=== PATIENT | male | born 1945 | race Caucasian/White ===

== ENCOUNTER 2018-01-02 22:37 | Emergency (ER) | payer BC, SELFPAY ==
[2018-01-02] VITALS (15 sets, daily range): BP systolic 103–129; BP diastolic 60–72; PULSE 48–120; RESP 13–21; TEMP 36.5; O2SAT 91–95
--- NOTE | 2018-01-02 22:58 | W.ED.GENAD ---
Discharge Plan Disposition Patient Disposition: HOSPITAL, NON-SPECIFIC Condition: Stable Discharge Details Chief Complaint: Chest Pain Clinical Impression: Acute non-ST elevation myocardial infarction (NSTEMI), Symptomatic bradycardia Primary Care Provider: Myriam Riggins ED Provider: Frank Santos Home Meds and New Rx's Prescriptions: No Action No Known Home Meds RF: 0 Medical Decision Making Patient is presenting to ED with episode of chest pressure and arm pain at home which subsequently resolved but is now having symptomatic bradycardia. His rate will go as low as the 30s. On the monitor it appears to lose his P waves but I do have no EKG to confirm that. He does not stay bradycardic for too long maybe 30-60 seconds. He does become symptomatic but he recovers on his own. He did take aspirin at home. Chest x-ray and laboratory studies are ordered. Patient continues to have episodes of symptomatic bradycardia. They appear to be sinus bradycardia. He subsequently did develop recurrent pain for which he received 1 nitroglycerin sublingually. His pain did resolve but his pressure bottomed out. He received a 500 saline bolus and his blood pressure responded. He has not had any recurrent chest pain or arm pain since then. His laboratory studies are unremarkable. His initial troponin is negative. Second troponin is sent 3 hours after the first. It is now positive at 0.6. He is therefore an NSTEMI. He is started on heparin. I am also giving him Plavix. I am holding off on nitroglycerin as he has no pain and the NTG previously bottomed him out. Case is discussed with [facility], [facility], [facility] all of which have no beds tonight. I then spoke to Dr. Felix at [facility] in [place], [place]. Patient is accepted for transfer there for non-STEMI and symptomatic bradycardia. Note there are no beds at this hospital currently. He does not need emergent cath but he will need urgent cath. Lab Data Lab results reviewed: Yes I reviewed the patient's lab results. ECG Data Attestation: I personally reviewed and interpreted this ECG (s) as follows: Prior ECG tracings: not available for review Interpretation: Initial EKG is sinus bradycardia at 58. Normal intervals and axis. No acute ST elevation. Slight biphasic type T waves in V2 V3. Second EKG continues to show sinus rhythm at 61. No real significant changes in the ST segments. Subsequent EKGs show market bradycardia in the 40s with no acute ST changes HPI General Mode of arrival: ambulatory. Date/Time Provider Initiated Documentation: 01/02/18 22:52. Limitations to Documentation: no limitations. Information obtained by: patient. HPI Narrative: Patient presents to ED with complaints of chest pressure and arm aching. Patient has no significant past medical history. He is a heavy smoker. He was watching TV tonight when he developed pressure in his chest and aching in his left arm. He had no associated symptoms. Symptoms were ongoing for a couple of hours before he took 5 baby aspirin and then decided to come into the ED. During the trip in the chest pressure and arm pain seemed to get better but he started to have episodes of feeling dizzy and lightheaded. He did not ever lose consciousness. He has not had symptoms like this previously. He had been well prior to this. Related Data Home Medications Medication Instructions Recorded Confirmed Unknown [No Known Home Meds] 01/02/18 01/02/18 Allergies Allergy/AdvReac Type Severity Reaction Status Date / Time No Known Allergies Allergy Unverified 01/02/18 22:57 General Stated Complaint: Chest Pain ARI: 2 Review of Systems Review of Systems Unobtainable due to (Acuity of medical condition) [facility] Family History Mother Essential hypertension Heart disease Hyperlipidemia Myocardial infarction Father Essential hypertension Hyperlipidemia Cerebrovascular accident Social History Smoking/Tobacco Use Status: Current every day Surgical History Colonoscopy - MAC (~2001) Exam Const General: cooperative, comfortable and no acute distress Orientation: alert and oriented x3 [facility] Head: normocephalic and atraumatic Eyes Pupils: PERRL Neck Neck: trachea midline and supple Resp Effort & Inspection: normal respiratory effort Auscultation: clear to auscultation bilaterally Cardio Rate: regular rate Rhythm: regular rhythm Heart Sounds: S1 normal and S2 normal Pulses: radial pulses present GI Palpation: soft, not firm, no guarding and nontender Skin General skin exam: no rashes or lesions noted Neuro General: alert, oriented x3, no focal motor deficits and CN's II-XI intact bilaterally Extrem General: normal to inspection and no clubbing, cyanosis or edema Course Vital Signs Temperature 97.7 F 01/02/18 22:45 Pulse 66 01/02/18 22:45 Respiratory Rate 18 01/02/18 22:45 Blood Pressure 109/60 01/02/18 22:45 Pulse Oximetry 95 01/02/18 22:45 Temperature 97.7 F 01/02/18 22:45 Temperature Source Temporal Artery Scan 01/02/18 22:45 Pulse 66 01/02/18 22:45 Respiratory Rate 13 01/02/18 22:53 Respiratory Effort 01/02/18 22:53 Respiratory Depth Normal 01/02/18 22:53 Respiratory Pattern Normal 01/02/18 22:53 Blood Pressure 109/60 01/02/18 22:45 Pulse Oximetry 95 01/02/18 22:45 Oxygen Delivery Method Room Air 01/02/18 22:45 Oxygen Flow Rate 0 01/02/18 22:45 Pain Level 0 01/02/18 22:53 Critical Care Time Critical Care Time: Yes Total Critical Care Time: 75 Attestation: NSTEMI with bradycardia requiring transfer
--- NOTE | 2018-01-02 23:25 | DI.RAD_ITS ---
SYMPTOMS/DIAGNOSIS: CHEST PAIN PORTABLE AP CHEST: The heart is not enlarged. The lungs appear grossly clear and well expanded with minimal linear radiodensities in the lung bases consistent with scarring or atelectasis. CONCLUSION: No evidence of acute disease.
[2018-01-02 23:29] LABS: Abs Immature Grans 0.01 k/cumm (0.0-0.09); Absolute Basophil Count 0.07 k/cumm (0.0-0.2); Absolute Eosinophil Count 0.64 k/cumm (0.0-0.7); Absolute Lymphocyte Count 3.83 k/cumm (1.2-3.4); Absolute Monocyte Count 0.91 k/cumm (0.11-0.7); Absolute Neutrophil Count 4.21 k/cumm (1.2-6.7); Basophils % 0.7; Eosinophils % 6.6; HGB 15.1 g/dL (13.5-17.5); Immature Grans % 0.1; Lymphocytes % 39.6; Mean Corp. HGB Concentration 34.3 g/dL (32.0-36.0); Mean Corpuscular Hemoglobin 31.4 pg (27.0-33.0); Mean Corpuscular Volume 91.5 fL (80-95); Mean Platelet Volume 10.4 fL (8.0-11.0); Monocytes % 9.4; Neutrophils % 43.6; Platelet Count 277 x1000/uL (130-400); RBC 4.81 m/cumm (4.50-6.00); RBC Distribution Width 13.1 % (11.8-14.1); White Blood Cell Count 9.67 k/cumm (4.4-10.8)
[2018-01-02 23:43] LABS: PTT Activated 23.4 sec (21.0-31.4); Prothrombin Time 9.4 sec (9.3-10.8)
[2018-01-02 23:46] LABS: ALT 27 U/L (12-78); AST 20 U/L (15-37); Albumin 3.4 g/dL (3.4-5.0); Alkaline Phosphatase 92 U/L (46-116); Anion Gap 8.8 mmol/L (3-11); BUN 16 mg/dL (7-18); Bilirubin, Total 0.2 mg/dL (0.2-1.0); CO2 29.2 mmol/L (21.0-32.0); CREATININE 1.24 mg/dL (0.70-1.30); Calcium 8.4 mg/dL (8.5-10.1); Chloride 99 mmol/L (98-107); Estimated GFR 57.47 (mL/min/1.73m2); Glucose 161 mg/dL (70-100); Potassium 3.5 mmol/L (3.5-5.1); Sodium 137 mmol/L (136-145); Total Protein 6.7 g/dL (6.4-8.2)
[2018-01-02 23:47] LABS: Bilirubin, Direct < 0.05 mg/dL (0.00-0.20); Troponin I < 0.02 ng/mL (0.00-0.06)
[2018-01-03] VITALS (55 sets, daily range): BP systolic 65–155; BP diastolic 35–70; PULSE 38–81; RESP 10–26; O2SAT 89–96
--- NOTE | 2018-01-03 00:09 | DI.VRAD_ITS ---
EXAM: XR Chest, 1 View EXAM DATE/TIME: 01/02/2018 11:22 PM CLINICAL HISTORY: 72 years old, male; Pain; Chest pain; Type not specified TECHNIQUE: XR of the chest, 1 view. COMPARISON: CR CHEST 2 VIEWS PA,LAT 03/11/2013 12:51 PM FINDINGS: Lungs: Unremarkable. No consolidation. Pleural space: Unremarkable. No pleural effusion. No pneumothorax. Heart/Mediastinum: Unremarkable. No cardiomegaly. Bones/joints: Unremarkable. IMPRESSION: No acute findings. Dictated and Authenticated by: Wolf Otero MD. Ordering:DIMITRY IBARRA MD
--- NOTE | 2018-01-03 00:35 | ED.GENADUL_ITS ---
Discharge Plan Disposition Patient Disposition: HOSPITAL, NON-SPECIFIC Condition: Stable Discharge Details Chief Complaint: Chest Pain Clinical Impression: Acute non-ST elevation myocardial infarction (NSTEMI), Symptomatic bradycardia Primary Care Provider: Myriam Riggins ED Provider: Frank Santos Home Meds and New Rx's Prescriptions: No Action No Known Home Meds RF: 0 Medical Decision Making Patient is presenting to ED with episode of chest pressure and arm pain at home which subsequently resolved but is now having symptomatic bradycardia. His rate will go as low as the 30s. On the monitor it appears to lose his P waves but I do have no EKG to confirm that. He does not stay bradycardic for too long maybe 30-60 seconds. He does become symptomatic but he recovers on his own. He did take aspirin at home. Chest x-ray and laboratory studies are ordered. Patient continues to have episodes of symptomatic bradycardia. They appear to be sinus bradycardia. He subsequently did develop recurrent pain for which he received 1 nitroglycerin sublingually. His pain did resolve but his pressure bottomed out. He received a 500 saline bolus and his blood pressure responded. He has not had any recurrent chest pain or arm pain since then. His laboratory studies are unremarkable. His initial troponin is negative. Second troponin is sent 3 hours after the first. It is now positive at 0.6. He is therefore an NSTEMI. He is started on heparin. I am also giving him Plavix. I am holding off on nitroglycerin as he has no pain and the NTG previously bottomed him out. Case is discussed with [facility], [facility], [facility] all of which have no beds tonight. I then spoke to Dr. Felix at [facility] in [place], [place]. Patient is accepted for transfer there for non-STEMI and symptomatic bradycardia. Note there are no beds at this hospital currently. He does not need emergent cath but he will need urgent cath. Lab Data Lab results reviewed: Yes I reviewed the patient's lab results. ECG Data Attestation: I personally reviewed and interpreted this ECG (s) as follows: Prior ECG tracings: not available for review Interpretation: Initial EKG is sinus bradycardia at 58. Normal intervals and axis. No acute ST elevation. Slight biphasic type T waves in V2 V3. Second EKG continues to show sinus rhythm at 61. No real significant changes in the ST segments. Subsequent EKGs show market bradycardia in the 40s with no acute ST changes HPI General Mode of arrival: ambulatory . Date/Time Provider Initiated Documentation: 01/02/18 22:52 . Limitations to Documentation: no limitations . Information obtained by: patient . HPI Narrative: Patient presents to ED with complaints of chest pressure and arm aching. Patient has no significant past medical history. He is a heavy smoker. He was watching TV tonight when he developed pressure in his chest and aching in his left arm. He had no associated symptoms. Symptoms were ongoing for a couple of hours before he took 5 baby aspirin and then decided to come into the ED. During the trip in the chest pressure and arm pain seemed to get better but he started to have episodes of feeling dizzy and lightheaded. He did not ever lose consciousness. He has not had symptoms like this previously. He had been well prior to this. Related Data Home Medications Medication Instructions Recorded Confirmed Unknown [No Known Home Meds] 01/02/18 01/02/18 Allergies Allergy/AdvReac Type Severity Reaction Status Date / Time No Known Allergies Allergy Unverified 01/02/18 22:57 General Stated Complaint: Chest Pain ARI: 2 Review of Systems Review of Systems Unobtainable due to (Acuity of medical condition) [facility] Family History Mother Essential hypertension Heart disease Hyperlipidemia Myocardial infarction Father Essential hypertension Hyperlipidemia Cerebrovascular accident Social History Smoking/Tobacco Use Status: Current every day Surgical History Colonoscopy - MAC (~2001) Exam Const General: cooperative, comfortable and no acute distress Orientation: alert and oriented x3 [facility] Head: normocephalic and atraumatic Eyes Pupils: PERRL Neck Neck: trachea midline and supple Resp Effort & Inspection: normal respiratory effort Auscultation: clear to auscultation bilaterally Cardio Rate: regular rate Rhythm: regular rhythm Heart Sounds: S1 normal and S2 normal Pulses: radial pulses present GI Palpation: soft, not firm, no guarding and nontender Skin General skin exam: no rashes or lesions noted Neuro General: alert, oriented x3, no focal motor deficits and CN's II-XI intact bilaterally Extrem General: normal to inspection and no clubbing, cyanosis or edema Course Vital Signs Temperature 97.7 F 01/02/18 22:45 Pulse 66 01/02/18 22:45 Respiratory Rate 18 01/02/18 22:45 Blood Pressure 109/60 01/02/18 22:45 Pulse Oximetry 95 01/02/18 22:45 Temperature 97.7 F 01/02/18 22:45 Temperature Source Temporal Artery Scan 01/02/18 22:45 Pulse 66 01/02/18 22:45 Respiratory Rate 13 01/02/18 22:53 Respiratory Effort 01/02/18 22:53 Respiratory Depth Normal 01/02/18 22:53 Respiratory Pattern Normal 01/02/18 22:53 Blood Pressure 109/60 01/02/18 22:45 Pulse Oximetry 95 01/02/18 22:45 Oxygen Delivery Method Room Air 01/02/18 22:45 Oxygen Flow Rate 0 01/02/18 22:45 Pain Level 0 01/02/18 22:53 Critical Care Time Critical Care Time: Yes Total Critical Care Time: 75 Attestation: NSTEMI with bradycardia requiring transfer
[2018-01-03] MEDS: Normal Saline 500 ML IV (00:49)
[2018-01-03] MEDS: Clopidogrel 300 MG TAB 600 MG PO (03:14)
[2018-01-03] MEDS: Normal Saline 1,000 ML 150 ML IV (04:26)
[2018-01-03] MEDS: Ondansetron 4 MG/2 ML VIAL IVP (04:26)
== END 2018-01-03 05:21 | disposition short-term general hospital (02) ==
PROVIDERS: Nurse Practitioner Family; Emergency Provider Emergency Medicine; PCP Family Medicine
DX: I21.4 Non-ST elevation (NSTEMI) myocardial infarction (principal); R00.1 Bradycardia, unspecified; F17.210 Nicotine dependence, cigarettes, uncomplicated
CPT/HCPCS: 36415; 80053; 80076; 93005; 96361; 96365; 96366; 96375; 96376; 99291; 99292; 71045; 83735; 84484; 85025; 85610; 85730; 93010; J2405

== ENCOUNTER 2018-01-24 12:26 | Emergency (ER) | payer BC, SELFPAY ==
[2018-01-24] VITALS (26 sets, daily range): BP systolic 106–169; BP diastolic 63–80; PULSE 56–78; RESP 7–19; TEMP 36.5; O2SAT 96–100
[2018-01-24 12:53] LABS: Abs Immature Grans 0.04 k/cumm (0.0-0.09); Absolute Basophil Count 0.11 k/cumm (0.0-0.2); Absolute Eosinophil Count 0.45 k/cumm (0.0-0.7); Absolute Lymphocyte Count 2.06 k/cumm (1.2-3.4); Absolute Monocyte Count 0.99 k/cumm (0.11-0.7); Absolute Neutrophil Count 4.41 k/cumm (1.2-6.7); Basophils % 1.4; Eosinophils % 5.6; HCT 34.3 % (40.0-50.0); HGB 11.1 g/dL (13.5-17.5); Immature Grans % 0.5; Lymphocytes % 25.6; Mean Corp. HGB Concentration 32.4 g/dL (32.0-36.0); Mean Corpuscular Hemoglobin 30.7 pg (27.0-33.0); Mean Platelet Volume 8.6 fL (8.0-11.0); Monocytes % 12.3; Neutrophils % 54.6; RBC 3.61 m/cumm (4.50-6.00); RBC Distribution Width 13.8 % (11.8-14.1); White Blood Cell Count 8.06 k/cumm (4.4-10.8)
[2018-01-24 13:00] LABS: Platelet Count 831 x1000/uL (130-400)
[2018-01-24 13:10] LABS: ALT 56 U/L (12-78); AST 28 U/L (15-37); Albumin 3.2 g/dL (3.4-5.0); Alkaline Phosphatase 212 U/L (46-116); Anion Gap 8.5 mmol/L (3-11); BUN 17 mg/dL (7-18); Bilirubin, Total 0.3 mg/dL (0.2-1.0); CO2 26.5 mmol/L (21.0-32.0); CREATININE 0.99 mg/dL (0.70-1.30); Calcium 8.7 mg/dL (8.5-10.1); Chloride 102 mmol/L (98-107); Glucose 97 mg/dL (70-100); NT-proBNP 928 pg/mL; Potassium 4.4 mmol/L (3.5-5.1); Sodium 137 mmol/L (136-145)
[2018-01-24 13:11] LABS: Troponin I < 0.02 ng/mL (0.00-0.06)
[2018-01-24 13:23] LABS: D-Dimer 4122 ng/mlFEU (<500)
--- NOTE | 2018-01-24 13:25 | ED.GENADUL_ITS ---
Discharge Plan Disposition Patient Disposition: HOME Condition: Good Discharge Details Chief Complaint: GenMedical Clinical Impression: SOB (shortness of breath) Primary Care Provider: Myriam Riggins ED Provider: Chase Mosley Home Meds and New Rx's Prescriptions: New furosemide 20 mg tablet 20 mg PO DAILY Qty: 14 RF: 0 No Action atorvastatin 80 mg Tablet 80 mg PO QPM RF: 0 clopidogrel 75 mg Tablet 75 mg PO DAILY RF: 0 aspirin 81 mg Tablet,Chewable 81 mg PO DAILY RF: 0 metoprolol tartrate 25 mg Tablet 25 mg PO DAILY RF: 0 acetaminophen [Tylenol] 325 mg Capsule 975 mg PO Q6H PRNRF: 0 Discharge Instructions Instructions: Dyspnea (ED) Additional Instructions: Please take 20 mg of Lasix daily until you are seen and reassessed by your cardiothoracic surgeon at your scheduled appointment next week. If you notice any worsening of your symptoms, or any new symptoms such as vomiting, diarrhea, fever, chills, shortness of breath, chest pain, numbness, weakness, or fainting , please return immediately to the emergency department for reevaluation. Please follow up with your primary care provider as soon as possible for reassessment and reevaluation. As always, it was a pleasure participating in your medical care today. Referrals: Myriam Riggins MD, [place] [Primary Care Provider] - Medical Decision Making This is a pleasant 72-year-old male who presents for evaluation of 3 pound weight gain in the last 12 hours, with very mild shortness of breath. He denies any significant chest pain. He recently had open heart surgery at [facility], which was complicated by bilateral pneumothoraces. He was discharged 5 days ago. He has been doing very well since then, taking his medications as directed, having no other associated complaints. With his brief weight gain, and very mild shortness of breath he did come in to be checked out. No history of blood clots or other past medical history. Physical exam demonstrates well-healing postsurgical scars, no evidence of dehiscence or abnormalities. No significant swelling in the lower extremities. We will perform a laboratory workup, an imaging study of the chest to rule out any acute process. We will get a d-dimer as he is slightly at increased risk for blood clots after his recent procedure. This is negative I think a CT scan of the chest will be reasonable with his multiple recent surgical complications. EKG 12: 37 Rate 67, intervals normal, sinus rhythm, no ST elevations or depressions. Inverted T wave in V2 and V1. No Q waves. No other significant abnormalities. 3:[address] scan has returned and demonstrates evidence of no acute process, postsurgical processes are noted, but no other significant abnormalities. Patient is feeling well, demonstrates reassuring vital signs, and on the small increase in his proBNP on workup. Troponin and EKG are normal. I discussed the case with Evelia Sidhu the nurse practitioner for Dr. Fitzgerald[facility] with a cardiothoracic surgeon. She agrees with the plan, lab findings, and imaging studies, and has no additional recommendations for workup. She too feels that he would be a safe and stable candidate for discharge home. She recommends starting 40 mg of Lasix here, and then 20 daily for his 3 pound weight gain. She recommends continued close follow-up at his appointment next week. Patient will be given his first dose of Lasix here. We discussed red flags which to return as well as the importance of close follow-up with PCP. I have extensively reviewed the treatment plan and discharge instructions with the patient. I have addressed all patient concerns at this time. The patient was made aware of what symptoms to monitor for that would warrant a return to the emergency department. Discussed the plan with the patient, they demonstrate verbal understanding and agreement with our assessment and plan at this time. CT ANGIOGRAPHY CHEST: CT angiography was performed with multi slice acquisition and multi planar and 3D reconstruction. CT Angiography of the chest was performed with a bolus infusion of 100 cc's of Omnipaque 350. Images obtained through the upper abdomen show unremarkable appearance of visualized portions of the liver, spleen, adrenals, kidneys and pancreas. The patient has reportedly had recent CABG surgery and recent bilateral pneumothorax. There are small posteriorly located loculated pleural effusions. There is a tiny pericardial effusion. There is a small quantity of gas in the right anterior chest wall at the level of the lung apex. No pneumothorax seen. The tracheobronchial tree appears intact. Numerous pulmonary blebs are noted and there is diffuse central lobular emphysema. No focal consolidation. No mediastinal or hilar adenopathy. No gross hematoma identified. CONCLUSION: Presumed post surgical findings as described above. No evidence of acute pulmonary embolus or pneumothorax. HPI General Date/Time Provider Initiated Documentation: 01/24/18 12:33 . HPI Narrative: This is a 72-year-old male who had no past medical history prior to his most recent hospital visit 2 weeks ago, however he was here on the of this past month and was diagnosed with an end STEMI, transferred to [facility] for medical management and eventually received a CABG. He was discharged 5 days ago. Since then he has been doing well. He has had no atypical chest pain, shortness of breath or weight gain, he has been taking his aspirin, Plavix, metoprolol, and cholesterol medications as directed. However last night he became slightly short of breath, weight himself and noticed a prompt 3 pound weight gain. He denies any swelling in his lower extremities, any cough, fever, chills, pleuritic chest pain, arm or neck pain, numbness tingling or weakness. He denies any other symptoms. He states that he came in today to get checked out. He denies any aggravating or relieving factors. He denies any other complaints at this time. He denies any current tobacco use, alcohol use, IV or illicit drug use. Related Data Home Medications Medication Instructions Recorded Confirmed acetaminophen [Tylenol] 975 mg PO Q6H PRN 01/24/18 01/24/18 aspirin 81 mg PO DAILY 01/24/18 01/24/18 atorvastatin 80 mg PO QPM 01/24/18 01/24/18 clopidogrel 75 mg PO DAILY 01/24/18 01/24/18 furosemide 20 mg PO DAILY #14 tab 01/24/18 metoprolol tartrate 25 mg PO DAILY 01/24/18 01/24/18 Previous Rx's Medication Instructions Recorded furosemide 20 mg PO DAILY #14 tab 01/24/18 Allergies Allergy/AdvReac Type Severity Reaction Status Date / Time No Known Allergies Allergy Unverified 01/02/18 22:57 General Stated Complaint: GenMedical ARI: 3 Review of Systems Review of Systems All systems reviewed & are unremarkable except as noted in HPI and below Exam Narrative Exam Narrative: 1.Const: Well-nourished, Well-developed, appearing stated age 2.Eyes: PERRL, no conjunctival injection, and symmetrical lids. 3.ENT: Atraumatic external nose and ears. Moist MM. Neck: Symmetric, trachea midline, No thyromegaly. 4.CVS: +S1/S2, No murmurs or gallops. Peripheral pulses 2+ and equal in all extremities. Brisk capillary refill in all extremities. Patient's chest wall demonstrates a well-healing sternotomy scar, as well as 3 other well-healing sutures on each left and right chest wall in the epigastric region for previous chest tube and drain placement. Areas are clean dry and intact. No other significant abnormalities, no evidence of dehiscence. No subcutaneous crepitus. 5.RESP: Unlabored respiratory effort. Clear to auscultation bilaterally. No wheezes rales or rhonchi 6.GI: Soft, Nontender/Nondistended, No hepatosplenomegaly. No guarding or rebound. 7.MSK: Normocephalic/Atraumatic, Extremities w/o deformity or ttp No cyanosis or clubbing, Normal movement of all extremities. Patient demonstrates no pitting edema or swelling of his lower extremities. Well-healing incisions from saphenous vein extraction on the right lower extremity. 8.Skin: Warm, Dry. No rashes or lesions. 9.Neuro: flatwork feeder II-XII grossly intact. Sensation grossly intact, no focal neurologic deficits. 10.Psych: (AAO) x3. Appropriate mood and affect Course Vital Signs Temperature 36.5 C 01/24/18 12:33 Pulse 63 01/24/18 12:33 Respiratory Rate 14 01/24/18 12:33 Blood Pressure 169/80 H 01/24/18 12:33 Pulse Oximetry 100 01/24/18 12:33 Temperature 36.5 C 01/24/18 12:33 Temperature Source Temporal Artery Scan 01/24/18 12:33 Pulse 63 01/24/18 12:33 Respiratory Rate 14 01/24/18 12:33 Respiratory Effort 01/24/18 13:02 Respiratory Depth Normal 01/24/18 13:02 Blood Pressure 169/80 H 01/24/18 12:33 Blood Pressure Position Sitting 01/24/18 12:33 Pulse Oximetry 100 01/24/18 12:33 Oxygen Delivery Method Room Air 01/24/18 12:33 Oxygen Flow Rate 0 01/24/18 12:33 Pain Level 0 01/24/18 12:33 Lab/Test Results Lab/Test Results: Laboratory Tests Range/Units 01/24/18 01/24/18 12:45 12:45 WBC (4.4-10.8) k/cumm 8.06 RBC (4.50-6.00) m/cumm 3.61 L Hgb (13.5-17.5) g/dL 11.1 L Hct (40.0-50.0) % 34.3 L MCV (80-95) fL 95.0 MCH (27.0-33.0) pg 30.7 MCHC (32.0-36.0) g/dL 32.4 RDW (11.8-14.1) % 13.8 Plt Count (130-400) x1000/uL 831 H* D MPV (8.0-11.0) fL 8.6 Immature Gran % 0.5 Neutrophils % 54.6 Lymphocytes % 25.6 Monocytes % 12.3 Eosinophils % 5.6 Basophils % 1.4 Absolute Neutrophils (1.2-6.7) k/cumm 4.41 Absolute Lymphocytes (1.2-3.4) k/cumm 2.06 Absolute Monocytes (0.11-0.7) k/cumm 0.99 H Absolute Eosinophils (0.0-0.7) k/cumm 0.45 Absolute Basophils (0.0-0.2) k/cumm 0.11 Sodium (136-145) mmol/L 137 Potassium (3.5-5.1) mmol/L 4.4 Chloride (98-107) mmol/L 102 Carbon Dioxide (21.0-32.0) mmol/L 26.5 Anion Gap (3-11) mmol/L 8.5 BUN (7-18) mg/dL 17 Creatinine (0.70-1.30) mg/dL 0.99 Estimated GFR/1.73 m2 (mL/min/1.73m2) >= 60.00 Glucose (70-100) mg/dL 97 Calcium (8.5-10.1) mg/dL 8.7 Total Bilirubin (0.2-1.0) mg/dL 0.3 AST (15-37) U/L 28 ALT (12-78) U/L 56 Alkaline Phosphatase (46-116) U/L 212 H Troponin I (0.00-0.06) ng/mL < 0.02 NT-Pro-B Natriuret Pep ( - 299) pg/mL 928 H Total Protein (6.4-8.2) g/dL 7.0 Albumin (3.4-5.0) g/dL 3.2 L
--- NOTE | 2018-01-24 14:24 | NUR.NOTE ---
Pt. is resting in NAD, VSS on the monitor. Awaiting CT scan.
[2018-01-24] MEDS: Omnipaque 350 MG/ML 100 ML BTL IJ (14:30)
[2018-01-24] MEDS: Furosemide 40 MG TAB PO (15:35)
== END 2018-01-24 15:44 | disposition home or self-care (01) ==
PROVIDERS: Emergency Provider Student in an Organized Health Care Education/Training Program; PCP Family Medicine
DX: R06.02 Shortness of breath (principal); R63.5 Abnormal weight gain; Z95.1 Presence of aortocoronary bypass graft
CPT/HCPCS: 36415; 71275; 80053; 93005; 99285; 83880; 84484; 85025; 85379; 93010; J3490

== ENCOUNTER 2018-02-04 15:00 | Outpatient (RCR) | payer BC, SELFPAY | END 2018-02-08 23:59 | disposition home or self-care (01) | LOC: CR 15:00 | PROVIDERS: PCP Family Medicine; Visit Provider Family Medicine | DX: Z51.89 Encounter for other specified aftercare (principal) ==

== ENCOUNTER 2018-02-27 01:56 | Outpatient (CLI) | payer BC, SELFPAY ==
[2018-02-27 12:15] LABS: ALT 64 U/L (12-78); AST 31 U/L (15-37); Albumin 3.7 g/dL (3.4-5.0); Alkaline Phosphatase 146 U/L (46-116); Anion Gap 10.2 mmol/L (3-11); BUN 15 mg/dL (7-18); Bilirubin, Total 0.3 mg/dL (0.2-1.0); CO2 27.8 mmol/L (21.0-32.0); CREATININE 1.16 mg/dL (0.70-1.30); Calcium 8.7 mg/dL (8.5-10.1); Chloride 100 mmol/L (98-107); Cholesterol 157 mg/dL (50-200); Glucose 202 mg/dL (70-100); HDL Cholesterol 54 mg/dL (40-60); LDL CHOLESTEROL 78 mg/dL (<100); Potassium 4.5 mmol/L (3.5-5.1); Sodium 138 mmol/L (136-145); Total Protein 6.8 g/dL (6.4-8.2); Triglyceride 212 mg/dL (30-150)
== END 2018-02-27 02:16 ==
PROVIDERS: PCP Family Medicine; Visit Provider Family Medicine
DX: I25.10 Atherosclerotic heart disease of native coronary artery without angina pectoris (principal)
CPT/HCPCS: 36415; 80053; 80061; 83721

== ENCOUNTER 2018-03-01 13:50 | Outpatient (RCR) | payer BC, SELFPAY | END 2018-03-11 23:59 | disposition home or self-care (01) | LOC: CR 13:50 | PROVIDERS: PCP Family Medicine; Visit Provider Family Medicine | DX: I25.2 Old myocardial infarction (principal); I25.10 Atherosclerotic heart disease of native coronary artery without angina pectoris; Z51.89 Encounter for other specified aftercare | CPT/HCPCS: S9472 ==

== ENCOUNTER 2018-03-11 11:30 | Outpatient (CLI) | payer BC, SELFPAY ==
--- NOTE | 2018-03-11 10:35 | DI.RAD_ITS ---
SYMPTOMS/DIAGNOSIS: CHF, RECENT CABG, I50.9 HEART FAILURE PA AND LATERAL CHEST: Comparison is made with [id number]. The heart size is normal. The patient is status post CABG. The lungs appear hyperinflated. There is no evidence of infiltrate, effusion or pulmonary edema. IMPRESSION: COPD. No acute abnormality.
[2018-03-11 13:18] LABS: ALT 69 U/L (12-78); AST 29 U/L (15-37); Albumin 3.6 g/dL (3.4-5.0); Alkaline Phosphatase 147 U/L (46-116); Anion Gap 5.7 mmol/L (3-11); BUN 14 mg/dL (7-18); Bilirubin, Total 0.3 mg/dL (0.2-1.0); CO2 31.3 mmol/L (21.0-32.0); CREATININE 1.06 mg/dL (0.70-1.30); Calcium 8.6 mg/dL (8.5-10.1); Chloride 104 mmol/L (98-107); Glucose 83 mg/dL (70-100); NT-proBNP 421 pg/mL; Potassium 4.4 mmol/L (3.5-5.1); Sodium 141 mmol/L (136-145); TSH (W/Ref FT4) 1.98 uIU/mL (0.358-3.74); Total Protein 6.9 g/dL (6.4-8.2)
== END 2018-03-11 11:50 ==
PROVIDERS: PCP Family Medicine; Visit Provider Family Medicine
DX: I50.9 Heart failure, unspecified (principal); J44.9 Chronic obstructive pulmonary disease, unspecified; Z95.1 Presence of aortocoronary bypass graft
CPT/HCPCS: 36415; 80053; 71046; 83880; 84443

== ENCOUNTER 2018-03-13 01:37 | Outpatient (CLI) | payer BC, SELFPAY ==
--- NOTE | 2018-03-13 07:30 | MERGE_ITS ---
*[facility]* *[facility]* [address] [place] [address] Date of study: 03/13/2018 Transthoracic Echocardiography M-mode, complete 2D, complete spectral Doppler, and color Doppler *STUDY CONCLUSIONS* Summary: 1. Left ventricle: The cavity size was normal. Wall thickness was increased in a pattern of mild LVH. Systolic function was normal. The estimated ejection fraction was 55-60%. Wall motion was normal; there were no regional wall motion abnormalities. 2. Aortic valve: Sclerosis without stenosis. 3. Ascending aorta: The ascending aorta was mildly dilated. 4. Right ventricle: The cavity size was normal. Wall thickness was normal. Systolic function was normal. 5. Inferior vena cava: The vessel was patent and small, appearing collapsed. The respirophasic diameter changes were in the normal range (greater than or equal to 50%). *PATIENT PRESENTATION* Height: 177.8cm ((70in) ) S/D Pressure: 114 / 63 Weight: 83kg ((182.6lb) ) BSA: 2.04m^2 Test start time: 07:40 AM. Test stop time: 08:40 AM. ORDERING Myriam Riggins REFERRING Myriam Riggins PERFORMING [facility] ARTS THERAPIST RT Mary Jane (Luis Fernando)(STEFFI), STEVEN *PROCEDURE DATA* Procedure information: The patient was identified by two identifiers. This study was interpreted by [facility]. Pertinent images and digital data are archived for permanent storage and are available for subsequent review. No prior study was available for comparison. Study status: Routine. Transthoracic echocardiography. M-mode, complete 2D, complete spectral Doppler, and color Doppler. A Transthoracic Echocardiogram was performed. Scanning was performed from the parasternal, apical, subcostal, and suprasternal notch acoustic windows. Images were obtained using an [id number] cardiac ultrasound machine. Image quality was adequate. Study completion: The patient tolerated the procedure well. There were no complications. History: PMH: CHF recent cabg. *CARDIAC ANATOMY* Left ventricle: The cavity size was normal. Wall thickness was increased in a pattern of mild LVH. Systolic function was normal. The estimated ejection fraction was 55-60%. Wall motion was normal; there were no regional wall motion abnormalities. Diastolic parameters were not diagnostic. Aortic valve: Trileaflet; mildly thickened, mildly calcified leaflets. Sclerosis without stenosis. Mobility was not restricted. Doppler: Transvalvular velocity was within the normal range. There was no stenosis. There was no significant regurgitation. VTI ratio of LVOT to aortic valve: 0.71. Valve area (VTI): 2.5cm^2. Indexed valve area (VTI): 1.2cm^2/m^2. Peak velocity ratio of LVOT to aortic valve: 0.68. Valve area (Vmax): 2.4cm^2. Indexed valve area (Vmax): 1.2cm^2/m^2. Mean velocity ratio of LVOT to aortic valve: 0.61. Valve area (Vmean): 2.1cm^2. Indexed valve area (Vmean): 1cm^2/m^2. Mean gradient (S): 6.1mm Hg. Peak gradient (S): 10.8mm Hg. Aorta: Aortic root: The aortic root was normal in size. Ascending aorta: The ascending aorta was mildly dilated. Mitral valve: Structurally normal valve. Mobility was not restricted. Doppler: Transvalvular velocity was within the normal range. There was no evidence for stenosis. There was no significant regurgitation. Valve area by pressure half-time: 2.9cm^2. Indexed valve area by pressure half-time: 1.4cm^2/m^2. Left atrium: The atrium was normal in size. Right ventricle: The cavity size was normal. Wall thickness was normal. Systolic function was normal. Pulmonic valve: Structurally normal valve. Doppler: Transvalvular velocity was within the normal range. There was no evidence for stenosis. There was no significant regurgitation. Peak gradient (S): 4.1mm Hg. Tricuspid valve: Structurally normal valve. Doppler: Transvalvular velocity was within the normal range. There was no evidence for stenosis. There was mild regurgitation. Pulmonary artery: Pulmonary systolic pressure was within the normal range, in the range of 30mm Hg to 35mm Hg. Right atrium: The atrium was normal in size. Pericardium: There was no pericardial effusion. Systemic veins: Inferior vena cava: Well visualized. The vessel was patent and small, appearing collapsed. The respirophasic diameter changes were in the normal range (greater than or equal to 50%). Baseline ECG: Bradycardia. Measurements Left ventricle Value Reference LV ID, ED, PLAX 5.0 cm 3.5 - 6.0 LV ID, ES, PLAX 3.2 cm 2.1 - 4.0 LV PW thickness, ED, PLAX 1.1 cm LV end-diastolic volume, 1-p A2C 67 ml LV ejection fraction, 1-p A2C 54 % LV end-diastolic volume, 1-p A4C 87 ml LV ejection fraction, 1-p A4C 55 % LV e', lateral 0.11 m/sec LV E/e', lateral 5 LV e', medial 0.07 m/sec LV E/e', medial 7 LV e', average 0.09 m/sec LV E/e', average 6 Ventricular septum Value Reference IVS thickness, ED, PLAX 1.2 cm LVOT Value Reference LVOT ID, A-P 2.1 cm LVOT area 3.5 cm^2 LVOT peak velocity, S 1.12 m/sec LVOT mean velocity, S 0.72 m/sec LVOT VTI, S 23.6 cm LVOT peak gradient, S 5 mm Hg LVOT mean gradient, S 2.4 mm Hg Stroke volume (SV), LVOT DP 83 ml Stroke index (SV/bsa), LVOT DP 41 ml/m^2 Aortic valve Value Reference Aortic valve peak velocity, S 1.6 m/sec Aortic valve mean velocity, S 1.18 m/sec Aortic valve VTI, S 33.0 cm Aortic mean gradient, S 6.1 mm Hg Aortic peak gradient, S 10.8 mm Hg VTI ratio, LVOT/AV 0.71 Aortic valve area, VTI 2.5 cm^2 Velocity ratio, peak, LVOT/AV 0.68 Aortic valve area, peak velocity 2.4 cm^2 Velocity ratio, mean, LVOT/AV 0.61 Aortic valve area, mean velocity 2.1 cm^2 Aortic valve area/bsa, mean velocity 1 cm^2/m^2 Aorta Value Reference Aortic root ID, ED 3.1 cm Ascending aorta ID, A-P, S 3.7 cm Left atrium Value Reference LA ID, A-P, ES 3.9 cm LA ID/bsa, A-P 1.9 cm/m^2 <=2.2 LA area, ES, A4C 20.2 cm^2 8.8 - 23.4 LA area, ES, A2C 19 cm^2 LA volume/bsa, ES, 1-p A4C 31 ml/m^2 LA volume, ES, 2-p 54 ml LA volume/bsa, ES, 2-p 27 ml/m^2 LA/aortic root ratio 1.24 Mitral valve Value Reference Mitral E-wave peak velocity 0.5 m/sec Mitral A-wave peak velocity 0.63 m/sec Mitral deceleration time (H) 265 ms 150 - 230 Mitral pressure half-time 77 ms Mitral E/A ratio, peak 0.79 Mitral valve area, PHT, DP 2.9 cm^2 Tricuspid valve Value Reference Tricuspid regurg peak velocity 2.6 m/sec Tricuspid peak RV-RA gradient 27.1 mm Hg Right atrium Value Reference RA area, ES, A4C 17.6 cm^2 8.3 - 19.5 Pulmonic valve Value Reference Pulmonic peak gradient, S 4.1 mm Hg Legend: (L) and (H) akin values outside specified reference range. I have personally reviewed the images and have reviewed and edited the reported findings. Electronically signed by Lalito Madden 03/13/2018 11:17
== END 2018-03-13 01:57 ==
PROVIDERS: PCP Family Medicine; Visit Provider Family Medicine
DX: I50.9 Heart failure, unspecified (principal); I25.10 Atherosclerotic heart disease of native coronary artery without angina pectoris; I25.2 Old myocardial infarction; Z95.1 Presence of aortocoronary bypass graft
CPT/HCPCS: 93306

== ENCOUNTER 2018-03-20 01:02 | Outpatient (CLI) | payer BC, SELFPAY ==
[2018-03-20 08:45] LABS: Anion Gap 7.3 mmol/L (3-11); BUN 22 mg/dL (7-18); CO2 30.7 mmol/L (21.0-32.0); CREATININE 1.29 mg/dL (0.70-1.30); Calcium 9.4 mg/dL (8.5-10.1); Chloride 100 mmol/L (98-107); Estimated GFR 54.91 (mL/min/1.73m2); Glucose 97 mg/dL (70-100); NT-proBNP 152 pg/mL; Potassium 4.7 mmol/L (3.5-5.1); Sodium 138 mmol/L (136-145)
== END 2018-03-20 01:22 ==
PROVIDERS: PCP Family Medicine; Visit Provider Family Medicine
DX: R06.02 Shortness of breath (principal)
CPT/HCPCS: 36415; 80048; 83880

== ENCOUNTER 2018-03-25 12:53 | Outpatient (CLI) | payer BC, SELFPAY ==
--- NOTE | 2018-03-25 | PFT_ITS ---
PULMONARY FUNCTION TEST REPORT Patient identification - Ilir Laird DATE OF - 1945 DATE OF SERVICE - March 25, 2018 REQUESTING PROVIDER - Myriam Riggins M.D. INTERPRETATION OF STUDY Spirometry shows mild obstructive airways disease with significant bronchodilator response. LUNG VOLUMES - Lung volumes show no evidence of restriction. There is mild hyperinflation and air trapping. DIFFUSION CAPACITY- Mildly reduced, which is moderately reduced when corrected to alveolar volume. AIRWAY RESISTANCE - Normal. IMPRESSION Mild obstructive airways disease with significant bronchodilator response. This is associated with mild hyperinflation and air trapping and mild diffusion defect. Clinical correlation recommended. Tori Marcum M.D. CAMERON/neptali T - 03/27/2018
== END 2018-03-25 13:13 ==
PROVIDERS: PCP Family Medicine; Visit Provider Family Medicine
DX: R06.02 Shortness of breath (principal)
CPT/HCPCS: 94060; 94150; 94726; 94729

== ENCOUNTER 2018-04-10 08:00 | Outpatient (RCR) | payer BC, SELFPAY | END 2018-04-11 23:59 | disposition home or self-care (01) | LOC: CR 08:00 | PROVIDERS: PCP Family Medicine; Visit Provider Family Medicine | DX: I25.2 Old myocardial infarction (principal); I25.10 Atherosclerotic heart disease of native coronary artery without angina pectoris; Z51.89 Encounter for other specified aftercare | CPT/HCPCS: S9472 ==

== ENCOUNTER 2018-05-08 08:00 | Outpatient (RCR) | payer BC, SELFPAY | END 2018-05-09 23:59 | disposition home or self-care (01) | LOC: CR 08:00 | PROVIDERS: PCP Family Medicine; Visit Provider Family Medicine | DX: I25.2 Old myocardial infarction (principal); I25.10 Atherosclerotic heart disease of native coronary artery without angina pectoris; Z51.89 Encounter for other specified aftercare | CPT/HCPCS: S9472 ==

== ENCOUNTER 2018-05-27 11:40 | Outpatient (RCR) | payer BC, SELFPAY | END 2018-06-09 23:59 | disposition home or self-care (01) | LOC: CR 11:40 | PROVIDERS: PCP Family Medicine; Visit Provider Family Medicine | DX: I25.2 Old myocardial infarction (principal); I25.10 Atherosclerotic heart disease of native coronary artery without angina pectoris; Z51.89 Encounter for other specified aftercare | CPT/HCPCS: S9472 ==

== ENCOUNTER → 2018-10-24 11:15 | Outpatient (BNVA) | payer MEDICARE, OTHER, SELFPAY | PROVIDERS: PCP Family Medicine; Visit Provider Internal Medicine Cardiovascular Disease | DX: I25.10 Atherosclerotic heart disease of native coronary artery without angina pectoris (principal); I50.32 Chronic diastolic (congestive) heart failure | CPT/HCPCS: 99214 ==

== ENCOUNTER 2019-05-01 11:21 | Outpatient (CLI) | payer MEDICARE, OTHER, SELFPAY ==
[2019-05-01 12:57] LABS: HCT 44.2 % (40.0-50.0); Mean Corp. HGB Concentration 33.9 g/dL (32.0-36.0); Mean Corpuscular Volume 91.3 fL (80-95); Platelet Count 286 x1000/uL (130-400); RBC 4.84 m/cumm (4.50-6.00); RBC Distribution Width 12.7 % (11.8-14.1)
[2019-05-01 13:28] LABS: ALT 29 U/L (16-63); AST 20 U/L (15-37); Alkaline Phosphatase 101 U/L (46-116); Anion Gap 10.5 mmol/L (3-11); BUN 13 mg/dL (7-18); Bilirubin, Total 0.4 mg/dL (0.2-1.0); CO2 27.5 mmol/L (21.0-32.0); CREATININE 1.07 mg/dL (0.70-1.30); Calcium 8.8 mg/dL (8.5-10.1); Calculated LDL 71 mg/dL (<100); Chloride 102 mmol/L (98-107); Cholesterol 146 mg/dL (<200); Glucose 91 mg/dL (74-106); HDL Cholesterol 53 mg/dL (40-60); Potassium 4.3 mmol/L (3.5-5.1); Sodium 140 mmol/L (136-145); Triglyceride 111 mg/dL (<150)
[2019-05-02 10:02] LABS: PSA, Diagnostic 0.6 ng/mL (0.0-6.5)
== END 2019-05-01 11:41 ==
PROVIDERS: PCP Family Medicine; Visit Provider Family Medicine
DX: I50.32 Chronic diastolic (congestive) heart failure (principal); R03.0 Elevated blood-pressure reading, without diagnosis of hypertension; N40.0 Benign prostatic hyperplasia without lower urinary tract symptoms; Z95.1 Presence of aortocoronary bypass graft
CPT/HCPCS: 36415; 80053; 80061; 85027; 84153

== ENCOUNTER 2019-05-05 07:21 | Outpatient (CLI) | payer MEDICARE, OTHER, SELFPAY ==
--- NOTE | 2019-05-05 08:30 | DI.RAD_ITS ---
EXAM: XR CHEST 2V PA LATERAL CLINICAL HISTORY: weight loss in heavy smoker,R63.4,F17.200 COMPARISON: CHEST 2 VIEWS PA,LAT from 03/11/2013 XR CHEST 2V PA LATERAL from 03/11/2018 FINDINGS: Heart is not enlarged. There are multiple mediastinal vascular clips consistent with prior CABG surg kristi. Lungs are predominantly clear, no pleural effusion seen. There is question of interval increase in radiodensity noted in the left infrahilar region in compari son with prior chest films of February 2018 and February 2013. Although no mass or discrete consolid ation is identified, the possibility of developing mass or consolidation is not excluded. Given the patient's history of weight loss and smoking, additional evaluation with chest CT is suggested to lexi luate the possibility of occult mass or consolidation.
== END 2019-05-05 07:41 ==
PROVIDERS: PCP Family Medicine; Visit Provider Family Medicine
DX: F17.210 Nicotine dependence, cigarettes, uncomplicated (principal); R63.4 Abnormal weight loss; R91.8 Other nonspecific abnormal finding of lung field
CPT/HCPCS: 71046

== ENCOUNTER 2019-05-19 00:50 | Outpatient (CLI) | payer MEDICARE, OTHER, SELFPAY ==
--- NOTE | 2019-05-19 14:14 | DI.CT_ITS ---
EXAM: CT CHEST W CLINICAL HISTORY: ABNORMAL CHEST XRAY AND WEIGHT LOSS/SMOKER TECHNIQUE: Imaging Protocol: Axial computed tomography images with coronal and sagittal reformatted images were created and reviewed CONTRAST MATERIAL: Intravenous: Omnipaque 350 Contrast volume:70 mL contrast route:IV - COMPARISON: XR CHEST 2V PA LATERAL from 05/05/2019 FINDINGS: Tracheobronchial tree: Patent where visualized. Mediastinum and Gladys: No dominant adenopathy or fluid collection. Pulmonary parenchyma: Atelectasis or scarring is seen in the lung bases. Tyjk-cf-pocvboqi emphysemat ous changes are present. There is a 0.9 cm pulmonary nodule in the inferior aspect of the right uppe r lobe (series 6, image 343). There is a 3 mm pulmonary nodule in the lateral aspect of the right up per lobe (series 6, image 317). Pleura: No effusion or pneumothorax. Heart: The heart is not dilated. Marked coronary artery calcification is noted. No pericardial effus ion. Aorta: Thoracic aorta non-dilated. Upper abdomen: Unremarkable. Lymph nodes: Within normal limits. Bones: Degenerative changes. Sternal wires are in place. IMPRESSION: 1. No left pulmonary mass to correspond to the chest x-ray finding. 2. Qxxy-eh-bmtkppzm emphysema. 3. Pulmonary nodules in the right lung. A 3-month low-dose CT scan of the chest is recommended for f urther evaluation given the patient's history of smoking. Alternatively, a PET/CT scan may be obtain ed. DATA REPOSITORY: All CT scans at this facility are submitted to the National Radiology Data Registry (NRDR) Dose Index Registry (DIR) with the [employer] (ACR). RADIATION OPTIMIZATION: All CT scans at this facility use at least one of these dose optimization te chniques: automated exposure control; mA and/or kV adjustment per patient size (includes targeted exa ms where dose is matched to clinical indication); or iterative reconstruction.
[2019-05-19] MEDS: Omnipaque 350 MG/ML 100 ML BTL IV (14:58)
== END 2019-05-19 01:10 ==
PROVIDERS: PCP Family Medicine; Visit Provider Family Medicine
DX: R63.4 Abnormal weight loss (principal); J43.9 Emphysema, unspecified; R93.9 Diagnostic imaging inconclusive due to excess body fat of patient; R91.8 Other nonspecific abnormal finding of lung field
CPT/HCPCS: 71260; J3490

== ENCOUNTER 2019-08-20 00:56 | Outpatient (CLI) | payer MEDICARE, OTHER, SELFPAY ==
--- NOTE | 2019-08-20 14:13 | DI.CT_ITS ---
EXAM: CT CHEST WO CLINICAL HISTORY: see CT Scan nodule re-evaluation, LUNG NODULE SEEN ON IMAGING STUDY,SOLID NODULE, R91.1 TECHNIQUE: Imaging protocol: Axial computed tomography images were obtained and coronal and sagittal reformatted images were created and reviewed. COMPARISON: CT CT CHEST W from 05/19/2019 FINDINGS: Tracheobronchial tree: Patent where visualized. Mediastinum and Gladys: No dominant adenopathy or fluid collection. Pulmonary parenchyma: Centrilobular and paraseptal emphysematous changes are seen in the lungs. Ther e has been no change in size of the 9 mm nodule in the inferior aspect of the right upper lobe. Ther e has been no significant change of the 3 mm right upper lobe nodule laterally. No new pulmonary nod ules are present. No consolidating infiltrates are seen. There is bilateral basilar atelectasis or scarring. Pleura: No effusion or pneumothorax. Heart: The heart is not dilated. Coronary artery calcifications and stents are present. No significa nt pericardial effusion. Aorta: Thoracic aorta non-dilated. Atherosclerosis. Upper abdomen: Unremarkable. Lymph nodes: Within normal limits. Bones:Old healed left rib fractures are present. Degenerative changes are seen in the spine. IMPRESSION: Stable pulmonary nodules. Lung rads category 4A. Recommend 3 month low-dose CT scan for high risk patients. RADIATION DOSE DELIVERED: 523.37mGy.cm Total DLP 523.37mGy.cm Total DLP DATA REPOSITORY: All CT scans at this facility are submitted to the National Radiology Data Registry (NRDR) Dose Index Registry (DIR) with the [employer] (ACR). RADIATION OPTIMIZATION: All CT scans at this facility use at least one of these dose optimization te chniques: automated exposure control; mA and/or kV adjustment per patient size (includes targeted exa ms where dose is matched to clinical indication); or iterative reconstruction.
== END 2019-08-20 01:16 ==
PROVIDERS: PCP Family Medicine; Visit Provider Family Medicine
DX: R91.1 Solitary pulmonary nodule (principal); J43.8 Other emphysema
CPT/HCPCS: 71250

== ENCOUNTER → 2019-11-25 13:14 | Outpatient (BNVA) | payer MEDICARE, OTHER, SELFPAY | PROVIDERS: PCP Family Medicine; Referring Provider Family Medicine; Visit Provider Internal Medicine Cardiovascular Disease | DX: I50.32 Chronic diastolic (congestive) heart failure (principal); I25.10 Atherosclerotic heart disease of native coronary artery without angina pectoris; Z95.1 Presence of aortocoronary bypass graft | CPT/HCPCS: 99204; 99215 ==

== ENCOUNTER 2020-08-13 04:08 | Outpatient (CLI) | payer MEDICARE, OTHER, SELFPAY ==
--- NOTE | 2020-08-13 09:00 | DI.CT_ITS ---
Exam(s) CT CHEST WO EXAM: CT CHEST WO CLINICAL HISTORY: INCIDENTAL LUNG NODULE,R91.1. TECHNIQUE: Imaging protocol: Axial computed tomography images were obtained and coronal and sagittal reformatted images were created and reviewed. COMPARISON: CT CT CHEST W from 05/19/[address] CHEST W from 05/19/[address] CHEST WO from 08/20/2019 FINDINGS: Tracheobronchial tree: Patent where visualized. Pulmonary parenchyma: No focal consolidation. Scarring or atelectasis in the lung bases. Centrilobu lar and paraseptal emphysematous changes are present. There is a stable 3 mm nodule in the anterolat eral aspect of the right upper lobe. The 9 mm nodular scarring in the posterior aspect of the right upper lobe is stable. No new pulmonary nodules. Mediastinum and Gladys: No dominant adenopathy or fluid collection. Pleura: No effusion or pneumothorax. Heart: The heart is not dilated. Dense coronary artery calcification. No pericardial effusion. Aorta: Thoracic aorta non-dilated. Atherosclerosis. Upper abdomen: There is a stable hypodensity in the posterior segment of the right lobe of the liver . Lymph nodes: Within normal limits. Soft tissues: Unremarkable. Bones:Sternal wires are in place. Degenerative changes are seen in the spine. IMPRESSION: Stable appearance of the chest. Lung RADS Cat 3 - Probably Benign: Probably benign finding(s) - short term follow-up suggested; inclu de nodules with a low likelihood of becoming a clinically active cancer. RADIATION DOSE DELIVERED: 554.77mGy.cm Total DLP 554.77mGy.cm Total DLP DATA REPOSITORY: All CT scans at this facility are submitted to the National Radiology Data Registry (NRDR) Dose Index Registry (DIR) with the [employer] (ACR). RADIATION OPTIMIZATION: All CT scans at this facility use at least one of these dose optimization te chniques: automated exposure control; mA and/or kV adjustment per patient size (includes targeted exa ms where dose is matched to clinical indication); or iterative reconstruction.
== END 2020-08-13 04:28 ==
PROVIDERS: PCP Family Medicine; Visit Provider Family Medicine
DX: R91.1 Solitary pulmonary nodule (principal); J43.2 Centrilobular emphysema
CPT/HCPCS: 71250

== ENCOUNTER 2020-12-02 01:44 | Outpatient (CLI) | payer MEDICARE, OTHER, SELFPAY ==
[2020-12-02 08:48] LABS: ALT 27 U/L (16-63); AST 22 U/L (15-37); Albumin 3.9 g/dL (3.4-5.0); Alkaline Phosphatase 99 U/L (46-116); Anion Gap 6.2 mmol/L (3-11); BUN 17 mg/dL (7-18); Bilirubin, Total 0.4 mg/dL (0.2-1.0); CO2 29.8 mmol/L (21.0-32.0); CREATININE 1.2 mg/dL (0.70-1.30); Calcium 9.5 mg/dL (8.5-10.1); Calculated LDL 163 mg/dL (<100); Chloride 103 mmol/L (98-107); Cholesterol 257 mg/dL (<200); Estimated GFR 59.18 (mL/min/1.73m2); Glucose 103 mg/dL (74-106); HDL Cholesterol 57 mg/dL (40-60); Potassium 4.7 mmol/L (3.5-5.1); Sodium 139 mmol/L (136-145); Total Protein 7.3 g/dL (6.4-8.2); Triglyceride 188 mg/dL (<150)
== END 2020-12-02 01:45 | disposition home or self-care (01) ==
LOC: LBO 01:45
PROVIDERS: PCP Family Medicine; Visit Provider Family Medicine
DX: I50.32 Chronic diastolic (congestive) heart failure (principal); R03.0 Elevated blood-pressure reading, without diagnosis of hypertension
CPT/HCPCS: 36415; 80053; 80061

== ENCOUNTER 2021-06-21 19:03 | Outpatient (CLI) | payer MEDICARE, SELFPAY ==
[2021-06-21 13:01] LABS: HCT 43.6 % (40.0-50.0); HGB 14.5 g/dL (13.5-17.5); MCH 29.6 pg (27.0-33.0); MCHC 33.3 % (32.0-36.0); MPV 9.7 fL (8.0-11.0); Platelet Count 404 10^3/uL (130-400); RDW 12.4 % (11.8-14.1); RDW-SD 40.7 fL
[2021-06-21 13:24] LABS: C-Reactive Protein 1.28 mg/dL (0.0-0.3); Creatine Kinase 129 U/L (39-308)
[2021-06-21 14:11] LABS: ALT 39 U/L (16-63); AST 19 U/L (15-37); Albumin 3.6 g/dL (3.4-5.0); Alkaline Phosphatase 191 U/L (46-116); Anion Gap 11.2 mmol/L (3-11); BUN 17 mg/dL (7-18); Bilirubin, Total 0.3 mg/dL (0.2-1.0); CO2 27.8 mmol/L (21.0-32.0); CREATININE 1.1 mg/dL (0.70-1.30); Calculated LDL 62 mg/dL (<100); Chloride 99 mmol/L (98-107); Cholesterol 134 mg/dL (<200); Glucose 152 mg/dL (74-106); HDL Cholesterol 44 mg/dL (40-60); Potassium 3.8 mmol/L (3.5-5.1); Sodium 138 mmol/L (136-145); TSH (W/Ref FT4) 0.98 uIU/mL (0.36-3.74); Total Protein 7.9 g/dL (6.4-8.2); Triglyceride 142 mg/dL (<150); Vitamin B12 471 pg/mL (193-986)
== END 2021-06-21 19:04 | disposition home or self-care (01) ==
LOC: LBO 19:03
PROVIDERS: PCP Family Medicine; Visit Provider Family Medicine
DX: R20.8 Other disturbances of skin sensation; R29.898 Other symptoms and signs involving the musculoskeletal system; I10 Essential (primary) hypertension; I25.10 Atherosclerotic heart disease of native coronary artery without angina pectoris
CPT/HCPCS: 36415; 80053; 80061; 82550; 85027; 82607; 83735; 84443; 86140

== ENCOUNTER → 2021-06-23 13:30 | Outpatient (BNVA) | payer MEDICARE, SELFPAY | PROVIDERS: PCP Family Medicine; Referring Provider Family Medicine; Visit Provider Psychiatry & Neurology Neurology | DX: R29.898 Other symptoms and signs involving the musculoskeletal system (principal); M54.50 Low back pain, unspecified | CPT/HCPCS: 95885; 95909; 99214 ==

== ENCOUNTER 2021-06-24 00:04 | Outpatient (CLI) | payer MEDICARE, SELFPAY ==
--- NOTE | 2021-06-24 07:30 | DI.MRI_ITS ---
Exam(s) MR LUMBAR SPINE WO EXAM: MR LUMBAR SPINE WO CLINICAL HISTORY: severe r. leg weakness,?cause, r/o nerve impingment,r29.899. TECHNIQUE: Multiplanar multisequence MRI of the Lumbar spine was performed. COMPARISON: No exams were available for comparison FINDINGS: Bones: The last intervertebral disc space is designated the L5/S1 level for the numbering purpose of this examination. The vertebral body heights are well maintained. There is mild straightening of th e normal lumbar lordosis. Endplate degenerative signal changes are present. Cord: The conus tip ends at the T12 level. It is of normal size and signal intensity. T12-L1: No disc herniations or bulges are present. No central spinal canal or neural foraminal stenos is. L1-2: There is a mild right paracentral disc herniation with extension into the right neural foramen. It causes mild right neural foraminal stenosis. No significant central spinal canal or left neural foraminal stenosis is present. L2-3: There is a diffuse disc bulge. No significant central spinal canal stenosis is seen. No right neural foraminal stenosis is present. There is mild left neural foraminal stenosis. L3-4: There is a left paracentral disc herniation with extrusion posterior to the L4 vertebral body. It causes left lateral recess stenosis compressing the left L4 nerve root. No significant central s emily canal stenosis is seen. There is mild left neural foraminal stenosis. No significant right ne ural foraminal stenosis is present. L4-5: There is a diffuse disc bulge. Hypertrophic changes of the facets are seen. There is mild lori rowing of the central spinal canal. Mild bilateral neural foraminal stenosis is present. L5-S1: There is a small central disc herniation. Mild degenerative changes of the facets are seen. No significant central spinal canal stenosis is present. There is mild right neural foraminal stenos is. No significant left neural foraminal stenosis. Soft tissues: The visualized SI joints and sacrum are well maintained. The paraspinal soft tissues ar e unremarkable. Visualized abdominal organs: Unremarkable. IMPRESSION: 1. Multilevel degenerative changes in the lumbar spine resulting in central spinal canal and neural f oraminal stenosis. 2. Left paracentral disc herniation at L3-L4 with extrusion posterior to the L4 vertebral body. It c auses left lateral recess stenosis and compresses the left L4 nerve root. DATA REPOSITORY:
== END 2021-06-24 00:24 ==
PROVIDERS: PCP Family Medicine; Visit Provider Family Medicine
DX: R29.898 Other symptoms and signs involving the musculoskeletal system (principal); M51.27 Other intervertebral disc displacement, lumbosacral region; M99.53 Intervertebral disc stenosis of neural canal of lumbar region; M51.17 Intervertebral disc disorders with radiculopathy, lumbosacral region
CPT/HCPCS: 72148

== ENCOUNTER 2021-06-28 00:41 | Outpatient (CLI) | payer MEDICARE, SELFPAY ==
--- NOTE | 2021-06-28 07:45 | DI.MRI_ITS ---
Exam(s) MR BRAIN WO/W EXAM: MR BRAIN WO/W CLINICAL HISTORY: 3 week advancing severe right seided weakness TECHNIQUE: Multiplanar multisequence MRI of the brain was performed. Both noninfused and contrast i nfused sequences were performed. IV Contrast injected was 16 cc Dotarem. COMPARISON: CT CT CHEST WO from 08/20/[address] CHEST WO from 08/13/2020 MR MR CERVICAL SPINE WO from 06/28/2021 FINDINGS: CEREBRAL PARENCHYMA: There are multiple ring-enhancing lesions in the brain. There are 2 prominent r ing-enhancing lesions in the left hemisphere both in the frontal and parietal lobes, both measuring a pproximately 2.5 x 2.5 cm with abundant surrounding edema and consistent with metastatic lesions. Th ere is approximately 3 millimeter shift of midline structures towards the right side. A slightly sma ller similar lesion is seen in the high right parietal region measuring 1.5 x 1.5 cm, also with small amount of surrounding edema and just below this is a smaller 4 millimeter lesion, also enhancing in the right parietal region. There are no ring enhancing lesions in the cerebellar hemisphere nor with in the matthew, midbrain, and thalami. There is an area of arachnoid cyst in the right middle cranial f jose incidentally noted, anterior to the right temporal lobe. With respect to the metastatic appeari ng lesions above, these exhibit some evidence of blood products on susceptibility weighted imaging. PITUITARY GLAND: No mass nor parasellar abnormality. No obvious abnormality in the cavernous sinuses. FLOW VOIDS: The expected flow void are noted. No evidence of obvious aneurysm nor obvious vascular ma lformation. PARANASAL SINUSES: The visualized paranasal sinuses appear unremarkable. ORBITS: No obvious abnormal findings. IMPRESSION: There are multiple metastatic appearing enhancing lesions in both sides of in the brain, most promine nt on the left side as described above in the frontal and parietal lobes and there is abundant surrou nding white matter edema and mass effect upon the lateral ventricle and some shift of midline structu res towards the opposite-right side, approximately 3-4 millimeters. These lesions also exhibit some focal blooming signal on susceptibility imaging consistent with eleme nt of prior intra lesion hemorrhage. See separate MRI cervical spine report Report stat to physician's office. DATA REPOSITORY:
--- NOTE | 2021-06-28 07:45 | DI.MRI_ITS ---
Exam(s) MR CERVICAL SPINE WO EXAM: MR CERVICAL SPINE WO CLINICAL HISTORY: eval cervical cause/myelopathy, rt sided weakness, worsening, R29.898 TECHNIQUE: Multiplanar multisequence MRI of the cervical spine was performed without intravenous con trast. COMPARISON: MR MR BRAIN WO/W from 06/28/2021 FINDINGS: CERVICOMEDULLARY JUNCTION: Intact with no evidence of cerebellar tonsillar ectopia. No obvious abnor mality of the odontoid process. No evidence of Chiari 1 malformation. CERVICAL SPINAL CORD: There is no abnormal signal in the cervical spinal cord and no evidence of foca l cord atrophy nor focal cord swelling. OSSEOUS:There are no cervical fractures evident. No significant osseous lesions in the cervical vert ebrae. INDIVIDUAL LEVELS: C2-3: Chronic disc space narrowing but no disc herniation nor central spinal canal stenosis. No sign ificant foraminal stenosis. No significant facet arthropathy. C3-4: Mild disc height loss. Mild annular bulging without a dominant disc herniation and central can al dimensions are lower normal. Also no significant foraminal stenosis. Mild facet joint degenerati ve changes. C4-5: Moderate-advanced disc space narrowing. Anterior osteophytes. Annular bulging without a domina nt disc herniation. Central canal dimensions are lower normal. No significant foraminal stenosis. Mild facet joint degenerative changes. C5-6: Moderate-advanced chronic disc space narrowing. Mild annular bulging. Central canal dimension s lower normal. Moderate facet arthropathy. There is bilateral foraminal stenosis at this level, mo re prominent on the right side. C6-7: Chronic advanced disc space narrowing. Annular bulging. Mild central canal stenosis. Mild bi lateral foraminal stenosis. Moderate facet arthropathy. C7-T1: Relatively preserved disc height although there is an element of anterolisthesis of C7 upon T1 due to facet arthropathy. Central canal dimensions are lower normal. Advanced facet arthropathy. Bilateral mild-moderate foraminal stenosis related to the listhesis.. T1-T2: Normal disc height and signal. No disc herniation or central canal stenosis. No foraminal st enosis. IMPRESSION: 1. Multilevel chronic degenerative disc disease changes. No dominant disc herniation nor prominent c entral canal stenosis. There is an element of bilateral foraminal stenosis at C5-6 and C6-7 levels a s well as C7-T1. 2. However, the main findings in this patient today are in the brain where there are ominous ring-enh ancing lesions with prominent surrounding white matter edema and mild shift of midline structures tow ards the right side. Please see that separate brain MRI report. Report stat sent to physician office DATA REPOSITORY:
[2021-06-28] MEDS: Gadoterate meglumine 20 ML VIAL 16 ML IVP (13:20)
== END 2021-06-28 01:01 ==
PROVIDERS: PCP Family Medicine; Visit Provider Family Medicine
DX: R29.898 Other symptoms and signs involving the musculoskeletal system (principal); M50.31 Other cervical disc degeneration, high cervical region; M50.322 Other cervical disc degeneration at C5-C6 level; M50.323 Other cervical disc degeneration at C6-C7 level; M50.23 Other cervical disc displacement, cervicothoracic region; G93.89 Other specified disorders of brain; C71.1 Malignant neoplasm of frontal lobe; C71.3 Malignant neoplasm of parietal lobe
CPT/HCPCS: 70553; 72141

== ENCOUNTER 2021-09-07 10:55 | Observation (INO) | payer MEDICARE, SELFPAY ==
--- NOTE | 2021-09-07 10:45 | RT.EKG_ITS ---
APPROVED REPORT Exam: Resting ECG Reason for Exam: Dyspnea Patient Location: E HR:82 bpm ECG Measurements Heart Rate 82 AXIS NV 162 P 49 QRSd 96 QRS 172 QT 379 T 53 QTc 443 Conclusion Sinus rhythm...normal P axis, V-rate 60- 99 Right axis deviation...QRS axis ( 91,269) Low voltage, extremity leads...all extremity leads <0.5mV
--- NOTE | 2021-09-07 10:45 | DI.RAD_ITS ---
Exam(s) XR PORTABLE CHEST AP EXAM: XR PORTABLE CHEST AP CLINICAL HISTORY: SOB,metastatic cancer TECHNIQUE: COMPARISON: CR XR CHEST 2V PA LATERAL from 05/05/2019 FINDINGS: The heart is not enlarged. Multiple mediastinal vascular clips noted. Lungs are grossly clear and w ell expanded with some changes of scarring. No pleural effusion seen on this frontal film. IMPRESSION: No evidence of acute change, no gross interval change from 05/05/2019. RADIATION DOSE DELIVERED: Total DLP
[2021-09-07 10:58] VITALS: BP 121/74; PULSE 81; RESP 12; TEMP 36.2; O2SAT 92
--- NOTE | 2021-09-07 11:03 | ED.GENADUL_ITS ---
Discharge Plan Disposition Patient Disposition: HOME Condition: Stable Discharge Details Chief Complaint: GenMedical Clinical Impression: Pneumonia Primary Care Provider: Myriam Riggins ED Provider: Teja Chery Home Meds and New Rx's Prescriptions: No Action aspirin 81 mg tablet,delayed release (DR/EC) 81 mg PO DAILY Qty: 90 0RF zqxzolhjazrk-zrxctgny-qmgsag tablet 1 tab PO DAILY psyllium husk [Metamucil] 0.52 gram capsule 0.52 g PO BID atorvastatin 80 mg tablet 80 mg PO QPM Qty: 90 5RF furosemide 20 mg tablet 20 mg PO DAILY Qty: 90 4RF metoprolol succinate 25 mg tablet extended release 24 hr 37.5 mg PO .nightly Qty: 135 4RF acetaminophen-codeine 300 mg-30 mg /12.5 mL solution 12.5 ml PO TID PRN (Reason: cough) Qty: 200 2RF melatonin 3 mg Tablet 3 mg PO HS PRN divalproex 500 mg tablet,delayed release (DR/EC) 500 mg PO BID Label Comments: TAKE 1 TABLET BY MOUTH EVERY 12 HOURS dexamethasone 2 mg tablet 2 mg PO 3XD Label Comments: TAKE 1 TABLET BY MOUTH EVERY 8 HOURS pantoprazole 40 mg tablet,delayed release (DR/EC) 40 mg PO DAILY Label Comments: TAKE 1 TABLET BY MOUTH BEFORE BREAKFAST memantine [Namenda] 10 mg Tablet 10 mg PO BID metoprolol tartrate 25 mg tablet 25 mg PO BID Label Comments: TAKE 1/2 TABLET BY MOUTH EVERY 12 HOURS sodium chloride 1,000 mg tablet,soluble 1,500 tab PO BID Label Comments: TAKE 1 TABLET BY MOUTH EVERY 8 HOURS Medical Decision Making 75-year-old male with metastatic lung cancer presents from home via EMS. He has had approximately 3 days of progressive cough with congestion and noted to be hypoxic upon EMS arrival. He requires 2 L for normal oxygenation and arrives speaking in full sentences with a 90 to 92% oxygenation on 2 L nasal cannula, the remainder of his vital signs are reassuring. Lung exam reveals diminished breath sounds and rhonchi on the right side. Differential diagnosis includes pneumonia, PE, progression of carcinoma. The patient recently has had a rapidly progressive lung cancer with numerous intracranial lesions. He was admitted to [facility] for radiation therapy and debulking craniotomy. He was subsequently admitted to rehabilitation facility and was discharged home last . Family reports that 16 days ago he was diagnosed with a dry cough and tested positive for COVID. He was treated for a bronchitis with 5 days of antibiotics prior to being discharged to home.. Patient placed on a monitored bed, IV access was established and laboratories obtained. Patient's labs reveal a white blood cell count of 8, hematocrit 30 with a hemoglobin of 10, platelets 226. Sodium 135, potassium 3.8, chloride 100, bicarb 26, BUN 20, creatinine 0.7, D-dimer elevated at 2309, initial troponin negative. Note of albumin 1.8. Chest x-ray no evidence of acute change, see formal report. Due to elevated D-dimer and presentation with underlying metastatic carcinoma, patient was referred for CT scan of the chest. This reveals adenopathy, mild infiltrate, primarily in the right upper lung field, no evidence of PE, please see the formal report. Due to the patient's oxygen dependence, infiltrate, positive COVID test, I do feel he merits admission to the hospital. I spoke with his family including his daughter who has the patient's power of insurance defense attorney. He wishes to be DNR/DNI and is considering pursuing hospice as his primary wishes right now or to be at home with his dog max and to in his home. Finally, patient's and family note that he is scheduled for an outpatient MRI to stage his recurrent brain mets, this may be of further discussion with hospice and his inpatient care team Lab Data Lab results reviewed: Yes I reviewed the patient's lab results. Labs: Laboratory Results - last 24 hr 09/07/21 09/07/21 09/07/21 11:05 11:05 11:05 WBC 8.32 RBC 3.39 L Hgb 10.2 L Hct 30.5 L MCV 90 MCH 30.1 MCHC 33.4 RDW 18.1 H Plt Count 226 MPV 8.9 Immature Gran % 4.2 Neutrophils % 78.5 Lymphocytes % 10.9 Monocytes % 5.9 Eosinophils % 0.1 Basophils % 0.4 Nucleated RBC % 0.0 Absolute Neutrophils 6.53 Absolute Lymphocytes 0.91 L Absolute Monocytes 0.49 Absolute Eosinophils 0.01 Absolute Basophils 0.03 D-Dimer 2309 H Sodium 135 L Potassium 3.8 Chloride 100 Carbon Dioxide 26.7 Anion Gap 8.3 BUN 20 H Creatinine 0.7 Estimated GFR/1.73 m2 >= 60.00 Glucose 102 Calcium 8.0 L Magnesium 2.0 Total Bilirubin 0.5 AST 25 ALT 38 Alkaline Phosphatase 70 Troponin I < 50 NT-Pro-B Natriuret Pep 490 H Total Protein 5.8 L Albumin 1.8 L COVID-19 Source SARS-CoV-2 (PCR) Influenza Type A (PCR) Influenza Type B (PCR) RSV (PCR) 09/07/21 11:17 WBC RBC Hgb Hct MCV MCH MCHC RDW Plt Count MPV Immature Gran % Neutrophils % Lymphocytes % Monocytes % Eosinophils % Basophils % Nucleated RBC % Absolute Neutrophils Absolute Lymphocytes Absolute Monocytes Absolute Eosinophils Absolute Basophils D-Dimer Sodium Potassium Chloride Carbon Dioxide Anion Gap BUN Creatinine Estimated GFR/1.73 m2 Glucose Calcium Magnesium Total Bilirubin AST ALT Alkaline Phosphatase Troponin I NT-Pro-B Natriuret Pep Total Protein Albumin COVID-19 Source Nasopharynx SARS-CoV-2 (PCR) Positive A Influenza Type A (PCR) Negative Influenza Type B (PCR) Negative RSV (PCR) Negative HPI General Mode of arrival: EMS . Date/Time Provider Initiated Documentation: 09/07/21 11:12 . Limitations to Documentation: no limitations . Information obtained by: patient and EMS . History of Present Illness 75 year old M presents to the emergency department with the chief complaint of Weakness and cough, described as moderate and similar to prior episodes, Quality is described as dull and constant, and is localized to the chest. Patient reports no radiation. Patient started experiencing this day(s) and it has been intermittent. No relieving factors improve symptom(s), No exacerbating factors reported . Patient notes cough and weakness; denies fever/chills and shortness of breath. Patient did receive the following treatments prior to arrival, other (States he had 5 days of antibiotics last week) Related Data Home Medications Medication Instructions Recorded Confirmed ucjzohqdjhea-uynadgwm-rvwjll tablet 1 tab PO DAILY 04/29/18 06/27/21 aspirin 81 mg tablet,delayed 81 mg PO DAILY #90 tabs 11/25/19 06/27/21 release psyllium husk 0.52 gram capsule 0.52 g PO BID 08/10/20 06/27/21 (Metamucil) atorvastatin 80 mg tablet 80 mg PO QPM #90 tabs 02/27/21 09/07/21 furosemide 20 mg tablet 20 mg PO DAILY #90 tabs 02/27/21 06/27/21 metoprolol succinate 25 mg 37.5 mg PO .nightly #135 tabs 02/27/21 06/27/21 tablet,extended release 24 hr acetaminophen 300 mg-codeine 30 12.5 ml PO TID PRN cough #200 mL 09/06/21 mg/12.5 mL (12.5 mL) oral solution dexamethasone 2 mg tablet 2 mg PO 3XD 09/07/21 09/07/21 divalproex 500 mg tablet,delayed 500 mg PO BID 09/07/21 09/07/21 release melatonin 3 mg tablet 3 mg PO HS PRN 09/07/21 09/07/21 memantine 10 mg tablet (Namenda) 10 mg PO BID 09/07/21 09/07/21 metoprolol tartrate 25 mg tablet 25 mg PO BID 09/07/21 09/07/21 pantoprazole 40 mg tablet,delayed 40 mg PO DAILY 09/07/21 09/07/21 release sodium chloride 1,000 mg soluble 1,500 tab PO BID 09/07/21 09/07/21 tablet Previous Rx's Medication Instructions Recorded aspirin 81 mg tablet,delayed 81 mg PO DAILY #90 tabs 11/25/19 release atorvastatin 80 mg tablet 80 mg PO QPM #90 tabs 02/27/21 furosemide 20 mg tablet 20 mg PO DAILY #90 tabs 02/27/21 metoprolol succinate 25 mg 37.5 mg PO .nightly #135 tabs 02/27/21 tablet,extended release 24 hr acetaminophen 300 mg-codeine 30 12.5 ml PO TID PRN cough #200 mL 09/06/21 mg/12.5 mL (12.5 mL) oral solution Allergies Allergy/AdvReac Type Severity Reaction Status Date / Time No Known Allergies Allergy Verified 09/07/21 11:04 General ARI: 3 Review of Systems Narrative: Recent rehab stay. Generalized weakness. Cough with congestion. See HPI. Patient states he had COVID and then tested negative approximately 2 weeks ago. 8 systems were reviewed PFSH All Active Problems (Updated 09/07/21 @ 13:45 by Teja Chery MD) Pneumonia (Acute) Right arm weakness (Acute) Right leg weakness (Acute) Screening for colon cancer (Acute) Hypertension (Chronic) Incidental lung nodule, greater than or equal to 8mm (Acute) Heartburn (Acute) Weight loss (Acute) Diastolic heart failure (Acute) Cholelithiasis without obstruction (Chronic) Annual physical exam (Acute) CHF (congestive heart failure) (Chronic) CAD (coronary artery disease) (Chronic ~12/2017) [place] 2018; quadruple bypass with pneumothorax Weight loss (Chronic 03/16/14) Vitiligo (Chronic) Tobacco use disorder (Chronic) HX of quitting at different times Testicular hypofunction (Chronic) Hearing loss (Chronic) left Gastroesophageal reflux disease with esophagitis (Chronic) Ankle pain (Chronic 10/19/14) Medical History Elevated blood pressure reading (03/16/15) Surgical History Colonoscopy - MAC (~2001) Family History Mother , [place] at age 92. Essential hypertension Heart disease Hyperlipidemia Myocardial infarction Father , 90 Essential hypertension Hyperlipidemia Stroke Social History Smoking/Tobacco Use Status: Former Tobacco Use tobacco type: cigarettes Quit Date: 06/10/21 Pack-years: 54 Tobacco: How many years used: 54 Second Hand Exposure: Yes Smoking risk assessment performed?: Yes Alcohol Intake: current Alcohol Intake frequency: holidays/special occasions only Drug use: Never Substance use type: does not use Household members: none Housing: house Communication Needs: None Do you need help understanding health information?: Never Pets and animals: Yes Pets and animals: dog(s) Sexually active: Yes Do you think of yourself as: straight/heterosexual Current gender identity: male What is your relationship status?: How often do you talk on the phone with friends or family?: three or more times per week How often do you get together with friends or relatives?: three or more times per week How often do you attend muslim or zoroastrianism services?: 1-3 times per year Do you belong to any clubs or organized social groups?: no Panel score (0-1 are the most socially isolated patients): 1 Tiana/Nondenominational: No preference Special tiana needs: No Seatbelt use: sometimes Helmet use: Yes Helmet use: sometimes Drive intox or ride w/intox armor reconnaissance vehicle driver: No Do you feel safe at home: Yes Do you feel safe in your relationship?: Yes Exam Narrative Exam Narrative: GEN: awake, alert, oriented 3. Pleasant, well groomed, interactive. HEAD: Normocephalic, atraumatic ENT: Mucous membranes moist, oropharynx unremarkable, External ear exam unremarkable EYES: PERRL, EOMI NECK: Full ROM, no PARMINDER, no menigismus CHEST/RESP: Nontender, diminished, right base rhonchi CARDIOVASCULAR: Distant, RRR, no murmur, rub goldy. 2+ Rad pulse bilateral ABDOMEN: Soft, nontender, no mass. +Bowel sounds, small areas of ecchymosis on the ventral abdominal wall EXT: Trace edema bilaterally Neuro: Grossly normal neurologic exam, conversant, interactive. Psych: Speech fluent, thoughts congruent, affect normal
[2021-09-07 11:13] LABS: Abs Immature Grans 0.35 10^3/uL (0.0-0.06); Absolute Basophil Count 0.03 10^3/uL (0.0-0.2); Absolute Eosinophil Count 0.01 10^3/uL (0.0-0.7); Absolute Lymphocyte Count 0.91 10^3/uL (1.2-3.4); Absolute Monocyte Count 0.49 10^3/uL (0.1-0.8); Absolute Neutrophil Count 6.53 10^3/uL (1.2-6.7); Basophils % 0.4; Eosinophils % 0.1; HCT 30.5 % (40.0-50.0); HGB 10.2 g/dL (13.5-17.5); Immature Grans % 4.2; Lymphocytes % 10.9; MCH 30.1 pg (27.0-33.0); MCHC 33.4 % (32.0-36.0); MCV 90 fL (80-95); MPV 8.9 fL (8.0-11.0); Monocytes % 5.9; Neutrophils % 78.5; Platelet Count 226 10^3/uL (130-400); RBC 3.39 10^6/uL (4.36-5.78); RDW 18.1 % (11.8-14.1); RDW-SD 57.1 fL; WBC 8.32 10^3/uL (4.4-10.8)
[2021-09-07 11:20] VITALS: RESP 18
[2021-09-07 11:35] LABS: ALT 38 U/L (16-63); AST 25 U/L (15-37); Albumin 1.8 g/dL (3.4-5.0); Alkaline Phosphatase 70 U/L (46-116); Anion Gap 8.3 mmol/L (3-11); BUN 20 mg/dL (7-18); Bilirubin, Total 0.5 mg/dL (0.2-1.0); CO2 26.7 mmol/L (21.0-32.0); CREATININE 0.7 mg/dL (0.70-1.30); Chloride 100 mmol/L (98-107); Glucose 102 mg/dL (74-106); NT-proBNP 490 pg/mL (<300); Potassium 3.8 mmol/L (3.5-5.1); Sodium 135 mmol/L (136-145); Total Protein 5.8 g/dL (6.4-8.2); Troponin I < 50 ng/L (<or=60)
[2021-09-07 11:49] LABS: D-Dimer 2309 ng/mlFEU (<500)
[2021-09-07 12:14] LABS: Influenza A PCR Negative (Negative); Influenza B PCR Negative (Negative); RSV PCR Negative (Negative)
[2021-09-07 12:20] LABS: Source Nasopharynx
[2021-09-07 12:22] LABS: COVID-19 PCR Positive (Negative)
[2021-09-07] MEDS: Omnipaque 350 MG/ML 100 ML BTL IJ (12:35)
--- NOTE | 2021-09-07 12:52 | DI.CT_ITS ---
Exam(s) CT CHEST PE CTA EXAM: CT CHEST PE CTA CLINICAL HISTORY: Lung Ca, Cough, hypoxic, elev DDImer TECHNIQUE: COMPARISON: CT CT CHEST WO from 08/13/2020 FINDINGS: CT examination of the chest was performed utilizing CT angiography protocol with intravenous infusion of 100 cc of Omnipaque 350. Images obtained through the upper abdomen show an apparent new right adrenal nodule since prior exami nation of August 2020, this measures 18 x 28 millimeters in diameter and is suspicious for metastatic d isease in this patient has a history of lung carcinoma. Left adrenal is unremarkable. Visualized po rtions of the kidneys, liver, spleen, and pancreas are unremarkable. There is a right hilar mass with marked central mediastinal adenopathy with bulky pretracheal nodes m easuring up to 4.6 cm in diameter and prominent subcarinal nodes. There also appears to be poorly de fined adenopathy in supraclavicular nodes on the right which are incompletely imaged on this study. There is no evidence of pulmonary embolic disease or other major vascular abnormality. There is enca sement of right pulmonary artery and lobar pulmonary arteries without evidence of obstruction at the right hilar level. Multiple lobar and segmental bronchi on the right are narrowed but not occluded. No gross right pleu ral effusion seen. No left pleural effusion. There are parenchymal changes, predominantly in the right upper lobe, most suggestive lymphangitic ob struction. No suspicious areas of consolidation identified lung. IMPRESSION: No evidence of pulmonary embolic disease in a patient with regional extensive metastasis from lung c arcinoma as described above. RADIATION DOSE DELIVERED: 485.79mGy.cm Total DLP !Error CTDIvol RADIATION OPTIMIZATION: All CT scans at this facility use at least one of these dose optimization te chniques: automated exposure control; mA and/or kV adjustment per patient size (includes targeted exa ms where dose is matched to clinical indication); or iterative reconstruction.
--- NOTE | 2021-09-07 13:00 | RT.EKG_ITS ---
APPROVED REPORT Exam: Resting ECG Reason for Exam: chest pain Patient Location: E HR:81 bpm ECG Measurements Heart Rate 81 AXIS NM 168 P 54 QRSd 94 QRS 181 QT 382 T 49 QTc 445 Conclusion Sinus rhythm...normal P axis, V-rate 60- 99 Low voltage, extremity leads...all extremity leads <0.5mV
[2021-09-07 13:04] VITALS: BP 89/75; PULSE 120; RESP 16; O2SAT 96
[2021-09-07] MEDS: Normal Saline 500 ML IV (13:13)
[2021-09-07] MEDS: PIPERACILLIN/TAZO 3.375 GM in Normal Saline 50 ML IVPB (14:21)
[2021-09-07 14:38] LABS: Lab Add On Test DONE
[2021-09-07 14:59] LABS: Troponin I < 50 ng/L (<or=60)
[2021-09-07 15:35] VITALS: BP 122/70; PULSE 78; RESP 18; TEMP 36.5; O2SAT 92
--- OUTSIDE RECORDS SUMMARY | 2021-09-07 15:35 | XMS_ITS | Encounter Summary ---
:1945 Author Organization [facility] [place] [address] Care Team Providers Name Role Phone Myriam Riggins MD Primary Care Provider Reason for Visit Reason Onset Date Comments Other 08/19/2021 Prework Encounter Details Date Type Department Care Team Description 08/19/2021 Patient Outreach Neurology at [facility] Wally Chow, Other (Prework/) [facility] [place] [address] NEUROLOGY [place], [place] [address] Social History Tobacco Use Types Packs/Day Years Used Date Former Smoker 1 30 Smokeless Tobacco: Former User Q uit: 06/24/2021 Comments: Quit 5 days ago Alcohol Use Standard Drinks/Week Comments Yes 3 (1 standard drink = 0.6 oz pure alcoho l) Nothing recently Alcohol Habits Answer Date Recorded How often do you have a drink containing alcohol? Not asked How many drinks containing alcohol do you have on a Not aske d typical day when you are drinking? How often do you have six or more drinks on one Not asked occasion? Comment: Nothing recently 08/16/2021 Sex Assigned at Date Recorded Not on file documented as of this encounter Plan of Treatment Upcoming Encounters Date Type Specialty Care Team Description 09/13/2021 Hospital Encounter Radiology Curtis Laura MD [facility] ER RADIATION [place] [place], [place] [address] (Wo rk) 10/07/2021 Office Visit Neurology Wally Chow MD [facility] ER NEUROLOGY [place], [place] [address] (Wo rk) documented as of this encounter Visit Diagnoses Not on filedocumented in this encounter Care Teams Track Superintendent Relationship Specialty Start Date End Date Myriam Riggins MD PCP - General Family Medicine 06/28/[address] [place] [address] [address] [place] [address] documented as of this encounter
--- OUTSIDE RECORDS SUMMARY | 2021-09-07 15:35 | XMS_ITS | Encounter Summary ---
:1945 Author Organization [facility] [address] Care Team Providers Name Role Phone Myriam Riggins MD Primary Care Provider Reason for Visit Reason Comments Extremity Weakness Auth/Cert Specialty Diagnoses / Procedures Referred By Contact Refer red To Contact Diagnoses Right sided weakness Procedures EMERGENCY OBSVO TO IPI Referral ID Status Reason Start Date Expiration Date Visits Requ ested Visits Authorized [id number] 1 1 Encounter Details Date Type Department Care Team Description 07/21/2021 - Hospital Encounter 1 [facility] Héctor Levy MD [facility] EMERGENC[place] [address] Right sided weakness (Primary Dx); 08/12/2021 [facility] Flory Polo MD [facility] [place] [address] Secondary malignant neoplasm of brain [facility] Samara Fierro MD [facility] [place] [address] [facility] Presley Guerin MD [facility] [place] [address] [place] [address] [place], [place] [id number] Social History Tobacco Use Types Packs/Day Years Used Date Former Smoker 1 30 Smokeless Tobacco: Former User Q uit: 06/24/2021 Comments: Quit 5 days ago Alcohol Use Standard Drinks/Week Comments Yes 3 (1 standard drink = 0.6 oz pure alcoho l) Not recently Alcohol Habits Answer Date Recorded How often do you have a drink containing alcohol? Not asked How many drinks containing alcohol do you have on a Not aske d typical day when you are drinking? How often do you have six or more drinks on one occasion? No t asked Comment: Not recently 06/29/2021 Sex Assigned at Date Recorded Not on file documented as of this encounter Last Filed Vital Signs Vital Sign Reading Time Taken Comments Blood Pressure 150/79 08/12/2021 11:29 AM EDT Pulse 78 08/12/2021 11:29 AM EDT Temperature 36.5 ??C (97.7 ??F) 08/12/2021 11:29 AM EDT Respiratory Rate 20 08/12/2021 11:29 AM EDT Oxygen Saturation 95% 08/12/2021 11:29 AM EDT Inhaled Oxygen Concentration - - Weight 76.5 kg (168 lb 10.4 oz) 08/12/2021 6:00 AM EDT Height 172.7 cm (5' 8) 07/21/2021 10:39 AM EDT Body Mass Index 25.64 07/21/2021 10:39 AM EDT documented in this encounter Discharge Summaries John Nuemann MD - 08/12/2021 1:51 PM EDT Discharge Summary Patient Name: Ilir Laird Patient Age: 75 y.o. Language: Khmer Race: White Ethnicity: Not nor Admit date: 07/21/2021 Discharge date and time: 08/12/2021 Attending Physician: John Neumann MD Discharge Physician: John Neumann MD PCP: Myriam Riggins MD Code Status: Do NOT Attempt CPR - Inpatient Follow-up Recommendations for Providers: - Fup response to steroids and titrate to PO steroids as able, and if going to be on long-term consider PJP ppx - Continue multi-disciplinary discussions about goals of care with pt and daughters - memantine up-titration, 10mg in the morning and 5mg nightly until August 20 can uptitrate to 10mg BID - fluid restriction of 1.5L daily for SIADH Inpatient Provider Contact Information: For questions regarding this document or issues relating to this hospitalization on the Medical Service, please contact your inpatient physician through the [facility] [employer] . Issues after hours and on weekends will be handled by the Hospitalist staff on-call. Discharge Diagnoses (Hospital Problems) and Secondary Diagnoses (Chronic Problems): Active Hospital Problems Diagnosis ??? Right sided weakness ??? Right hemiplegia Resolved Hospital Problems No resolved problems to display. Active Non-Hospital Problems Diagnosis ??? Hyponatremia ??? Hyperglycemia ??? Non-small cell carcinoma of lung ??? Cigarette nicotine dependence with withdrawal ??? CAD (coronary artery disease), HLD ??? 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 male with NSCLC recently diagnosed in June (admitted here at [facility]) with mets to the brain s/p debulking craniotomy per neurosurgery who is presenting today with acute right hemiplegia. ? HPI: Ilir Laird is a 75y/o M with a PMH significant for CAD s/p 4vCABG around 2019 in [place], [place], tobacco use with a 58 pack/year history who presented to [facility] with progressive right-sided weakness found to have metastatic disease. He was admitted to [facility] in June, where he was found to have primary NSCLC. He underwent debulking craniotomy for brain mets on 06/30 by neurosurgery. He was discharged to rehab in [place] with referrals to oncology, radiation/oncology, neurology. Seizures x3 per neuro note on 07/13; recommended increasing Keppra to 1500mg BID and seeing patient in clinic for neuro evaluation. Patient was released from rehab yesterday and was at home, ambulating relatively well with a walker per patient and his 2 daughters, who were present during my interview. Patient fell asleep onthe couch around 8pm and when he woke up he was unable to move his right side and that his right side was completely numb. Called his daughter who came over and helped him get to the bathroom. She settled him back in, and he fell back asleep for another two hours. Fell off the couch and was found around 4am by one of his daughters. He was brought to [facility] ED. Patient started having uncontrollable twitching and shaking of right arm that was alleviated by 0.5mg IV Ativan x1 within one minute of it being given. Currently ROS completely negative except for inability to move the right side of his body. Denies PINEDA, dizziness, changes to or loss of vision. No weight changes. Able to eat and swallow without difficulty. ?? In ED:CT head as below. MRI brain: interval recurrence in two prior left sided surgical beds with edema, new metastatic lesion left temporal lobe and interval enlargement of 2 posterior frontal metastatic lesions. Neurosurgery consulted as well as rad/onc per sign out. ?? Hospital Course (by problem list): # Metastatic NSCLC # Brain mets - rapidly progressive # Right sided hemiplegia, acute - 2/2 rapidly progressive mets # Cerebral edema secondary to post-operative changes and metastatic disease # Worsening acute seizure activity 2/2 brain mets He was admitted to hospital medicine and evaluated by neurology and neurosurgery and started on IV steroids. Not ideal candidate for surgery given extent of disease and potential morbidity. He was evaluated by radiation oncology and was started on whole brain radiation on 07/22 for 14 sessions. Memantine was started for cognitive benefit given whole brain irradiation. IV steroids were weaned to oral steroids at time of discharge. He was also evaluated by oncology who followed up final path which showed metastatic carcinoma with neuroendocrine features. They plan to discuss systemic therapy as outpatient based on response to steroids and radiation, but felt prognosis was in range of 2-3 months, to more than a year, depending onresponse to therapy. Palliative care consulted as well for assistance with clarification of goals of care and family support. Pt transitioned to DNR/DNI on 07/22 per their discussion with pt and daughters at bedside. He was continued on seizure precautions and initially on Q2H neuro checks which were liberalized on HD#2 due to stability. He was continued on Keppra home dose of 1500mg BID after 1g IV Keppra load in ED, and was also continued on home Depakote 500mg BID as well as Ativan 0.5mg PRN seizures. He underwent COMMUNICATION STUDIES PROFESSOR evaluation and was cleared for a regular diet. ?? # Leukocytosis, chronic - stable: Suspect this is in setting of chronic steroid use. No sign of active infection. #Thrombocytopenis >50% reduction in platelets noted (as low as 91) with unclear etiology. Because he was anticoagulated on Heparin, the patient was evaluated for HIT. This was negative and patient was restarted on Lovenox on 08/06. 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 ?? # CAD with h/o 4v CABG: # HTN: # HLD: He was continued on his beta cassie and statin. Vital Signs at Discharge: BP: 150/79, Heart Rate: 78, Temp: 36.5 ??C (97.7 ??F), Resp: 20, BMI (Calculated): 26.61 Height: 172.7 cm (5' 8) (07/21/21 1039) Weight: 76.5 kg (168 lb 10.4 oz) (08/12/21 0600) Functional and Cognitive Status: Stable, but requiring PT/OT rehab, some memory deficits noted. Important Studies and Lab Data: Labs: Last 3 wbc, hgb, hct plt Recent Labs 08/08/21 0514 08/07/21 0200 08/06/21 0329 WBC 16.5* 16.5* 17.7* HGB 14.0 13.2* 12.8* HCT 40.0* 38.6* 37.6* PLATELET 114* 108* 98* Last 3 Lytes Recent Labs 08/08/21 0514 08/07/21 0200 08/06/21 0329 NA 127* 129* 129* K 4.7 4.8 4.9 CL 94* 95* 99 CO2 25 26 22 BUN 23* 24* 26* CREATININE 0.71* 0.76* 0.74* Last 3 LFTs Recent Labs 07/29/21 0724 07/26/21 0428 07/25/21 1144 07/23/21 0457 07/22/21 0459 AST 17 14 13 13 17 ALT 21 19 20 22 28 ALKPHOS 75 93 84 83 100 BILITOT 0.3 0.4 0.4 0.4 0.3 BILIDIR 0.1 -- -- 0.1 0.1 Last Ca, Mg, Phos Recent Labs 08/08/21 0514 CALCIUM 7.7* Last 3 Coags No results for input(s): PT, INR, PTT in the last 168 hours. Last 3 ProBNP, Trop, CK No results for input(s): CK, TROPONINT, PROBNP in the last 168 hours. Last 3 TFT No results for input(s): TSH in the last 7068 hours. Invalid input(s): T4, FT4 Last 3 Lipids No results for input(s): CHLPL, HDL, LDLCHOL, LDLDIRECT, TRIG in the last 7068 hours. Last 3 HgbA1C Recent Labs 07/02/21 0210 HA1C 5.5 Last CRP, SEDRATENo results for input(s): CRP, SEDRATE in the last 7068 hours. Studies: Results for orders placed or performed during the hospital encounter of 07/21/21 CT Head wo Contrast (Generic) (Exam End: 07/21/2021 11:08 AM) Impression Increased size of hyperdense metastases along both cerebral convexities. Increased left frontoparietal vasogenic edema, sulcal effacement and mass effect on the left lateral ventricle. Similar vasogenic edema surrounding the right frontal convexity lesions. Thank you for letting us participate in the care of this patient. If you are a health care provider and have any questions regarding this report, please contact the number below. For patients who have questions please contact the health lead caregiver that requested your imaging first. Electronically signed by: Debo Davies MD, [facility] ([phone]), at 07/21/2021 11:33 AM MRI Brain wwo Contrast (Generic) (Exam End: 07/21/2021 3:51 PM) Impression 1. 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 2. Mild interval enlargement of 2 posterior right frontal metastatic lesions and a new subcentimeter metastatic lesion in the anteromedial left temporal lobe. Thank you for letting us participate in the care of this patient. If you are a health care provider and have any questions regarding this report, please contact the number below. For patients who have questions please contact the health lead caregiver that requested your imaging first. Electronically signed by: Hemant Vanegas MD, [facility] ([phone]), at 07/21/2021 4:[address] Rad Onc Neuro Interp Only (Exam End: 07/22/2021 3:34 PM) Impression Expected findings. Thank you for letting us participate in the care of this patient. If you are a health care provider and have any questions regarding this report, please contact the number below. For patients who have questions please contact the health lead caregiver that requested your imaging first. Electronically signed by: Hemant Vanegas MD, [facility] ([phone]), at 07/22/2021 4:12 PM Microbiology Results (Last 30 days) Procedure Component Value Units Date/Time COVID-19 PCR [[id number]] Collected: 08/10/21 1212 Lab Status: Final result Specimen: Nasopharyngeal Swab Updated: 08/10/21 1628 SARS-CoV-2 RNA PCR Not Detected Comment: This result should be interpreted in combination with the clinical observations, patient history and epidemiological information. For testing of asymptomatic individuals, assay performance characteristics and clinical utility have not been evaluated. Testing for SARS-CoV-2 (Severe acute respiratory syndrome coronavirus 2, formerly known as 2019 novel coronavirus or 2019-nCoV) to aid in the diagnosis of COVID-19 is performed using the Simplex[employer] COVID-19 Direct Assay by [employer] as authorized by the FDA issued Emergency Use Authorization (EUA). This assay is intended for In-vitro Diagnostic (IVD) use with nasopharyngeal swabs collected from individuals meeting the CDC criteria for testing. The assay is performed based on the instructions for use and additional guidance provided by the FDA. Testing is performed in the Microbiology Laboratory within the Department of Pathology and Laboratory Medicine at [facility], certified under the Clinical Laboratory Improvement Amendments of 1988 (CLIA), 42 U.S.C. section 263a, to perform high complexity tests. Assay performance has been verified according to clinical laboratory regulatory requirements. Test results are provided above. A result of Not Detected indicates that the viral RNA target is not present but does not preclude SARS-CoV-2 infection. False negative results may occur if a specimen is improperly collected, transported or handled; if amplification inhibitors are present; or if inadequate numbers of viral particles are present in the specimen. A result of Detected suggests a current or recent infection and the patient is presumed to be infected. Positive and negative predictive values for this test are highly dependent on disease prevalence. A result of Invalid indicates the inability to conclusively determine the presence or absence of SARS-CoV-2 RNA in the sample which can be due to a variety of factors. Recollection is recommended in the case of an invalid result. CDC COVID-19 criteria for testing on human specimens and clinical management guidance information are available at the CDC Coronavirus Disease 2019 (COVID-19) webpage under Information for Healthcare Professionals (https://www.cdc.gov/coronavirus/2019-ncov/hcp/index.html). Additional information about this and other EUA tests can be found in provider and patient fact sheets at the following FDA website: https://www.fda.gov/medical-devices/tmlxppmlmzl-gsycwnt-3237-tshrp-61-bjkuvdare- cqn-oqlhlrstvavcpc-dfulujd-devices/ekrvh-tpwkqabofyn-dxth SARS-CoV-2 Source SALES SERVICE TECHNICIAN Swab COVID-19 PCR [[id number]] Collected: 07/24/21 0854 Lab Status: Final result Specimen: Nasopharyngeal Swab Updated: 07/24/21 1404 SARS-CoV-2 RNA Not Detected Comment: This result should be interpreted in combination with the clinical observations, patient history and epidemiological information in making a final diagnosis. For testing of asymptomatic individuals, assay performance characteristics and clinical utility have not been evaluated. Testing for SARS-CoV-2 (Severe acute respiratory syndrome coronavirus 2, formerly known as 2019 novel coronavirus or 2019-nCoV) to aid in the diagnosis of COVID-19 is performed using the Played SARS-CoV-2 Assay as authorized by the FDA Emergency Use Authorization (EUA). This EUA assay is intended for In-vitro Diagnostic (IVD) use with respiratory specimens such as nasopharyngeal swabs collected from individuals during the acute phase of infection. This assay is performed based on the instructions for use provided by [employer] and additional guidance provided by CDC and FDA. Testing is performed in the Clinical Genomics and Advanced Technology Laboratory within the Department of Pathology and Laboratory Medicine at [facility], certified under the Clinical Laboratory Improvement Amendments of 1988 (CLIA), 42 U.S.C. 263a, to perform high complexity tests. Assay performance has been verified according to clinical laboratory regulatory requirements for use with specimens collected from individuals suspected of COVID-19. Test results are provided above. A result of Not Detected indicates that the viral RNA target is not present above the limit of detection, but does not preclude SARS-CoV-2 infection. False negative results may occur if a specimen is improperly collected, transported or handled; if amplification inhibitors are present; or if inadequate numbers of viral particles are present in the specimen. When a diagnostic test is negative, the possibility of a false negative result should be considered in the context of a patient's recent exposures and the presence of clinical signs and symptoms consistent with COVID-19. A result of Detected indicates that RNA from SARS-CoV-2 was detected and the patient is infected. As required or requested by public health authorities, positive specimens may be sent for additional testing. Positive and negative predictive values for this test are highly dependent on disease prevalence. A result of Invalid indicates that neither the viral RNA targets nor the internal control target was detected. An invalid result suggests the presence of inhibitors. Recollection and re-testing is recommended in the case of an invalid result. CDC COVID-19 criteria for testing on human specimens and clinical management guidance information are available at the CDC Coronavirus Disease 2019 (COVID-19) webpage under Information for Healthcare Professionals (https://www.cdc.gov/coronavirus/2019-ncov/hcp/index.html) Additional information about this and other EUA tests can be found in provider and patient fact sheets at the following FDA website: https://www.fda.gov/medical-devices/reulqjeblqt-hllyfyp-5925-dnfft-92-urigjfwim- ybo-quvoukmhvioerk-nrzrfkh-devices/rvghz-gwzvctlixmk-dntq SARS-Cov-2 RNA Source SALES SERVICE TECHNICIAN Swab COVID-19 PCR [[id number]] Collected: 07/21/21 1700 Lab Status: Final result Specimen: Nasopharyngeal Swab Updated: 07/21/212029 SARS-CoV-2 RNA PCR Not Detected Comment: This result should be interpreted in combination with the clinical observations, patient history and epidemiological information. For testing of asymptomatic individuals, assay performance characteristics and clinical utility have not been evaluated. Testing for SARS-CoV-2 (Severe acute respiratory syndrome coronavirus 2, formerly known as 2019 novel coronavirus or 2019-nCoV) to aid in the diagnosis of COVID-19 is performed using the [employer] COVID-19 Direct Assay by [employer] as authorized by the FDA issued Emergency Use Authorization (EUA). This assay is intended for In-vitro Diagnostic (IVD) use with nasopharyngeal swabs collected from individuals meeting the CDC criteria for testing. The assay is performed based on the instructions for use and additional guidance provided by the FDA. Testing is performed in the Microbiology Laboratory within the Department of Pathology and Laboratory Medicine at [facility], certified under the Clinical Laboratory Improvement Amendments of 1988 (CLIA), 42 U.S.C. section 263a, to perform high complexity tests. Assay performance has been verified according to clinical laboratory regulatory requirements. Test results are provided above. A result of Not Detected indicates that the viral RNA target is not present but does not preclude SARS-CoV-2 infection. False negative results may occur if a specimen is improperly collected, transported or handled; if amplification inhibitors are present; or if inadequate numbers of viral particles are present in the specimen. A result of Detected suggests a current or recent infection and the patient is presumed to be infected. Positive and negative predictive values for this test are highly dependent on disease prevalence. A result of Invalid indicates the inability to conclusively determine the presence or absence of SARS-CoV-2 RNA in the sample which can be due to a variety of factors. Recollection is recommended in the case of an invalid result. CDC COVID-19 criteria for testing on human specimens and clinical management guidance information are available at the CDC Coronavirus Disease 2019 (COVID-19) webpage under Information for Healthcare Professionals (https://www.cdc.gov/coronavirus/2019-ncov/hcp/index.html). Additional information about this and other EUA tests can be found in provider and patient fact sheets at the following FDA website: https://www.fda.gov/medical-devices/qryukszknwo-isoclds-4857-qsofr-55-exytrmnzw- wtx-xucryvnldhiyfg-xxdcldx-devices/etprh-apyqsrwlbnw-zajk SARS-CoV-2 Source SALES SERVICE TECHNICIAN Swab Pending Studies and Lab Data: none Discharge Conditions/Prognosis: Stable with poor prognosis Discharge to: rehab Updated Allergies/ADRs: Allergies Allergen Reactions ??? Cis Free Text Allergy Environmental. CIS - Allergic Rhinitis Immunizations Given this Hospitalization: There is no immunization history on file for this patient. Discharge Medications: Your Medications New Medications Dose Details calcium carbonate 200 mg calcium (500 mg) Chew Commonly known as: Tums Take 1 tablet by mouth 2 times daily. 500 mg Refills: 0 divalproex EC 500 mg Tbec Commonly known as: Depakote Take 1 tablet by mouth 2 times daily. 500 mg Quantity: 90 tablet Refills: 3 melatonin 3 mg Tab Take 1 tablet by mouth nightly. 3 mg Refills: 0 memantine 10 mg Tab Commonly known as: Namenda Take 1 tablet by mouth See Admin Instructions. Take 10mg every morning and 5mg every evening until 08/20 at which time change to 10mg BID 10 mg Quantity: 60 tablet Refills: 12 Continued medications with new dosing Dose Details dexamethasone 2 mg Tab Commonly known as: DECADRON Take 1 tablet by mouth every 8 hours. What changed: ?? medication strength ?? how much to take ?? when to take this ?? additional instructions 2 mg Refills: 0 Continued medications, unchanged Dose Details acetaminophen 325 mg Tab Commonly known as: Tylenol Take 3 tablets by mouth every 8 hours as needed for Pain or Fever. 975 mg Quantity: 30 tablet Refills: 1 atorvastatin 80 mg Tab Commonly known as: Lipitor Take 80 mg by mouth every evening. 80 mg Refills: 0 levETIRAcetam 1,000 mg Tab Commonly known as: KEPPRA Take 1.5 tablets by mouth 2 times daily. 1,500 mg Refills: 0 metoprolol tartrate 25 mg Tab Commonly known as: Lopressor Take 0.5 tablets by mouth 2 times daily. 12.5 mg Quantity: 180 tablet Refills: 3 multivitamin Tab Commonly known as: THERAGRAN Take 1 tablet by mouth daily. 1 tablet Refills: 0 pantoprazole EC 40 mg Tbec Commonly known as: Protonix Take 1 tablet by mouth daily. 40 mg Quantity: 90 tablet Refills: 3 sodium chloride 1 gram Tab Take 1 tablet by mouth 3 times daily. 1 g Refills: 0 Smoking Status at Discharge: Social History Tobacco Use Smoking Status Former Smoker ??? Packs/day: 1.00 ??? Years: 30.00 ??? Pack years: 30.00 Smokeless Tobacco Former User ??? Quit date: 06/24/2021 Tobacco Comment Quit 5 days ago Instructions Given to Patient at Discharge: Patient Instructions Instructions on Discharge to Home Why you were hospitalized - You came to the hospital with right sided weakness You were admitted to the hospital with Right hemiplegia (paralysis of the right side). While you were here, you received full brain radiation. You tolerated this well and were able to be discharged to rehab Call your doctor or seek medical attention if you develop the following - chest pain, shortness of breath, fever, cough, weakness in an arm or leg Activity level - no restrictions Diet - no change in previous diet Shower/Bath - permitted Changes in Your Medications: Steroids to help reduce brain swelling Follow-up: Future Appointments Date Time Provider Department Center 08/16/2021 10:45 AM Darian Justice MD [facility] [id number] [facility] 08/22/2021 3:30 PM Asa Feng MD [facility] [place] [facility] 08/31/2021 1:00 PM Wally Chow MD [facility] NEURO [facility] Your Inpatient Doctor: John Neumann MD Your Primary Care Provider: Myriam Riggins MD [phone] For questions regarding this document or issues relating to this hospitalization on the Medical Service, please contact your inpatient physician through the [facility] Rail Car Painter/Sandblaster . Issues after hours and on weekends will be handled by the Hospitalist staff on-call. General Instructions None Future Appointments and Orders Future Appointments and Orders Future Appointments Provider Department Dept Phone 08/16/2021 10:45 AM Darian Justice MD Neurosurgery at [facility] Arrive at: Home [phone] Please do not come in for this visit. Your provider will call you at the number you provided. 08/22/2021 3:30 PM Asa Feng MD Hematology/Oncology at [facility] Arrive at: [facility] door at end of hallway [phone] 08/31/2021 1:00 PM Wally Chow MD Neurology at [facility] Arrive at: [facility] Cloth Reclaimer Area 3C [phone] Discharge References/Attachments None documented in this encounter Discharge Instructions Patient InstructionsWardJohn MD - 08/10/2021 12:52 PM EDT Instructions on Discharge to Home Why you were hospitalized - You came to the hospital with right sided weakness You were admitted to the hospital with Right hemiplegia (paralysis of the right side). While you were here, you received full brain radiation. You tolerated this well and were able to be discharged to rehab Call your doctor or seek medical attention if you develop the following - chest pain, shortness of breath, fever, cough, weakness in an arm or leg Activity level - no restrictions Diet - no change in previous diet Shower/Bath - permitted Changes in Your Medications: Steroids to help reduce brain swelling Follow-up: Future Appointments Date Time Provider Department Center 08/16/2021 10:45 AM Darian Justice MD [facility] [id number] [facility] 08/22/2021 3:30 PM Asa Feng MD [facility] [place] [facility] 08/31/2021 1:00 PM Wally Chow MD [facility] NEURO [facility] Your Inpatient Doctor: Jhon Neumann MD Your Primary Care Provider: Myriam Riggins MD [phone] For questions regarding this document or issues relating to this hospitalization on the Medical Service, please contact your inpatient physician through the [facility] Rail Car Painter/Sandblaster . Issues after hours and on weekends will be handled by the Hospitalist staff on-call. documented in this encounter Medications at Time of Discharge Medication Sig Dispensed Refills Start Date End Date memantine (Namenda) 10 mg Take 1 tablet by 60 tablet 12 05/2021 Tablet mouth See Admin Instructions. Take 10mg every morning and 5mg every evening until 08/20 at which time change to 10mg BID calcium carbonate (Tums) Take 1 tablet by 0 08/12 200 mg calcium (500 mg) mouth 2 times daily. Tablet, Chewable divalproex EC (Depakote) Take 1 tablet by 90 tablet 3 08/12 500 mg Tablet, Delayed mouth 2 times daily. Release (E.C.) levETIRAcetam (KEPPRA) Take 1.5 tablets by 0 06/0 05/2021 1,000 mg Tablet mouth 2 times daily. dexamethasone (DECADRON) 2 Take 1 tablet by 0 05/2021 mg Tablet mouth every 8 hours. melatonin 3 mg Tablet Take 1 tablet by 0 08/13/19 22 mouth nightly. multivitamin (THERAGRAN) Take 1 tablet by 0 Tablet mouth daily. acetaminophen (Tylenol) Take 3 tablets by 30 tablet 1 07/08 325 mg Tablet mouth every 8 hours as needed for Pain or Fever. metoprolol tartrate Take 0.5 tablets by 180 tablet 3 022 (Lopressor) 25 mg Tablet mouth 2 times daily. pantoprazole EC (Protonix) Take 1 tablet by 90 tablet 3 40 mg Tablet, Delayed mouth daily. Release (E.C.) sodium chloride 1 gram Take 1 tablet by 0 022 Tablet mouth 3 times daily. atorvastatin (Lipitor) 80 Take 80 mg by mouth 0 0 05/20/2021 mg Tablet every evening. documented as of this encounter Progress Notes Elaine Solis RN - 08/12/2021 4:27 PM EDT Pt d/c to rehab. Ride w/ daughter. PT assisted w/ getting pt into chair/car. Called report to rehabRN. mapping engineer aware pt will need help transferring into wheelchair from car upon arrival. PIV removed. Education provided via AVS. Marilu Leon RN - 08/12/2021 3:54 PM EDTSummary: Ambulance Physician Certification Statement for Non-Emergency Ambulance Services Section I - General Information Ilir Laird 1945 Medicare Number: [id number] Transport Date: 08/12/2021 (PCS is valid for round trips on this date and for all repetitive trips in the 60-day range as notedbelow.) Origin: [facility] Destination: [facility] Is the patient's stay covered under Medicare Part A (PPS/DRG)?: No Closest appropriate facility? Yes Transfer Type: N/A Rehab Section II - Medical Necessity Questionnaire Ambulance Transportation is medically necessary only if other means of transport are contraindicatedor would be potentially harmful to the patient. To meet this requirement, the patient must be eitherbed confined or suffer from a condition such that transport by means other than ambulance is contraindicated by the patient's condition. The following questions must be answered by the medical professional signing below for this form to be valid: 1) Describe the MEDICAL CONDITION (physical and/or mental) of this patient AT THE TIME OF AMBULANCE TRANSPORT that requires the patient to be transported in an ambulance and why transport by other means is contraindicated by the patient's condition: 2 assist for transfers, deconditioned, unable to safely transport in car or WC van. 2) Is the patient bed confined as defined below? No To be bed confined the patient must satisfy all three of the following conditions: - unable to get up from bed without assistance AND unable to ambulate AND unable to sit in a chair or wheelchair. 3) Can this patient safely be transported by car or wheelchair van (i.e. seated during transport, without medical stenographer or monitoring?): No 4) In addition to complete questions 1-3 above, please select any of the following conditions that apply: *Note: supporting documentation for any boxes checked must be maintained in the patient's medical records Moderate/severe pain on movement Unable to tolerate seated position for time needed to transport Other 2 max assist transfers Section III - Signature of Physician or Healthcare Professional I certify that the above information is true and correct based on my evaluation of this patient, andrepresent that the patient requires transport by ambulance and that other forms of transport are contraindicated. I understand that this information will be used by the Centers of Medicare and MedicaidServices ([facility]) to support the determination of medical necessity for ambulance services, and I represent that I have personal knowledge of the patient's condition at the time of transport. Marilu Leon RN 08/12/21 Form was electronically signed and dated by the patient's Physician or Healthcare Professional *Form must be signed only by patient's attending physician for scheduled, repetitive transports. Fornon-repetitive, unscheduled ambulance transports, when unable to obtain the signature of the attending physician, this form was signed by Registered Nurse Anna Mejia - 08/12/2021 2:25 PM EDT Office of Care Management(OCM)/Life Sciences Manager(RS) Patient Name: Ilir Laird : 1945 Patient has been offered a rehab bed at [facility]. No MD to MD report necessary Please call Nursing Report to [phone], ask for meal grinder tender. Info to accompany patient: Narcotic Prescriptions Copies of Medication Administration Records and IV sheets for past two weeks. Plan: Life Sciences Manager will be available to the patient and Building Estimator for further assistance. Patient will be discharged to: [facility] [place] [id number] Anna Mejia Life Sciences Manager Pricila Camacho OTA - 08/12/2021 11:00 AM EDT Occupational Therapy Treatment Note Treatment Number OT: 5 Patient Dx: Ilir Laird is a 75 y.o. male with pmhx of Metastatic NSCLC to the brain s/p debulking,CAD, HLD who presents to the ED for right sided weakness. ?? He has significant right sided weakness with decreased sensation over RLE. MRI showed metastatic reoccurence on the left with interval enlargement of 2 posterior right frontal metastatic lesions and new subcentimeter lesion in anteromedial left temproal love. Patient's history consistent with focal status aborted with ativan. Patient now on keppra 1.5g BID and depakote 500mg BID. Patient is receivingdecadron 6mg q6hr. ?? Past Medical History Past Medical History: Diagnosis Date ??? CAD (coronary artery disease) ? s/p CABG 2018 ??? High cholesterol ? Hypertension ? Tobacco use ? Past Surgical History Past Surgical History: Procedure Laterality Date ??? PRO EXCIS SUPRATENT BRAIN TUMOR Left 06/30/2021 ?? @CRANI, FOR TUMOR, SUPRATENTORIAL, NOT MENINGIOMA (WRVU 30.83) performed by D[facility] MD[facility] ??? PRO MICROSURG TECHNIQUES, REQ OPER MICROSCOPE N/A 06/30/2021 ?? MICROSCOPE USE (WRVU 3.46) performed by Darian Justice MD at [facility] MAIN OR ??? PRO STEREOTACTIC CPTR ASSTD PX CRANIAL, INTRADURAL N/A 06/30/2021 ?? STEREOTACTIC COMPUTER-ASSTD NAVIGATIONAL CRANIAL INTRADURAL (WRVU 3.75) performed by Darian Justice MD at [facility] MAIN OR ? Social History: Patient typically lives??alone in a house in [place], [place] with his dog Home Setup:??Pt reports that he has a ramp to enter with bilateral rails. Pt has one level home witha basement. Pt reports that he sleeps on the sofa at times. Pt has a tub/shower combo with GB.?? DME:??Walker, wheelchair?? Baseline ADL/Mobility:??Prior to admission; Pt was at [facility] getting rehab s/p last hospital admission and then discharged home. Pt was home for one day prior to needing to return to hospital due toincreased weakness in R hemibody. 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 Pt daughter Antonina, lives farther away, but is supportive. ?? Precautions/Special Considerations:??Limited code, AAT, at risk for falls, R sided weakness, R shoulder precautions Interval History: No acute events S: This is so much harder for me today than yesterday O: Patient seen for skilled OT treatment and demonstrated the following: ?? Self-care/ Functional Mobility: ?? Resting in bed on arrival, agreeable to therapy ?? Min A supine to sit with HOB elevated ?? Sat edge of bed with good seated balance. Demonstrated ability to scoot laterally in bed using BUE's ?? Donned t-shirt with setup assist ?? Donned pants with min A ?? Max A to don shoes and R AFO edge of bed ?? Sit to stand x3 with max A, gait belt and RW. Attempted weight shifting and marching in place. Ptunable to complete and required seated rest break ?? Performed sit to stand with max A and RW ?? Performed stand step transfer from bed to recliner chair with max A x2 with gait belt and walker ?? Performed seated ADL tasks while in recliner. Performed oral care, washed face and groomed hair from supported position ?? Pt left sitting upright with all needs within reach. RN aware ?? Cognition: ?? Behavior / Mood: alert, cooperative and highly motivated ?? Alert and oriented to: person, place, time and situation ?? Follows commands: multi step and 100% of the time ?? Attention: WFL ?? Safety awareness: fully aware of deficits Endurance: VSS on RA Pain: No complaints of pain Education: Pt/family/caregiver education ongoing regarding: Role of occupational therapy/rehabilitation, Transfers, Assistive device/technique, ADL, Exercise, Positioning, Safety, Precautions/Protocol,Functional Mobility, Activity pacing/Energy conservation, Home Program, Balance, Recommendations andDischarge planning. Staff Communication: Patient status, treatment, and mobility recommendations discussed with nursing/other staff. ASSESSMENT: Pt seen for OT treatment to address goals per POC. Pt pleasant and highly motivated to work with therapy. Pt performed dressing tasks, sit to stands, ADLs and transferred to recliner chair with assist. Pt reporting mobility is more difficult for him today and appears to be frustrated by that. Pt will highly benefit from acute rehab when medically ready. Pt will continue to benefit from OTinterventions while remaining house. Equipment needs at discharge: to be determined Anticipated Discharge Disposition: acute rehabilitation facility Daily schedule / Staff Recommendations: ?? Transfer to recliner chair and/or BSC as appropriate with??2A, FWW, and a gait belt for stand pivot transfer ?? Encourage independence with ADLS and provide assist only as needed ?? Allow pt extra time to complete functional tasks Occupational Therapy Goals: ongoing To be achieved by??08/19/21 Pt will be??min A??for LB dressing with AE as needed at seated/standing levels Pt will perform toileting hygiene with min A in sitting/standing Pt will perform clothing management during toileting routine with min A Pt will be??min A for UB dressing Pt will be independent for HEP for BUEs Pt will be able to stand for 8 minutes with CGA to perform ADL task Therapy Frequency (OT): 2-4 times/wk Total Minutes, Occupational Therapy: 39 ([facility] x3 [phone]) Pager: [phone] AROLDO Contreras 08/12/2021 Occupational Therapy Rehabilitation Department Neumann, John Brown MD - 08/12/2021 8:09 AM EDT Hospital Medicine Attending Daily Progress Note Admit Date: 07/21/2021 ( Hospital Day 22 days ) Active Hospital Problems Diagnosis ??? Right sided weakness ??? Right hemiplegia Resolved Hospital Problems No resolved problems to display. ASSESSMENT: Ilir Laird is a 75y/o M with h/o metastatic NSCLC, including brain mets, who presented with right hemiplegia and seizure activity following recent d/c from rehab. MRI brain showed recurrence of brain lesions (s/p debulking on 06/30), enlargement and new mets. Neurosurgery deferred repeat debulking. Medical management including IV steroids and whole brain radiation per Rad/Onc initiated. Pt has regained a lot of strength in RUE and RLE since admission. Platelets were downtrending; HIT negative. Now stabilized. Possibly sequela of radiation therapy. Restarted Lovenox 08/06. Plan for patient to go to acute rehab after completion of whole brain radiation on 08/10. PLAN: # Metastatic NSCLC # Brain mets - rapidly progressive # Right sided hemiplegia, acute - 2/2 rapidly progressive mets # Cerebral edema secondary to post-operative changes and secondary to metastatic disease # Worsening acute seizure activity 2/2 brain mets - MRI brain showed interval metastatic recurrence in 2 prior LT surgical beds with shifting edema, mild interval enlargement of 2 posterior RT frontal metastatic lesions and new sub-cm metastatic lesion in LT temporal lobe - Case discussed with neurosurgery, no surgical intervention necessary - S/P Keppra load 1gm IV x1 - will now continue home Keppra at 1500mg BID - Ativan 0.5mg PRN seizures - following risk benefit discussion with the patient and lack of evidence of reccurent seizure, seizure precautions were discontinued. Patient agreeable to reimplementation if seizures should reoccur.?? - Fall risk- Fall precautions ordered?? - COMMUNICATION STUDIES PROFESSOR evaluation- cleared for regular diet?? - goal sbp 90-160 - deptkote 500 mg BID, last trough level 37 on 07/29 - Q shift neuro checks: ?- ??if acute twitching, would discuss with neurology immediately givenconcern for seizure and possible need for vEEG or Depakote load ?- if acute worsening of neuro exam, may then be candidate for Mannitol. Very poor candidate for surgery given aggressive nature of malignancy and number of lesions. Additionally concern about post-op swelling delaying radiation - Neurology, neurosurgery, oncology, radiation oncology and palliative care consulted at time of admission - decreasing decadron dosing - Whole brain radiation therapy x 14 planned sessions with last treatment 08/10. - PT/OT recommending rehab; okay for d/c once pt finishes last radiation treatment - starting 07/30, memantine 5 mg daily 7 days, then 5 mg BID 7 days, then 10 mg morning/5 mg evening for 7 days, then 10 mg BID thereafter for minimum six months ?? 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 # Leukocytosis, chronic - stable - in setting of chronic steroid use - no sign of active infection ?? #Thrombocytopenia - stable - Heparin antibody negative - Started Lovnox sq on 08/06 given negative Heparin antibody - SCDs - daily hemogram ?? # CAD with h/o 4v CABG # HTN # HLD - Cont??Beta Cassie, and statin #FEN/PPx/Disposition - Nutrition: Regular diet - DVT PPx: Lovenox sq - GI PPx: PPI - Glycemic control: n/a - Disposition: Acute rehab when done with last radiation session - Code Status: Do NOT Attempt CPR - Inpatient IPI Certification I certify that I am a [facility] credentialed attending provider with admitting privileges and that the patient meets or has met medical necessity to require an inpatient IPI level of care meeting a minimum of two midnights or is on the [facility] inpatient only procedure list (status C) due to: the patient has metInpatient IPI criteria and is awaiting rehabilitation or prison facility placement with active referrals in process John Neumann MD [facility] Medicine PAGER: [phone] Subjective/24hr events: No acute events overnight, anticipating insurance approval for rehab, reducing dexamethasone dose, working with PT/OT ROS: Patient denies fevers, chills, nausea/vomiting, diarrhea/constipation, sob/cp, dysuria. Vitals: Last value Range last 24 hrs Temperature Temp: 36.7 ??C (98.1 ??F) Temp: [36.5 ??C (97.7 ??F)-36.7 ??C (98.1 ??F)] Heart Rate Heart Rate: 59 Heart Rate: [59-67] Blood Pressure BP: 124/65 BP: (118-126)/(62-75) Respiratory Rate Resp: 18 Resp: [14-18] SpO2 SpO2: 94 % SpO2: [90 %-95 %] Intake/Output Summary (Last 24 hours) at 08/12/2021 0809 Last data filed at 08/12/2021 0515 Gross per 24 hour Intake 550 ml Output 1025 ml Net -475 ml EXAM GEN: NAD, sitting up in bed EXT: no edema Neuro: Alert/oriented/appropriate LABS: Reviewed in eDH. Remarkable for the following: No results for input(s): WBC, HGB, HCT, PLATELET in the last 72 hours. No results for input(s): NA, K, CL, CO2, BUN, CREATININE, GLUCOSE, CALCIUM, MAGNESIUM, PHOS in the last 72 hours. No results for input(s): AST, ALT, ALKPHOS, BILITOT, BILIDIR in the last 72 hours. MICRO: No results for input(s): URINECULTURE in the last 720 hours. No results for input(s): BLOODCX in the last 720 hours. STUDIES: ?? IMAGING: Results for orders placed or performed during the hospital encounter of 07/21/21 CT Head wo Contrast (Generic) (Exam End: 07/21/2021 11:08 AM) ?? Impression ?? Increased size of hyperdense metastases along both cerebral convexities. Increased left frontoparietal vasogenic edema, sulcal effacement and mass effect on the left lateral ventricle. Similar vasogenic edema surrounding the right frontal convexity lesions. ?? Thank you for letting us participate in the care of this patient. If you are a health care provider and have any questions regarding this report, please contact the number below. For patients who have questions please contact the health lead caregiver that requested your imaging first. Electronically signed by: Debo Davies MD, [facility] ([phone]), at 07/21/2021 11:33 AM MRI Brain wwo Contrast (Generic) (Exam End: 07/21/2021 3:51 PM) ?? Impression ?? 1. 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 2. Mild interval enlargement of 2 posterior right frontal metastatic lesions and a new subcentimeter metastatic lesion in the anteromedial left temporal lobe. ?? Thank you for letting us participate in the care of this patient. If you are a health care provider and have any questions regarding this report, please contact the number below. For patients who have questions please contact the health lead caregiver that requested your imaging first. Electronically signed by: Hemant Vanegas MD, [facility] ([phone]), at 07/21/2021 4:[address] Rad Onc Neuro Interp Only (Exam End: 07/22/2021 3:34 PM) ?? Impression ?? Expected findings. ?? Thank you for letting us participate in the care of this patient. If you are a health care provider and have any questions regarding this report, please contact the number below. For patients who have questions please contact the health lead caregiver that requested your imaging first. Electronically signed by: Hemant Vanegas MD, [facility] ([phone]), at 07/22/2021 4:12 PM Medications: Scheduled Meds: ??? dexamethasone 2 mg Oral Q8H CORIN ??? enoxaparin 40 mg Subcutaneous Nightly ??? melatonin 3 mg Oral Nightly ??? memantine 5 mg Oral BID ??? [START ON 08/13/2021] memantine 10 mg Oral QAM And ??? [START ON 08/13/2021] memantine 5 mg Oral QPM ??? [START ON 08/20/2021] memantine 10 mg Oral BID ??? calcium carbonate 500 mg Oral BID ??? atorvastatin 80 mg Oral QPM ??? levETIRAcetam 1,500 mg Oral BID ??? metoprolol tartrate 12.5 mg Oral BID ??? pantoprazole EC 40 mg Oral Daily ??? sodium chloride 1 g Oral TID ??? sodium chloride 0.9 % (flush) 5 mL Intravenous BID ??? divalproex EC 500 mg Oral BID Continuous Infusions: PRN Meds:.carboxymethylcellulose, bisacodyL, acetaminophen, LORazepam, sodium chloride 0.9 % (flush), lidocaine Pricila Camacho OTA - 08/11/2021 2:08 PM EDT Occupational Therapy Note Document Type: contact Total Minutes, Occupational Therapy: 0 Reason: Attempted to see pt this afternoon for OT treatment. On arrival, pt off the floor with MT. Will follow up for treatment as able. Pager: [phone] AROLDO Contreras 08/11/2021 Occupational Therapy Rehabilitation Department John Neumann MD - 08/11/2021 11:45 AM EDT [facility] Medicine Attending Daily Progress Note Admit Date: 07/21/2021 ( Hospital Day 21 days ) Active Hospital Problems Diagnosis ??? Right sided weakness ??? Right hemiplegia Resolved Hospital Problems No resolved problems to display. ASSESSMENT: Ilir Laird is a 75y/o M with h/o metastatic NSCLC, including brain mets, who presented with right hemiplegia and seizure activity following recent d/c from rehab. MRI brain showed recurrence of brain lesions (s/p debulking on 06/30), enlargement and new mets. Neurosurgery deferred repeat debulking. Medical management including IV steroids and whole brain radiation per Rad/Onc initiated. Pt has regained a lot of strength in RUE and RLE since admission. Platelets were downtrending; HIT negative. Now stabilized. Possibly sequela of radiation therapy. Restarted Lovenox 08/06. Plan for patient to go to acute rehab after completion of whole brain radiation on 08/10. PLAN: # Metastatic NSCLC # Brain mets - rapidly progressive # Right sided hemiplegia, acute - 2/2 rapidly progressive mets # Cerebral edema secondary to post-operative changes and secondary to metastatic disease # Worsening acute seizure activity 2/2 brain mets - MRI brain showed interval metastatic recurrence in 2 prior LT surgical beds with shifting edema, mild interval enlargement of 2 posterior RT frontal metastatic lesions and new sub-cm metastatic lesion in LT temporal lobe - Case discussed with neurosurgery, no surgical intervention necessary - S/P Keppra load 1gm IV x1 - will now continue home Keppra at 1500mg BID - Ativan 0.5mg PRN seizures - following risk benefit discussion with the patient and lack of evidence of reccurent seizure, seizure precautions were discontinued. Patient agreeable to reimplementation if seizures should reoccur.?? - Fall risk- Fall precautions ordered?? - COMMUNICATION STUDIES PROFESSOR evaluation- cleared for regular diet?? - goal sbp 90-160 - deptkote 500 mg BID, last trough level 37 on 07/29 - Q shift neuro checks: ?- ??if acute twitching, would discuss with neurology immediately givenconcern for seizure and possible need for vEEG or Depakote load ?- if acute worsening of neuro exam, may then be candidate for Mannitol. Very poor candidate for surgery given aggressive nature of malignancy and number of lesions. Additionally concern about post-op swelling delaying radiation - Neurology, neurosurgery, oncology, radiation oncology and palliative care consulted at time of admission - decadron 4mg IV q 6 for 24 hours followed by 4mg PO q6 with goal of TID dosing at the time of discharge - Whole brain radiation therapy x 14 planned sessions with last treatment 08/10. - PT/OT recommending rehab; okay for d/c once pt finishes last radiation treatment - starting 07/30, memantine 5 mg daily 7 days, then 5 mg BID 7 days, then 10 mg morning/5 mg evening for 7 days, then 10 mg BID thereafter for minimum six months ?? 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 # Leukocytosis, chronic - stable - in setting of chronic steroid use - no sign of active infection ?? #Thrombocytopenia - stable - Heparin antibody negative - Started Lovnox sq on 08/06 given negative Heparin antibody - SCDs - daily hemogram ?? # CAD with h/o 4v CABG # HTN # HLD - Cont??Beta Cassie, and statin #FEN/PPx/Disposition - Nutrition: Regular diet - DVT PPx: Lovenox sq - GI PPx: PPI - Glycemic control: n/a - Disposition: Acute rehab when done with last radiation session - Code Status: Do NOT Attempt CPR - Inpatient IPI Certification I certify that I am a [facility] credentialed attending provider with admitting privileges and that the patient meets or has met medical necessity to require an inpatient IPI level of care meeting a minimum of two midnights or is on the CMS inpatient only procedure list (status C) due to: the patient has metInpatient IPI criteria and is awaiting rehabilitation or prison facility placement with active referrals in process John Neumann MD [facility] Medicine PAGER: [phone] Subjective/24hr events: No acute events overnight, anticipating insurance approval for rehab ROS: Patient denies fevers, chills, nausea/vomiting, diarrhea/constipation, sob/cp, dysuria. Vitals: Last value Range last 24 hrs Temperature Temp: 36.7 ??C (98.1 ??F) Temp: [36.3 ??C (97.4 ??F)-36.7 ??C (98.1 ??F)] Heart Rate Heart Rate: 74 Heart Rate: -- Blood Pressure BP: 118/70 BP: (105-125)/(61-76) Respiratory Rate Resp: 14 Resp: [14-18] SpO2 SpO2: 94 % SpO2: [91 %-95 %] Intake/Output Summary (Last 24 hours) at 08/11/2021 1145 Last data filed at 08/11/2021 0800 Gross per 24 hour Intake 420 ml Output 1325 ml Net -905 ml EXAM GEN: NAD, sitting up in a chair EXT: no edema Neuro: Alert/oriented/appropriate LABS: Reviewed in eDH. Remarkable for the following: No results for input(s): WBC, HGB, HCT, PLATELET in the last 72 hours. No results for input(s): NA, K, CL, CO2, BUN, CREATININE, GLUCOSE, CALCIUM, MAGNESIUM, PHOS in the last 72 hours. No results for input(s): AST, ALT, ALKPHOS, BILITOT, BILIDIR in the last 72 hours. MICRO: No results for input(s): URINECULTURE in the last 720 hours. No results for input(s): BLOODCX in the last 720 hours. STUDIES: ?? IMAGING: Results for orders placed or performed during the hospital encounter of 07/21/21 CT Head wo Contrast (Generic) (Exam End: 07/21/2021 11:08 AM) ?? Impression ?? Increased size of hyperdense metastases along both cerebral convexities. Increased left frontoparietal vasogenic edema, sulcal effacement and mass effect on the left lateral ventricle. Similar vasogenic edema surrounding the right frontal convexity lesions. ?? Thank you for letting us participate in the care of this patient. If you are a health care provider and have any questions regarding this report, please contact the number below. For patients who have questions please contact the health lead caregiver that requested your imaging first. Electronically signed by: Debo Davies MD, [facility] ([phone]), at 07/21/2021 11:33 AM MRI Brain wwo Contrast (Generic) (Exam End: 07/21/2021 3:51 PM) ?? Impression ?? 1. 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 2. Mild interval enlargement of 2 posterior right frontal metastatic lesions and a new subcentimeter metastatic lesion in the anteromedial left temporal lobe. ?? Thank you for letting us participate in the care of this patient. If you are a health care provider and have any questions regarding this report, please contact the number below. For patients who have questions please contact the health lead caregiver that requested your imaging first. Electronically signed by: Hemant Vanegas MD, [facility] ([phone]), at 07/21/2021 4:[address] Rad Onc Neuro Interp Only (Exam End: 07/22/2021 3:34 PM) ?? Impression ?? Expected findings. ?? Thank you for letting us participate in the care of this patient. If you are a health care provider and have any questions regarding this report, please contact the number below. For patients who have questions please contact the health lead caregiver that requested your imaging first. Electronically signed by: Hemant Vanegas MD, [facility] ([phone]), at 07/22/2021 4:12 PM Medications: Scheduled Meds: ??? enoxaparin 40 mg Subcutaneous Nightly ??? melatonin 3 mg Oral Nightly ??? dexamethasone 4 mg Oral Q6H CORIN ??? memantine 5 mg Oral BID ??? [START ON 08/13/2021] memantine 10 mg Oral QAM And ??? [START ON 08/13/2021] memantine 5 mg Oral QPM ??? [START ON 08/20/2021] memantine 10 mg Oral BID ??? calcium carbonate 500 mg Oral BID ??? atorvastatin 80 mg Oral QPM ??? levETIRAcetam 1,500 mg Oral BID ??? metoprolol tartrate 12.5 mg Oral BID ??? pantoprazole EC 40 mg Oral Daily ??? sodium chloride 1 g Oral TID ??? sodium chloride 0.9 % (flush) 5 mL Intravenous BID ??? divalproex EC 500 mg Oral BID Continuous Infusions: PRN Meds:.carboxymethylcellulose, bisacodyL, acetaminophen, LORazepam, sodium chloride 0.9 % (flush), lidocaine Ela Lindsay APRN - 08/11/2021 11:09 AM EDT [facility] Medicine Daily Progress Note Admit Date: 07/21/2021 ( Hospital Day 21 days ) Active Hospital Problems Diagnosis ??? Right sided weakness ??? Right hemiplegia Resolved Hospital Problems No resolved problems to display. 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 He was admitted to hospital medicine with an MRI significant for evidence of brain lesion recurrence and enlargement of metastatic lesions. Given the extensive nature of metastasis as well as rapid growth of previously debulked tumor, surgical intervention was deferred, IV steroids were started, and the patient was started on whole brain radiation per Radiation Oncology (first session 07/22, fourteen sessions total, last session was yesterday, 08/10). Platelet count has downtrend since 07/06, HIT was negative. Patient was restarted on Lovenox 08/06. Platelets 114 (08/08). ?? Patient received whole brain radiation yesterday. Currently waiting acute rehab placement. PLAN: # Metastatic NSCLC # Brain mets - rapidly progressive # Right sided hemiplegia, acute - 2/2 rapidly progressive mets # Cerebral edema secondary to post-operative changes and secondary to metastatic disease # Worsening acute seizure activity 2/2 brain mets -MRI brain showed interval metastatic recurrence in 2 prior LT surgical beds with shifting edema, mild interval enlargement of 2 posterior RT frontal metastatic lesions and new sub-cm metastatic lesionin LT temporal lobe -Case discussed with neurosurgery, no surgical intervention necessary?? -Following risk benefit discussion with the patient and lack of evidence of reccurent seizure, seizure precautions were discontinued. Patient agreeable to reimplementation if seizures should reoccur.?? -Qshift neuro checks: ?-If acute twitching, would discuss with neurology immediately given concern for seizure and possible need for vEEG or Depakote load ?-If acute worsening of neuro exam, may then be candidate for Mannitol.- Neurology, neurosurgery, oncology, radiation oncology and palliative care consulted at time of admission -Whole brain radiation therapy x 14 planned sessions with last treatment yesterdat -Awaiting rehab -Patient is fall risk, fall precautions -Goal SBP 90-160 -Seizure precautions -Keppra 1500mg BID -Ativan 0.5mg PRN seizures -Memantine 5 mg daily 7 days (07/30-08/05), then 5 mg BID 7 days, then 10 mg morning/5 mg evening for 7 days, then 10 mg BID thereafter for minimum six months -Decadron 4mg PO q6 with goal of TID dosing at the time of discharge -Deptkote 500 mg BID, last trough level 37 on 07/29 # Hyponatremia likely due to SIADH -stable -Urine studies consistent with SIADH -Fluid restriction 1.5L -Sodium chloride tablet 1g TID # Thrombocytopenia -Heparin antibody negative -Lovenox started 08/06 # CAD with h/o 4v CABG # HTN # HLD -Continue metoprolol 12.5mg BID -Continue atorvastatin 80mg nightly #FEN/PPx/Disposition - Fluids: None - Lines/bolivar: PIV - Nutrition: Regular diet - DVT PPx: Lovenox - GI PPx: Pantoprazole - Disposition: Rebab - Family support: Sandro, 08/10 - Code Status: Do NOT Attempt CPR - Inpatient Ela Lindsay APRN TEAM/PAGER: [phone] Subjective/24hr events: -Patient feeling well after last radiation session -Eating well -Ready to get to rehab -No acute overnight events ROS: Patient denies fevers, chills, nausea/vomiting, diarrhea/constipation, SOB/CP, dysuria. Vitals: Last value Range last 24 hrs Temperature Temp: 36.7 ??C (98.1 ??F) Temp: [36.3 ??C (97.4 ??F)-36.8 ??C (98.2 ??F)] Heart Rate Heart Rate: 74 Heart Rate: -- Blood Pressure BP: 118/70 BP: (105-125)/(61-76) Respiratory Rate Resp: 14 Resp: [14-18] SpO2 SpO2: 94 % SpO2: [91 %-95 %] Intake/Output Summary (Last 24 hours) at 08/11/2021 1116 Last data filed at 08/11/2021 0800 Gross per 24 hour Intake 420 ml Output 1325 ml Net -905 ml EXAM GEN: Sitting in bed, on RA, breathing comfortably, NAD HEENT: at/nc, anicteric CV: RRR, no m/r/g PULM: CTABL, comfortable ABD: soft, nt/nd, nabs EXT: no edema Neuro: Alert/oriented/appropriate Skin: no rash LABS: Reviewed in eDH. Remarkable for the following: No results for input(s): WBC, HGB, HCT, PLATELET in the last 72 hours. No results for input(s): NA, K, CL, CO2, BUN, CREATININE, GLUCOSE, CALCIUM, MAGNESIUM, PHOS in the last 72 hours. No results for input(s): AST, ALT, ALKPHOS, BILITOT, BILIDIR in the last 72 hours. MICRO: No results for input(s): URINECULTURE in the last 720 hours. No results for input(s): BLOODCX in the last 720 hours. STUDIES: Results for orders placed or performed during the hospital encounter of 07/21/21 CT Head wo Contrast (Generic) (Exam End: 07/21/2021 11:08 AM) Impression Increased size of hyperdense metastases along both cerebral convexities. Increased left frontoparietal vasogenic edema, sulcal effacement and mass effect on the left lateral ventricle. Similar vasogenic edema surrounding the right frontal convexity lesions. Thank you for letting us participate in the care of this patient. If you are a health care provider and have any questions regarding this report, please contact the number below. For patients who have questions please contact the health lead caregiver that requested your imaging first. Electronically signed by: Debo Davies MD, [facility] ([phone]), at 07/21/2021 11:33 AM MRI Brain wwo Contrast (Generic) (Exam End: 07/21/2021 3:51 PM) Impression 1. 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 2. Mild interval enlargement of 2 posterior right frontal metastatic lesions and a new subcentimeter metastatic lesion in the anteromedial left temporal lobe. Thank you for letting us participate in the care of this patient. If you are a health care provider and have any questions regarding this report, please contact the number below. For patients who have questions please contact the health lead caregiver that requested your imaging first. Electronically signed by: Hemant Vanegas MD, [facility] ([phone]), at 07/21/2021 4:[address] Rad Onc Neuro Interp Only (Exam End: 07/22/2021 3:34 PM) Impression Expected findings. Thank you for letting us participate in the care of this patient. If you are a health care provider and have any questions regarding this report, please contact the number below. For patients who have questions please contact the health lead caregiver that requested your imaging first. Electronically signed by: Hemant Vanegas MD, [facility] ([phone]), at 07/22/2021 4:12 PM Medications: Scheduled Meds: ??? enoxaparin 40 mg Subcutaneous Nightly ??? melatonin 3 mg Oral Nightly ??? dexamethasone 4 mg Oral Q6H CORIN ??? memantine 5 mg Oral BID ??? [START ON 08/13/2021] memantine 10 mg Oral QAM And ??? [START ON 08/13/2021] memantine 5 mg Oral QPM ??? [START ON 08/20/2021] memantine 10 mg Oral BID ??? calcium carbonate 500 mg Oral BID ??? atorvastatin 80 mg Oral QPM ??? levETIRAcetam 1,500 mg Oral BID ??? metoprolol tartrate 12.5 mg Oral BID ??? pantoprazole EC 40 mg Oral Daily ??? sodium chloride 1 g Oral TID ??? sodium chloride 0.9 % (flush) 5 mL Intravenous BID ??? divalproex EC 500 mg Oral BID Continuous Infusions: PRN Meds:.carboxymethylcellulose, bisacodyL, acetaminophen, LORazepam, sodium chloride 0.9 % (flush), lidocaine Ela Lindsay, ROLLER REPAIRER - 08/10/2021 10:15 AM EDT [facility] Medicine Daily Progress Note Admit Date: 07/21/2021 ( Hospital Day 20 days ) Active Hospital Problems Diagnosis ??? Right sided weakness ??? Right hemiplegia Resolved Hospital Problems No resolved problems to display. 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 He was admitted to hospital medicine with an MRI significant for evidence of brain lesion recurrence and enlargement of metastatic lesions. Given the extensive nature of metastasis as well as rapid growth of previously debulked tumor, surgical intervention was deferred, IV steroids were started, and the patient was started on whole brain radiation per Radiation Oncology (first session 5/13, fourteen sessions total, anticipated end-date08/10). Platelet count has downtrend since 07/06, HIT was negative. Patient was restarted on Lovenox 08/06. Platelets 114 (08/08). ?? Patient scheduled for whole brain radiation this afternoon and awaiting acute rehab placement. PLAN: # Metastatic NSCLC # Brain mets - rapidly progressive # Right sided hemiplegia, acute - 2/2 rapidly progressive mets # Cerebral edema secondary to post-operative changes and secondary to metastatic disease # Worsening acute seizure activity 2/2 brain mets -MRI brain showed interval metastatic recurrence in 2 prior LT surgical beds with shifting edema, mild interval enlargement of 2 posterior RT frontal metastatic lesions and new sub-cm metastatic lesionin LT temporal lobe -Case discussed with neurosurgery, no surgical intervention necessary?? -Following risk benefit discussion with the patient and lack of evidence of reccurent seizure, seizure precautions were discontinued. Patient agreeable to reimplementation if seizures should reoccur.?? -Qshift neuro checks: ?-If acute twitching, would discuss with neurology immediately given concern for seizure and possible need for vEEG or Depakote load ?-If acute worsening of neuro exam, may then be candidate for Mannitol.- Neurology, neurosurgery, oncology, radiation oncology and palliative care consulted at time of admission -Whole brain radiation therapy x 14 planned sessions with last treatment today -PT/OT recommending rehab; okay for d/c once pt finishes last radiation treatment -Patient is fall risk, fall precautions -COMMUNICATION STUDIES PROFESSOR evaluation: regular diet -Goal SBP 90-160 -Seizure precautions -Keppra 1500mg BID -Ativan 0.5mg PRN seizures -Memantine 5 mg daily 7 days (07/30-08/05), then 5 mg BID 7 days, then 10 mg morning/5 mg evening for 7 days, then 10 mg BID thereafter for minimum six months -Decadron 4mg PO q6 with goal of TID dosing at the time of discharge -Deptkote 500 mg BID, last trough level 37 on 07/29 # Hyponatremia likely due to SIADH -stable -Urine studies consistent with SIADH -Fluid restriction 1.5L -Sodium chloride tablet 1g TID # Thrombocytopenia -Heparin antibody negative -Lovenox started 08/06 # CAD with h/o 4v CABG # HTN # HLD -Continue metoprolol 12.5mg BID -Continue atorvastatin 80mg nightly #FEN/PPx/Disposition - Fluids: None - Lines/bolivar: PIV - Nutrition: Regular diet - DVT PPx: Lovenox - GI PPx: Pantoprazole - Disposition: Rebab - Family support: Antonina, daughter, 08/09 - Code Status: Do NOT Attempt CPR - Inpatient Ela Lindsay APRN TEAM/PAGER: [phone] Subjective/24hr events: -Patient feeling well, ready for last radiation session this afternoon -Eating well and moving bowels -No acute overnight events ROS: Patient denies fevers, chills, nausea/vomiting, diarrhea/constipation, SOB/CP, dysuria. Vitals: Last value Range last 24 hrs Temperature Temp: 36.4 ??C (97.5 ??F) Temp: [36.4 ??C (97.5 ??F)-36.6 ??C (97.9 ??F)] Heart Rate Heart Rate: 74 Heart Rate: [74] Blood Pressure BP: 131/71 BP: (117-131)/(67-74) Respiratory Rate Resp: 18 Resp: [16-18] SpO2 SpO2: 95 % SpO2: [92 %-95 %] Intake/Output Summary (Last 24 hours) at 08/10/2021 1018 Last data filed at 08/10/2021 0800 Gross per 24 hour Intake 100 ml Output 275 ml Net -175 ml EXAM GEN: Sitting in bed, on RA, breathing comfortably, NAD HEENT: at/nc, anicteric CV: RRR, no m/r/g PULM: CTABL, comfortable ABD: soft, nt/nd, nabs EXT: no edema Neuro: Alert/oriented/appropriate Skin: no rash LABS: Reviewed in eDH. Remarkable for the following: Recent Labs 08/08/21 0514 WBC 16.5* HGB 14.0 HCT 40.0* PLATELET 114* Recent Labs 08/08/21 0514 NA 127* K 4.7 CL 94* CO2 25 BUN 23* CREATININE 0.71* CALCIUM 7.7* No results for input(s): AST, ALT, ALKPHOS, BILITOT, BILIDIR in the last 72 hours. MICRO: No results for input(s): URINECULTURE in the last 720 hours. No results for input(s): BLOODCX in the last 720 hours. STUDIES: Results for orders placed or performed during the hospital encounter of 07/21/21 CT Head wo Contrast (Generic) (Exam End: 07/21/2021 11:08 AM) Impression Increased size of hyperdense metastases along both cerebral convexities. Increased left frontoparietal vasogenic edema, sulcal effacement and mass effect on the left lateral ventricle. Similar vasogenic edema surrounding the right frontal convexity lesions. Thank you for letting us participate in the care of this patient. If you are a health care provider and have any questions regarding this report, please contact the number below. For patients who have questions please contact the health lead caregiver that requested your imaging first. Electronically signed by: Debo Davies MD, [facility] ([phone]), at 07/21/2021 11:33 AM MRI Brain wwo Contrast (Generic) (Exam End: 07/21/2021 3:51 PM) Impression 1. 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 2. Mild interval enlargement of 2 posterior right frontal metastatic lesions and a new subcentimeter metastatic lesion in the anteromedial left temporal lobe. Thank you for letting us participate in the care of this patient. If you are a health care provider and have any questions regarding this report, please contact the number below. For patients who have questions please contact the health lead caregiver that requested your imaging first. Electronically signed by: Hemant Vanegas MD, [facility] ([phone]), at 07/21/2021 4:[address] Rad Onc Neuro Interp Only (Exam End: 07/22/2021 3:34 PM) Impression Expected findings. Thank you for letting us participate in the care of this patient. If you are a health care provider and have any questions regarding this report, please contact the number below. For patients who have questions please contact the health lead caregiver that requested your imaging first. Electronically signed by: Hemant Vanegas MD, [facility] ([phone]), at 07/22/2021 4:12 PM Medications: Scheduled Meds: ??? enoxaparin 40 mg Subcutaneous Nightly ??? melatonin 3 mg Oral Nightly ??? dexamethasone 4 mg Oral Q6H CORIN ??? memantine 5 mg Oral BID ??? [START ON 08/13/2021] memantine 10 mg Oral QAM And ??? [START ON 08/13/2021] memantine 5 mg Oral QPM ??? [START ON 08/20/2021] memantine 10 mg Oral BID ??? calcium carbonate 500 mg Oral BID ??? atorvastatin 80 mg Oral QPM ??? levETIRAcetam 1,500 mg Oral BID ??? metoprolol tartrate 12.5 mg Oral BID ??? pantoprazole EC 40 mg Oral Daily ??? sodium chloride 1 g Oral TID ??? sodium chloride 0.9 % (flush) 5 mL Intravenous BID ??? divalproex EC 500 mg Oral BID Continuous Infusions: PRN Meds:.carboxymethylcellulose, bisacodyL, acetaminophen, LORazepam, sodium chloride 0.9 % (flush), lidocaine Philly Garcia RN - 08/10/2021 10:01 AM EDT Palliative Care Palliative Care received voicemail message from Ilir's daughter Sandro, saying she'd noticed some changes when visiting her father yesterday, and wants to talk to someone about those changes. I called Sandro to get more information about her concerns: [phone] (cell). Changes Sandro noted: ?? Ilir's report of breathing discomfort when sitting up straight. Sandro stated when she and her sister visited Ilir yesterday, he positioned bed so he was sitting straight up, as he always had before, but told them after doing that that he was having some trouble breathing when sitting like that, so reclined the head of the bed some, then continued the visit with no further comment of discomfort. ?? Ilir's report of fuzzy vision Sandro said she brought in Ilir's checkbook and some bills; he said he was having trouble seeing them, said I think the radiation is changing my vision. ?? Ilir being angry, agitated, not my Dad. Sandro said that before the Physical Therapist came in the room, he was swearing about being in the hospital, sick of pills. When nurse left him with pill cup with medications, he pushed them away, andstalled for about 20 minutes til he took them. Sandro said she knows the hospitalization has been difficult for her father, and that some medications, like steroids, can cause mood changes. She said she just wants to make sure that nothing is overlooked before he goes to rehab. She also expressed that in watching the Physical Therapist help her father transfer into and out of a chair, she has become nervous about driving him to rehab in her car. She also voiced understanding that insurances have strict criteria on covering ambulance transport. I told Sandro that reporting changes she notices to her father's medical team is helpful, and continuing to be his advocate is important. PLAN reviewed with Sandro: ?? I will pass on the information she shared to her father's primary team, and ask them to call Sandro later today with a medical update and to specifically address her concerns. (She is not able to come to [facility] today) Sandro voiced understanding of/agreement with plan. Jim Garcia RN, PN Nurse Clinician Palliative Care Pager [phone] Neumann, John Brown MD - 08/10/2021 8:03 AM EDT Hospital Medicine Attending Daily Progress Note Admit Date: 07/21/2021 ( Hospital Day 20 days ) Active Hospital Problems Diagnosis ??? Right sided weakness ??? Right hemiplegia Resolved Hospital Problems No resolved problems to display. ASSESSMENT: Ilir Laird is a 75y/o M with h/o metastatic NSCLC, including brain mets, who presented with right hemiplegia and seizure activity following recent d/c from rehab. MRI brain showed recurrence of brain lesions (s/p debulking on 06/30), enlargement and new mets. Neurosurgery deferred repeat debulking. Medical management including IV steroids and whole brain radiation per Rad/Onc initiated. Pt has regained a lot of strength in RUE and RLE since admission. Platelets were downtrending; HIT negative. Now stabilized. Possibly sequela of radiation therapy. Restarted Lovenox 08/06. Plan for patient to go to acute rehab after completion of whole brain radiation on 08/10. PLAN: # Metastatic NSCLC # Brain mets - rapidly progressive # Right sided hemiplegia, acute - 2/2 rapidly progressive mets # Cerebral edema secondary to post-operative changes and secondary to metastatic disease # Worsening acute seizure activity 2/2 brain mets - MRI brain showed interval metastatic recurrence in 2 prior LT surgical beds with shifting edema, mild interval enlargement of 2 posterior RT frontal metastatic lesions and new sub-cm metastatic lesion in LT temporal lobe - Case discussed with neurosurgery, no surgical intervention necessary - S/P Keppra load 1gm IV x1 - will now continue home Keppra at 1500mg BID - Ativan 0.5mg PRN seizures - following risk benefit discussion with the patient and lack of evidence of reccurent seizure, seizure precautions were discontinued. Patient agreeable to reimplementation if seizures should reoccur.?? - Fall risk- Fall precautions ordered?? - COMMUNICATION STUDIES PROFESSOR evaluation- cleared for regular diet?? - goal sbp 90-160 - deptkote 500 mg BID, last trough level 37 on 07/29 - Q shift neuro checks: ?- ??if acute twitching, would discuss with neurology immediately givenconcern for seizure and possible need for vEEG or Depakote load ?- if acute worsening of neuro exam, may then be candidate for Mannitol. Very poor candidate for surgery given aggressive nature of malignancy and number of lesions. Additionally concern about post-op swelling delaying radiation - Neurology, neurosurgery, oncology, radiation oncology and palliative care consulted at time of admission - decadron 4mg IV q 6 for 24 hours followed by 4mg PO q6 with goal of TID dosing at the time of discharge - Whole brain radiation therapy x 14 planned sessions with last treatment 08/10. - PT/OT recommending rehab; okay for d/c once pt finishes last radiation treatment - starting 07/30, memantine 5 mg daily 7 days, then 5 mg BID 7 days, then 10 mg morning/5 mg evening for 7 days, then 10 mg BID thereafter for minimum six months ?? 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 # Leukocytosis, chronic - stable - in setting of chronic steroid use - no sign of active infection ?? #Thrombocytopenia - stable - Heparin antibody negative - Started Lovnox sq on 08/06 given negative Heparin antibody - SCDs - daily hemogram ?? # CAD with h/o 4v CABG # HTN # HLD - Cont??Beta Cassie, and statin #FEN/PPx/Disposition - Nutrition: Regular diet - DVT PPx: Lovenox sq - GI PPx: PPI - Glycemic control: n/a - Disposition: Acute rehab when done with last radiation session - Code Status: Do NOT Attempt CPR - Inpatient IPI Certification I certify that I am a [facility] credentialed attending provider with admitting privileges and that the patient meets or has met medical necessity to require an inpatient IPI level of care meeting a minimum of two midnights or is on the CMS inpatient only procedure list (status C) due to: the patient has metInpatient IPI criteria and is awaiting rehabilitation or prison facility placement with active referrals in process John Neumann MD [facility] Medicine PAGER: [phone] Subjective/24hr events: No acute events overnight, tolerated radiation therapy, planning for last session today, worked withPT, daughter updated at bedside ROS: Patient denies fevers, chills, nausea/vomiting, diarrhea/constipation, sob/cp, dysuria. Vitals: Last value Range last 24 hrs Temperature Temp: 36.4 ??C (97.5 ??F) Temp: [36.4 ??C (97.5 ??F)-36.6 ??C (97.9 ??F)] Heart Rate Heart Rate: 74 Heart Rate: [74] Blood Pressure BP: 131/71 BP: (117-131)/(67-74) Respiratory Rate Resp: 18 Resp: [16-18] SpO2 SpO2: 95 % SpO2: [92 %-95 %] Intake/Output Summary (Last 24 hours) at 08/10/2021 0803 Last data filed at 08/09/2021 1600 Gross per 24 hour Intake 220 ml Output 400 ml Net -180 ml EXAM GEN: NAD, sitting up in a chair EXT: no edema Neuro: Alert/oriented/appropriate LABS: Reviewed in eDH. Remarkable for the following: Recent Labs 08/08/21 0514 WBC 16.5* HGB 14.0 HCT 40.0* PLATELET 114* Recent Labs 08/08/21 0514 NA 127* K 4.7 CL 94* CO2 25 BUN 23* CREATININE 0.71* CALCIUM 7.7* No results for input(s): AST, ALT, ALKPHOS, BILITOT, BILIDIR in the last 72 hours. MICRO: No results for input(s): URINECULTURE in the last 720 hours. No results for input(s): BLOODCX in the last 720 hours. STUDIES: ?? IMAGING: Results for orders placed or performed during the hospital encounter of 07/21/21 CT Head wo Contrast (Generic) (Exam End: 07/21/2021 11:08 AM) ?? Impression ?? Increased size of hyperdense metastases along both cerebral convexities. Increased left frontoparietal vasogenic edema, sulcal effacement and mass effect on the left lateral ventricle. Similar vasogenic edema surrounding the right frontal convexity lesions. ?? Thank you for letting us participate in the care of this patient. If you are a health care provider and have any questions regarding this report, please contact the number below. For patients who have questions please contact the health lead caregiver that requested your imaging first. Electronically signed by: Debo Davies MD, [facility] ([phone]), at 07/21/2021 11:33 AM MRI Brain wwo Contrast (Generic) (Exam End: 07/21/2021 3:51 PM) ?? Impression ?? 1. 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 2. Mild interval enlargement of 2 posterior right frontal metastatic lesions and a new subcentimeter metastatic lesion in the anteromedial left temporal lobe. ?? Thank you for letting us participate in the care of this patient. If you are a health care provider and have any questions regarding this report, please contact the number below. For patients who have questions please contact the health lead caregiver that requested your imaging first. Electronically signed by: Hemant Vanegas MD, [facility] ([phone]), at 07/21/2021 4:[address] Rad Onc Neuro Interp Only (Exam End: 07/22/2021 3:34 PM) ?? Impression ?? Expected findings. ?? Thank you for letting us participate in the care of this patient. If you are a health care provider and have any questions regarding this report, please contact the number below. For patients who have questions please contact the health lead caregiver that requested your imaging first. Electronically signed by: Hemant Vanegas MD, [facility] ([phone]), at 07/22/2021 4:12 PM Medications: Scheduled Meds: ??? enoxaparin 40 mg Subcutaneous Nightly ??? melatonin 3 mg Oral Nightly ??? dexamethasone 4 mg Oral Q6H CORIN ??? memantine 5 mg Oral BID ??? [START ON 08/13/2021] memantine 10 mg Oral QAM And ??? [START ON 08/13/2021] memantine 5 mg Oral QPM ??? [START ON 08/20/2021] memantine 10 mg Oral BID ??? calcium carbonate 500 mg Oral BID ??? atorvastatin 80 mg Oral QPM ??? levETIRAcetam 1,500 mg Oral BID ??? metoprolol tartrate 12.5 mg Oral BID ??? pantoprazole EC 40 mg Oral Daily ??? sodium chloride 1 g Oral TID ??? sodium chloride 0.9 % (flush) 5 mL Intravenous BID ??? divalproex EC 500 mg Oral BID Continuous Infusions: PRN Meds:.carboxymethylcellulose, bisacodyL, acetaminophen, LORazepam, sodium chloride 0.9 % (flush), lidocaine Margo Frazier, PT - 08/09/2021 10:35 AM EDT Physical Therapy Note Treatment Number PT: 7 Patient profile: Ilir Laird is a 75 y.o. 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 Presley Guerin MD with new (R) sided twitching and (R) hemiplegia. MRI brain with evidence of recurrence of brain mets and new lesions as well per hospital medicine team report. Given the extensive nature of metastasis as well as rapid growth of previously debulked tumor, surgical intervention was deferred, IV steroids were started, and the patient was started on whole brain radiation per Radiation Oncology (first session 07/22, fourteen sessions total, anticipated end-date 08/10).?? Interval History: no acute overnight events Social History: Ilir typically??lives??alone in a house in [place], [place] with his dog. Pt reports that he has a ramp to enter with bilateral rails. Pt has one level home with a basement. Pt reports thathe sleeps on the sofa at times. Pt has a tub/shower combo with GB.?? DME:??Walker, wheelchair?? Baseline ADL/Mobility:??Prior to admission;??Pt was at [facility] getting rehab s/p last hospital admission and then discharged home. Pt was home for one day prior to needing to return to hospital due to increased weakness in R hemibody. 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 Pt daughter Antonina, lives farther away, but is supportive. ?? Precautions/Special Considerations: DNR, high fall risk, high risk for skin breakdown, bleeding precautions, Maintain HOB elevation per Dr. Guerin, Maintain SBP 90-160, (R) sided weakness Lines: PIV Activity Orders: AAT Diet: Regular diet Mobility and Positioning Recommendations: ?? Pt to utilize FWW and assist x 2 for stand-pivot transfers with nursing. Pt needs R AFO and B shoes, one person must assist with lifting/moving RLE. Go towards L when able, pt can transfer both ways. Make sure chair is close to bed. ?? Up to chair for all meals. ?? Perform sit <> stands from EOB with FWW, R AFO, B shoes and Marimar x 1 (guard on R side) 3x throughout the day as many as pt can complete in 2 minutes, encourage nose over toes and rocking forward 3 times before standing. Subjective: I know my right leg is not going to get better if I don't use it, I have to keep using it or I will lose it, that's why I do the exercises in my bed. Objective: Patient seen for physical therapy and demonstrated the following: Pain: no actual or suspected pain Vital Signs: on RA, VSS ?? Pt received supine in bed, agreeable to therapy ?? B shoes and R AFO dependently donned, on throughout session ?? Supine > sit: Marimar via handhold with HOB elevated and use of bedrails, hooks R LE with L LE toassist off bed, requires increased time and effort to complete ?? Bed > w/c: SPT toward L with FWW and Marimar; sit <> stand CGA with B UE support on FWW; requires assistance during transfer for R LE management d/t impaired strength and motor control ?? Pt dependently transported to therapy gym in w/c ?? Sit <> stands: multiple completed throughout session in parallel bars with heavy UE supportand CGA, utilized momentum strategy; pt demonstrates increased WB on L LE ?? Pt ambulated 16ft x 1; 8ft in parallel bars with 2 assist and R AFO, mirror in front for visual cues, required prolonged seated rest break between trials d/t fatigue; CGA x 1 at trunk and Marimar x 1 -assist required for R limb placement, pt able to advance R limb without physical assist however doesnot have motor control to place properly, CGA around R knee during stance to guard to prevent knee hyperextension or knee buckling ?? Pt performed side stepping in parallel bars with 2 assist and R AFO; CGA x 1 at trunk for safety and Min-ModA x 1 for R limb management, increased difficulty progressing R LE going toward L > R ?? Pt ambulated 8ft in parallel bars backwards with 2 assist and R AFO; CGA x 1 at trunk and Min-ModA x 1 for R limb advancement and CGA around R knee during stance to protect knee joint ?? Pt dependently transported to room in w/c ?? W/c > bedside recliner: SPT to R with FWW and 2 assist, CGA-Marimar x 1 at trunk and Mod-MaxA x 1for R LE management; increased assist required d/t increased fatigue and going toward R and decreased space in room for set-up ?? Pt left seated in bedside recliner, chair alarm on, all needs met, call lozano in reach; RN updatedfollowing session Education: Pt educated on importance of getting into the chair for all meals to practice SPT, performing strength exercises daily, and continuation of gait training during therapy sessions to return toprior level function. Pt verbalized understanding and all questions were addressed. Assessment: Ilir Laird was seen today for physical therapy treatment. Pt was very pleasant and motivated to participate in therapy session. Session was focused on gait training to increase independence and safety during functional mobility. Pt demonstrates improved sit <> stands without verbalcues for technique and improved R limb advancement in forward progression. Pt still has increased difficulty with R limb advancement in other planes of motion (walking backwards, side stepping). Pt continues to demonstrate impaired R UE/LE strength, R LE motor control/coordination, R LE sensation, standing balance, activity tolerance and endurance. Pt is an excellent candidate for acute rehab d/t high motivation, able to tolerate 3 hours of therapy per day, good social supports and has demonstrated steady improvements since admission. Pt requires discharge to acute rehab facility to address impairments, goals and for safe discharge home. Plan to focus on ambulation in different directions in parallel bars (side stepping, forwards/backwards walking), obstacle negotiation and transference to ambulation with FWW. Discharge Recommendations: Based on the current findings, Anticipated Discharge Disposition (PT): acute rehabilitation facilitywhen medically ready for hospital discharge. Consult Recommendations: No other consults recommended at this time. Equipment needs: Anticipated Equipment Needs at Discharge (PT): to be determined Goals: To be achieved by 08/12/21: ONGOING, unless otherwise stated 1. Pt. to demonstrate knowledge of safety limitations and precautions and will appropriately requestassistance for functional activities and to mobilize. MET 2. Pt. to demonstrate understanding of appropriate seated LE exercises. MET 3. Pt to participate in standardized balance assessment. 4. Pt. to perform bed mobility independently from flat bed. 5. Pt. to perform SPT with FWW and R AFO independently. 6. Pt. to ambulate 75ft with FWW and R AFO independently. 7. Family or caregiver to demonstrate understanding of therapeutic interventions to support the careof the patient. 8. Pt will tolerate progression towards upright with stable vital signs. MET Plan: Therapy Frequency (PT): 3-5 times/wk for therapy interventions as outlined in initial evaluation. Patient agrees with plan as stated. Time IN / OUT: 2416-5522 Total Minutes, Physical Therapy: 55 Margo Frazier, PT Pager: [phone] Physical Therapy Inpatient Rehabilitation Department Ela Lindsay, ALINA - 08/09/2021 9:06 AM EDT [facility] Medicine Daily Progress Note Admit Date: 07/21/2021 ( Hospital Day 19 days ) Active Hospital Problems Diagnosis ??? Right sided weakness ??? Right hemiplegia Resolved Hospital Problems No resolved problems to display. 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 He was admitted to hospital medicine with an MRI significant for evidence of brain lesion recurrence and enlargement of metastatic lesions. Given the extensive nature of metastasis as well as rapid growth of previously debulked tumor, surgical intervention was deferred, IV steroids were started, and the patient was started on whole brain radiation per Radiation Oncology (first session 07/22, fourteen sessions total, anticipated end-date08/10). Platelet count has downtrend since 07/06, HIT was negative. Patient was restarted on Lovenox 08/06. Platelets have now stabilized. ?? Patient is to complete whole brain radiation 08/10 and to then go to acute rehab after. PLAN: # Metastatic NSCLC # Brain mets - rapidly progressive # Right sided hemiplegia, acute - 2/2 rapidly progressive mets # Cerebral edema secondary to post-operative changes and secondary to metastatic disease # Worsening acute seizure activity / brain mets -MRI brain showed interval metastatic recurrence in 2 prior LT surgical beds with shifting edema, mild interval enlargement of 2 posterior RT frontal metastatic lesions and new sub-cm metastatic lesionin LT temporal lobe -Case discussed with neurosurgery, no surgical intervention necessary?? -Following risk benefit discussion with the patient and lack of evidence of reccurent seizure, seizure precautions were discontinued. Patient agreeable to reimplementation if seizures should reoccur.?? -Qshift neuro checks: ?-If acute twitching, would discuss with neurology immediately given concern for seizure and possible need for vEEG or Depakote load ?-If acute worsening of neuro exam, may then be candidate for Mannitol.- Neurology, neurosurgery, oncology, radiation oncology and palliative care consulted at time of admission -Whole brain radiation therapy x 14 planned sessions with last treatment tomorrow, 08/10 - PT/OT recommending rehab; okay for d/c once pt finishes last radiation treatment -Patient is fall risk, fall precautions -COMMUNICATION STUDIES PROFESSOR evaluation: regular diet -Goal SBP 90-160 -Seizure precautions -Keppra 1500mg BID -Ativan 0.5mg PRN seizures -Memantine 5 mg daily 7 days (07/30-08/05), then 5 mg BID 7 days, then 10 mg morning/5 mg evening for 7 days, then 10 mg BID thereafter for minimum six months -Decadron 4mg PO q6 with goal of TID dosing at the time of discharge -Deptkote 500 mg BID, last trough level 37 on 07/29 # Hyponatremia likely due to SIADH -stable -Urine studies consistent with SIADH -Fluid restriction 1.5L -Sodium chloride tablet 1g TID # Thrombocytopenia -Heparin antibody negative -Lovenox started 08/06 -CBC daily # CAD with h/o 4v CABG # HTN # HLD - Continue metoprolol 12.5mg BID -Continue atorvastatin 80mg nightly #FEN/PPx/Disposition - Fluids: None - Lines/bolivar: PIV - Nutrition: Regular diet - DVT PPx: Lovenox - GI PPx: Pantoprazole - Glycemic control: - Disposition: Rebab - Family support: Antonina, daughter, 08/09 - Code Status: Do NOT Attempt CPR - Inpatient Ela Lindsay APRN TEAM/PAGER: [phone] Subjective/24hr events: -Patient feeling well, eager to get out of the hospital and to rehab post-radiation -No acute overnight events ROS: Patient denies fevers, chills, nausea/vomiting, diarrhea/constipation, SOB/CP, dysuria. Vitals: Last value Range last 24 hrs Temperature Temp: 36.6 ??C (97.9 ??F) Temp: [36.4 ??C (97.5 ??F)-36.6 ??C (97.9 ??F)] Heart Rate Heart Rate: 63 Heart Rate: -- Blood Pressure BP: 124/67 BP: (108-136)/(57-69) Respiratory Rate Resp: 17 Resp: [17-18] SpO2 SpO2: 92 % SpO2: [90 %-92 %] Intake/Output Summary (Last 24 hours) at 08/09/2021 1232 Last data filed at 08/09/2021 0830 Gross per 24 hour Intake 190 ml Output 775 ml Net -585 ml EXAM GEN: Sitting upright in chair, on RA, breathing comfortably, NAD HEENT: at/nc, anicteric CV: RRR, no m/r/g PULM: CTABL, comfortable ABD: soft, nt/nd, nabs EXT: no edema Neuro: Alert/oriented/appropriate Skin: no rash LABS: Reviewed in eDH. Remarkable for the following: Recent Labs 08/08/21 0514 08/07/21 0200 WBC 16.5* 16.5* HGB 14.0 13.2* HCT 40.0* 38.6* PLATELET 114* 108* Recent Labs 08/08/21 0514 08/07/21 0200 NA 127* 129* K 4.7 4.8 CL 94* 95* CO2 25 26 BUN 23* 24* CREATININE 0.71* 0.76* CALCIUM 7.7* 7.8* No results for input(s): AST, ALT, ALKPHOS, BILITOT, BILIDIR in the last 72 hours. MICRO: No results for input(s): URINECULTURE in the last 720 hours. No results for input(s): BLOODCX in the last 720 hours. STUDIES: Results for orders placed or performed during the hospital encounter of 07/21/21 CT Head wo Contrast (Generic) (Exam End: 07/21/2021 11:08 AM) Impression Increased size of hyperdense metastases along both cerebral convexities. Increased left frontoparietal vasogenic edema, sulcal effacement and mass effect on the left lateral ventricle. Similar vasogenic edema surrounding the right frontal convexity lesions. Thank you for letting us participate in the care of this patient. If you are a health care provider and have any questions regarding this report, please contact the number below. For patients who have questions please contact the health lead caregiver that requested your imaging first. Electronically signed by: Debo Davies MD, [facility] ([phone]), at 07/21/2021 11:33 AM MRI Brain wwo Contrast (Generic) (Exam End: 07/21/2021 3:51 PM) Impression 1. 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 2. Mild interval enlargement of 2 posterior right frontal metastatic lesions and a new subcentimeter metastatic lesion in the anteromedial left temporal lobe. Thank you for letting us participate in the care of this patient. If you are a health care provider and have any questions regarding this report, please contact the number below. For patients who have questions please contact the health lead caregiver that requested your imaging first. Electronically signed by: Hemant Vanegas MD, [facility] ([phone]), at 07/21/2021 4:[address] Rad Onc Neuro Interp Only (Exam End: 07/22/2021 3:34 PM) Impression Expected findings. Thank you for letting us participate in the care of this patient. If you are a health care provider and have any questions regarding this report, please contact the number below. For patients who have questions please contact the health lead caregiver that requested your imaging first. Electronically signed by: Hemant Vanegas MD, [facility] ([phone]), at 07/22/2021 4:12 PM Medications: Scheduled Meds: ??? enoxaparin 40 mg Subcutaneous Nightly ??? melatonin 3 mg Oral Nightly ??? dexamethasone 4 mg Oral Q6H CORIN ??? memantine 5 mg Oral BID ??? [START ON 08/13/2021] memantine 10 mg Oral QAM And ??? [START ON 08/13/2021] memantine 5 mg Oral QPM ??? [START ON 08/20/2021] memantine 10 mg Oral BID ??? calcium carbonate 500 mg Oral BID ??? atorvastatin 80 mg Oral QPM ??? levETIRAcetam 1,500 mg Oral BID ??? metoprolol tartrate 12.5 mg Oral BID ??? pantoprazole EC 40 mg Oral Daily ??? sodium chloride 1 g Oral TID ??? sodium chloride 0.9 % (flush) 5 mL Intravenous BID ??? divalproex EC 500 mg Oral BID Continuous Infusions: PRN Meds:.carboxymethylcellulose, bisacodyL, acetaminophen, LORazepam, sodium chloride 0.9 % (flush), lidocaine Neumann, John Brown MD - 08/09/2021 7:23 AM EDT Hospital Medicine Attending Daily Progress Note Admit Date: 07/21/2021 ( Hospital Day 19 days ) Active Hospital Problems Diagnosis ??? Right sided weakness ??? Right hemiplegia Resolved Hospital Problems No resolved problems to display. ASSESSMENT: Ilir Laird is a 75y/o M with h/o metastatic NSCLC, including brain mets, who presented with right hemiplegia and seizure activity following recent d/c from rehab. MRI brain showed recurrence of brain lesions (s/p debulking on 06/30), enlargement and new mets. Neurosurgery deferred repeat debulking. Medical management including IV steroids and whole brain radiation per Rad/Onc initiated. Pt has regained a lot of strength in RUE and RLE since admission. Platelets were downtrending; HIT negative. Now stabilized. Possibly sequela of radiation therapy. Restarted Lovenox 08/06. Plan for patient to go to acute rehab after completion of whole brain radiation on 08/10. PLAN: # Metastatic NSCLC # Brain mets - rapidly progressive # Right sided hemiplegia, acute - 2/2 rapidly progressive mets # Cerebral edema secondary to post-operative changes and secondary to metastatic disease # Worsening acute seizure activity 2/2 brain mets - MRI brain showed interval metastatic recurrence in 2 prior LT surgical beds with shifting edema, mild interval enlargement of 2 posterior RT frontal metastatic lesions and new sub-cm metastatic lesion in LT temporal lobe - Case discussed with neurosurgery, no surgical intervention necessary - S/P Keppra load 1gm IV x1 - will now continue home Keppra at 1500mg BID - Ativan 0.5mg PRN seizures - following risk benefit discussion with the patient and lack of evidence of reccurent seizure, seizure precautions were discontinued. Patient agreeable to reimplementation if seizures should reoccur.?? - Fall risk- Fall precautions ordered?? - COMMUNICATION STUDIES PROFESSOR evaluation- cleared for regular diet?? - goal sbp 90-160 - deptkote 500 mg BID, last trough level 37 on 07/29 - Q shift neuro checks: ?- ??if acute twitching, would discuss with neurology immediately givenconcern for seizure and possible need for vEEG or Depakote load ?- if acute worsening of neuro exam, may then be candidate for Mannitol. Very poor candidate for surgery given aggressive nature of malignancy and number of lesions. Additionally concern about post-op swelling delaying radiation - Neurology, neurosurgery, oncology, radiation oncology and palliative care consulted at time of admission - decadron 4mg IV q 6 for 24 hours followed by 4mg PO q6 with goal of TID dosing at the time of discharge - Whole brain radiation therapy x 14 planned sessions with last treatment 08/10. - PT/OT recommending rehab; okay for d/c once pt finishes last radiation treatment - starting 07/30, memantine 5 mg daily 7 days, then 5 mg BID 7 days, then 10 mg morning/5 mg evening for 7 days, then 10 mg BID thereafter for minimum six months ?? 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 # Leukocytosis, chronic - stable - in setting of chronic steroid use - no sign of active infection ?? #Thrombocytopenia - stable - Heparin antibody negative - Started Lovnox sq on 08/06 given negative Heparin antibody - SCDs - daily hemogram ?? # CAD with h/o 4v CABG # HTN # HLD - Cont??Beta Cassie, and statin #FEN/PPx/Disposition - Nutrition: Regular diet - DVT PPx: Lovenox sq - GI PPx: PPI - Glycemic control: n/a - Disposition: Acute rehab when done with last radiation session - Code Status: Do NOT Attempt CPR - Inpatient IPI Certification I certify that I am a D-H credentialed attending provider with admitting privileges and that the patient meets or has met medical necessity to require an inpatient IPI level of care meeting a minimum of two midnights or is on the [facility] inpatient only procedure list (status C) due to: the patient has metInpatient IPI criteria and is awaiting rehabilitation or prison facility placement with active referrals in process John Neumann MD [facility] Medicine PAGER: [phone] Subjective/24hr events: No acute events overnight, no pain, sleeping comfortably, moving with assistance, had radiation therapy this morning, daughter at bedside ROS: Patient denies fevers, chills, nausea/vomiting, diarrhea/constipation, sob/cp, dysuria. Vitals: Last value Range last 24 hrs Temperature Temp: 36.5 ??C (97.7 ??F) Temp: [36.4 ??C (97.5 ??F)-36.7 ??C (98.1 ??F)] Heart Rate Heart Rate: 63 Heart Rate: -- Blood Pressure BP: 108/57 BP: (108-136)/(57-69) Respiratory Rate Resp: 18 Resp: [16-18] SpO2 SpO2: 91 % SpO2: [90 %-94 %] Intake/Output Summary (Last 24 hours) at 08/09/2021 0723 Last data filed at 08/08/2021 1718 Gross per 24 hour Intake 530 ml Output 575 ml Net -45 ml EXAM GEN: NAD, sitting up in a chair EXT: no edema Neuro: Alert/oriented/appropriate LABS: Reviewed in eDH. Remarkable for the following: Recent Labs 08/08/21 0514 08/07/21 0200 WBC 16.5* 16.5* HGB 14.0 13.2* HCT 40.0* 38.6* PLATELET 114* 108* Recent Labs 08/08/21 0514 08/07/21 0200 NA 127* 129* K 4.7 4.8 CL 94* 95* CO2 25 26 BUN 23* 24* CREATININE 0.71* 0.76* CALCIUM 7.7* 7.8* No results for input(s): AST, ALT, ALKPHOS, BILITOT, BILIDIR in the last 72 hours. MICRO: No results for input(s): URINECULTURE in the last 720 hours. No results for input(s): BLOODCX in the last 720 hours. STUDIES: ?? IMAGING: Results for orders placed or performed during the hospital encounter of 07/21/21 CT Head wo Contrast (Generic) (Exam End: 07/21/2021 11:08 AM) ?? Impression ?? Increased size of hyperdense metastases along both cerebral convexities. Increased left frontoparietal vasogenic edema, sulcal effacement and mass effect on the left lateral ventricle. Similar vasogenic edema surrounding the right frontal convexity lesions. ?? Thank you for letting us participate in the care of this patient. If you are a health care provider and have any questions regarding this report, please contact the number below. For patients who have questions please contact the health lead caregiver that requested your imaging first. Electronically signed by: Debo Davies MD, [facility] ([phone]), at 07/21/2021 11:33 AM MRI Brain wwo Contrast (Generic) (Exam End: 07/21/2021 3:51 PM) ?? Impression ?? 1. 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 2. Mild interval enlargement of 2 posterior right frontal metastatic lesions and a new subcentimeter metastatic lesion in the anteromedial left temporal lobe. ?? Thank you for letting us participate in the care of this patient. If you are a health care provider and have any questions regarding this report, please contact the number below. For patients who have questions please contact the health lead caregiver that requested your imaging first. Electronically signed by: Hemant Vanegas MD, [facility] ([phone]), at 07/21/2021 4:[address] Rad Onc Neuro Interp Only (Exam End: 07/22/2021 3:34 PM) ?? Impression ?? Expected findings. ?? Thank you for letting us participate in the care of this patient. If you are a health care provider and have any questions regarding this report, please contact the number below. For patients who have questions please contact the health lead caregiver that requested your imaging first. Electronically signed by: Hemant Vanegas MD, [facility] ([phone]), at 07/22/2021 4:12 PM Medications: Scheduled Meds: ??? enoxaparin 40 mg Subcutaneous Nightly ??? melatonin 3 mg Oral Nightly ??? dexamethasone 4 mg Oral Q6H CORIN ??? memantine 5 mg Oral BID ??? [START ON 08/13/2021] memantine 10 mg Oral QAM And ??? [START ON 08/13/2021] memantine 5 mg Oral QPM ??? [START ON 08/20/2021] memantine 10 mg Oral BID ??? calcium carbonate 500 mg Oral BID ??? atorvastatin 80 mg Oral QPM ??? levETIRAcetam 1,500 mg Oral BID ??? metoprolol tartrate 12.5 mg Oral BID ??? pantoprazole EC 40 mg Oral Daily ??? sodium chloride 1 g Oral TID ??? sodium chloride 0.9 % (flush) 5 mL Intravenous BID ??? divalproex EC 500 mg Oral BID Continuous Infusions: PRN Meds:.carboxymethylcellulose, bisacodyL, acetaminophen, LORazepam, sodium chloride 0.9 % (flush), lidocaine John Neumann MD - 08/08/2021 7:55 AM EDT Hospital Medicine Attending Daily Progress Note Admit Date: 07/21/2021 ( Hospital Day 18 days ) Active Hospital Problems Diagnosis ??? Right sided weakness ??? Right hemiplegia Resolved Hospital Problems No resolved problems to display. ASSESSMENT: Ilir Laird is a 75y/o M with h/o metastatic NSCLC, including brain mets, who presented with right hemiplegia and seizure activity following recent d/c from rehab. MRI brain showed recurrence of brain lesions (s/p debulking on 06/30), enlargement and new mets. Neurosurgery deferred repeat debulking. Medical management including IV steroids and whole brain radiation per Rad/Onc initiated. Pt has regained a lot of strength in RUE and RLE since admission. Platelets were downtrending; HIT negative. Now stabilized. Possibly sequela of radiation therapy. Restarted Lovenox 08/06. Plan for patient to go to acute rehab after completion of whole brain radiation on 08/10. PLAN: # Metastatic NSCLC # Brain mets - rapidly progressive # Right sided hemiplegia, acute - 2/2 rapidly progressive mets # Cerebral edema secondary to post-operative changes and secondary to metastatic disease # Worsening acute seizure activity 2/2 brain mets - MRI brain showed interval metastatic recurrence in 2 prior LT surgical beds with shifting edema, mild interval enlargement of 2 posterior RT frontal metastatic lesions and new sub-cm metastatic lesion in LT temporal lobe - Case discussed with neurosurgery, no surgical intervention necessary - S/P Keppra load 1gm IV x1 - will now continue home Keppra at 1500mg BID - Ativan 0.5mg PRN seizures - following risk benefit discussion with the patient and lack of evidence of reccurent seizure, seizure precautions were discontinued. Patient agreeable to reimplementation if seizures should reoccur.?? - Fall risk- Fall precautions ordered?? - COMMUNICATION STUDIES PROFESSOR evaluation- cleared for regular diet?? - goal sbp 90-160 - deptkote 500 mg BID, last trough level 37 on 07/29 - Q shift neuro checks: ?- ??if acute twitching, would discuss with neurology immediately givenconcern for seizure and possible need for vEEG or Depakote load ?- if acute worsening of neuro exam, may then be candidate for Mannitol. Very poor candidate for surgery given aggressive nature of malignancy and number of lesions. Additionally concern about post-op swelling delaying radiation - Neurology, neurosurgery, oncology, radiation oncology and palliative care consulted at time of admission - decadron 4mg IV q 6 for 24 hours followed by 4mg PO q6 with goal of TID dosing at the time of discharge - Whole brain radiation therapy x 14 planned sessions with last treatment 08/10. - PT/OT recommending rehab; okay for d/c once pt finishes last radiation treatment - starting 07/30, memantine 5 mg daily 7 days, then 5 mg BID 7 days, then 10 mg morning/5 mg evening for 7 days, then 10 mg BID thereafter for minimum six months ?? 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 # Leukocytosis, chronic - stable - in setting of chronic steroid use - no sign of active infection ?? #Thrombocytopenia - stable - Heparin antibody negative - Started Lovnox sq on 08/06 given negative Heparin antibody - SCDs - daily hemogram ?? # CAD with h/o 4v CABG # HTN # HLD - Cont??Beta Cassie, and statin #FEN/PPx/Disposition - Nutrition: Regular diet - DVT PPx: Lovenox sq - GI PPx: PPI - Glycemic control: n/a - Disposition: Acute rehab when done with last radiation session - Code Status: Do NOT Attempt CPR - Inpatient IPI Certification I certify that I am a D-H credentialed attending provider with admitting privileges and that the patient meets or has met medical necessity to require an inpatient IPI level of care meeting a minimum of two midnights or is on the [facility] inpatient only procedure list (status C) due to: the patient has metInpatient IPI criteria and is awaiting rehabilitation or prison facility placement with active referrals in process John Neumann MD [facility] Medicine PAGER: [phone] Subjective/24hr events: No acute events overnight, slept comfortably, awaiting final radiation this Sunday ROS: Patient denies fevers, chills, nausea/vomiting, diarrhea/constipation, sob/cp, dysuria. Vitals: Last value Range last 24 hrs Temperature Temp: 36.6 ??C (97.9 ??F) Temp: [36.3 ??C (97.4 ??F)-36.6 ??C (97.9 ??F)] Heart Rate Heart Rate: 63 Heart Rate: [63-65] Blood Pressure BP: 118/64 BP: (117-130)/(64-79) Respiratory Rate Resp: 17 Resp: [15-17] SpO2 SpO2: 95 % SpO2: [92 %-95 %] Intake/Output Summary (Last 24 hours) at 08/08/2021 0755 Last data filed at 08/07/2021 1600 Gross per 24 hour Intake 660 ml Output 200 ml Net 460 ml EXAM GEN: NAD, sitting up in bed HEENT: anicteric, perrl, op clear CV: rrr, no m/r/g PULM: cta b/l, comfortable ABD: soft, nt/nd EXT: no edema Neuro: Alert/oriented/appropriate LABS: Reviewed in eDH. Remarkable for the following: Recent Labs 08/08/2151308/07/21 0200 08/06/21 0329 WBC 16.5* 16.5* 17.7* HGB 14.0 13.2* 12.8* HCT 40.0* 38.6* 37.6* PLATELET 114* 108* 98* Recent Labs 08/08/2151308/07/21 0200 08/06/21 0329 NA 127* 129* 129* K 4.7 4.8 4.9 CL 94* 95* 99 CO2 25 26 22 BUN 23* 24* 26* CREATININE 0.71* 0.76* 0.74* GLUCOSE -- -- 116 CALCIUM 7.7* 7.8* 7.8* No results for input(s): AST, ALT, ALKPHOS, BILITOT, BILIDIR in the last 72 hours. MICRO: No results for input(s): URINECULTURE in the last 720 hours. No results for input(s): BLOODCX in the last 720 hours. STUDIES: ?? IMAGING: Results for orders placed or performed during the hospital encounter of 07/21/21 CT Head wo Contrast (Generic) (Exam End: 07/21/2021 11:08 AM) ?? Impression ?? Increased size of hyperdense metastases along both cerebral convexities. Increased left frontoparietal vasogenic edema, sulcal effacement and mass effect on the left lateral ventricle. Similar vasogenic edema surrounding the right frontal convexity lesions. ?? Thank you for letting us participate in the care of this patient. If you are a health care provider and have any questions regarding this report, please contact the number below. For patients who have questions please contact the health lead caregiver that requested your imaging first. Electronically signed by: Debo Davies MD, [facility] ([phone]), at 07/21/2021 11:33 AM MRI Brain wwo Contrast (Generic) (Exam End: 07/21/2021 3:51 PM) ?? Impression ?? 1. 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 2. Mild interval enlargement of 2 posterior right frontal metastatic lesions and a new subcentimeter metastatic lesion in the anteromedial left temporal lobe. ?? Thank you for letting us participate in the care of this patient. If you are a health care provider and have any questions regarding this report, please contact the number below. For patients who have questions please contact the health lead caregiver that requested your imaging first. Electronically signed by: Hemant Vanegas MD, [facility] ([phone]), at 07/21/2021 4:[address] Rad Onc Neuro Interp Only (Exam End: 07/22/2021 3:34 PM) ?? Impression ?? Expected findings. ?? Thank you for letting us participate in the care of this patient. If you are a health care provider and have any questions regarding this report, please contact the number below. For patients who have questions please contact the health lead caregiver that requested your imaging first. Electronically signed by: Hemant Vanegas MD, [facility] ([phone]), at 07/22/2021 4:12 PM Medications: Scheduled Meds: ??? enoxaparin 40 mg Subcutaneous Nightly ??? melatonin 3 mg Oral Nightly ??? dexamethasone 4 mg Oral Q6H CORIN ??? memantine 5 mg Oral BID ??? [START ON 08/13/2021] memantine 10 mg Oral QAM And ??? [START ON 08/13/2021] memantine 5 mg Oral QPM ??? [START ON 08/20/2021] memantine 10 mg Oral BID ??? calcium carbonate 500 mg Oral BID ??? atorvastatin 80 mg Oral QPM ??? levETIRAcetam 1,500 mg Oral BID ??? metoprolol tartrate 12.5 mg Oral BID ??? pantoprazole EC 40 mg Oral Daily ??? sodium chloride 1 g Oral TID ??? sodium chloride 0.9 % (flush) 5 mL Intravenous BID ??? divalproex EC 500 mg Oral BID Continuous Infusions: PRN Meds:.carboxymethylcellulose, bisacodyL, acetaminophen, LORazepam, sodium chloride 0.9 % (flush), lidocaine Mary Pizarro RN - 08/07/2021 4:18 PM EDT Assumed care of pt at 1500. No acute changes, no changes to neuro assessment. No needs vocalized attime time. Needs addressed. Flory Polo MD - 08/07/2021 7:32 AM EDT Hospital Medicine Attending Daily Progress Note Admit Date: 07/21/2021 ( Hospital Day 17 days ) Active Hospital Problems Diagnosis ??? Right sided weakness ??? Right hemiplegia Resolved Hospital Problems No resolved problems to display. ASSESSMENT: Ilir Laird is a 75y/o M with h/o metastatic NSCLC, including brain mets, who presented with right hemiplegia and seizure activity following recent d/c from rehab. MRI brain showed recurrence of brain lesions (s/p debulking on 06/30), enlargement and new mets. Neurosurgery deferred repeat debulking. Medical management including IV steroids and whole brain radiation per Rad/Onc initiated. Last session 08/10. Pt has regained a lot of strength in RUE and RLE since admission. Platelets were downtrending; HIT negative. Now stabilized. Possibly sequela of radiation therapy. Restarted Lovenox 08/06. Plan for patient to go to acute rehab after completion of whole brain radiation on 08/10. PLAN: # Metastatic NSCLC # Brain mets - rapidly progressive # Right sided hemiplegia, acute - 2/2 rapidly progressive mets # Cerebral edema secondary to post-operative changes and secondary to metastatic disease # Worsening acute seizure activity 2/2 brain mets - MRI brain showed interval metastatic recurrence in 2 prior LT surgical beds with shifting edema, mild interval enlargement of 2 posterior RT frontal metastatic lesions and new sub-cm metastatic lesion in LT temporal lobe - Case discussed with neurosurgery, no surgical intervention necessary - S/P Keppra load 1gm IV x1 - will now continue home Keppra at 1500mg BID - Ativan 0.5mg PRN seizures - Seizure precautions-following risk benefit discussion with the patient and lack of evidence of reccurent seizure, seizure precautions were discontinued. Patient agreeable to reimplementation if seizures should reoccur.?? - Fall risk- Fall precautions ordered?? - COMMUNICATION STUDIES PROFESSOR evaluation- cleared for regular diet?? - goal sbp 90-160 - deptkote 500 mg BID, last trough level 37 on 07/29 - Q4H neuro checks: ?- ??if acute twitching, would discuss with neurology immediately givenconcern for seizure and possible need for vEEG or Depakote load ?- if acute worsening of neuro exam, may then be candidate for Mannitol. Very poor candidate for surgery given aggressive nature of malignancy and number of lesions. Additionally concern about post-op swelling delaying radiation - Neurology, neurosurgery, oncology, radiation oncology and palliative care consulted at time of admission - decadron 4mg IV q 6 for 24 hours followed by 4mg PO q6 with goal of TID dosing at the time of discharge - Whole brain radiation therapy x 14 planned sessions with last treatment 08/10. - PT/OT recommending rehab; okay for d/c once pt finishes last radiation treatment - starting 07/30, memantine 5 mg daily 7 days, then 5 mg BID 7 days, then 10 mg morning/5 mg evening for 7 days, then 10 mg BID thereafter for minimum six months ?? 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 # Leukocytosis, chronic - stable - in setting of chronic steroid use - no sign of active infection ?? #Thrombocytopenia - stable - Heparin antibody negative - Started Lovnox sq on 08/06 given negative Heparin antibody - SCDs - daily hemogram ?? # CAD with h/o 4v CABG # HTN # HLD - Cont??Beta Cassie, and statin #FEN/PPx/Disposition - Nutrition: Regular diet - DVT PPx: Lovenox sq - GI PPx: PPI - Glycemic control: n/a - Disposition: Acute rehab when done with last radiation session - Code Status: Do NOT Attempt CPR - Inpatient IPI Certification I certify that I am a D-H credentialed attending provider with admitting privileges and that the patient meets or has met medical necessity to require an inpatient IPI level of care meeting a minimum of two midnights or is on the [facility] inpatient only procedure list (status C) due to: the patient has metInpatient IPI criteria and is awaiting rehabilitation or prison facility placement with active referrals in process Flory Polo MD [facility] Medicine PAGER: [phone] Subjective/24hr events: No acute events overnight Pt's daughters are coming to visit today ROS: Patient denies fevers, chills, nausea/vomiting, diarrhea/constipation, sob/cp, dysuria. Vitals: Last value Range last 24 hrs Temperature Temp: 36.8 ??C (98.2 ??F) Temp: [36.6 ??C (97.8 ??F)-36.8 ??C (98.2 ??F)] Heart Rate Heart Rate: 66 Heart Rate: [66] Blood Pressure BP: 116/61 BP: (98-129)/(61-77) Respiratory Rate Resp: 16 Resp: [16-18] SpO2 SpO2: 92 % SpO2: [92 %-95 %] Intake/Output Summary (Last 24 hours) at 08/07/2021 0732 Last data filed at 08/07/2021 0518 Gross per 24 hour Intake 480 ml Output 1050 ml Net -570 ml EXAM GEN: NAD, sitting up in bed HEENT: anicteric, perrl, op clear CV: rrr, no m/r/g PULM: cta b/l, comfortable ABD: soft, nt/nd EXT: no edema Neuro: Alert/oriented/appropriate Skin: no rash Lines/Tubes: PIV LABS: Reviewed in eDH. Remarkable for the following: Recent Labs 08/07/21 02008/06/2132808/05/21411 WBC 16.5* 17.7* 20.0* HGB 13.2* 12.8* 14.2 HCT 38.6* 37.6* 43.2 PLATELET 108* 98* 91* Recent Labs 08/07/21 02008/06/2132808/05/21411 NA 129* 129* 131* K 4.8 4.9 4.4 CL 95* 99 98 CO2 26 22 21* BUN 24* 26* 27* CREATININE 0.76* 0.74* 0.66* GLUCOSE -- 116 139 CALCIUM 7.8* 7.8* 7.8* No results for input(s): AST, ALT, ALKPHOS, BILITOT, BILIDIR in the last 72 hours. MICRO: No results for input(s): URINECULTURE in the last 720 hours. No results for input(s): BLOODCX in the last 720 hours. STUDIES: ECG: No results for input(s): DIAGLINE, QTCCALC in the last 720 hours. ?? VASCULAR: No results for input(s): VBTEXTRPT in the last 720 hours. ?? IMAGING: Results for orders placed or performed during the hospital encounter of 07/21/21 CT Head wo Contrast (Generic) (Exam End: 07/21/2021 11:08 AM) ?? Impression ?? Increased size of hyperdense metastases along both cerebral convexities. Increased left frontoparietal vasogenic edema, sulcal effacement and mass effect on the left lateral ventricle. Similar vasogenic edema surrounding the right frontal convexity lesions. ?? Thank you for letting us participate in the care of this patient. If you are a health care provider and have any questions regarding this report, please contact the number below. For patients who have questions please contact the health lead caregiver that requested your imaging first. Electronically signed by: Debo Davies MD, [facility] ([phone]), at 07/21/2021 11:33 AM MRI Brain wwo Contrast (Generic) (Exam End: 07/21/2021 3:51 PM) ?? Impression ?? 1. 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 2. Mild interval enlargement of 2 posterior right frontal metastatic lesions and a new subcentimeter metastatic lesion in the anteromedial left temporal lobe. ?? Thank you for letting us participate in the care of this patient. If you are a health care provider and have any questions regarding this report, please contact the number below. For patients who have questions please contact the health lead caregiver that requested your imaging first. Electronically signed by: Hemant Vanegas MD, [facility] ([phone]), at 07/21/2021 4:[address] Rad Onc Neuro Interp Only (Exam End: 07/22/2021 3:34 PM) ?? Impression ?? Expected findings. ?? Thank you for letting us participate in the care of this patient. If you are a health care provider and have any questions regarding this report, please contact the number below. For patients who have questions please contact the health lead caregiver that requested your imaging first. Electronically signed by: Hemant Vanegas MD, [facility] ([phone]), at 07/22/2021 4:12 PM Medications: Scheduled Meds: ??? enoxaparin 40 mg Subcutaneous Nightly ??? melatonin 3 mg Oral Nightly ??? dexamethasone 4 mg Oral Q6H CORNI ??? memantine 5 mg Oral BID ??? [START ON 08/13/2021] memantine 10 mg Oral QAM And ??? [START ON 08/13/2021] memantine 5 mg Oral QPM ??? [START ON 08/20/2021] memantine 10 mg Oral BID ??? calcium carbonate 500 mg Oral BID ??? atorvastatin 80 mg Oral QPM ??? levETIRAcetam 1,500 mg Oral BID ??? metoprolol tartrate 12.5 mg Oral BID ??? pantoprazole EC 40 mg Oral Daily ??? sodium chloride 1 g Oral TID ??? sodium chloride 0.9 % (flush) 5 mL Intravenous BID ??? divalproex EC 500 mg Oral BID Continuous Infusions: PRN Meds:.carboxymethylcellulose, bisacodyL, acetaminophen, LORazepam, sodium chloride 0.9 % (flush), lidocaine Lila Aguirre RN - 08/07/2021 5:42 AM EDT AOx4, VSS on RA. C/w R.sided weakness. Denies pain, no complaints overnight. Tolerating PO diet. Voiding in urinal. Plan to d/c to rehab after last radiation treatment 08/10. PHR. Flory Polo MD - 08/06/2021 7:37 AM EDT Hospital Medicine Attending Daily Progress Note Admit Date: 07/21/2021 ( Hospital Day 16 days ) Active Hospital Problems Diagnosis ??? Right sided weakness ??? Right hemiplegia Resolved Hospital Problems No resolved problems to display. ASSESSMENT: Ilir Laird is a 75y/o M with h/o metastatic NSCLC, including brain mets, who presented with right hemiplegia and seizure activity following recent d/c from rehab. MRI brain showed recurrence of brain lesions (s/p debulking on 06/30), enlargement and new mets. Neurosurgery deferred repeat debulking. Medical management including IV steroids and whole brain radiation per Rad/Onc initiated. Last session 08/10. Pt has regained a lot of strength in RUE and RLE since admission. Platelets downtrending; HIT negative. Possibly sequela of radiation therapy. Restarted Lovenox 08/06. Plan for patient to go to acute rehab after completion of whole brain radiation on 08/10. PLAN: # Metastatic NSCLC # Brain mets - rapidly progressive # Right sided hemiplegia, acute - 2/2 rapidly progressive mets # Cerebral edema secondary to post-operative changes and secondary to metastatic disease # Worsening acute seizure activity 2/2 brain mets - MRI brain showed interval metastatic recurrence in 2 prior LT surgical beds with shifting edema, mild interval enlargement of 2 posterior RT frontal metastatic lesions and new sub-cm metastatic lesion in LT temporal lobe - Case discussed with neurosurgery, no surgical intervention necessary - S/P Keppra load 1gm IV x1 - will now continue home Keppra at 1500mg BID - Ativan 0.5mg PRN seizures - Seizure precautions-following risk benefit discussion with the patient and lack of evidence of reccurent seizure, seizure precautions were discontinued. Patient agreeable to reimplementation if seizures should reoccur.?? - Fall risk- Fall precautions ordered?? - COMMUNICATION STUDIES PROFESSOR evaluation- cleared for regular diet?? - goal sbp 90-160 - deptkote 500 mg BID, last trough level 37 on 07/29 - Q4H neuro checks: ?- ??if acute twitching, would discuss with neurology immediately givenconcern for seizure and possible need for vEEG or Depakote load ?- if acute worsening of neuro exam, may then be candidate for Mannitol. Very poor candidate for surgery given aggressive nature of malignancy and number of lesions. Additionally concern about post-op swelling delaying radiation - Neurology, neurosurgery, oncology, radiation oncology and palliative care consulted at time of admission - decadron 4mg IV q 6 for 24 hours followed by 4mg PO q6 with goal of TID dosing at the time of discharge - Whole brain radiation therapy x 14 planned sessions with last treatment 08/10. - PT/OT recommending rehab; okay for d/c once pt finishes last radiation treatment - starting 07/30, memantine 5 mg daily 7 days, then 5 mg BID 7 days, then 10 mg morning/5 mg evening for 7 days, then 10 mg BID thereafter for minimum six months ?? 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 # Leukocytosis, chronic - stable - in setting of chronic steroid use - no sign of active infection ?? #Thrombocytopenia - Heparin antibody negative - Started Lovnox sq on 08/06 given negative Heparin antibody - SCDs - daily hemogram ?? # CAD with h/o 4v CABG # HTN # HLD - Cont??Beta Cassie, and statin #FEN/PPx/Disposition - Nutrition: Regular diet - DVT PPx: Lovenox sq - GI PPx: PPI - Glycemic control: n/a - Disposition: Acute rehab when done with last radiation session - Code Status: Do NOT Attempt CPR - Inpatient IPI Certification I certify that I am a [facility] credentialed attending provider with admitting privileges and that the patient meets or has met medical necessity to require an inpatient IPI level of care meeting a minimum of two midnights or is on the [facility] inpatient only procedure list (status C) due to: the patient has metInpatient IPI criteria and is awaiting rehabilitation or prison facility placement with active referrals in process Flory Polo MD [facility] Medicine PAGER: [phone] Subjective/24hr events: No acute events overnight Continues to improve with RLE and RUE strength ROS: Patient denies fevers, chills, nausea/vomiting, diarrhea/constipation, sob/cp, dysuria. Vitals: Last value Range last 24 hrs Temperature Temp: 36.6 ??C (97.9 ??F) Temp: [36.3 ??C (97.3 ??F)-36.7 ??C (98.1 ??F)] Heart Rate Heart Rate: 64 Heart Rate: -- Blood Pressure BP: 118/62 BP: (114-143)/(62-73) Respiratory Rate Resp: 16 Resp: [16-18] SpO2 SpO2: 95 % SpO2: [93 %-95 %] Intake/Output Summary (Last 24 hours) at 08/06/2021 0737 Last data filed at 08/06/2021 0426 Gross per 24 hour Intake 120 ml Output 1110 ml Net -990 ml EXAM GEN: NAD, laying in bed HEENT: anicteric, perrl, op clear CV: rrr, no m/r/g PULM: cta b/l, comfortable ABD: soft, nt/nd EXT: no edema Neuro: Alert/oriented/appropriate Skin: no rash Lines/Tubes: PIV LABS: Reviewed in eDH. Remarkable for the following: Recent Labs 08/06/2132808/05/21411 WBC 17.7* 20.0* HGB 12.8* 14.2 HCT 37.6* 43.2 PLATELET 98* 91* Recent Labs 08/06/2132808/05/2141108/04/21 0423 NA 129* 131* 133* K 4.9 4.4 4.8 CL 99 98 98 CO2 22 21* 26 BUN 26* 27* 28* CREATININE 0.74* 0.66* 0.69* GLUCOSE 116 139 131 CALCIUM 7.8* 7.8* 7.8* No results for input(s): AST, ALT, ALKPHOS, BILITOT, BILIDIR in the last 72 hours. MICRO: No results for input(s): URINECULTURE in the last 720 hours. No results for input(s): BLOODCX in the last 720 hours. STUDIES: ECG: No results for input(s): DIAGLINE, QTCCALC in the last 720 hours. ?? VASCULAR: No results for input(s): VBTEXTRPT in the last 720 hours. ?? IMAGING: Results for orders placed or performed during the hospital encounter of 07/21/21 CT Head wo Contrast (Generic) (Exam End: 07/21/2021 11:08 AM) ?? Impression ?? Increased size of hyperdense metastases along both cerebral convexities. Increased left frontoparietal vasogenic edema, sulcal effacement and mass effect on the left lateral ventricle. Similar vasogenic edema surrounding the right frontal convexity lesions. ?? Thank you for letting us participate in the care of this patient. If you are a health care provider and have any questions regarding this report, please contact the number below. For patients who have questions please contact the health lead caregiver that requested your imaging first. Electronically signed by: Debo Davies MD, [facility] ([phone]), at 07/21/2021 11:33 AM MRI Brain wwo Contrast (Generic) (Exam End: 07/21/2021 3:51 PM) ?? Impression ?? 1. 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 2. Mild interval enlargement of 2 posterior right frontal metastatic lesions and a new subcentimeter metastatic lesion in the anteromedial left temporal lobe. ?? Thank you for letting us participate in the care of this patient. If you are a health care provider and have any questions regarding this report, please contact the number below. For patients who have questions please contact the health lead caregiver that requested your imaging first. Electronically signed by: Hemant Vanegas MD, [facility] ([phone]), at 07/21/2021 4:[address] Rad Onc Neuro Interp Only (Exam End: 07/22/2021 3:34 PM) ?? Impression ?? Expected findings. ?? Thank you for letting us participate in the care of this patient. If you are a health care provider and have any questions regarding this report, please contact the number below. For patients who have questions please contact the health lead caregiver that requested your imaging first. Electronically signed by: Hemant Vanegas MD, [facility] ([phone]), at 07/22/2021 4:12 PM Medications: Scheduled Meds: ??? enoxaparin 40 mg Subcutaneous Nightly ??? melatonin 3 mg Oral Nightly ??? dexamethasone 4 mg Oral Q6H CORIN ??? memantine 5 mg Oral BID ??? [START ON 08/13/2021] memantine 10 mg Oral QAM And ??? [START ON 08/13/2021] memantine 5 mg Oral QPM ??? [START ON 08/20/2021] memantine 10 mg Oral BID ??? calcium carbonate 500 mg Oral BID ??? atorvastatin 80 mg Oral QPM ??? levETIRAcetam 1,500 mg Oral BID ??? metoprolol tartrate 12.5 mg Oral BID ??? pantoprazole EC 40 mg Oral Daily ??? sodium chloride 1 g Oral TID ??? sodium chloride 0.9 % (flush) 5 mL Intravenous BID ??? divalproex EC 500 mg Oral BID Continuous Infusions: PRN Meds:.carboxymethylcellulose, bisacodyL, acetaminophen, LORazepam, sodium chloride 0.9 % (flush), lidocaine Rosio Mcnally RN - 08/06/2021 4:25 AM EDT OUTCOME EVALUATION NOTE: OUTCOME SUMMARY: AOx4. VSS on RA. Denies pain. Neuro checks unchanged. R sided weakness cont. Voiding w/o difficulty using urinal/bedpan. BM x1. Meds given per orders. Bleeding and fall precautions maintained. Fluid restriction maintained. Safety rounds completed. PLAN MOVING FORWARD: Radiation Q4 NC Steroids INDIVIDUALIZED FALL PREVENTION INTERVENTIONS: Patient-specific fall risk factors per assessment: [current deficits]: R sided weakness, IV site Assistance [level of assistance required for transfers and ambulation]: 2A SP Supervision [direct monitoring required during toileting and ADLs]: Hands on Surveillance [continuous indirect monitoring]: Purposeful rounding, safety checks, call lozano within reach. Patient-specific fall prevention interventions for sensory deficits provided, if applicable: [X] Yes CARE PLAN GOAL OUTCOME EVALUATION: Margo Frazier, PT - 08/05/2021 2:00 PM EDT Physical Therapy Note Treatment Number PT: 6 Patient profile: Ilir Laird is a 75 y.o. 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 Presley Guerin MD with new (R) sided twitching and (R) hemiplegia. MRI brain with evidence of recurrence of brain mets and new lesions as well per hospital medicine team report. Given the extensive nature of metastasis as well as rapid growth of previously debulked tumor, surgical intervention was deferred, IV steroids were started, and the patient was started on whole brain radiation per Radiation Oncology (first session 07/22, fourteen sessions total, anticipated end-date 08/10).?? Interval History: no acute overnight events Social History: Ilir typically??lives??alone in a house in [place], [place] with his dog. Pt reports that he has a ramp to enter with bilateral rails. Pt has one level home with a basement. Pt reports thathe sleeps on the sofa at times. Pt has a tub/shower combo with GB.?? DME:??Walker, wheelchair?? Baseline ADL/Mobility:??Prior to admission;??Pt was at [facility] getting rehab s/p last hospital admission and then discharged home. Pt was home for one day prior to needing to return to hospital due to increased weakness in R hemibody. 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 Pt daughter Antonina, lives farther away, but is supportive. ?? Precautions/Special Considerations: DNR, high fall risk, high risk for skin breakdown, bleeding precautions, Maintain HOB elevation per Dr. Guerin, Maintain SBP 90-160, (R) sided weakness Lines: PIV Activity Orders: AAT Diet: Regular diet Mobility and Positioning Recommendations: ?? Pt to utilize FWW and assist x 2 for stand-pivot transfers with nursing. Pt needs R AFO and B shoes, one person must assist with lifting/moving RLE. Go towards L when able, pt can transfer both ways. Make sure chair is close to bed. ?? Up to chair for all meals. ?? Perform sit <> stands from EOB with FWW, R AFO, B shoes and Marimar x 1 (guard on R side) 3x throughout the day as many as pt can complete in 2 minutes, encourage nose over toes and rocking forward 3 times before standing. Subjective: I know yesterday really helped I can move my leg better today. Objective: Patient seen for physical therapy and demonstrated the following: Pain: no actual or suspected pain Vital Signs: on RA, VSS ?? Pt received supine in bed, agreeable to therapy ?? B shoes and R AFO dependently donned, on throughout session ?? Supine > sit: Marimar via handhold with HOB elevated and use of bedrails, hooks R LE with L LE toassist off bed, requires increased time and effort to complete ?? Bed > w/c: SPT toward L with FWW and Marimar; sit <> stand CGA with B UE support on FWW; requires assistance during transfer for R LE management d/t impaired strength and motor control; requires min verbal cues for technique ?? Pt dependently transported to therapy gym in w/c ?? Sit <> stands: multiple completed throughout session in parallel bars with heavy UE supportand CGA, utilized momentum strategy and required verbal cues for anterior lean/technique; pt demonstrates increased WB on L LE ?? Pt ambulated 16ft x 3 in parallel bars with 2 assist and R AFO, mirror in front for visual cues, required prolonged seated rest break between trials d/t fatigue; CGA x 1 at trunk and Marimar x 1 - assist required for R limb placement, pt able to advance R limb without physical assist however does not have motor control to place properly, CGA around R knee during stance to guard to prevent knee hyperextension or knee buckling ?? Pt ambulated 8ft in parallel bars backwards with 2 assist and R AFO; CGA x 1 at trunk and ModA x 1 for R limb advancement and CGA around R knee during stance to protect knee joint ?? Sit <> stand from w/c: with heavy B UE support on FWW and Marimar x 1, fair eccentric control ?? Pt ambulated 8ft; 8ft with FWW and 2 assist; MaxA x 1 and Marimar x 1 with close w/c follow; assist required for FWW management and R limb advancement; increased assist required d/t fatigue ?? Pt dependently transported to room in w/c ?? W/c > bed: SPT to R with FWW and MaxA; sit > stand with B UE support on FWW and ModA x 1, transfer required MaxA x 1 for R LE advancement, trunk support and FWW management, increased assist required d/t increased fatigue and going toward R ?? Sit > supine: Marimar x 1 for R LE management ?? Pt left supine in bed, all needs met, call marta in reach; RN updated following session Education: Pt educated on importance of getting into the chair for all meals to practice SPT, performing strength exercises daily, and continuation of gait training during therapy sessions to return toprior level function. Pt verbalized understanding and all questions were addressed. Assessment: Ilir Laird was seen today for physical therapy treatment. Pt was very pleasant and motivated to participate in therapy session. Session was focused on gait training to increase independence and safety during functional mobility. Pt demonstrates improved R limb advancement during ambulation in parallel bars with R AFO and only required Marimar for appropriate placement d/t impaired motor control/coordination. Pt also demonstrated improved ambulation distance in parallel bars and incorporated turning into session. Pt still has increased difficulty with multi-directional stepping (turning, backwards) which increases difficulty of transfers. Pt continues to demonstrate impaired R UE/LE strength, R LE motor control/coordination, R LE sensation, standing balance, activity tolerance and endurance. Pt is an excellent candidate for acute rehab d/t high motivation, able to tolerate 3 hours of therapy per day, good social supports and has demonstrated steady improvements since admission. Pt requires discharge to acute rehab facility to address impairments, goals and for safe discharge home. Plan to focus on ambulation in different directions in parallel bars (side stepping, forwards/backwardswalking), obstacle negotiation and transference to ambulation with FWW. Discharge Recommendations: Based on the current findings, Anticipated Discharge Disposition (PT): acute rehabilitation facilitywhen medically ready for hospital discharge. Consult Recommendations: No other consults recommended at this time. Equipment needs: Anticipated Equipment Needs at Discharge (PT): to be determined Goals: To be achieved by 08/10/21: ONGOING, unless otherwise stated 1. Pt. to demonstrate knowledge of safety limitations and precautions and will appropriately requestassistance for functional activities and to mobilize. 2. Pt. to demonstrate understanding of appropriate seated LE exercises. MET 3. Pt to participate in standardized balance assessment. 4. Pt. to perform bed mobility independently from flat bed. 5. Pt. to perform SPT with FWW and R AFO independently. 6. Pt. to ambulate 75ft with FWW and R AFO independently. 7. Family or caregiver to demonstrate understanding of therapeutic interventions to support the careof the patient. 8. Pt will tolerate progression towards upright with stable vital signs. MET Plan: Therapy Frequency (PT): 3-5 times/wk for therapy interventions as outlined in initial evaluation. Patient agrees with plan as stated. Time IN / OUT: 3700-2945 Total Minutes, Physical Therapy: 55 Margo Frazier, PT Pager: [phone] Physical Therapy Inpatient Rehabilitation Department Ji Blanco MD - 08/05/2021 1:01 PM EDT [facility] Medicine Daily Progress Note Admit Date: 07/21/2021 Hospital Day 15 days Active Hospital Problems Diagnosis ??? Right sided weakness ??? Right hemiplegia Resolved Hospital Problems No resolved problems to display. 24 Hour Events: - no issues, feels great ROS: ??Denies fever, chills, malaise, PINEDA, lightheadedness, chest pain, palpitations, SOB, dyspnea, N/V/D,constipation, dysuria, flank pain, edema?? Physical Exam Vitals Range last 24 hrs Temperature Temp: [36.3 ??C (97.3 ??F)-36.6 ??C (97.9 ??F)] Heart Rate Heart Rate: [64] Blood Pressure BP: (121-144)/(63-75) Respiratory Rate Resp: [16] SpO2 SpO2: [93 %-96 %] Intake/Output Summary (Last 24 hours) at 08/05/2021 1302 Last data filed at 08/05/2021 0800 Gross per 24 hour Intake 360 ml Output 925 ml Net -565 ml No data found. BMI: Weight: 79.4 kg (175 lb) (07/21/21 1039) BMI (Calculated): 26.61 BMI Classification: Over Weight Estimated Creatinine Clearance: 95 mL/min (A) (based on SCr of 0.66 mg/dL (L)). CONSTITUTIONAL:??Patient is an elderly appearing gentleman,??sitting comfortably in bedside chair HEENT:??Mucous membranes moist. NECK: No elevation in JVP appreciated.?? CHEST:??S1S2, RRR, no murmurs, rubs, clicks.?? LUNGS:??no crackles or wheezing ABDOMEN:??non-tender to palpation EXTREMITIES:??Radial pulses +2, equal, and symmetric. SKIN:??Warm and dry to touch.?? NEURO:??Right pupil slightly larger than left. Reactive equally to light. Alert and oriented x4. Right sided hemiplegia most notable in right upper extremity. Supervisor Particleboard strength now 5/5 on R and 5/5 of left. R arm flexion/extension 5/5. Right ankle dorsiflexion and extension 3/5. Left ankle dorsiflexion and extension 4/5. Able to raise both arms parallel though unable to control return to midline of R arm. PSYCH:??Affect pleasant. Patient cooperative. Speech pattern and speed appropriate.?? Studies reviewed in eDH. Remarkable for the following: LABS: Recent Labs 08/05/2141108/01/2131107/30/21 0847 WBC 20.0* 18.8* 16.1* HGB 14.2 13.6* 14.3 HCT 43.2 39.5* 42.6 PLATELET 91* 125* 136* Recent Labs 08/05/2141108/04/21 0423 08/03/21 1030 NA 131* 133* 131* K 4.4 4.8 4.7 CL 98 98 97* CO2 21* 26 23 BUN 27* 28* 27* CREATININE 0.66* 0.69* 0.80 No results for input(s): AST, ALT, ALKPHOS, BILITOT, BILIDIR in the last 168 hours. Recent Labs 08/05/2141108/04/2142208/03/21 1030 CALCIUM 7.8* 7.8* 7.8* No results for input(s): PT, INR, PTT in the last 168 hours. No results for input(s): CK, TROPONINT in the last 168 hours. FSBG Trend No results for input(s): POCGLU in the last 72 hours. MICRO: No results for input(s): URINECULTURE in the last 720 hours. No results for input(s): GRAMSTAIN, BFCX, LOWERRESPCX, TISSUECX in the last 720 hours. No results for input(s): BLOODCX in the last 720 hours. ECG: No results for input(s): DIAGLINE, QTCCALC in the last 720 hours. VASCULAR: No results for input(s): VBTEXTRPT in the last 720 hours. IMAGING: Results for orders placed or performed during the hospital encounter of 07/21/21 CT Head wo Contrast (Generic) (Exam End: 07/21/2021 11:08 AM) Impression Increased size of hyperdense metastases along both cerebral convexities. Increased left frontoparietal vasogenic edema, sulcal effacement and mass effect on the left lateral ventricle. Similar vasogenic edema surrounding the right frontal convexity lesions. Thank you for letting us participate in the care of this patient. If you are a health care provider and have any questions regarding this report, please contact the number below. For patients who have questions please contact the health lead caregiver that requested your imaging first. Electronically signed by: Debo Davies MD, [facility] ([phone]), at 07/21/2021 11:33 AM MRI Brain wwo Contrast (Generic) (Exam End: 07/21/2021 3:51 PM) Impression 1. 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 2. Mild interval enlargement of 2 posterior right frontal metastatic lesions and a new subcentimeter metastatic lesion in the anteromedial left temporal lobe. Thank you for letting us participate in the care of this patient. If you are a health care provider and have any questions regarding this report, please contact the number below. For patients who have questions please contact the health lead caregiver that requested your imaging first. Electronically signed by: Hemant Vanegas MD, [facility] ([phone]), at 07/21/2021 4:[address] Rad Onc Neuro Interp Only (Exam End: 07/22/2021 3:34 PM) Impression Expected findings. Thank you for letting us participate in the care of this patient. If you are a health care provider and have any questions regarding this report, please contact the number below. For patients who have questions please contact the health lead caregiver that requested your imaging first. Electronically signed by: Hemant Vanegas MD, [facility] ([phone]), at 07/22/2021 4:12 PM Inpatient Medications: Scheduled ??? melatonin 3 mg Oral Nightly ??? dexamethasone 4 mg Oral Q6H CORIN ??? [START ON 08/06/2021] memantine 5 mg Oral BID ??? [START ON 08/13/2021] memantine 10 mg Oral QAM And ??? [START ON 08/13/2021] memantine 5 mg Oral QPM ??? [START ON 08/20/2021] memantine 10 mg Oral BID ??? calcium carbonate 500 mg Oral BID ??? atorvastatin 80 mg Oral QPM ??? levETIRAcetam 1,500 mg Oral BID ??? metoprolol tartrate 12.5 mg Oral BID ??? pantoprazole EC 40 mg Oral Daily ??? sodium chloride 1 g Oral TID ??? sodium chloride 0.9 % (flush) 5 mL Intravenous BID ??? divalproex EC 500 mg Oral BID Continuous infusions: PRN: carboxymethylcellulose, bisacodyL, acetaminophen, LORazepam, sodium chloride 0.9 % (flush), lidocaine Assessment: Mr. 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 He was admitted to hospital medicine with an MRI significant for evidence of brain lesion recurrence and enlargement of metastatic lesions. Given the extensive nature of metastasis as well as rapid growth of previously debulked tumor,surgical intervention was deferred, IV steroids were started, and the patient was started on whole brain radiation per Radiation Oncology (first session 07/22, fourteen sessions total, anticipated end-date 08/10). Platelet ??count has steadily trended down since ~07/06. Count today is 91. No bleeding or thrombosis sequelae noted. He actually has a leukocytosis and no anemia, so the only affected cell line is platelets. This may be due to radiation therapy affect. We also considered HIT, given intermediate probability 4T score we are checking for heparin antibodies and will stop heparin. I suspect we should have this result back from now, as such we won't start bivalirudin today. If heparin antibody test is delayed past tomorrow (or if the result is positive), this should be started given underlying thrombosis risk from active malignancy. Regarding the leukocytosis, he has no infectious signs and symptoms, as such I presume this is steroid induced de-margination. ?? Plan:?? # Metastatic NSCLC # Brain mets - rapidly progressive # Right sided hemiplegia, acute - 2/2 rapidly progressive mets # Cerebral edema secondary to post-operative changes and secondary to metastatic disease # Worsening acute seizure activity 2/2 brain mets - MRI brain showed interval metastatic recurrence in 2 prior LT surgical beds with shifting edema, mild interval enlargement of 2 posterior RT frontal metastatic lesions and new sub-cm metastatic lesion in LT temporal lobe - Case discussed with neurosurgery, no surgical intervention necessary - S/P Keppra load 1gm IV x1 - will now continue home Keppra at 1500mg BID - Ativan 0.5mg PRN seizures - Seizure precautions-following risk benefit discussion with the patient and lack of evidence of reccurent seizure, seizure precautions were discontinued. Patient agreeable to reimplementation if seizures should reoccur.?? - Fall risk- Fall precautions ordered?? - COMMUNICATION STUDIES PROFESSOR evaluation- cleared for regular diet?? - goal sbp 90-160 - depatkoe 500 mg BID, last trough level 37 on 07/29 - Q4H neuro checks: ?- ??if acute twitching, would discuss with neurology immediately givenconcern for seizure and possible need for vEEG or Depakote load ?- if acute worsening of neuro exam, may then be candidate for Mannitol. Very poor candidate for surgery given aggressive nature of malignancy and number of lesions. Additionally concern about post-op swelling delaying radiation - Neurology, neurosurgery, oncology, radiation oncology and palliative input greatly appreciated - decadron 4mg IV q 6 for 24 hours followed by 4mg PO q6 with goal of TID dosing at the time of discharge - Will start whole brain radiation therapy today for 14 planned sessions - anticipate completion near [facility] if pt otherwise medically ready for discharge and cleared for home; if requires rehab, anticipate would complete course here. - Given GOC as above, will engage PT/OT. 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 # Leukocytosis, chronic - stable - in setting of chronic steroid use - no sign of active infection ?? #Thrombocytopenia - f/u heparin antibody - stop unfractionated heparin injections, if no heparin antibody result by 08/06, start bivalirudin - SCDs - daily hemogram # CAD with h/o 4v CABG # HTN # HLD - Cont??Beta Cassie, and statin IV access/ MIVF PIV Tubes/ Drains N/A DVT prophylaxis Heparin PT/OT/COMMUNICATION STUDIES PROFESSOR ordered Wound care N/A Anticipated Disposition TBD Team Pager ( Coverage 02/10): [phone] Family Update Daughter Sandro in person 08/05 PCP Myriam Riggins MD SHARED VISIT n/a I have examined the patient myself and personally reviewed all studies. 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 male Reason for intervention: hospital day 9 Nutrition Plan: Continue current diet Maintain good po intake Obtain updated wt (last documented from 07/21) Tums noted Pt endorses good appetite. Pt declined snacks at this time, states he asks his RN when he wants something. Active Orders Diet Regular diet Frequency: Effective Now Number of Occurrences: Until Specified Admit Weight: 79.38 kg Estimated body mass index is 26.61 kg/m?? as calculated from the following: Height as of this encounter: 172.7 cm (5' 8). Weight as of this encounter: 79.4 kg (175 lb). Wt Readings from Last 5 Encounters: 07/21/21 79.4 kg (175 lb) 07/04/21 75.8 kg (167 lb 1.7 oz) 06/30/21 75.7 kg (166 lb 14.2 oz) Weight loss: none - per pt Appetite: Excellent (75%-100%) - per pt and chart Food allergies:no known food allergies - per pt Chewing/Swallowing difficulty: none - per pt Nausea/Vomiting: no nausea and no vomiting - per pt Last Bowel Movement: 08/04/21 Patient education / questions: pt had no questions at this time Nutrition services to follow weekly through hospital course unless consulted in the interim. Aziza Mccormack DTR Stephanie Bird APRN - 08/05/2021 12:02 PM EDT [facility] Medicine Daily Progress Note Admit Date: 07/21/2021 Hospital Day 15 days Active Hospital Problems Diagnosis ??? Right sided weakness ??? Right hemiplegia Resolved Hospital Problems No resolved problems to display. 24 Hour Events: -No acute overnight events -Patient seen and evaluated in person at bedside -Labs notable for thrombocytopenia to 91 -Leida, daughter, at bedside throughout morning -Reports he slept somewhat better last night -Looking forward to working with PT today ROS: Denies fever, chills, malaise, PINEDA, lightheadedness, chest pain, palpitations, SOB, dyspnea, N/V/D, constipation, dysuria, flank pain, edema, or unusual bleeding Physical Exam Vitals Range last 24 hrs Temperature Temp: [36.3 ??C (97.3 ??F)-36.6 ??C (97.9 ??F)] Heart Rate Heart Rate: [64] Blood Pressure BP: (121-144)/(63-75) Respiratory Rate Resp: [16] SpO2 SpO2: [93 %-96 %] Intake/Output Summary (Last 24 hours) at 08/05/2021 1203 Last data filed at 08/05/2021 0800 Gross per 24 hour Intake 360 ml Output 925 ml Net -565 ml No data found. BMI: Weight: 79.4 kg (175 lb) (07/21/21 1039) BMI (Calculated): 26.61 BMI Classification: Over Weight Estimated Creatinine Clearance: 95 mL/min (A) (based on SCr of 0.66 mg/dL (L)). CONSTITUTIONAL:??Patient is an elderly appearing gentleman,??sitting??comfortably in bed??upon entering room.??No acute distress. Breathing comfortably on room air??and able to communicate in full sentences.?? HEENT:??Normocephalic, atraumatic. Bilateral sclera anicteric and without injection. No conjunctivalexudate or injection.??Right eyelid with mild inversion but without evidence of trauma to surrounding eye tissues. Slight periorbital edema noted.??Mucous membranes moist. NECK: Trachea midline, no evidence of thyromegaly. No elevation in JVP appreciated.?? CHEST:??S1S2, RRR, no murmurs, rubs, clicks.?? LUNGS:??Respiratory effort and expansion good, equal, and symmetric bilaterally. Bilateral lung sherwood clear to auscultation with no adventitious sounds noted.?? ABDOMEN:??Round, soft, non-tender to palpation. Bowel sounds normoactive throughout. No masses or hepatosplenomegaly noted.?? EXTREMITIES:??Distal extremities warm and well perfused x4. Radial pulses +2, equal, and symmetric. Pedal pulses +1, equal, and symmetric.?? SKIN:??Warm and dry to touch.?? NEURO:??Right pupil slightly larger than left. Reactive equally to light. EOMI. Alert and oriented x4. Right sided hemiplegia most notable in right lower extremity. Supervisor Particleboard strength??now 5/5 on R and 5/5 of left. Right dorsiflexion and extension 3-4/5. No change from baseline findings. Left dorsiflexion and extension 5/5. No additional focal deficit noted.?? PSYCH:??Affect pleasant. Patient cooperative. Speech pattern and speed appropriate.?? Studies reviewed in eDH. Remarkable for the following: LABS: Recent Labs 08/05/21 0412 08/01/21 0312 07/30/21 0847 WBC 20.0* 18.8* 16.1* HGB 14.2 13.6* 14.3 HCT 43.2 39.5* 42.6 PLATELET 91* 125* 136* Recent Labs 08/05/212 08/04/21 0423 08/03/21 1030 NA 131* 133* 131* K 4.4 4.8 4.7 CL 98 98 97* CO2 21* 26 23 BUN 27* 28* 27* CREATININE 0.66* 0.69* 0.80 No results for input(s): AST, ALT, ALKPHOS, BILITOT, BILIDIR in the last 168 hours. Recent Labs 08/05/2141108/04/2142208/03/21 1030 CALCIUM 7.8* 7.8* 7.8* No results for input(s): PT, INR, PTT in the last 168 hours. No results for input(s): CK, TROPONINT in the last 168 hours. FSBG Trend No results for input(s): POCGLU in the last 72 hours. MICRO: No results for input(s): URINECULTURE in the last 720 hours. No results for input(s): GRAMSTAIN, BFCX, LOWERRESPCX, TISSUECX in the last 720 hours. No results for input(s): BLOODCX in the last 720 hours. ECG: No results for input(s): DIAGLINE, QTCCALC in the last 720 hours. VASCULAR: No results for input(s): VBTEXTRPT in the last 720 hours. IMAGING: Results for orders placed or performed during the hospital encounter of 07/21/21 CT Head wo Contrast (Generic) (Exam End: 07/21/2021 11:08 AM) Impression Increased size of hyperdense metastases along both cerebral convexities. Increased left frontoparietal vasogenic edema, sulcal effacement and mass effect on the left lateral ventricle. Similar vasogenic edema surrounding the right frontal convexity lesions. Thank you for letting us participate in the care of this patient. If you are a health care provider and have any questions regarding this report, please contact the number below. For patients who have questions please contact the health lead caregiver that requested your imaging first. Electronically signed by: Debo Davies MD, [facility] ([phone]), at 07/21/2021 11:33 AM MRI Brain wwo Contrast (Generic) (Exam End: 07/21/2021 3:51 PM) Impression 1. 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 2. Mild interval enlargement of 2 posterior right frontal metastatic lesions and a new subcentimeter metastatic lesion in the anteromedial left temporal lobe. Thank you for letting us participate in the care of this patient. If you are a health care provider and have any questions regarding this report, please contact the number below. For patients who have questions please contact the health lead caregiver that requested your imaging first. Electronically signed by: Hemant Vanegas MD, [facility] ([phone]), at 07/21/2021 4:[address] Rad Onc Neuro Interp Only (Exam End: 07/22/2021 3:34 PM) Impression Expected findings. Thank you for letting us participate in the care of this patient. If you are a health care provider and have any questions regarding this report, please contact the number below. For patients who have questions please contact the health lead caregiver that requested your imaging first. Electronically signed by: Hemant Vanegas MD, [facility] ([phone]), at 07/22/2021 4:12 PM Inpatient Medications: Scheduled ??? melatonin 3 mg Oral Nightly ??? dexamethasone 4 mg Oral Q6H CORIN ??? [START ON 08/06/2021] memantine 5 mg Oral BID ??? [START ON 08/13/2021] memantine 10 mg Oral QAM And ??? [START ON 08/13/2021] memantine 5 mg Oral QPM ??? [START ON 08/20/2021] memantine 10 mg Oral BID ??? calcium carbonate 500 mg Oral BID ??? atorvastatin 80 mg Oral QPM ??? levETIRAcetam 1,500 mg Oral BID ??? metoprolol tartrate 12.5 mg Oral BID ??? pantoprazole EC 40 mg Oral Daily ??? sodium chloride 1 g Oral TID ??? sodium chloride 0.9 % (flush) 5 mL Intravenous BID ??? divalproex EC 500 mg Oral BID Continuous infusions: PRN: carboxymethylcellulose, bisacodyL, acetaminophen, LORazepam, sodium chloride 0.9 % (flush), lidocaine Assessment: ?? Mr. 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 He was admitted to hospital medicine with an MRI significant for evidence of brain lesion recurrence and enlargement of metastatic lesions. Given the extensive nature of metastasis as well as rapid growth of previously debulked tumor,surgical intervention was deferred, IV steroids were started, and the patient was started on whole brain radiation per Radiation Oncology (first session 07/22??through??08/10??for fourteen sessions).? Following discussion with Dr. Laura, will begin to wean IV steroids to eventual oral taper. Plan to transition to 4mg IV q 6 for 24 hours followed by 4mg PO q6 with goal of TID dosing at the time ofdischarge.? Interval History: New onset thrombocytopenia noted with AM labs. Currently receiving anticoagulation with Heparin so possibly related to heparin induced thrombocytopenia but could relate to cancer treatment modalities. Will test for heparin induced platelet antibodies and hold prophylactic heparin for now. If results delay of testing delay would initiate Bivalirudin no later than tomorrow given increased risk of thrombosis. Discussed patient's understanding of disease process and prognosis. Wishes to continue moving forward day by day with one definitive goal of not dying while hospitalized. Will continue to plan for discharge to [facility] next week. Plan: # Metastatic NSCLC # Brain mets - rapidly progressive # Right sided hemiplegia, acute - 2/2 rapidly progressive mets # Swelling of brain, post-operative changes and 2/2 mets # Worsening acute seizure activity 2/2 brain mets - MRI brain showed interval metastatic recurrence in 2 prior LT surgical beds with shifting edema, mild interval enlargement of 2 posterior RT frontal metastatic lesions and new sub-cm metastatic lesion in LT temporal lobe - Case discussed with neurosurgery who recommended Decadron 10mg IVx1 followed by 6mg Q6H IV - S/P Keppra load 1gm IV x1 - will now continue home Keppra at 1500mg BID - Ativan 0.5mg PRN seizures - Seizure precautions-following risk benefit discussion with the patient and lack of evidence of reccurent seizure, seizure precautions were discontinued. Patient agreeable to reimplementation if seizures should reoccur.?? - Fall risk- Fall precautions ordered?? - COMMUNICATION STUDIES PROFESSOR evaluation- cleared for regular diet?? - Cont home sodium tablets- previously worked up hyponatremia as SIADH - goal sbp 90-160 - Q4H neuro checks: ?- ??if acute twitching, would discuss with neurology immediately givenconcern for seizure and possible need for vEEG or Depakote load ?- if acute worsening of neuro exam, may then be candidate for Mannitol. Very poor candidate for surgery given aggressive nature of malignancy and number of lesions. Additionally concern about post-op swelling delaying radiation - Neurology, neurosurgery, oncology, radiation oncology and palliative input greatly appreciated -??Wean IV steroids to 4mg q 6 hours x24 hours (08/02) - Further weaning of steroids to 4mg PO dexamethasone q6 (08/03)- reduce to TID 08/08-08/09 - Will start whole brain radiation therapy today for 14 planned sessions - anticipate completion near [facility] if pt otherwise medically ready for discharge and cleared for home; if requires rehab, anticipate would complete course here. -Titrate Memantine for prophylactic protection in the setting of whole brain radiation?? - Given GOC as above, will engage PT/OT. ?? # Leukocytosis, chronic - stable # Thrombocytopenia - in setting of chronic steroid use - no sign of active infection -Hold anticoagulation with Heparin -Draw Heparin induced platelet antibodies -Start Bivalirudin no later than tomorrow if pending results, SCDs in meantime ?? # CAD with h/o 4v CABG # HTN # HLD - Cont??Beta Cassie, and statin ?? IV access/ MIVF PIV Tubes/ Drains N/A DVT prophylaxis SCDs PT/OT/COMMUNICATION STUDIES PROFESSOR ordered Wound care N/A Anticipated Disposition Acute Rehab Team Pager ( Coverage 02/10): [phone] Family Update Daughter, Mallory, updated at bedside PCP Myriam Riggins MD SHARED VISIT This patient was seen in conjunction with Dr. Ji Blanco as part of a shared visit. Stephanie Bird, ROLLER REPAIRER 08/05/2021 Margo Frazier, PT - 08/04/2021 3:20 PM EDT Physical Therapy Note Treatment Number PT: 5 Patient profile: Ilir Laird is a 75 y.o. 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 Presley Guerin MD with new (R) sided twitching and (R) hemiplegia. MRI brain with evidence of recurrence of brain mets and new lesions as well per hospital medicine team report. Given the extensive nature of metastasis as well as rapid growth of previously debulked tumor, surgical intervention was deferred, IV steroids were started, and the patient was started on whole brain radiation per Radiation Oncology (first session 07/22, fourteen sessions total, anticipated end-date 08/10).?? Interval History: no acute overnight events Social History: Ilir typically??lives??alone in a house in [place], [place] with his dog. Pt reports that he has a ramp to enter with bilateral rails. Pt has one level home with a basement. Pt reports thathe sleeps on the sofa at times. Pt has a tub/shower combo with GB.?? DME:??Walker, wheelchair?? Baseline ADL/Mobility:??Prior to admission;??Pt was at [facility] getting rehab s/p last hospital admission and then discharged home. Pt was home for one day prior to needing to return to hospital due to increased weakness in R hemibody. 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 Pt daughter Antonina, lives farther away, but is supportive. ?? Precautions/Special Considerations: DNR, high fall risk, high risk for skin breakdown, bleeding precautions, Maintain HOB elevation per Dr. Guerin, Maintain SBP 90-160, (R) sided weakness Lines: PIV Activity Orders: AAT Diet: Regular diet Mobility and Positioning Recommendations: ?? Pt to utilize FWW and assist x 2 for stand-pivot transfers with nursing. Pt needs R AFO and B shoes, one person must assist with lifting/moving RLE. Go towards L when able, pt can transfer both ways. Make sure chair is close to bed. ?? Up to chair for all meals. ?? Perform sit <> stands from EOB with FWW, R AFO, B shoes and Marimar x 1 (guard on R side) 3x throughout the day as many as pt can complete in 2 minutes, encourage nose over toes and rocking forward 3 times before standing. Subjective: I am just glad to get out of that bed. I have to keep using my leg to get it stronger, if I don't use it I will lose it. Objective: Patient seen for physical therapy and demonstrated the following: Pain: no actual or suspected pain Vital Signs: on RA, VSS ?? Pt received supine in bed, agreeable to therapy ?? B shoes and R AFO dependently donned, on throughout session ?? Supine > sit: Marimar via handhold with HOB elevated and use of bedrails, hooks R LE with L LE toassist off bed, requires increased time and effort to complete ?? Bed > w/c: SPT toward L with FWW and Marimar; requires assistance for R LE management d/t impaired strength and motor control; requires mod verbal cues for technique ?? Pt dependently transported to therapy gym in w/c ?? Sit <> stands: multiple completed throughout session in parallel bars with heavy UE supportand CGA-Marimar, utilized momentum strategy and required verbal cues for anterior lean/technique; pt demonstrates increased WB on L LE ?? Pt ambulated 8ft x 2 in parallel bars with 2 assist and R AFO, required prolonged seated rest break between trials d/t fatigue; CGA x 1 at trunk and Min-ModA x 1 - assist required for R limb advancement and facilitation of R hip extension, initially pt demonstrated posterior trunk lean during L limb advancement, with multimodal cues pt demonstrated good carryover in session ?? Pt dependently transported back to room in w/c ?? Sit <> stand from w/c: with heavy B UE support on FWW and ModA x 1 d/t fatigue, fair eccentric control ?? Pt ambulated 8ft with FWW and 2 assist; ModA x 1 and Marimar x 1; assist required for FWW managementand R limb advancement ?? Sit > supine: Marimar x 1 for R LE management ?? Pt left supine in bed, all needs met, call lozano in reach; RN updated following session Education: Pt educated on importance of getting into the chair for all meals to practice SPT, performing strength exercises daily, and continuation of gait training during therapy sessions to return toprior level function. Pt verbalized understanding and all questions were addressed. Assessment: Ilir Laird was seen today for physical therapy treatment. Pt was very pleasant and motivated to participate in therapy session. Session was focused on gait training. Pt was able to ambulate 8ft x 2 in parallel bars with Min-ModA x 1 and CGA x 1 for safety. Pt demonstrates impaired R limbadvancement, R stance phase, proximal hip strength, and R LE motor control/coordination. Pt also hasincreased difficulty with stepping in multi-directions with R LE d/t impaired strength and motor control/coordination, thus SPT are more difficult going toward R. Plan to continue to focus on improvinggait mechanics to increase independence and safety during functional mobility. Specifically focusingon ambulation in different directions in parallel bars (side stepping, forwards/backwards walking), obstacle negotiation and transference to ambulation with FWW. Pt is an excellent candidate for acute rehab d/t high motivation, able to tolerate 3 hours of therapy per day, good social supports and has d emonstrated steady improvements since admission. Pt requires discharge to acute rehab facility to address impairments, goals and for safe discharge home. Discharge Recommendations: Based on the current findings, Anticipated Discharge Disposition (PT): acute rehabilitation facilitywhen medically ready for hospital discharge. Consult Recommendations: No other consults recommended at this time. Equipment needs: Anticipated Equipment Needs at Discharge (PT): to be determined Goals: To be achieved by 08/10/21: ONGOING, unless otherwise stated 1. Pt. to demonstrate knowledge of safety limitations and precautions and will appropriately requestassistance for functional activities and to mobilize. 2. Pt. to demonstrate understanding of appropriate seated LE exercises. MET 3. Pt to participate in standardized balance assessment. 4. Pt. to perform bed mobility independently from flat bed. 5. Pt. to perform SPT with FWW and R AFO independently. 6. Pt. to ambulate 75ft with FWW and R AFO independently. 7. Family or caregiver to demonstrate understanding of therapeutic interventions to support the careof the patient. 8. Pt will tolerate progression towards upright with stable vital signs. MET Plan: Therapy Frequency (PT): 3-5 times/wk for therapy interventions as outlined in initial evaluation. Patient agrees with plan as stated. Time IN / OUT: [id number] Total Minutes, Physical Therapy: 35 Margo Frazier PT Pager: [phone] Physical Therapy Inpatient Rehabilitation Department Ji Blanco MD - 08/04/2021 12:39 PM EDT Hospital Medicine Daily Progress Note Admit Date: 07/21/2021 Hospital Day 14 days Active Hospital Problems Diagnosis ??? Right sided weakness ??? Right hemiplegia Resolved Hospital Problems No resolved problems to display. 24 Hour Events: - overnight staff called over concern for right ankle weakness, neurosurgery evaluated and did not feel this was different than his baseline examination - ROS: ??Denies fever, chills, malaise, PINEDA, lightheadedness, chest pain, palpitations, SOB, dyspnea, N/V/D,constipation, dysuria, flank pain, edema?? Physical Exam Vitals Range last 24 hrs Temperature Temp: [36.3 ??C (97.3 ??F)-37.1 ??C (98.8 ??F)] Heart Rate Heart Rate: [65-66] Blood Pressure BP: (119-141)/(65-80) Respiratory Rate Resp: [16-20] SpO2 SpO2: [93 %-95 %] Intake/Output Summary (Last 24 hours) at 08/04/2021 1240 Last data filed at 08/04/2021 0949 Gross per 24 hour Intake 605 ml Output 200 ml Net 405 ml No data found. BMI: Weight: 79.4 kg (175 lb) (07/21/21 1039) BMI (Calculated): 26.61 BMI Classification: Over Weight Estimated Creatinine Clearance: 90.9 mL/min (A) (based on SCr of 0.69 mg/dL (L)). CONSTITUTIONAL:??Patient is an elderly appearing gentleman,??sitting comfortably in bedside chair HEENT:??Mucous membranes moist. NECK: No elevation in JVP appreciated.?? CHEST:??S1S2, RRR, no murmurs, rubs, clicks.?? LUNGS:??no crackles or wheezing ABDOMEN:??non-tender to palpation EXTREMITIES:??Radial pulses +2, equal, and symmetric. SKIN:??Warm and dry to touch.?? NEURO:??Right pupil slightly larger than left. Reactive equally to light. Alert and oriented x4. Right sided hemiplegia most notable in right upper extremity. Supervisor Particleboard strength now 5/5 on R and 5/5 of left. R arm flexion/extension 5/5. Right ankle dorsiflexion and extension 3/5. Left ankle dorsiflexion and extension 4/5. Able to raise both arms parallel though unable to control return to midline of R arm. PSYCH:??Affect pleasant. Patient cooperative. Speech pattern and speed appropriate.?? Studies reviewed in eDH. Remarkable for the following: LABS: Recent Labs 08/01/21 0312 07/30/21 0847 07/29/21 0724 WBC 18.8* 16.1* 16.7* HGB 13.6* 14.3 14.1 HCT 39.5* 42.6 40.6 PLATELET 125* 136* 152 Recent Labs 08/04/21 0423 08/03/21 1030 08/02/21 0439 NA 133* 131* 130* K 4.8 4.7 4.7 CL 98 97* 97* CO2 26 23 21* BUN 28* 27* 27* CREATININE 0.69* 0.80 0.79* Recent Labs 07/29/21 0724 AST 17 ALT 21 ALKPHOS 75 BILITOT 0.3 BILIDIR 0.1 Recent Labs 08/04/21 0423 08/03/21 1030 08/02/21 0439 CALCIUM 7.8* 7.8* 8.0* No results for input(s): PT, INR, PTT in the last 168 hours. No results for input(s): CK, TROPONINT in the last 168 hours. FSBG Trend No results for input(s): POCGLU in the last 72 hours. MICRO: No results for input(s): URINECULTURE in the last 720 hours. No results for input(s): GRAMSTAIN, BFCX, LOWERRESPCX, TISSUECX in the last 720 hours. No results for input(s): BLOODCX in the last 720 hours. ECG: No results for input(s): DIAGLINE, QTCCALC in the last 720 hours. VASCULAR: No results for input(s): VBTEXTRPT in the last 720 hours. IMAGING: Results for orders placed or performed during the hospital encounter of 07/21/21 CT Head wo Contrast (Generic) (Exam End: 07/21/2021 11:08 AM) Impression Increased size of hyperdense metastases along both cerebral convexities. Increased left frontoparietal vasogenic edema, sulcal effacement and mass effect on the left lateral ventricle. Similar vasogenic edema surrounding the right frontal convexity lesions. Thank you for letting us participate in the care of this patient. If you are a health care provider and have any questions regarding this report, please contact the number below. For patients who have questions please contact the health lead caregiver that requested your imaging first. Electronically signed by: Debo Davies MD, [facility] ([phone]), at 07/21/2021 11:33 AM MRI Brain wwo Contrast (Generic) (Exam End: 07/21/2021 3:51 PM) Impression 1. 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 2. Mild interval enlargement of 2 posterior right frontal metastatic lesions and a new subcentimeter metastatic lesion in the anteromedial left temporal lobe. Thank you for letting us participate in the care of this patient. If you are a health care provider and have any questions regarding this report, please contact the number below. For patients who have questions please contact the health lead caregiver that requested your imaging first. Electronically signed by: Hemant Vanegas MD, [facility] ([phone]), at 07/21/2021 4:[address] Rad Onc Neuro Interp Only (Exam End: 07/22/2021 3:34 PM) Impression Expected findings. Thank you for letting us participate in the care of this patient. If you are a health care provider and have any questions regarding this report, please contact the number below. For patients who have questions please contact the health lead caregiver that requested your imaging first. Electronically signed by: Hemant Vanegas MD, [facility] ([phone]), at 07/22/2021 4:12 PM Inpatient Medications: Scheduled ??? melatonin 3 mg Oral Nightly ??? dexamethasone 4 mg Oral Q6H CORIN ??? memantine 5 mg Oral Daily Followed by ??? [START ON 08/06/2021] memantine 5 mg Oral BID ??? [START ON 08/13/2021] memantine 10 mg Oral QAM And ??? [START ON 08/13/2021] memantine 5 mg Oral QPM ??? [START ON 08/20/2021] memantine 10 mg Oral BID ??? calcium carbonate 500 mg Oral BID ??? atorvastatin 80 mg Oral QPM ??? levETIRAcetam 1,500 mg Oral BID ??? metoprolol tartrate 12.5 mg Oral BID ??? pantoprazole EC 40 mg Oral Daily ??? sodium chloride 1 g Oral TID ??? sodium chloride 0.9 % (flush) 5 mL Intravenous BID ??? heparin (porcine) 5,000 Units Subcutaneous Q8H CORIN ??? divalproex EC 500 mg Oral BID Continuous infusions: PRN: carboxymethylcellulose, bisacodyL, acetaminophen, LORazepam, sodium chloride 0.9 % (flush), lidocaine Assessment: Mr. 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 He was admitted to hospital medicine with an MRI significant for evidence of brain lesion recurrence and enlargement of metastatic lesions. Given the extensive nature of metastasis as well as rapid growth of previously debulked tumor,surgical intervention was deferred, IV steroids were started, and the patient was started on whole brain radiation per Radiation Oncology (first session 07/22, fourteen sessions total, anticipated end-date 08/10).? Plan:?? # Metastatic NSCLC # Brain mets - rapidly progressive # Right sided hemiplegia, acute - 2/2 rapidly progressive mets # Cerebral edema secondary to post-operative changes and secondary to metastatic disease # Worsening acute seizure activity 2/2 brain mets - MRI brain showed interval metastatic recurrence in 2 prior LT surgical beds with shifting edema, mild interval enlargement of 2 posterior RT frontal metastatic lesions and new sub-cm metastatic lesion in LT temporal lobe - Case discussed with neurosurgery who recommended - S/P Keppra load 1gm IV x1 - will now continue home Keppra at 1500mg BID - Ativan 0.5mg PRN seizures - Seizure precautions-following risk benefit discussion with the patient and lack of evidence of reccurent seizure, seizure precautions were discontinued. Patient agreeable to reimplementation if seizures should reoccur.?? - Fall risk- Fall precautions ordered?? - COMMUNICATION STUDIES PROFESSOR evaluation- cleared for regular diet?? - goal sbp 90-160 - depatkoe 500 mg BID, last trough level 37 on 07/29 - Q4H neuro checks: ?- ??if acute twitching, would discuss with neurology immediately givenconcern for seizure and possible need for vEEG or Depakote load ?- if acute worsening of neuro exam, may then be candidate for Mannitol. Very poor candidate for surgery given aggressive nature of malignancy and number of lesions. Additionally concern about post-op swelling delaying radiation - Neurology, neurosurgery, oncology, radiation oncology and palliative input greatly appreciated - decadron 4mg IV q 6 for 24 hours followed by 4mg PO q6 with goal of TID dosing at the time of discharge - Will start whole brain radiation therapy today for 14 planned sessions - anticipate completion near [facility] if pt otherwise medically ready for discharge and cleared for home; if requires rehab, anticipate would complete course here. - Given GOC as above, will engage PT/OT. 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 # Leukocytosis, chronic - stable - in setting of chronic steroid use - no sign of active infection ?? # CAD with h/o 4v CABG # HTN # HLD - Cont??Beta Cassie, and statin IV access/ MIVF PIV Tubes/ Drains N/A DVT prophylaxis Heparin PT/OT/COMMUNICATION STUDIES PROFESSOR ordered Wound care N/A Anticipated Disposition TBD Team Pager ( Coverage 02/10): [phone] Family Update Daughter Sandro by phone 08/03 PCP Myriam Riggins MD SHARED VISIT n/a I have examined the patient myself and personally reviewed all studies. 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 male with pmhx of Metastatic NSCLC to the brain s/p debulking,CAD, HLD who presents to the ED for right sided weakness. ?? He has significant right sided weakness with decreased sensation over RLE. MRI showed metastatic reoccurence on the left with interval enlargement of 2 posterior right frontal metastatic lesions and new subcentimeter lesion in anteromedial left temproal love. Patient's history consistent with focal status aborted with ativan. Patient now on keppra 1.5g BID and depakote 500mg BID. Patient is receivingdecadron 6mg q6hr. ?? Past Medical History Past Medical History: Diagnosis Date ??? CAD (coronary artery disease) ? s/p CABG 2018 ??? High cholesterol ? Hypertension ? Tobacco use ? Past Surgical History Past Surgical History: Procedure Laterality Date ??? PRO EXCIS SUPRATENT BRAIN TUMOR Left 06/30/2021 ?? @CRANI, FOR TUMOR, SUPRATENTORIAL, NOT MENINGIOMA (WRVU 30.83) [facility] ??? PRO MICROSURG TECHNIQUES, REQ OPER MICROSCOPE N/A 06/30/2021 ?? MICROSCOPE USE (WRVU 3.46) performed by Darian Justice MD at [facility] MAIN OR ??? PRO STEREOTACTIC CPTR ASSTD PX CRANIAL, INTRADURAL N/A 06/30/2021 ?? STEREOTACTIC COMPUTER-ASSTD NAVIGATIONAL CRANIAL INTRADURAL (WRVU 3.75) performed by Darian Justice MD at [facility] MAIN OR ? Social History: Patient typically lives??alone in a house in [place], [place] with his dog Home Setup:??Pt reports that he has a ramp to enter with bilateral rails. Pt has one level home witha basement. Pt reports that he sleeps on the sofa at times. Pt has a tub/shower combo with GB.?? DME:??Walker, wheelchair?? Baseline ADL/Mobility:??Prior to admission; Pt was at [facility] getting rehab s/p last hospital admission and then discharged home. Pt was home for one day prior to needing to return to hospital due toincreased weakness in R hemibody. 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 Pt daughter Antonina, lives farther away, but is supportive. ?? Precautions/Special Considerations:??Limited code, AAT, at risk for falls, R sided weakness, R shoulder precautions Interval History: neurosurgery re-consulted d/t concern for new R LE weakness. S: I really should brush my teeth. O: Patient seen for skilled OT treatment and demonstrated the following: ?? Self-care: ?? Bathing: setup assist for UB. LB completed by nursing prior to OT session ?? Grooming: independently brushed teeth, washed face, and shaved using an electric razor ?? Self-feeding: pt reports independence using RUE with increased time and effort. ?? /Functional Mobility: ?? Supine to sit: min A with HOB elevated and use of bed rails ?? Sit to stand: min A x 1 with a gait belt from EOB x 2 and from a recliner chair x 3 to a FWW withcues for technique. ?? Stand to sit: Min A x 1 with cue for hand placement, technique ?? Bed to chair: mod A x 1 with FWW and gait belt, leading with the L side; cues needed for sequencing and assist needed to guide RLE. Educated RN on recommended technique for bed >< chair transfers using 2 assist and FWW, gait belt; RN verbalized understanding. ?? Balance: ?? Static sitting: good ?? Static standing: fair+ with BUE support ?? Dynamic standing: fair with BUE support ?? Cognition: ?? Behavior / Mood: alert, cooperative and highly motivated ?? Alert and oriented to: person, place, time and situation ?? Follows commands: multi step and 100% of the time ?? Attention: WFL ?? Safety awareness: fully aware of deficits ?? Endurance: VSS on RA ?? Strength/ROM: ?? RUE: 4/5 elbow flexion/extension; 4/5 wrist flexion/extension; 4+/5 sales contracts analyst strength Pain: no pain reported Education: Pt/family/caregiver education ongoing regarding: Role of occupational therapy/rehabilitation, Transfers, Assistive device/technique, ADL, Exercise, Positioning, Safety, Precautions/Protocol,Functional Mobility, Activity pacing/Energy conservation, Home Program, Balance, Recommendations andDischarge planning. Staff Communication: Patient status, treatment, and mobility recommendations discussed with nursing/other staff. ASSESSMENT: Pt seen for OT treatment to address goals per POC. Pt demonstrated increased independence with functional tranfers, grooming/hygiene and improved activity tolerance. Pt transfered OOB to chair with mod A x 1 using FWW with multiple cues for sequencing. Pt performed UB bathing and grooming with supervision/independence in unsupported sitting in bedside chair. Pt demonstrated increased functional use of his RUE but continues to have decreased strength and coordination in his RLE. Pt is motivated to regain his functional independence and is making steady progress towards his OT goals. Continue to recommend inpatient rehab to maximize pt's functional independence and safety to facilitate return to independent living. Pt will continue to benefit from OT interventions while remaining house. Equipment needs at discharge: to be determined Anticipated Discharge Disposition: acute rehabilitation facility Daily schedule / Staff Recommendations: ?? Transfer to recliner chair and/or BSC as appropriate with??2A, FWW, and a gait belt for stand pivot transfer ?? Encourage independence with ADLS and provide assist only as needed ?? Allow pt extra time to complete functional tasks Occupational Therapy Goals: ongoing To be achieved by??08/19/21 Pt will be??min A??for LB dressing with AE as needed at seated/standing levels Pt will perform toileting hygiene with min A in sitting/standing Pt will perform clothing management during toileting routine with min A Pt will be??min A for UB dressing Pt will be independent for HEP for BUEs Pt will be able to stand for 8 minutes with CGA to perform ADL task Therapy Frequency (OT): 2-4 times/wk Total Minutes, Occupational Therapy: 55 (SCHM x 4) Pager: [phone] Judith Duran OT 08/04/2021 Occupational Therapy Rehabilitation Department Stephanie Bird APRN - 08/04/2021 8:45 AM EDT Hospital Medicine Daily Progress Note Admit Date: 07/21/2021 Hospital Day 14 days Active Hospital Problems Diagnosis ??? Right sided weakness ??? Right hemiplegia Resolved Hospital Problems No resolved problems to display. 24 Hour Events: -Neurology to bedside to evaluate patient overnight for concern of change in neuro exam- patient unable to dorsiflex/extend right foot -Return to baseline at the time of evaluation, heat CT deferred due to baseline exam -Patient seen and evaluated in person at bedside -States he felt his weakness was consistent with baseline weakness -Reports no ongoing concerns today. ROS: Denies fever, chills, malaise, PINEDA, lightheadedness, chest pain, palpitations, SOB, dyspnea, N/V/D, constipation, dysuria, flank pain, edema?? Physical Exam Vitals Range last 24 hrs Temperature Temp: [36.6 ??C (97.8 ??F)-37.1 ??C (98.8 ??F)] Heart Rate Heart Rate: [65-71] Blood Pressure BP: (119-141)/(66-80) Respiratory Rate Resp: [16-20] SpO2 SpO2: [92 %-95 %] Intake/Output Summary (Last 24 hours) at 08/04/2021 0845 Last data filed at 08/03/2021 1800 Gross per 24 hour Intake 600 ml Output 200 ml Net 400 ml No data found. BMI: Weight: 79.4 kg (175 lb) (07/21/21 1039) BMI (Calculated): 26.61 BMI Classification: Over Weight Estimated Creatinine Clearance: 90.9 mL/min (A) (based on SCr of 0.69 mg/dL (L)). CONSTITUTIONAL:??Patient is an elderly appearing gentleman,??sitting??comfortably in bedside chair??upon entering room.??No acute distress. Breathing comfortably on room air??and able to communicate infull sentences.?? HEENT:??Normocephalic, atraumatic. Bilateral sclera anicteric and without injection. No conjunctivalexudate or injection.??Right eyelid with mild inversion but without evidence of trauma to surrounding eye tissues.??Mucous membranes moist. NECK: Trachea midline, no evidence of thyromegaly. No elevation in JVP appreciated.?? CHEST:??S1S2, RRR, no murmurs, rubs, clicks.?? LUNGS:??Respiratory effort and expansion good, equal, and symmetric bilaterally. Bilateral lung sherwood clear to auscultation with no adventitious sounds noted.?? ABDOMEN:??Round, soft, non-tender to palpation. Bowel sounds normoactive throughout. No masses or hepatosplenomegaly noted.?? EXTREMITIES:??Distal extremities warm and well perfused x4. Radial pulses +2, equal, and symmetric. Pedal pulses +1, equal, and symmetric.?? SKIN:??Warm and dry to touch.?? NEURO:??Right pupil slightly larger than left. Reactive equally to light. EOMI. Alert and oriented x4. Right sided hemiplegia most notable in right upper extremity. Supervisor Particleboard strength??now 5/5 on R and 5/5 of left. Right dorsiflexion and extension 3-4/5. No change from baseline findings. Left dorsiflexion and extension 5/5. No additional focal deficit noted.?? PSYCH:??Affect pleasant. Patient cooperative. Speech pattern and speed appropriate.?? Studies reviewed in eDH. Remarkable for the following: LABS: Recent Labs 08/01/21 0312 07/30/21 0847 07/29/21 0724 WBC 18.8* 16.1* 16.7* HGB 13.6* 14.3 14.1 HCT 39.5* 42.6 40.6 PLATELET 125* 136* 152 Recent Labs 08/04/21 0423 08/03/21 1030 08/02/21 0439 NA 133* 131* 130* K 4.8 4.7 4.7 CL 98 97* 97* CO2 26 23 21* BUN 28* 27* 27* CREATININE 0.69* 0.80 0.79* Recent Labs 07/29/21 0724 AST 17 ALT 21 ALKPHOS 75 BILITOT 0.3 BILIDIR 0.1 Recent Labs 08/04/21 0423 08/03/21 1030 08/02/21 0439 CALCIUM 7.8* 7.8* 8.0* No results for input(s): PT, INR, PTT in the last 168 hours. No results for input(s): CK, TROPONINT in the last 168 hours. FSBG Trend No results for input(s): POCGLU in the last 72 hours. MICRO: No results for input(s): URINECULTURE in the last 720 hours. No results for input(s): GRAMSTAIN, BFCX, LOWERRESPCX, TISSUECX in the last 720 hours. No results for input(s): BLOODCX in the last 720 hours. ECG: No results for input(s): DIAGLINE, QTCCALC in the last 720 hours. VASCULAR: No results for input(s): VBTEXTRPT in the last 720 hours. IMAGING: Results for orders placed or performed during the hospital encounter of 07/21/21 CT Head wo Contrast (Generic) (Exam End: 07/21/2021 11:08 AM) Impression Increased size of hyperdense metastases along both cerebral convexities. Increased left frontoparietal vasogenic edema, sulcal effacement and mass effect on the left lateral ventricle. Similar vasogenic edema surrounding the right frontal convexity lesions. Thank you for letting us participate in the care of this patient. If you are a health care provider and have any questions regarding this report, please contact the number below. For patients who have questions please contact the health lead caregiver that requested your imaging first. Electronically signed by: Debo Davies MD, [facility] ([phone]), at 07/21/2021 11:33 AM MRI Brain wwo Contrast (Generic) (Exam End: 07/21/2021 3:51 PM) Impression 1. 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 2. Mild interval enlargement of 2 posterior right frontal metastatic lesions and a new subcentimeter metastatic lesion in the anteromedial left temporal lobe. Thank you for letting us participate in the care of this patient. If you are a health care provider and have any questions regarding this report, please contact the number below. For patients who have questions please contact the health lead caregiver that requested your imaging first. Electronically signed by: Hemant Vanegas MD, [facility] ([phone]), at 07/21/2021 4:[address] Rad Onc Neuro Interp Only (Exam End: 07/22/2021 3:34 PM) Impression Expected findings. Thank you for letting us participate in the care of this patient. If you are a health care provider and have any questions regarding this report, please contact the number below. For patients who have questions please contact the health lead caregiver that requested your imaging first. Electronically signed by: Hemant Vanegas MD, [facility] ([phone]), at 07/22/2021 4:12 PM Inpatient Medications: Scheduled ??? melatonin 3 mg Oral Nightly ??? dexamethasone 4 mg Oral Q6H CORIN ??? memantine 5 mg Oral Daily Followed by ??? [START ON 08/06/2021] memantine 5 mg Oral BID ??? [START ON 08/13/2021] memantine 10 mg Oral QAM And ??? [START ON 08/13/2021] memantine 5 mg Oral QPM ??? [START ON 08/20/2021] memantine 10 mg Oral BID ??? calcium carbonate 500 mg Oral BID ??? atorvastatin 80 mg Oral QPM ??? levETIRAcetam 1,500 mg Oral BID ??? metoprolol tartrate 12.5 mg Oral BID ??? pantoprazole EC 40 mg Oral Daily ??? sodium chloride 1 g Oral TID ??? sodium chloride 0.9 % (flush) 5 mL Intravenous BID ??? heparin (porcine) 5,000 Units Subcutaneous Q8H CORIN ??? divalproex EC 500 mg Oral BID Continuous infusions: PRN: carboxymethylcellulose, bisacodyL, acetaminophen, LORazepam, sodium chloride 0.9 % (flush), lidocaine Mr. 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 He was admitted to hospital medicine with an MRI significant for evidence of brain lesion recurrence and enlargement of metastatic lesions. Given the extensive nature of metastasis as well as rapid growth of previously debulked tumor,surgical intervention was deferred, IV steroids were started, and the patient was started on whole brain radiation per Radiation Oncology (first session 07/22??through??08/10??for fourteen sessions).? Following discussion with Dr. Laura, will begin to wean IV steroids to eventual oral taper. Plan to transition to 4mg IV q 6 for 24 hours followed by 4mg PO q6 with goal of TID dosing at the time ofdischarge. Plan: # Metastatic NSCLC # Brain mets - rapidly progressive # Right sided hemiplegia, acute - 2/2 rapidly progressive mets # Swelling of brain, post-operative changes and 2/2 mets # Worsening acute seizure activity 2/2 brain mets - MRI brain showed interval metastatic recurrence in 2 prior LT surgical beds with shifting edema, mild interval enlargement of 2 posterior RT frontal metastatic lesions and new sub-cm metastatic lesion in LT temporal lobe - Case discussed with neurosurgery who recommended Decadron 10mg IVx1 followed by 6mg Q6H IV - S/P Keppra load 1gm IV x1 - will now continue home Keppra at 1500mg BID - Ativan 0.5mg PRN seizures - Seizure precautions-following risk benefit discussion with the patient and lack of evidence of reccurent seizure, seizure precautions were discontinued. Patient agreeable to reimplementation if seizures should reoccur.?? - Fall risk- Fall precautions ordered?? - COMMUNICATION STUDIES PROFESSOR evaluation- cleared for regular diet?? - Cont home sodium tablets- previously worked up hyponatremia as SIADH - goal sbp 90-160 - Q4H neuro checks: ?- ??if acute twitching, would discuss with neurology immediately givenconcern for seizure and possible need for vEEG or Depakote load ?- if acute worsening of neuro exam, may then be candidate for Mannitol. Very poor candidate for surgery given aggressive nature of malignancy and number of lesions. Additionally concern about post-op swelling delaying radiation - Neurology, neurosurgery, oncology, radiation oncology and palliative input greatly appreciated - Wean IV steroids to 4mg q 6 hours x24 hours. - Will start whole brain radiation therapy today for 14 planned sessions - anticipate completion near . if pt otherwise medically ready for discharge and cleared for home; if requires rehab, anticipate would complete course here. -Titrate Memantine for prophylactic protection in the setting of whole brain radiation?? - Given GOC as above, will engage PT/OT. ?? # Leukocytosis, chronic - stable - in setting of chronic steroid use - no sign of active infection ?? # CAD with h/o 4v CABG # HTN # HLD - Cont??Beta Cassie, and statin ?? IV access/ MIVF PIV Tubes/ Drains N/A DVT prophylaxis Heparin PT/OT/COMMUNICATION STUDIES PROFESSOR ordered Wound care N/A Anticipated Disposition Acute Rehab Team Pager ( Coverage 02/10): [phone] Family Update DNR/DNI PCP Myriam Riggins MD SHARED VISIT This patient was seen in conjunction with Dr. Ji Blanco as part of a shared visit. Stephanie Bird, ROLLER REPAIRER 08/04/2021 Michelle Saha RN - 08/03/2021 7:46 PM EDT OUTCOME EVALUATION NOTE: OUTCOME SUMMARY: A&Ox4, Neuro checks unchanged VSS on RA Denies pain Meds given per MAR Up to chair x2a w/ walker Rad tx today X1 suppository given for BM No acute events Will continue to monitor PLAN MOVING FORWARD: PT/OT Rad tx INDIVIDUALIZED FALL PREVENTION INTERVENTIONS: Patient-specific fall risk factors per assessment: [current deficits]: Weakness, IV sites Assistance [level of assistance required for transfers and ambulation]: Hands on Supervision [direct monitoring required during toileting and ADLs]: Hands on Surveillance [continuous indirect monitoring]: Purposeful rounding, call light within reach, room near unit station, bed alarm on Patient-specific fall prevention interventions for sensory deficits provided, if applicable: [X] N/A CPG GOAL OUTCOME EVALUATION: Margo Frazier PT - 08/03/2021 3:30 PM EDT 08/03/21 [id number] Evaluation & Treatment Document Type contact Total Minutes, Physical Therapy 0 Comment, Session Not Performed Attempted to see pt for PT treatment however pt was off unit for radiation. Will re-attempt tomorrow AM. Margo Frazier, PT, DPT Pager: [phone] Physical Therapy Inpatient Rehabilitation Department Ji Blanco MD - 08/03/2021 1:57 PM EDT [facility] Medicine Daily Progress Note Admit Date: 07/21/2021 Hospital Day 13 days Active Hospital Problems Diagnosis ??? Right sided weakness ??? Right hemiplegia Resolved Hospital Problems No resolved problems to display. 24 Hour Events: -No acute overnight events -Patient seen and evaluated in person at bedside ROS: ??Denies fever, chills, malaise, PINEDA, lightheadedness, chest pain, palpitations, SOB, dyspnea, N/V/D,constipation, dysuria, flank pain, edema?? Physical Exam Vitals Range last 24 hrs Temperature Temp: [36.1 ??C (97 ??F)-37 ??C (98.6 ??F)] Heart Rate Heart Rate: [63-71] Blood Pressure BP: (120-139)/(59-72) Respiratory Rate Resp: [16-21] SpO2 SpO2: [92 %-94 %] Intake/Output Summary (Last 24 hours) at 08/03/2021 1357 Last data filed at 08/03/2021 0800 Gross per 24 hour Intake 120 ml Output 720 ml Net -600 ml No data found. BMI: Weight: 79.4 kg (175 lb) (07/21/21 1039) BMI (Calculated): 26.61 BMI Classification: Over Weight Estimated Creatinine Clearance: 78.4 mL/min (based on SCr of 0.8 mg/dL). CONSTITUTIONAL:??Patient is an elderly appearing gentleman,??sitting comfortably in bedside chair HEENT:??Mucous membranes moist. NECK: No elevation in JVP appreciated.?? CHEST:??S1S2, RRR, no murmurs, rubs, clicks.?? LUNGS:??no crackles or wheezing ABDOMEN:??non-tender to palpation EXTREMITIES:??Radial pulses +2, equal, and symmetric. SKIN:??Warm and dry to touch.?? NEURO:??Right pupil slightly larger than left. Reactive equally to light. Alert and oriented x4. Right sided hemiplegia most notable in right upper extremity. Supervisor Particleboard strength now 5/5 on R and 5/5 of left. R arm flexion/extension 5/5. Right ankle dorsiflexion and extension 3/5. Left ankle dorsiflexion and extension 5/5. Able to raise both arms parallel though unable to control return to midline of R arm. PSYCH:??Affect pleasant. Patient cooperative. Speech pattern and speed appropriate.?? Studies reviewed in eDH. Remarkable for the following: LABS: Recent Labs 08/01/21 0312 07/30/21 0847 07/29/21 0724 WBC 18.8* 16.1* 16.7* HGB 13.6* 14.3 14.1 HCT 39.5* 42.6 40.6 PLATELET 125* 136* 152 Recent Labs 08/03/21 1030 08/02/21 0439 08/01/21 0312 NA 131* 130* 128* K 4.7 4.7 4.5 CL 97* 97* 95* CO2 23 21* 22 BUN 27* 27* 28* CREATININE 0.80 0.79* 0.97 Recent Labs 07/29/21 0724 AST 17 ALT 21 ALKPHOS 75 BILITOT 0.3 BILIDIR 0.1 Recent Labs 08/03/21 1030 08/02/21 0439 08/01/21 0312 CALCIUM 7.8* 8.0* 8.1* No results for input(s): PT, INR, PTT in the last 168 hours. No results for input(s): CK, TROPONINT in the last 168 hours. FSBG Trend No results for input(s): POCGLU in the last 72 hours. MICRO: No results for input(s): URINECULTURE in the last 720 hours. No results for input(s): GRAMSTAIN, BFCX, LOWERRESPCX, TISSUECX in the last 720 hours. No results for input(s): BLOODCX in the last 720 hours. ECG: No results for input(s): DIAGLINE, QTCCALC in the last 720 hours. VASCULAR: No results for input(s): VBTEXTRPT in the last 720 hours. IMAGING: Results for orders placed or performed during the hospital encounter of 07/21/21 CT Head wo Contrast (Generic) (Exam End: 07/21/2021 11:08 AM) Impression Increased size of hyperdense metastases along both cerebral convexities. Increased left frontoparietal vasogenic edema, sulcal effacement and mass effect on the left lateral ventricle. Similar vasogenic edema surrounding the right frontal convexity lesions. Thank you for letting us participate in the care of this patient. If you are a health care provider and have any questions regarding this report, please contact the number below. For patients who have questions please contact the health lead caregiver that requested your imaging first. Electronically signed by: Debo Davies MD, [facility] ([phone]), at 07/21/2021 11:33 AM MRI Brain wwo Contrast (Generic) (Exam End: 07/21/2021 3:51 PM) Impression 1. 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 2. Mild interval enlargement of 2 posterior right frontal metastatic lesions and a new subcentimeter metastatic lesion in the anteromedial left temporal lobe. Thank you for letting us participate in the care of this patient. If you are a health care provider and have any questions regarding this report, please contact the number below. For patients who have questions please contact the health lead caregiver that requested your imaging first. Electronically signed by: Hemant Vanegas MD, [facility] ([phone]), at 07/21/2021 4:[address] Rad Onc Neuro Interp Only (Exam End: 07/22/2021 3:34 PM) Impression Expected findings. Thank you for letting us participate in the care of this patient. If you are a health care provider and have any questions regarding this report, please contact the number below. For patients who have questions please contact the health lead caregiver that requested your imaging first. Electronically signed by: Hemant Vanegas MD, [facility] ([phone]), at 07/22/2021 4:12 PM Inpatient Medications: Scheduled ??? melatonin 3 mg Oral Nightly ??? dexamethasone 4 mg Oral Q6H CORIN ??? memantine 5 mg Oral Daily Followed by ??? [START ON 08/06/2021] memantine 5 mg Oral BID ??? [START ON 08/13/2021] memantine 10 mg Oral QAM And ??? [START ON 08/13/2021] memantine 5 mg Oral QPM ??? [START ON 08/20/2021] memantine 10 mg Oral BID ??? calcium carbonate 500 mg Oral BID ??? atorvastatin 80 mg Oral QPM ??? levETIRAcetam 1,500 mg Oral BID ??? metoprolol tartrate 12.5 mg Oral BID ??? pantoprazole EC 40 mg Oral Daily ??? sodium chloride 1 g Oral TID ??? sodium chloride 0.9 % (flush) 5 mL Intravenous BID ??? heparin (porcine) 5,000 Units Subcutaneous Q8H CORIN ??? divalproex EC 500 mg Oral BID Continuous infusions: PRN: carboxymethylcellulose, bisacodyL, acetaminophen, LORazepam, sodium chloride 0.9 % (flush), lidocaine Assessment: Mr. 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 He was admitted to hospital medicine with an MRI significant for evidence of brain lesion recurrence and enlargement of metastatic lesions. Given the extensive nature of metastasis as well as rapid growth of previously debulked tumor,surgical intervention was deferred, IV steroids were started, and the patient was started on whole brain radiation per Radiation Oncology (first session 07/22, fourteen sessions total, anticipated end-date 08/10).? Plan:?? # Metastatic NSCLC # Brain mets - rapidly progressive # Right sided hemiplegia, acute - 2/2 rapidly progressive mets # Cerebral edema secondary to post-operative changes and secondary to metastatic disease # Worsening acute seizure activity 2/2 brain mets - MRI brain showed interval metastatic recurrence in 2 prior LT surgical beds with shifting edema, mild interval enlargement of 2 posterior RT frontal metastatic lesions and new sub-cm metastatic lesion in LT temporal lobe - Case discussed with neurosurgery who recommended Decadron 10mg IVx1 followed by 6mg Q6H IV - S/P Keppra load 1gm IV x1 - will now continue home Keppra at 1500mg BID - Ativan 0.5mg PRN seizures - Seizure precautions-following risk benefit discussion with the patient and lack of evidence of reccurent seizure, seizure precautions were discontinued. Patient agreeable to reimplementation if seizures should reoccur.?? - Fall risk- Fall precautions ordered?? - COMMUNICATION STUDIES PROFESSOR evaluation- cleared for regular diet?? - goal sbp 90-160 - depatkoe 500 mg BID, last trough level 37 on 07/29 - Q4H neuro checks: ?- ??if acute twitching, would discuss with neurology immediately givenconcern for seizure and possible need for vEEG or Depakote load ?- if acute worsening of neuro exam, may then be candidate for Mannitol. Very poor candidate for surgery given aggressive nature of malignancy and number of lesions. Additionally concern about post-op swelling delaying radiation - Neurology, neurosurgery, oncology, radiation oncology and palliative input greatly appreciated - decadron 4mg IV q 6 for 24 hours followed by 4mg PO q6 with goal of TID dosing at the time of discharge - Will start whole brain radiation therapy today for 14 planned sessions - anticipate completion near . if pt otherwise medically ready for discharge and cleared for home; if requires rehab, anticipate would complete course here. - Given GOC as above, will engage PT/OT. 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 # Leukocytosis, chronic - stable - in setting of chronic steroid use - no sign of active infection ?? # CAD with h/o 4v CABG # HTN # HLD - Cont??Beta Cassie, and statin IV access/ MIVF PIV Tubes/ Drains N/A DVT prophylaxis Heparin PT/OT/COMMUNICATION STUDIES PROFESSOR ordered Wound care N/A Anticipated Disposition TBD Team Pager ( Coverage 02/10): [phone] Family Update Daughter Sandro by phone 08/03 PCP Myriam Riggins MD SHARED VISIT n/a I have examined the patient myself and personally reviewed all studies. 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 Right sided weakness ??? Right hemiplegia Resolved Hospital Problems No resolved problems to display. 24 Hour Events/Subjective -No acute overnight events -Patient seen and evaluated in person at bedside -Endorses poor sleep quality x3 nights-received 5mg Ambien overnight -Has not taken any PRN Melatonin -Reports fatigue throughout day with increased napping -Denies any issues with seizures/fasciculations -States strength is improving daily, planning on mobilizing more this afternoon -Last BM 08/03 ROS: Denies fever, chills, malaise, PINEDA, lightheadedness, chest pain, palpitations, SOB, dyspnea, N/V/D, constipation, dysuria, flank pain, edema?? Physical Exam Vitals Range last 24 hrs Temperature Temp: [36.1 ??C (97 ??F)-36.6 ??C (97.9 ??F)] Heart Rate Heart Rate: [63-68] Blood Pressure BP: (120-139)/(59-72) Respiratory Rate Resp: [16-21] SpO2 SpO2: [92 %-94 %] Intake/Output Summary (Last 24 hours) at 08/03/2021 1122 Last data filed at 08/03/2021 0800 Gross per 24 hour Intake 120 ml Output 720 ml Net -600 ml No data found. BMI: Weight: 79.4 kg (175 lb) (07/21/21 1039) BMI (Calculated): 26.61 BMI Classification: Over Weight Estimated Creatinine Clearance: 79.4 mL/min (A) (based on SCr of 0.79 mg/dL (L)). CONSTITUTIONAL:??Patient is an elderly appearing gentleman,??sitting??comfortably in bed??upon entering room.??No acute distress. Breathing comfortably on room air??and able to communicate in full sentences.?? HEENT:??Normocephalic, atraumatic. Bilateral sclera anicteric and without injection. No conjunctivalexudate or injection.??Right eyelid with mild inversion but without evidence of trauma to surrounding eye tissues.??Mucous membranes moist. NECK: Trachea midline, no evidence of thyromegaly. No elevation in JVP appreciated.?? CHEST:??S1S2, RRR, no murmurs, rubs, clicks.?? LUNGS:??Respiratory effort and expansion good, equal, and symmetric bilaterally. Bilateral lung sherwood clear to auscultation with no adventitious sounds noted.?? ABDOMEN:??Round, soft, non-tender to palpation. Bowel sounds normoactive throughout. No masses or hepatosplenomegaly noted.?? EXTREMITIES:??Distal extremities warm and well perfused x4. Radial pulses +2, equal, and symmetric. Pedal pulses +1, equal, and symmetric.?? SKIN:??Warm and dry to touch.?? NEURO:??Right pupil slightly larger than left. Reactive equally to light. EOMI. Alert and oriented x4. Right sided hemiplegia most notable in right upper extremity. Supervisor Particleboard strength??now 5/5 on R and 5/5 of left. Right dorsiflexion and extension 3-4/5. Left dorsiflexion and extension 5/5. No additional focal deficit noted.?? PSYCH:??Affect pleasant. Patient cooperative. Speech pattern and speed appropriate.?? Studies reviewed in eDH. Remarkable for the following: LABS: Recent Labs 08/01/2131107/30/21 0847 07/29/21 0724 WBC 18.8* 16.1* 16.7* HGB 13.6* 14.3 14.1 HCT 39.5* 42.6 40.6 PLATELET 125* 136* 152 Recent Labs 08/02/21 04308/01/212 07/31/21 0541 NA 130* 128* 131* K 4.7 4.5 4.6 CL 97* 95* 98 CO2 21* 22 20* BUN 27* 28* 29* CREATININE 0.79* 0.97 0.72* Recent Labs 07/29/21 0724 AST 17 ALT 21 ALKPHOS 75 BILITOT 0.3 BILIDIR 0.1 Recent Labs 08/02/21 04308/01/2131107/31/21 0541 CALCIUM 8.0* 8.1* 8.2* No results for input(s): PT, INR, PTT in the last 168 hours. No results for input(s): CK, TROPONINT in the last 168 hours. FSBG Trend No results for input(s): POCGLU in the last 72 hours. MICRO: No results for input(s): URINECULTURE in the last 720 hours. No results for input(s): GRAMSTAIN, BFCX, LOWERRESPCX, TISSUECX in the last 720 hours. No results for input(s): BLOODCX in the last 720 hours. ECG: No results for input(s): DIAGLINE, QTCCALC in the last 720 hours. VASCULAR: No results for input(s): VBTEXTRPT in the last 720 hours. IMAGING: Results for orders placed or performed during the hospital encounter of 07/21/21 CT Head wo Contrast (Generic) (Exam End: 07/21/2021 11:08 AM) Impression Increased size of hyperdense metastases along both cerebral convexities. Increased left frontoparietal vasogenic edema, sulcal effacement and mass effect on the left lateral ventricle. Similar vasogenic edema surrounding the right frontal convexity lesions. Thank you for letting us participate in the care of this patient. If you are a health care provider and have any questions regarding this report, please contact the number below. For patients who have questions please contact the health lead caregiver that requested your imaging first. Electronically signed by: Debo Davies MD, [facility] ([phone]), at 07/21/2021 11:33 AM MRI Brain wwo Contrast (Generic) (Exam End: 07/21/2021 3:51 PM) Impression 1. 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 2. Mild interval enlargement of 2 posterior right frontal metastatic lesions and a new subcentimeter metastatic lesion in the anteromedial left temporal lobe. Thank you for letting us participate in the care of this patient. If you are a health care provider and have any questions regarding this report, please contact the number below. For patients who have questions please contact the health lead caregiver that requested your imaging first. Electronically signed by: Hemant Vanegas MD, [facility] ([phone]), at 07/21/2021 4:[address] Rad Onc Neuro Interp Only (Exam End: 07/22/2021 3:34 PM) Impression Expected findings. Thank you for letting us participate in the care of this patient. If you are a health care provider and have any questions regarding this report, please contact the number below. For patients who have questions please contact the health lead caregiver that requested your imaging first. Electronically signed by: Hemant Vanegas MD, [facility] ([phone]), at 07/22/2021 4:12 PM Inpatient Medications: Scheduled ??? melatonin 6 mg Oral Nightly ??? dexamethasone inj 4 mg Intravenous Q6H CORIN ??? memantine 5 mg Oral Daily Followed by ??? [START ON 08/06/2021] memantine 5 mg Oral BID ??? [START ON 08/13/2021] memantine 10 mg Oral QAM And ??? [START ON 08/13/2021] memantine 5 mg Oral QPM ??? [START ON 08/20/2021] memantine 10 mg Oral BID ??? calcium carbonate 500 mg Oral BID ??? atorvastatin 80 mg Oral QPM ??? levETIRAcetam 1,500 mg Oral BID ??? metoprolol tartrate 12.5 mg Oral BID ??? pantoprazole EC 40 mg Oral Daily ??? sodium chloride 1 g Oral TID ??? sodium chloride 0.9 % (flush) 5 mL Intravenous BID ??? heparin (porcine) 5,000 Units Subcutaneous Q8H CORIN ??? divalproex EC 500 mg Oral BID Continuous infusions: PRN: carboxymethylcellulose, bisacodyL, acetaminophen, LORazepam, sodium chloride 0.9 % (flush), lidocaine Assessment: Mr. 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 He was admitted to hospital medicine with an MRI significant for evidence of brain lesion recurrence and enlargement of metastatic lesions. Given the extensive nature of metastasis as well as rapid growth of previously debulked tumor,surgical intervention was deferred, IV steroids were started, and the patient was started on whole brain radiation per Radiation Oncology (first session 07/22??through??08/10??for fourteen sessions Interval History: Following discussion with Dr. Laura, will begin to wean IV steroids to eventual oral taper. Plan to transition to 4mg IV q 6 for 24 hours followed by 4mg PO q6 with goal of TID dosing at the time ofdischarge. Will transition this afternoon to oral dexamethasone for first time dose scheduled this evening. Plan: # Metastatic NSCLC # Brain mets - rapidly progressive # Right sided hemiplegia, acute - 2/2 rapidly progressive mets # Swelling of brain, post-operative changes and 2/2 mets # Worsening acute seizure activity 2/2 brain mets - MRI brain showed interval metastatic recurrence in 2 prior LT surgical beds with shifting edema, mild interval enlargement of 2 posterior RT frontal metastatic lesions and new sub-cm metastatic lesion in LT temporal lobe - Case discussed with neurosurgery who recommended Decadron 10mg IVx1 followed by 6mg Q6H IV - S/P Keppra load 1gm IV x1 - will now continue home Keppra at 1500mg BID - Ativan 0.5mg PRN seizures - Seizure precautions-following risk benefit discussion with the patient and lack of evidence of reccurent seizure, seizure precautions were discontinued. Patient agreeable to reimplementation if seizures should reoccur.?? - Fall risk- Fall precautions ordered?? - COMMUNICATION STUDIES PROFESSOR evaluation- cleared for regular diet?? - Cont home sodium tablets- previously worked up hyponatremia as SIADH - goal sbp 90-160 - Q4H neuro checks: ?- ??if acute twitching, would discuss with neurology immediately givenconcern for seizure and possible need for vEEG or Depakote load ?- if acute worsening of neuro exam, may then be candidate for Mannitol. Very poor candidate for surgery given aggressive nature of malignancy and number of lesions. Additionally concern about post-op swelling delaying radiation - Neurology, neurosurgery, oncology, radiation oncology and palliative input greatly appreciated - Wean IV steroids to 4mg q 6 hours x24 hours. - Will start whole brain radiation therapy today for 14 planned sessions - anticipate completion near [facility] if pt otherwise medically ready for discharge and cleared for home; if requires rehab, anticipate would complete course here. -Titrate Memantine for prophylactic protection in the setting of whole brain radiation?? - Given GOC as above, will engage PT/OT. ?? # Leukocytosis, chronic - stable - in setting of chronic steroid use - no sign of active infection ?? # CAD with h/o 4v CABG # HTN # HLD - Cont??Beta Cassie, and statin IV access/ MIVF PIV Tubes/ Drains N/A DVT prophylaxis Heparin PT/OT/COMMUNICATION STUDIES PROFESSOR ordered Wound care N/A Anticipated Disposition Acute Rehab Team Pager (MD Coverage 02/10): [phone] Family Update Daughter, Sandro updated via telephone at [phone] PCP Myriam Riggins MD SHARED VISIT This patient was seen in conjunction with Dr. Ji Blanco as part of a shared visit. Stephanie Bird, ROLLER REPAIRER 08/03/2021 Rosio Mcnally RN - 08/02/2021 4:40 PM EDT Patient refusing to wear cont Masimo. The reason pt gave for this refusal was My oxygen level is good and my HR is good plus it won't stay on. Patient refusing incentive spirometry. The reason pt gave was I'm breathing fine. I don't think I need to do breathing exercises. Nursing actions taken during this shift to address patient???s refusal included Education about importance of care Plan to address patient???s refusal include Nursing leadership notified Rosio Mcnally RN Rosio Mcnally RN - 08/02/2021 4:40 PM EDT OUTCOME EVALUATION NOTE: OUTCOME SUMMARY: Pt back from rad onc. AOx4. VSS on RA. Denies pain. Q4 neuro checks cont. R sided weakness cont. 1500 fluid restriction cont (see I/O). Pt declines cont masimo/incentive spirometry (see refusal note). Visitor at bedside. IV steroids cont. PLAN MOVING FORWARD: Rad Onc Steroids Mobility strength building INDIVIDUALIZED FALL PREVENTION INTERVENTIONS: Patient-specific fall risk factors per assessment: [current deficits]: Generalized weakness, IV sites Assistance [level of assistance required for transfers and ambulation]: 2A walker Supervision [direct monitoring required during toileting and ADLs]: Hands on Surveillance [continuous indirect monitoring]: Purposeful rounding, safety checks, call lozano within reach. Patient-specific fall prevention interventions for sensory deficits provided, if applicable: [X] Yes CPG GOAL OUTCOME EVALUATION: Nuha Powell - 08/02/2021 2:29 PM EDT Network Systems Analyst Encounter Note Patient Name: Ilir Laird : [id number] MR#: [id number] Admit Date: 07/21/2021 10:24 AM Hospital Day 14 days Narrative: Follow up visit with Ilir at bedside. Antonina, Ilir's daughter, was on her way out as the city council member reintroduced self/role and merchandise team manager services. Antonina immediately expressed her appreciation for the visit, as she is unable to be present at bedside daily. During the visit the city council member facilitated a spiritual exploration with Ilir. During that conversation he shared that he is not much of a orthodox-goer, and that he nonetheless believes in the man above. Further into the discussion Ilir shared that his health decline has been difficult to process emotionally given how active he is. He shared his love for working as his comfort spot, and how his medical status seemed to have declined so quickly, without much warning. Ilir became tearful during the visit, as he expressed a heightened awareness around his aging. The city council member offered a calm and accepting presence while reflecting back to Ilir the importance of his emotional process. When prompted, Babarxpressed how it can be difficult to allow himself the permission to cry, and that this has been a significant shift for him. The city council member concluded the visit by normalizing Ilir's emotions and inviting grief, as it comes. Intervention and Outcome: Spiritual conversation, active listening, spiritual exploration and meaning-making. Follow-up: Monitor, available as needed. Time in Direct Care: 30mn Nuha Powell 08/04/2021 Stephanie Bird APRN - 08/02/2021 12:35 PM EDT Hospital Medicine Daily Progress Note Admit Date: 07/21/2021 Hospital Day 12 days Active Hospital Problems Diagnosis ??? Right sided weakness ??? Right hemiplegia Resolved Hospital Problems No resolved problems to display. 24 Hour Events: -No acute overnight events -Patient seen and evaluated in person at bedside -Patient's former and sister visited yesterday morning -Daughter Antonina visiting today ROS: Denies fever, chills, malaise, PINEDA, lightheadedness, chest pain, palpitations, SOB, dyspnea, N/V/D, constipation, dysuria, flank pain, edema? Physical Exam Vitals Range last 24 hrs Temperature Temp: [36.3 ??C (97.4 ??F)-36.6 ??C (97.9 ??F)] Heart Rate Heart Rate: [66] Blood Pressure BP: (116-138)/(63-75) Respiratory Rate Resp: [16-20] SpO2 SpO2: [91 %-94 %] Intake/Output Summary (Last 24 hours) at 08/02/2021 1235 Last data filed at 08/02/2021 0804 Gross per 24 hour Intake 740 ml Output 600 ml Net 140 ml No data found. BMI: Weight: 79.4 kg (175 lb) (07/21/21 1039) BMI (Calculated): 26.61 BMI Classification: Over Weight Estimated Creatinine Clearance: 79.4 mL/min (A) (based on SCr of 0.79 mg/dL (L)). CONSTITUTIONAL:??Patient is an elderly appearing gentleman,??sitting??comfortably in bed??upon entering room.??No acute distress. Breathing comfortably on room air??and able to communicate in full sentences.?? HEENT:??Normocephalic, atraumatic. Bilateral sclera anicteric and without injection. No conjunctivalexudate or injection.??Right eyelid with mild inversion but without evidence of trauma to surrounding eye tissues.??Mucous membranes moist. NECK: Trachea midline, no evidence of thyromegaly. No elevation in JVP appreciated.?? CHEST:??S1S2, RRR, no murmurs, rubs, clicks.?? LUNGS:??Respiratory effort and expansion good, equal, and symmetric bilaterally. Bilateral lung sherwood clear to auscultation with no adventitious sounds noted.?? ABDOMEN:??Round, soft, non-tender to palpation. Bowel sounds normoactive throughout. No masses or hepatosplenomegaly noted.?? EXTREMITIES:??Distal extremities warm and well perfused x4. Radial pulses +2, equal, and symmetric. Pedal pulses +1, equal, and symmetric.?? SKIN:??Warm and dry to touch.?? NEURO:??Right pupil slightly larger than left. Reactive equally to light. EOMI. Alert and oriented x4. Right sided hemiplegia most notable in right upper extremity. Supervisor Particleboard strength??now 5/5 on R and 5/5 of left. Right dorsiflexion and extension 3-4/5. Left dorsiflexion and extension 5/5. No additional focal deficit noted.?? PSYCH:??Affect pleasant. Patient cooperative. Speech pattern and speed appropriate.? Studies reviewed in eDH. Remarkable for the following: LABS: Recent Labs 08/01/2131107/30/21 0847 07/29/21 0724 WBC 18.8* 16.1* 16.7* HGB 13.6* 14.3 14.1 HCT 39.5* 42.6 40.6 PLATELET 125* 136* 152 Recent Labs 08/02/21 04308/01/2131107/31/21 0541 NA 130* 128* 131* K 4.7 4.5 4.6 CL 97* 95* 98 CO2 21* 22 20* BUN 27* 28* 29* CREATININE 0.79* 0.97 0.72* Recent Labs 07/29/21 0724 AST 17 ALT 21 ALKPHOS 75 BILITOT 0.3 BILIDIR 0.1 Recent Labs 08/02/21 04308/01/2131107/31/21 0541 CALCIUM 8.0* 8.1* 8.2* No results for input(s): PT, INR, PTT in the last 168 hours. No results for input(s): CK, TROPONINT in the last 168 hours. FSBG Trend No results for input(s): POCGLU in the last 72 hours. MICRO: No results for input(s): URINECULTURE in the last 720 hours. No results for input(s): GRAMSTAIN, BFCX, LOWERRESPCX, TISSUECX in the last 720 hours. No results for input(s): BLOODCX in the last 720 hours. ECG: No results for input(s): DIAGLINE, QTCCALC in the last 720 hours. VASCULAR: No results for input(s): VBTEXTRPT in the last 720 hours. IMAGING: Results for orders placed or performed during the hospital encounter of 07/21/21 CT Head wo Contrast (Generic) (Exam End: 07/21/2021 11:08 AM) Impression Increased size of hyperdense metastases along both cerebral convexities. Increased left frontoparietal vasogenic edema, sulcal effacement and mass effect on the left lateral ventricle. Similar vasogenic edema surrounding the right frontal convexity lesions. Thank you for letting us participate in the care of this patient. If you are a health care provider and have any questions regarding this report, please contact the number below. For patients who have questions please contact the health lead caregiver that requested your imaging first. Electronically signed by: Debo Davies MD, [facility] ([phone]), at 07/21/2021 11:33 AM MRI Brain wwo Contrast (Generic) (Exam End: 07/21/2021 3:51 PM) Impression 1. 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 2. Mild interval enlargement of 2 posterior right frontal metastatic lesions and a new subcentimeter metastatic lesion in the anteromedial left temporal lobe. Thank you for letting us participate in the care of this patient. If you are a health care provider and have any questions regarding this report, please contact the number below. For patients who have questions please contact the health lead caregiver that requested your imaging first. Electronically signed by: Hemant Vanegas MD, [facility] ([phone]), at 07/21/2021 4:[address] Rad Onc Neuro Interp Only (Exam End: 07/22/2021 3:34 PM) Impression Expected findings. Thank you for letting us participate in the care of this patient. If you are a health care provider and have any questions regarding this report, please contact the number below. For patients who have questions please contact the health lead caregiver that requested your imaging first. Electronically signed by: Hemant Vanegas MD, [facility] ([phone]), at 07/22/2021 4:12 PM Inpatient Medications: Scheduled ??? dexamethasone inj 4 mg Intravenous Q6H CORIN ??? memantine 5 mg Oral Daily Followed by ??? [START ON 08/06/2021] memantine 5 mg Oral BID ??? [START ON 08/13/2021] memantine 10 mg Oral QAM And ??? [START ON 08/13/2021] memantine 5 mg Oral QPM ??? [START ON 08/20/2021] memantine 10 mg Oral BID ??? calcium carbonate 500 mg Oral BID ??? atorvastatin 80 mg Oral QPM ??? levETIRAcetam 1,500 mg Oral BID ??? metoprolol tartrate 12.5 mg Oral BID ??? pantoprazole EC 40 mg Oral Daily ??? sodium chloride 1 g Oral TID ??? sodium chloride 0.9 % (flush) 5 mL Intravenous BID ??? heparin (porcine) 5,000 Units Subcutaneous Q8H CORIN ??? divalproex EC 500 mg Oral BID Continuous infusions: PRN: carboxymethylcellulose, bisacodyL, acetaminophen, LORazepam, sodium chloride 0.9 % (flush), lidocaine, melatonin Assessment: Mr. 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 He was admitted to hospital medicine with an MRI significant for evidence of brain lesion recurrence and enlargement of metastatic lesions. Given the extensive nature of metastasis as well as rapid growth of previously debulked tumor,surgical intervention was deferred, IV steroids were started, and the patient was started on whole brain radiation per Radiation Oncology (first session 07/22??through 08/10 for fourteen sessions).?? Interval History: Following discussion with Dr. Laura, will begin to wean IV steroids to eventual oral taper. Plan to transition to 4mg IV q 6 for 24 hours followed by 4mg PO q6 with goal of TID dosing at the time ofdischarge. Plan: # Metastatic NSCLC # Brain mets - rapidly progressive # Right sided hemiplegia, acute - 2/2 rapidly progressive mets # Swelling of brain, post-operative changes and 2/2 mets # Worsening acute seizure activity 2/2 brain mets - MRI brain showed interval metastatic recurrence in 2 prior LT surgical beds with shifting edema, mild interval enlargement of 2 posterior RT frontal metastatic lesions and new sub-cm metastatic lesion in LT temporal lobe - Case discussed with neurosurgery who recommended Decadron 10mg IVx1 followed by 6mg Q6H IV - S/P Keppra load 1gm IV x1 - will now continue home Keppra at 1500mg BID - Ativan 0.5mg PRN seizures - Seizure precautions-following risk benefit discussion with the patient and lack of evidence of reccurent seizure, seizure precautions were discontinued. Patient agreeable to reimplementation if seizures should reoccur.?? - Fall risk- Fall precautions ordered?? - COMMUNICATION STUDIES PROFESSOR evaluation- cleared for regular diet?? - Cont home sodium tablets- previously worked up hyponatremia as SIADH - goal sbp 90-160 - Q4H neuro checks: ?- ??if acute twitching, would discuss with neurology immediately givenconcern for seizure and possible need for vEEG or Depakote load ?- if acute worsening of neuro exam, may then be candidate for Mannitol. Very poor candidate for surgery given aggressive nature of malignancy and number of lesions. Additionally concern about post-op swelling delaying radiation - Neurology, neurosurgery, oncology, radiation oncology and palliative input greatly appreciated - Wean IV steroids to 4mg q 6 hours x24 hours. - Will start whole brain radiation therapy today for 14 planned sessions - anticipate completion near [facility] if pt otherwise medically ready for discharge and cleared for home; if requires rehab, anticipate would complete course here. -Titrate Memantine for prophylactic protection in the setting of whole brain radiation - Given GOC as above, will engage PT/OT. ?? # Leukocytosis, chronic - stable - in setting of chronic steroid use - no sign of active infection ?? # CAD with h/o 4v CABG # HTN # HLD - Cont??Beta Cassie, and statin IV access/ MIVF PIV Tubes/ Drains N/A DVT prophylaxis Heparin PT/OT/COMMUNICATION STUDIES PROFESSOR ordered Wound care N/A Anticipated Disposition Acute Rehab Team Pager ( Coverage 02/10): [phone] Family Update Daughter Antonina updated at bedside PCP Myriam Riggins MD SHARED VISIT This patient was seen in conjunction with Dr. Ji Blanco as part of a shared visit. Stephanie Brown Pelon, ROLLER REPAIRER 08/02/2021 Ji Blanco MD - 08/02/2021 11:42 AM EDT [facility] Medicine Daily Progress Note Admit Date: 07/21/2021 Hospital Day 12 days Active Hospital Problems Diagnosis ??? Right sided weakness ??? Right hemiplegia Resolved Hospital Problems No resolved problems to display. 24 Hour Events: -No acute overnight events -Patient seen and evaluated in person at bedside ROS: ??Denies fever, chills, malaise, PINEDA, lightheadedness, chest pain, palpitations, SOB, dyspnea, N/V/D,constipation, dysuria, flank pain, edema?? Physical Exam Vitals Range last 24 hrs Temperature Temp: [36.3 ??C (97.4 ??F)-36.6 ??C (97.9 ??F)] Heart Rate Heart Rate: [66] Blood Pressure BP: (116-138)/(63-75) Respiratory Rate Resp: [16-20] SpO2 SpO2: [91 %-94 %] Intake/Output Summary (Last 24 hours) at 08/02/2021 1142 Last data filed at 08/02/2021 0804 Gross per 24 hour Intake 740 ml Output 825 ml Net -85 ml No data found. BMI: Weight: 79.4 kg (175 lb) (07/21/21 1039) BMI (Calculated): 26.61 BMI Classification: Over Weight Estimated Creatinine Clearance: 79.4 mL/min (A) (based on SCr of 0.79 mg/dL (L)). CONSTITUTIONAL:??Patient is an elderly appearing gentleman,??sitting comfortably in bedside chair HEENT:??Mucous membranes moist. NECK: No elevation in JVP appreciated.?? CHEST:??S1S2, RRR, no murmurs, rubs, clicks.?? LUNGS:??no crackles or wheezing ABDOMEN:??non-tender to palpation EXTREMITIES:??Radial pulses +2, equal, and symmetric. SKIN:??Warm and dry to touch.?? NEURO:??Right pupil slightly larger than left. Reactive equally to light. Alert and oriented x4. Right sided hemiplegia most notable in right upper extremity. Supervisor Particleboard strength now 5/5 on R and 5/5 of left. R arm flexion/extension 5/5. Right ankle dorsiflexion and extension 3/5. Left ankle dorsiflexion and extension 5/5. Able to raise both arms parallel though unable to control return to midline of R arm. PSYCH:??Affect pleasant. Patient cooperative. Speech pattern and speed appropriate.?? Studies reviewed in eDH. Remarkable for the following: LABS: Recent Labs 08/01/2131107/30/21 0847 07/29/21 0724 WBC 18.8* 16.1* 16.7* HGB 13.6* 14.3 14.1 HCT 39.5* 42.6 40.6 PLATELET 125* 136* 152 Recent Labs 08/02/21 04308/01/212 07/31/21 0541 NA 130* 128* 131* K 4.7 4.5 4.6 CL 97* 95* 98 CO2 21* 22 20* BUN 27* 28* 29* CREATININE 0.79* 0.97 0.72* Recent Labs 07/29/21 0724 AST 17 ALT 21 ALKPHOS 75 BILITOT 0.3 BILIDIR 0.1 Recent Labs 08/02/21 04308/01/2131107/31/21 0541 CALCIUM 8.0* 8.1* 8.2* No results for input(s): PT, INR, PTT in the last 168 hours. No results for input(s): CK, TROPONINT in the last 168 hours. FSBG Trend No results for input(s): POCGLU in the last 72 hours. MICRO: No results for input(s): URINECULTURE in the last 720 hours. No results for input(s): GRAMSTAIN, BFCX, LOWERRESPCX, TISSUECX in the last 720 hours. No results for input(s): BLOODCX in the last 720 hours. ECG: No results for input(s): DIAGLINE, QTCCALC in the last 720 hours. VASCULAR: No results for input(s): VBTEXTRPT in the last 720 hours. IMAGING: Results for orders placed or performed during the hospital encounter of 07/21/21 CT Head wo Contrast (Generic) (Exam End: 07/21/2021 11:08 AM) Impression Increased size of hyperdense metastases along both cerebral convexities. Increased left frontoparietal vasogenic edema, sulcal effacement and mass effect on the left lateral ventricle. Similar vasogenic edema surrounding the right frontal convexity lesions. Thank you for letting us participate in the care of this patient. If you are a health care provider and have any questions regarding this report, please contact the number below. For patients who have questions please contact the health lead caregiver that requested your imaging first. Electronically signed by: Debo Davies MD, [facility] ([phone]), at 07/21/2021 11:33 AM MRI Brain wwo Contrast (Generic) (Exam End: 07/21/2021 3:51 PM) Impression 1. 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 2. Mild interval enlargement of 2 posterior right frontal metastatic lesions and a new subcentimeter metastatic lesion in the anteromedial left temporal lobe. Thank you for letting us participate in the care of this patient. If you are a health care provider and have any questions regarding this report, please contact the number below. For patients who have questions please contact the health lead caregiver that requested your imaging first. Electronically signed by: Hemant Vanegas MD, [facility] ([phone]), at 07/21/2021 4:[address] Rad Onc Neuro Interp Only (Exam End: 07/22/2021 3:34 PM) Impression Expected findings. Thank you for letting us participate in the care of this patient. If you are a health care provider and have any questions regarding this report, please contact the number below. For patients who have questions please contact the health lead caregiver that requested your imaging first. Electronically signed by: Hemant Vanegas MD, [facility] ([phone]), at 07/22/2021 4:12 PM Inpatient Medications: Scheduled ??? memantine 5 mg Oral Daily Followed by ??? [START ON 08/06/2021] memantine 5 mg Oral BID ??? [START ON 08/13/2021] memantine 10 mg Oral QAM And ??? [START ON 08/13/2021] memantine 5 mg Oral QPM ??? [START ON 08/20/2021] memantine 10 mg Oral BID ??? calcium carbonate 500 mg Oral BID ??? atorvastatin 80 mg Oral QPM ??? levETIRAcetam 1,500 mg Oral BID ??? metoprolol tartrate 12.5 mg Oral BID ??? pantoprazole EC 40 mg Oral Daily ??? sodium chloride 1 g Oral TID ??? dexamethasone inj 6 mg Intravenous Q6H CORIN ??? sodium chloride 0.9 % (flush) 5 mL Intravenous BID ??? heparin (porcine) 5,000 Units Subcutaneous Q8H CORIN ??? divalproex EC 500 mg Oral BID Continuous infusions: PRN: carboxymethylcellulose, bisacodyL, acetaminophen, LORazepam, sodium chloride 0.9 % (flush), lidocaine, melatonin Assessment: Mr. 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 He was admitted to hospital medicine with an MRI significant for evidence of brain lesion recurrence and enlargement of metastatic lesions. Given the extensive nature of metastasis as well as rapid growth of previously debulked tumor,surgical intervention was deferred, IV steroids were started, and the patient was started on whole brain radiation per Radiation Oncology (first session 07/22, fourteen sessions total, anticipated end-date 08/10).? Plan:?? # Metastatic NSCLC # Brain mets - rapidly progressive # Right sided hemiplegia, acute - 2/2 rapidly progressive mets # Cerebral edema secondary to post-operative changes and secondary to metastatic disease # Worsening acute seizure activity 2/2 brain mets - MRI brain showed interval metastatic recurrence in 2 prior LT surgical beds with shifting edema, mild interval enlargement of 2 posterior RT frontal metastatic lesions and new sub-cm metastatic lesion in LT temporal lobe - Case discussed with neurosurgery who recommended Decadron 10mg IVx1 followed by 6mg Q6H IV - S/P Keppra load 1gm IV x1 - will now continue home Keppra at 1500mg BID - Ativan 0.5mg PRN seizures - Seizure precautions-following risk benefit discussion with the patient and lack of evidence of reccurent seizure, seizure precautions were discontinued. Patient agreeable to reimplementation if seizures should reoccur.?? - Fall risk- Fall precautions ordered?? - COMMUNICATION STUDIES PROFESSOR evaluation- cleared for regular diet?? - goal sbp 90-160 - depatkoe 500 mg BID, last trough level 37 on 07/29 - Q4H neuro checks: ?- ??if acute twitching, would discuss with neurology immediately givenconcern for seizure and possible need for vEEG or Depakote load ?- if acute worsening of neuro exam, may then be candidate for Mannitol. Very poor candidate for surgery given aggressive nature of malignancy and number of lesions. Additionally concern about post-op swelling delaying radiation - Neurology, neurosurgery, oncology, radiation oncology and palliative input greatly appreciated - Will continue with IV steroids for now, duration/dosing to be determined - Will start whole brain radiation therapy today for 14 planned sessions - anticipate completion near . if pt otherwise medically ready for discharge and cleared for home; if requires rehab, anticipate would complete course here. - Given GOC as above, will engage PT/OT. 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 # Leukocytosis, chronic - stable - in setting of chronic steroid use - no sign of active infection ?? # CAD with h/o 4v CABG # HTN # HLD - Cont??Beta Cassie, and statin IV access/ MIVF PIV Tubes/ Drains N/A DVT prophylaxis Heparin PT/OT/COMMUNICATION STUDIES PROFESSOR ordered Wound care N/A Anticipated Disposition TBD Team Pager (MD Coverage 02/10): [phone] Family Update Daughter Kaylan in person 08/02 PCP Myraim Riggins MD SHARED VISIT n/a I have examined the patient myself and personally reviewed all studies. 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 Presley Guerin MD with new (R) sided twitching and (R) hemiplegia. MRI brain with evidence of recurrence of brain mets and new lesions as well per hospital medicine team report. Interval History: NAEO, increasing strength in ANDRESSA LE. Denies seizure activity & fasciculations. Social History: Ilir typically??lives??alone in a house in [place], [place] with his dog. Pt reports that he has a ramp to enter with bilateral rails. Pt has one level home with a basement. Pt reports thathe sleeps on the sofa at times. Pt has a tub/shower combo with GB.?? DME:??Walker, wheelchair?? Baseline ADL/Mobility:??Prior to admission;??Pt was at [facility] getting rehab s/p last hospital admission and then discharged home. Pt was home for one day prior to needing to return to hospital due to increased weakness in R hemibody. 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 Pt daughter Antonina, lives farther away, but is supportive. ?? Precautions/Special Considerations: Code Status: Limitations , High risk for skin breakdown, At riskto fall, Seizure precautions, Maintain HOB elevation per Dr. Guerin, Maintain SBP 90-160, (R) sided weakness Lines: Marcellus, Telemetry, PIV Activity Orders: assume AAT per Diet: Regular adult diet Mobility and Positioning Recommendations: ?? Pt to utilize FWW and assist x 2 for stand-pivot transfers with nursing. Recommend wearing R AFO and shoe, one person must assist with lifting/moving RLE ?? ALTERNATIVELY, Patient may transfer between bed and recliner chair by dropping arm & laterally scooting with 2 assist ?? Please encourage up to chair for meal times as able. Subjective: Thank you so so much for coming. I know I can get stronger if I keep working Can someone work with me again tomorrow? Objective: Patient seen for physical therapy and demonstrated the following: Pain: no c/o pain during session Vital Signs: VSS throughout Mental Status: alert, oriented to person, place, and time Vision: glasses Skin: intact that was observed Musculoskeletal: ROM: LEs stiff, but grossly WFL Strength: LLE WFL, RLE 3-/5 at the hip and knee Sensation: light touch minimally decreased to R foot Bed Mobility: HOB elevated, with bed rails Supine to Sit: Marimar x1 Sit to Supine: Marimar x1 Transfers: Sit to Stand: 8 repetitions with Marimar x1 Stand to Sit: Marimar x1 Bed <> Wheelchair: 2 repetitions with modA x1 squat-pivot with safety belt Balance: Sitting: good Standing Static: fair- with FWW Standing Dynamic / Gait: poor Therex: not performed today Pt left in bedside recliner chair, with all needs met and with call lozano in reach following visit. Assessment: Ilir Laird was seen today for physical therapy treatment. Patient was a very pleasant and motivated participant, and continues to demonstrate gains with every session. Notably today he required less assist with bed- mobility, [id number]-wr-aqubvo, and squat-pivot transfers. Even so, he continuesto demonstrate impairments in strength, balance, and activity tolerance. As a result he will benefitfrom ongoing IP PT in house, as well as d/c to rehab facility to maximize function. Discharge Recommendations: Based on the current findings, Anticipated Discharge Disposition (PT): acute rehabilitation facilitywhen medically ready for hospital discharge. Patient is extremely motivated and can likely tolerate a large amount of therapy; he would be an excellent candidate for acute rehab Consult Recommendations: No other consults recommended at this time. Equipment needs: Anticipated Equipment Needs at Discharge (PT): to be determinedTBD Goals: To be achieved by 08/10/21: 1. Pt. to demonstrate knowledge of safety limitations and precautions and will appropriately requestassistance for functional activities and to mobilize. 2. Pt. to demonstrate understanding of appropriate seated LE exercises. MET 3. Pt to participate in standardized balance assessment. 4. Pt. to perform bed mobility independently from flat bed. Improving 5. Pt. to perform transfers with modified independence using LRAD. Improving 6. Pt. to ambulate >/=150 feet with modified independence using LRAD. 7. Family or caregiver to demonstrate understanding of therapeutic interventions to support the careof the patient. 8. Pt will tolerate progression towards upright with stable vital signs. MET Plan: Therapy Frequency (PT): 2-4 times/wk for therapy interventions as outlined in initial evaluation. Patient agrees with plan as stated. Time IN / OUT: 7709-6650 Total Minutes, Physical Therapy: 40 (therapeutic activity) Elaine Fernández, PT Pager: [phone] Physical Therapy Inpatient Rehabilitation Department Stephanie Bird APRN - 08/01/2021 2:15 PM EDT [facility] Medicine Daily Progress Note Admit Date: 07/21/2021 Hospital Day 11 days Active Hospital Problems Diagnosis ??? Right sided weakness ??? Right hemiplegia Resolved Hospital Problems No resolved problems to display. 24 Hour Events: -No acute events overnight -Patient seen and evaluated in person at bedside -Reports increasing strength in bilateral upper extremities -Endorses continued weakness, particularly in right ankle -Remains highly motivated rehab -Denies seizure activity or fasciculations at this time ROS: Denies fever, chills, malaise, PINEDA, lightheadedness, chest pain, palpitations, SOB, dyspnea, N/V/D, constipation, dysuria, flank pain, edema? Physical Exam Vitals Range last 24 hrs Temperature Temp: [36.3 ??C (97.4 ??F)-36.7 ??C (98.1 ??F)] Heart Rate Heart Rate: [58-67] Blood Pressure BP: (115-136)/(64-73) Respiratory Rate Resp: [17-20] SpO2 SpO2: [90 %-94 %] Intake/Output Summary (Last 24 hours) at 08/01/2021 1415 Last data filed at 08/01/2021 1148 Gross per 24 hour Intake 920 ml Output 1275 ml Net -355 ml No data found. BMI: Weight: 79.4 kg (175 lb) (07/21/21 1039) BMI (Calculated): 26.61 BMI Classification: Over Weight Estimated Creatinine Clearance: 64.6 mL/min (based on SCr of 0.97 mg/dL). CONSTITUTIONAL:??Patient is an elderly appearing gentleman,??sitting??comfortably in bed??upon entering room.??No acute distress. Breathing comfortably on room air??and able to communicate in full sentences.?? HEENT:??Normocephalic, atraumatic. Bilateral sclera anicteric and without injection. No conjunctivalexudate or injection.??Right eyelid with mild inversion but without evidence of trauma to surrounding eye tissues.??Mucous membranes moist. NECK: Trachea midline, no evidence of thyromegaly. No elevation in JVP appreciated.?? CHEST:??S1S2, RRR, no murmurs, rubs, clicks.?? LUNGS:??Respiratory effort and expansion good, equal, and symmetric bilaterally. Bilateral lung sherwood clear to auscultation with no adventitious sounds noted.?? ABDOMEN:??Round, soft, non-tender to palpation. Bowel sounds normoactive throughout. No masses or hepatosplenomegaly noted.?? EXTREMITIES:??Distal extremities warm and well perfused x4. Radial pulses +2, equal, and symmetric. Pedal pulses +1, equal, and symmetric.?? SKIN:??Warm and dry to touch.?? NEURO:??Right pupil slightly larger than left. Reactive equally to light. EOMI. Alert and oriented x4. Right sided hemiplegia most notable in right upper extremity. Supervisor Particleboard strength??now 07/14 on R and 5/5 of left. Right dorsiflexion and extension 3-4/5. Left dorsiflexion and extension 5/5. No additional focal deficit noted.?? PSYCH:??Affect pleasant. Patient cooperative. Speech pattern and speed appropriate.?? Studies reviewed in eDH. Remarkable for the following: LABS: Recent Labs 08/01/21 0312 07/30/21 0847 07/29/21 0724 WBC 18.8* 16.1* 16.7* HGB 13.6* 14.3 14.1 HCT 39.5* 42.6 40.6 PLATELET 125* 136* 152 Recent Labs 08/01/21 0312 07/31/21 0541 07/30/21 0847 NA 128* 131* 127* K 4.5 4.6 4.5 CL 95* 98 93* CO2 22 20* 18* BUN 28* 29* 26* CREATININE 0.97 0.72* 0.87 Recent Labs 07/29/21 0724 07/26/21 0428 AST 17 14 ALT 21 19 ALKPHOS 75 93 BILITOT 0.3 0.4 BILIDIR 0.1 -- Recent Labs 08/01/21 0312 07/31/21 0541 07/30/21 0847 07/27/21 0502 07/26/21 0428 CALCIUM 8.1* 8.2* 7.9* < > 8.0* PHOS -- -- -- -- 3.5 < > = values in this interval not displayed. No results for input(s): PT, INR, PTT in the last 168 hours. No results for input(s): CK, TROPONINT in the last 168 hours. FSBG Trend No results for input(s): POCGLU in the last 72 hours. MICRO: No results for input(s): URINECULTURE in the last 720 hours. No results for input(s): GRAMSTAIN, BFCX, LOWERRESPCX, TISSUECX in the last 720 hours. No results for input(s): BLOODCX in the last 720 hours. ECG: No results for input(s): DIAGLINE, QTCCALC in the last 720 hours. VASCULAR: No results for input(s): VBTEXTRPT in the last 720 hours. IMAGING: Results for orders placed or performed during the hospital encounter of 07/21/21 CT Head wo Contrast (Generic) (Exam End: 07/21/2021 11:08 AM) Impression Increased size of hyperdense metastases along both cerebral convexities. Increased left frontoparietal vasogenic edema, sulcal effacement and mass effect on the left lateral ventricle. Similar vasogenic edema surrounding the right frontal convexity lesions. Thank you for letting us participate in the care of this patient. If you are a health care provider and have any questions regarding this report, please contact the number below. For patients who have questions please contact the health lead caregiver that requested your imaging first. Electronically signed by: Debo Davies MD, [facility] ([phone]), at 07/21/2021 11:33 AM MRI Brain wwo Contrast (Generic) (Exam End: 07/21/2021 3:51 PM) Impression 1. 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 2. Mild interval enlargement of 2 posterior right frontal metastatic lesions and a new subcentimeter metastatic lesion in the anteromedial left temporal lobe. Thank you for letting us participate in the care of this patient. If you are a health care provider and have any questions regarding this report, please contact the number below. For patients who have questions please contact the health lead caregiver that requested your imaging first. Electronically signed by: Hemant Vanegas MD, [facility] ([phone]), at 07/21/2021 4:[address] Rad Onc Neuro Interp Only (Exam End: 07/22/2021 3:34 PM) Impression Expected findings. Thank you for letting us participate in the care of this patient. If you are a health care provider and have any questions regarding this report, please contact the number below. For patients who have questions please contact the health lead caregiver that requested your imaging first. Electronically signed by: Hemant Vanegas MD, [facility] ([phone]), at 07/22/2021 4:12 PM Inpatient Medications: Scheduled ??? memantine 5 mg Oral Daily Followed by ??? [START ON 08/06/2021] memantine 5 mg Oral BID ??? [START ON 08/13/2021] memantine 10 mg Oral QAM And ??? [START ON 08/13/2021] memantine 5 mg Oral QPM ??? [START ON 08/20/2021] memantine 10 mg Oral BID ??? calcium carbonate 500 mg Oral BID ??? atorvastatin 80 mg Oral QPM ??? levETIRAcetam 1,500 mg Oral BID ??? metoprolol tartrate 12.5 mg Oral BID ??? pantoprazole EC 40 mg Oral Daily ??? sodium chloride 1 g Oral TID ??? dexamethasone inj 6 mg Intravenous Q6H CORIN ??? sodium chloride 0.9 % (flush) 5 mL Intravenous BID ??? heparin (porcine) 5,000 Units Subcutaneous Q8H CORIN ??? divalproex EC 500 mg Oral BID Continuous infusions: PRN: carboxymethylcellulose, bisacodyL, acetaminophen, LORazepam, sodium chloride 0.9 % (flush), lidocaine, melatonin Assessment: Mr. 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 He was admitted to hospital medicine with an MRI significant for evidence of brain lesion recurrence and enlargement of metastatic lesions. Given the extensive nature of metastasis as well as rapid growth of previously debulked tumor,surgical intervention was deferred, IV steroids were started, and the patient was started on whole brain radiation per Radiation Oncology (first session 07/22 through 08/10 for fourteen sessions).? Interval History: Mr. Laird continues to improve in the setting of in place rehabilitation. At this time, will anticipate completion of radiation while inpatient with discharge to rehab following. Will also touch base with radiation oncology regarding continuation and plan for IV steroids and plausibility for transition to oral in anticipation of steroid taper. Plan: # Metastatic NSCLC # Brain mets - rapidly progressive # Right sided hemiplegia, acute - 2/2 rapidly progressive mets # Swelling of brain, post-operative changes and 2/2 mets # Worsening acute seizure activity 2/2 brain mets - MRI brain showed interval metastatic recurrence in 2 prior LT surgical beds with shifting edema, mild interval enlargement of 2 posterior RT frontal metastatic lesions and new sub-cm metastatic lesion in LT temporal lobe - Case discussed with neurosurgery who recommended Decadron 10mg IVx1 followed by 6mg Q6H IV - S/P Keppra load 1gm IV x1 - will now continue home Keppra at 1500mg BID - Ativan 0.5mg PRN seizures - Seizure precautions-following risk benefit discussion with the patient and lack of evidence of reccurent seizure, seizure precautions were discontinued. Patient agreeable to reimplementation if seizures should reoccur.?? - Fall risk- Fall precautions ordered?? - COMMUNICATION STUDIES PROFESSOR evaluation- cleared for regular diet?? - Cont home sodium tablets- previously worked up hyponatremia as SIADH - goal sbp 90-160 - Q4H neuro checks: ?- ??if acute twitching, would discuss with neurology immediately givenconcern for seizure and possible need for vEEG or Depakote load ?- if acute worsening of neuro exam, may then be candidate for Mannitol. Very poor candidate for surgery given aggressive nature of malignancy and number of lesions. Additionally concern about post-op swelling delaying radiation - Neurology, neurosurgery, oncology, radiation oncology and palliative input greatly appreciated - Will continue with IV steroids for now but touch base wit radiation oncology - Will start whole brain radiation therapy today for 14 planned sessions - anticipate completion near [facility] if pt otherwise medically ready for discharge and cleared for home; if requires rehab, anticipate would complete course here. -Titrate Memantine for prophylactic protection in the setting of whole brain radiation - Given GOC as above, will engage PT/OT. ?? # Leukocytosis, chronic - stable - in setting of chronic steroid use - no sign of active infection ?? # CAD with h/o 4v CABG # HTN # HLD - Cont??Beta Cassie, and statin IV access/ MIVF PIV Tubes/ Drains N/A DVT prophylaxis Heparin PT/OT/COMMUNICATION STUDIES PROFESSOR ordered Wound care N/A Anticipated Disposition TBD Team Pager ( Coverage 02/10): [phone] Family Update Family updated at bedside this afternoon PCP Myriam Riggins MD SHARED VISIT This patient was seen in conjunction with Dr. Ji Blanco as part of a shared visit. Stephanie Brown Pelon, ROLLER REPAIRER 08/01/2021 Ji Blanco MD - 08/01/2021 2:07 PM EDT [facility] Medicine Daily Progress Note Admit Date: 07/21/2021 Hospital Day 11 days Active Hospital Problems Diagnosis ??? Right sided weakness ??? Right hemiplegia Resolved Hospital Problems No resolved problems to display. 24 Hour Events: -No acute overnight events -Patient seen and evaluated in person at bedside ROS: ??Denies fever, chills, malaise, PINEDA, lightheadedness, chest pain, palpitations, SOB, dyspnea, N/V/D,constipation, dysuria, flank pain, edema?? Physical Exam Vitals Range last 24 hrs Temperature Temp: [36.3 ??C (97.4 ??F)-36.7 ??C (98.1 ??F)] Heart Rate Heart Rate: [58-67] Blood Pressure BP: (115-136)/(64-73) Respiratory Rate Resp: [17-20] SpO2 SpO2: [90 %-94 %] Intake/Output Summary (Last 24 hours) at 08/01/2021 1407 Last data filed at 08/01/2021 1148 Gross per 24 hour Intake 920 ml Output 1275 ml Net -355 ml No data found. BMI: Weight: 79.4 kg (175 lb) (07/21/21 1039) BMI (Calculated): 26.61 BMI Classification: Over Weight Estimated Creatinine Clearance: 64.6 mL/min (based on SCr of 0.97 mg/dL). CONSTITUTIONAL:??Patient is an elderly appearing gentleman,??sitting comfortably in bedside chair HEENT:??Mucous membranes moist. NECK: No elevation in JVP appreciated.?? CHEST:??S1S2, RRR, no murmurs, rubs, clicks.?? LUNGS:??no crackles or wheezing ABDOMEN:??non-tender to palpation EXTREMITIES:??Radial pulses +2, equal, and symmetric. SKIN:??Warm and dry to touch.?? NEURO:??Right pupil slightly larger than left. Reactive equally to light. Alert and oriented x4. Right sided hemiplegia most notable in right upper extremity. Supervisor Particleboard strength now 5/5 on R and 5/5 of left. R arm flexion/extension 5/5. Right ankle dorsiflexion and extension 3/5. Left ankle dorsiflexion and extension 5/5. Able to raise both arms parallel though unable to control return to midline of R arm. PSYCH:??Affect pleasant. Patient cooperative. Speech pattern and speed appropriate.?? Studies reviewed in eDH. Remarkable for the following: LABS: Recent Labs 08/01/21 03107/30/21 0847 07/29/21 0724 WBC 18.8* 16.1* 16.7* HGB 13.6* 14.3 14.1 HCT 39.5* 42.6 40.6 PLATELET 125* 136* 152 Recent Labs 08/01/21 0312 07/31/21 0541 07/30/21 0847 NA 128* 131* 127* K 4.5 4.6 4.5 CL 95* 98 93* CO2 22 20* 18* BUN 28* 29* 26* CREATININE 0.97 0.72* 0.87 Recent Labs 07/29/21 0724 07/26/21 0428 AST 17 14 ALT 21 19 ALKPHOS 75 93 BILITOT 0.3 0.4 BILIDIR 0.1 -- Recent Labs 08/01/21 0312 07/31/21 0541 07/30/21 0847 07/27/21 0502 07/26/21 0428 CALCIUM 8.1* 8.2* 7.9* < > 8.0* PHOS -- -- -- -- 3.5 < > = values in this interval not displayed. No results for input(s): PT, INR, PTT in the last 168 hours. No results for input(s): CK, TROPONINT in the last 168 hours. FSBG Trend No results for input(s): POCGLU in the last 72 hours. MICRO: No results for input(s): URINECULTURE in the last 720 hours. No results for input(s): GRAMSTAIN, BFCX, LOWERRESPCX, TISSUECX in the last 720 hours. No results for input(s): BLOODCX in the last 720 hours. ECG: No results for input(s): DIAGLINE, QTCCALC in the last 720 hours. VASCULAR: No results for input(s): VBTEXTRPT in the last 720 hours. IMAGING: Results for orders placed or performed during the hospital encounter of 07/21/21 CT Head wo Contrast (Generic) (Exam End: 07/21/2021 11:08 AM) Impression Increased size of hyperdense metastases along both cerebral convexities. Increased left frontoparietal vasogenic edema, sulcal effacement and mass effect on the left lateral ventricle. Similar vasogenic edema surrounding the right frontal convexity lesions. Thank you for letting us participate in the care of this patient. If you are a health care provider and have any questions regarding this report, please contact the number below. For patients who have questions please contact the health lead caregiver that requested your imaging first. Electronically signed by: Debo Davies MD, [facility] ([phone]), at 07/21/2021 11:33 AM MRI Brain wwo Contrast (Generic) (Exam End: 07/21/2021 3:51 PM) Impression 1. 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 2. Mild interval enlargement of 2 posterior right frontal metastatic lesions and a new subcentimeter metastatic lesion in the anteromedial left temporal lobe. Thank you for letting us participate in the care of this patient. If you are a health care provider and have any questions regarding this report, please contact the number below. For patients who have questions please contact the health lead caregiver that requested your imaging first. Electronically signed by: Hemant Vanegas MD, [facility] ([phone]), at 07/21/2021 4:[address] Rad Onc Neuro Interp Only (Exam End: 07/22/2021 3:34 PM) Impression Expected findings. Thank you for letting us participate in the care of this patient. If you are a health care provider and have any questions regarding this report, please contact the number below. For patients who have questions please contact the health lead caregiver that requested your imaging first. Inpatient Medications: Scheduled ??? memantine 5 mg Oral Daily Followed by ??? [START ON 08/06/2021] memantine 5 mg Oral BID ??? [START ON 08/13/2021] memantine 10 mg Oral QAM And ??? [START ON 08/13/2021] memantine 5 mg Oral QPM ??? [START ON 08/20/2021] memantine 10 mg Oral BID ??? calcium carbonate 500 mg Oral BID ??? atorvastatin 80 mg Oral QPM ??? levETIRAcetam 1,500 mg Oral BID ??? metoprolol tartrate 12.5 mg Oral BID ??? pantoprazole EC 40 mg Oral Daily ??? sodium chloride 1 g Oral TID ??? dexamethasone inj 6 mg Intravenous Q6H CORIN ??? sodium chloride 0.9 % (flush) 5 mL Intravenous BID ??? heparin (porcine) 5,000 Units Subcutaneous Q8H CORIN ??? divalproex EC 500 mg Oral BID Continuous infusions: PRN: carboxymethylcellulose, bisacodyL, acetaminophen, LORazepam, sodium chloride 0.9 % (flush), lidocaine, melatonin Assessment: Mr. 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 He was admitted to hospital medicine with an MRI significant for evidence of brain lesion recurrence and enlargement of metastatic lesions. Given the extensive nature of metastasis as well as rapid growth of previously debulked tumor,surgical intervention was deferred, IV steroids were started, and the patient was started on whole brain radiation per Radiation Oncology (first session 07/22, fourteen sessions total, anticipated end-date 08/10).? Plan:?? # Metastatic NSCLC # Brain mets - rapidly progressive # Right sided hemiplegia, acute - 2/2 rapidly progressive mets # Cerebral edema secondary to post-operative changes and secondary to metastatic disease # Worsening acute seizure activity 2/2 brain mets - MRI brain showed interval metastatic recurrence in 2 prior LT surgical beds with shifting edema, mild interval enlargement of 2 posterior RT frontal metastatic lesions and new sub-cm metastatic lesion in LT temporal lobe - Case discussed with neurosurgery who recommended Decadron 10mg IVx1 followed by 6mg Q6H IV - S/P Keppra load 1gm IV x1 - will now continue home Keppra at 1500mg BID - Ativan 0.5mg PRN seizures - Seizure precautions-following risk benefit discussion with the patient and lack of evidence of reccurent seizure, seizure precautions were discontinued. Patient agreeable to reimplementation if seizures should reoccur.?? - Fall risk- Fall precautions ordered?? - COMMUNICATION STUDIES PROFESSOR evaluation- cleared for regular diet?? - goal sbp 90-160 - depatkoe 500 mg BID, last trough level 37 on 07/29 - Q4H neuro checks: ?- ??if acute twitching, would discuss with neurology immediately givenconcern for seizure and possible need for vEEG or Depakote load ?- if acute worsening of neuro exam, may then be candidate for Mannitol. Very poor candidate for surgery given aggressive nature of malignancy and number of lesions. Additionally concern about post-op swelling delaying radiation - Neurology, neurosurgery, oncology, radiation oncology and palliative input greatly appreciated - Will continue with IV steroids for now, duration/dosing to be determined - Will start whole brain radiation therapy today for 14 planned sessions - anticipate completion near [facility] if pt otherwise medically ready for discharge and cleared for home; if requires rehab, anticipate would complete course here. - Given GOC as above, will engage PT/OT. 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 # Leukocytosis, chronic - stable - in setting of chronic steroid use - no sign of active infection ?? # CAD with h/o 4v CABG # HTN # HLD - Cont??Beta Cassie, and statin IV access/ MIVF PIV Tubes/ Drains N/A DVT prophylaxis Heparin PT/OT/COMMUNICATION STUDIES PROFESSOR ordered Wound care N/A Anticipated Disposition TBD Team Pager ( Coverage 02/10): [phone] Family Update Daughter Kaylan in person 07/30 PCP Myriam Riggins MD SHARED VISIT n/a I have examined the patient myself and personally reviewed all studies. 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 Right sided weakness ??? Right hemiplegia Resolved Hospital Problems No resolved problems to display. 24 Hour Events: -No acute overnight events -Patient seen and evaluated in person at bedside ROS: ??Denies fever, chills, malaise, PINEDA, lightheadedness, chest pain, palpitations, SOB, dyspnea, N/V/D,constipation, dysuria, flank pain, edema?? Physical Exam Vitals Range last 24 hrs Temperature Temp: [36.5 ??C (97.7 ??F)-37.1 ??C (98.8 ??F)] Heart Rate Heart Rate: [60-72] Blood Pressure BP: (115-130)/(59-69) Respiratory Rate Resp: [17-18] SpO2 SpO2: [92 %-95 %] Intake/Output Summary (Last 24 hours) at 07/31/2021 1148 Last data filed at 07/31/2021 1130 Gross per 24 hour Intake 920 ml Output 1520 ml Net -600 ml No data found. BMI: Weight: 79.4 kg (175 lb) (07/21/21 1039) BMI (Calculated): 26.61 BMI Classification: Over Weight Estimated Creatinine Clearance: 87.1 mL/min (A) (based on SCr of 0.72 mg/dL (L)). CONSTITUTIONAL:??Patient is an elderly appearing gentleman,??sitting comfortably in bedside chair HEENT:??Mucous membranes moist. NECK: No elevation in JVP appreciated.?? CHEST:??S1S2, RRR, no murmurs, rubs, clicks.?? LUNGS:??no crackles or wheezing ABDOMEN:??non-tender to palpation EXTREMITIES:??Radial pulses +2, equal, and symmetric. SKIN:??Warm and dry to touch.?? NEURO:??Right pupil slightly larger than left. Reactive equally to light. Alert and oriented x4. Right sided hemiplegia most notable in right upper extremity. Supervisor Particleboard strength now 5/5 on R and 5/5 of left. R arm flexion/extension 5/5. Right ankle dorsiflexion and extension 3/5. Left ankle dorsiflexion and extension 5/5. Able to raise both arms parallel though unable to control return to midline of R arm. PSYCH:??Affect pleasant. Patient cooperative. Speech pattern and speed appropriate.?? Studies reviewed in eDH. Remarkable for the following: LABS: Recent Labs 07/30/21 0847 07/29/21 0724 07/27/21 0504 WBC 16.1* 16.7* 12.9* HGB 14.3 14.1 13.2* HCT 42.6 40.6 38.4* PLATELET 136* 152 162 Recent Labs 07/31/21 0541 07/30/21 0847 07/29/21 0724 NA 131* 127* 130* K 4.6 4.5 4.6 CL 98 93* 96* CO2 20* 18* 23 BUN 29* 26* 28* CREATININE 0.72* 0.87 0.81 Recent Labs 07/29/21 0724 07/26/21 0428 07/25/21 1144 AST 17 14 13 ALT 21 19 20 ALKPHOS 75 93 84 BILITOT 0.3 0.4 0.4 BILIDIR 0.1 -- -- Recent Labs 07/31/21 0541 07/30/21 0847 07/29/21 0724 07/27/21 0502 07/26/21 0428 CALCIUM 8.2* 7.9* 8.1* < > 8.0* PHOS -- -- -- -- 3.5 < > = values in this interval not displayed. No results for input(s): PT, INR, PTT in the last 168 hours. No results for input(s): CK, TROPONINT in the last 168 hours. FSBG Trend No results for input(s): POCGLU in the last 72 hours. MICRO: No results for input(s): URINECULTURE in the last 720 hours. No results for input(s): GRAMSTAIN, BFCX, LOWERRESPCX, TISSUECX in the last 720 hours. No results for input(s): BLOODCX in the last 720 hours. ECG: No results for input(s): DIAGLINE, QTCCALC in the last 720 hours. VASCULAR: No results for input(s): VBTEXTRPT in the last 720 hours. IMAGING: Results for orders placed or performed during the hospital encounter of 07/21/21 CT Head wo Contrast (Generic) (Exam End: 07/21/2021 11:08 AM) Impression Increased size of hyperdense metastases along both cerebral convexities. Increased left frontoparietal vasogenic edema, sulcal effacement and mass effect on the left lateral ventricle. Similar vasogenic edema surrounding the right frontal convexity lesions. Thank you for letting us participate in the care of this patient. If you are a health care provider and have any questions regarding this report, please contact the number below. For patients who have questions please contact the health lead caregiver that requested your imaging first. Electronically signed by: Debo Davies MD, [facility] ([phone]), at 07/21/2021 11:33 AM MRI Brain wwo Contrast (Generic) (Exam End: 07/21/2021 3:51 PM) Impression 1. 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 2. Mild interval enlargement of 2 posterior right frontal metastatic lesions and a new subcentimeter metastatic lesion in the anteromedial left temporal lobe. Thank you for letting us participate in the care of this patient. If you are a health care provider and have any questions regarding this report, please contact the number below. For patients who have questions please contact the health lead caregiver that requested your imaging first. Electronically signed by: Hemant Vanegas MD, [facility] ([phone]), at 07/21/2021 4:[address] Rad Onc Neuro Interp Only (Exam End: 07/22/2021 3:34 PM) Impression Expected findings. Thank you for letting us participate in the care of this patient. If you are a health care provider and have any questions regarding this report, please contact the number below. For patients who have questions please contact the health lead caregiver that requested your imaging first. Electronically signed by: Hemant Vanegas MD, [facility] ([phone]), at 07/22/2021 4:12 PM Inpatient Medications: Scheduled ??? memantine 5 mg Oral Daily Followed by ??? [START ON 08/06/2021] memantine 5 mg Oral BID ??? [START ON 08/13/2021] memantine 10 mg Oral QAM And ??? [START ON 08/13/2021] memantine 5 mg Oral QPM ??? [START ON 08/20/2021] memantine 10 mg Oral BID ??? calcium carbonate 500 mg Oral BID ??? atorvastatin 80 mg Oral QPM ??? levETIRAcetam 1,500 mg Oral BID ??? metoprolol tartrate 12.5 mg Oral BID ??? pantoprazole EC 40 mg Oral Daily ??? sodium chloride 1 g Oral TID ??? dexamethasone inj 6 mg Intravenous Q6H CORIN ??? sodium chloride 0.9 % (flush) 5 mL Intravenous BID ??? heparin (porcine) 5,000 Units Subcutaneous Q8H CORIN ??? divalproex EC 500 mg Oral BID Continuous infusions: PRN: carboxymethylcellulose, bisacodyL, acetaminophen, LORazepam, sodium chloride 0.9 % (flush), lidocaine, melatonin Assessment: Mr. 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 He was admitted to hospital medicine with an MRI significant for evidence of brain lesion recurrence and enlargement of metastatic lesions. Given the extensive nature of metastasis as well as rapid growth of previously debulked tumor,surgical intervention was deferred, IV steroids were started, and the patient was started on whole brain radiation per Radiation Oncology (first session 07/22, fourteen sessions total, anticipated end-date 08/10).? Plan:?? # Metastatic NSCLC # Brain mets - rapidly progressive # Right sided hemiplegia, acute - 2/2 rapidly progressive mets # Cerebral edema secondary to post-operative changes and secondary to metastatic disease # Worsening acute seizure activity 2/2 brain mets - MRI brain showed interval metastatic recurrence in 2 prior LT surgical beds with shifting edema, mild interval enlargement of 2 posterior RT frontal metastatic lesions and new sub-cm metastatic lesion in LT temporal lobe - Case discussed with neurosurgery who recommended Decadron 10mg IVx1 followed by 6mg Q6H IV - S/P Keppra load 1gm IV x1 - will now continue home Keppra at 1500mg BID - Ativan 0.5mg PRN seizures - Seizure precautions-following risk benefit discussion with the patient and lack of evidence of reccurent seizure, seizure precautions were discontinued. Patient agreeable to reimplementation if seizures should reoccur.?? - Fall risk- Fall precautions ordered?? - COMMUNICATION STUDIES PROFESSOR evaluation- cleared for regular diet?? - goal sbp 90-160 - depatkoe 500 mg BID, last trough level 37 on 07/29 - Q4H neuro checks: ?- ??if acute twitching, would discuss with neurology immediately givenconcern for seizure and possible need for vEEG or Depakote load ?- if acute worsening of neuro exam, may then be candidate for Mannitol. Very poor candidate for surgery given aggressive nature of malignancy and number of lesions. Additionally concern about post-op swelling delaying radiation - Neurology, neurosurgery, oncology, radiation oncology and palliative input greatly appreciated - Will continue with IV steroids for now, duration/dosing to be determined - Will start whole brain radiation therapy today for 14 planned sessions - anticipate completion [place] [facility] if pt otherwise medically ready for discharge and cleared for home; if requires rehab, anticipate would complete course here. - Given GOC as above, will engage PT/OT. 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 # Leukocytosis, chronic - stable - in setting of chronic steroid use - no sign of active infection ?? # CAD with h/o 4v CABG # HTN # HLD - Cont??Beta Cassie, and statin IV access/ MIVF PIV Tubes/ Drains N/A DVT prophylaxis Heparin PT/OT/COMMUNICATION STUDIES PROFESSOR ordered Wound care N/A Anticipated Disposition TBD Team Pager (MD Coverage 02/10): [phone] Family Update Daughter Kaylan in person 07/30 PCP Myriam Riggins MD SHARED VISIT n/a I have examined the patient myself and personally reviewed all studies. 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 Right sided weakness ??? Right hemiplegia Resolved Hospital Problems No resolved problems to display. 24 Hour Events: -No acute overnight events -Patient seen and evaluated in person at bedside ROS: ??Denies fever, chills, malaise, PINEDA, lightheadedness, chest pain, palpitations, SOB, dyspnea, N/V/D,constipation, dysuria, flank pain, edema?? Physical Exam Vitals Range last 24 hrs Temperature Temp: [36.5 ??C (97.7 ??F)-36.9 ??C (98.4 ??F)] Heart Rate Heart Rate: [58-67] Blood Pressure BP: (105-144)/(62-85) Respiratory Rate Resp: [16-18] SpO2 SpO2: [92 %-98 %] Intake/Output Summary (Last 24 hours) at 07/30/2021 1301 Last data filed at 07/30/2021 0813 Gross per 24 hour Intake 680 ml Output 1400 ml Net -720 ml No data found. BMI: Weight: 79.4 kg (175 lb) (07/21/21 1039) BMI (Calculated): 26.61 BMI Classification: Over Weight Estimated Creatinine Clearance: 72.1 mL/min (based on SCr of 0.87 mg/dL). CONSTITUTIONAL:??Patient is an elderly appearing gentleman,??sitting comfortably in bedside chair HEENT:??Mucous membranes moist. NECK: No elevation in JVP appreciated.?? CHEST:??S1S2, RRR, no murmurs, rubs, clicks.?? LUNGS:??no crackles or wheezing ABDOMEN:??non-tender to palpation EXTREMITIES:??Radial pulses +2, equal, and symmetric. SKIN:??Warm and dry to touch.?? NEURO:??Right pupil slightly larger than left. Reactive equally to light. Alert and oriented x4. Right sided hemiplegia most notable in right upper extremity. Supervisor Particleboard strength now 5/5 on R and 5/5 of left. R arm flexion/extension 5/5. Right ankle dorsiflexion and extension 3/5. Left ankle dorsiflexion and extension 5/5. Able to raise both arms parallel though unable to control return to midline of R arm. PSYCH:??Affect pleasant. Patient cooperative. Speech pattern and speed appropriate.?? Studies reviewed in eDH. Remarkable for the following: LABS: Recent Labs 07/30/21 0847 07/29/21 0724 07/27/21 0504 WBC 16.1* 16.7* 12.9* HGB 14.3 14.1 13.2* HCT 42.6 40.6 38.4* PLATELET 136* 152 162 Recent Labs 07/30/21 0847 07/29/21 0724 07/27/21 0502 NA 127* 130* 134* K 4.5 4.6 4.7 CL 93* 96* 100 CO2 18* 23 22 BUN 26* 28* 29* CREATININE 0.87 0.81 0.93 Recent Labs 07/29/21 0724 07/26/21 0428 07/25/21 1144 AST 17 14 13 ALT 21 19 20 ALKPHOS 75 93 84 BILITOT 0.3 0.4 0.4 BILIDIR 0.1 -- -- Recent Labs 07/30/21 0847 07/29/21 0724 07/27/21 0502 07/26/21 0428 CALCIUM 7.9* 8.1* 7.8* 8.0* PHOS -- -- -- 3.5 No results for input(s): PT, INR, PTT in the last 168 hours. No results for input(s): CK, TROPONINT in the last 168 hours. FSBG Trend No results for input(s): POCGLU in the last 72 hours. MICRO: No results for input(s): URINECULTURE in the last 720 hours. No results for input(s): GRAMSTAIN, BFCX, LOWERRESPCX, TISSUECX in the last 720 hours. No results for input(s): BLOODCX in the last 720 hours. ECG: No results for input(s): DIAGLINE, QTCCALC in the last 720 hours. VASCULAR: No results for input(s): VBTEXTRPT in the last 720 hours. IMAGING: Results for orders placed or performed during the hospital encounter of 07/21/21 CT Head wo Contrast (Generic) (Exam End: 07/21/2021 11:08 AM) Impression Increased size of hyperdense metastases along both cerebral convexities. Increased left frontoparietal vasogenic edema, sulcal effacement and mass effect on the left lateral ventricle. Similar vasogenic edema surrounding the right frontal convexity lesions. Thank you for letting us participate in the care of this patient. If you are a health care provider and have any questions regarding this report, please contact the number below. For patients who have questions please contact the health lead caregiver that requested your imaging first. Electronically signed by: Debo Davies MD, [facility] ([phone]), at 07/21/2021 11:33 AM MRI Brain wwo Contrast (Generic) (Exam End: 07/21/2021 3:51 PM) Impression 1. 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 2. Mild interval enlargement of 2 posterior right frontal metastatic lesions and a new subcentimeter metastatic lesion in the anteromedial left temporal lobe. Thank you for letting us participate in the care of this patient. If you are a health care provider and have any questions regarding this report, please contact the number below. For patients who have questions please contact the health lead caregiver that requested your imaging first. Rad Onc Neuro Interp Only (Exam End: 07/22/2021 3:34 PM) Impression Expected findings. Thank you for letting us participate in the care of this patient. If you are a health care provider and have any questions regarding this report, please contact the number below. For patients who have questions please contact the health lead caregiver that requested your imaging first. Inpatient Medications: Scheduled ??? calcium carbonate 500 mg Oral BID ??? atorvastatin 80 mg Oral QPM ??? levETIRAcetam 1,500 mg Oral BID ??? metoprolol tartrate 12.5 mg Oral BID ??? pantoprazole EC 40 mg Oral Daily ??? sodium chloride 1 g Oral TID ??? dexamethasone inj 6 mg Intravenous Q6H CORIN ??? sodium chloride 0.9 % (flush) 5 mL Intravenous BID ??? heparin (porcine) 5,000 Units Subcutaneous Q8H CORIN ??? divalproex EC 500 mg Oral BID Continuous infusions: PRN: carboxymethylcellulose, bisacodyL, acetaminophen, LORazepam, sodium chloride 0.9 % (flush), lidocaine, melatonin Assessment: Mr. 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 He was admitted to hospital medicine with an MRI significant for evidence of brain lesion recurrence and enlargement of metastatic lesions. Given the extensive nature of metastasis as well as rapid growth of previously debulked tumor,surgical intervention was deferred, IV steroids were started, and the patient was started on whole brain radiation per Radiation Oncology (first session 07/22, fourteen sessions total, anticipated end-date 08/10).? Plan:?? # Metastatic NSCLC # Brain mets - rapidly progressive # Right sided hemiplegia, acute - 2/2 rapidly progressive mets # Cerebral edema secondary to post-operative changes and secondary to metastatic disease # Worsening acute seizure activity 2/2 brain mets - MRI brain showed interval metastatic recurrence in 2 prior LT surgical beds with shifting edema, mild interval enlargement of 2 posterior RT frontal metastatic lesions and new sub-cm metastatic lesion in LT temporal lobe - Case discussed with neurosurgery who recommended Decadron 10mg IVx1 followed by 6mg Q6H IV - S/P Keppra load 1gm IV x1 - will now continue home Keppra at 1500mg BID - Ativan 0.5mg PRN seizures - Seizure precautions-following risk benefit discussion with the patient and lack of evidence of reccurent seizure, seizure precautions were discontinued. Patient agreeable to reimplementation if seizures should reoccur.?? - Fall risk- Fall precautions ordered?? - COMMUNICATION STUDIES PROFESSOR evaluation- cleared for regular diet?? - goal sbp 90-160 - depatkoe 500 mg BID, last trough level 37 on 07/29 - Q4H neuro checks: ?- ??if acute twitching, would discuss with neurology immediately givenconcern for seizure and possible need for vEEG or Depakote load ?- if acute worsening of neuro exam, may then be candidate for Mannitol. Very poor candidate for surgery given aggressive nature of malignancy and number of lesions. Additionally concern about post-op swelling delaying radiation - Neurology, neurosurgery, oncology, radiation oncology and palliative input greatly appreciated - Will continue with IV steroids for now, duration/dosing to be determined - Will start whole brain radiation therapy today for 14 planned sessions - anticipate completion [place] [facility] if pt otherwise medically ready for discharge and cleared for home; if requires rehab, anticipate would complete course here. - Given GOC as above, will engage PT/OT. - starting 07/30, memantine 5 mg daily 7 days, then 5 mg BID 7 days, then 10 mg morning/5 mg evening for 7 days, then 10 mg BID thereafter for minimum six months # Hyponatremia, presumed due to SIADH - had previously been on fluid restriction, follow-up urine studies, anticipate he will need resumption of 1.0-1.5 L fluid restriction ?? # Leukocytosis, chronic - stable - in setting of chronic steroid use - no sign of active infection ?? # CAD with h/o 4v CABG # HTN # HLD - Cont??Beta Cassie, and statin IV access/ MIVF PIV Tubes/ Drains N/A DVT prophylaxis Heparin PT/OT/COMMUNICATION STUDIES PROFESSOR ordered Wound care N/A Anticipated Disposition TBD Team Pager (MD Coverage 02/10): [phone] Family Update Daughter Kaylan in person 07/30 PCP Myriam Riggins MD SHARED VISIT n/a I have examined the patient myself and personally reviewed all studies. In addition, I certify that I am a D-H credentialed attending provider with admitting privileges and that the patient meets or has met medical necessity to require an inpatient IPI level of care meeting a minimum of two midnights or is on the [facility] inpatient only procedure list (status C) due to: HANDSTITCHING MACHINE COLLAR FELLER metastases causing seizure, hyponatremia Ji Blanco MD 07/30/2021 Jennifer Terrell I, OT - 07/30/2021 11:15 AM EDT Occupational Therapy Treatment Note Treatment Number OT: 3 Patient Dx: Ilir Laird is a 75 y.o. male with pmhx of Metastatic NSCLC to the brain s/p debulking,CAD, HLD who presents to the ED for right sided weakness. ? Neurology is consulted for ongoing seizures. He has significant right sided weakness with decreased sensation over RLE. MRI showed metastatic reoccurence on the left with interval enlargement of 2 posterior right frontal metastatic lesions and new subcentimeter lesion in anteromedial left temproal love. Patient's history consistent with focal status aborted with ativan. Patient now on keppra 1.5g BIDand depakote 500mg BID. LFT's obtained were wnl and depakote level to be drawn prior to AM dose tomorrow. Patient is receiving decadron 6mg q6hr. If there is ongoing concern for seizures can obtain cVEEG monitoring. ? Past Medical History Past Medical History: Diagnosis Date ??? CAD (coronary artery disease) ? s/p CABG 2018 ??? High cholesterol ? Hypertension ? Tobacco use ? Past Surgical History Past Surgical History: Procedure Laterality Date ??? PRO EXCIS SUPRATENT BRAIN TUMOR Left 06/30/2021 ?? @CRANI, FOR TUMOR, SUPRATENTORIAL, NOT MENINGIOMA (WRVU 30.83) performed [facility] ??? PRO MICROSURG TECHNIQUES, REQ OPER MICROSCOPE N/A 06/30/2021 ?? MICROSCOPE USE (WRVU 3.46) performed by Darian Justice MD at [facility] MAIN OR ??? PRO STEREOTACTIC CPTR ASSTD PX CRANIAL, INTRADURAL N/A 06/30/2021 ?? STEREOTACTIC COMPUTER-ASSTD NAVIGATIONAL CRANIAL INTRADURAL (WRVU 3.75) performed by Darian Justice MD at [facility] MAIN OR ? Social History: Patient typically lives??alone in a house in [place], [place] with his dog Home Setup:??Pt reports that he has a ramp to enter with bilateral rails. Pt has one level home witha basement. Pt reports that he sleeps on the sofa at times. Pt has a tub/shower combo with GB.?? DME:??Walker, wheelchair?? Baseline ADL/Mobility:??Prior to admission; Pt was at [facility] getting rehab s/p last hospital admission and then discharged home. Pt was home for one day prior to needing to return to hospital due toincreased weakness in R hemibody. 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 Pt daughter Antonina, lives farther away, but is supportive. ?? Precautions/Special Considerations:??Limited code, verbal order from Dr. Guerin; assume AAT, at risk for falls, SBP 90-160, R sided weakness, R shoulder precautions Interval History: Per MD note 07/25/21 -No acute overnight events -Patient seen and evaluated in person at bedside S: My R arm has been moving well... my leg is different. My daughter is supposed to bring me a lobster roll from the 99. O: Patient seen for skilled OT treatment and demonstrated the following: ?? Self-care/Functional Mobility: ?? Pt presented in bed and agreeable to therapy ?? Supine to sit: HOB elevated; min A RLE, pt able to utilize RUE and LUE on bed rail to transition from sidelying to sitting ?? Pt able to sit unsupported and participate in UB dressing w min A and oral hygiene w min A; pt able to utilize RUE to stabilize toothbrush while putting toothpaste on w LUE and brush teeth; able to open cap of mouthwash w RUE and min A ?? Pt able to sit unsupported to don AFO and sneakers; required max A; trialed loafers w AFO due to hospital socks; unable to fit in loafers due to increased swelling in LEs ?? Pt able to utilize figure 4 w RUE to don AFO and sneaker; pt required mod A to assist w RLE; pt unable to fully don R sneaker and AFO; therapist to assist ?? Sit to stand: increased height of bed; min Ax2 FWW; intermittent assistance w RLE due to R knee buckle; and cues for R wrist to maintain neutral on walker ?? Pt stood x3 w min A x2; stood ~3 minutes before requiring to sit due to fatigue ?? Stand pivot transfer from EOB to recliner chair w mod Ax2 FWW; required assistance to advance RLEand cues for weightshifting to advance RLE; unable to transfer to L side ?? Stand to sit: min Ax2 FWW ?? Pt able to take a few bites of food w RUE; forward flexed posture; stabilized RUE on pillows to assist w elbow ROM ?? Pt left in recliner chair w all needs met and call lozano within reach; daughter at bedside ?? Cognition: ?? Behavior / Mood: alert, cooperative and highly motivated ?? Alert and oriented to: person, place, time and situation ?? Follows commands: 1 step, 100% of the time and requires increased time ?? Attention: WFL ?? Safety awareness: fully aware of deficits ?? Endurance: good ?? Strength/ROM: ?? RUE: 4/5 elbow flexion/extension; 4/5 wrist flexion/extension; 4/5 sales contracts analyst strength; 5/5 LUE Pain: no pain reported Education: Pt/family/caregiver education ongoing regarding: Role of occupational therapy/rehabilitation, Transfers, Assistive device/technique, ADL, Exercise, Positioning, Safety, Precautions/Protocol,Functional Mobility, Home Program, Balance, Recommendations and Discharge planning. Staff Communication: Patient status, treatment, and mobility recommendations discussed with nursing/other staff. ASSESSMENT: Pt seen for continuation of OT plan of care. Pt continues to progress towards OT goals. Pt very eager and motivated to participate in therapy; pt able to tolerate lengthy OT session. Pt able to utilize RUE during functional tasks; however continues to demonstrate w decreased strength, decre ased motor control and decreased ROM. Pt able to sit EOB w supervision to participate in ADL tasks; required max A for footwear and mod Ax2 FWW for stand pivot transfer to recliner chair. Continue to recommend a rehab stay to maximize independence in ADLs/IADLs and safety. Pt will continue to benefit from OT interventions while remaining house. Equipment needs at discharge: to be determined Anticipated Discharge Disposition: acute rehabilitation facility Daily schedule / Staff Recommendations: ?? Transfer to recliner chair and/or BSC as appropriate with??2A with FWW, stand pivot transfer ?? Encourage participation in ADL's by providing set up A on tray table and physical assist only as needed Occupational Therapy Goals: ongoing To be achieved by??08/08/21. 1. Pt will be??min A??for LB dressing routines with AE as needed at seated/standing levels 2. Pt will be??min Ax1??for toileting routine at ambulatory level with LRAD 3. Pt will be??min A for UB dressing routines?? 4. Pt will be independent for HEP for BUEs 5.??Pt will be able to stand for 8 minutes to perform ADL task Therapy Frequency (OT): 2-4 times/wk Total Minutes, Occupational Therapy: 58 ([facility] [id number]) Pager: [phone] Jennifer Terrell OT 07/30/2021 Occupational Therapy Rehabilitation Department Stephanie Bird, ROLLER REPAIRER - 07/29/2021 8:00 AM EDT [facility] Medicine Daily Progress Note Admit Date: 07/21/2021 Hospital Day 8 days Active Hospital Problems Diagnosis ??? Right sided weakness ??? Right hemiplegia Resolved Hospital Problems No resolved problems to display. 24 Hour Events: -No acute overnight events -Patient seen and evaluated in person at bedside -Expressing increased interest in transitioning to a rehab facility post discharge for added strength -Remains optimistic and motivated regarding rehabbing in place -Anticipate conclusion of whole brain radiation 5.27 ROS: ??Denies fever, chills, malaise, PINEDA, lightheadedness, chest pain, palpitations, SOB, dyspnea, N/V/D,constipation, dysuria, flank pain, edema?? Physical Exam Vitals Range last 24 hrs Temperature Temp: [36.4 ??C (97.6 ??F)-36.8 ??C (98.2 ??F)] Heart Rate Heart Rate: -- Blood Pressure BP: (116-139)/(64-83) Respiratory Rate Resp: [18-20] SpO2 SpO2: [91 %-95 %] Intake/Output Summary (Last 24 hours) at 07/29/2021 0801 Last data filed at 07/29/2021 0109 Gross per 24 hour Intake -- Output 800 ml Net -800 ml No data found. BMI: Weight: 79.4 kg (175 lb) (07/21/21 1039) BMI (Calculated): 26.61 BMI Classification: Over Weight Estimated Creatinine Clearance: 67.4 mL/min (based on SCr of 0.93 mg/dL). CONSTITUTIONAL:??Patient is an elderly appearing gentleman,??sitting comfortably in bed upon entering room.??No acute distress. Breathing comfortably on room air??and able to communicate in full sentences.?? HEENT:??Normocephalic, atraumatic. Bilateral sclera anicteric and without injection. No conjunctivalexudate or injection.??Right eyelid with mild inversion but without evidence of trauma to surrounding eye tissues. Mucous membranes moist. NECK: Trachea midline, no evidence of thyromegaly. No elevation in JVP appreciated.?? CHEST:??S1S2, RRR, no murmurs, rubs, clicks.?? LUNGS:??Respiratory effort and expansion good, equal, and symmetric bilaterally. Bilateral lung sherwood clear to auscultation with no adventitious sounds noted.?? ABDOMEN:??Round, soft, non-tender to palpation. Bowel sounds normoactive throughout. No masses or hepatosplenomegaly noted.?? EXTREMITIES:??Distal extremities warm and well perfused x4. Radial pulses +2, equal, and symmetric. Pedal pulses +1, equal, and symmetric.?? SKIN:??Warm and dry to touch.?? NEURO:??Right pupil slightly larger than left. Reactive equally to light. EOMI. Alert and oriented x4. Right sided hemiplegia most notable in right upper extremity. Supervisor Particleboard strength now 5/5 on R and 5/5 of left. Right dorsiflexion and extension 3-4/5. Left dorsiflexion and extension 5/5. Able to raise both arms parallel though unable to control return to midline of R arm. No additional focal deficit noted.?? PSYCH:??Affect pleasant. Patient cooperative. Speech pattern and speed appropriate.?? Studies reviewed in eDH. Remarkable for the following: LABS: Recent Labs 07/29/21 0724 07/27/21 0504 07/26/21427 WBC 16.7* 12.9* 13.2* HGB 14.1 13.2* 13.8 HCT 40.6 38.4* 40.2* PLATELET 152 162 178 Recent Labs 07/27/21 0502 07/26/21 0428 07/25/21 1144 NA 134* 133* 132* K 4.7 4.5 4.5 CL 100 98 98 CO2 BUN 29* 26* 28* CREATININE 0.93 0.79* 0.87 Recent Labs 07/26/21 0428 07/25/21 1144 07/23/21 0457 AST 14 13 13 ALT 19 20 22 ALKPHOS 93 84 83 BILITOT 0.4 0.4 0.4 BILIDIR -- -- 0.1 Recent Labs 07/27/21 0502 07/26/21 0428 07/25/21 1144 CALCIUM 7.8* 8.0* 8.3* PHOS -- 3.5 -- No results for input(s): PT, INR, PTT in the last 168 hours. No results for input(s): CK, TROPONINT in the last 168 hours. FSBG Trend No results for input(s): POCGLU in the last 72 hours. MICRO: No results for input(s): URINECULTURE in the last 720 hours. No results for input(s): GRAMSTAIN, BFCX, LOWERRESPCX, TISSUECX in the last 720 hours. No results for input(s): BLOODCX in the last 720 hours. ECG: No results for input(s): DIAGLINE, QTCCALC in the last 720 hours. VASCULAR: No results for input(s): VBTEXTRPT in the last 720 hours. IMAGING: Results for orders placed or performed during the hospital encounter of 07/21/21 CT Head wo Contrast (Generic) (Exam End: 07/21/2021 11:08 AM) Impression Increased size of hyperdense metastases along both cerebral convexities. Increased left frontoparietal vasogenic edema, sulcal effacement and mass effect on the left lateral ventricle. Similar vasogenic edema surrounding the right frontal convexity lesions. Thank you for letting us participate in the care of this patient. If you are a health care provider and have any questions regarding this report, please contact the number below. For patients who have questions please contact the health lead caregiver that requested your imaging first. Electronically signed by: Debo Davies MD, [facility] ([phone]), at 07/21/2021 11:33 AM MRI Brain wwo Contrast (Generic) (Exam End: 07/21/2021 3:51 PM) Impression 1. 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 2. Mild interval enlargement of 2 posterior right frontal metastatic lesions and a new subcentimeter metastatic lesion in the anteromedial left temporal lobe. Thank you for letting us participate in the care of this patient. If you are a health care provider and have any questions regarding this report, please contact the number below. For patients who have questions please contact the health lead caregiver that requested your imaging first. Electronically signed by: Hemant Vanegas MD, [facility] ([phone]), at 07/21/2021 4:[address] Rad Onc Neuro Interp Only (Exam End: 07/22/2021 3:34 PM) Impression Expected findings. Thank you for letting us participate in the care of this patient. If you are a health care provider and have any questions regarding this report, please contact the number below. For patients who have questions please contact the health lead caregiver that requested your imaging first. Electronically signed by: Hemant Vanegas MD, [facility] ([phone]), at 07/22/2021 4:12 PM Inpatient Medications: Scheduled ??? calcium carbonate 500 mg Oral BID ??? atorvastatin 80 mg Oral QPM ??? levETIRAcetam 1,500 mg Oral BID ??? metoprolol tartrate 12.5 mg Oral BID ??? pantoprazole EC 40 mg Oral Daily ??? sodium chloride 1 g Oral TID ??? dexamethasone inj 6 mg Intravenous Q6H CORIN ??? sodium chloride 0.9 % (flush) 5 mL Intravenous BID ??? heparin (porcine) 5,000 Units Subcutaneous Q8H CORIN ??? divalproex EC 500 mg Oral BID Continuous infusions: PRN: carboxymethylcellulose, bisacodyL, acetaminophen, LORazepam, sodium chloride 0.9 % (flush), lidocaine, melatonin Assessment: Mr. 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 He was admitted to hospital medicine with an MRI significant for evidence of brain lesion recurrence and enlargement of metastatic lesions. Given the extensive nature of metastasis as well as rapid growth of previously debulked tumor,surgical intervention was deferred, IV steroids were started, and the patient was started on whole brain radiation per Radiation Oncology (first session 07/22 through 08/05 for fourteen sessions).?? Interval History: Remains increasingly open to rehab post discharge in the setting of increased strength building. Continues to work with PT/OT and performing in bed/sit to stand exercises to continue building strength.Understands with goals for rehab, he will complete radiation while remaining inpatient. ?? Plan:?? # Metastatic NSCLC # Brain mets - rapidly progressive # Right sided hemiplegia, acute - 2/2 rapidly progressive mets # Swelling of brain, post-operative changes and 2/2 mets # Worsening acute seizure activity 2/2 brain mets - MRI brain showed interval metastatic recurrence in 2 prior LT surgical beds with shifting edema, mild interval enlargement of 2 posterior RT frontal metastatic lesions and new sub-cm metastatic lesion in LT temporal lobe - Case discussed with neurosurgery who recommended Decadron 10mg IVx1 followed by 6mg Q6H IV - S/P Keppra load 1gm IV x1 - will now continue home Keppra at 1500mg BID - Ativan 0.5mg PRN seizures - Seizure precautions-following risk benefit discussion with the patient and lack of evidence of reccurent seizure, seizure precautions were discontinued. Patient agreeable to reimplementation if seizures should reoccur.?? - Fall risk- Fall precautions ordered?? - COMMUNICATION STUDIES PROFESSOR evaluation- cleared for regular diet?? - Cont home sodium tablets- previously worked up hyponatremia as SIADH - goal sbp 90-160 - Q4H neuro checks: ?- ??if acute twitching, would discuss with neurology immediately givenconcern for seizure and possible need for vEEG or Depakote load ?- if acute worsening of neuro exam, may then be candidate for Mannitol. Very poor candidate for surgery given aggressive nature of malignancy and number of lesions. Additionally concern about post-op swelling delaying radiation - Neurology, neurosurgery, oncology, radiation oncology and palliative input greatly appreciated - Will continue with IV steroids for now - Will start whole brain radiation therapy today for 14 planned sessions - anticipate completion near [facility] if pt otherwise medically ready for discharge and cleared for home; if requires rehab, anticipate would complete course here. - Given GOC as above, will engage PT/OT. ?? # Leukocytosis, chronic - stable - in setting of chronic steroid use - no sign of active infection ?? # CAD with h/o 4v CABG # HTN # HLD - Cont??Beta Cassie, and statin IV access/ MIVF PIV Tubes/ Drains N/A DVT prophylaxis Heparin PT/OT/COMMUNICATION STUDIES PROFESSOR ordered Wound care N/A Anticipated Disposition TBD Team Pager (MD Coverage 02/10): [phone] Family Update Contacted daughter, Sandro Cartagena via telephone at approximately [phone]. PCP Myriam Riggins MD SHARED VISIT This patient was seen in conjunction with Presley Guerin MD as part of a shared visit. Stephanie Bird, ROLLER REPAIRER 07/29/2021 Elaine Fernández PT - 07/28/2021 5:02 PM EDT Physical Therapy Note Treatment Number PT: 3 Patient profile: Ilir Laird is a 75 y.o. 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 Presley Guerin MD with new (R) sided twitching and (R) hemiplegia. MRI brain with evidence of recurrence of brain mets and new lesions as well per hospital medicine team report. Interval History: NAEO. Per MD demonstrating strength improvements against resistance in RLE. Remains motivated to work with therapy services. Social History: Ilir typically??lives??alone in a house in [place], [place] with his dog. Pt reports that he has a ramp to enter with bilateral rails. Pt has one level home with a basement. Pt reports thathe sleeps on the sofa at times. Pt has a tub/shower combo with GB.?? DME:??Walker, wheelchair?? Baseline ADL/Mobility:??Prior to admission;??Pt was at [facility] getting rehab s/p last hospital admission and then discharged home. Pt was home for one day prior to needing to return to hospital due to increased weakness in R hemibody. 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 Pt daughter Antonina, lives farther away, but is supportive. ?? Precautions/Special Considerations: Code Status: Limitations , High risk for skin breakdown, At riskto fall, Seizure precautions, Maintain HOB elevation per Dr. Guerin, Maintain SBP 90-160, (R) sided weakness Lines: Marcellus, Telemetry, PIV Activity Orders: assume AAT per Diet: Regular adult diet Mobility and Positioning Recommendations: ?? Pt to utilize FWW and assist x 2-3 for stand-pivot transfers with nursing. Recommend wearing R AFO and shoe, one person must assist with lifting/moving RLE ?? ALTERNATIVELY, Patient may transfer between bed and recliner chair by dropping arm & laterally scooting with 2 assist ?? Please encourage up to chair for meal times as able. Subjective: I really want to get home Can we do this again tomorrow? Objective: Patient seen for physical therapy and demonstrated the following: Pain: no c/o pain during session Vital Signs: VSS throughout Mental Status: alert, oriented to person, place, and time Vision: glasses Skin: intact that was observed Musculoskeletal: ROM: LEs stiff, but grossly WFL Strength: LLE WFL, RLE 3-/5 at the hip and knee Sensation: light touch minimally decreased to R foot Bed Mobility: HOB elevated, with bed rails Supine to Sit: Marimar x2 Sit to Supine: not observed, session ended in bedside recliner chair Transfers: Sit to Stand: many repetitions with Marimar x1, CGA x1, safety belt, R AFO Stand to Sit: Marimar x1-2 with safety belt Bed to Chair: modA x2 with FWW, safety belt. Required manual assist to lift RLE. Balance: Sitting: good static sitting balance, able to hold self up supervised. Fair+ dynamic sitting balance, no [id number] observed but consistently utilized LLE on bed to provide additional support when donning socks/shoes with PT. Standing Static: fair- with FWW Standing Dynamic / Gait: poor Therex: 2 set x 8 repetitions of LAQ ANDRESSA (through 3/4 range on RLE) 2 set x 10 repetitions of seated marched ANDRESSA (through 3/4 range on RLE) Encouraged to perform these exercises on his own when he is sitting in the chair Pt left in bedside recliner chair, with all needs met and with call lozano in reach following visit. Assessment: Ilir Laird was seen today for physical therapy treatment. Patient remains a pleasant and motivated participant and tolerated the session well. Notably he required less assist with [id number], and tolerated a larger amount of activity overall. That being said, he remains limited in regards to strength, balance, and activity tolerance. Keeping this in mind he will benefit from ongoing IP PT in house, as well as d/c to rehab facility to maximize function. Discharge Recommendations: Based on the current findings, Anticipated Discharge Disposition (PT): acute rehabilitation facilitywhen medically ready for hospital discharge. Patient is extremely motivated and can likely tolerate a large amount of therapy; he would be an excellent candidate for acute rehab Consult Recommendations: No other consults recommended at this time. Equipment needs: TBD Goals: To be achieved by 08/01/21: all ongoing as of 07/28/21 1. Pt. to demonstrate knowledge of safety limitations and precautions and will appropriately requestassistance for functional activities and to mobilize. 2. Pt. to demonstrate understanding of appropriate seated LE exercises. MET 3. Pt to participate in standardized balance assessment. 4. Pt. to perform bed mobility independently from flat bed. 5. Pt. to perform transfers with modified independence using LRAD. Improving 6. Pt. to ambulate >/=150 feet with modified independence using LRAD. 7. Family or caregiver to demonstrate understanding of therapeutic interventions to support the careof the patient. 8. Pt will tolerate progression towards upright with stable vital signs. MET Plan: Therapy Frequency (PT): 2-4 times/wk for therapy interventions as outlined in initial evaluation. Patient agrees with plan as stated. Time IN / OUT: 7922-2857 Total Minutes, Physical Therapy: 31 (therapeutic activity, therapeutic exercise) Elaine Fernández, PT Pager: [phone] Physical Therapy Inpatient Rehabilitation Department Stacey Zamora - 07/28/2021 4:10 PM EDT Nutrition Services Note - Low Nutrition Acuity Ilir Laird is a 75 y.o. male Reason for intervention: hospital length of stay Nutrition Plan: Continue current diet. Encourage good PO intake. Tums, sodium chloride tablets noted. Monitor weight. Support and encouragement provided. Patient screened for hospital length of stay. Patient seen in room for a nutrition visit. Per patient, his appetite is great and he eats most of the food he receives. PO intake per chart documentation usually recorded at 75%-100%. Patient also had snacks available at bedside which he reports eating when he gets hungry, or he requests an ice cream from nursing. Patient declined offer of scheduled snacks at this time. Patient reports overall contentment in the food that he receives at [facility]. Patient had no other nutrition questions at this time. Nutrition services to continue to monitor and follow up. Active Orders Diet Regular diet Frequency: Effective Now Number of Occurrences: Until Specified Admit Weight: 79.38 kg Estimated body mass index is 26.61 kg/m?? as calculated from the following: Height as of this encounter: 172.7 cm (5' 8). Weight as of this encounter: 79.4 kg (175 lb). Wt Readings from Last 5 Encounters: 07/21/21 79.4 kg (175 lb) 07/04/21 75.8 kg (167 lb 1.7 oz) 06/30/21 75.7 kg (166 lb 14.2 oz) Weight loss: none Appetite: Excellent (75%-100%) Food allergies:no known food allergies Chewing/Swallowing difficulty: none Nausea/Vomiting: no nausea and no vomiting Last Bowel Movement: 07/27/21 Patient education / questions: all nutrition related questions answered at this time Nutrition services to follow weekly through hospital course unless consulted in the interim. Stacey Zamora, LEE [phone] Nuha Powell - 07/28/2021 3:10 PM EDT Olivia Encounter Note Patient Name: Ilir Laird : [id number] MR#: [id number] Admit Date: 07/21/2021 10:24 AM Hospital Day 7 days Narrative: Initial encounter with Ilir. Referral from PC team clinician. The city council member introduced self/role and made spiritual care services accessible, as needed. Ilir appreciated the introduction and was receptive of merchandise team manager services. He expressed a desire arash seen at a later time, as he was with two visitors. The city council member respected his wishes. Intervention and Outcome: spiritual care resources were made known/available. Follow-up: Attempt a second visit. Monitor. Time in Direct Care: 4m Nuha Powell 07/28/2021 Stephanie Bird APRN - 07/28/2021 12:21 PM EDT [facility] Medicine Daily Progress Note Admit Date: 07/21/2021 Hospital Day 7 days Active Hospital Problems Diagnosis ??? Right sided weakness ??? Right hemiplegia Resolved Hospital Problems No resolved problems to display. 24 Hour Events: -No acute overnight events -Patient seen and evaluated in person at bedside -Family/friends in for visit this AM and in afternoon -In good spirits, continues to be motivated to rehab in place -Improvement in strength against resistance in RLE on exam toda -States he enjoyed working with PT today but still required assistance with sit to stands intermittently ROS: Denies fever, chills, malaise, PINEDA, lightheadedness, chest pain, palpitations, SOB, dyspnea, N/V/D, constipation, dysuria, flank pain, edema?? Physical Exam Vitals Range last 24 hrs Temperature Temp: [36.4 ??C (97.6 ??F)-36.7 ??C (98.1 ??F)] Heart Rate Heart Rate: [65] Blood Pressure BP: (119-139)/(60-74) Respiratory Rate Resp: [16-20] SpO2 SpO2: [91 %-95 %] Intake/Output Summary (Last 24 hours) at 07/28/2021 1221 Last data filed at 07/28/2021 0800 Gross per 24 hour Intake 220 ml Output 1300 ml Net -1080 ml No data found. BMI: Weight: 79.4 kg (175 lb) (07/21/21 1039) BMI (Calculated): 26.61 BMI Classification: Over Weight Estimated Creatinine Clearance: 67.4 mL/min (based on SCr of 0.93 mg/dL). CONSTITUTIONAL:??Patient is an elderly appearing gentleman,??sitting comfortably in bedside chair upon entering room.??No acute distress. Breathing comfortably on room air??and able to communicate in full sentences.?? HEENT:??Normocephalic, atraumatic. Bilateral sclera anicteric and without injection. No conjunctivalexudate or injection.??Right eyelid with mild inversion but without evidence of trauma to surrounding eye tissues. Mucous membranes moist. NECK: Trachea midline, no evidence of thyromegaly. No elevation in JVP appreciated.?? CHEST:??S1S2, RRR, no murmurs, rubs, clicks.?? LUNGS:??Respiratory effort and expansion good, equal, and symmetric bilaterally. Bilateral lung sherwood clear to auscultation with no adventitious sounds noted.?? ABDOMEN:??Round, soft, non-tender to palpation. Bowel sounds normoactive throughout. No masses or hepatosplenomegaly noted.?? EXTREMITIES:??Distal extremities warm and well perfused x4. Radial pulses +2, equal, and symmetric. Pedal pulses +1, equal, and symmetric.?? SKIN:??Warm and dry to touch.?? NEURO:??Right pupil slightly larger than left. Reactive equally to light. EOMI. Alert and oriented x4. Right sided hemiplegia most notable in right upper extremity. Supervisor Particleboard strength now 5/5 on R and 5/5 of left. Right dorsiflexion and extension 3-4/5. Left dorsiflexion and extension 5/5. Able to raise both arms parallel though unable to control return to midline of R arm. No additional focal deficit noted.?? PSYCH:??Affect pleasant. Patient cooperative. Speech pattern and speed appropriate.?? Studies reviewed in eDH. Remarkable for the following: LABS: Recent Labs 07/27/21 0504 07/26/21 0428 07/25/21 1144 WBC 12.9* 13.2* 13.8* HGB 13.2* 13.8 14.0 HCT 38.4* 40.2* 40.5 PLATELET 162 178 185 Recent Labs 07/27/21 0502 07/26/21 0428 07/25/21 1144 NA 134* 133* 132* K 4.7 4.5 4.5 CL 100 98 98 CO2 22 BUN 29* 26* 28* CREATININE 0.93 0.79* 0.87 Recent Labs 07/26/21 0428 07/25/21 1144 07/23/21 0457 07/22/21 0459 AST 14 13 13 17 ALT 19 20 22 28 ALKPHOS 93 84 83 100 BILITOT 0.4 0.4 0.4 0.3 BILIDIR -- -- 0.1 0.1 Recent Labs 07/27/21 0502 07/26/21 0428 07/25/21 1144 CALCIUM 7.8* 8.0* 8.3* PHOS -- 3.5 -- No results for input(s): PT, INR, PTT in the last 168 hours. No results for input(s): CK, TROPONINT in the last 168 hours. FSBG Trend No results for input(s): POCGLU in the last 72 hours. MICRO: No results for input(s): URINECULTURE in the last 720 hours. No results for input(s): GRAMSTAIN, BFCX, LOWERRESPCX, TISSUECX in the last 720 hours. No results for input(s): BLOODCX in the last 720 hours. ECG: No results for input(s): DIAGLINE, QTCCALC in the last 720 hours. VASCULAR: No results for input(s): VBTEXTRPT in the last 720 hours. IMAGING: Results for orders placed or performed during the hospital encounter of 07/21/21 CT Head wo Contrast (Generic) (Exam End: 07/21/2021 11:08 AM) Impression Increased size of hyperdense metastases along both cerebral convexities. Increased left frontoparietal vasogenic edema, sulcal effacement and mass effect on the left lateral ventricle. Similar vasogenic edema surrounding the right frontal convexity lesions. Thank you for letting us participate in the care of this patient. If you are a health care provider and have any questions regarding this report, please contact the number below. For patients who have questions please contact the health lead caregiver that requested your imaging first. Electronically signed by: Debo Davies MD, [facility] ([phone]), at 07/21/2021 11:33 AM MRI Brain wwo Contrast (Generic) (Exam End: 07/21/2021 3:51 PM) Impression 1. 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 2. Mild interval enlargement of 2 posterior right frontal metastatic lesions and a new subcentimeter metastatic lesion in the anteromedial left temporal lobe. Thank you for letting us participate in the care of this patient. If you are a health care provider and have any questions regarding this report, please contact the number below. For patients who have questions please contact the health lead caregiver that requested your imaging first. Electronically signed by: Hemant Vanegas MD, [facility] ([phone]), at 07/21/2021 4:[address] Rad Onc Neuro Interp Only (Exam End: 07/22/2021 3:34 PM) Impression Expected findings. Thank you for letting us participate in the care of this patient. If you are a health care provider and have any questions regarding this report, please contact the number below. For patients who have questions please contact the health lead caregiver that requested your imaging first. Electronically signed by: Hemant Vanegas MD, [facility] ([phone]), at 07/22/2021 4:12 PM Inpatient Medications: Scheduled ??? calcium carbonate 500 mg Oral BID ??? atorvastatin 80 mg Oral QPM ??? levETIRAcetam 1,500 mg Oral BID ??? metoprolol tartrate 12.5 mg Oral BID ??? pantoprazole EC 40 mg Oral Daily ??? sodium chloride 1 g Oral TID ??? dexamethasone inj 6 mg Intravenous Q6H CORIN ??? sodium chloride 0.9 % (flush) 5 mL Intravenous BID ??? heparin (porcine) 5,000 Units Subcutaneous Q8H CORIN ??? divalproex EC 500 mg Oral BID Continuous infusions: PRN: bisacodyL, acetaminophen, LORazepam, sodium chloride 0.9 % (flush), lidocaine, melatonin Assessment: Mr. 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 He was admitted to hospital medicine with an MRI significant for evidence of brain lesion recurrence and enlargement of metastatic lesions. Given the extensive nature of metastasis as well as rapid growth of previously debulked tumor,surgical intervention was deferred, IV steroids were started, and the patient was started on whole brain radiation per Radiation Oncology (first session 07/22 for 14 sessions).?? Interval History: Mr. Laird is making good strides in strength with rehabilitation while inpatient. Stating at this time he would prefer to consider discharge to a rehab facility for additional work on strength buildingprior to returning home. In discussion he understands this would necessitate completion of radiationprior to discharge. Will continue to explore options and patient goals for ongoing care. Plan:?? # Metastatic NSCLC # Brain mets - rapidly progressive # Right sided hemiplegia, acute - 2/2 rapidly progressive mets # Swelling of brain, post-operative changes and 2/2 mets # Worsening acute seizure activity 2/2 brain mets - MRI brain showed interval metastatic recurrence in 2 prior LT surgical beds with shifting edema, mild interval enlargement of 2 posterior RT frontal metastatic lesions and new sub-cm metastatic lesion in LT temporal lobe - Case discussed with neurosurgery who recommended Decadron 10mg IVx1 followed by 6mg Q6H IV - S/P Keppra load 1gm IV x1 - will now continue home Keppra at 1500mg BID - Ativan 0.5mg PRN seizures - Seizure precautions-following risk benefit discussion with the patient and lack of evidence of reccurent seizure, seizure precautions were discontinued. Patient agreeable to reimplementation if seizures should reoccur.?? - Fall risk- Fall precautions ordered?? - COMMUNICATION STUDIES PROFESSOR evaluation- cleared for regular diet?? - Cont home sodium tablets - goal sbp 90-160 - Q4H neuro checks: ?- ??if acute twitching, would discuss with neurology immediately givenconcern for seizure and possible need for vEEG or Depakote load ?- if acute worsening of neuro exam, may then be candidate for Mannitol. Very poor candidate for surgery given aggressive nature of malignancy and number of lesions. Additionally concern about post-op swelling delaying radiation - Neurology, neurosurgery, oncology, radiation oncology and palliative input greatly appreciated - Will continue with IV steroids for now - Will start whole brain radiation therapy today for 14 planned sessions - anticipate completion near [facility] if pt otherwise medically ready for discharge and cleared for home; if requires rehab, anticipate would complete course here. - Given GOC as above, will engage PT/OT. ?? # Leukocytosis, chronic - stable - in setting of chronic steroid use - no sign of active infection ?? # CAD with h/o 4v CABG # HTN # HLD - Cont??Beta Cassie, and statin IV access/ MIVF PIV Tubes/ Drains N/A DVT prophylaxis Heparin PT/OT/COMMUNICATION STUDIES PROFESSOR ordered Wound care N/A Anticipated Disposition TBD Team Pager (MD Coverage 02/10): [phone] Code Status DNR/DNI PCP Myriam Riggins MD SHARED VISIT This patient was seen in conjunction with Dr. Presley Guerin as part of a shared visit. Stephanie Bird APRN 07/28/2021 Stephanie Bird APRN - 07/27/2021 1:19 PM EDT [facility] Medicine Daily Progress Note Admit Date: 07/21/2021 Hospital Day 6 days Active Hospital Problems Diagnosis ??? Right sided weakness ??? Right hemiplegia Resolved Hospital Problems No resolved problems to display. 24 Hour Events: -No acute overnight events. -Patient seen and evaluated in person at bedside -Daughter to bedside for visit yesterday afternoon -Patient able to participate in pet therapy with volunteer services -RLE strength improving-patient remains highly motivated to rehab in place -Continues to be in good spirits ROS: Denies fever, chills, malaise, PINEDA, lightheadedness, chest pain, palpitations, SOB, dyspnea, N/V/D, constipation, dysuria, flank pain, edema?? Physical Exam Vitals Range last 24 hrs Temperature Temp: [36.4 ??C (97.6 ??F)-36.9 ??C (98.4 ??F)] Heart Rate Heart Rate: [62] Blood Pressure BP: (97-146)/(60-75) Respiratory Rate Resp: [16-19] SpO2 SpO2: [91 %-94 %] Intake/Output Summary (Last 24 hours) at 07/27/2021 1319 Last data filed at 07/27/2021 1141 Gross per 24 hour Intake 630 ml Output 1200 ml Net -570 ml Patient Vitals for the past 168 hrs: Weight 07/21/21 1039 79.4 kg (175 lb) BMI: Weight: 79.4 kg (175 lb) (07/21/21 1039) BMI (Calculated): 26.61 BMI Classification: Over Weight Estimated Creatinine Clearance: 67.4 mL/min (based on SCr of 0.93 mg/dL). CONSTITUTIONAL:??Patient is an elderly appearing gentleman, reclining comfortably in bed upon entering room. No acute distress. Breathing comfortably on room air and able to communicate in full sentences.?? HEENT:??Normocephalic, atraumatic. Bilateral sclera anicteric and without injection. No conjunctivalexudate or injection. Mucous membranes moist. NECK: Trachea midline, no evidence of thyromegaly. No elevation in JVP appreciated.?? CHEST:??S1S2, RRR, no murmurs, rubs, clicks.?? LUNGS:??Respiratory effort and expansion good, equal, and symmetric bilaterally. Bilateral lung sherwood clear to auscultation with no adventitious sounds noted.?? ABDOMEN:??Round, soft, non-tender to palpation. Bowel sounds normoactive throughout. No masses or hepatosplenomegaly noted.?? EXTREMITIES:??Distal extremities warm and well perfused x4. Radial pulses +2, equal, and symmetric. Pedal pulses +1, equal, and symmetric.?? SKIN:??Warm and dry to touch.?? NEURO:??Right pupil slightly larger than left. Reactive equally to light. EOMI. Alert and oriented x4. Right sided hemiplegia most notable in right upper extremity. Supervisor Particleboard strength 4/5 on R and 5/5 of left. Right dorsiflexion and extension 3-4/5. Left dorsiflexion and extension 5/5. No additional focal d eficit noted.?? PSYCH:??Affect pleasant. Patient cooperative. Speech pattern and speed appropriate.?? Studies reviewed in eDH. Remarkable for the following: LABS: Recent Labs 07/27/21 0504 07/26/21 04207/25/21 1144 WBC 12.9* 13.2* 13.8* HGB 13.2* 13.8 14.0 HCT 38.4* 40.2* 40.5 PLATELET 162 178 185 Recent Labs 07/27/21 0502 07/26/21 0428 07/25/21 1144 NA 134* 133* 132* K 4.7 4.5 4.5 CL 100 98 98 CO2 BUN 29* 26* 28* CREATININE 0.93 0.79* 0.87 Recent Labs 07/26/21 0428 07/25/21 1144 07/23/21 0457 07/22/21 0459 AST 14 13 13 17 ALT 19 20 22 28 ALKPHOS 93 84 83 100 BILITOT 0.4 0.4 0.4 0.3 BILIDIR -- -- 0.1 0.1 Recent Labs 07/27/21 0502 07/26/2142707/25/21 1144 CALCIUM 7.8* 8.0* 8.3* PHOS -- 3.5 -- No results for input(s): PT, INR, PTT in the last 168 hours. No results for input(s): CK, TROPONINT in the last 168 hours. FSBG Trend No results for input(s): POCGLU in the last 72 hours. MICRO: No results for input(s): URINECULTURE in the last 720 hours. No results for input(s): GRAMSTAIN, BFCX, LOWERRESPCX, TISSUECX in the last 720 hours. No results for input(s): BLOODCX in the last 720 hours. ECG: No results for input(s): DIAGLINE, QTCCALC in the last 720 hours. VASCULAR: No results for input(s): VBTEXTRPT in the last 720 hours. IMAGING: Results for orders placed or performed during the hospital encounter of 07/21/21 CT Head wo Contrast (Generic) (Exam End: 07/21/2021 11:08 AM) Impression Increased size of hyperdense metastases along both cerebral convexities. Increased left frontoparietal vasogenic edema, sulcal effacement and mass effect on the left lateral ventricle. Similar vasogenic edema surrounding the right frontal convexity lesions. Thank you for letting us participate in the care of this patient. If you are a health care provider and have any questions regarding this report, please contact the number below. For patients who have questions please contact the health lead caregiver that requested your imaging first. Electronically signed by: Debo Davies MD, [facility] ([phone]), at 07/21/2021 11:33 AM MRI Brain wwo Contrast (Generic) (Exam End: 07/21/2021 3:51 PM) Impression 1. 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 2. Mild interval enlargement of 2 posterior right frontal metastatic lesions and a new subcentimeter metastatic lesion in the anteromedial left temporal lobe. Thank you for letting us participate in the care of this patient. If you are a health care provider and have any questions regarding this report, please contact the number below. For patients who have questions please contact the health lead caregiver that requested your imaging first. Electronically signed by: Hemant Vanegas MD, [facility] ([phone]), at 07/21/2021 4:[address] Rad Onc Neuro Interp Only (Exam End: 07/22/2021 3:34 PM) Impression Expected findings. Thank you for letting us participate in the care of this patient. If you are a health care provider and have any questions regarding this report, please contact the number below. For patients who have questions please contact the health lead caregiver that requested your imaging first. Electronically signed by: Hemant Vanegas MD, [facility] ([phone]), at 07/22/2021 4:12 PM Inpatient Medications: Scheduled ??? calcium carbonate 500 mg Oral BID ??? atorvastatin 80 mg Oral QPM ??? levETIRAcetam 1,500 mg Oral BID ??? metoprolol tartrate 12.5 mg Oral BID ??? pantoprazole EC 40 mg Oral Daily ??? sodium chloride 1 g Oral TID ??? dexamethasone inj 6 mg Intravenous Q6H CORIN ??? sodium chloride 0.9 % (flush) 5 mL Intravenous BID ??? heparin (porcine) 5,000 Units Subcutaneous Q8H CORIN ??? divalproex EC 500 mg Oral BID Continuous infusions: PRN: bisacodyL, acetaminophen, LORazepam, sodium chloride 0.9 % (flush), lidocaine, melatonin Assessment: Mr. 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 He was admitted to hospital medicine with an MRI significant for evidence of brain lesion recurrence and enlargement of metastatic lesions. Given the extensive nature of metastasis as well as rapid growth of previously debulked tumor,surgical intervention was deferred, IV steroids were started, and the patient was started on whole brain radiation per Radiation Oncology (first session 07/22 for 14 sessions).?? Interval History: Patient continues to rehab in place. Understands he will likely remain inpatient for the duration ofhis radiation treatment but is encouraged/motivated to strive for discharge home with outpatient radiation when safe. Plan: Plan: # Metastatic NSCLC # Brain mets - rapidly progressive # Right sided hemiplegia, acute - 2/2 rapidly progressive mets # Swelling of brain, post-operative changes and 2/2 mets # Worsening acute seizure activity 2/2 brain mets - MRI brain showed interval metastatic recurrence in 2 prior LT surgical beds with shifting edema, mild interval enlargement of 2 posterior RT frontal metastatic lesions and new sub-cm metastatic lesion in LT temporal lobe - Case discussed with neurosurgery who recommended Decadron 10mg IVx1 followed by 6mg Q6H IV - S/P Keppra load 1gm IV x1 - will now continue home Keppra at 1500mg BID - Ativan 0.5mg PRN seizures - Seizure precautions-following risk benefit discussion with the patient and lack of evidence of reccurent seizure, seizure precautions were discontinued. Patient agreeable to reimplementation if seizures should reoccur.?? - Fall risk- Fall precautions ordered?? - COMMUNICATION STUDIES PROFESSOR evaluation- cleared for regular diet?? - Cont home sodium tablets - goal sbp 90-160 - Q4H neuro checks: ?- ??if acute twitching, would discuss with neurology immediately givenconcern for seizure and possible need for vEEG or Depakote load ?- if acute worsening of neuro exam, may then be candidate for Mannitol. Very poor candidate for surgery given aggressive nature of malignancy and number of lesions. Additionally concern about post-op swelling delaying radiation - Neurology, neurosurgery, oncology, radiation oncology and palliative input greatly appreciated - Will continue with IV steroids for now - Will start whole brain radiation therapy today for 14 planned sessions - anticipate completion [place] [facility] if pt otherwise medically ready for discharge and cleared for home; if requires rehab, anticipate would complete course here. - Given GOC as above, will engage PT/OT. ?? # Leukocytosis, chronic - stable - in setting of chronic steroid use - no sign of active infection ?? # CAD with h/o 4v CABG # HTN # HLD - Cont??Beta Cassie, and statin IV access/ MIVF PIV Tubes/ Drains N/A DVT prophylaxis Heparin PT/OT/COMMUNICATION STUDIES PROFESSOR ordered Wound care N/A Anticipated Disposition TBD Team Pager ( Coverage 02/10): [phone] Code Status DNR/DNI PCP Myriam Riggins MD SHARED VISIT This patient was seen in conjunction with Dr. Hector Guerin as part of a shared visit. Stephanie Bird APRN 07/27/2021 Kaleigh Ledesma MD - 07/27/2021 11:23 AM EDT Palliative Care Daily Progress Note NAME: Ilir Laird Encounter Date: 07/27/2021 Inpatient Attending: Presley Guerin MD PCP: Myriam Riggins MD Hospital day: Hospital Day 6 days ID: Ilir Laird is a 75 y.o. male from [place], [place] with newly diagnosed NSCLC with mets to the brain s/p debulking craniotomy on 06/30/21. After the recent initial June hospitalization, he was discharged to rehab and his course was complicated by recurrent seizures and new onset right hemiplegia forwhich he presents to [facility]. He continues to be followed by the Palliative Care service for goals of care and decision making support. Interval History: - Last seen by palliative care team on 07/22 by Mayra Smith APRN - Now receiving brain radiation for metastatic reoccurrence with enlargement of metastatic lesions Physical sx/ROS: Symptoms were not the focus of this visit. Emotional/coping/counseling: I visited Ilir at bedside. His daughters Antonina and Leida were not present. Mayra had previously gathered the following psychosocial background: He shared that he loves motorcycles, as he's ridden one since high school. His truest, beloved manager acquisition is his dog, Truman; he's a to retriever that Ilir has had for 5 years. Ilir was emotional in speaking about Truman and how much he cares for him. He shared how Truman has been at his side through tough times including during this cancer journey. 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 He shared that he retired after his CABG. Sabi has his 2 daughters, Leida and Antonina, whom he loves very much; they are very big supports for him. Of note, Antonina works in home health. Ilir also has multiple grandchildren. He's someone who gets along with everyone and has a big network of supportive friends. He also has a good sense of humor. I spent time on coping support. We talked about how radiation was going - well without symptoms; howhe was doing in terms of PT and getting his strength back - working hard but feels like he has a long way to go. He became tearful when he talked about his daughters and all that they have done to carefor him. He expressed gratitude for our conversation and willingness to talk to other care team members who might provide coping support. Relevant Palliative Care Medications: Scheduled: ??? calcium carbonate 500 mg Oral BID ??? atorvastatin 80 mg Oral QPM ??? levETIRAcetam 1,500 mg Oral BID ??? metoprolol tartrate 12.5 mg Oral BID ??? pantoprazole EC 40 mg Oral Daily ??? sodium chloride 1 g Oral TID ??? dexamethasone inj 6 mg Intravenous Q6H CORIN ??? sodium chloride 0.9 % (flush) 5 mL Intravenous BID ??? heparin (porcine) 5,000 Units Subcutaneous Q8H CORIN ??? divalproex EC 500 mg Oral BID PRNs (including 24 hour usage): None Social History/Context: Reviewed. 2 Daughters: Leida (Ana) and Antonina (works in [employer]) Beloved to retriever Max Physical Examination: Patient Vitals for the past 24 hrs: Temp Heart Rate From SP02 Pulse Resp BP SpO2 O2 Device 07/26/21 1127 -- 64 bpm -- -- 143/63 -- -- 07/26/21 1129 36.7 ??C (98.1 ??F) 64 bpm 64 18 142/63 93 % RA 07/26/21 1600 -- -- -- -- -- -- RA 07/26/21 1915 36.5 ??C (97.7 ??F) 64 bpm 62 18 129/75 94 % RA 07/26/21 2355 36.6 ??C (97.9 ??F) 68 bpm -- 16 97/60 92 % RA 07/27/21 0511 36.9 ??C (98.4 ??F) 61 bpm -- 18 128/63 91 % RA 07/27/21 0816 36.5 ??C (97.7 ??F) 79 bpm -- 19 146/67 92 % RA GEN: older man, in bed with HOB elevated, in no acute distress PULM: respirations regular, unlabored on RA NEURO: awake, alert, oriented, cleer speech, R sided weakness of upper and lower extremities PSYCH: intermittently tearful, emotional Labs/Radiology: relevant interval data reviewed, pertinent results include: Lab Results Component Value Date WBC 12.9 (H) 07/27/2021 HGB 13.2 (L) 07/27/2021 HCT 38.4 (L) 07/27/2021 MCV 87.3 07/27/2021 PLATELET 162 07/27/2021 Lab Results Component Value Date NA 134 (L) 07/27/2021 K 4.7 07/27/2021 CL 100 07/27/2021 CO2 22 07/27/2021 BUN 29 (H) 07/27/2021 CREATININE 0.93 07/27/2021 GLUCOSE 130 07/27/2021 CALCIUM 7.8 (L) 07/27/2021 ESTGFR 81 07/27/2021 Lab Results Component Value Date ALT 19 07/26/2021 AST 14 07/26/2021 ALKPHOS 93 07/26/2021 BILITOT 0.4 07/26/2021 BILIDIR 0.1 07/23/2021 ALBUMIN 3.3 07/26/2021 PROT 5.2 (L) 07/26/2021 07/21/2021 MRI Brain IMPRESSION 1. 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 2. Mild interval enlargement of 2 posterior right frontal metastatic lesions and a new subcentimetermetastatic lesion in the anteromedial left temporal lobe. Palliative Care Assessment: Ilir is a 75 y.o. man from the [facility] with newly diagnosed metastatic NSCLC with reoccurrence of metastatic brain lesions, indicating accelerated, symptomatic progression, as he presents with new onset R sided weakness. He seems to have an accurate understanding of the worrisome nature of his limited prognosis. He is clear about his goals of wanting to be home with his family and dog, while also being willing to undergo cancer-directed treatment, most likely whole brain radiation, for the hope of getting more time and possibly improving his functional status. Plan/Recommendations: Goals of Care - Continues to work towards functional recovery with whole brain radiation and PT; has protections of DNR/DNI in place - Palliative care will continue to follow while inpatient and consider appropriate outpatient follow-up, most likely to connect with [facility] Palliative Care Team since he will be getting treatment at [facility] Support - Patient expressed gratitude for listening and presence. Explore what other team members might be supportive of him. Has been seen by Jeana JOSHUA and is open to merchandise team manager with the caveat that he doesn't feel he is spiritual or religous but he would welcome talking about the outdoors/nature. Palliative Care follow-up plan: Medical team Nursing team Psychosocial Support Inpatient Ongoing while inpatient; please page [phone] if need assistance over the weekend, otherwise, will re-engage on Sunday Palliative care aids social worker to assist with completion of AD to name healthcare agents Outpatient Most likely to f/u with [facility] Palliative Care teams since he will be getting treatment at [facility] This was a 15 min visit with 15 min spent in direct counseling and coordination of care regarding goals of care and decision making support. Kaleigh Ledesma MD Palliative care team pager #[phone] Sigrid Dozier APRN - 07/27/2021 11:22 AM EDT Palliative Care Encounter Note Please see Dr. Ledesma's note for further details of this encounter with plan of care was formulated with my input. Relevant History 75 y/o male from [place], [place] with recent dx of NSCLC with metastasis to brain, w/p debulking crani 06/30/21. Discharged to rehab and represented with seizures and right hemiplegia. He has initiated WBXRT. He continues to be follow by the palliative care team for assistance for he and family in goals of care and decision making as well as coping support. Assessment and Plan Ilir Laird is a 75 y.o. male with metastatic NSCLC with mets to brain, s/p crani resection and initiation of WBXRT in hopes of symptom improvement and wanting to be home with family and his dog for more time with better functional status. He and family have shared understanding that rapid symptom progression may be worrisome for limited prognosis. He has communicated desire to limit cares such as resuscitation. Now DNR/DNI. Plan will be to remain in hospital as he completes course of WBXRT. We will continue to follow while in hospital for coping support and remain available to continue to discussgoals of care as his course evolves. We will plan to connect to outpatient palliative care with [facility]. Symptoms/Active Palliative Problems: ??? Goals of care ??? Coping with serious illness ??? Palliative care encounter ??? Metastatic non-small cell lung cancer Sigrid Dozier APRN 07/29/21 Palliative Care team pager [phone] CIT Stephanie Bird APRN - 07/26/2021 11:27 AM EDT [facility] Medicine Daily Progress Note Admit Date: 07/21/2021 Hospital Day 5 days Active Hospital Problems Diagnosis ??? Right sided weakness ??? Right hemiplegia Resolved Hospital Problems No resolved problems to display. 24 Hour Events: -No acute overnight events -Patient seen and evaluated at bedside -Patient remains highly motivated to rehab in place -Performed in bed mobility exercises to include bridging, bilateral leg lifts, and bilateral leg abduction -Some difficulty noted lifting right leg with bilateral leg involvement versus lifting right leg independently -Last bowel movement today, 07/26 ROS: Denies fever, chills, malaise, PINEDA, lightheadedness, chest pain, palpitations, SOB, dyspnea, N/V/D, constipation, dysuria, flank pain, edema Physical Exam Vitals Range last 24 hrs Temperature Temp: [36.3 ??C (97.4 ??F)-36.9 ??C (98.4 ??F)] Heart Rate Heart Rate: [76] Blood Pressure BP: (121-143)/(67-73) Respiratory Rate Resp: [17-20] SpO2 SpO2: [90 %-99 %] Intake/Output Summary (Last 24 hours) at 07/26/2021 1127 Last data filed at 07/26/2021 0813 Gross per 24 hour Intake 1455 ml Output 725 ml Net 730 ml Patient Vitals for the past 168 hrs: Weight 07/21/21 1039 79.4 kg (175 lb) BMI: Weight: 79.4 kg (175 lb) (07/21/21 1039) BMI (Calculated): 26.61 BMI Classification: Over Weight Estimated Creatinine Clearance: 79.4 mL/min (A) (based on SCr of 0.79 mg/dL (L)). CONSTITUTIONAL: Patient is an elderly appearing gentleman, reclining comfortably in bed upon entering room. No acute distress. Breathing comfortably on room air and able to communicate in full sentences. HEENT: Normocephalic, atraumatic. Bilateral sclera anicteric and without injection. No conjunctival exudate or injection. Mucous membranes moist. NECK: Trachea midline, no evidence of thyromegaly. No elevation in JVP appreciated. CHEST: S1S2, RRR, no murmurs, rubs, clicks. LUNGS: Respiratory effort and expansion good, equal, and symmetric bilaterally. Bilateral lung sherwood clear to auscultation with no adventitious sounds noted. ABDOMEN: Round, soft, non-tender to palpation. Bowel sounds normoactive throughout. No masses or hepatosplenomegaly noted. EXTREMITIES: Distal extremities warm and well perfused x4. Radial pulses +2, equal, and symmetric. Pedal pulses +1, equal, and symmetric. SKIN: Warm and dry to touch. NEURO: Right pupil slightly larger than left. Reactive equally to light. EOMI. Alert and oriented x4. Right sided hemiplegia most notable in right upper extremity. Supervisor Particleboard strength 4/5 on R and 5/5 of left. Right dorsiflexion and extension 3/5. Left dorsiflexion and extension 5/5. No additional focal deficit noted. PSYCH: Affect pleasant. Patient cooperative. Speech pattern and speed appropriate. Studies reviewed in eDH. Remarkable for the following: LABS: Recent Labs 07/26/2142707/25/21114307/24/21422 WBC 13.2* 13.8* 12.4* HGB 13.8 14.0 12.6* HCT 40.2* 40.5 37.7* PLATELET 178 185 190 Recent Labs 07/26/2142707/25/21 11407/24/21 042 NA 133* 132* 132* K 4.5 4.5 4.4 CL 98 98 100 CO2 22 22 21* BUN 26* 28* 28* CREATININE 0.79* 0.87 0.85 Recent Labs 07/26/2142707/25/21114307/23/21 0457 07/22/21 0459 AST 14 13 13 17 ALT 19 20 22 28 ALKPHOS 93 84 83 100 BILITOT 0.4 0.4 0.4 0.3 BILIDIR -- -- 0.1 0.1 Recent Labs 07/26/2142707/25/21 114 07/24/21 0423 CALCIUM 8.0* 8.3* 7.9* PHOS 3.5 -- -- No results for input(s): PT, INR, PTT in the last 168 hours. No results for input(s): CK, TROPONINT in the last 168 hours. FSBG Trend No results for input(s): POCGLU in the last 72 hours. MICRO: No results for input(s): URINECULTURE in the last 720 hours. No results for input(s): GRAMSTAIN, BFCX, LOWERRESPCX, TISSUECX in the last 720 hours. No results for input(s): BLOODCX in the last 720 hours. ECG: No results for input(s): DIAGLINE, QTCCALC in the last 720 hours. VASCULAR: No results for input(s): VBTEXTRPT in the last 720 hours. IMAGING: Results for orders placed or performed during the hospital encounter of 07/21/21 CT Head wo Contrast (Generic) (Exam End: 07/21/2021 11:08 AM) Impression Increased size of hyperdense metastases along both cerebral convexities. Increased left frontoparietal vasogenic edema, sulcal effacement and mass effect on the left lateral ventricle. Similar vasogenic edema surrounding the right frontal convexity lesions. Thank you for letting us participate in the care of this patient. If you are a health care provider and have any questions regarding this report, please contact the number below. For patients who have questions please contact the health lead caregiver that requested your imaging first. Electronically signed by: Debo Davies MD, [facility] ([phone]), at 07/21/2021 11:33 AM MRI Brain wwo Contrast (Generic) (Exam End: 07/21/2021 3:51 PM) Impression 1. 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 2. Mild interval enlargement of 2 posterior right frontal metastatic lesions and a new subcentimeter metastatic lesion in the anteromedial left temporal lobe. Thank you for letting us participate in the care of this patient. If you are a health care provider and have any questions regarding this report, please contact the number below. For patients who have questions please contact the health lead caregiver that requested your imaging first. Electronically signed by: Hemant Vanegas MD, [facility] ([phone]), at 07/21/2021 4:[address] Rad Onc Neuro Interp Only (Exam End: 07/22/2021 3:34 PM) Impression Expected findings. Thank you for letting us participate in the care of this patient. If you are a health care provider and have any questions regarding this report, please contact the number below. For patients who have questions please contact the health lead caregiver that requested your imaging first. Electronically signed by: Hemant Vanegas MD, [facility] ([phone]), at 07/22/2021 4:12 PM Inpatient Medications: Scheduled ??? calcium carbonate 500 mg Oral BID ??? atorvastatin 80 mg Oral QPM ??? levETIRAcetam 1,500 mg Oral BID ??? metoprolol tartrate 12.5 mg Oral BID ??? pantoprazole EC 40 mg Oral Daily ??? sodium chloride 1 g Oral TID ??? dexamethasone inj 6 mg Intravenous Q6H CORIN ??? sodium chloride 0.9 % (flush) 5 mL Intravenous BID ??? heparin (porcine) 5,000 Units Subcutaneous Q8H CORIN ??? divalproex EC 500 mg Oral BID Continuous infusions: PRN: bisacodyL, acetaminophen, LORazepam, sodium chloride 0.9 % (flush), lidocaine, melatonin Assessment: Mr. 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 He was admitted to hospital medicine with an MRI significant for evidence of brain lesion recurrence and enlargement of metastatic lesions. Given the extensive nature of metastasis as well as rapid growth of previously debulked tumor,surgical intervention was deferred, IV steroids were started, and the patient was started on whole brain radiation per Radiation Oncology (first session 07/22 for 14 sessions). Interval History: Mr. Laird continues to remain highly motivated to improve strength while inpatient. Performing both sit to stands daily and now in bed exercise for improved mobility. Currently, he remain 1-2 assist for transfers which unfortunately makes discharge home unsafe. Given his self motivation, it may be reasonable to assume he will rehab in place enough to complete whole brain radiation as an outpatient but it may be he remains for the duration of his radiation treatment with subsequent discharge after. Plan: # Metastatic NSCLC # Brain mets - rapidly progressive # Right sided hemiplegia, acute - 2/2 rapidly progressive mets # Swelling of brain, post-operative changes and 2/2 mets # Worsening acute seizure activity 2/2 brain mets - MRI brain showed interval metastatic recurrence in 2 prior LT surgical beds with shifting edema, mild interval enlargement of 2 posterior RT frontal metastatic lesions and new sub-cm metastatic lesion in LT temporal lobe - Case discussed with neurosurgery who recommended Decadron 10mg IVx1 followed by 6mg Q6H IV - S/P Keppra load 1gm IV x1 - will now continue home Keppra at 1500mg BID - Ativan 0.5mg PRN seizures - Seizure precautions-following risk benefit discussion with the patient and lack of evidence of reccurent seizure, seizure precautions were discontinued. Patient agreeable to reimplementation if seizures should reoccur. - Fall risk- Fall precautions ordered - COMMUNICATION STUDIES PROFESSOR evaluation- cleared for regular diet - Cont home sodium tablets - goal sbp 90-160 - Q4H neuro checks: ?- ??if acute twitching, would discuss with neurology immediately givenconcern for seizure and possible need for vEEG or Depakote load ?- if acute worsening of neuro exam, may then be candidate for Mannitol. Very poor candidate for surgery given aggressive nature of malignancy and number of lesions. Additionally concern about post-op swelling delaying radiation - Neurology, neurosurgery, oncology, radiation oncology and palliative input greatly appreciated - Will continue with IV steroids for now - Will start whole brain radiation therapy today for 14 planned sessions - anticipate completion near [facility] if pt otherwise medically ready for discharge and cleared for home; if requires rehab, anticipate would complete course here. - Given GOC as above, will engage PT/OT. ?? # Leukocytosis, chronic - stable - in setting of chronic steroid use - no sign of active infection ?? # CAD with h/o 4v CABG # HTN # HLD - Cont Beta Cassie, and statin IV access/ MIVF PIV Tubes/ Drains N/A DVT prophylaxis Heparin PT/OT/COMMUNICATION STUDIES PROFESSOR Ordered Wound care N/A Anticipated Disposition TBD Team Pager ( Coverage 02/10): [phone] Family Update Daughter, Ana, updated at bedside PCP Myriam Riggins MD SHARED VISIT This patient was seen in conjunction with Dr. Hector Guerin as part of a shared visit. Stephanie Bidr, ROLLER REPAIRER 07/26/2021 Mag Reaves - 07/25/2021 2:53 PM EDTSummary: Advanced Directives Met with pt. We reviewed copy of [place]-Advance Directives. I assisted pt with completion, and requestedcopy be scanned into medical record today. Sherie Melara OTA - 07/25/2021 2:52 PM EDT Occupational Therapy Treatment Note Treatment Number OT: 2 Patient Dx: Ilir Laird is a 75 y.o. male with pmhx of Metastatic NSCLC to the brain s/p debulking,CAD, HLD who presents to the ED for right sided weakness. ? Neurology is consulted for ongoing seizures. He has significant right sided weakness with decreased sensation over RLE. MRI showed metastatic reoccurence on the left with interval enlargement of 2 posterior right frontal metastatic lesions and new subcentimeter lesion in anteromedial left temproal love. Patient's history consistent with focal status aborted with ativan. Patient now on keppra 1.5g BIDand depakote 500mg BID. LFT's obtained were wnl and depakote level to be drawn prior to AM dose tomorrow. Patient is receiving decadron 6mg q6hr. If there is ongoing concern for seizures can obtain cVEEG monitoring. ? Past Medical History Past Medical History: Diagnosis Date ??? CAD (coronary artery disease) ? s/p CABG 2018 ??? High cholesterol ? Hypertension ? Tobacco use ? Past Surgical History Past Surgical History: Procedure Laterality Date ??? PRO EXCIS SUPRATENT BRAIN TUMOR Left 06/30/2021 ?? @CRANI, FOR TUMOR, SUPRATENTORIAL, NOT MENINGIOMA (WRVU 30.83) [facility] ??? PRO MICROSURG TECHNIQUES, REQ OPER MICROSCOPE N/A 06/30/2021 ?? MICROSCOPE USE (WRVU 3.46) performed by Darian Justice MD at [facility] MAIN OR ??? PRO STEREOTACTIC CPTR ASSTD PX CRANIAL, INTRADURAL N/A 06/30/2021 ?? STEREOTACTIC COMPUTER-ASSTD NAVIGATIONAL CRANIAL INTRADURAL (WRVU 3.75) performed by Darian Justice MD at [facility] MAIN OR ? Social History: Patient typically lives??alone in a house in [place], [place] with his dog Home Setup:??Pt reports that he has a ramp to enter with bilateral rails. Pt has one level home witha basement. Pt reports that he sleeps on the sofa at times. Pt has a tub/shower combo with GB.?? DME:??Walker, wheelchair?? Baseline ADL/Mobility:??Prior to admission; Pt was at [facility] getting rehab s/p last hospital admission and then discharged home. Pt was home for one day prior to needing to return to hospital due toincreased weakness in R hemibody. 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 Pt daughter Antonina, lives farther away, but is supportive. ?? Precautions/Special Considerations:??Limited code, verbal order from Dr. Guerin; assume AAT, seizure precautions, at risk for falls, SBP 90-160, R sided weakness, R shoulder precautions Interval History: Per MD note 07/25/21 -No acute overnight events -Patient seen and evaluated in person at bedside. -Declining seizure precautions and without seizure for multiple days -Denies muscular fasciculations or twitching for multiple days -Bedside sit to stand performed x3 at the time of assessment -Sister at bedside for visit today S: I know I need to keep moving to get stronger O: Patient seen for skilled OT treatment, and demonstrated the following: ?? Self-care: ?? After set up and seated in recliner, pt able to perform oral care using LUE requiring CGA and education for using RUE to stabilize toothbrush while applying toothpaste w/ LUE; after application of toothpaste pt performed functional task w/ supervision; Pt most appreciative ?? Max A to don RLE AFO and bilateral shoes while seated EOB ?? After setup and seated EOB, pt able to wash face w/ supervision and LUE; Pt most appreciative ?? Pt dependent for all toileting hygiene ?? Max A to don sling while seated EOB ?? Functional Mobility: ?? Supine > sit: Pt required min A for RLE to EOB then VIDEO EDITOR assist using LUE to bring trunk fully upright. Pt required VIDEO EDITOR assist to square up on EOB. Pt demonstrated fair static seated balance once EOB ?? Sit <> stand: Min A of 2 using gate belt and VIDEO EDITOR ?? Transfer: Mod A of 2 using gate belt and VIDEO EDITOR to SPT from bed > recliner requiring multimodal cues for technique. ?? Cognition: ?? Behavior / Mood: alert, cooperative and highly motivated ?? Alert and oriented to: person, place, time and situation ?? Follows commands: 1 step, 100% of the time and requires increased time ?? Attention: WFL ?? Safety awareness: fully aware of deficits ?? Endurance:Pt tolerated OT session on RA ?? Strength/ROM: ?? Educated and provided blue therasponge for use in R hand to increase strength/dexterity and reduce edema. Pt demonstrated good knowledge of HEP and encouraged to perform multiple times per day. Pain: no pain reported Education: Pt/family/caregiver education ongoing regarding: Role of occupational therapy/rehabilitation, Transfers, Assistive device/technique, ADL, Exercise, Positioning, Safety, Precautions/Protocol,Functional Mobility, Home Program, Balance, Recommendations and Discharge planning. Staff Communication: Patient status, treatment, and mobility recommendations discussed with nursing/other staff. ASSESSMENT: Pt seen for Occupational Therapy interventions and continuation of care. Pt continues arash highly motivated for therapy and would be an excellent candidate for acute rehab once medically ready for d/c. Pt will benefit from ongoing therapeutic interventions to achieve pt's and therapy goals Equipment needs at discharge: Anticipated Discharge Disposition: acute rehabilitation facility Daily schedule / Staff Recommendations: ?? Utilize upright chair position using bed features or transfer to recliner chair as appropriate with??min Ax2 with FWW, ambulate as tolerated ?? Encourage participation in ADL's by providing set up A on tray table and physical assist only as needed Occupational Therapy Goals: To be achieved by??08/08/21. 1. Pt will be??min A??for LB dressing routines with AE as needed at seated/standing levels 2. Pt will be??min Ax1??for toileting routine at ambulatory level with LRAD 3. Pt will be??min A for UB dressing routines?? 4. Pt will be independent for HEP for BUEs 5.??Pt will be able to stand for 8 minutes to perform Therapy Frequency (OT): 2-4 times/wk Total Minutes, Occupational Therapy: 33 ([facility] x 2 (10:04 - 10:37)) Pager: [phone] AROLDO PINEDA 07/25/2021 Occupational Therapy Rehabilitation Department Stephanie Bird APRN - 07/25/2021 12:35 PM EDT [facility] Medicine Daily Progress Note Admit Date: 07/21/2021 Hospital Day 4 days Active Hospital Problems Diagnosis ??? Right sided weakness ??? Right hemiplegia Resolved Hospital Problems No resolved problems to display. 24 Hour Events: -No acute overnight events -Patient seen and evaluated in person at bedside. -Declining seizure precautions and without seizure for multiple days -Denies muscular fasciculations or twitching for multiple days -Bedside sit to stand performed x3 at the time of assessment -Sister at bedside for visit today ROS: Denies fever, chills, malaise, PINEDA, lightheadedness, chest pain, palpitations, SOB, dyspnea, N/V/D, constipation, dysuria, flank pain, edema Physical Exam Vitals Range last 24 hrs Temperature Temp: [36.3 ??C (97.4 ??F)-37 ??C (98.6 ??F)] Heart Rate Heart Rate: [72] Blood Pressure BP: (119-138)/(57-73) Respiratory Rate Resp: [16-20] SpO2 SpO2: [92 %-95 %] Intake/Output Summary (Last 24 hours) at 07/25/2021 1255 Last data filed at 07/25/2021 0800 Gross per 24 hour Intake 820 ml Output 550 ml Net 270 ml Patient Vitals for the past 168 hrs: Weight 07/21/21 1039 79.4 kg (175 lb) BMI: Weight: 79.4 kg (175 lb) (07/21/21 1039) BMI (Calculated): 26.61 BMI Classification: Over Weight Estimated Creatinine Clearance: 72.1 mL/min (based on SCr of 0.87 mg/dL). CONSTITUTIONAL: Patient is an elderly appearing gentleman, sitting upright in the bedside chair uponentering the room. No acute distress. Breathing comfortably on room and able to communicate in full sentences. HEENT: Normocephalic, atraumatic. Bilateral sclera anicteric and without injection. No conjunctival exudate or injection. Glasses in place. Mucous membranes moist. NECK: Trachea midline, no evidence of thyromegaly. No elevation in JVP appreciated. CHEST: S1S2, RRR, no murmurs, rubs, clicks. LUNGS: Respiratory effort and expansion good, equal, and symmetric bilaterally. Bilateral lung sherwood clear to auscultation with no adventitious sounds noted. ABDOMEN: Round, soft, non-tender to palpation. Bowel sounds normoactive throughout. No masses or hepatosplenomegaly noted. EXTREMITIES: Distal extremities warm and well perfused x4. Radial pulses +2, equal, and symmetric. Pedal pulses +1, equal, and symmetric. SKIN: Warm and dry to touch. NEURO: Right pupil slightly larger than left. Reactive equally to light. EOMI. Alert and oriented x4. Right sided hemiplegia most notable in right upper extremity. Supervisor Particleboard strength 4/5 on R and 5/5 of left. Right dorsiflexion and extension 3/5. Left dorsiflexion and extension 5/5. No additional focal deficit noted. PSYCH: Affect pleasant. Patient cooperative. Speech pattern and speed appropriate. Studies reviewed in eD. Remarkable for the following: LABS: Recent Labs 07/25/21 1144 07/24/21 04207/23/21 0457 WBC 13.8* 12.4* 13.3* HGB 14.0 12.6* 12.7* HCT 40.5 37.7* 37.7* PLATELET 185 190 203 Recent Labs 07/25/21 1144 07/24/21 0423 07/23/21 0457 NA 132* 132* 131* K 4.5 4.4 4.1 CL 98 100 98 CO2 22 21* 20* BUN 28* 28* 27* CREATININE 0.87 0.85 0.82 Recent Labs 07/25/21 1144 07/23/21 0457 07/22/21 0459 AST 13 13 17 ALT 20 22 28 ALKPHOS 84 83 100 BILITOT 0.4 0.4 0.3 BILIDIR -- 0.1 0.1 Recent Labs 07/25/21 1144 07/24/2142207/23/21456 CALCIUM 8.3* 7.9* 8.2* No results for input(s): PT, INR, PTT in the last 168 hours. No results for input(s): CK, TROPONINT in the last 168 hours. FSBG Trend No results for input(s): POCGLU in the last 72 hours. MICRO: No results for input(s): URINECULTURE in the last 720 hours. No results for input(s): GRAMSTAIN, BFCX, LOWERRESPCX, TISSUECX in the last 720 hours. No results for input(s): BLOODCX in the last 720 hours. ECG: No results for input(s): DIAGLINE, QTCCALC in the last 720 hours. VASCULAR: No results for input(s): VBTEXTRPT in the last 720 hours. IMAGING: Results for orders placed or performed during the hospital encounter of 07/21/21 CT Head wo Contrast (Generic) (Exam End: 07/21/2021 11:08 AM) Impression Increased size of hyperdense metastases along both cerebral convexities. Increased left frontoparietal vasogenic edema, sulcal effacement and mass effect on the left lateral ventricle. Similar vasogenic edema surrounding the right frontal convexity lesions. Thank you for letting us participate in the care of this patient. If you are a health care provider and have any questions regarding this report, please contact the number below. For patients who have questions please contact the health lead caregiver that requested your imaging first. Electronically signed by: Debo Davies MD, [facility] ([phone]), at 07/21/2021 11:33 AM MRI Brain wwo Contrast (Generic) (Exam End: 07/21/2021 3:51 PM) Impression 1. 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 2. Mild interval enlargement of 2 posterior right frontal metastatic lesions and a new subcentimeter metastatic lesion in the anteromedial left temporal lobe. Thank you for letting us participate in the care of this patient. If you are a health care provider and have any questions regarding this report, please contact the number below. For patients who have questions please contact the health lead caregiver that requested your imaging first. Rad Onc Neuro Interp Only (Exam End: 07/22/2021 3:34 PM) Impression Expected findings. Thank you for letting us participate in the care of this patient. If you are a health care provider and have any questions regarding this report, please contact the number below. For patients who have questions please contact the health lead caregiver that requested your imaging first. Electronically signed by: Hemant Vanegas MD, [facility] ([phone]), at 07/22/2021 4:12 PM Inpatient Medications: Scheduled ??? atorvastatin 80 mg Oral QPM ??? levETIRAcetam 1,500 mg Oral BID ??? metoprolol tartrate 12.5 mg Oral BID ??? pantoprazole EC 40 mg Oral Daily ??? sodium chloride 1 g Oral TID ??? dexamethasone inj 6 mg Intravenous Q6H CORIN ??? sodium chloride 0.9 % (flush) 5 mL Intravenous BID ??? heparin (porcine) 5,000 Units Subcutaneous Q8H CORIN ??? divalproex EC 500 mg Oral BID Continuous infusions: PRN: bisacodyL, acetaminophen, LORazepam, sodium chloride 0.9 % (flush), lidocaine, melatonin Assessment: Mr. 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 He was admitted to hospital medicine with an MRI significant for evidence of brain lesion recurrence and enlargement of metastatic lesions. Given the extensive nature of metastasis as well as rapid growth of previously debulked tumor,surgical intervention was deferred, IV steroids were started, and the patient was started on whole brain radiation per Radiation Oncology (first session 07/22 for 14 sessions). Interval History: Strength improving and patient amenable to participating in sit to stand sessions weekly to continue to maintain/improve baseline function. Remains unsafe to return home at this time.Will rehab in place while undergoing radiation and evaluate qualification for outpatient radiation. Plan: # Metastatic NSCLC # Brain mets - rapidly progressive # Right sided hemiplegia, acute - 2/2 rapidly progressive mets # Swelling of brain, post-operative changes and 2/2 mets # Worsening acute seizure activity 2/2 brain mets - MRI brain showed interval metastatic recurrence in 2 prior LT surgical beds with shifting edema, mild interval enlargement of 2 posterior RT frontal metastatic lesions and new sub-cm metastatic lesion in LT temporal lobe - Case discussed with neurosurgery who recommended Decadron 10mg IVx1 followed by 6mg Q6H IV - S/P Keppra load 1gm IV x1 - will now continue home Keppra at 1500mg BID - Ativan 0.5mg PRN seizures - Seizure precautions-following risk benefit discussion with the patient and lack of evidence of reccurent seizure, seizure precautions were discontinued. Patient agreeable to reimplementation if seizures should reoccur. - Fall risk- Fall precautions ordered - COMMUNICATION STUDIES PROFESSOR evaluation- cleared for regular diet - Cont home sodium tablets - goal sbp 90-160 - Q4H neuro checks: - if acute twitching, would discuss with neurology immediately given concern for seizure and possible need for vEEG or Depakote load - if acute worsening of neuro exam, may then be candidate for Mannitol. Very poor candidate for surgery given aggressive nature of malignancy and number of lesions. Additionally concern about post-op swelling delaying radiation - Neurology, neurosurgery, oncology, radiation oncology and palliative input greatly appreciated - Will continue with IV steroids for now - Will start whole brain radiation therapy today for 14 planned sessions - anticipate completion near [place] if pt otherwise medically ready for discharge and cleared for home; if requires rehab, anticipate would complete course here. - Given GOC as above, will engage PT/OT. ?? # Leukocytosis, chronic - stable - in setting of chronic steroid use - no sign of active infection ?? # CAD with h/o 4v CABG # HTN # HLD - Cont Beta Cassie, and statin IV access/ MIVF PIV Tubes/ Drains N/A DVT prophylaxis Heparin PT/OT/COMMUNICATION STUDIES PROFESSOR ordered Wound care N/A Anticipated Disposition TBD Team Pager (MD Coverage 02/10): [phone] Family Update Family updated at bedside at the time of assessment. PCP Myriam Riggins MD SHARED VISIT This patient was seen in conjunction with Dr. Hector Guerin as part of a shared visit. Stephanie Bird, ROLLER REPAIRER 07/25/2021 Elaine Fernández, PT - 07/25/2021 10:55 AM EDT Physical Therapy Note Treatment Number PT: 2 Patient profile: Ilir Laird is a 75 y.o. 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 Presley Guerin MD with new (R) sided twitching and (R) hemiplegia. MRI brain with evidence of recurrence of brain mets and new lesions as well per hospital medicine team report. Interval History: NAEO, declining seizure precautions (without seizure for multiple days), denying muscular fasciculations or twitching for multiple days Social History: Ilir typically??lives??alone in a house in [place], [place] with his dog. Pt reports that he has a ramp to enter with bilateral rails. Pt has one level home with a basement. Pt reports thathe sleeps on the sofa at times. Pt has a tub/shower combo with GB.?? DME:??[employer], wheelchair?? Baseline ADL/Mobility:??Prior to admission;??Pt was at [facility] getting rehab s/p last hospital admission and then discharged home. Pt was home for one day prior to needing to return to hospital due to increased weakness in R hemibody. 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 Pt daughter Antonina, lives farther away, but is supportive. ?? Precautions/Special Considerations: Code Status: Limitations , High risk for skin breakdown, At riskto fall, Seizure precautions, Maintain HOB elevation per Dr. Guerin, Maintain SBP 90-160, (R) sided weakness Lines: Marcellus, Telemetry, PIV Activity Orders: assume AAT per Diet: Regular adult diet Mobility and Positioning Recommendations: ?? Pt to utilize handhold assist x2 for stand-pivot transfers with nursing. Recommend wearing R AFO and shoe, manually block R knee. ?? Please encourage up to chair for meal times as able. Subjective: Wow, I can move my leg more than I thought! (referring to RLE during therapeutic exercise) Objective: Patient seen for physical therapy and demonstrated the following: Pain: no c/o pain during session Vital Signs: VSS throughout Mental Status: alert, oriented to person, place, and time Vision: glasses Skin: intact that was observed Musculoskeletal: ROM: LEs stiff, but grossly WFL Strength: LLE WFL, RLE 3-/5 at the hip 2+/5 at the knee Sensation: light touch minimally decreased to R foot Bed Mobility: HOB elevated, with bed rails Supine to Sit: Marimar x1 to assist with moving RLE off edge-of-bed Sit to Supine: not observed, session ended in bedside recliner chair Transfers: Sit to Stand: 2 repetitions with Marimar x2 handheld assist, safety belt, R AFO Stand to Sit: Marimar x2 with safety belt Bed to Chair: modA x2 with handheld assist, safety belt. Required manual assist to life RLE. Balance: Sitting: fair+, at first required Marimar to square up edge-of-bed, but then able to safely maintain sitting edge-of-bed during dynamic activities (donning socks, therapeutic exercise) with supervision only Standing Static: poor Standing Dynamic / Gait: poor Therex: 1 set x 8 repetitions of LAQ ANDRESSA (through 3/4 range) 1 set x 15 repetitions of quad sets ANDRESSA (encouraged to perform at least 4 sets x15 repetitions daily) Pt left in bedside recliner chair, with all needs met and with call lozano in reach following visit. Assessment: Ilir Laird was seen today for physical therapy treatment. Patient was a pleasant participant and tolerated the session well. Even so, he performed similarly to his previous session and continues to display deficits related to strength, balance, and activity tolerance, all which limit hisfunctional capabilities. As a result he will benefit from ongoing IP PT in house, as well as d/c to rehab facility to maximize function. Discharge Recommendations: Based on the current findings, Anticipated Discharge Disposition (PT): acute rehabilitation facilitywhen medically ready for hospital discharge. Consult Recommendations: No other consults recommended at this time. Equipment needs: TBD Goals: To be achieved by 08/01/21: all ongoing as of 07/25/21 1. Pt. to demonstrate knowledge of safety limitations and precautions and will appropriately requestassistance for functional activities and to mobilize. 2. Pt. to demonstrate understanding of appropriate seated LE exercises. 3. Pt to participate in standardized balance assessment. 4. Pt. to perform bed mobility independently from flat bed. 5. Pt. to perform transfers with modified independence using LRAD. 6. Pt. to ambulate >/=150 feet with modified independence using LRAD. 7. Family or caregiver to demonstrate understanding of therapeutic interventions to support the careof the patient. 8. Pt will tolerate progression towards upright with stable vital signs. Plan: Therapy Frequency (PT): 2-4 times/wk for therapy interventions as outlined in initial evaluation. Patient agrees with plan as stated. Time IN / OUT: 0572-6641 Total Minutes, Physical Therapy: 33 (therapeutic activity, therapeutic exercise) Elaine Fernández, PT Pager: [phone] Physical Therapy Inpatient Rehabilitation Department Presley Guerin MD - 07/24/2021 5:31 PM EDT Hospital Medicine Attending Daily Progress Note Admit Date: 07/21/2021 ( Hospital Day 3 days ) Active Hospital Problems Diagnosis ??? Right sided weakness ??? Right hemiplegia Resolved Hospital Problems No resolved problems to display. ASSESSMENT: 75 yo M with newly diagnosed NSCLC with brain mets s/p debulking 4/21 who presented to [facility] ED from rehab with new RT sided twitching and RT hemiplegia. MRI brain with evidence of recurrence of brain mets and new lesions as well. He was admitted to hospital medicine and evaluated by neurology and neurosurgery and started on IV steroids. No indication for Mannitol since neuro exam stable, and not ideal candidate for surgery given extent of disease and potential morbidity. He was evaluated by radiation oncology and will be started on whole brain radiation today 07/22 for 14 planned sessions. He was also evaluated by oncology whowill follow up final path and discuss systemic therapy as outpatient based on response to steroids and radiation, but felt prognosis was in range of 2-3 months, to more than a year, depending on response to therapy. Will not be safe for home and will rehab in place as he is doing radiation to see if he can qualify for outpatient radiation. PLAN: # Metastatic NSCLC # Brain mets - rapidly progressive # Right sided hemiplegia, acute - 2/2 rapidly progressive mets # Swelling of brain, post-operative changes and 2/2 mets # Worsening acute seizure activity 2/2 brain mets - MRI brain yesterday showed interval metastatic recurrence in 2 prior LT surgical beds with shifting edema, mild interval enlargement of 2 posterior RT frontal metastatic lesions and new sub-cm metastatic lesion in LT temporal lobe - Case discussed with neurosurgery who recommended Decadron 10mg IV*1 followed by 6mg Q6H IV - S/P Keppra load 1gm IV x1 - will now continue home Keppra at 1500mg BID - Ativan 0.5mg PRN seizures - Seizure precautions - Fall risk; bedrest ordered - COMMUNICATION STUDIES PROFESSOR evaluation - Cont home sodium tablets - goal sbp 90-160 - Q2H neuro checks: - if acute twitching, would discuss with neurology immediately given concern for seizure and possible need for vEEG or Depakote load - if acute worsening of neuro exam, may then be candidate for Mannitol. Very poor candidate for surgery given aggressive nature of malignancy and number of lesions. Additionally concern about post-op swelling delaying radiation - Neurology, neurosurgery, oncology, radiation oncology and palliative input greatly appreciated - Will continue with IV steroids for now - Will start whole brain radiation therapy today for 14 planned sessions - anticipate completion [place] [facility] if pt otherwise medically ready for discharge and cleared for home; if requires rehab, anticipate would complete course here. - Given GOC as above, will engage PT/OT. ?? # Leukocytosis, chronic - stable - in setting of chronic steroid use - no sign of active infection ?? # CAD with h/o 4v CABG # HTN # HLD - Cont BB, and statin Diet Regular diet Discharge planning TBD pending clarification in GOC PT/OT/Speech Ordered COMMUNICATION STUDIES PROFESSOR. Will defer PT/OT pending clarification of GOC Lines/Access PIV Bolivar catheter No DVT/GI Prophylaxis Lovenox Vital/lab/FS frequency Vitals Q6H, Labs Qdaily Code status Do NOT Attempt CPR - Inpatient Family Daughters updated at bedside. PCP Myriam Riggins MD [phone] Attestation IPI Certification I certify that I am a [facility] credentialed attending provider with admitting privileges and that the patient meets or has met medical necessity to require an inpatient IPI level of care meeting a minimum of two midnights or is on the [facility] inpatient only procedure list (status C) due to: concern for seizures Team (02/10 Coverage) [id number] Presley Guerin MD 07/24/2021 Subjective/24hr events: - Pt seen and examined at bedside - doing [id number] to rehab in place ROS: Patient denies fevers, chills, nausea/vomiting, diarrhea/constipation, sob/cp, dysuria. Vitals: Last value Range last 24 hrs Temperature Temp: 37 ??C (98.6 ??F) Temp: [36.4 ??C (97.5 ??F)-37 ??C (98.6 ??F)] Heart Rate Heart Rate: 72 Heart Rate: [59-72] Blood Pressure BP: 119/66 BP: (113-141)/(58-77) Respiratory Rate Resp: 19 Resp: [14-19] SpO2 SpO2: 94 % SpO2: [91 %-95 %] Intake/Output Summary (Last 24 hours) at 07/24/2021 1731 Last data filed at 07/24/2021 0800 Gross per 24 hour Intake 540 ml Output 590 ml Net -50 ml EXAM GEN: Lying in bed comfortably, NAD, on RA, breathing comfortably, speaking in full sentences, intermittently tearful HEENT: Anicteric, no conjunctival pallor, EOMI, PERRL CVS: RRR, S1+S2+no added sounds CHEST: CTABL, no added sounds ABD: Soft, ND/NT, BS+arya NEURO: AAO*3, no focal deficits. PSYCH: Normal mood and affect EXT: No edema, rigidity, tremors. - RUE 4/5 sales contracts analyst strength and 2/5 elbow/shoulder flexion/extension. - RLE 2/5 ankle and hip flexion/extension. 2/5 knee flexion, 5/5 knee extension. Decreased sensation RLE from thigh anteriorly to foot anteriorly. - LUE & LLE 5/5. SKIN: No rash or open wounds LABS: Reviewed in eDH. Remarkable for the following: Recent Labs 07/24/2142207/23/2145607/22/21458 WBC 12.4* 13.3* 9.8* HGB 12.6* 12.7* 13.2* HCT 37.7* 37.7* 39.3* PLATELET 190 203 217 Recent Labs 07/24/2142207/23/2145607/22/21458 NA 132* 131* 132* K 4.4 4.1 4.4 CL 100 98 100 CO2 21* 20* 19* BUN 28* 27* 28* CREATININE 0.85 0.82 0.93 GLUCOSE 133 133 154 CALCIUM 7.9* 8.2* 8.3* Recent Labs 07/23/2145607/22/21458 AST 13 17 ALT 22 28 ALKPHOS 83 100 BILITOT 0.4 0.3 BILIDIR 0.1 0.1 MICRO: No results for input(s): URINECULTURE in the last 720 hours. No results for input(s): BLOODCX in the last 720 hours. COVID 19 PCR 07/21/2021: not detected STUDIES: Results for orders placed or performed during the hospital encounter of 07/21/21 CT Head wo Contrast (Generic) (Exam End: 07/21/2021 11:08 AM) Impression Increased size of hyperdense metastases along both cerebral convexities. Increased left frontoparietal vasogenic edema, sulcal effacement and mass effect on the left lateral ventricle. Similar vasogenic edema surrounding the right frontal convexity lesions. Thank you for letting us participate in the care of this patient. If you are a health care provider and have any questions regarding this report, please contact the number below. For patients who have questions please contact the health lead caregiver that requested your imaging first. Electronically signed by: Debo Davies MD, [facility] ([phone]), at 07/21/2021 11:33 AM MRI Brain wwo Contrast (Generic) (Exam End: 07/21/2021 3:51 PM) Impression 1. 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 2. Mild interval enlargement of 2 posterior right frontal metastatic lesions and a new subcentimeter metastatic lesion in the anteromedial left temporal lobe. Thank you for letting us participate in the care of this patient. If you are a health care provider and have any questions regarding this report, please contact the number below. For patients who have questions please contact the health lead caregiver that requested your imaging first. Electronically signed by: Hemant Vanegas MD, [facility] ([phone]), at 07/21/2021 4:[address] Rad Onc Neuro Interp Only (Exam End: 07/22/2021 3:34 PM) Impression Expected findings. Thank you for letting us participate in the care of this patient. If you are a health care provider and have any questions regarding this report, please contact the number below. For patients who have questions please contact the health lead caregiver that requested your imaging first. Electronically signed by: Hemant Vanegas MD, [facility] ([phone]), at 07/22/2021 4:12 PM Medications: Scheduled Meds: ??? atorvastatin 80 mg Oral QPM ??? levETIRAcetam 1,500 mg Oral BID ??? metoprolol tartrate 12.5 mg Oral BID ??? pantoprazole EC 40 mg Oral Daily ??? sodium chloride 1 g Oral TID ??? dexamethasone inj 6 mg Intravenous Q6H CORIN ??? sodium chloride 0.9 % (flush) 5 mL Intravenous BID ??? heparin (porcine) 5,000 Units Subcutaneous Q8H CORIN ??? divalproex EC 500 mg Oral BID Continuous Infusions: PRN Meds:.bisacodyL, acetaminophen, LORazepam, sodium chloride 0.9 % (flush), lidocaine, melatonin Lyla Isaac RN - 07/24/2021 4:02 PM EDT OUTCOME EVALUATION NOTE: OUTCOME SUMMARY: Assumed care of patient. VSS on RA. Pt denies pain. Q4H neuro-checks unchanged. AOx4. Pt appears to be grieving over functional loss. Pt tearful and punching pillow in morning out of frustration while trying to transition from lying to the edge of the bed to use the commode. Pt endorsed feeling stronger than yesterday, but states that it is difficult for him to require assistance as he has always been independent. Positive reinforcement, reassurance, and comfort provided. Pt in highest spirits when family is at bedside. Dr. Guerin at bedside today, performing sit to stands with patient. Offers made to patient to get OOBto chair for meals, but refused. Pt states that he is going to ask his daughter to bring his hand-weights in for bed exercises. Resistance bands requested from PT in the meantime. Meds given per order. IV steroids given. Pt requesting dulcolax suppository in the AM. Given with good effect. 1 BM. Pt states that he has been having difficulty using urinal d/t hemiplegia. External male catheter placed with good effect. No further issues. Will notify MD of changes. PLAN MOVING FORWARD: Radiation tomorrow 05/23. Q4H neuro checks. Emotional support. Encourage activity. PT/OT. INDIVIDUALIZED FALL PREVENTION INTERVENTIONS: Patient-specific fall risk factors per assessment: [current deficits]: Generalized weakness. Hemiplegia. Assistance [level of assistance required for transfers and ambulation]: 2A FWW Supervision [direct monitoring required during toileting and ADLs]: Hands on Surveillance [continuous indirect monitoring]: Call lozano within reach. Purposeful rounding. Room near nursing station. Bed alarm on. Patient-specific fall prevention interventions for sensory deficits provided, if applicable: [X] No CPG GOAL OUTCOME EVALUATION: Marly Greer APRN - 07/24/2021 1:14 PM EDT Images from the original note were not included. Neurology Inpatient Consult Note Patient name:Ilir Laird Date of :1945 Admit date: 07/21/2021 Attending: Dr. Chow CC: Seizures? ID:Ilir Laird is a 75 y.o. male with pmhx of Metastatic NSCLC to the brain s/p debulking, CAD, HLDwho presents to the ED for right sided weakness. Neurology is consulted for question of ongoing seizures. Interval events: - NAEO - VPA load make him sleepy- but feeling well now -trough level this AM in the 60s - Feeling stronger after 2 rounds of whole brain radiation- specifically in UE and LLE, - no further seizures reported by pt or staff Past Medical History: Past Medical History: Diagnosis Date ??? CAD (coronary artery disease) s/p CABG 2018 ??? High cholesterol ??? Hypertension ??? Tobacco use Past Surgical History: Procedure Laterality Date ??? PRO EXCIS SUPRATENT BRAIN TUMOR Left 06/30/2021 @CRANI, FOR TUMOR, SUPRATENTORIAL, NOT MENINGIOMA (WRVU 30.83) performed by Darian Justice MD at [facility] MAIN OR ??? PRO MICROSURG TECHNIQUES, REQ OPER MICROSCOPE N/A 06/30/2021 MICROSCOPE USE (WRVU 3.46) performed by Darian Justice MD at [facility] MAIN OR ??? PRO STEREOTACTIC CPTR ASSTD PX CRANIAL, INTRADURAL N/A 06/30/2021 STEREOTACTIC COMPUTER-ASSTD NAVIGATIONAL CRANIAL INTRADURAL (WRVU 3.75) performed by Darian Justice MD at [facility] MAIN OR Medications: Scheduled Meds: ??? atorvastatin 80 mg Oral QPM ??? levETIRAcetam 1,500 mg Oral BID ??? metoprolol tartrate 12.5 mg Oral BID ??? pantoprazole EC 40 mg Oral Daily ??? sodium chloride 1 g Oral TID ??? dexamethasone inj 6 mg Intravenous Q6H CORIN ??? sodium chloride 0.9 % (flush) 5 mL Intravenous BID ??? heparin (porcine) 5,000 Units Subcutaneous Q8H CORIN ??? divalproex EC 500 mg Oral BID Continuous Infusions: PRN Meds:. Allergies: Allergies Allergen Reactions ??? Cis Free Text Allergy Environmental. CIS - Allergic Rhinitis Family history: Family History Problem Relation Age of Onset ??? Heart Disease Mother ??? Cerebrovascular Accident Father Social history: Social History Socioeconomic History ??? Marital status: Spouse name: Not on file ??? Number of children: Not on file ??? Years of education: Not on file ??? Highest education level: Not on file Occupational History ??? Not on file Tobacco Use ??? Smoking status: Former Smoker Packs/day: 1.00 Years: 30.00 Pack years: 30.00 ??? Smokeless tobacco: Former User Quit date: 06/24/2021 ??? Tobacco comment: Quit 5 days ago Vaping Use ??? Vaping Use: Never used Substance and Sexual Activity ??? Alcohol use: Yes Alcohol/week: 3.0 standard drinks Types: 3 Cans of beer per week Comment: Not recently ??? Drug use: Never ??? Sexual activity: Not Currently Other Topics Concern ??? Not on file Social History Narrative ??? Not on file Social Determinants of Health Financial Resource Strain: Not on file Food Insecurity: Not on file Transportation Needs: Not on file Physical Activity: Not on file Housing Stability: Not on file Physical Exam: Patient Vitals for the past 24 hrs: Temp Heart Rate From SP02 Pulse Resp BP SpO2 O2 Device 07/23/21 1559 36.6 ??C (97.9 ??F) 66 bpm -- 13 122/66 94 % RA 07/23/21 1951 36.5 ??C (97.7 ??F) 66 bpm -- 14 127/71 95 % 07/23/21 2310 36.6 ??C (97.9 ??F) 60 bpm -- 16 113/58 94 % RA 07/24/21 0327 36.4 ??C (97.5 ??F) 56 bpm -- 16 125/70 94 % RA 07/24/21 0910 36.5 ??C (97.7 ??F) 77 bpm 71 18 141/77 93 % RA 07/24/21 1115 36.7 ??C (98.1 ??F) 61 bpm 59 19 136/72 91 % RA General: alert, NAD Neuro exam: MS: Awake, alert, oriented to person, place, year, month No dysarthria, language fluent, cooperative with neuro exam CN: Pupils R>L 4/3, EOMI Facial sensation intact No facial asymmetry Hearing intact to voice Palate elevates symmetrically, tongue protrudes midline SCM and trap strength intact Motor: UE: 2/5 R, 5/5 L Arm abduction at shoulder 4/5 R, 5/5 L Elbow extension 3/5 R, 5/5 L Elbow flexion 4/5 R, 5/5 L Chief Innovation Officer LE: 2/5 R, 5/5 L Hip flexion 3/5 R, 5/5 L Knee extension 3/5 R, 5/5 L Knee flexion 2/5 R, 5/5 L Foot dorsiflexion 3/5 R, 5/5 L Foot plantar flexion Sensation: Impaired over RLE Coordination: Finger to nose intact, no dysmetria on L, intention tremor Gait: Deferred Labs: Recent Results (from the past 24 hour(s)) Basic Metabolic Panel (non-fasting) Result Value Ref Range Glucose Lvl 133 65 - 199 mg/dL BUN 28 (H) 10 - 20 mg/dL Creatinine 0.85 0.80 - 1.50 mg/dL Sodium 132 (L) 135 - 145 mmol/L Potassium 4.4 3.5 - 5.0 mmol/L Chloride 100 98 - 107 mmol/L CO2 21 (L) 22 - 31 mmol/L Anion Gap 11 5 - 15 mmol/L Calcium 7.9 (L) 8.5 - 10.5 mg/dL Estimated GFR 86 >=60 mL/min/1.73 m?? Hemogram Result Value Ref Range WBC 12.4 (H) 4.0 - 9.5 x10(3)/mcL RBC 4.18 (L) 4.58 - 5.54 x10(6)/mcL Hemoglobin 12.6 (L) 13.7 - 16.5 g/dL Hematocrit 37.7 (L) 40.5 - 48.5 % MCV 90.2 82.9 - 93.1 fL MCH 30.1 27.5 - 32.1 pg MCHC 33.4 32.0 - 35.7 g/dL Platelets 190 145 - 357 x10(3)/mcL RDWSD 49.4 (H) 36.0 - 45.0 fL RDWCV 15.0 (H) 11.4 - 13.8 % MPV 10.1 7.6 - 12.9 fL nRBC % Auto 0.0 % nRBC Abs Auto 0.000 0.000 - 0.000 x10(3)/mcL Differential, Automated Result Value Ref Range Neutrophils % 87.1 % Neutr Abs (ANC) 10.81 (H) 1.70 - 6.10 x10(3)/mcL Lymphocytes % 7.1 % Lymphocytes Abs 0.9 0.9 - 3.2 x10(3)/mcL Monocytes % 3.5 % Monocyte Abs 0.4 0.3 - 0.9 x10(3)/mcL Eosinophils % 0.0 % Eosinophils Abs 0.0 0.0 - 0.4 x10(3)/mcL Basophils % 0.2 % Basophils Abs 0.0 0.0 - 0.1 x10(3)/mcL Immature Gran % 2.10 % Beba Gran Abs 0.26 (H) 0.00 - 0.04 x10(3)/mcL Valproic Acid Level, Total Result Value Ref Range Valproic Lvl 65 mg/L Diagnostic Tests and Imaging: FINDINGS: Prior left frontal and left parietal craniotomy changes again seen. ?? Interval recurrence of metastases in the left frontal and medial left parietal resection site as noted previously with lesions that measure up to 2.7 cm and 3.8 cm respectively in the axial plane. Mild increased edema about the left parietal lobe lesion and decreased edema about the left frontal lobe lesion. ?? There is also been mild interval enlargement of 2 metastatic lesions in the posterior right frontal lobe that measure up to 2.2 and 1.1 cm in the axial plane, previously 1.4 and 0.5 cm. ?? There is also a new lesion in the anteromedial left temporal lobe that measures 0.4 cm. ?? Mild dural enhancement is noted in the left parietal and anterior left frontal regions, nonspecific. ?? Minimal [id number] midline shift with no uncal herniation or downward transtentorial herniation. ?? Stable small arachnoid cyst in the anterior aspect of the right middle fossa. ? IMPRESSION 1. 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 2. Mild interval enlargement of 2 posterior right frontal metastatic lesions and a new subcentimeter metastatic lesion in the anteromedial left temporal lobe. ?? Assessment: Ilir Laird is a 75 y.o. 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 Neurology is consulted for ongoing seizures. He has significant right sided weakness with decreased sensation over RLE. MRI showed metastatic reoccurence on the left with interval enlargement of 2 posterior right frontal metastatic lesions and new subcentimeter lesion in anteromedial left temproal love. Patient's history consistent with focal status aborted with ativan. Patient now on keppra 1.5g BIDand depakote 500mg BID. LFT's obtained were wnl and depakote level to be drawn prior to AM dose tomorrow. Patient is receiving decadron 6mg q6hr. If there is ongoing concern for seizures can obtain cVEEG monitoring. Recommendations: -Consider cVEEG if concern for ongoing seizures -C/W Keppra 1.5g BID -Continue Depakote 500mg BID -Obtain LFTs -C/W Decadron for edema - FU w Dr Mccoy in clinc ?? Consult service will continue to follow patient. X Recommendations are above, please page [phone] if further consultation required. ?? Marly Greer APRN 07/24/2021 Consult Neurology Pager [phone] Lyla Isaac RN - 07/24/2021 7:58 AM EDT Patient refusing placement of seizure pads. The reason pt gave for this refusal was I dont want them on. They make it harder to get out of bed ?? Nursing actions taken during this shift to address patient???s refusal included educate patient about importance of having seizure pads in place in event of seizure. Reinforced education regarding using call lozano prior to trying to transition to edge of bed to sit. ?? Plan to address patient???s refusal include nursing leadership notified. Primary team previously notified. Presley Guerin MD - 07/23/2021 3:16 PM EDT Hospital Medicine Attending Daily Progress Note Admit Date: 07/21/2021 ( Hospital Day 2 days ) Active Hospital Problems Diagnosis ??? Right sided weakness ??? Right hemiplegia Resolved Hospital Problems No resolved problems to display. ASSESSMENT: 75 yo M with newly diagnosed NSCLC with brain mets s/p debulking 06/30 who presented to [facility] ED from rehab with new RT sided twitching and RT hemiplegia. MRI brain with evidence of recurrence of brain mets and new lesions as well. He was admitted to hospital medicine and evaluated by neurology and neurosurgery and started on IV steroids. No indication for Mannitol since neuro exam stable, and not ideal candidate for surgery given extent of disease and potential morbidity. He was evaluated by radiation oncology and will be started on whole brain radiation today 07/22 for 14 planned sessions. He was also evaluated by oncology whowill follow up final path and discuss systemic therapy as outpatient based on response to steroids and radiation, but felt prognosis was in range of 2-3 months, to more than a year, depending on response to therapy. Will not be safe for home and will rehab in place as he is doing radiation to see if he can qualify for outpatient radiation. PLAN: # Metastatic NSCLC # Brain mets - rapidly progressive # Right sided hemiplegia, acute - 2/2 rapidly progressive mets # Swelling of brain, post-operative changes and 2/2 mets # Worsening acute seizure activity 2/2 brain mets - MRI brain yesterday showed interval metastatic recurrence in 2 prior LT surgical beds with shifting edema, mild interval enlargement of 2 posterior RT frontal metastatic lesions and new sub-cm metastatic lesion in LT temporal lobe - Case discussed with neurosurgery who recommended Decadron 10mg IV*1 followed by 6mg Q6H IV - S/P Keppra load 1gm IV x1 - will now continue home Keppra at 1500mg BID - Ativan 0.5mg PRN seizures - Seizure precautions - Fall risk; bedrest ordered - COMMUNICATION STUDIES PROFESSOR evaluation - Cont home sodium tablets - goal sbp 90-160 - Q2H neuro checks: - if acute twitching, would discuss with neurology immediately given concern for seizure and possible need for vEEG or Depakote load - if acute worsening of neuro exam, may then be candidate for Mannitol. Very poor candidate for surgery given aggressive nature of malignancy and number of lesions. Additionally concern about post-op swelling delaying radiation - Neurology, neurosurgery, oncology, radiation oncology and palliative input greatly appreciated - Will continue with IV steroids for now - Will start whole brain radiation therapy today for 14 planned sessions - anticipate completion near [facility] if pt otherwise medically ready for discharge and cleared for home; if requires rehab, anticipate would complete course here. - Given GOC as above, will engage PT/OT. ?? # Leukocytosis, chronic - stable - in setting of chronic steroid use - no sign of active infection ?? # CAD with h/o 4v CABG # HTN # HLD - Cont BB, and statin Diet Regular diet Discharge planning TBD pending clarification in GOC PT/OT/Speech Ordered COMMUNICATION STUDIES PROFESSOR. Will defer PT/OT pending clarification of GOC Lines/Access PIV Bolivar catheter No DVT/GI Prophylaxis Lovenox Vital/lab/FS frequency Vitals Q6H, Labs Qdaily Code status Do NOT Attempt CPR - Inpatient Family Daughters updated at bedside. PCP Myriam Riggins MD [phone] Attestation IPI Certification I certify that I am a [facility] credentialed attending provider with admitting privileges and that the patient meets or has met medical necessity to require an inpatient IPI level of care meeting a minimum of two midnights or is on the CMS inpatient only procedure list (status C) due to: concern for seizures Team (02/10 Coverage) 1714 Presley Guerin MD 07/23/2021 Subjective/24hr events: - Pt seen and examined at bedside - Admitted yesterday. Noted to be tearful - expressing understanding accurately of prognosis. Reports having mood swings on steroids before - had not noted issues with sleep, appetite or confusion. - Continued on seizure precautions - Awaiting COMMUNICATION STUDIES PROFESSOR eval as well as neurosurgery, radiation oncology and palliative care eval ROS: Patient denies fevers, chills, nausea/vomiting, diarrhea/constipation, sob/cp, dysuria. Vitals: Last value Range last 24 hrs Temperature Temp: 36.6 ??C (97.8 ??F) Temp: [36.5 ??C (97.7 ??F)-36.9 ??C (98.4 ??F)] Heart Rate Heart Rate: 78 Heart Rate: [78-79] Blood Pressure BP: 132/77 BP: (123-148)/(62-77) Respiratory Rate Resp: 19 Resp: [18-20] SpO2 SpO2: 90 % SpO2: [90 %-93 %] Intake/Output Summary (Last 24 hours) at 07/23/2021 1516 Last data filed at 07/23/2021 0400 Gross per 24 hour Intake 205 ml Output 750 ml Net -545 ml EXAM GEN: Lying in bed comfortably, NAD, on RA, breathing comfortably, speaking in full sentences, intermittently tearful HEENT: Anicteric, no conjunctival pallor, EOMI, PERRL CVS: RRR, S1+S2+no added sounds CHEST: CTABL, no added sounds ABD: Soft, ND/NT, BS+arya NEURO: AAO*3, no focal deficits. PSYCH: Normal mood and affect EXT: No edema, rigidity, tremors. - RUE 4/5 sales contracts analyst strength and 2/5 elbow/shoulder flexion/extension. - RLE 2/5 ankle and hip flexion/extension. 2/5 knee flexion, 5/5 knee extension. Decreased sensation RLE from thigh anteriorly to foot anteriorly. - LUE & LLE 07/14. SKIN: No rash or open wounds LABS: Reviewed in eDH. Remarkable for the following: Recent Labs 07/23/2145607/22/2145807/21/21 1050 WBC 13.3* 9.8* 15.4* HGB 12.7* 13.2* 15.1 HCT 37.7* 39.3* 44.7 PLATELET 203 217 266 Recent Labs 07/23/2145607/22/2145807/21/21 1050 NA 131* 132* 135 K 4.1 4.4 4.0 CL 98 100 99 CO2 20* 19* 21* BUN 27* 28* 28* CREATININE 0.82 0.93 0.96 GLUCOSE 133 154 116 CALCIUM 8.2* 8.3* 8.5 Recent Labs 07/23/2145607/22/21458 AST 13 17 ALT 22 28 ALKPHOS 83 100 BILITOT 0.4 0.3 BILIDIR 0.1 0.1 MICRO: No results for input(s): URINECULTURE in the last 720 hours. No results for input(s): BLOODCX in the last 720 hours. COVID 19 PCR 07/21/2021: not detected STUDIES: Results for orders placed or performed during the hospital encounter of 07/21/21 CT Head wo Contrast (Generic) (Exam End: 07/21/2021 11:08 AM) Impression Increased size of hyperdense metastases along both cerebral convexities. Increased left frontoparietal vasogenic edema, sulcal effacement and mass effect on the left lateral ventricle. Similar vasogenic edema surrounding the right frontal convexity lesions. Thank you for letting us participate in the care of this patient. If you are a health care provider and have any questions regarding this report, please contact the number below. For patients who have questions please contact the health lead caregiver that requested your imaging first. Electronically signed by: Debo Davies MD, [facility] ([phone]), at 07/21/2021 11:33 AM MRI Brain wwo Contrast (Generic) (Exam End: 07/21/2021 3:51 PM) Impression 1. 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 2. Mild interval enlargement of 2 posterior right frontal metastatic lesions and a new subcentimeter metastatic lesion in the anteromedial left temporal lobe. Thank you for letting us participate in the care of this patient. If you are a health care provider and have any questions regarding this report, please contact the number below. For patients who have questions please contact the health lead caregiver that requested your imaging first. Electronically signed by: Hemant Vanegas MD, [facility] ([phone]), at 07/21/2021 4:[address] Rad Onc Neuro Interp Only (Exam End: 07/22/2021 3:34 PM) Impression Expected findings. Thank you for letting us participate in the care of this patient. If you are a health care provider and have any questions regarding this report, please contact the number below. For patients who have questions please contact the health lead caregiver that requested your imaging first. Electronically signed by: Hemant Vanegas MD, [facility] ([phone]), at 07/22/2021 4:12 PM Medications: Scheduled Meds: ??? valproate sodium 1,000 mg Intravenous Once ??? atorvastatin 80 mg Oral QPM ??? levETIRAcetam 1,500 mg Oral BID ??? metoprolol tartrate 12.5 mg Oral BID ??? pantoprazole EC 40 mg Oral Daily ??? sodium chloride 1 g Oral TID ??? dexamethasone inj 6 mg Intravenous Q6H CORIN ??? sodium chloride 0.9 % (flush) 5 mL Intravenous BID ??? heparin (porcine) 5,000 Units Subcutaneous Q8H CORIN ??? divalproex EC 500 mg Oral BID Continuous Infusions: PRN Meds:.acetaminophen, LORazepam, sodium chloride 0.9 % (flush), lidocaine, melatonin Radha Gramajo OT - 07/23/2021 3:10 PM EDT Occupational Therapy Evaluation Patient profile: Per MD: Ilir Laird is a 75 y.o. 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 ? Neurology is consulted for ongoing seizures. He has significant right sided weakness with decreased sensation over RLE. MRI showed metastatic reoccurence on the left with interval enlargement of 2 posterior right frontal metastatic lesions and new subcentimeter lesion in anteromedial left temproal love. Patient's history consistent with focal status aborted with ativan. Patient now on keppra 1.5g BIDand depakote 500mg BID. LFT's obtained were wnl and depakote level to be drawn prior to AM dose tomorrow. Patient is receiving decadron 6mg q6hr. If there is ongoing concern for seizures can obtain cVEEG monitoring. Past Medical History: Diagnosis Date ??? CAD (coronary artery disease) s/p CABG 2018 ??? High cholesterol ??? Hypertension ??? Tobacco use Past Surgical History: Procedure Laterality Date ??? PRO EXCIS SUPRATENT BRAIN TUMOR Left 06/30/2021 @CRANI, FOR TUMOR, SUPRATENTORIAL, NOT MENINGIOMA (WRVU 30.83) performed by Darian Justice MD at [facility] MAIN OR ??? PRO MICROSURG TECHNIQUES, REQ OPER MICROSCOPE N/A 06/30/2021 MICROSCOPE USE (WRVU 3.46) performed by Darian Jutsice MD at [facility] MAIN OR ??? PRO STEREOTACTIC CPTR ASSTD PX CRANIAL, INTRADURAL N/A 06/30/2021 STEREOTACTIC COMPUTER-ASSTD NAVIGATIONAL CRANIAL INTRADURAL (WRVU 3.75) performed by Darian Justice MD at [facility] MAIN OR Social History: Patient typically lives alone in a house in [place], [place] with his dog Home Setup: Pt reports that he has a ramp to enter with bilateral rails. Pt has one level home with a basement. Pt reports that he sleeps on the sofa at times. Pt has a tub/shower combo with GB. DME: Walker, wheelchair Baseline ADL/Mobility: Prior to admission; Pt was at [facility] getting rehab s/p last hospital admission and then discharged home. Pt was home for one day prior to needing to return to hospital due to increased weakness in R hemibody. 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 Pt daughter Antonina, lives farther away, but is supportive. ?? Precautions/Special Considerations: Limited code, verbal order from Dr. Guerin; assume AAT, seizure precautions, at risk for falls, SBP 90-160, R sided weakness, R shoulder precautions ?? Subjective: I was doing so good until the seizure ?? Objective: Seen today for OT evaluation. ?? Cognitive Status/Behavior: ?? Behavior / Mood: alert and cooperative, mildly liable ?? Alert and oriented to: person, place, time and situation ?? Follows commands: 2 step and 100% of the time ?? Attention: WFL ?? Safety awareness: WFL ?? Vision & Perception: ?? WNL/WFL ?? corrective lenses real time analyst ?? Communication: WFL ?? Range of motion, strength, coordination: Hand dominance: right RUE 2-/5 distally and ~2+ elbow flexion/extension, 3-/5 proximally LUE WFL for MMT and AROM LE limitations: Did not assess Sling issued for RUE Educated Pt and RN on positioning/joint protection RUE; noted with edema in hand ?? Sensation: Intact sensation in RUE to light touch. ?? Activities of Daily Living: Self-feeding: Setup assistance Grooming: Setup assistance Dressing: Max A to hike pants pre and post toileting routine Bathing: Did not assess Toileting: Transfer: Recommend two person min A via stand step transfer to commode Hygiene: Anticipate min A for thoroughness?? Functional Mobility: Supine to sit: CGA for RLE towards R with HOB slightly elevated and use of bed rails Sit to stand: Min Ax2; sling applied for RUE Ambulation: Min-mod Ax2 with LUE VIDEO EDITOR and assistance for knee blocking of RLE. Constant cues for sequencing and occasional tactile cues for weight shifting ~5 ft to recliner chair Pt transferred to commode via stand step transfer towards the L with mod Ax1 and one person to assist with clothing management and then back to recliner chair with min Ax1 and mod Ax1 Stand to sit: CGAx2 with cues for hand placement to recliner and commode Sit to supine: Did not assess; Pt left up in recliner chair with all needs within reach; zainab vest applied Balance: Sitting balance: Good for static Standing balance: Poor with 2 person assistance ?? Vitals: VSS on RA Pain: 0/10 ?? Skin: Appeared intact ?? Education: patient have been educated on Role of occupational therapy/rehabilitation, Transfers, Assistive device/technique, ADL, Positioning, Safety, Functional Mobility, Balance, Recommendations and Discharge planning and verbalize understanding. ?? Patient status, treatment, and mobility recommendations discussed with nursing. ?? Assessment: Pt has been seen for occupational therapy evaluation. Ilir Laird presents with the following performance skill deficits and client factors: decreased activity tolerance, decreased flexibility/ROM, decreased strength, decreased sitting/standing balance, sensory deficits, decreased motor control, deconditioning, precautions/bracing and compromised mobility status. These performance deficits have led to activity limitations and participation restrictions in the following areas of occupation: dressing, bathing, grooming, toileting, transfers/mobility, home management, leisure and community mobility. Pt seen for OT evaluation in conjunction with PT services. Pt participated in transfer OOB, toileting and in transfer retraining. Pt noted with decreased use of R liliane-body and benefits fromassistance for all ADL and transfers. Pt is significantly below baseline at this time and will benefit from transfer to acute inpatient rehab facility to maximize function. Anticipate Pt will have a prolonged hospital stay for radiation and therefore will discuss having Pt participate in the LE[facility] program in addition to skilled OT services. Pt would benefit from further inpatient OT interventions to address performance deficits and maximize participation and independence with occupations of daily living. ?? Equipment needs at discharge: TBD ?? Anticipated Discharge Disposition (OT): acute rehabilitation facility ?? Other Recommendations: ?? Utilize upright chair position using bed features or transfer to recliner chair as appropriate with min Ax2 with FWW, ambulate as tolerated ?? Encourage participation in ADL's by providing set up A on tray table and physical assist only as needed ? Other Recommendations: No other consults recommended at this time ?? Goals: To be achieved by 08/08/21. 1. Pt will be min A for LB dressing routines with AE as needed at seated/standing levels 2. Pt will be min Ax1 for toileting routine at ambulatory level with LRAD 3. Pt will be min A for UB dressing routines 4. Pt will be independent for HEP for BUEs 5. Pt will be able to stand for 8 minutes to perform Plan: OT: Therapy Frequency (OT): 2-4 times/wk Planned OT interventions: Role of occupational therapy/rehabilitation, Transfers, Assistive device/technique, Adaptive equipment training, ADL, Exercise, Breathing exercises, Positioning, Safety, Precautions/Protocol, Functional Mobility, Activity pacing/Energy conservation, Home Program, Home Management, Balance, Recommendations, Family training and Discharge planning. Total Minutes, Occupational Therapy: 53 (1 mod eval (12:25-1:18)) OT Evaluation Code Rationale: ?? Diagnosis & Pertinent Co-Morbidities affecting Plan of Care: see PMHx ?? Occupational Profile & Client History: Brief Expanded Extensive x ?? Assessment of Occupational Performance: 1-3 performance deficits 3-5 performance deficits x 5 + performance deficits ?? Clinical Decision Making: Low Moderate High x Clinical decision making of moderate complexity using standardized patient assessment instrument andmeasurable assessment of functional outcome. Pager: [phone] Radha Gramajo OT 07/23/2021 Occupational Therapy Rehabilitation Department Glenis Campuzano MD - 07/23/2021 3:09 PM EDT [facility] Brief Progress Note Per chart review, patient started WBRT yesterday. Oncology following and planning for systemic therapy initiation once pathology and molecular studies return. Palliative engaged as well. As there are no plans for neurosurgical intervention at this time, we will sign off, but will be available for any further questions or concerns. We will next plan to see patient in clinic in 4-6 weeks(appt requested). Recommendations: -No acute neurosurgical intervention -Oncology/Radiation Oncology/palliative appropriately engaged and treating patient -Further steroid plan per Radiation Oncology -AED/seizure mgt per Neurology -F/u in NSGY clinic in 4-6 weeks (appt requested) -Remainder of care per primary team Glenis Campuzano MD 07/23/2021 3:09 PM Lyla Isaac RN - 07/23/2021 2:23 PM EDT OUTCOME EVALUATION NOTE: OUTCOME SUMMARY: Assumed care of patient. VSS on RA. Denies pain. AOx4. Pt tearful at times, stating that he is feeling overwhelmed. States that for support he has two daughters, one who lives 3 miles away and one who lives 1.5 hours away. Both daughters at bedside in afternoon. Pt appears to be in better spirits during and after visit. Q4H neuro-checks ordered. RLE/RUE strength improved from 8am to noon. No other changes. Bedrest order discontinued. PT/OT at bedside in afternoon. Able to get patient to commode and then up to chair as 2A. Seizures precautions maintained while OOB. Meds given per orders. See MAY. Valproic acid level drawn in morning, resulted 34mg/L. 1000mg valproate infusion ordered. Pt went for radiation therapy today. Tolerated well. Returned with no additional pain or symptoms. Pt using urinal independently at bedside. No BMs today. No acute issues. Will notify MD of changes. PLAN MOVING FORWARD: Radiation therapy. Emotional Support. Valproic Acid Draw 8am 07/24. INDIVIDUALIZED FALL PREVENTION INTERVENTIONS: Patient-specific fall risk factors per assessment: [current deficits]: Hemiplegia. Fall history. Medical equipment. Assistance [level of assistance required for transfers and ambulation]: 2A Supervision [direct monitoring required during toileting and ADLs]: Hands on Surveillance [continuous indirect monitoring]: Call lozano within reach. Purposeful rounding. Room near nursing station. Bed alarm on. Patient-specific fall prevention interventions for sensory deficits provided, if applicable: [X] No CPG GOAL OUTCOME EVALUATION: Michelle Mai PT - 07/23/2021 12:32 PM EDT Physical Therapy Evaluation Patient profile: Ilir Laird is a 75 y.o. 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 Presley Guerin MD with new (R) sided twitching and (R) hemiplegia. MRI brain with evidence of recurrence of brain mets and new lesions as well per hospital medicine team report. Patient with the following active problems: Active Non-Hospital Problems Diagnosis ??? Hyponatremia ??? Hyperglycemia ??? Non-small cell carcinoma of lung ??? Cigarette nicotine dependence with withdrawal ??? CAD (coronary artery disease), HLD ??? 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 PRO EXCIS SUPRATENT BRAIN TUMOR Left 06/30/2021 @[facility]ANI, FOR TUMOR, SUPRATENTORIAL, NOT MENINGIOMA (WRVU 30.83) performed by Darian Justice MD at [facility] MAIN OR ??? PRO MICROSURG TECHNIQUES, REQ OPER MICROSCOPE N/A 06/30/2021 MICROSCOPE USE (WRVU 3.46) performed by Darian Justice MD at [facility] MAIN OR ??? PRO STEREOTACTIC CPTR ASSTD PX CRANIAL, INTRADURAL N/A 06/30/2021 STEREOTACTIC COMPUTER-ASSTD NAVIGATIONAL CRANIAL INTRADURAL (WRVU 3.75) performed by Darian Justice MD at [facility] MAIN OR Social History: Ilir typically lives??alone in a house in [place], [place] with his dog. Pt reports thathe has a ramp to enter with bilateral rails. Pt has one level home with a basement. Pt reports that he sleeps on the sofa at times. Pt has a tub/shower combo with GB.?? DME:??Walker, wheelchair?? Baseline ADL/Mobility:??Prior to admission; Pt was at [facility] getting rehab s/p last hospital admission and then discharged home. Pt was home for one day prior to needing to return to hospital due toincreased weakness in R hemibody. 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 Pt daughter Antonina, lives farther away, but is supportive. Precautions/Special Considerations: Code Status: Limitations , High risk for skin breakdown, At riskto fall, Seizure precautions, Maintain HOB elevation per Dr. Guerin, Maintain SBP 90-160, (R) sided weakness Lines: Marcellus, Telemetry, PIV Activity Orders: assume AAT per Diet: Regular adult diet Mobility and Positioning Recommendations: ?? Pt. to utilize hand hold + 2 assist for transfers with nursing. ?? Please encourage up to chair for meal times as able. Subjective: ???I'd like to go into the bathroom if I can.?? Objective: Pt seen for evaluation today in collaboration with DOROTHY liang. Pain: none reported Vital Signs: within parameters on RA Mental Status: alert, oriented to person, place, and time, pleasant and motivated to participate Skin: unremarkable Musculoskeletal: ROM: (B)LEs stiff however grossly WFL Strength: functional weakness appreciated (R)LE with all mobility and with MMT Sensation: very minimally decreased to light touch (R) foot, improved from earlier this date per pt Bed Mobility: Supine to Sit: CGA with pt use of bed rail and with HOB raised ?? Performed with increased time working OOB to pt's (R) Sit to Supine: not tested 2/2 pt left resting in bedside chair following visit Transfers: Sit to Stand: Marimar x2 with hand hold assist (L) ?? Sling support to (R)UE ?? Performed with increased time and cues for sequencing Stand to Sit: CGAx2 with hand hold assist (L) ?? Performed with increased time and with verbal cues for sequencing / safety Gait: Distance: ~5 feet Device used: hand hold assist (L) + UE sling support (R) Level of assist: Min-ModA x2 Gait mechanics: decreased foot clearance (R), reduced single leg stance time (R), reduced rosemarie and step-length decreased (B) ?? Performed with increased time and with multimodal cues for sequencing and safety ?? Anterior knee block (R) throughout and though pt did bend slightly when in SLS (R) he did not fully buckle throughout Balance: Sitting: fair Standing: poor Education: patient has been educated on Bed mobility, Transfers, Positioning, Safety , Precautions/protocol, Gait , Role of therapy, Balance and Discharge planning and verbalizes, demonstrates and needs reinforcement. understanding. Patient status, treatment, and mobility recommendations discussed with nursing. Assessment: Ilir Laird was seen today for physical therapy evaluation. Ilir presents this date with reduced functional strength, impaired standing balance, reduced functional activity tolerance and altered gait mechanics. He did very well today in the setting of current impairments and was able to maintain his safety with assistance for progression OOB to commode and to chair. Pt's supportive daughters present for part of session and made plan to bring in sneakers and AFO (R) on next visit as able. He is remarkably motivated to progress his functional strength and activity tolerance as able and would make an excellent acute care rehab candidate when medically ready for hospital D/C. While in house, the pt would benefit from skilled therapy services while in the hospital to maximize functional abilities. Discharge Recommendations: When medically ready for hospital D/C, discharge recommendations: Inpatient rehabilitation facility,this patient would be an appropriate Acute Care rehab candidate Consult Recommendations: No other consults recommended at this time. Equipment needs: TBD at rehab Goals: To be achieved by 08/01/21: 1. Pt. to demonstrate knowledge of safety limitations and precautions and will appropriately requestassistance for functional activities and to mobilize. 2. Pt. to demonstrate understanding of appropriate seated LE exercises. 3. Pt to participate in standardized balance assessment. 4. Pt. to perform bed mobility independently from flat bed. 5. Pt. to perform transfers with modified independence using LRAD. 6. Pt. to ambulate >/=150 feet with modified independence using LRAD. 7. Family or caregiver to demonstrate understanding of therapeutic interventions to support the careof the patient. 8. Pt will tolerate progression towards upright with stable vital signs. Plan: Therapy Frequency (PT): (P) 2-4 times/wk for therapy including balance training, bed mobility training, gait training, home exercise program, motor coordination training, neuromuscular re-education, orthotic fitting and training, patient/family education, range of motion, stair training, strength ening, stretching, transfer training and wheelchair managment/propulsion training. Patient/family understand and agree with plan as stated above. 2017 PT Evaluation Code Rationale: ?? Diagnosis & Pertinent Co-Morbidities, personal factors, and present illness affecting Plan ofCare: (see above); Total # of Factors: 0 1-2 3+ X ?? Examination of body system impairments, functional limitations and behaviors, and/or participation restrictions. (Cardiovascular, Muscular, Nervous, Respiratory and Skeletal) Addressing 1-2 elements Addressing 3 + elements Addressing 4 + elements X ?? Clinical presentation: See assessment above. Stable/Uncomplicated Evolving/Fluctuating Symptoms Unstable/Unpredictable X ?? Clinical decision making of moderate complexity based on pt's functional performance as outlined in this evaluation. Time IN / OUT: 12:32 - 12:18 Total Minutes, Physical Therapy: (P) 46 Billing Code: (P) moderate complexity azul Michelle Mai, PT Pager: [phone] Physical Therapy Inpatient Rehabilitation Department Lyla Isaac RN - 07/23/2021 8:25 AM EDT Patient refusing placement of seizure pads. The reason pt gave for this refusal was they increasedmy medicine and I have had no problems since. I like to have the railing down because I like to be able to get my feet to the floor. I don't move without assistance, so it shouldn't be a problem. Nursing actions taken during this shift to address patient???s refusal included educate patient about importance of having seizure pads in place in event of seizure. Reinforced education regarding using call lozano prior to trying to transition to edge of bed to sit. Plan to address patient???s refusal include nursing leadership notified. Primary team notified. Beck Atkinson MD - 07/22/2021 3:12 PM EDT NEUROSURGERY PROGRESS NOTE ID: Ilir Laird is a 75 y.o. male with PMH tobacco use, CAD s/p CABG previously on ASA, who presented originally in June 2021 to OSH with 3-4 week history of initially RIGHT lower extremity weakness,inability to ambulate without assistance x1 week, and approximately 5 day history of RIGHT upper extremity weakness. ??MRI exhibited multiple bilateral intracranial lesions, the largest of which was inthe LEFT frontal lobe with surrounding vasogenic edema concerning for metastases given a R hilar lung mass as well. Now s/p left frontal/parietal craniotomies for tumor resections (FS = NSCLC) on 07/01/21. ?? Patient was discharged to [facility] 07/08 with referrals to oncology, radiation/oncology, neurology. Since had been feeling well until 07/13/21 at which time he experienced three episodes in succession ofRUE and RLE spasm/shaking and aphasia but retained consciousness. He was discharged on Decadron taper to complete this same day. Transfer center call from OSH for this, at which time patient increased back to 4mg Decadron q6h. Neurology consult at the time as well, increased Keppra to 1.5g BID. Patient was released from rehab yesterday and was at home, ambulating relatively well with a walker per patient and his 2 daughters. Since then for the past day or so RUE and RLE strength has been worseningto the point now that he relies on family to help him to the bathroom. HD# 1 POD # INTERVAL HX/ROS: ABY MEDICATIONS: Scheduled Meds: ??? atorvastatin 80 mg Oral QPM ??? levETIRAcetam 1,500 mg Oral BID ??? metoprolol tartrate 12.5 mg Oral BID ??? pantoprazole EC 40 mg Oral Daily ??? sodium chloride 1 g Oral TID ??? dexamethasone inj 6 mg Intravenous Q6H CORIN ??? sodium chloride 0.9 % (flush) 5 mL Intravenous BID ??? heparin (porcine) 5,000 Units Subcutaneous Q8H CORIN ??? divalproex EC 500 mg Oral BID Continuous Infusions: PRN Meds: acetaminophen, LORazepam, sodium chloride 0.9 % (flush), lidocaine, melatonin EXAM: Vitals: Temp: [36.7 ??C (98 ??F)-36.7 ??C (98.1 ??F)] Heart Rate: [66-103] Resp: [13-20] BP: (117-163)/(62-89) SpO2: [91 %-96 %] Heart Rate from SpO2: [64 bpm-76 bpm] BMI: Weight: 79.4 kg (175 lb) (07/21/21 1039) BMI (Calculated): 26.61 BMI Classification: Over Weight I/O: I/O last 3 completed shifts: In: 55 [P.O.:50; I.V.:5] Out: 1290 [Urine:1290] *patient in rad onc exam from yesterday* GEN:NAD NEURO:AA+Ox3 Speech fluent and appropriate PERRL. EOMI. Visual sherwood full to confrontation. No facial asymmetry Tongue midline MOTOR: RUE:2/5 LUE:5/5 RLE: KE 5 else 2/5 LLE: 5/ No pronator drift LT sensation intact x 4 LABS: Recent Labs 07/22/21 0459 07/21/21 1050 WBC 9.8* 15.4* HGB 13.2* 15.1 PLATELET 217 266 Recent Labs 07/22/21 0459 07/21/21 1050 NA 132* 135 K 4.4 4.0 CL 100 99 CO2 19* 21* BUN 28* 28* CREATININE 0.93 0.96 No results for input(s): PT, INR in the last 72 hours. IMAGING: MRI Brain WWO: IMPRESSION 1. 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 2. Mild interval enlargement of 2 posterior right frontal metastatic lesions and a new subcentimeter metastatic lesion in the anteromedial left temporal lobe. Assessment: Ilir Laird is a 75 y.o. male right-handed with PMH tobacco use, CAD s/p CABG, who presented originally in June 2021 to OSH with 3-4 week history of initially right upper and lower extremity weakness,??MRI exhibited multiple bilateral intracranial lesions, as well as R hilar lung mass. Now s/p left frontal/parietal craniotomies for tumor resections (FS = NSCLC) on 07/01/21. ?? On exam, patient has marked increased weakness of the RUE and RLE. CTH showing short interval increase in size of known metastatic lesions bilaterally, with new lesions as well as increased cerebral edema when compared with CTH from ~one week ago. This indicates likely aggressive nature of his metastatic disease and though repeat surgical debulking is an option, discussed that this is not a cure for his problem. He will also require multidisciplinary care with the help of Radiation Oncology and Medical Oncology for XRT/chemo/immunotherapy to best treat his disease. ? Plan/Recommendations: -MRI brain wwo complete -Close neurological observation, Q4HNC -Rec consults to Neurology (ASM/EEG), RadOnc, HemeOnc, Palliative care to help create multidisciplinary care team as well as admission to Hospital Medicine for coordination of care -BP control, keep SBP 90-160 -Rest of care per primary PLEASE PAGE [phone] WITH QUESTIONS Active Hospital Problems Diagnosis ??? Right sided weakness ??? Right hemiplegia Resolved Hospital Problems No resolved problems to display. Active Non-Hospital Problems Diagnosis ??? Hyponatremia ??? Hyperglycemia ??? Non-small cell carcinoma of lung ??? Cigarette nicotine dependence with withdrawal ??? CAD (coronary artery disease), HLD ??? Brain metastasis, Vasogenic Edema, Seizure secondary to vasogenic edema and brain mass, neurological deficits Beck Atkinson MD 07/22/2021 Aakash Bowser RN - 07/22/2021 2:19 PM EDT Patient had a BM and was transferred to Radiology Oncology at approximately 2:15pm. Jeana Mcgrath MSW - 07/22/2021 2:08 PM EDT Palliative Care Social Work Note GLAZIER STAINED GLASS attempted to meet with pt for him to complete his Advance Directive. Pt was with providers and then with transport to go for a procedure. GLAZIER STAINED GLASS met both of pt's daughters - Antonina and Sandro - outsideof the room. An Advance Directive form was left with pt's daughter's who are going to help pt complete the form. Both of pt's daughters are social workers and familiar with the document. Samara Fierro MD - 07/22/2021 9:34 AM EDT Hospital Medicine Attending Daily Progress Note Admit Date: 07/21/2021 ( Hospital Day 1 day ) Active Hospital Problems Diagnosis ??? Right sided weakness ??? Right hemiplegia Resolved Hospital Problems No resolved problems to display. ASSESSMENT: 75 yo M with newly diagnosed NSCLC with brain mets s/p debulking 06/30 who presented to [facility] ED from rehab with new RT sided twitching and RT hemiplegia. MRI brain with evidence of recurrence of brain mets and new lesions as well. He was admitted to hospital medicine and evaluated by neurology and neurosurgery and started on IV steroids. No indication for Mannitol since neuro exam stable, and not ideal candidate for surgery given extent of disease and potential morbidity. He was evaluated by radiation oncology and will be started on whole brain radiation today 07/22 for 14 planned sessions. He was also evaluated by oncology whowill follow up final path and discuss systemic therapy as outpatient based on response to steroids and radiation, but felt prognosis was in range of 2-3 months, to more than a year, depending on response to therapy. Palliative care consulted as well for assistance with clarification of goals of care and family support. Pt transitioned to DNR/DNI per their discussion with pt and daughters at bedside. Prolonged care [id number] 25 mins: 11:35-12pm in room with pt, daughters, palliative care. Prolonged care [id number] 45mins: 10:15-11am: coordinating with neurology, neurosurgery, oncology, radiation oncology and palliative care as well as primary RN. PLAN: # Metastatic NSCLC # Brain mets - rapidly progressive # Right sided hemiplegia, acute - 2/2 rapidly progressive mets # Swelling of brain, post-operative changes and 2/2 mets # Worsening acute seizure activity 2/2 brain mets - MRI brain yesterday showed interval metastatic recurrence in 2 prior LT surgical beds with shifting edema, mild interval enlargement of 2 posterior RT frontal metastatic lesions and new sub-cm metastatic lesion in LT temporal lobe - Case discussed with neurosurgery who recommended Decadron 10mg IV*1 followed by 6mg Q6H IV - S/P Keppra load 1gm IV x1 - will now continue home Keppra at 1500mg BID - Ativan 0.5mg PRN seizures - Seizure precautions - Fall risk; bedrest ordered - COMMUNICATION STUDIES PROFESSOR evaluation - Cont home sodium tablets - goal sbp 90-160 - Q2H neuro checks: - if acute twitching, would discuss with neurology immediately given concern for seizure and possible need for vEEG or Depakote load - if acute worsening of neuro exam, may then be candidate for Mannitol. Very poor candidate for surgery given aggressive nature of malignancy and number of lesions. Additionally concern about post-op swelling delaying radiation - Neurology, neurosurgery, oncology, radiation oncology and palliative input greatly appreciated - Will continue with IV steroids for now - Will start whole brain radiation therapy today for 14 planned sessions - anticipate completion near [facility] if pt otherwise medically ready for discharge and cleared for home; if requires rehab, anticipate would complete course here. - Given GOC as above, will engage PT/OT. ?? # Leukocytosis, chronic - stable - in setting of chronic steroid use - no sign of active infection ?? # CAD with h/o 4v CABG # HTN # HLD - Cont BB, and statin Diet Regular diet Discharge planning TBD pending clarification in GOC PT/OT/Speech Ordered COMMUNICATION STUDIES PROFESSOR. Will defer PT/OT pending clarification of GOC Lines/Access PIV Bolivar catheter No DVT/GI Prophylaxis Lovenox Vital/lab/FS frequency Vitals Q6H, Labs Qdaily Code status Attempt Cardiopulmonary Resuscitation - Inpatient Family Daughters updated at bedside. PCP Myriam Riggins MD [phone] Attestation IPI Certification I certify that I am a [facility] credentialed attending provider with admitting privileges and that the patient meets or has met medical necessity to require an inpatient IPI level of care meeting a minimum of two midnights or is on the [facility] inpatient only procedure list (status C) due to: concern for seizures Team (02/10 Coverage) [id number] Samara Fierro MD 07/22/2021 Subjective/24hr events: - Pt seen and examined at bedside - Admitted yesterday. Noted to be tearful - expressing understanding accurately of prognosis. Reports having mood swings on steroids before - had not noted issues with sleep, appetite or confusion. - Continued on seizure precautions - Awaiting COMMUNICATION STUDIES PROFESSOR eval as well as neurosurgery, radiation oncology and palliative care eval ROS: Patient denies fevers, chills, nausea/vomiting, diarrhea/constipation, sob/cp, dysuria. Vitals: Last value Range last 24 hrs Temperature Temp: 36.7 ??C (98.1 ??F) Temp: [36.5 ??C (97.7 ??F)-36.7 ??C (98.1 ??F)] Heart Rate Heart Rate: 71 Heart Rate: [61-103] Blood Pressure BP: 125/74 BP: (113-150)/(57-111) Respiratory Rate Resp: 16 Resp: [12-22] SpO2 SpO2: 94 % SpO2: [91 %-96 %] Intake/Output Summary (Last 24 hours) at 07/22/2021 0934 Last data filed at 07/22/2021 0632 Gross per 24 hour Intake 55 ml Output 1290 ml Net -1235 ml EXAM GEN: Lying in bed comfortably, NAD, on RA, breathing comfortably, speaking in full sentences, intermittently tearful HEENT: Anicteric, no conjunctival pallor, EOMI, PERRL CVS: RRR, S1+S2+no added sounds CHEST: CTABL, no added sounds ABD: Soft, ND/NT, BS+arya NEURO: AAO*3, no focal deficits. PSYCH: Normal mood and affect EXT: No edema, rigidity, tremors. - RUE 4/5 sales contracts analyst strength and 2/5 elbow/shoulder flexion/extension. - RLE 2/5 ankle and hip flexion/extension. 2/5 knee flexion, 5/5 knee extension. Decreased sensation RLE from thigh anteriorly to foot anteriorly. - LUE & LLE 5/5. SKIN: No rash or open wounds LABS: Reviewed in eDH. Remarkable for the following: Recent Labs 07/22/2145807/21/21 1050 WBC 9.8* 15.4* HGB 13.2* 15.1 HCT 39.3* 44.7 PLATELET 217 266 Recent Labs 07/22/21 0459 07/21/21 1050 NA 132* 135 K 4.4 4.0 CL 100 99 CO2 19* 21* BUN 28* 28* CREATININE 0.93 0.96 GLUCOSE 154 116 CALCIUM 8.3* 8.5 Recent Labs 07/22/21 045 AST 17 ALT 28 ALKPHOS 100 BILITOT 0.3 BILIDIR 0.1 MICRO: No results for input(s): URINECULTURE in the last 720 hours. No results for input(s): BLOODCX in the last 720 hours. COVID 19 PCR 07/21/2021: not detected STUDIES: Results for orders placed or performed during the hospital encounter of 07/21/21 CT Head wo Contrast (Generic) (Exam End: 07/21/2021 11:08 AM) Impression Increased size of hyperdense metastases along both cerebral convexities. Increased left frontoparietal vasogenic edema, sulcal effacement and mass effect on the left lateral ventricle. Similar vasogenic edema surrounding the right frontal convexity lesions. Thank you for letting us participate in the care of this patient. If you are a health care provider and have any questions regarding this report, please contact the number below. For patients who have questions please contact the health lead caregiver that requested your imaging first. Electronically signed by: Debo Davies MD, [facility] ([phone]), at 07/21/2021 11:33 AM MRI Brain wwo Contrast (Generic) (Exam End: 07/21/2021 3:51 PM) Impression 1. 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 2. Mild interval enlargement of 2 posterior right frontal metastatic lesions and a new subcentimeter metastatic lesion in the anteromedial left temporal lobe. Thank you for letting us participate in the care of this patient. If you are a health care provider and have any questions regarding this report, please contact the number below. For patients who have questions please contact the health lead caregiver that requested your imaging first. Electronically signed by: Hemant Vanegas MD, [facility] ([phone]), at 07/21/2021 4:04 PM Medications: Scheduled Meds: ??? atorvastatin 80 mg Oral QPM ??? levETIRAcetam 1,500 mg Oral BID ??? metoprolol tartrate 12.5 mg Oral BID ??? pantoprazole EC 40 mg Oral Daily ??? sodium chloride 1 g Oral TID ??? dexamethasone inj 6 mg Intravenous Q6H CORIN ??? sodium chloride 0.9 % (flush) 5 mL Intravenous BID ??? heparin (porcine) 5,000 Units Subcutaneous Q8H CORIN ??? divalproex EC 500 mg Oral BID Continuous Infusions: PRN Meds:.acetaminophen, LORazepam, sodium chloride 0.9 % (flush), lidocaine, melatonin Marcus Sullivan, RN - 07/22/2021 2:17 AM EDT Pt report gotten from William in the ED. Pt care assumed when pt arrived to [facility]. Set pt up in his room and made pt comfortable. All meds caught up on-see MAR for medication given later then due. Pt Amna&Ox4. No acute issues noted. Assessment as filed. Will continue to monitor and report any changes. *pt noted to be very teary @ [id number]. When approached by this nurse to inquire what was wrong, he stated if I am dying I would like to just go home. Comfort offered. He states his daughters will come inthe morning-he would like to discuss the POC and his wishes pf going home. This nurse will reach outto his team. Pls note we get daughter number on file when she comes in today. Pt wanted to call her, but was unable to locate her number in his file. Daughter took his cell phone with her to bring home and charge. Stephanie Fink PT - 07/21/2021 3:12 PM EDT 07/21/21 1508 Evaluation & Treatment Document Type ino ED contact Total Minutes, Physical Therapy 0 Comment, Session Not Performed Chart screen by Geriatric ED PT for need of further evaluation. Pt had returned from CT showing increased size of metastatic brain lesions and increased Frontoparietal vasogenic edema. Attempted to see pt for a screen. Pt and 2 daughters in the room. MDs came in to speakand evaluate pt.. Returned but pt was going for a MRI. Pt will likely benefit from a PT evaluation when deemed medically stable. Please place a PT order if needed. Thank you. documented in this encounter H&P Notes Flory Polo MD - 07/21/2021 4:20 PM EDT Medicine- Admission Note Patient info: Name: Ilir Laird : 1945 PCP: Myriam Riggins MD PCP phone number: [phone] Date of Admission: 07/21/2021 ( Hospital Day 0 days ) Service: Medicine Responsible Attending:Flory Polo MD Patient ID: 75 y.o. male with NSCLC recently diagnosed in June (admitted here at [facility]) with mets tothe brain s/p debulking craniotomy per neurosurgery who is presenting today with acute right hemiplegia. HPI: Ilir Laird is a 75y/o M with a PMH significant for CAD s/p 4vCABG around 2018 in [place], [place], tobacco use with a 58 pack/year history who presented to [facility] with progressive right-sided weakness found to have metastatic disease. He was admitted to [facility] in June, where he was found to have primary NSCLC. He underwent debulking craniotomy for brain mets on 06/30 by neurosurgery. He was discharged to rehab in [place] with referrals to oncology, radiation/oncology, neurology. Seizures x3 per neuro note on 07/13; recommended increasing Keppra to 1500mg BID and seeing patient in clinic for neuro evaluation. Patient was released from rehab yesterday and was at home, ambulating relatively well with a walker per patient and his 2 daughters, who were present during my interview. Patient fell asleep onthe couch around 8pm and when he woke up he was unable to move his right side and that his right side was completely numb. Called his daughter who came over and helped him get to the bathroom. She settled him back in, and he fell back asleep for another two hours. Fell off the couch and was found around 4am by one of his daughters. He was brought to [facility] ED. Patient started having uncontrollable twitching and shaking of right arm that was alleviated by 0.5mg IV Ativan x1 within one minute of it being given. Currently ROS completely negative except for inability to move the right side of his body. Denies PINEDA, dizziness, changes to or loss of vision. No weight changes. Able to eat and swallow without difficulty. In ED:CT head as below. MRI brain: interval recurrence in two prior left sided surgical beds with edema, new metastatic lesion left temporal lobe and interval enlargement of 2 posterior frontal metastatic lesions. Neurosurgery consulted as well as rad/onc per sign out. ROS: General: [-]fevers [-]chills [-]weight change [-]fatigue [-] night sweats HEENT: [-] sore throat CV: [-]chest pain [-]palpitations [-] lightheaded Pulm: [-]SOB [-]PATRICK [-]wheeze [-]cough [-]sputum production [-]hemoptysis GI: [-] abdominal pain [-]nausea [-] vomiting [-] constipation [-]diarrhea : [-]frequency [-]urgency [-] hesitancy [-] dribbling [-] incontinence] Endo: [-]heat/cold intolerance Heme: [-] bruising MSK: [-] new joint pain [-]stiffness [-]pain at rest [-] myalgias Skin: [-] rashes [-]pruritis [-] skin lesion Neuro: [+]numbness [+]weakness [-] parasthesias [-]headaches [-] dizziness Past Medical History: Diagnosis Date ??? CAD (coronary artery disease) s/p CABG 2018 ??? High cholesterol ??? Hypertension ??? Tobacco use Past Surgical History: Procedure Laterality Date ??? PRO EXCIS SUPRATENT BRAIN TUMOR Left 06/30/2021 @CRANI, FOR TUMOR, SUPRATENTORIAL, NOT MENINGIOMA (WRVU 30.83) performed by Darian Justice MD at [facility] MAIN OR ??? PRO MICROSURG TECHNIQUES, REQ OPER MICROSCOPE N/A 06/30/2021 MICROSCOPE USE (WRVU 3.46) performed by Darian Justice MD at [facility] MAIN OR ??? PRO STEREOTACTIC CPTR ASSTD PX CRANIAL, INTRADURAL N/A 06/30/2021 STEREOTACTIC COMPUTER-ASSTD NAVIGATIONAL CRANIAL INTRADURAL (WRVU 3.75) performed by Darian Justice MD at [facility] MAIN OR Outpatient Medications Marked as Taking for the 07/21/21 encounter (Hospital Encounter) Medication Sig Dispense Refill ??? dexamethasone (Decadron) 4 mg Tablet Take 4 mg by mouth every 6 hours. Picked up 07/20 ??? levETIRAcetam (KEPPRA) 1,000 mg Tablet Take 1 tablet by mouth 2 times daily. (Patient taking differently: Take 1,500 mg by mouth 2 times daily.) 60 tablet 12 ??? metoprolol tartrate (Lopressor) 25 mg Tablet Take 0.5 tablets by mouth 2 times daily. 180 tablet3 ??? pantoprazole EC (Protonix) 40 mg Tablet, Delayed Release (E.C.) Take 1 tablet by mouth daily. 90tablet 3 ??? sodium chloride 1 gram Tablet Take 1 tablet by mouth 3 times daily. ??? atorvastatin (Lipitor) 80 mg Tablet Take 80 mg by mouth every evening. Allergies Allergen Reactions ??? Cis Free Text Allergy Environmental. CIS - Allergic Rhinitis Family History Problem Relation Age of Onset ??? Heart Disease Mother ??? Cerebrovascular Accident Father Social History Socioeconomic History ??? Marital status: Spouse name: Not on file ??? Number of children: Not on file ??? Years of education: Not on file ??? Highest education level: Not on file Occupational History ??? Not on file Tobacco Use ??? Smoking status: Former Smoker Packs/day: 1.00 Years: 30.00 Pack years: 30.00 ??? Smokeless tobacco: Former User Quit date: 06/24/2021 ??? Tobacco comment: Quit 5 days ago Vaping Use ??? Vaping Use: Never used Substance and Sexual Activity ??? Alcohol use: Yes Alcohol/week: 3.0 standard drinks Types: 3 Cans of beer per week Comment: Not recently ??? Drug use: Never ??? Sexual activity: Not Currently Other Topics Concern ??? Not on file Social History Narrative ??? Not on file Social Determinants of Health Financial Resource Strain: Not on file Food Insecurity: Not on file Transportation Needs: Not on file Physical Activity: Not on file Housing Stability: Not on file Physical exam: Last value Range last 24 hrs Temperature Temp: 36.5 ??C (97.7 ??F) Temp: [36.5 ??C (97.7 ??F)] Heart rate Heart Rate: 67 Heart Rate: [61-72] Blood pressure BP: 122/63 BP: (113-150)/(57-111) Respiratory rate Resp: 16 Resp: [12-22] SpO2 SpO2: 95 % SpO2: [94 %-96 %] Gen: Elderly appearing older than stated age, sitting up on gurney, with right arm shaking uncontrollably HEENT: PERRL, EOMI, MMM CV: Regular rate and rhythm, No murmurs Pulm: Normal respiratory effort, CTAB Abd: Soft, non-tender/distended Ext: No pedal edema, 2+ peripheral pulses Skin: Warm, dry, no rashes, no ecchymosis, no lesions Neuro: CAOx3. 0/5 strength RUE and RLE. Positive babinski right foot. Diminished sensation right foot, leg and arm compared to left. Slight facial droop on right side and inability to raise right shoulder. Able to symmetrically raise eyebrows, close eyes and open them wide, blow out cheeks. Slight right sided tongue deviation and smile/frown asymmetrical with less movement on right side. Labs: Recent Labs 07/21/21 1050 WBC 15.4* HGB 15.1 HCT 44.7 PLATELET 266 Recent Labs 07/21/21 1050 NA 135 K 4.0 CL 99 CO2 21* BUN 28* CREATININE 0.96 GLUCOSE 116 CALCIUM 8.5 No results for input(s): PROT, ALBUMIN, BILITOT, BILIDIR, AST, ALT, ALKPHOS in the last 168 hours. Urine Analysis: No results found for: SPGRAVITYUA, PHUADIP, PROTEINUADIP, GLUCOSEU, KETONESUA, UROBILIUADIP, BLOODUADIP, NITRATEUA, LEUKOESTERUA, WBCUA, BILIRUBINUA Microbiology: n/a Pertinent Radiographic/Diagnostic Results: CT head IMPRESSION Increased size of hyperdense metastases along both cerebral convexities. Increased left frontoparietal vasogenic edema, sulcal effacement and mass effect on the left lateral ventricle. Similar vasogenic edema surrounding the right frontal convexity lesions. MRI brain IMPRESSION 1. 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 2. Mild interval enlargement of 2 posterior right frontal metastatic lesions and a new subcentimeter metastatic lesion in the anteromedial left temporal lobe. Assessment: 75 y.o. 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 This is a difficult situation since patient just underwent debulking by neurosurgery on 06/30 and the masses have already regrown. There is a significant amount of swelling in the brain which may preclude Ilir from radiation therapy. Neurosurgery was present during some of my interview and said that while they could take Ilir back to the OR, swelling from surgery would continue to delay radiation therapy. And, the cancer is rapidly progressing. Will consult, on cology, neurology, and palliative care in addition to neurosurgery and radiation/oncology who were already consulted by the ED. Per discussion with patient and daughters, Ilir's main focus is being comfortable. However, the daughters are not ready to say goodbye to their father and also stated that they want him to fight. Multidisciplinary GOC discussion(s) will need to take place to ensure best carefor Ilir and his unfortunate situation. Daughters want to be present for all GOC meetings and daily updates if they are not in the room during rounds. Plan: # Metastatic NSCLC # Brain mets - rapidly progressive # Right sided hemiplegia, acute - 2/2 rapidly progressive mets # Swelling of brain, post-operative changes and 2/2 mets # Worsening acute seizure activity 2/2 brain mets - Keppra load 1gm IV x1 - Decadron 10mg IV x1 - Decadron 6mg IV q6h - Cont home Keppra at 1500mg BID - Ativan 0.5mg PRN seizures - Seizure precautions - Fall risk; bedrest ordered - COMMUNICATION STUDIES PROFESSOR evaluation - Cont home sodium tablets - Neurosurgery may want to start Mannitol to reduce brain swelling but will defer to them once all necessary labs result - Neurosurgery may offer another surgery for debulking, recognizing that it's not curative and that post-op swelling delays radiation therapy. Will need multidisciplinary approach to best option(s) - Consults to neurosurgery, radiation/oncology, oncology, neurology and palliative care placed - Patient recognizes time is short, but understandably, patient and family also want to fight if possible while also keeping Ilir comfortable. - Continued multidisciplinary GOC discussions. - May benefit from PT/OT depending on what GOC are. Will defer for now. # Leukocytosis, chronic - in setting of chronic steroid use - no sign of active infection # CAD with h/o 4v CABG # HTN # HLD - Cont BB, and statin #Other - DVT ppx: Lovenox sq - GI PPx: PPI - Diet: Regular - Access: PIV - Consults: - Dispo: TBD Code: Attempt Cardiopulmonary Resuscitation - Inpatient I certify, as the attending physician, that this patient meets IPI inpatient criteria and will require more than 2 midnights of hospital level service for: acute right sided hemiplegia 2/2 brain mets Flory Polo MD [place] [id number] documented in this encounter ED Notes Basil Perez RN - 07/21/2021 7:02 PM EDT Report given to william MORFIN Basil Perez RN - 07/21/2021 3:10 PM EDT Pt to MRI via ED cot at this time Basil Perez RN - 07/21/2021 2:52 PM EDT Pt updated on poc, MRI form filled out Edgardo Wilcox RN - 07/21/2021 12:17 PM EDT ED Geriatric Resource Nurse Consult Note [place] screen: Positive Abuse screen: Negative 4AT: Negative ISAR: Positive Mini-Cog: Negative Others at home: Alone Current Living Arrangements: Home- one level handicap accessible Stairs: No- ramp to enter Assistive devices: Walker at baseline but wheelchair for past week. Social & Family Supports: Family- 2 daughters- one local Personal Care: Needs Assistance- for past week, independent at baseline Driving: Done by other- for past week Housework/Cleaning: Unable- Done by other- daughter Food Insecurity: None- Daughter and friends cooking for him Lifeline: Unknown Recommendations and Referrals: PT assessment once medically cleared Basil Perez RN - 07/21/2021 11:03 AM EDT Pt to CT on ED cart at this time Basil Perez RN - 07/21/2021 10:49 AM EDT Blood sugar @ 106 Geovanny Vaughan MD - 07/21/2021 10:42 AM EDT ED Resident Note HPI: Ilir Laird is a 75 y.o. male with history of non-small cell lung cancer and known brain metastaseswho presents to the Emergency Department coarsening right- sided weakness of three days duration. Patient had cardiac to [facility] three weeks ago for mass resection and has been in a rehab facility since then. He was started on steroids for postoperative swelling he states that three days ago he began to have almost total inability to move the right arm and right leg and he feels like the steroids are responsible for it. He has MRI scheduled for today. He denies headache, blurry vision, chest pain, shortness of breath, abdominal pain, rash. Discussed with: Patient Did you discuss: 1. Resuscitation goals No 2. Expectations/Fears No Did your conversation change the patient's disposition? No Pt was seen under the supervision of an attending physician. Review of Systems Pertinent positives and negatives are included in the HPI, otherwise at least ten systems were reviewed and negative. Past Medical and Surgical Histories, Social History, Medications, Allergies were reviewed in the chart. Vitals: ED Triage Vitals [07/21/21 1039] BP: 150/72 Heart Rate: 65 Resp: 16 Temp: 36.5 ??C (97.7 ??F) Temp src: Oral SpO2: 96 % O2 Device: RA O2 Flow Rate (L/min): n/a Physical Exam Constitutional: Appearance: Normal appearance. HENT: Head: Comments: Previous surgical incision is clean and intact Eyes: Extraocular Movements: Extraocular movements intact. Conjunctiva/sclera: Conjunctivae normal. Cardiovascular: Rate and Rhythm: Normal rate and regular rhythm. Pulses: Normal pulses. Heart sounds: Normal heart sounds. Pulmonary: Effort: Pulmonary effort is normal. Breath sounds: Normal breath sounds. No wheezing. Abdominal: General: Abdomen is flat. Palpations: Abdomen is soft. Tenderness: There is no abdominal tenderness. Musculoskeletal: General: Normal range of motion. Skin: General: Skin is warm and dry. Capillary Refill: Capillary refill takes less than 2 seconds. Findings: No bruising. Neurological: Mental Status: He is alert. Motor: Weakness present. Comments: +1 strength of the right upper and right lower extremities. ED Course: I have reviewed labs and imaging, images and available reports, and they are significant for: CBC: mild leukocytosis that is likely reactive BNP: normal electrolytes in creatinine MRI Brain wwo Contrast (Generic) Final Result 1. 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 2. Mild interval enlargement of 2 posterior right frontal metastatic lesions and a new subcentimeter metastatic lesion in the anteromedial left temporal lobe. Thank you for letting us participate in the care of this patient. If you are a health care provider and have any questions regarding this report, please contact the number below. For patients who have questions please contact the health lead caregiver that requested your imaging first. Electronically signed by: Hemant Vanegas MD, [facility] ([phone]), at 07/21/2021 4:[address] Head wo Contrast (Generic) Final Result Increased size of hyperdense metastases along both cerebral convexities. Increased left frontoparietal vasogenic edema, sulcal effacement and mass effect on the left lateral ventricle. Similar vasogenic edema surrounding the right frontal convexity lesions. Thank you for letting us participate in the care of this patient. If you are a health care provider and have any questions regarding this report, please contact the number below. For patients who have questions please contact the health lead caregiver that requested your imaging first. Electronically signed by: Debo Davies MD, [facility] ([phone]), at 07/21/2021 11:33 AM Procedures Assessment and Plan: 75 y.o. male with metastatic lung cancer to the brain status post surgical resection here with new right-sided weakness. Initial CT read shows worsening size of his metastatic lesions of his brain withworsening base of genic edema I suspect that this is a likely cause for his new right-sided weaknessas it may be compressing adjacent structures. There is no sign of new acute stroke on CT. Neurosurgery was engaged to evaluate the patient and recommended starting dexamethasone. Radiation oncology wasengaged to discuss possibility of radiation therapy to reduce size of brain lesions for neurosurgeryrecommendations and they requested MRI prior to decision. Hospital medicine was engaged for admission I was called to the patient bedside to reevaluate him as he began to have spasms of the right upper extremity. These had previously occurred during his last admission and he had retained consciousness without other signs of domestic movement that could indicate seizure. Regardless, he was given 1/2 mgof Ativan and an additional milligrams of Keppra and neurosurgery was made aware. At this time, neurology was paged to evaluate the patient's new right upper extremity movements and possibility of seizure. The recommendations are pending at the time of admission. He remained otherwise vitally stable while in the ED without other new neurologic deficits other than what was described above. He has no laboratory abnormalities that could signal other acute illness or injury. Patient admitted to hospital medicine The visit findings, diagnosis, and care plan were discussed with the patient. Geovanny Vaughan MD Resident 07/21/211907 Associated attestation - Héctor Cuellar MD - 07/21/2021 7:40 PM EDT ED ATTENDING ATTESTATION NOTE The patient was seen in conjunction with the resident physician. I have independently performed the du portions of the history and physical exam. I have reviewed the nursing notes, vital signs, and all diagnostic studies personally including labs, imaging studies and EKGs. I have discussed the details of the case with the resident and agree with the assessment and plan as described in the resident note unless noted otherwise. documented in this encounter Miscellaneous Notes Care Management Discharge - Marilu Leon RN - 08/12/2021 2:01 PM EDT CARE MANAGEMENT FINAL DISCHARGE NOTE Chart reviewed, care reviewed with primary team and at interdisciplinary rounds. Patient is medically ready for discharge to Rehab. Needs for Transition of Care: Plan for discharge is: Acute Rehab Outpatient Agency/Support Group Needs: None Agency Referrals & Follow-up Care: Contact information for follow-up [facility] Admissions - [address] [address] Transportation: ambulance *If unable to safely transfer into daughter's car family or friend will provide *Kishore Perez Wheelchair van/Ambulance? No Functional status prior to admission: Independent, Assistive Equipment Home Environment: Others in the home: alone. Current Living Arrangements: home/apartment/condo. Accessibility Concerns:House 2 ramp. Current Functional Ability: Assistive Person and Equipment *2 assist FWW DME used at home: walker - rolling, cane - straight, wheelchair - manual DME Needed at Discharge: TBD at rehab Patient is insured through: Primary Insurance: [employer] Payor: [employer] / Plan: [employer] / Product Type: *No Product type* / Secondary Insurance: N/A Prescription Coverage: Yes This plan was formulated with input from patient, daughter Ana and team. All are in agreement with plan. Marilu Leon RN, BSN Building Estimator - Medicine Office of care Management Office: Pager: [phone] Plan of Care - Elaine Solis RN - 08/12/2021 1:44 PM EDT OUTCOME EVALUATION NOTE: OUTCOME SUMMARY: Pt A&Ox4. RA. VSS. UOP > 30mL/hr via urinal. No BM. No complaints of pain. Up to chair x1. Heavy stand/pivot 2A w/ walker. Resting comfortably majority of day. PLAN MOVING FORWARD: D/c to rehab facility. Increase activity. Stable neuro checks. INDIVIDUALIZED FALL PREVENTION INTERVENTIONS: Patient-specific fall risk factors per assessment: [current deficits]: IV site, SpO2 cord Assistance [level of assistance required for transfers and ambulation]: 2A w/ walker stand/pivot Supervision [direct monitoring required during toileting and ADLs]: Hands-on Surveillance [continuous indirect monitoring]: Masimo monitoring, Q2 safety checks, hourly purposeful rounding, bed alarm set Patient-specific fall prevention interventions for sensory deficits provided, if applicable: [X] N/A CPG GOAL OUTCOME EVALUATION: Care Management - Marilu Leon RN - 08/12/2021 11:12 AM EDT OFFICE OF CARE MANAGEMENT PROGRESS NOTE LOS: Hospital Day 22 days Chart reviewed, care reviewed with primary team and at interdisciplinary rounds. Patient is medically ready for discharge to rehab. Functional status prior to admission: Independent, Assistive Equipment Home Environment: Others in the home: alone. Current Living Arrangements: home/apartment/condo. Accessibility Concerns: House 2 ramp. Current Functional Ability: Assistive Person and Equipment *2 assist FWW DME used at home: walker - rolling, cane - straight, wheelchair - manual DME Needed at Discharge: TBD at rehab Patient is insured through: Primary Insurance: [employer] Payor: [employer]IC[employer] / Plan: [employer] / Product Type: *No Product type* / Secondary Insurance: N/A Last Physical Therapy Recommendation: acute rehabilitation facility with to be determined Last Occupational Therapy Recommendation: acute rehabilitation facility with to be determined Plan for discharge is: Acute Rehab Outpatient Agency/Support Group Needs: None Agency Referrals: [facility] submitted for prior authorization, awaiting final confirmation of bed offer. Transportation: ambulance family or friend will provide Barriers to discharge: Discharge planning Psych: Adjustment to diagnosis/illness Plan going forward: Care Management will continue to follow and assist with discharge planning and coordination of care as indicated. Anticipated Date of Discharge: 08/15/2021 Marilu Leon RN, BSN Building Estimator - Medicine Office of care Management Office: Pager: [phone] Plan of Care - Dejah Flores RN - 08/12/2021 2:01 AM EDT OUTCOME EVALUATION NOTE: OUTCOME SUMMARY: [id number] A&O x4. VSS on RA. Neuro check q shift, unremarkable. No complaints of pain. Takes pills whole. 1.5 fluid restriction maintained. Pt is continent of B&B, urinal at bedside. Pt T&R indep in bed. Assist x2 with RW OOB, pt did not ambulate during shift. Bed alarm on. Purposeful rounding. Callbell within reach. PLAN MOVING FORWARD: DC planning INDIVIDUALIZED FALL PREVENTION INTERVENTIONS: Patient-specific fall risk factors per assessment: [current deficits]: Impaired mobility Assistance [level of assistance required for transfers and ambulation]: Assist x 2 with RW OOB Supervision [direct monitoring required during toileting and ADLs]: Hands on Surveillance [continuous indirect monitoring]: Purposeful rounding Patient-specific fall prevention interventions for sensory deficits provided, if applicable: [X] N/A Plan of Care - Yohana Wright RN - 08/11/2021 4:08 PM EDT OUTCOME EVALUATION NOTE: OUTCOME SUMMARY: Patient A&Ox4; Neuro checks completed- no acute changes; patient denies of any pain VSS on RA; physical assessment as documented Due medications given per MAR did [id number] and went off floor (w/ MD permission) with mobility tech Needs attended; will continue to monitor PLAN MOVING FORWARD: Neuro checks Qshift 1.5L Fluid restriction PT/OT D/C Rehab INDIVIDUALIZED FALL PREVENTION INTERVENTIONS: Patient-specific fall risk factors per assessment: [current deficits]: Right sided weakness; high risk for fall;generalized weakness Assistance [level of assistance required for transfers and ambulation]: heavy 2A w/ walker/gaitbelt Supervision [direct monitoring required during toileting and ADLs]: hands on Surveillance [continuous indirect monitoring]: purposeful hourly rounding; room near nurses station;bed alarm on; Patient-specific fall prevention interventions for sensory deficits provided, if applicable: [X] Yes CARE PLAN GOAL OUTCOME EVALUATION: Plan of Care - Ze Colbert RN - 08/11/2021 3:18 AM EDT OUTCOME EVALUATION NOTE: OUTCOME SUMMARY: Pt is A&OX4. VSS on RA. Pt denies chest pain, SOB, numbness, and tingling. No c/o pain. Scheduled medications administered per order (see MAR). Assessment completed (see flowsheet). Urinal within reach. Q shift neuro check unchanged from baseline. Safety maintained. No further events. Pt rested comfortably between care. PLAN MOVING FORWARD: PT/OT; palliative; neuro check- Qshift; d/c planning INDIVIDUALIZED FALL PREVENTION INTERVENTIONS: Patient-specific fall risk factors per assessment: [current deficits]: IV sites; generalized weakness;right extremity weakness, hospital env Assistance [level of assistance required for transfers and ambulation]: 2 assist with a walker Supervision [direct monitoring required during toileting and ADLs]: Hands on Surveillance [continuous indirect monitoring]: Purposeful rounding, safety checks, bed alarm on, call light within reach, bed in low position Patient-specific fall prevention interventions for sensory deficits provided, if applicable: [X] N/A CARE PLAN GOAL OUTCOME EVALUATION: Patient Refusal of Care - Ze Colbert RN - 08/10/2021 7:58 PM EDT Patient refusing to continuous masimo. The reason pt gave for this refusal was it bothers my fingerand the beeping hurts my finger . Nursing actions taken during this shift to address patient???s refusal included Education about importance of care Plan to address patient???s refusal include Nursing leadership notified Plan of Care - Amber Hoffman RN - 08/10/2021 1:15 PM EDT OUTCOME EVALUATION NOTE: OUTCOME SUMMARY: Pt A+Ox4. VSS, afebrile. Assessment as filed in flowsheets. Pt tolerating PO, denies any n/v. Pt denies having any pain. Q shift neuro check unchanged. Pt up with 1-2A w/ FWW. Plan for last radiation treatment this evening. High falls precautions and purposeful hourly rounding maintained. Call lozano within reach.. PLAN MOVING FORWARD: PT/OT Last radiation 08/10 D/C planning INDIVIDUALIZED FALL PREVENTION INTERVENTIONS: Patient-specific fall risk factors per assessment: [current deficits]: weakness, O2 monitor, IV sites Assistance [level of assistance required for transfers and ambulation]: 1-2A Supervision [direct monitoring required during toileting and ADLs]: hands on Surveillance [continuous indirect monitoring]: masimo, room near nurses station, purposeful hourly rounding Care Management - David Blackmon RN - 08/10/2021 11:02 AM EDT OFFICE OF CARE MANAGEMENT PROGRESS NOTE LOS: Hospital Day 20 days Chart reviewed, care reviewed with primary team and at interdisciplinary rounds. Patient continues to meet inpatient level of care related to: Reason for Hospitalization per H&P or ID: 75 y.o male with a PMHx of metastatic Non Small Cell Lung Cancer to the brain s/p debulking 06/30, CAD with h/o 4v CABG, HTN, HLD, who presented to [facility] with worsening right sided weakness and seizure activity following recent discharge from rehab. He was admitted to hospital medicine with an MRI significant for evidence of brain lesion recurrence and enlargement of metastatic lesions. Given the extensive nature of metastasis as well as rapid growth of previously debulked tumor, surgical intervention was deferred, IV steroids were started, and the patient was started on whole brain radiation per Radiation Oncology (first session 07/22, fourteen sessions total, anticipated end-date 08/10).??Platelet count has downtrend since 07/06, HIT was negative. Patientwas restarted on Lovenox 08/06. Platelets 114 (08/08). 24 hour events per team: No acute events overnight, tolerated radiation therapy, planning for last session today, worked withPT, daughter updated at bedside Functional status prior to admission: Independent, Assistive Equipment Home Environment: Others in the home: alone. Current Living Arrangements: home/apartment/condo. Accessibility Concerns: House 2 ramp. Current Functional Ability: Assistive Person and Equipment *2 assist FWW DME used at home: walker - rolling, cane - straight, wheelchair - manual DME Needed at Discharge: none Patient is insured through: Primary Insurance: [employer] Payor: [employer] / Plan: [employer]ICARE / Product Type: *No Product type* / Secondary Insurance: N/A Last Physical Therapy Recommendation: acute rehabilitation facility with to be determined Last Occupational Therapy Recommendation: acute rehabilitation facility with to be determined Plan for discharge is: Acute Rehab Outpatient Agency/Support Group Needs: None Agency Referrals: Current referrals placed to: [facility] - Accepted pending insurance auth [facility]- declined, dispo concerns [facility] - no response Transportation: ambulance family or friend will provide Barriers to discharge: Discharge planning Psych: Adjustment to diagnosis/illness Items to Consider for Discharge: Neurology appointment 08/16. ? Phone call CM Interventions: CM updates MD in the am on any dispo updates on the patient. [facility] - 09:45 AM We can clinically accept Mr. Laird pending auth, neg covid, and bed availability. I see that he has a f/u appointment with neurosurgery on 08/16...is there a chance this could be pushed out to a later date as he will very likely still be with us? Team is updated. At 10:30 AM CM into patients room to give him an update on [facility] tentative acceptance, need of COVID test and transportation. Ambulance transportation is medically necessary at discharge. I have discussed Medicare/Private Insurance reimbursement guidelines for ambulance transport. Patient verbalize understanding of their potential financial obligation and agree with ambulance transport. During IDRs CM is notified that besides the 24 hour events the patient had radiation treatment today. Referral update given. Patient is to have a COVID test tomorrow. At 10:50 AM CM notifies referrals with update on current medical status, Neurology appointment, COVID and that the patient might be medically ready for d/c on 08/11 CM will continue to monitor progress, follow for continuity of care and assist with discharge planning while patient is inpatient status on current unit. Anticipated Date of Discharge: 08/11/2021 David Blackmon RN Case Supervisor [employer] of Care Management Pager: [phone] Plan of Care - Ji Altmna RN - 08/10/2021 4:45 AM EDT OUTCOME EVALUATION NOTE: ?? OUTCOME SUMMARY: Pt a0x4. Vss on room air.??No c/o pain pt rested comfortably overnight. Awaiting final radiation session 08/10 bmx1. No acute changes ?? PLAN MOVING FORWARD: ?? Dc planning ?? INDIVIDUALIZED FALL PREVENTION INTERVENTIONS: ?? Patient-specific fall risk factors per assessment: [current deficits]:?General weakness ?? Assistance [level of assistance required for transfers and ambulation]:?1-2 ?? Supervision [direct monitoring required during toileting and ADLs]:?Hands on ?? Surveillance [continuous indirect monitoring]:?patient possessions in reach call light in reach masimo purposeful rounding. ?? Patient-specific fall prevention interventions for sensory deficits provided, if applicable:?[X] N/A ? CPG GOAL OUTCOME EVALUATION: Plan of Care - Amber Hoffman RN - 08/09/2021 2:50 PM EDT OUTCOME EVALUATION NOTE: OUTCOME SUMMARY: Pt A+Ox4. VSS, afebrile. Assessment as filed in flowsheets. Pt tolerating PO, denies any n/v. Pt denies having any pain. Pt up with 1-2A w/ FWW, up in recliner for lunch after working w/ PT.. pt to go for radiation therapy this afternoon, last one scheduled for 08/10. High falls precautions and purposeful hourly rounding maintained. Call lozano within reach.. PLAN MOVING FORWARD: PT/OT Radiation therapy Rehab/placement INDIVIDUALIZED FALL PREVENTION INTERVENTIONS: Patient-specific fall risk factors per assessment: [current deficits]: weakness, O2 monitor, IV sites Assistance [level of assistance required for transfers and ambulation]: 1-2A Supervision [direct monitoring required during toileting and ADLs]: hands on Surveillance [continuous indirect monitoring]: masimo, room near nurses station, purposeful hourly rounding Plan of Care - Ji Altman RN - 08/09/2021 5:46 AM EDT OUTCOME EVALUATION NOTE: ?? OUTCOME SUMMARY: Pt a0x4. Vss on room air. No c/o pain pt rested comfortably overnight. Awaiting final radiation session 08/10. No acute changes ?? PLAN MOVING FORWARD: ?? Dc planning ?? INDIVIDUALIZED FALL PREVENTION INTERVENTIONS: ?? Patient-specific fall risk factors per assessment: [current deficits]: General weakness ?? Assistance [level of assistance required for transfers and ambulation]: 1-2 ?? Supervision [direct monitoring required during toileting and ADLs]: Hands on ?? Surveillance [continuous indirect monitoring]: patient possessions in reach call light in reach masimo purposeful rounding. ?? Patient-specific fall prevention interventions for sensory deficits provided, if applicable: [X] N/A ? CPG GOAL OUTCOME EVALUATION: Plan of Care - Amber Hoffman RN - 08/08/2021 6:07 PM EDT OUTCOME EVALUATION NOTE: OUTCOME SUMMARY: Pt A+Ox4. VSS, afebrile. Assessment as filed in flowsheets. Q4 neuros maintained. Pt tolerating PO, denies any n/v. Pt denies having any pain. Pt stand/pivot w/ 1-2A to chair, refused to get up to chair for lunch/dinner when offered. High falls precautions and purposeful hourly rounding maintained. Call lozano within reach.. PLAN MOVING FORWARD: PT/OT Q4 neuro checks Radiation therapy D/C planning INDIVIDUALIZED FALL PREVENTION INTERVENTIONS: Patient-specific fall risk factors per assessment: [current deficits]: weakness, O2 monitor, IV sites Assistance [level of assistance required for transfers and ambulation]: 1-2A Supervision [direct monitoring required during toileting and ADLs]: hands on Surveillance [continuous indirect monitoring]: masimo, room near nurses station, purposeful hourly rounding Plan of Care - Ji Altman RN - 08/08/2021 4:39 AM EDT OUTCOME EVALUATION NOTE: OUTCOME SUMMARY: Pt a0x4. Vss on room air. No c/o pain pt rested comfortably overnight. Awaiting final radiation session 08/10 PLAN MOVING FORWARD: Dc planning INDIVIDUALIZED FALL PREVENTION INTERVENTIONS: Patient-specific fall risk factors per assessment: [current deficits]: General weakness Assistance [level of assistance required for transfers and ambulation]: 1-2 Supervision [direct monitoring required during toileting and ADLs]: Hands on Surveillance [continuous indirect monitoring]: patient possessions in reach call light in reach masimo purposeful rounding. Patient-specific fall prevention interventions for sensory deficits provided, if applicable: [X] N/A CPG GOAL OUTCOME EVALUATION: Plan of Care - Lizbet Bhardwaj RN - 08/07/2021 2:18 PM EDT OUTCOME EVALUATION NOTE: OUTCOME SUMMARY: VS stable, pt very pleasant, alert and oriented x4. Pt denies pain, chest pain, nausea this shift. Pt with good PO intake, voiding, continent of large BM. Pt quiet, visiting with family at bedside. PLAN MOVING FORWARD: Radiation therapy PT/OT Discharge planning INDIVIDUALIZED FALL PREVENTION INTERVENTIONS: Patient-specific fall risk factors per assessment: [current deficits]: Deconditioning, right sided weakness, hospital environment Assistance [level of assistance required for transfers and ambulation]: 1-2 assist Supervision [direct monitoring required during toileting and ADLs]: Eyes on Surveillance [continuous indirect monitoring]: Purposeful rounding, Masimo, room near unit station, bed alarm, call light within reach. Patient-specific fall prevention interventions for sensory deficits provided, if applicable: n/a CPG GOAL OUTCOME EVALUATION: Plan of Care - Amber Hoffman RN - 08/06/2021 5:05 PM EDT OUTCOME EVALUATION NOTE: OUTCOME SUMMARY: Pt A+Ox4. VSS, afebrile. Assessment as filed in flowsheets. Q4 neuro checks maintained and unchanged. Pt tolerating PO, denies any n/v. Pt denies having any pain. Pt ambulating with 1-2A w/ FWW, declined to get up to chair today. Flat/depressed affect/more tearful today which is said is d/t getting news about prognosis/timeline.. emotional support provided. High falls precautions and purposeful hourly rounding maintained. Call lozano within reach.. PLAN MOVING FORWARD: PT/OT Radiation therapy D/C planning INDIVIDUALIZED FALL PREVENTION INTERVENTIONS: Patient-specific fall risk factors per assessment: [current deficits]: weakness, O2 monitors, IV sites Assistance [level of assistance required for transfers and ambulation]: 1-2A Supervision [direct monitoring required during toileting and ADLs]: hands on Surveillance [continuous indirect monitoring]: masimo, room near nurses station, purposeful hourly rounding Plan of Care - Marcus Sullivan RN - 08/05/2021 11:04 AM EDT OUTCOME EVALUATION NOTE: OUTCOME SUMMARY: Pt A&Ox4. VS on RA. No c/o pain. Pt worked with PT. Neuro checks done per order. Pt is noted to get more tired towards the end of the day and is able to less ROM with Right side. Meds given per MAY. Assessment as filed. PLAN MOVING FORWARD: Radiation therapy Taper steroids Neuro checks q4h VS q6h INDIVIDUALIZED FALL PREVENTION INTERVENTIONS: Patient-specific fall risk factors per assessment: [current deficits]: IV site, R sided weakness Assistance [level of assistance required for transfers and ambulation]: 2 Assist w/ walker ?? Supervision [direct monitoring required during toileting and ADLs]: Hands on Surveillance [continuous indirect monitoring]: Spot checks on Masimo, room near nurses station, bed alarm on, call lozano within reach. Patient-specific fall prevention interventions for sensory deficits provided, if applicable: [X] N/A CPG GOAL OUTCOME EVALUATION: Care Management - Marilu Leon RN - 08/05/2021 9:25 AM EDT OFFICE OF CARE MANAGEMENT PROGRESS NOTE LOS: Hospital Day 15 days Chart reviewed, care reviewed with primary team and at interdisciplinary rounds. Patient continues to meet inpatient level of care related to: Radiation treatments until 08/10, pending rehab bed. Functional status prior to admission: Independent, Assistive Equipment Home Environment: Others in the home: alone. Current Living Arrangements: home/apartment/condo. Accessibility Concerns: House 2 ramp. Current Functional Ability: Assistive Person and Equipment *2 assist FWW DME used at home: walker - rolling, cane - straight, wheelchair - manual DME Needed at Discharge: TBD at rehab Patient is insured through: Primary Insurance: [employer] Payor: [employer]IC[employer] / Plan: [employer]ICARE / Product Type: *No Product type* / Secondary Insurance: N/A Last Physical Therapy Recommendation: acute rehabilitation facility with to be determined Last Occupational Therapy Recommendation: acute rehabilitation facility with to be determined Plan for discharge is: Acute Rehab Outpatient Agency/Support Group Needs: None Agency Referrals: [facility] [place] following patient for potential admission when radiation complete. Transportation: ambulance family or friend will provide Barriers to discharge: Discharge planning Psych: Adjustment to diagnosis/illness Plan going forward: Care Management will continue to follow and assist with discharge planning and coordination of care as indicated. Anticipated Date of Discharge: 08/10/2021 Marilu Leon RN, BSN Building Estimator - Medicine Office of care Management Office: Pager: [phone] Plan of Care - Dena Ponce RN - 08/04/2021 10:35 PM EDT OUTCOME EVALUATION NOTE: OUTCOME SUMMARY: Pt A&Ox4. VSS on RA. Pt denies pain. PO steroids given (see MAR). Neuro checks performed q4h (see Flowsheet). Assessment as filed. Safety maintained. Will continue to monitor. PLAN MOVING FORWARD: Radiation therapy Taper steroids Neuro checks q4h VS q6h INDIVIDUALIZED FALL PREVENTION INTERVENTIONS: Bed alarm set, wheels locked and bed in lowest position, side rails up x3, call lozano/personal items within reach, non-skid socks when OOB, purposeful hourly rounding, room near nurse's station Patient-specific fall risk factors per assessment: [current deficits]: IV site, R sided weakness Assistance [level of assistance required for transfers and ambulation]: 2 Assist w/ walker Supervision [direct monitoring required during toileting and ADLs]: Hands on Surveillance [continuous indirect monitoring]: Spot checks on Masimo Patient-specific fall prevention interventions for sensory deficits provided, if applicable: [X] Yes CPG GOAL OUTCOME EVALUATION: Plan of Care - Amber Hoffman RN - 08/04/2021 3:54 PM EDT OUTCOME EVALUATION NOTE: OUTCOME SUMMARY: Pt A+Ox4. VSS, afebrile. Assessment as documented in flowsheets. Q4 neuro checks maintained- see flowsheets. Pt tolerating PO, denies any n/v. Pt denies having any pain. Pt up with 1-2A to recliner. High falls precautions and purposeful hourly rounding maintained. Call lozano within reach.. PLAN MOVING FORWARD: PT/OT Q4 neuro checks Radiation D/C planning INDIVIDUALIZED FALL PREVENTION INTERVENTIONS: Patient-specific fall risk factors per assessment: [current deficits]: weakness, hx of falls, O2 monitor, IV sites Assistance [level of assistance required for transfers and ambulation]: 1A Supervision [direct monitoring required during toileting and ADLs]: masimo, room near nurses station, purposeful hourly rounding Consult Note - Jimena Christie APRN - 08/04/2021 12:05 AM EDT Neurosurgery Inpatient Consultation Note Date & Time of Consult: 08/04/2021 12:14 AM Referring Service: Hospital Medicine Referring Attending: Dr. Blanco Neurosurgery Attending: Dr. Justice Place of Consult: 142A ID: Name: Ilir Laird, 75 y.o. male Admission Date: 07/21/2021 CC: RIGHT lower extremity weakness HP [copy and pasted from my admisson H&P dated 06/28/21]: This is a 75 y.o. male with PMH of tobacco use [quit ~5 days ago they just don't taste good], CAD s/p CABG, on ASA 81mg daily [has not taken for a few days] who presented to the ED at [facility] with 3-4 week history of RIGHT sided weakness. Mr. 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 He didn't think much of it, thought it was from sitting in the truck all day. His RIGHT leg was initially the only extremity affected. His RIGHT leg weakness has progressively gotten worse, to the point where he cannot ambulate without assistance. His daughter, who is at the bedside, got him a walker last week to help him get around. A few days ago he started having RIGHT upper extremity weakness in addition to his lower extremity weakness. He saw a neurologist who ordered an MRI of his lumbar spine which was notable for multi-level degenerative disease. Today his daughters took him to the ED at [facility] where an MRI of his brain and cervical spine was done revealing multiple intracranial lesions concerning for metastases. He was discharged from the ED at [facility] and was told to drive to the ED here for further evaluation.We have been asked by the ED to evaluate him and provide recommendations. Mr. Laird is complaining of a productive cough that started yesterday. He also has had intermittent headaches for about the past 3-4 weeks for which he has been taking an occasional ibuprofen. He has RIGHT lower > upper extremity weakness. Denies nausea, vomiting, numbness, weakness, paresthesias, LOC, visual or auditory symptoms. Denies bowel or bladder symptoms. Interval History: 06/30/21 LEFT frontal and parietal craniotomy for resection of tumors, Dr. Justice 07/08/21 Discharged to [facility] 07/13/21 experienced three episodes of RIGHT upper and lower extremity shaking and aphasia with no loss of consciousness, Keppra increased to 1.5gms BID by Neurology. 07/20/21 Discharged to home from rehab 07/21/21 decrease in strength of RIGHT upper and lower extremity with twitching and shaking relieved by Ativan, readmitted 07/22/21 WBRT initiated 08/04/21 re-engaged by Hospital Medicine for concern of new weakness in RIGHT lower extremity. Nurse reports that patient has had DF/PF weakness 1-04/16 is his baseline, however at his last neuro check hereported that he could not DF/PF his RIGHT ankle. He currently has no complaints. PMH: Past Medical History: Diagnosis Date ??? CAD (coronary artery disease) s/p CABG 2018 ??? High cholesterol ??? Hypertension ??? Tobacco use Past Surgical History: Procedure Laterality Date ??? PRO EXCIS SUPRATENT BRAIN TUMOR Left 06/30/2021 @[facility], FOR TUMOR, SUPRATENTORIAL, NOT MENINGIOMA (WRVU 30.83) performed by Darian Justice MD at [facility] MAIN OR ??? PRO MICROSURG TECHNIQUES, REQ OPER MICROSCOPE N/A 06/30/2021 MICROSCOPE USE (WRVU 3.46) performed by Darian Justice MD at [facility] MAIN OR ??? PRO STEREOTACTIC CPTR ASSTD PX CRANIAL, INTRADURAL N/A 06/30/2021 STEREOTACTIC COMPUTER-ASSTD NAVIGATIONAL CRANIAL INTRADURAL (WRVU 3.75) performed by Darian Justice MD at [facility] MAIN OR Medications: No current facility-administered medications on file prior to encounter. Current Outpatient Medications on File Prior to Encounter Medication Sig Dispense Refill ??? dexamethasone (Decadron) 4 mg Tablet Take 4 mg by mouth every 6 hours. Picked up 07/20 ??? levETIRAcetam (KEPPRA) 1,000 mg Tablet Take 1 tablet by mouth 2 times daily. (Patient taking differently: Take 1,500 mg by mouth 2 times daily.) 60 tablet 12 ??? metoprolol tartrate (Lopressor) 25 mg Tablet Take 0.5 tablets by mouth 2 times daily. 180 tablet3 ??? pantoprazole EC (Protonix) 40 mg Tablet, Delayed Release (E.C.) Take 1 tablet by mouth daily. 90tablet 3 ??? sodium chloride 1 gram Tablet Take 1 tablet by mouth 3 times daily. ??? atorvastatin (Lipitor) 80 mg Tablet Take 80 mg by mouth every evening. ??? multivitamin (THERAGRAN) Tablet Take 1 tablet by mouth daily. ??? acetaminophen (Tylenol) 325 mg Tablet Take 3 tablets by mouth every 8 hours as needed for Pain or Fever. 30 tablet 1 Scheduled Meds: ??? melatonin 3 mg Oral Nightly ??? dexamethasone 4 mg Oral Q6H CORIN ??? memantine 5 mg Oral Daily Followed by ??? [START ON 08/06/2021] memantine 5 mg Oral BID ??? [START ON 08/13/2021] memantine 10 mg Oral QAM And ??? [START ON 08/13/2021] memantine 5 mg Oral QPM ??? [START ON 08/20/2021] memantine 10 mg Oral BID ??? calcium carbonate 500 mg Oral BID ??? atorvastatin 80 mg Oral QPM ??? levETIRAcetam 1,500 mg Oral BID ??? metoprolol tartrate 12.5 mg Oral BID ??? pantoprazole EC 40 mg Oral Daily ??? sodium chloride 1 g Oral TID ??? sodium chloride 0.9 % (flush) 5 mL Intravenous BID ??? heparin (porcine) 5,000 Units Subcutaneous Q8H CORIN ??? divalproex EC 500 mg Oral BID Continuous Infusions: PRN Meds:.carboxymethylcellulose, bisacodyL, acetaminophen, LORazepam, sodium chloride 0.9 % (flush), lidocaine Allergies: Allergies Allergen Reactions ??? Cis Free Text Allergy Environmental. CIS - Allergic Rhinitis Family Hx: Family History Problem Relation Age of Onset ??? Heart Disease Mother ??? Cerebrovascular Accident Father Social Hx: Social History Socioeconomic History ??? Marital status: Spouse name: Not on file ??? Number of children: Not on file ??? Years of education: Not on file ??? Highest education level: Not on file Occupational History ??? Not on file Tobacco Use ??? Smoking status: Former Smoker Packs/day: 1.00 Years: 30.00 Pack years: 30.00 ??? Smokeless tobacco: Former User Quit date: 06/24/2021 ??? Tobacco comment: Quit 5 days ago Vaping Use ??? Vaping Use: Never used Substance and Sexual Activity ??? Alcohol use: Yes Alcohol/week: 3.0 standard drinks Types: 3 Cans of beer per week Comment: Not recently ??? Drug use: Never ??? Sexual activity: Not Currently Other Topics Concern ??? Not on file Social History Narrative ??? Not on file Social Determinants of Health Financial Resource Strain: Not on file Food Insecurity: Not on file Transportation Needs: Not on file Physical Activity: Not on file Housing Stability: Not on file Vitals: Vitals: 08/03/21 1145 08/03/21 1521 08/03/21 2314 08/03/21 2317 BP: 128/69 141/80 119/74 119/74 BP Location (NBP): Left arm Right arm Left arm Patient Position: Lying Lying Lying Pulse: 71 65 66 Resp: 17 20 18 Temp: 37 ??C (98.6 ??F) 37.1 ??C (98.8 ??F) 36.6 ??C (97.8 ??F) TempSrc: Oral Oral Oral SpO2: 92% 93% 95% Weight: Height: Physical Exam: Lying on back in hospital bed with eyes closed. Arousable to voice. Oriented x3 PERRL No facial asymmetry Speech fluent and appropriate Motor: RUE 4/5 LUE 5/5 RLE HF/KE 4/5 DF/PF/EHL 3/5 LLE 5/5 Sensation intact to LT Labs: Recent Labs 08/01/21 0312 WBC 18.8* HGB 13.6* PLATELET 125* Recent Labs 08/03/21 1030 08/02/21 0439 08/01/21 0312 NA 131* 130* 128* K 4.7 4.7 4.5 CL 97* 97* 95* CO2 * 22 BUN 27* 27* 28* CREATININE 0.80 0.79* 0.97 No results for input(s): PT, INR in the last 72 hours. Assessment: This is a 75 y.o. male virgen-handed with PMH tobacco use, CAD s/p CABG, who presented??originally in June 2021??to OSH with 3-4 week history of initially right upper and lower extremity weakness,??MRI exhibited multiple bilateral intracranial lesions,??as well as??R hilar lung mass. Now s/p left fron beverly/parietal craniotomies for tumor resections (FS = NSCLC) on 07/01/21. We have been re-engaged this morning by hospital medicine for change in motor exam in RIGHT lower extremity. On my exam the patient has what appears to be his baseline movement, however Ilir does report that there was a point in time that he felt as though he could not move his ankle. He does have some DF/PF weakness, however it is 3/5 which is what his most recent baseline has been. He remains on Keppra 1.5 grams BID for seizure ppx. His decadron was recently tapered in the last 24hours from 6 Q6 to 4 Q6 and he is hyponatremic with a sodium of 131 yesterday morning. ?? Plan: -Continue Q4H neuro checks -Maintain normal serum sodium 135-145 -Consider Neurology consult for EEG for potential seizure causing this brief, transient change in his motor exam as reported by nursing -I do not think there is any utility in getting a CT scan at this time given his exam right now -If this occurs again, you can consider increasing his decadron back to 6mg Q6H. Would defer this management to Heme Onc and Rad Onc -There is NO role for Mannitol use in this patient at this time -Please re-consult us by paging [phone] should you have any other concerns or need further recommendations Plan of Care - Dena Ponce RN - 08/03/2021 9:38 PM EDT OUTCOME EVALUATION NOTE: OUTCOME SUMMARY: Pt A&Ox4. VSS on RA. Pt denied pain. Neuro checks performed q4h (see Flowsheet). Pt intermittently unable to move RLE. Pt denied numbness/tingling and pulse located w/ doppler. notified. Neurosurg assessed at bedside and did not feel head CT necessary as he was able to move it again. PO steroids given (see MAR). Fluid restriction maintained. Assessment as filed. Safety maintained. Will continue to monitor. PLAN MOVING FORWARD: Steroids Radiation therapy Neuro check q4h 1500 mL FR VS q6h [place] INDIVIDUALIZED FALL PREVENTION INTERVENTIONS: Bed alarm set, wheels locked and bed in lowest position, side rails up x3, call lozano/personal items within reach, non-skid socks when OOB, purposeful hourly rounding, room near nurse's station Patient-specific fall risk factors per assessment: [current deficits]: IV site, R sided weakness Assistance [level of assistance required for transfers and ambulation]: 2 Assist Supervision [direct monitoring required during toileting and ADLs]: Hands on Surveillance [continuous indirect monitoring]: Spot checks on Masimo Patient-specific fall prevention interventions for sensory deficits provided, if applicable: [X] Yes CPG GOAL OUTCOME EVALUATION: Patient Refusal of Care - Michelle Saha RN - 08/03/2021 11:35 AM EDT Patient refusing to wear Masimo. The reason pt gave for this refusal was It's annoying and I'm going to tear the thing off anyway. Nursing actions taken during this shift to address patient???s refusal included Education about importance of care Plan to address patient???s refusal include Modify plan of care to spot checks Care Management - Marilu Leon RN - 08/03/2021 11:26 AM EDT OFFICE OF CARE MANAGEMENT PROGRESS NOTE LOS: Hospital Day 13 days Chart reviewed, care reviewed with primary team and at interdisciplinary rounds. Patient continues to meet inpatient level of care related to: Radiation, scheduled to end on 08/10/2021 Functional status prior to admission: Independent, Assistive Equipment Home Environment: Others in the home: alone. Current Living Arrangements: home/apartment/condo. Accessibility Concerns: House 2 ramp. Current Functional Ability: Assistive Person and Equipment *2 assist FWW DME used at home: walker - rolling, cane - straight, wheelchair - manual DME Needed at Discharge: TBD at rehab Patient is insured through: Primary Insurance: [employer] MA[employer]ED [employer]ICARE Payor: P MANAGED MEDICARE / Plan: P MANAGED MEDICARE / Product Type: *No Product type* / Secondary Insurance: N/A Last Physical Therapy Recommendation: acute rehabilitation facility with to be determined Last Occupational Therapy Recommendation: acute rehabilitation facility with to be determined Plan for discharge is: Acute Rehab Outpatient Agency/Support Group Needs: None Agency Referrals: [facility]: declined, concern for transition to next level of care. [facility]: reviewing at this time. Patient has previously been to [facility]. Transportation: ambulance family or friend will provide Barriers to discharge: Discharge planning Psych: Adjustment to diagnosis/illness Plan going forward: Care Management will continue to follow and assist with discharge planning and coordination of care as indicated. Anticipated Date of Discharge: 08/10/2021 Marilu Leon RN, BSN Building Estimator - Medicine Office of care Management Office: Pager: [phone] Plan of Care - Dena Ponce RN - 08/02/2021 11:28 PM EDT OUTCOME EVALUATION NOTE: OUTCOME SUMMARY: Pt A&Ox4. VSS on RA. Pt denies pain. IV steroids given (see MAR). Scheduled Keppra and Depakote administered. Neuro checks performed q4h (see Flowsheet). 1500 mL FR maintained. One time dose of Ambien given for insomnia (see MAR). Assessment as filed. Safety maintained. Will continue to monitor. PLAN MOVING FORWARD: Radiation therapy IV steroids 1500 mL FR Neuro checks q4h VS q4h INDIVIDUALIZED FALL PREVENTION INTERVENTIONS: Bed alarm set, wheels locked and bed in lowest position, side rails up x3, call lozano/personal items within reach, non-skid socks when OOB, purposeful hourly rounding, room near nurse's station Patient-specific fall risk factors per assessment: [current deficits]: IV site, R sided weakness Assistance [level of assistance required for transfers and ambulation]: 2 Assist Supervision [direct monitoring required during toileting and ADLs]: Hands on Surveillance [continuous indirect monitoring]: Spot checks on Masimo Patient-specific fall prevention interventions for sensory deficits provided, if applicable: [X] Yes CPG GOAL OUTCOME EVALUATION: Plan of Care - Aakash Bowser RN - 08/01/2021 3:57 PM EDT OUTCOME EVALUATION NOTE: OUTCOME SUMMARY: Mr. Laird is an alert and oriented x4 75-year-old male who was admitted with right-sided weakness and right-sided hemiplegia. 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 Patient is currently getting scheduled whole brain radiation treatments up until 08/05/2021. Patient has been regaining strength in the right arm the the lower right leg since his admission. No complaints of pain nor discomfort. Vital signs have been stable. PLAN MOVING FORWARD: Continue with IV steroids Whole brain radiation until 08/05 INDIVIDUALIZED FALL PREVENTION INTERVENTIONS: Patient-specific fall risk factors per assessment: [current deficits]: Right- sided weakness Assistance [level of assistance required for transfers and ambulation]: 2 assist with a walker. Supervision [direct monitoring required during toileting and ADLs]: Hands on. Surveillance [continuous indirect monitoring]: Intentional rounding. Patient-specific fall prevention interventions for sensory deficits provided, if applicable: [X] Yes Care Management - Marilu Leon RN - 08/01/2021 9:27 AM EDT OFFICE OF CARE MANAGEMENT PROGRESS NOTE LOS: Hospital Day 11 days Chart reviewed, care reviewed with primary team and at interdisciplinary rounds. Patient continues to meet inpatient level of care related to: awaiting the end of XRT. Functional status prior to admission: Independent, Assistive Equipment Home Environment: Others in the home: alone. Current Living Arrangements: home/apartment/condo. Accessibility Concerns: House 2 ramp. Current Functional Ability: Assistive Person and Equipment *1-2 assist FWW DME used at home: walker - rolling, cane - straight, wheelchair - manual DME Needed at Discharge: TBD at rehab Patient is insured through: Primary Insurance: [employer] MANAGED MEDICARE Payor: [employer] MANAGED MEDICARE / Plan: [employer] MANAGED MEDICARE / Product Type: *No Product type* / Secondary Insurance: N/A Last Physical Therapy Recommendation[facility] Occupational Therapy Recommendation: acute rehabilitation facility with to be determined Plan for discharge is: Acute Rehab Outpatient Agency/Support Group Needs: None Agency Referrals: Based on discussions with the multi-disciplinary healthcare team, the patient would benefit from Acute Rehab level of care at discharge. I have met with the major account representative to: ?? discuss discharge planning needs. ?? provide the [facility], Office of Care Management letter from the Veterinary Practitioner pertaining to rehab referrals. ?? provide a letter describing our affiliations within the [facility] and educate about their right to choose where referrals are sent. ?? provide the CMS Star Quality Rating handout. ?? review the different levels of rehab including SNF, swing, and acute. ?? provide a list of facilities within their preferred geographic area. ?? request that they provide at least three choices for referral. They have requested referrals to: [facility] Acute Rehabilitation and Sub-Acute (Swing) Rehab Levels of Care [address] [place] [id number] [address] Nurse to Nurse report: Does patient have COVID vaccine card: No Note routed to a Life Sciences Manager who will communicate referrals to facilities and provide any required information. Transportation: ambulance family or friend will provide Barriers to discharge: Discharge planning Psych: Adjustment to diagnosis/illness Plan going forward: Care Management will continue to follow and assist with discharge planning and coordination of care as indicated. Anticipated Date of Discharge: 08/05/2021 Marilu Leon RN, BSN Building Estimator - Medicine Office of care Management Office: Pager: [phone] Plan of Care - Ana Franks RN - 08/01/2021 6:46 AM EDT OUTCOME EVALUATION NOTE: OUTCOME SUMMARY: Pt admitted 07/21/21 with R sided weakness and R hemiplegia. Found to have new onsetmetastatic brain cancer. Pt has been stable overnight. VSS. Neuro checks q 4 hours as ordered. R sided weakness continues, especially RLE. Denies pain. BM x 1 this morning. IV steroids continue. Will continue to monitor and will inform MD of any changes. PLAN MOVING FORWARD: Closely monitor VS, labs, assessments. Medicate as needed and as ordered. Inform MD of any changes. INDIVIDUALIZED FALL PREVENTION INTERVENTIONS: Patient-specific fall risk factors per assessment: [current deficits]: R sided weakness, deconditioning Assistance [level of assistance required for transfers and ambulation]: 2 assist for transfers, 2 assist and FWW for ambulation Supervision [direct monitoring required during toileting and ADLs]: eyes on if OOB for toileting, 1 assist for ADLs Surveillance [continuous indirect monitoring]: hourly rounding, bed alarm Patient-specific fall prevention interventions for sensory deficits provided, if applicable: [X] Yes, call lozano within easy reach, side rails up x 3, nonslip socks on if OOB, PT consult CPG GOAL OUTCOME EVALUATION: Plan of Care - Aakash Bowser RN - 07/31/2021 3:52 PM EDT OUTCOME EVALUATION NOTE: OUTCOME SUMMARY: Mr. Laird is a is a 75-year-old male who was admitted with brain metastases from lung cancer. Patient's MRI from 07/21 was found to show new larger lesion and new mets to the brain. Patient denies any pain nor discomfort at this time. He has regained some function of the right arm since his admission to the hospital. No changes in neuro exam. Vital signs have been stable. PLAN MOVING FORWARD: Continue with whole brain radiation. Continue with IV steroids. INDIVIDUALIZED FALL PREVENTION INTERVENTIONS: Patient-specific fall risk factors per assessment: [current deficits]: General weakness. Assistance [level of assistance required for transfers and ambulation]: 1-2 assist to the commode. Supervision [direct monitoring required during toileting and ADLs]: Hands on Surveillance [continuous indirect monitoring]: Intentional rounding. Bed alarm. Patient-specific fall prevention interventions for sensory deficits provided, if applicable: [X] N/A Plan of Care - Jessie Barrios RN - 07/30/2021 1:49 PM EDT OUTCOME EVALUATION NOTE: Patient will demonstrate optimal mobility, independence and safety this shift. OUTCOME SUMMARY: Patient out of bed to chair with PT, assist of two with gait belt and a walker. Patient demonstrating right sided weakness (see flow sheet). Right leg brace utilized during times of mobility. PLAN MOVING FORWARD: Encourage ROM exercises, provide mobility support. Collaborate with PT/OT. Notify MD of any adventitious findings. Document all assessments and interventions. INDIVIDUALIZED FALL PREVENTION INTERVENTIONS: Patient-specific fall risk factors per assessment: [current deficits]: Hx of CVA with right sided weakness. Assistance [level of assistance required for transfers and ambulation]: Assist two with a walker Supervision [direct monitoring required during toileting and ADLs]: Moderate assist with ADL's. Surveillance [continuous indirect monitoring]: N/A Patient-specific fall prevention interventions for sensory deficits provided, if applicable: [X] Yes CPG GOAL OUTCOME EVALUATION: Patient unable to demonstrate optimal mobility independence and safety this shift. Plan of Care - Sandra Gupta RN - 07/29/2021 3:56 PM EDT OUTCOME EVALUATION NOTE: OUTCOME SUMMARY: Patient alert and oriented x4, VSS on RA. Denying SOB, chest pain or dizziness. Right sided weaknesspresent, strength 3 in RUE, 2 in RLE. Assessment as filed, meds given per may. Q4 VS/Neuro exam. Patient independent with urinal use. Hopeful to work with PT/OT tomorrow as they could not fit him in today. PLAN MOVING FORWARD: D/C planning Radiation Monitor labs/VS Neuro exams INDIVIDUALIZED FALL PREVENTION INTERVENTIONS: Patient-specific fall risk factors per assessment: [current deficits]: Masimo, generalized weakness,R-side weakness, hospital environment Assistance [level of assistance required for transfers and ambulation]: 2 assist WW Supervision [direct monitoring required during toileting and ADLs]: Hands on Surveillance [continuous indirect monitoring]: Masimo, hourly rounding, call lozano in reach, bed alarm intact Patient-specific fall prevention interventions for sensory deficits provided, if applicable: [X] N/A CPG GOAL OUTCOME EVALUATION: Plan of Care - Sherie Richardson RN - 07/29/2021 1:30 AM EDT OUTCOME EVALUATION NOTE: OUTCOME SUMMARY: Alert and oriented x4 VSS on RA Right sided weakness increased as day progressed. Unable to move right arm/leg off bed for HS neuro checks Physical assessment as documented. Scheduled meds given per MAY. PLAN MOVING FORWARD: Discharge planning IV steroids Monitor labs, VS Neurological status Scheduled radiation INDIVIDUALIZED FALL PREVENTION INTERVENTIONS: Patient-specific fall risk factors per assessment: [current deficits]: Generalized weakness, hospital environment Assistance [level of assistance required for transfers and ambulation]: 2 assist with walker Supervision [direct monitoring required during toileting and ADLs]: Hands on Surveillance [continuous indirect monitoring]: Call lozano within reach, bed alarm on, room near nurses station, masimo on, hourly rounding utilized. Patient-specific fall prevention interventions for sensory deficits provided, if applicable: [X] Yes CPG GOAL OUTCOME EVALUATION: Plan of Care - Yohana Wright RN - 07/28/2021 4:35 PM EDT OUTCOME EVALUATION NOTE: OUTCOME SUMMARY: Patient A&Ox4; denies of any pain VSS on RA; Neuro checks completed-no acute changes Due medications given per MAY; physical assessment as documented Sent for scheduled radiation Patient was seen by PT and was up to chair today Needs attended; will continue to monitor PLAN MOVING FORWARD: Neuro checks [id number] Radiation PT D/C when medically ready INDIVIDUALIZED FALL PREVENTION INTERVENTIONS: Patient-specific fall risk factors per assessment: [current deficits]: Rt sided body weakness; high risk for fall; Assistance [level of assistance required for transfers and ambulation]: heavy 2A Supervision [direct monitoring required during toileting and ADLs]: hands on Surveillance [continuous indirect monitoring]: Masimo;purposeful hourly rounding;callbell within reach;bed alarm on; room near nurses station Patient-specific fall prevention interventions for sensory deficits provided, if applicable: [X] Yes CPG GOAL OUTCOME EVALUATION: Plan of Care - Dejah Flores RN - 07/28/2021 5:05 AM EDT OUTCOME EVALUATION NOTE: OUTCOME SUMMARY: [id number] A&O x4. VSS on RA. No complaints of pain. Neuro checks unremarkable, pt has weakness on R side.Takes pills whole. Pt is continent of B&B, ambulates assist x 2 with RW to bathroom. Pt uses R armsling and boot when ambulating. Bed alarm on. Purposeful rounding. Call lozano within reach. PLAN MOVING FORWARD: Inpt radiation DC planning INDIVIDUALIZED FALL PREVENTION INTERVENTIONS: Patient-specific fall risk factors per assessment: [current deficits]: Impaired mobility Assistance [level of assistance required for transfers and ambulation]: Assist x 2 with RW Supervision [direct monitoring required during toileting and ADLs]: Hands on Surveillance [continuous indirect monitoring]: Masimo, purposeful rounding Patient-specific fall prevention interventions for sensory deficits provided, if applicable: [X] N/A Plan of Care - Annette Jain RN - 07/27/2021 3:37 PM EDT OUTCOME EVALUATION NOTE: OUTCOME SUMMARY: A+OX4. VSS on RA. Assessments documented. Pt reports no pain, no SOB, and no numbness or tingling. No acute changes to q4hr neuro checks. Pt went for radiation today. PLAN MOVING FORWARD: Monitor. Safety. Radiation. INDIVIDUALIZED FALL PREVENTION INTERVENTIONS: Patient-specific fall risk factors per assessment: [current deficits]: IV. Weakness. Impaired. Assistance [level of assistance required for transfers and ambulation]: 2A Supervision [direct monitoring required during toileting and ADLs]: Hands on Surveillance [continuous indirect monitoring]: Monitor. Room near nursing station. Call lozano within reach. Bed alarm on. Patient-specific fall prevention interventions for sensory deficits provided, if applicable: [X] Yes CPG GOAL OUTCOME EVALUATION: Care Management - Maranda Treesa RN - 07/27/2021 2:13 PM EDT OFFICE OF CARE MANAGEMENT PROGRESS NOTE LOS: Hospital Day 6 days Chart reviewed, care reviewed with primary team and at interdisciplinary rounds. Patient continues to meet inpatient level of care related to: Seizures weakness Brain mets. Functional status prior to admission: Independent, Assistive Equipment Home Environment: Others in the home: alone. Current Living Arrangements: home/apartment/condo. Accessibility Concerns: House 2 ramp. Current Functional Ability: Independent, Assistive Equipment DME used at home: walker - rolling, cane - straight, wheelchair - manual DME Needed at Discharge: TBD Patient is insured through: Primary Insurance: [employer] MANAGED MEDICARE Payor: MVP MANAGED MEDICARE / Plan: MVP MANAGED MEDICARE / Product Type: *No Product type* / Secondary Insurance: N/A Last Physical Therapy Recommendation[facility] Last Occupational Therapy Recommendation: acute rehabilitation facility with Plan for discharge is: Home w/ Services Outpatient Agency/Support Group Needs: None Home Health Services: Physical Therapy, Registered Nurse, Occupational Therapy, Home Health Aide Agency Referrals: Referrals placed for [facility]. Transportation: family or friend will provide Barriers to discharge: Discharge planning Psych: Adjustment to diagnosis/illness Plan going forward: Patient will rehab in place while receiving radiation. Care Management will continue to follow and assist with discharge planning and coordination of care as indicated. Anticipated Date of Discharge: 08/05/2021 Maranda Teresa [facility] [phone] Plan of Care - Dejah Flores RN - 07/27/2021 2:39 AM EDT OUTCOME EVALUATION NOTE: OUTCOME SUMMARY: A&O x4. VSS on RA. No complaints of pain. Neuro checks unremarkable, pt has weakness on R side.Takes pills whole. Pt is continent of B&B, ambulates assist x 2 with RW to bathroom. Pt uses R armsling and boot when ambulating. Bed alarm on. Purposeful rounding. Call lozano within reach. PLAN MOVING FORWARD: Inpt radiation DC planning INDIVIDUALIZED FALL PREVENTION INTERVENTIONS: Patient-specific fall risk factors per assessment: [current deficits]: Impaired mobility Assistance [level of assistance required for transfers and ambulation]: Assist x 2 with RW Supervision [direct monitoring required during toileting and ADLs]: Hands on Surveillance [continuous indirect monitoring]: Masimo, purposeful rounding Patient-specific fall prevention interventions for sensory deficits provided, if applicable: [X] N/A Plan of Care - Marcus Sullivan RN - 07/26/2021 5:01 PM EDT OUTCOME EVALUATION NOTE: OUTCOME SUMMARY: Pt A&Ox4. VS on RA. No c/o pain. Daughter to bedside. Pt remains in good spirits. RAD-ONC appt. at 1645. Q4 neuro assessment preformed (see chart). Meds given per MAY, Assessment as filed. Will continue to monitor and report any changes. PLAN MOVING FORWARD: Radiation therapy;??steroid;??medication administration;??PT/OT;??d/c planning ?? INDIVIDUALIZED FALL PREVENTION INTERVENTIONS: Patient-specific fall risk factors per assessment: [current deficits]: ??R sided weakness and hemiplegia; right sided impaired mobility; hospital env; medical equipment; IV sites; fall history? Assistance [level of assistance required for transfers and ambulation]: Supervision [direct monitoring required during toileting and ADLs]: ??2 Assist ?? Surveillance [continuous indirect monitoring]: Masimo, bed alarm on, room near nurse's station, calllight within reach, safety checks, purposeful rounding Patient-specific fall prevention interventions for sensory deficits provided, if applicable: [X] N/A CPG GOAL OUTCOME EVALUATION: Plan of Care - Ze Colbert RN - 07/26/2021 4:11 AM EDT OUTCOME EVALUATION NOTE: ?? OUTCOME SUMMARY: ?? Pt is A&OX4. SpO2 desating to mid 80s while asleep. SpO2 back to >90% on 1 L NC. Other??VSS. Pt denies SOB, chest pain, numbness, and tingling. No c/o of pain. Q4 neuro assessment performed. Pt denies absence of sensation in extremities. RUE extremity strength 2/5 and RLE strength 2/5.??Other neuro signs unchanged from baseline. Scheduled medications administered per order (see MAR). Assessment completed (see flowsheet). Safetymaintained. No further events. Pt rested comfortably between care.? PLAN MOVING FORWARD: ?? Radiation therapy; steroid; medication administration; PT/OT; d/c planning ?? INDIVIDUALIZED FALL PREVENTION INTERVENTIONS: ?? Patient-specific fall risk factors per assessment: [current deficits]:?R sided weakness and hemiplegia; right sided impaired mobility; hospital env; medical equipment; IV sites; fall history? Assistance [level of assistance required for transfers and ambulation]:?2 Assist ?? Supervision [direct monitoring required during toileting and ADLs]:?Hands on ?? Surveillance [continuous indirect monitoring]:?Masimo, bed alarm on, room near nurse's station, call light within reach, safety checks, purposeful rounding ?? Patient-specific fall prevention interventions for sensory deficits provided, if applicable:?[X] No ? CPG GOAL OUTCOME EVALUATION:?? Plan of Care - Ibeth Glez RN - 07/25/2021 6:41 PM EDT OUTCOME EVALUATION NOTE: OUTCOME SUMMARY: Assumed care of patient. VSS on RA. Pt denies pain. Q4H neuro-checks unchanged. AOx4. Assessment completed, medications administered per MAY. Suppository given this AM with large results. Worked with PT/OT, OOB with 2 assist, right AFO, sneakers and gait belt. Tolerated OOB to recliner and OOB to BSC this shift. No acute events, patient currently at radiation. PLAN MOVING FORWARD: Radiation Q4H neuro checks and VS Emotional support Encourage activity PT/OT. INDIVIDUALIZED FALL PREVENTION INTERVENTIONS: Patient-specific fall risk factors per assessment: [current deficits]: Generalized weakness. Hemiplegia. Assistance [level of assistance required for transfers and ambulation]: 2A right AFO, sneakers, gaitbelt, walker Supervision [direct monitoring required during toileting and ADLs]: Hands on Surveillance [continuous indirect monitoring]: Call lozano within reach. Purposeful rounding. Room near nursing station. Bed alarm on. Patient-specific fall prevention interventions for sensory deficits provided, if applicable: [X] No CPG GOAL OUTCOME EVALUATION: Care Management - Maranda Teresa RN - 07/25/2021 4:04 PM EDT OFFICE OF CARE MANAGEMENT PROGRESS NOTE LOS: Hospital Day 4 days Chart reviewed, care reviewed with primary team and at interdisciplinary rounds. Patient continues to meet inpatient level of care related to: R sided weakness Seizures and Brain Mets Functional status prior to admission: Independent, Assistive Equipment Home Environment: Others in the home: alone. Current Living Arrangements: home/apartment/condo. Accessibility Concerns: House 2 ramp. Current Functional Ability: Independent, Assistive Equipment DME used at home: walker - rolling, cane - straight, wheelchair - manual DME Needed at Discharge: TBD Patient is insured through: Primary Insurance: [employer] MANAGED MEDICARE Payor: P MANAGED MEDICARE / Plan: [facility] MANAGED MEDICARE / Product Type: *No Product type* / Secondary Insurance: N/A Last Physical Therapy Recommendation[facility] Occupational Therapy Recommendation: acute rehabilitation facility with Plan for discharge is: Home w/ Services Outpatient Agency/Support Group Needs: None Agency Referrals: Patient accepted to [facility] Transportation: family or friend will provide Barriers to discharge: Discharge planning Psych: Adjustment to diagnosis/illness Plan going forward: Care Management will continue to follow and assist with discharge planning and coordination of care as indicated. ??? Monitor pt progress ??? Review recommendations from other providers ??? Make referrals as needed ??? Monitor for DME needs. Anticipated Date of Discharge: 07/29/2021 Maranda Teresa [facility] [phone] Plan of Care - Ze Colbert RN - 07/25/2021 4:03 AM EDT OUTCOME EVALUATION NOTE: ?? OUTCOME SUMMARY: ?? Pt is A&OX4. VSS on RA. Pt denies SOB, chest pain, numbness, and tingling. Pt refusing seizure pads despite education. Q4 neuro assessment performed. Pt denies absence of sensation in extremities. RUE extremity strength 3/5 and RLE strength 3/5. Other neuro signs unchanged from baseline. Scheduled medications administered per order (see MAR). Assessment completed (see flowsheet). Safetymaintained. No further events. Pt rested comfortably between care. ?? PLAN MOVING FORWARD: ?? Radiation therapy; steroid; medication administration; PT/OT; d/c planning ?? INDIVIDUALIZED FALL PREVENTION INTERVENTIONS: ?? Patient-specific fall risk factors per assessment: [current deficits]: R sided weakness and hemiplegia; right sided impaired mobility; hospital env; medical equipment; IV sites; fall history ?? Assistance [level of assistance required for transfers and ambulation]: 2 Assist ?? Supervision [direct monitoring required during toileting and ADLs]: Hands on ?? Surveillance [continuous indirect monitoring]: Masimo, bed alarm on, room near nurse's station, calllight within reach, safety checks, purposeful rounding ?? Patient-specific fall prevention interventions for sensory deficits provided, if applicable: [X] No ? CPG GOAL OUTCOME EVALUATION: Patient Refusal of Care - Ze Colbert RN - 07/24/2021 7:30 PM EDT Patient refusing to have seizure pads. The reason pt gave for this refusal was It obstructs my way out of bed. I do not want them. Nursing actions taken during this shift to address patient???s refusal included Education about importance of care and how the pads would protect patient in an event of a seizure. Educated patient on using the call light when getting out of the bed. Plan to address patient???s refusal include Nursing leadership notified. Plan of Care - Ze Colbert RN - 07/24/2021 4:40 AM EDT OUTCOME EVALUATION NOTE: OUTCOME SUMMARY: Pt is A&OX4. HR intermittently bradycardic in the 50s. Other VSS on RA. Pt denies SOB, chest pain, numbness, and tingling. Pt refusing seizure pads despite education. Q4 neuro assessment performed.Pt denies absence of sensation in extremities. RUE extremity strength 4/5 and RLE strength 3/4. Other neuro signs unchanged from baseline. Scheduled medications administered per order (see MAR). Assessment completed (see flowsheet). Pt using urinal at bedside to void. Safety maintained. No further events. Pt rested comfortably between care. PLAN MOVING FORWARD: Radiation therapy; medication administration; valproic lab draw at 8 am; d/c planning INDIVIDUALIZED FALL PREVENTION INTERVENTIONS: Patient-specific fall risk factors per assessment: [current deficits]: R sided weakness and hemiplegia; right sided impaired mobility; hospital env; medical equipment; IV sites; fall history Assistance [level of assistance required for transfers and ambulation]: 2 Assist Supervision [direct monitoring required during toileting and ADLs]: Hands on Surveillance [continuous indirect monitoring]: Masimo, bed alarm on, room near nurse's station, calllight within reach, safety checks, purposeful rounding Patient-specific fall prevention interventions for sensory deficits provided, if applicable: [X] No CPG GOAL OUTCOME EVALUATION: Patient Refusal of Care - Ze Colbert RN - 07/23/2021 7:31 PM EDT Patient refusing to seizures bed. The reason pt gave for this refusal was I do not need padding around my bed. It obstructs my way out of the bed. Nursing actions taken during this shift to address patient???s refusal included Education about importance of care and importance of having seizure pads in the event of a seizure. Plan to address patient???s refusal include Nursing leadership notified Consult Note - Marly Greer, ROLLER REPAIRER - 07/23/2021 7:51 AM EDT Images from the original note were not included. Neurology Inpatient Consult Note Patient name:Ilir Laird Date of :1945 Admit date: 07/21/2021 Attending: Dr. Chow CC: Seizures? ID:Ilir Laird is a 75 y.o. male with pmhx of Metastatic NSCLC to the brain s/p debulking, CAD, HLDwho presents to the ED for right sided weakness. Neurology is consulted for ongoing seizures. Interval events: - NAEO - Feeling stronger after 2 rounds of whole brain radiation- specifically in UE and LLE, - intermittently tearful but appropriate - no further seizures reported by pt or staff - VPA trough this AM 34 (started on 500mg BID yesterday- without loading dose) Past Medical History: Past Medical History: Diagnosis Date ??? CAD (coronary artery disease) s/p CABG 2018 ??? High cholesterol ??? Hypertension ??? Tobacco use Past Surgical History: Procedure Laterality Date ??? PRO EXCIS SUPRATENT BRAIN TUMOR Left 06/30/2021 @CRANI, FOR TUMOR, SUPRATENTORIAL, NOT MENINGIOMA (WRVU 30.83) performed by Darian Justice MD at [facility] MAIN OR ??? PRO MICROSURG TECHNIQUES, REQ OPER MICROSCOPE N/A 06/30/2021 MICROSCOPE USE (WRVU 3.46) performed by Darian Justice MD at [facility] MAIN OR ??? PRO STEREOTACTIC CPTR ASSTD PX CRANIAL, INTRADURAL N/A 06/30/2021 STEREOTACTIC COMPUTER-ASSTD NAVIGATIONAL CRANIAL INTRADURAL (WRVU 3.75) performed by Darian Justice MD at [facility] MAIN OR Medications: Scheduled Meds: ??? atorvastatin 80 mg Oral QPM ??? levETIRAcetam 1,500 mg Oral BID ??? metoprolol tartrate 12.5 mg Oral BID ??? pantoprazole EC 40 mg Oral Daily ??? sodium chloride 1 g Oral TID ??? dexamethasone inj 6 mg Intravenous Q6H CORIN ??? sodium chloride 0.9 % (flush) 5 mL Intravenous BID ??? heparin (porcine) 5,000 Units Subcutaneous Q8H CORIN ??? divalproex EC 500 mg Oral BID Continuous Infusions: PRN Meds:. Allergies: Allergies Allergen Reactions ??? Cis Free Text Allergy Environmental. CIS - Allergic Rhinitis Family history: Family History Problem Relation Age of Onset ??? Heart Disease Mother ??? Cerebrovascular Accident Father Social history: Social History Socioeconomic History ??? Marital status: Spouse name: Not on file ??? Number of children: Not on file ??? Years of education: Not on file ??? Highest education level: Not on file Occupational History ??? Not on file Tobacco Use ??? Smoking status: Former Smoker Packs/day: 1.00 Years: 30.00 Pack years: 30.00 ??? Smokeless tobacco: Former User Quit date: 06/24/2021 ??? Tobacco comment: Quit 5 days ago Vaping Use ??? Vaping Use: Never used Substance and Sexual Activity ??? Alcohol use: Yes Alcohol/week: 3.0 standard drinks Types: 3 Cans of beer per week Comment: Not recently ??? Drug use: Never ??? Sexual activity: Not Currently Other Topics Concern ??? Not on file Social History Narrative ??? Not on file Social Determinants of Health Financial Resource Strain: Not on file Food Insecurity: Not on file Transportation Needs: Not on file Physical Activity: Not on file Housing Stability: Not on file Physical Exam: Patient Vitals for the past 24 hrs: Temp Heart Rate From SP02 Pulse Resp BP SpO2 O2 Device 07/22/21 1044 -- 76 bpm -- 18 163/83 94 % -- 07/22/21 1300 -- -- -- -- -- -- RA 07/22/21 1851 36.7 ??C (98.1 ??F) 71 bpm -- 18 123/62 93 % RA 07/22/21 2141 36.8 ??C (98.3 ??F) -- 79 18 138/63 -- -- 07/23/21 0416 36.5 ??C (97.7 ??F) -- 78 20 148/68 93 % -- General: alert, NAD Ext: no edema, adequate pulses Neuro exam: MS: Awake, alert, oriented to person, place, year, month No dysarthria, language fluent, cooperative with neuro exam CN: Pupils R>L 4/3, EOMI Facial sensation intact No facial asymmetry Hearing intact to voice Palate elevates symmetrically, tongue protrudes midline SCM and trap strength intact Motor: Normal bulk and tone. Hand rolling intact. UE: 2/5 R, 5/5 L Arm abduction at shoulder 4/5 R, 5/5 L Elbow extension 3/5 R, 5/5 L Elbow flexion 4/5 R, 5/5 L Chief Innovation Officer LE: 2/5 R, 5/5 L Hip flexion 3/5 R, 5/5 L Knee extension 3/5 R, 5/5 L Knee flexion 2/5 R, 5/5 L Foot dorsiflexion 3/5 R, 5/5 L Foot plantar flexion Sensation: Impaired over RLE Coordination: Finger to nose intact, no dysmetria on L, intention tremor Gait: Deferred Labs: Recent Results (from the past 24 hour(s)) Basic Metabolic Panel (non-fasting) Result Value Ref Range Glucose Lvl 133 65 - 199 mg/dL BUN 27 (H) 10 - 20 mg/dL Creatinine 0.82 0.80 - 1.50 mg/dL Sodium 131 (L) 135 - 145 mmol/L Potassium 4.1 3.5 - 5.0 mmol/L Chloride 98 98 - 107 mmol/L CO2 20 (L) 22 - 31 mmol/L Anion Gap 13 5 - 15 mmol/L Calcium 8.2 (L) 8.5 - 10.5 mg/dL Estimated GFR 87 >=60 mL/min/1.73 m?? Hepatic Function Panel Result Value Ref Range Total Protein 5.3 (L) 6.1 - 8.0 g/dL Albumin 3.2 3.2 - 5.2 g/dL AST 13 0 - 39 unit/L ALT 22 0 - 55 unit/L Alk Phos 83 40 - 130 unit/L Total Bilirubin 0.4 0.2 - 1.3 mg/dL Bili, Direct 0.1 0.0 - 0.3 mg/dL Hemogram Result Value Ref Range WBC 13.3 (H) 4.0 - 9.5 x10(3)/mcL RBC 4.25 (L) 4.58 - 5.54 x10(6)/mcL Hemoglobin 12.7 (L) 13.7 - 16.5 g/dL Hematocrit 37.7 (L) 40.5 - 48.5 % MCV 88.7 82.9 - 93.1 fL MCH 29.9 27.5 - 32.1 pg MCHC 33.7 32.0 - 35.7 g/dL Platelets 203 145 - 357 x10(3)/mcL RDWSD 47.6 (H) 36.0 - 45.0 fL RDWCV 14.8 (H) 11.4 - 13.8 % MPV 9.8 7.6 - 12.9 fL nRBC % Auto 0.0 % nRBC Abs Auto 0.000 0.000 - 0.000 x10(3)/mcL Differential, Automated Result Value Ref Range Neutrophils % 87.6 % Neutr Abs (ANC) 11.64 (H) 1.70 - 6.10 x10(3)/mcL Lymphocytes % 6.3 % Lymphocytes Abs 0.8 (L) 0.9 - 3.2 x10(3)/mcL Monocytes % 3.5 % Monocyte Abs 0.5 0.3 - 0.9 x10(3)/mcL Eosinophils % 0.1 % Eosinophils Abs 0.0 0.0 - 0.4 x10(3)/mcL Basophils % 0.2 % Basophils Abs 0.0 0.0 - 0.1 x10(3)/mcL Immature Gran % 2.30 % Beba Gran Abs 0.30 (H) 0.00 - 0.04 x10(3)/mcL Diagnostic Tests and Imaging: FINDINGS: Prior left frontal and left parietal craniotomy changes again seen. ?? Interval recurrence of metastases in the left frontal and medial left parietal resection site as noted previously with lesions that measure up to 2.7 cm and 3.8 cm respectively in the axial plane. Mild increased edema about the left parietal lobe lesion and decreased edema about the left frontal lobe lesion. ?? There is also been mild interval enlargement of 2 metastatic lesions in the posterior right frontal lobe that measure up to 2.2 and 1.1 cm in the axial plane, previously 1.4 and 0.5 cm. ?? There is also a new lesion in the anteromedial left temporal lobe that measures 0.4 cm. ?? Mild dural enhancement is noted in the left parietal and anterior left frontal regions, nonspecific. ?? Minimal [id number] midline shift with no uncal herniation or downward transtentorial herniation. ?? Stable small arachnoid cyst in the anterior aspect of the right middle fossa. ? IMPRESSION 1. 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 2. Mild interval enlargement of 2 posterior right frontal metastatic lesions and a new subcentimeter metastatic lesion in the anteromedial left temporal lobe. ?? Assessment: Ilir Laird is a 75 y.o. 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 Neurology is consulted for ongoing seizures. He has significant right sided weakness with decreased sensation over RLE. MRI showed metastatic reoccurence on the left with interval enlargement of 2 posterior right frontal metastatic lesions and new subcentimeter lesion in anteromedial left temproal love. Patient's history consistent with focal status aborted with ativan. Patient now on keppra 1.5g BIDand depakote 500mg BID. LFT's obtained were wnl and depakote level to be drawn prior to AM dose tomorrow. Patient is receiving decadron 6mg q6hr. If there is ongoing concern for seizures can obtain cVEEG monitoring. Recommendations: -Consider cVEEG if concern for ongoing seizures -C/W Keppra 1.5g BID -Continue Depakote 500mg BID -recommend augmenting with a one time IV load of 1000mg to expedite achieving steady state -Obtain LFTs -C/W Decadron for edema ?? X Consult service will continue to follow patient. Recommendations are above, please page if further consultation required. ?? Marly Greer APRN 07/23/2021 Consult Neurology Pager [phone] Plan of Care - Marcus Sullivan RN - 07/22/2021 11:32 PM EDT OUTCOME EVALUATION NOTE: OUTCOME SUMMARY: Pt A&Ox4. Pleasant mood. No c/o pain or nausea. Pt rested between care. Meds given as ordered. Assessment as filed. Will continue to monitor and report any changes. PLAN MOVING FORWARD: Whole brain radiation tomorrow morning 0845 Continue with dexamethasone to reduce swelling Monitor for symptoms INDIVIDUALIZED FALL PREVENTION INTERVENTIONS: Patient-specific fall risk factors per assessment: [current deficits]: Weakness. Right sided hemiparalysis. Assistance [level of assistance required for transfers and ambulation]: 2 person assist. Supervision [direct monitoring required during toileting and ADLs]: Patient is able to use the urinal. 2 assist with the commode Surveillance [continuous indirect monitoring]: Room near nurses station, bed alarm in use, call bellwithin reach, Patient-specific fall prevention interventions for sensory deficits provided, if applicable: [X] N/A CPG GOAL OUTCOME EVALUATION: Plan of Care - Aakash Bowser RN - 07/22/2021 6:33 PM EDT OUTCOME EVALUATION NOTE: OUTCOME SUMMARY: Mr. Laird is an A+Ox4 75-year-old male with SCC with multiple lesions to the jose. Patient had a session of whole brain radiation this evening is also scheduled to have whole brain radiation in the tomorrow morning around 0845. Vital signs have been stable. Patient is receiving dexamethasone to reduce swelling. Family has been supportive at the bedside. PLAN MOVING FORWARD: Whole brain radiation tomorrow morning 0845 Continue with dexamethasone to reduce swelling Monitor for symptoms INDIVIDUALIZED FALL PREVENTION INTERVENTIONS: Patient-specific fall risk factors per assessment: [current deficits]: Weakness. Right sided hemiparalysis. Assistance [level of assistance required for transfers and ambulation]: 2 person assist. Supervision [direct monitoring required during toileting and ADLs]: Patient is able to use the urinal. 2 assist with the commode. Surveillance [continuous indirect monitoring]: Intentional rounding. Bed alarm. Patient-specific fall prevention interventions for sensory deficits provided, if applicable: [X] Yes ACP (Advance Care Planning) - Mayra Smith ROLLER REPAIRER - 07/22/2021 1:19 PM EDT Serious Illness Conversation Date of Conversation: 07/22/2021 Discussion with: Patient + Agent/Surrogate Understanding of illness: Accurate understanding of prognosis or disease trajectory Ilir and his daughters have a good understanding of the progressive nature of his cancer, the impactit's had on his body (R sided weakness), and reported how they've heard about a limited prognosis. They named that they've heard a range when it comes to a time based prognosis, which feels conflictingand confusing for them. They've heard that time could be 2-3 months or 1 year. Information preferences: All available information, including time-based prognosis Ilir shared that he likes knowing any and all information that it available. He likes details. He isinterested in a time based prognosis; he shared that he thinks this is helpful for planning. Prognostic information given: Time-based prognosis Uncertain prognosis Difficult to predict, but there is a possibility you could get very sick, veryquickly. During our visit, the hospital medicine attending shared that from all the specialists weighing in, at least preliminarily, it seems as though the best case scenario (with treatment) is a prognosis of about 1 year. I named that worst case scenario is likely time being quite short and that most likely is somewhere in the middle. I also named that there is still a lot of uncertainty as we await input from oncology and radiation oncology in terms of what treatment might be available, risks, and benefits. Goals: Spend time with family Be at home Be physically comfortable Ilir identified that his primary goal is to be able to be home with his loved ones and his beloved dog, Truman. He wants to make sure that he gets his affairs in order. With his daughters, he named that while he'd really like to ride his motorcycle again, which he knows he can't, he would enjoy and like to make a trip to [place] in [place], which is described as a biker bar that they have visited inthe past and is a special place that they would take trips to. For the most part, Ilir named that he's accomplished everything he wants to already in his life; there are no other specific things to complete or do. He's hoping for good days with his family, friends, and dog Truman. Fears and worries: Ilir shared that he does not want to , but that he's not afraid of dying. He knows it's coming, whether it's now or in 10 years. He is accepting of the end of his life whenever it comes. He has noother specific fears or worries at this time. He denied current worries or fears associated with symptoms, dying process, etc. Strengths: Family Friends/community Ilir named how his daughters are big supports and sources of strength for him. He named how his dog Truman, has been his best, truest manager acquisition; Truman has been at his side for 5 years and has been with him through this cancer journey. Ilir also identified his extensive network of friends as a source of strength. Critical abilities: Cognitive ability (eg, meaningfully interact with loved ones - describe necessary abilities below) Ilir named that his cognitive ability is critical. He wants to be able to continue to have meaningful interactions with his loved ones. Additionally, quality of life for him includes the ability to move around and have some level of mobility, he wants to be able to do light stuff and putter/michael. He wants to be able to be as independent as possible for as long as possible in terms of personal care/taking care of himself, however, he is accepting of help/assistance as needed (he has already experienced this with the R sided weakness). Trade-offs: Ilir is interested and wanting to hear from oncology and radiation oncology about what treatment options are available to him. At this time, he thinks he is is willing to go through treatment (likely whole brain radiation) even to get one more month of time. We explored CPR and intubation/ventilation and he shared that when he first arrived to the hospital he said yes to these interventions, however, he has since been thinking about it and wonders if it's something he actually wants. Family/Agent/Surrogate awareness: DPOA/Surrogate present for discussion Recommendations made: Based on Ilir's goals and values, namely getting more time if possible, valuing his cognition and physical abilities, with the ultimate goal of getting back home, I recommended putting protections in place in regards to his code status. We decided that CPR and intubation/ventilation would not get him closer to his goals and we worry that if he needed these, it would be an indication that he would already be in a bad clinical situation. I recommended changing his code status to DNR/DNI, which he is in agreement with. I completed a POLST to reflect no CPR, no intubation, and selective interventions. We will work on completing an advance directive to name his daughters as his health care agents. Brenda likely proceed with initiation of radiation; we are awaiting treatment plan from onc/rad onc. Mayra Smith APRN Palliative Care Fellow Consult Note - Mayra Smith APRN - 07/22/2021 1:18 PM EDT Palliative Care Daily Progress Note NAME: Ilir Laird Encounter Date: 07/22/2021 Inpatient Attending: Samara Fierro MD PCP: Myriam Riggins MD Hospital day: Hospital Day 1 day ID: Ilir Laird is a 75 y.o. male from [place], [place] with newly diagnosed NSCLC with mets to the brain s/p debulking craniotomy on 06/30/21. After the recent initial June hospitalization, he was discharged to rehab and his course was complicated by recurrent seizures and new onset right hemiplegia forwhich he presents to [facility]. He continues to be followed by the Palliative Care service for goals of care and decision making support. Interval History: - Last seen by palliative care team on 07/01/21 by Sherie Roberts APRN - Rehab stay following last hospitalization - Upon discharge from rehab and returning home for 1 night, he experienced acute R sided weakness for which he presents to [facility] - Repeat imaging shows metastatic reoccurrence with enlargement of metastatic lesions Physical sx/ROS: Symptoms were not the focus of this visit. Emotional/coping/counseling: I visited Ilir at bedside with Damion present, jointly along with Dr. Samara Fierro initially. Dr. Fierro provided a medical update and I continued to converse with Ilir and his daughters. I re-introduced palliative care since he had a brief initial visit with our team during his last hospitalization in June. In getting to know Ilir as a person, he shared that he loves motorcycles, as he's ridden one since high school. His truest, beloved manager acquisition is his dog, Truman; he's a to retriever that Ilir has had for 5 years. Ilir was emotional in speaking about Truman and how much he cares forhim. He shared how Truman has been at his side through tough times including during this cancer journey. 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 He shared that he retired after his CABG. Sabi has his 2 daughters, Leida and Antonina, whom he loves very much; they are very big supports for him. Of note, Antonina works in [employer]. Ilir also has multiple grandchildren. He's someone who gets along with everyone and has a big network o f supportive friends. He also has a good sense of humor. I spent time exploring Ilir's values and goals through an initial serious illness conversation (see separate ACP note for details). Relevant Palliative Care Medications: Scheduled: ??? atorvastatin 80 mg Oral QPM ??? levETIRAcetam 1,500 mg Oral BID ??? metoprolol tartrate 12.5 mg Oral BID ??? pantoprazole EC 40 mg Oral Daily ??? sodium chloride 1 g Oral TID ??? dexamethasone inj 6 mg Intravenous Q6H CORIN ??? sodium chloride 0.9 % (flush) 5 mL Intravenous BID ??? heparin (porcine) 5,000 Units Subcutaneous Q8H CORIN ??? divalproex EC 500 mg Oral BID PRNs (including 24 hour usage): None Social History/Context: Reviewed. 2 Daughters: Leida (Ana) and Antonina (works in home health) Beloved to retriever Truman Physical Examination: Patient Vitals for the past 24 hrs: Temp Heart Rate From SP02 Pulse Resp BP SpO2 O2 Device 07/21/21 1330 -- -- 65 12 119/70 95 % -- 07/21/21 1345 -- -- 72 20 (!) 145/100 94 % -- 07/21/21 1400 -- -- 62 14 118/70 95 % -- 07/21/21 1415 -- -- 63 13 116/57 94 % -- 07/21/21 1430 -- -- 67 13 116/73 96 % -- 07/21/21 1445 -- -- 65 22 (!) 132/111 95 % -- 07/21/21 1500 -- -- 67 16 122/63 95 % -- 07/21/21 1700 -- -- 79 13 142/75 95 % -- 07/21/21 1715 -- -- 74 15 120/81 92 % -- 07/21/21 1730 -- -- 75 14 125/84 91 % -- 07/21/21 1745 -- -- 71 18 119/69 91 % -- 07/21/21 1800 -- -- 66 15 117/72 92 % -- 07/21/21 1815 -- -- 69 16 145/62 -- -- 07/21/21 1830 -- -- 78 20 118/89 96 % -- 07/21/21 1845 -- -- 81 16 127/66 93 % -- 07/21/211999 -- -- (!) 103 20 -- 93 % -- 07/21/21 2030 -- -- 82 16 -- 92 % -- 07/21/21 2110 36.7 ??C (98 ??F) -- -- 17 122/68 94 % 07/21/215 -- -- 71 13 -- -- -- 07/21/21 2224 36.7 ??C (98.1 ??F) -- -- 14 120/65 93 % RA 07/21/21 2249 36.7 ??C (98.1 ??F) 65 bpm -- 16 126/71 94 % RA 07/22/21 0324 36.7 ??C (98.1 ??F) 64 bpm -- 16 125/74 94 % RA 07/22/21 1044 -- 76 bpm -- 18 163/83 94 % -- GEN: older man, in bed with HOB elevated, in no acute distress PULM: respirations regular, unlabored on RA NEURO: awake, alert, oriented, cleer speech, R sided weakness of upper and lower extremities PSYCH: intermittently tearful, emotional Labs/Radiology: relevant interval data reviewed, pertinent results include: Lab Results Component Value Date WBC 9.8 (H) 07/22/2021 HGB 13.2 (L) 07/22/2021 HCT 39.3 (L) 07/22/2021 MCV 90.3 07/22/2021 PLATELET 217 07/22/2021 Lab Results Component Value Date NA 132 (L) 07/22/2021 K 4.4 07/22/2021 CL 100 07/22/2021 CO2 19 (L) 07/22/2021 BUN 28 (H) 07/22/2021 CREATININE 0.93 07/22/2021 GLUCOSE 154 07/22/2021 CALCIUM 8.3 (L) 07/22/2021 ESTGFR 81 07/22/2021 Lab Results Component Value Date ALT 28 07/22/2021 AST 17 07/22/2021 ALKPHOS 100 07/22/2021 BILITOT 0.3 07/22/2021 BILIDIR 0.1 07/22/2021 ALBUMIN 3.3 07/22/2021 PROT 5.5 (L) 07/22/2021 07/21/2021 MRI Brain IMPRESSION 1. 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 2. Mild interval enlargement of 2 posterior right frontal metastatic lesions and a new subcentimetermetastatic lesion in the anteromedial left temporal lobe. Palliative Care Assessment: Ilir is a 75 y.o. man from the [facility] with newly diagnosed metastatic NSCLC with reoccurrence of metastatic brain lesions, indicating accelerated, symptomatic progression, as he presents with new onset R sided weakness. He seems to have an accurate understanding of the worrisome nature of his limited prognosis. He is clear about his goals of wanting to be home with his family and dog, while also being willing to undergo cancer-directed treatment, most likely whole brain radiation, for the hope of getting more time and possibly improving his functional status. Plan/Recommendations: Goals of Care - Change code status to DNR, DNI - POLST completed - Will work on completion of advance directive --> palliative care aids social worker to engage to assist with completing AD to name his daughters as health care agents - Serious illness conversation completed --> see separate ACP note - Willing to consider cancer-directed treatment for the hope of gaining more time, which will most likely be radiation --> awaiting more information (risks, benefits, tx plan) from oncology and radiation oncology - Palliative care will continue to follow while inpatient and consider appropriate outpatient follow-up, most likely to connect with [facility] Palliative Care Team since he will be getting treatment at [facility] Palliative Care follow-up plan: Medical team Nursing team Psychosocial Support Inpatient Ongoing while inpatient; please page [phone] if need assistance over the weekend, otherwise, will re-engage on Sunday Palliative care aids social worker to assist with completion of AD to name healthcare agents Outpatient Most likely to f/u with [facility] Palliative Care teams since he will be getting treatment at [facility] This was a 45 min visit with 35 min spent in direct counseling and coordination of care regarding goals of care and decision making support. Case discussed with Sherie Roberts APRN; she is aware and in agreement with the current plan. Mayra Smith APRN Palliative care team pager #[phone] Associated attestation - Sherie Roberts APRN - 07/23/2021 8:07 AM EDT ALINA Faculty Supervision note Mr. Laird is a 75 year old man with newly diagnosed metastatic cancer to the brain, most likely lungcancer, admitted with rapid progression of disease in the brain. Plan is to begin WBRT. The chart was reviewed and case discussed with Ms. Smith. I was not present for the encounter but, the assessmentand plan was discussed with me and I agree with it as documented. Sherie Roberts APRN. Initial Assessments - Maranda Teresa RN - 07/22/2021 12:50 PM EDT Office of Care Management Initial Assessment Maranda Teresa RN reviewed record and discussed patient with Care Team. Source of Information: Team, bedside nurse, medical record, and Patient and daughter Ana. Introduced self/reviewed role; services accepted. Reason for Hospitalization: NSCLC S/P debulking craniotomy, R sided weakness and seizures Covid Vaccination Status: Unvaccinated Last COVID test: Lab Results Component Value Date [id number] Not Detected 07/21/2021 Past medical History: Past Medical History: Diagnosis Date ??? CAD (coronary artery disease) s/p CABG 2018 ??? High cholesterol ??? Hypertension ??? Tobacco use Hospitalizations Within the Past 30 Days: previous discharge plan unsuccessful Current Decision-Making Capacity: Self Advance Care Planning: Do NOT Attempt CPR - Inpatient <no information> -Advanced Directive: No, need to discuss If AD's have not been completed kishore Perez would be surrogate decision maker per [place] surrogatedecision making law. (Only good for 180 days) Any patient receiving care at [facility] must abide by [place] law. The hierarchy for surrogate decision making is: (a) Patient???s spouse, or civil union partner or common law spouse unless there is a divorce proceeding, separation agreement, or restraining order limiting that person???s relationship with the patient. (b) Any adult son or daughter of the patient. (c) Either parent of the patient. (d) Any adult brother or sister of the patient. (e) Any adult grandchild of the patient. (f) Any grandparent of the patient. (g) Any adult aunt, uncle, niece, or nephew of the patient. (h) A close friend of the patient. (i) The agent with financial power of deputy attorney general or a conservator appointed in accordance with [place] 464-A. (j) The guardian of the patient???s estate. Current Coping/Education/Information Needs: Educated patient and daughter Ana on the CM role and the DC planning and referrals process. Current Functional Ability: Independent, Assistive Equipment Functional Status Prior to Admission: Independent, Assistive Equipment Prior ADLs & IADLs: Independent with all ADLs & IADLs Home Environment: Others in the home: alone. Current Living Arrangements: home/apartment/condo. Accessibility Concerns:House 2 ramp. Resource / Environmental Concerns: Resource/Environmental Concerns: none Current DME: walker - rolling, cane - straight, wheelchair - manual [facility] [place] [address] Social & Family Supports: All names listed below confirmed with patient as current and correct Extended Emergency Contact Information Primary Emergency Contact: Antonina Garcia Relation: Child Secondary Emergency Contact: Sandro Tobias Relation: Child Current Care Provided by: Provides Primary Care For: no one Caregiver if needed: child(annette), adult Quality of Family relationships: helpful, involved, supportive Community Resources being provided currently: homecare agency Behavioral Health History: Denied Substance Use/Abuse confirmed: Social History Tobacco Use Smoking Status Former Smoker ??? Packs/day: 1.00 ??? Years: 30.00 ??? Pack years: 30.00 Smokeless Tobacco Former User Tobacco Comment Quit 5 days ago In the past year have you used an illegal drug or used a prescription medication for non-medical reaons?: No 0 No problems reported 1-2 Low level 3-5 Moderate level 6-8 Substantial level 9- 10 Severe level In the past year have you had 5 or more drinks a day containing alcohol?: No 0 to 7 points: Low risk 8 to 15 points: Medium risk 16 to 19 points: High risk 20 to 40 points: Addiction likely Other Pertinent/Service Specific Information: Patient reports he has a supportive family. His daughter lives nearby and is able to assist with any needs. Health/Prescription Coverage: Primary Insurance: [employer]ICARE Payor: [employer]ICARE / Plan: [employer]ICARE / Product Type: *No Product type* / Secondary Insurance: N/A Prescription Coverage: Yes Preferred Pharmacy: [id number] AT [facility] & [address] [id number] Status: Patient is a : Yes ([employer] for 6 years) Are you enrolled in the VA for your healthcare?: No Primary Care Provider: Myriam Riggins MD [phone] Patient/Caregiver Goals of Treatment: Potential Needs for Transition of Care: home health care Agency Referrals: I have met with the patient to: ?? discuss discharge planning needs. ?? provide the [facility], Office of Care Management letter from the Veterinary Practitioner pertaining to rehab referrals. ?? provide a letter describing our affiliations within the [facility] and educate about their right to choose where referrals are sent. ?? provide a list of Home Health Agencies / Durable Medical Equipment vendors which serve their preferred geographic area. ?? provided patient with [facility] Star Quality Rating handout. They have requested referrals to: [facility]. [address] [place] [address] Note routed to a Life Sciences Manager who will communicate referrals to facilities and provide any required information. Transportation: no concerns Transportation Anticipated: Concerns to be Addressed: discharge planning Assessment: Patient is admitted to Med service for seizures Plan: Referral placed for [facility] for SN PT OT VIDEO EDITOR A member of the Care Management team will continue to monitor progress, follow for continuity of care and assist with transition of care planning. Consult Note - Humza Laura MD - 07/22/2021 11:20 AM EDT Date of Consultation: 07/22/21 Consult Service: Radiation oncology Responsible Attending: Harry Laura Place of Service: Inpatient Unit Reason for Consult: We are seeing Ilir Laird at the request of Dr Fierro of the hospitalist servicefor the evaluation of treatment of brain metastases. I have reviewed the available records, interviewed, and examined the patient. History of Present Illness: Ilir Laird is a 75 y.o. right-handed with PMH tobacco use, CAD s/p CABG previously on ASA, who presented originally in June 2021 to OSH with 3-4 week history of initially RIGHT lower extremity weakness, inability to ambulate without assistance x1 week, and approximately 5 day history of RIGHT upper extremity weakness. ??MRI exhibited multiple bilateral intracranial lesions, the largest of which was in the LEFT frontal lobe with surrounding vasogenic edema concerning for metastases given a R hilarlung mass as well. Under the care of Dr. Justice, underwent left frontal/parietal craniotomies for tumor resections on 06/30/21. Final pathology 06/30/21: DIAGNOSIS A- Likely Lung Primary. ? Small Cell or Not???, excision: Metastatic carcinoma with neuroendocrine features B- Likely Lung Primary. ? Small Cell or Not???, excision: Metastatic carcinoma with neuroendocrine features (see comment) Comment: The majority of the specimens contain necrotic tissue, but small fragments ??are present with viable, large, epithelioid tumor cells with abundant cytoplasm and ??neuroendocrine features. A metastatic large cell neuroendocrine carcinoma is in the ??differential diagnosis. DISCUSSION Hematoxylin and eosin-stained sections of the specimens show fragments of neoplastic ??epithelioid cells amid large areas of geographic necrosis. Most of the neoplastic ??cells are large, with abundant eosinophilic or vacuolated cytoplasm and pleomorphic ??nuclei. Occasional cells have stippled chromatin or prominent nucleoli. A mitotic??figure is identified. ADDITIONAL STUDIES Immunohistochemistry Studies: Block Antibody Result B1 ?? CKAE1/3 ? Positive in a subset of cells. B1 ? CK7 ? Positive in a majority of cells. B1 ? CK20 ? Negative. B1 ? TTF1 ? Negative. A1,B1 ?? napsinA ? Weakly positive in a focus of cells. A1,B1 ?? p40 ? Negative. A1,B1 p63 ? Negative. A1,B1 INSM1 ? Positive in a subset of cells. A1,B1 synaptophysin ? Positive in a small subset of cells. B1 ?? CD56 ? Positive in a subset of cells. Molecular genetic testing has been ordered. Post-op MRI 06/30/21: COMPARISON: CT 06/28/2021, MR 06/28/2021 ?? FINDINGS: There has been interval left-sided craniotomies with left frontal and superior mesial posterior frontal/parietal resections. There is a rim of abnormal enhancement associated with the resection cavities, especially at the deep and anterolateral margin of the more posterior lesion, and at the anterior mesial margin of the anterior lesion. Right superior posterior frontal, and precentral metastatic lesions are unchanged. The left-sided edema is similar in extent. Localized sulcal effacement is similar. There is no new infarct. Blood products are associated with areas of resection. ?? IMPRESSION Postsurgical changes after resection of left-sided metastatic lesions. ?? Patient was discharged to rehab facility 07/08 with planned follow-up with med oncology, radiation/oncology, neurology. On telephonic follow-up with Dr Wright of our department on 07/12/21, Mr. Laird was noted to be feeling better, with sensory function back to normal in RUE, and only mild residual deficit in distal RLE. Right-sided strength also had improved, and he was ambulating on his own. Plans were made for repeat MRI to assess for possible SRS. On 07/13/21 he experienced three episodes in succession of RUE and RLE spasm/shaking and aphasia butretained consciousness. He was evaluated at [facility] ED. Keppra was increased from 1000 mg BID to 1500 mg BID. Dexamethasone taper was switched to 4 mg QID. Patient was released from rehab 07/20/21. Once home, he and his daughters noted RUE and RLE strength were worsening. On 07/21/21 he returned to , was evaluated in ED, but experienced uncontrolled shaking of the RUE, alleviated with 0.5 mg Ativan. He was admitted. Dexamethasone was increased, with 10 mg IV bolus, and thereafter 6 mg IV q 6 hours.Depakote was added to his regimen: 500 mg BID. Brain MRI 07/21/21: COMPARISON: MRI brain 06/30/2021 ?? FINDINGS: Prior left frontal and left parietal craniotomy changes again seen. ?? Interval recurrence of metastases in the left frontal and medial left parietal resection site as noted previously with lesions that measure up to 2.7 cm and 3.8 cm respectively in the axial plane. Mild increased edema about the left parietal lobe lesion and decreased edema about the left frontal lobe lesion. ?? There is also been mild interval enlargement of 2 metastatic lesions in the posterior right frontal lobe that measure up to 2.2 and 1.1 cm in the axial plane, previously 1.4 and 0.5 cm. ?? There is also a new lesion in the anteromedial left temporal lobe that measures 0.4 cm. ?? Mild dural enhancement is noted in the left parietal and anterior left frontal regions, nonspecific. ?? Minimal [id number] midline shift with no uncal herniation or downward transtentorial herniation. ?? Stable small arachnoid cyst in the anterior aspect of the right middle fossa. ? IMPRESSION 1. 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 2. Mild interval enlargement of 2 posterior right frontal metastatic lesions and a new subcentimeter metastatic lesion in the anteromedial left temporal lobe. Review of Systems: Presently denies headache, nausea, vomiting, numbness, paresthesias, LOC, difficulties with balance,visual or auditory symptoms. Denies bowel or bladder symptoms. Weakness of RUE and RLE continues. He feels this may have improved a bit over the past day. Past Medical and Surgical History: Past Medical History: Diagnosis Date ??? CAD (coronary artery disease) s/p CABG 2018 ??? High cholesterol ??? Hypertension ??? Tobacco use Past Surgical History: Procedure Laterality Date ??? PRO EXCIS SUPRATENT BRAIN TUMOR Left 06/30/2021 @CRANI, FOR TUMOR, SUPRATENTORIAL, NOT MENINGIOMA (WRVU 30.83) performed by Darian Justice MD at [facility] MAIN OR ??? PRO MICROSURG TECHNIQUES, REQ OPER MICROSCOPE N/A 06/30/2021 MICROSCOPE USE (WRVU 3.46) performed by Darian Justice MD at [facility] MAIN OR ??? PRO STEREOTACTIC CPTR ASSTD PX CRANIAL, INTRADURAL N/A 06/30/2021 STEREOTACTIC COMPUTER-ASSTD NAVIGATIONAL CRANIAL INTRADURAL (WRVU 3.75) performed by Darian Justice MD at [facility] MAIN OR Medications: ??? atorvastatin 80 mg Oral QPM ??? levETIRAcetam 1,500 mg Oral BID ??? metoprolol tartrate 12.5 mg Oral BID ??? pantoprazole EC 40 mg Oral Daily ??? sodium chloride 1 g Oral TID ??? dexamethasone inj 6 mg Intravenous Q6H CORIN ??? sodium chloride 0.9 % (flush) 5 mL Intravenous BID ??? heparin (porcine) 5,000 Units Subcutaneous Q8H OCRIN ??? divalproex EC 500 mg Oral BID Prior To Admission Medications: No current facility-administered medications on file prior to encounter. Current Outpatient Medications on File Prior to Encounter Medication Sig Dispense Refill ??? dexamethasone (Decadron) 4 mg Tablet Take 4 mg by mouth every 6 hours. Picked up 07/20 ??? levETIRAcetam (KEPPRA) 1,000 mg Tablet Take 1 tablet by mouth 2 times daily. (Patient taking differently: Take 1,500 mg by mouth 2 times daily.) 60 tablet 12 ??? metoprolol tartrate (Lopressor) 25 mg Tablet Take 0.5 tablets by mouth 2 times daily. 180 tablet3 ??? pantoprazole EC (Protonix) 40 mg Tablet, Delayed Release (E.C.) Take 1 tablet by mouth daily. 90tablet 3 ??? sodium chloride 1 gram Tablet Take 1 tablet by mouth 3 times daily. ??? atorvastatin (Lipitor) 80 mg Tablet Take 80 mg by mouth every evening. ??? multivitamin (THERAGRAN) Tablet Take 1 tablet by mouth daily. ??? acetaminophen (Tylenol) 325 mg Tablet Take 3 tablets by mouth every 8 hours as needed for Pain or Fever. 30 tablet 1 Allergies: Allergies Allergen Reactions ??? Cis Free Text Allergy Environmental. CIS - Allergic Rhinitis Family History: Family History Problem Relation Age of Onset ??? Heart Disease Mother ??? Cerebrovascular Accident Father Social History and Habits: Social History Socioeconomic History ??? Marital status: Spouse name: Not on file ??? Number of children: Not on file ??? Years of education: Not on file ??? Highest education level: Not on file Occupational History ??? Not on file Tobacco Use ??? Smoking status: Former Smoker Packs/day: 1.00 Years: 30.00 Pack years: 30.00 ??? Smokeless tobacco: Former User Quit date: 06/24/2021 ??? Tobacco comment: Quit 5 days ago Vaping Use ??? Vaping Use: Never used Substance and Sexual Activity ??? Alcohol use: Yes Alcohol/week: 3.0 standard drinks Types: 3 Cans of beer per week Comment: Not recently ??? Drug use: Never ??? Sexual activity: Not Currently Other Topics Concern ??? Not on file Social History Narrative ??? Not on file Social Determinants of Health Financial Resource Strain: Not on file Food Insecurity: Not on file Transportation Needs: Not on file Physical Activity: Not on file Housing Stability: Not on file Physical Exam: BP 163/83 (BP Location (NBP): Right arm, Patient Position: Sitting) Pulse 71 Temp 36.7 ??C (98.1??F) (Oral) Resp 18 Ht 172.7 cm (5' 8) Wt 79.4 kg (175 lb) SpO2 94% BMI 26.61 kg/m?? KPS 70. 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 Extraocular movements intact. Visual sherwood full to confrontation bilaterally. Strength and sensation bilaterally symmetric and intact across the face. Hearing intact bilaterally. Sternocleidomastoid functions bilaterally intact. Uvula elevates midline. Tongue extends midline. Extremities: Strength, sensation, DTRs symmetric and intact in the left upper and lower extremities. Sensation appears intact in RUE and RLE. Decreased strength on right, with impaired finger sales contracts analyst, elbow flexion/extension, shoulder shrug, hip flexion, and foot dorsi/plantar flexion. Intact toe position sense bilaterally. Left-sided finger-nose intact. Investigations: As above. Assessment: Ilir Laird is a 75 y.o. 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 Unfortunately, he has had rapid re-growth of these resected lesions over only three weeks. Dr. Buenrostro (neurosurgery) and I carefully discussed treatment options. Re- resection might again provide some relief with decreased mass effect, but it is likely the lesions would again rapidly re-grow, rendering this approach counter- productive. Initiation of XRT would seem a better approach at this time, in an effort to control this intracranial disease progression, which if left unchecked would be potentially life-threatening. Although SRS had originally been considered a possible treatment approach, given the rapid growth ofthese lesions, and the size, number, and extent of the metastases, not to mention the sense of urgency at this juncture for initiating treatment, SRS may not be the best option. A better alternative would be to proceed with urgent initiation of whole brain XRT, which we can do today. Benefits and risks of this strategy were carefully reviewed with Mr. Laird and his daughters. Informed consent was obtained. We will proceed with simulation, planning, and initiation of WBRT today. Ilir Laird was seen for a total of 60 minutes, discussing the case with the patient and his family, reviewing the medical record and pertinent studies, and coordinating care with other providers. Recommendations are above, please page if further consultation required. Initial Assessments - Kylee Torres, COMMUNICATION STUDIES PROFESSOR - 07/22/2021 10:55 AM EDT Speech Therapy Bedside Swallow Evaluation Patient Profile: Ilir Laird is a 75 y.o. male admitted on 07/21/2021 for R sided weakness and unable to move R side. Dx: acute R hemiplegia. PMH significant for: CAD, high cholesterol, HTN, tobacco use, NSCLC recently dx in June s/p debulking craniotomy presenting today with acute R hemiplegia and me tastatic disease. Skilled COMMUNICATION STUDIES PROFESSOR evaluation warranted for TIA/CVA protocol. Prior Level of Swallow Function: pt reports being on a regular diet at baseline with no prior history of dysphagia. Subjective: Pt alert and in hospital bed, in the middle of neurology specialist administration. Pt's two daughters present at bedside. Objective: Pt seen for evaluation today. Pain: pt denies pain Respiratory Status: Room air Vision: aided with glasses Hearing: WFL Current Diet: Regular diet Feeding Status: Patient is independent Dependent for Oral Care? No Cognitive-Linguistic Status: alert, oriented to person, place, and time and affect appropriate to mood Follows Commands: Follows multi-step commands Positioning: HOB at 70 degrees Oral / Laryngeal Mechanism Clinical Assessment: ?? Lingual: WFL ?? Labial / Buccal: Strong buccal seal ?? Velar: WFL ?? Sensation: WFL ?? Vocal fold function and airway protection: WFL ?? Speech Intelligibility: WFL ?? Mucosa: intact ?? Dentition: present and adequate Bolus Presentation(s) ?? Thin liquid via cup ?? Regular solid ?? Pills Oral Preparatory Phase ?? Mastication: WFL ?? Oral Transit: WFL ?? Bolus Cohesion: WFL ?? Labial Seal / Loss: negative ?? Oral Stasis: negative Pharyngeal Phase ?? Laryngeal Elevation: WFL ?? Vocal quality change: No changes ?? Cough / throat clear: No coughing/throat clearing ?? Pt. complaint of food getting stuck: No complaints ?? Fatigue across trials: No ?? Respiratory rate and respiratory swallow pattern: No changes Esophageal Phase ?? Appears to be WFL, No overt clinical s/s of esophageal phase dysphagia noted during this evaluation. Compensatory Techniques: None indicated Education: Patient educated on results and recommendations, and verbalized understanding. Patient status, treatment and swallow recommendations were discussed with nursing. Assessment: Pt seen at bedside for clinical swallowing evaluation. Pt seen with PO trials of thin liquids,regular solids and neurology specialist administration of pills whole with thin liquids. Oropharyngealswallow function is WNL. Recommend regular-consistency solids, thin liquids. No skilled ST is indicated at this time for dysphagia. No cognitive or language concerns identified. COMMUNICATION STUDIES PROFESSOR to sign off of services. Thank you for allowing Speech Pathology to be involved in your plan ofcare during this inpatient hospitalization. COMMUNICATION STUDIES PROFESSOR to sign off. Diagnosis: WFL oropharyngeal swallowing function Recommendations: Diet: Regular solids Thin liquids PO medications: whole with sip of liquid Aspiration precautions: Upright position during meals and for at least 30 mins following Alternate liquids and solids Excellent oral care No further COMMUNICATION STUDIES PROFESSOR intervention is warranted while hospitalized. Speech Therapy Goals: (To be met by discharge) evaluation only, no goals Plan: Therapy Frequency (COMMUNICATION STUDIES PROFESSOR Eval): evaluation only Patient / family are in agreement with treatment plan. Total Minutes (Speech Language Pathology): 11 Thank you for this consult with this patient. Please feel free to page me with any questions or concerns. Kylee Torres M.A.,[facility]-COMMUNICATION STUDIES PROFESSOR Pager [phone] Speech-Language Pathology Inpatient Rehabilitation Department Consult Note - Jorge Andrade, - 07/22/2021 8:13 AM ED[place] [address] [phone] Ilir Laird is being seen for the evaluation of lung cancer. Assessment & Plan: Ilir Laird is a 75 y.o. 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 I counseled the patient and his family, his daughters Sandro huber) and Antonina, aboutthe diagnosis, pathology results, imaging findings, tumor staging and the implications of this information on the prognosis and the available treatment options. I explained this is an incurable malignancy where systemic treatment is the mainstay. I discussed the need to consider treatment within the context of potential risks and side effects of treatment as well as individual goals and preferences regarding quality of life. At this point Ilir has but seems to be a new subcentimeter metastatic lesion in the anteromedial left temporal lobe. This is in addition to interval metastatic recurrence in the 2 left-sided surgical beds and enlargement of 2 posterior right frontal metastatic lesions. All these interval changes are noted over the course of 3 weeks between the postop MRI on 06/30 and the MRI obtained yesterday on 07/21. This accelerated progression is concerning as it is also symptomatic. The neurosurgical team was consulted and it is not clear whether they plan on another therapeutic resection. If this is not an option then symptomatic radiation should be considered next. The radiation oncology team has been consulted and its possible that WBRT is a good option for Ilir at this time. I briefly discussed systemic treatment with Sandro Hazel and Antonina today. I did not go into too muchdetail regarding this but I explained that they would come following his discharge from the hospital. Additionally I would like to engage with pathology to finalize the path report from his craniotomy.Molecular studies are also pending. Ilir's questions were all answered to his satisfaction. They hadno further question at this time but we will be available to answer any should they arise. Patient was seen and discussed with MD Lupe Price, Jorge, DO Fellow, Hematology and Medical Oncology [facility] Pager: [phone], 07/22/21, 8:13 AM HPI/Interval History/Subjective: Ilir Laird is a 75 y.o. male patient with a PMHx significant for tobacco use, CAD s/p CABG previously on ASA. He originally presented on 06/28/2021. with 3-4 week history of initially RIGHT lower extremity weakness, inability to ambulate without assistance x1 week, and approximately 5 day history ofRIGHT upper extremity weakness. ??MRI exhibited multiple bilateral intracranial lesions, the largestof which was in the LEFT frontal lobe with surrounding vasogenic edema concerning for metastases given a R hilar lung mass on CT chest. Ilir underwent a left frontal/parietal craniotomies for tumor resections on 06/30/2021. Path showed asquamous NSCLC. He was discharged to rehab and was feeling well until 07/13/21 at which time he experienced three episodes in succession of RUE and RLE spasm/shaking and aphasia but retained consciousne ss. He was discharged on Decadron taper to complete this same day. Transfer center call from [facility], at which time patient increased back to 4mg Decadron q6h. Neurology consult at the time as well, increased Keppra to 1.5g BID. Patient was released from rehab on the day prior to admission. He reports that he started feeling weak again and has right upper and lower extremity prior to discharge from rehab. At home, he was ambulating with a walker and with the help of his 2 daughters. He spent 1 night at home and felt that as his weakness was getting worse it was difficult to remain at home and that prompted his presentation back to the emergency department. In the ED, he experienced uncontrollable twitching and shaking of right arm (similar to events of one week ago) that was alleviated by 0.5mg IV Ativan. He is now admitted to the medicine service with consults from neurosurg, neurology, rad onc and med onc for coordination of care. During my visit Ilir is they are with his 2 daughters, Sandro (Ana) and Antonina. He reports that he feels a little stronger since coming into the hospital and getting restarted on the steroids. He denies any other complaint at this time including headache, dizziness, blurred vision, double vision, visual hallucinations, auditory hallucinations, olfactory hallucinations, slurred speech, facial droop, unilateral weakness, urinary or fecal incontinence, saddle anesthesias, chest pain, shortness of breath, cough, sputum production, abdominal pain, nausea, vomiting, diarrhea, constipation, black or bloody stools, hematuria, or dysuria. Social History/Support Network: Home situation: Lives alone but his daughter Sandro [address] Employment: Retired now but used to work in the [employer]. Tobacco use: 1pdd since he was 17, quit in 2019 but started smoking last year Alcohol use: couple beers 2-3 times week Family History: Mother: from heart disease at 91 Father: from a stroke at 90 Siblings: both are in apparent good health Children: 2 daughter, both healthy No known history of lung cancer Oncology Overview: Cancer Staging No matching staging information was found for the patient. Presentation: Staging/PreTx Eval: CT c/a/p 06/28/2021: Right hilar masses with central low-attenuation suggesting necrosis. Pathologic mediastinal adenopathy. Findings likely represent primary lung cancer. 2. 8mm low-attenuation focus posterior segment right lobe of liver, too small to characterize. 3. Changes of centrilobular emphysema. MRI brain w/wo 06/28/2021: - Multiple metastatic lesions in both sides of the brain most prominent in the left frontal and parietal lobes with surrounding white matter edema and mass effect and midline shift. MRI spine 06/28/2021: Degenerative changes. No metastatic disease. Pathology: Craniotomy 06/30/2021: Epithelioid neoplasm favoring metastatic squamous carcinoma, likely lung primary. Final path is still pending. PD-L1 TPS 10%. Molecular Data: Pending Treatment Course: 06/30/2021: Craniotomy ONCBCN ONCOLOGY (AMB) 07/21/2021 07/21/2021 07/21/2021 07/22/2021 dexamethasone (PF) 10 mg/mL (Decadron) IV 10 mg 6 mg 6 mg 6 mg Patient Active Problem List Diagnosis Date Noted ??? Right sided weakness 07/21/2021 ??? Right hemiplegia 07/21/2021 ??? Hyponatremia 07/03/2021 ??? Hyperglycemia 07/01/2021 ??? Non-small cell carcinoma of lung 06/29/2021 ??? Cigarette nicotine dependence with withdrawal 06/29/2021 ??? CAD (coronary artery disease), HLD 06/29/2021 ??? Brain metastasis, Vasogenic Edema, Seizure secondary to vasogenic edema and brain mass, neurological deficits 06/28/2021 Allergies Allergen Reactions ??? Cis Free Text Allergy Environmental. CIS - Allergic Rhinitis Medications 07/21/21 1334 Medication Sig Taking? dexamethasone (Decadron) 4 mg Tablet Take 4 mg by mouth every 6 hours. Picked up 07/20 Yes levETIRAcetam (KEPPRA) 1,000 mg Tablet Take 1 tablet by mouth 2 times daily. Patient taking differently: Take 1,500 mg by mouth 2 times daily. Yes metoprolol tartrate (Lopressor) 25 mg Tablet Take 0.5 tablets by mouth 2 times daily. Yes pantoprazole EC (Protonix) 40 mg Tablet, Delayed Release (E.C.) Take 1 tablet by mouth daily. Yes sodium chloride 1 gram Tablet Take 1 tablet by mouth 3 times daily. Yes atorvastatin (Lipitor) 80 mg Tablet Take 80 mg by mouth every evening. Yes multivitamin (THERAGRAN) Tablet Take 1 tablet by mouth daily. acetaminophen (Tylenol) 325 mg Tablet Take 3 tablets by mouth every 8 hours as needed for Pain or Fever. I reviewed the problem list, allergies, medications, past medical history, social history and familyhistory within the EPIC encounter. Pertinent details are noted above. Pertinent positives and negative from the Review of Systems are as summarized above in the HPI. Physical Exam: Wt Readings from Last 3 Encounters: 07/21/21 79.4 kg (175 lb) 07/04/21 75.8 kg (167 lb 1.7 oz) 06/30/21 75.7 kg (166 lb 14.2 oz) Temp Readings from Last 3 Encounters: 07/22/21 36.7 ??C (98.1 ??F) (Oral) 07/08/21 36.7 ??C (98.1 ??F) (Oral) BP Readings from Last 3 Encounters: 07/22/21 125/74 07/08/21 138/75 Pulse Readings from Last 3 Encounters: 07/21/21 71 07/08/21 50 Body surface area is 1.95 meters squared. Wt Readings from Last 3 Encounters: 07/21/21 79.4 kg (175 lb) 07/04/21 75.8 kg (167 lb 1.7 oz) 06/30/21 75.7 kg (166 lb 14.2 oz) KPS Score ECOG Grade Definition 90-100 0 Fully active, able to carry on all pre-disease performance without restriction X 70-80 1 Restricted in physically strenuous activity but ambulatory and able to carry out work of alight or sedentary nature, e.g., light house work, office work 50-60 2 Ambulatory and capable of all selfcare but unable to carry out any work activities; up and about more than 50% of waking hours 30-40 3 Capable of only limited selfcare; confined to bed or chair more than 50% of waking hours 10-20 4 Completely disabled; cannot carry on any selfcare; totally confined to bed or chair Constitutional: Oriented to person, place, and time. No distress. Appears well-developed. Mouth/Throat: Deferred due to COVID. Eyes: No scleral icterus. Cardiovascular: Normal rate and regular rhythm. Exam reveals no friction rub. No murmur heard. Pulmonary/Chest: Effort normal. No stridor. No respiratory distress. No wheezes. No rales. Abdominal: Soft. No distension. No tenderness.No rebound. Musculoskeletal: Normal range of motion. No edema. Lymphadenopathy: No cervical adenopathy. Neurological: Alert and oriented to person, place, and time. CN are grossly intact and non-focal. 3/5 strength in the RUE with elbow flexion and extension and arm abduction and adduction. 3/5 strength in RLE with knee flexion and extension and foot dorsi and plantar flexion. 5/5 in the LUE and LLE. Reflexes intact. Skin: Skin is warm and dry. No rash noted. No erythema. Psychiatric: Normal mood and affect. Behavior is normal. Thought content normal. Review of Laboratory Data: Recent Results (from the past 72 hour(s)) POCT Glucose Result Value Ref Range POC Glucose 106 65 - 199 mg/dL Basic Metabolic Panel (non-fasting) Result Value Ref Range Glucose Lvl 116 65 - 199 mg/dL BUN 28 (H) 10 - 20 mg/dL Creatinine 0.96 0.80 - 1.50 mg/dL Sodium 135 135 - 145 mmol/L Potassium 4.0 3.5 - 5.0 mmol/L Chloride 99 98 - 107 mmol/L CO2 21 (L) 22 - 31 mmol/L Anion Gap 15 5 - 15 mmol/L Calcium 8.5 8.5 - 10.5 mg/dL Estimated GFR 78 >=60 mL/min/1.73 m?? Hemogram Result Value Ref Range WBC 15.4 (H) 4.0 - 9.5 x10(3)/mcL RBC 4.95 4.58 - 5.54 x10(6)/mcL Hemoglobin 15.1 13.7 - 16.5 g/dL Hematocrit 44.7 40.5 - 48.5 % MCV 90.3 82.9 - 93.1 fL MCH 30.5 27.5 - 32.1 pg MCHC 33.8 32.0 - 35.7 g/dL Platelets 266 145 - 357 x10(3)/mcL RDWSD 48.7 (H) 36.0 - 45.0 fL RDWCV 14.9 (H) 11.4 - 13.8 % MPV 10.0 7.6 - 12.9 fL nRBC % Auto 0.0 % nRBC Abs Auto 0.000 0.000 - 0.000 x10(3)/mcL Differential, Automated Result Value Ref Range Neutrophils % 69.5 % Neutr Abs (ANC) 10.71 (H) 1.70 - 6.10 x10(3)/mcL Lymphocytes % 16.4 % Lymphocytes Abs 2.5 0.9 - 3.2 x10(3)/mcL Monocytes % 9.5 % Monocyte Abs 1.5 (H) 0.3 - 0.9 x10(3)/mcL Eosinophils % 1.7 % Eosinophils Abs 0.3 0.0 - 0.4 x10(3)/mcL Basophils % 0.4 % Basophils Abs 0.1 0.0 - 0.1 x10(3)/mcL Immature Gran % 2.50 % Beba Gran Abs 0.39 (H) 0.00 - 0.04 x10(3)/mcL Blue Tube HOLD Result Value Ref Range Blue Hold Sample in lab. Gold Tube HOLD Result Value Ref Range Gold Hold Sample in lab. COVID-19 PCR Specimen: Nasopharyngeal Swab Symptoms->Surveillance Result Value Ref Range SARS-CoV-2 RNA PCR Not Detected Not Detected SARS-CoV-2 Source SALES SERVICE TECHNICIAN Swab Basic Metabolic Panel (non-fasting) Result Value Ref Range Glucose Lvl 154 65 - 199 mg/dL BUN 28 (H) 10 - 20 mg/dL Creatinine 0.93 0.80 - 1.50 mg/dL Sodium 132 (L) 135 - 145 mmol/L Potassium 4.4 3.5 - 5.0 mmol/L Chloride 100 98 - 107 mmol/L CO2 19 (L) 22 - 31 mmol/L Anion Gap 13 5 - 15 mmol/L Calcium 8.3 (L) 8.5 - 10.5 mg/dL Estimated GFR 81 >=60 mL/min/1.73 m?? Hepatic Function Panel Result Value Ref Range Total Protein 5.5 (L) 6.1 - 8.0 g/dL Albumin 3.3 3.2 - 5.2 g/dL AST 17 0 - 39 unit/L ALT 28 0 - 55 unit/L Alk Phos 100 40 - 130 unit/L Total Bilirubin 0.3 0.2 - 1.3 mg/dL Bili, Direct 0.1 0.0 - 0.3 mg/dL Ammonia Result Value Ref Range Ammonia 33 16 - 60 mcmol/L Hemogram Result Value Ref Range WBC 9.8 (H) 4.0 - 9.5 x10(3)/mcL RBC 4.35 (L) 4.58 - 5.54 x10(6)/mcL Hemoglobin 13.2 (L) 13.7 - 16.5 g/dL Hematocrit 39.3 (L) 40.5 - 48.5 % MCV 90.3 82.9 - 93.1 fL MCH 30.3 27.5 - 32.1 pg MCHC 33.6 32.0 - 35.7 g/dL Platelets 217 145 - 357 x10(3)/mcL RDWSD 48.8 (H) 36.0 - 45.0 fL RDWCV 14.9 (H) 11.4 - 13.8 % MPV 9.9 7.6 - 12.9 fL nRBC % Auto 0.0 % nRBC Abs Auto 0.000 0.000 - 0.000 x10(3)/mcL Differential, Automated Result Value Ref Range Neutrophils % 85.3 % Neutr Abs (ANC) 8.39 (H) 1.70 - 6.10 x10(3)/mcL Lymphocytes % 8.7 % Lymphocytes Abs 0.9 0.9 - 3.2 x10(3)/mcL Monocytes % 1.7 % Monocyte Abs 0.2 (L) 0.3 - 0.9 x10(3)/mcL Eosinophils % 0.0 % Eosinophils Abs 0.0 0.0 - 0.4 x10(3)/mcL Basophils % 0.4 % Basophils Abs 0.0 0.0 - 0.1 x10(3)/mcL Immature Gran % 3.90 % Beba Gran Abs 0.38 (H) 0.00 - 0.04 x10(3)/mcL Associated attestation - Asa Feng MD - 07/22/2021 5:02 PM EDT I saw and examined Ilir Laird. I discussed the case with Dr. Andrade and the assessment and plan were formulated with my input. I have independently reviewed lab, pathology, and radiology results andpersonally reviewed the imaging. I have read the note and agree with the history, exam, events, and plan as stated. Relatively small extracranial tumor burden. 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 Recommendations: - WBRT as per Rad Onc - Agree with palliative care involvement. He seems realistic (I know this can't be cured) but hopeful of some improvement in his functional status and more time with his family. - Final path still pending. Also await the NGS results - I will arrange for followup at [facility] to discuss palliative systemic therapy. May require some rehabilitation following his WBRT. Asa Feng MD, MS 07/22/2021 Thoracic Oncology [facility] Consult Note - Keo Dobbs DO - 07/22/2021 7:54 AM EDT Images from the original note were not included. Neurology Inpatient Consult Note Patient name:Ilir Laird Date of :1945 Admit date: 07/21/2021 Attending: Dr. Chow CC: Seizures? ID:Ilir Laird is a 75 y.o. male with pmhx of Metastatic NSCLC to the brain s/p debulking, CAD, HLDwho presents to the ED for right sided weakness. Neurology is consulted for ongoing seizures. Interval events: -Patient admitted yesterday for right sided weakness after having right sided twitching + arm/leg movement without impaired awareness -Seizure was aborted with ativan -no seizures since even yesterday -weakness is improved since yesterday per pt Past Medical History: Past Medical History: Diagnosis Date ??? CAD (coronary artery disease) s/p CABG 2018 ??? High cholesterol ??? Hypertension ??? Tobacco use Past Surgical History: Procedure Laterality Date ??? PRO EXCIS SUPRATENT BRAIN TUMOR Left 06/30/2021 @CRANI, FOR TUMOR, SUPRATENTORIAL, NOT MENINGIOMA (WRVU 30.83) performed by Darian Justice MD at [facility] MAIN OR ??? PRO MICROSURG TECHNIQUES, REQ OPER MICROSCOPE N/A 06/30/2021 MICROSCOPE USE (WRVU 3.46) performed by Darian uJstice MD at [facility] MAIN OR ??? PRO STEREOTACTIC CPTR ASSTD PX CRANIAL, INTRADURAL N/A 06/30/2021 STEREOTACTIC COMPUTER-ASSTD NAVIGATIONAL CRANIAL INTRADURAL (WRVU 3.75) performed by Darian Justice MD at [facility] MAIN OR Medications: Scheduled Meds: ??? atorvastatin 80 mg Oral QPM ??? levETIRAcetam 1,500 mg Oral BID ??? metoprolol tartrate 12.5 mg Oral BID ??? pantoprazole EC 40 mg Oral Daily ??? sodium chloride 1 g Oral TID ??? dexamethasone inj 6 mg Intravenous Q6H CORIN ??? sodium chloride 0.9 % (flush) 5 mL Intravenous BID ??? heparin (porcine) 5,000 Units Subcutaneous Q8H CORIN ??? divalproex EC 500 mg Oral BID Continuous Infusions: PRN Meds:. Allergies: Allergies Allergen Reactions ??? Cis Free Text Allergy Environmental. CIS - Allergic Rhinitis Family history: Family History Problem Relation Age of Onset ??? Heart Disease Mother ??? Cerebrovascular Accident Father Social history: Social History Socioeconomic History ??? Marital status: Spouse name: Not on file ??? Number of children: Not on file ??? Years of education: Not on file ??? Highest education level: Not on file Occupational History ??? Not on file Tobacco Use ??? Smoking status: Former Smoker Packs/day: 1.00 Years: 30.00 Pack years: 30.00 ??? Smokeless tobacco: Former User Quit date: 06/24/2021 ??? Tobacco comment: Quit 5 days ago Vaping Use ??? Vaping Use: Never used Substance and Sexual Activity ??? Alcohol use: Yes Alcohol/week: 3.0 standard drinks Types: 3 Cans of beer per week Comment: Not recently ??? Drug use: Never ??? Sexual activity: Not Currently Other Topics Concern ??? Not on file Social History Narrative ??? Not on file Social Determinants of Health Financial Resource Strain: Not on file Food Insecurity: Not on file Transportation Needs: Not on file Physical Activity: Not on file Housing Stability: Not on file Review of systems: Constitutional: No fevers or chills Eyes: No vision changes, no diplopia, no blurry vision ENT: No rhinorrhea or pharyngitis, no meningismus CV: No chest pain or palpitations Resp: No cough, no shortness of breath GI: No nausea, vomiting, diarrhea or constipation : No dysuria, no incontinence Heme: No bleeding or bruising Endo: No diabetes or thyroid disease Neuro: See HPI Psych: No depression, normal sleep [x] Review of systems otherwise negative Physical Exam: Patient Vitals for the past 24 hrs: Temp Heart Rate From SP02 Pulse Resp BP SpO2 O2 Device 07/21/21 1039 36.5 ??C (97.7 ??F) -- 65 16 150/72 96 % RA 07/21/21 1100 -- -- 62 15 128/74 95 % -- 07/21/21 1115 -- -- 63 15 136/73 96 % -- 07/21/21 1130 -- -- 61 16 140/74 94 % -- 07/21/21 1145 -- -- 68 14 147/84 96 % -- 07/21/21 1200 -- -- 64 17 113/67 95 % -- 07/21/21 1215 -- -- 63 14 136/78 96 % -- 07/21/21 1245 -- -- 63 17 114/59 94 % -- 07/21/21 1300 -- -- 65 16 123/57 94 % -- 07/21/21 1315 -- -- 63 13 131/68 94 % -- 07/21/21 1330 -- -- 65 12 119/70 95 % -- 07/21/21 1345 -- -- 72 20 (!) 145/100 94 % -- 07/21/21 1400 -- -- 62 14 118/70 95 % -- 07/21/21 1415 -- -- 63 13 116/57 94 % -- 07/21/21 1430 -- -- 67 13 116/73 96 % -- 07/21/21 1445 -- -- 65 22 (!) 132/111 95 % -- 07/21/21 1500 -- -- 67 16 122/63 95 % -- 07/21/21 1700 -- -- 79 13 142/75 95 % -- 07/21/21 1715 -- -- 74 15 120/81 92 % -- 07/21/21 1730 -- -- 75 14 125/84 91 % -- 07/21/21 1745 -- -- 71 18 119/69 91 % -- 07/21/21 1800 -- -- 66 15 117/72 92 % -- 07/21/21 1815 -- -- 69 16 145/62 -- -- 07/21/21 1830 -- -- 78 20 118/89 96 % -- 07/21/21 1845 -- -- 81 16 127/66 93 % -- 07/21/211999 -- -- (!) 103 20 -- 93 % -- 07/21/212029 -- -- 82 16 -- 92 % -- 07/21/210 36.7 ??C (98 ??F) -- -- 17 122/68 94 % RA 07/21/21 2215 -- -- 71 13 -- -- -- 07/21/21 2224 36.7 ??C (98.1 ??F) -- -- 14 120/65 93 % RA 07/21/21 2249 36.7 ??C (98.1 ??F) 65 bpm -- 16 126/71 94 % RA 07/22/21 0324 36.7 ??C (98.1 ??F) 64 bpm -- 16 125/74 94 % RA General: alert, NAD Ext: no edema, adequate pulses Neuro exam: MS: Awake, alert, oriented to person, place, year, month No dysarthria, language fluent, cooperative with neuro exam, attention intact able to do months of year backwards, short term recall 3/3, delayed recall 2/3 CN: Pupils R>L 4/3, EOMI, visual sherwood full to confrontation Facial sensation intact No facial asymmetry Hearing intact to voice Palate elevates symmetrically, tongue protrudes midline SCM and trap strength intact Motor: Normal bulk and tone. Hand rolling intact. UE: 2/5 R, 5/5 L Arm abduction at shoulder 4/5 R, 5/5 L Elbow extension 3/5 R, 5/5 L Elbow flexion 4/5 R, 5/5 L Chief Innovation Officer LE: 2/5 R, 5/5 L Hip flexion 3/5 R, 5/5 L Knee extension 3/5 R, 5/5 L Knee flexion 2/5 R, 5/5 L Foot dorsiflexion 3/5 R, 5/5 L Foot plantar flexion Sensation: Impaired over RLE Reflexes: DTRs 2+ R, 2+ L Biceps 2+ R, 2+ L Brachioradialis 2+ R, 2+ L Triceps 2+ R, 2+ L Patellar 2+ R, 2+ L Achilles tendon Coordination: Finger to nose intact, no dysmetria on L, intention tremor Gait: Deferred Labs: Recent Results (from the past 24 hour(s)) POCT Glucose Result Value Ref Range POC Glucose 106 65 - 199 mg/dL Basic Metabolic Panel (non-fasting) Result Value Ref Range Glucose Lvl 116 65 - 199 mg/dL BUN 28 (H) 10 - 20 mg/dL Creatinine 0.96 0.80 - 1.50 mg/dL Sodium 135 135 - 145 mmol/L Potassium 4.0 3.5 - 5.0 mmol/L Chloride 99 98 - 107 mmol/L CO2 21 (L) 22 - 31 mmol/L Anion Gap 15 5 - 15 mmol/L Calcium 8.5 8.5 - 10.5 mg/dL Estimated GFR 78 >=60 mL/min/1.73 m?? Hemogram Result Value Ref Range WBC 15.4 (H) 4.0 - 9.5 x10(3)/mcL RBC 4.95 4.58 - 5.54 x10(6)/mcL Hemoglobin 15.1 13.7 - 16.5 g/dL Hematocrit 44.7 40.5 - 48.5 % MCV 90.3 82.9 - 93.1 fL MCH 30.5 27.5 - 32.1 pg MCHC 33.8 32.0 - 35.7 g/dL Platelets 266 145 - 357 x10(3)/mcL RDWSD 48.7 (H) 36.0 - 45.0 fL RDWCV 14.9 (H) 11.4 - 13.8 % MPV 10.0 7.6 - 12.9 fL nRBC % Auto 0.0 % nRBC Abs Auto 0.000 0.000 - 0.000 x10(3)/mcL Differential, Automated Result Value Ref Range Neutrophils % 69.5 % Neutr Abs (ANC) 10.71 (H) 1.70 - 6.10 x10(3)/mcL Lymphocytes % 16.4 % Lymphocytes Abs 2.5 0.9 - 3.2 x10(3)/mcL Monocytes % 9.5 % Monocyte Abs 1.5 (H) 0.3 - 0.9 x10(3)/mcL Eosinophils % 1.7 % Eosinophils Abs 0.3 0.0 - 0.4 x10(3)/mcL Basophils % 0.4 % Basophils Abs 0.1 0.0 - 0.1 x10(3)/mcL Immature Gran % 2.50 % Beba Gran Abs 0.39 (H) 0.00 - 0.04 x10(3)/mcL Blue Tube HOLD Result Value Ref Range Blue Hold Sample in lab. Gold Tube HOLD Result Value Ref Range Gold Hold Sample in lab. COVID-19 PCR Specimen: Nasopharyngeal Swab Symptoms->Surveillance Result Value Ref Range SARS-CoV-2 RNA PCR Not Detected Not Detected SARS-CoV-2 Source SALES SERVICE TECHNICIAN Swab Basic Metabolic Panel (non-fasting) Result Value Ref Range Glucose Lvl 154 65 - 199 mg/dL BUN 28 (H) 10 - 20 mg/dL Creatinine 0.93 0.80 - 1.50 mg/dL Sodium 132 (L) 135 - 145 mmol/L Potassium 4.4 3.5 - 5.0 mmol/L Chloride 100 98 - 107 mmol/L CO2 19 (L) 22 - 31 mmol/L Anion Gap 13 5 - 15 mmol/L Calcium 8.3 (L) 8.5 - 10.5 mg/dL Estimated GFR 81 >=60 mL/min/1.73 m?? Hepatic Function Panel Result Value Ref Range Total Protein 5.5 (L) 6.1 - 8.0 g/dL Albumin 3.3 3.2 - 5.2 g/dL AST 17 0 - 39 unit/L ALT 28 0 - 55 unit/L Alk Phos 100 40 - 130 unit/L Total Bilirubin 0.3 0.2 - 1.3 mg/dL Bili, Direct 0.1 0.0 - 0.3 mg/dL Ammonia Result Value Ref Range Ammonia 33 16 - 60 mcmol/L Hemogram Result Value Ref Range WBC 9.8 (H) 4.0 - 9.5 x10(3)/mcL RBC 4.35 (L) 4.58 - 5.54 x10(6)/mcL Hemoglobin 13.2 (L) 13.7 - 16.5 g/dL Hematocrit 39.3 (L) 40.5 - 48.5 % MCV 90.3 82.9 - 93.1 fL MCH 30.3 27.5 - 32.1 pg MCHC 33.6 32.0 - 35.7 g/dL Platelets 217 145 - 357 x10(3)/mcL RDWSD 48.8 (H) 36.0 - 45.0 fL RDWCV 14.9 (H) 11.4 - 13.8 % MPV 9.9 7.6 - 12.9 fL nRBC % Auto 0.0 % nRBC Abs Auto 0.000 0.000 - 0.000 x10(3)/mcL Differential, Automated Result Value Ref Range Neutrophils % 85.3 % Neutr Abs (ANC) 8.39 (H) 1.70 - 6.10 x10(3)/mcL Lymphocytes % 8.7 % Lymphocytes Abs 0.9 0.9 - 3.2 x10(3)/mcL Monocytes % 1.7 % Monocyte Abs 0.2 (L) 0.3 - 0.9 x10(3)/mcL Eosinophils % 0.0 % Eosinophils Abs 0.0 0.0 - 0.4 x10(3)/mcL Basophils % 0.4 % Basophils Abs 0.0 0.0 - 0.1 x10(3)/mcL Immature Gran % 3.90 % Beba Gran Abs 0.38 (H) 0.00 - 0.04 x10(3)/mcL Diagnostic Tests and Imaging: FINDINGS: Prior left frontal and left parietal craniotomy changes again seen. ?? Interval recurrence of metastases in the left frontal and medial left parietal resection site as noted previously with lesions that measure up to 2.7 cm and 3.8 cm respectively in the axial plane. Mild increased edema about the left parietal lobe lesion and decreased edema about the left frontal lobe lesion. ?? There is also been mild interval enlargement of 2 metastatic lesions in the posterior right frontal lobe that measure up to 2.2 and 1.1 cm in the axial plane, previously 1.4 and 0.5 cm. ?? There is also a new lesion in the anteromedial left temporal lobe that measures 0.4 cm. ?? Mild dural enhancement is noted in the left parietal and anterior left frontal regions, nonspecific. ?? Minimal [id number] midline shift with no uncal herniation or downward transtentorial herniation. ?? Stable small arachnoid cyst in the anterior aspect of the right middle fossa. ? IMPRESSION 1. 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 2. Mild interval enlargement of 2 posterior right frontal metastatic lesions and a new subcentimeter metastatic lesion in the anteromedial left temporal lobe. ?? Assessment: Ilir Laird is a 75 y.o. 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 Neurology is consulted for ongoing seizures. He has significant right sided weakness with decreased sensation over RLE. MRI showed metastatic reoccurence on the left with interval enlargement of 2 posterior right frontal metastatic lesions and new subcentimeter lesion in anteromedial left temproal love. Patient's history consistent with focal status aborted with ativan. Patient now on keppra 1.5g BIDand depakote 500mg BID. LFT's obtained were wnl and depakote level to be drawn prior to AM dose tomorrow. Patient is receiving decadron 6mg q6hr. If there is ongoing concern for seizures can obtain cVEEG monitoring. Recommendations: -Consider cVEEG if concern for ongoing seizures -C/W Keppra 1.5g BID - Depakote 500mg BID -Obtain LFTs -Depakote level 07/23 30 min prior to morning dose -C/W Decadron for edema ?? X Consult service will continue to follow patient. Recommendations are above, please page if further consultation required. ?? Keo Dobbs, 07/22/2021 Consult Neurology Pager [phone] Associated attestation - Wally Chow MD - 07/22/2021 12:17 PM EDT Neurology Attending Attestation: I have seen the patient and reviewed the resident's above history and I agree with the details as written. My physical examination confirms the resident's pertinent findings. The assessment and plan were formulated in discussion with me and I agree with them as documented. Please see my initial attestation from the H&P 07/21. Wally Chow MD [facility] Department of Neurology Consult Note - Polina Blackwell MD - 07/21/2021 5:07 PM EDT Images from the original note were not included. Neurology Inpatient Consult Note Patient name:Ilir Laird Date of :1945 Admit date: 07/21/2021 Attending: Dr. Chow CC: Seizures? HPI: Ilir Laird is a 75 y.o. 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 Neurology is consulted for ongoing seizures. History is taken from chart review and from patient/family. Patient had recently returned from rehab s/p craniand was doing well. However after falling sleep last night he was unable to move the right side of his body and it felt numb. His daughter helped him go to the bathroom and then he fell back asleep andthen fell off the couch due to weakness and was brought in early this morning over concern for seizures. On arrival, he started to have jerking of his right side mainly arm > leg and was given ativan which did relieve the symptoms. Keppra was recently increased to 1500mg BID. He states he has aboutone twitching episode a day at home but this one lasted quite long about ~30 minutes. He was found to have recurrence of his previously resected metastatic lesions and enlargement of two others. Past Medical History: Past Medical History: Diagnosis Date ??? CAD (coronary artery disease) s/p CABG 2018 ??? High cholesterol ??? Hypertension ??? Tobacco use Past Surgical History: Procedure Laterality Date ??? PRO EXCIS SUPRATENT BRAIN TUMOR Left 06/30/2021 @CRANI, FOR TUMOR, SUPRATENTORIAL, NOT MENINGIOMA (WRVU 30.83) performed by Darian Justice MD at [facility] MAIN OR ??? PRO MICROSURG TECHNIQUES, REQ OPER MICROSCOPE N/A 06/30/2021 MICROSCOPE USE (WRVU 3.46) performed by Darian Justice MD at [facility] MAIN OR ??? PRO STEREOTACTIC CPTR ASSTD PX CRANIAL, INTRADURAL N/A 06/30/2021 STEREOTACTIC COMPUTER-ASSTD NAVIGATIONAL CRANIAL INTRADURAL (WRVU 3.75) performed by Darian Justice MD at [facility] MAIN OR Medications: Scheduled Meds: ??? levETIRAcetam 1 g Intravenous Once Continuous Infusions: PRN Meds:. Allergies: Allergies Allergen Reactions ??? Cis Free Text Allergy Environmental. CIS - Allergic Rhinitis Family history: Family History Problem Relation Age of Onset ??? Heart Disease Mother ??? Cerebrovascular Accident Father Social history: Social History Socioeconomic History ??? Marital status: Spouse name: Not on file ??? Number of children: Not on file ??? Years of education: Not on file ??? Highest education level: Not on file Occupational History ??? Not on file Tobacco Use ??? Smoking status: Former Smoker Packs/day: 1.00 Years: 30.00 Pack years: 30.00 ??? Smokeless tobacco: Former User Quit date: 06/24/2021 ??? Tobacco comment: Quit 5 days ago Vaping Use ??? Vaping Use: Never used Substance and Sexual Activity ??? Alcohol use: Yes Alcohol/week: 3.0 standard drinks Types: 3 Cans of beer per week Comment: Not recently ??? Drug use: Never ??? Sexual activity: Not Currently Other Topics Concern ??? Not on file Social History Narrative ??? Not on file Social Determinants of Health Financial Resource Strain: Not on file Food Insecurity: Not on file Transportation Needs: Not on file Physical Activity: Not on file Housing Stability: Not on file Review of systems: Constitutional: No fevers or chills Eyes: No vision changes, no diplopia, no blurry vision ENT: No rhinorrhea or pharyngitis, no meningismus CV: No chest pain or palpitations Resp: No cough, no shortness of breath GI: No nausea, vomiting, diarrhea or constipation : No dysuria, no incontinence Heme: No bleeding or bruising Endo: No diabetes or thyroid disease Neuro: See HPI Psych: No depression, normal sleep [x] Review of systems otherwise negative Physical Exam: Patient Vitals for the past 24 hrs: Temp Pulse Resp BP SpO2 O2 Device 07/21/21 1039 36.5 ??C (97.7 ??F) 65 16 150/72 96 % RA 07/21/21 1100 -- 62 15 128/74 95 % -- 07/21/21 1115 -- 63 15 136/73 96 % -- 07/21/21 1130 -- 61 16 140/74 94 % -- 07/21/21 1145 -- 68 14 147/84 96 % -- 07/21/21 1200 -- 64 17 113/67 95 % -- 07/21/21 1215 -- 63 14 136/78 96 % -- 07/21/21 1245 -- 63 17 114/59 94 % -- 07/21/21 1300 -- 65 16 123/57 94 % -- 07/21/21 1315 -- 63 13 131/68 94 % -- 07/21/21 1330 -- 65 12 119/70 95 % -- 07/21/21 1345 -- 72 20 (!) 145/100 94 % -- 07/21/21 1400 -- 62 14 118/70 95 % -- 07/21/21 1415 -- 63 13 116/57 94 % -- 07/21/21 1430 -- 67 13 116/73 96 % -- 07/21/21 1445 -- 65 22 (!) 132/111 95 % -- 07/21/21 1500 -- 67 16 122/63 95 % -- General: alert, NAD Ext: no edema, adequate pulses Neuro exam: MS: Awake, alert, oriented to person, place, year, month No dysarthria, language fluent, cooperative with neuro exam CN: Pupils R>L 4/3, EOMI, visual sherwood full to confrontation Facial sensation intact No facial asymmetry Hearing intact to voice Palate elevates symmetrically, tongue protrudes midline SCM and trap strength intact Motor: Normal bulk and tone. No pronator drift. Hand rolling intact. UE: 3/5 R, 5/5 L Arm abduction at shoulder 3/5 R, 5/5 L Elbow extension 3/5 R, 5/5 L Elbow flexion 2/5 R, 5/5 L Chief Innovation Officer LE: 2/5 R, 5/5 L Hip flexion 3/5 R, 5/5 L Knee extension 2/5 R, 5/5 L Knee flexion 2/5 R, 5/5 L Foot dorsiflexion 3/5 R, 5/5 L Foot plantar flexion Sensation: Impaired over RLE Reflexes: DTRs 2+ R, 2+ L Biceps 2+ R, 2+ L Brachioradialis 2+ R, 2+ L Triceps 2+ R, 2+ L Patellar 2+ R, 2+ L Achilles tendon Coordination: Finger to nose intact, no dysmetria on L Gait: Deferred Labs: Recent Results (from the past 24 hour(s)) POCT Glucose Result Value Ref Range POC Glucose 106 65 - 199 mg/dL Basic Metabolic Panel (non-fasting) Result Value Ref Range Glucose Lvl 116 65 - 199 mg/dL BUN 28 (H) 10 - 20 mg/dL Creatinine 0.96 0.80 - 1.50 mg/dL Sodium 135 135 - 145 mmol/L Potassium 4.0 3.5 - 5.0 mmol/L Chloride 99 98 - 107 mmol/L CO2 21 (L) 22 - 31 mmol/L Anion Gap 15 5 - 15 mmol/L Calcium 8.5 8.5 - 10.5 mg/dL Estimated GFR 78 >=60 mL/min/1.73 m?? Hemogram Result Value Ref Range WBC 15.4 (H) 4.0 - 9.5 x10(3)/mcL RBC 4.95 4.58 - 5.54 x10(6)/mcL Hemoglobin 15.1 13.7 - 16.5 g/dL Hematocrit 44.7 40.5 - 48.5 % MCV 90.3 82.9 - 93.1 fL MCH 30.5 27.5 - 32.1 pg MCHC 33.8 32.0 - 35.7 g/dL Platelets 266 145 - 357 x10(3)/mcL RDWSD 48.7 (H) 36.0 - 45.0 fL RDWCV 14.9 (H) 11.4 - 13.8 % MPV 10.0 7.6 - 12.9 fL nRBC % Auto 0.0 % nRBC Abs Auto 0.000 0.000 - 0.000 x10(3)/mcL Differential, Automated Result Value Ref Range Neutrophils % 69.5 % Neutr Abs (ANC) 10.71 (H) 1.70 - 6.10 x10(3)/mcL Lymphocytes % 16.4 % Lymphocytes Abs 2.5 0.9 - 3.2 x10(3)/mcL Monocytes % 9.5 % Monocyte Abs 1.5 (H) 0.3 - 0.9 x10(3)/mcL Eosinophils % 1.7 % Eosinophils Abs 0.3 0.0 - 0.4 x10(3)/mcL Basophils % 0.4 % Basophils Abs 0.1 0.0 - 0.1 x10(3)/mcL Immature Gran % 2.50 % Beba Gran Abs 0.39 (H) 0.00 - 0.04 x10(3)/mcL Blue Tube HOLD Result Value Ref Range Blue Hold Sample in lab. Gold Tube HOLD Result Value Ref Range Gold Hold Sample in lab. Diagnostic Tests and Imaging: FINDINGS: Prior left frontal and left parietal craniotomy changes again seen. ?? Interval recurrence of metastases in the left frontal and medial left parietal resection site as noted previously with lesions that measure up to 2.7 cm and 3.8 cm respectively in the axial plane. Mild increased edema about the left parietal lobe lesion and decreased edema about the left frontal lobe lesion. ?? There is also been mild interval enlargement of 2 metastatic lesions in the posterior right frontal lobe that measure up to 2.2 and 1.1 cm in the axial plane, previously 1.4 and 0.5 cm. ?? There is also a new lesion in the anteromedial left temporal lobe that measures 0.4 cm. ?? Mild dural enhancement is noted in the left parietal and anterior left frontal regions, nonspecific. ?? Minimal [id number] midline shift with no uncal herniation or downward transtentorial herniation. ?? Stable small arachnoid cyst in the anterior aspect of the right middle fossa. ? IMPRESSION 1. 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 2. Mild interval enlargement of 2 posterior right frontal metastatic lesions and a new subcentimeter metastatic lesion in the anteromedial left temporal lobe. ?? Assessment: Ilir Laird is a 75 y.o. 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 Neurology is consulted for ongoing seizures. His examination is significant for right sided weakness and numbness which is new. His MRI unfortunately showed interval metastatic recurrence on the left side along with interval enlargement of 2 posterior right frontal metastatic lesions and a new subcentimeter metastatic lesion in the anteromedial left temporal lobe. His presentation earlier can be consistent with proabable focal status that was aborted by the administration of ativan. He currently is maintained on Keppra 1500mg BID which was recently increased. Would recommend adding on another agent like Depakote for continue seizure control. If there is ongoing concern for seizures can obtain cVEEG monitoring. Would also recommend GOC conversation given extensive metastatic disease. Recommendations: -Consider cVEEG if concern for ongoing seizures -C/W Keppra 1.5g BID -Add on Depakote 500mg BID -Obtain LFTs -Depakote level 07/22 30 min prior to evening dose -C/W Decadron for edema Plan discussed with Dr. Driscoll ?? X Consult service will continue to follow patient. Recommendations are above, please page if further consultation required. ?? Polina Blackwell MD 07/21/2021 Consult Neurology Pager [phone] Associated attestation - Wally Chow MD - 07/22/2021 11:20 AM EDT Neurology Attending Attestation: I have seen the patient and reviewed Dr. Blackwell's above history and I agree with the details as written. My physical examination confirms the resident's pertinent findings. The assessment and plan wereformulated in discussion with me and I agree with them as documented. Right focal motor seizures secondary to left > right bihemispheric metastatic disease w/ significant cortical/subcortical edema. Reviewed MR images, pre-, post-op, and most recent which shows ongoing tumor progression. Had a seizure while in the CT scan yesterday described as uncontrollable twitching shaking of the right arm progressing to his chest. He had retained awareness. He has been having progressive weakness of the right arm and leg. CNII-XII intact. Mental status is appropriate and patient is alert and oriented. Right shoulder abduction 2/5 and not anti-gravity, however 4/5 elbow flexion and extension, and sales contracts analyst strength is at least 4/5 which is improved compared to yesterday per family. Right hip flexion is 3/5, able to hold up ~4-5 seconds, knee extension 5-/5, knee flexion 4/5, ankle flexion/plantarflexion was 3/5. Discussed that corticosteroids will help with his weakness and reducing edema related to tumor. Addition of Depakote to Keppra is appropriate. No need for cvEEG since seizures are clinical. Oncology will need to discuss with the patient and the family regarding treatment of tumor and metastatic disease. Wally Chow MD [facility] Department of Neurology Consult Note - Vivian Russell RPH - 07/21/2021 2:02 PM EDT Clinical Pharmacist Review; Vivian Russell RPH, PharmD Geriatric ED Medication Reconciliation Patient: Ilir Laird 75 y.o. male 1945 PCP: Myriam Riggins MD Pharmacy: [facility] Allergies and Drug intolerance: Allergies Allergen Reactions ??? Cis Free Text Allergy Environmental. CIS - Allergic Rhinitis Reconciled Medication List: No current facility-administered medications for this encounter. Current Outpatient Medications Medication Sig Dispense Refill ??? dexamethasone (Decadron) 4 mg Tablet Take 4 mg by mouth every 6 hours. Picked up 07/20 ??? levETIRAcetam (KEPPRA) 1,000 mg Tablet Take 1 tablet by mouth 2 times daily. (Patient taking differently: Take 1,500 mg by mouth 2 times daily.) 60 tablet 12 ??? metoprolol tartrate (Lopressor) 25 mg Tablet Take 0.5 tablets by mouth 2 times daily. 180 tablet3 ??? pantoprazole EC (Protonix) 40 mg Tablet, Delayed Release (E.C.) Take 1 tablet by mouth daily. 90tablet 3 ??? sodium chloride 1 gram Tablet Take 1 tablet by mouth 3 times daily. ??? atorvastatin (Lipitor) 80 mg Tablet Take 80 mg by mouth every evening. ??? multivitamin (THERAGRAN) Tablet Take 1 tablet by mouth daily. ??? acetaminophen (Tylenol) 325 mg Tablet Take 3 tablets by mouth every 8 hours as needed for Pain or Fever. 30 tablet 1 Medication list is up to date and reconciled Changes made to home medication list: 1. Additions: ?? None 2. Deletions: ?? None 3. Changes: ?? Dexamethasone recently increased to 4 mg every 6 hours ?? Levetiracetam increased to 1500 mg twice daily Medication-related problems identified: -Patient reports worsening weakness since starting the higher dose of dexamethasone. He did note he starts to feel better a few hours after taking dexamethasone but then feels worse once he takes his next scheduled dose. Myopathies are a potential adverse effect of dexamethasone especially for patients with multiple risk factors for neuromuscular effects including age, cancer, and smoking. Beer's List Review: None Pertinent Drug Interactions: none Patient experiencing side effects from medications? yes see above Vivian Russell RPH 07/21/21 Duration: 45 minutes Consult Note - Nasrin Garcia MD - 07/21/2021 2:00 PM EDT [facility] Consult Date: 07/21/2021 ID: Ilir Laird, 75 y.o. male : 1945 Admission Date: 07/21/2021 PCP: Myriam Riggins MD Consult information: Date & Time: 07/21/2021 4:02 PM Referring Service: ED Consulting Attending: Héctor Cuellar MD Neurosurgery Attending: Flory Buenrostro MD Place of Consult: [facility] ED CC/Reason for consult: right sided weakness with recurrence of multiple metastatic intracranial lesions History of Present Illness: Ilir Laird is a 75 y.o. right-handed with PMH tobacco use, CAD s/p CABG previously on ASA, who presented originally in June 2021 to OSH with 3-4 week history of initially RIGHT lower extremity weakness, inability to ambulate without assistance x1 week, and approximately 5 day history of RIGHT upper extremity weakness. ??MRI exhibited multiple bilateral intracranial lesions, the largest of which was in the LEFT frontal lobe with surrounding vasogenic edema concerning for metastases given a R hilarlung mass as well. Now s/p left frontal/parietal craniotomies for tumor resections (FS = NSCLC) on 07/01/21. Patient was discharged to [facility] 07/08 with referrals to oncology, radiation/oncology, neurology. Since had been feeling well until 07/13/21 at which time he experienced three episodes in succession ofRUE and RLE spasm/shaking and aphasia but retained consciousness. He was discharged on Decadron taper to complete this same day. Transfer center call from OSH for this, at which time patient increased back to 4mg Decadron q6h. Neurology consult at the time as well, increased Keppra to 1.5g BID. Patient was released from rehab yesterday and was at home, ambulating relatively well with a walker per patient and his 2 daughters. Since then for the past day or so RUE and RLE strength has been worseningto the point now that he relies on family to help him to the bathroom. After being evaluated in ED today with CT, patient experienced uncontrollable twitching and shaking of right arm (similar to events of one week ago) that was alleviated by 0.5mg IV Ativan. Presently denies headache, nausea, vomiting, numbness, paresthesias, LOC, difficulties with balance,visual or auditory symptoms. Denies bowel or bladder symptoms. Past Medical History: Past Medical History: Diagnosis Date ??? CAD (coronary artery disease) s/p CABG 2018 ??? High cholesterol ??? Hypertension ??? Tobacco use Patient Active Problem List Diagnosis Code ??? 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 Non-small cell carcinoma of lung C34.90 ??? Cigarette nicotine dependence with withdrawal F17.213 ??? CAD (coronary artery disease), HLD I25.10 ??? Hyperglycemia R73.9 ??? Hyponatremia E87.1 Past Surgical History: Past Surgical History: Procedure Laterality Date ??? PRO EXCIS SUPRATENT BRAIN TUMOR Left 06/30/2021 @CRANI, FOR TUMOR, SUPRATENTORIAL, NOT MENINGIOMA (WRVU 30.83) performed by Darian Justice MD at [facility] MAIN OR ??? PRO MICROSURG TECHNIQUES, REQ OPER MICROSCOPE N/A 06/30/2021 MICROSCOPE USE (WRVU 3.46) performed by Darian Justice MD at [facility] MAIN OR ??? PRO STEREOTACTIC CPTR ASSTD PX CRANIAL, INTRADURAL N/A 06/30/2021 STEREOTACTIC COMPUTER-ASSTD NAVIGATIONAL CRANIAL INTRADURAL (WRVU 3.75) performed by Darian Justice MD at [facility] MAIN OR Medications: No current facility-administered medications on file prior to encounter. Current Outpatient Medications on File Prior to Encounter Medication Sig Dispense Refill ??? dexamethasone (Decadron) 4 mg Tablet Take 4 mg by mouth every 6 hours. Picked up 07/20 ??? levETIRAcetam (KEPPRA) 1,000 mg Tablet Take 1 tablet by mouth 2 times daily. (Patient taking differently: Take 1,500 mg by mouth 2 times daily.) 60 tablet 12 ??? metoprolol tartrate (Lopressor) 25 mg Tablet Take 0.5 tablets by mouth 2 times daily. 180 tablet3 ??? pantoprazole EC (Protonix) 40 mg Tablet, Delayed Release (E.C.) Take 1 tablet by mouth daily. 90tablet 3 ??? sodium chloride 1 gram Tablet Take 1 tablet by mouth 3 times daily. ??? atorvastatin (Lipitor) 80 mg Tablet Take 80 mg by mouth every evening. ??? multivitamin (THERAGRAN) Tablet Take 1 tablet by mouth daily. ??? acetaminophen (Tylenol) 325 mg Tablet Take 3 tablets by mouth every 8 hours as needed for Pain or Fever. 30 tablet 1 Allergies: Allergies Allergen Reactions ??? Cis Free Text Allergy Environmental. CIS - Allergic Rhinitis Social History: Social History Socioeconomic History ??? Marital status: Spouse name: Not on file ??? Number of children: Not on file ??? Years of education: Not on file ??? Highest education level: Not on file Occupational History ??? Not on file Tobacco Use ??? Smoking status: Former Smoker Packs/day: 1.00 Years: 30.00 Pack years: 30.00 ??? Smokeless tobacco: Former User Quit date: 06/24/2021 ??? Tobacco comment: Quit 5 days ago Vaping Use ??? Vaping Use: Never used Substance and Sexual Activity ??? Alcohol use: Yes Alcohol/week: 3.0 standard drinks Types: 3 Cans of beer per week Comment: Not recently ??? Drug use: Never ??? Sexual activity: Not Currently Other Topics Concern ??? Not on file Social History Narrative ??? Not on file Social Determinants of Health Financial Resource Strain: Not on file Food Insecurity: Not on file Transportation Needs: Not on file Physical Activity: Not on file Housing Stability: Not on file Family History: Family History Problem Relation Age of Onset ??? Heart Disease Mother ??? Cerebrovascular Accident Father Review of Systems: Please see HPI for pertinent details. 12 point ROS is otherwise negative. Vital Signs: Visit Vitals BP (!) 132/111 Pulse 65 Temp 36.5 ??C (97.7 ??F) (Oral) Resp 22 Ht 172.7 cm (5' 8) Wt 79.4 kg (175 lb) SpO2 95% BMI 26.61 kg/m?? Physical Exam: General: Laying on side, tearful but able to answer questions and participate in exam. HEENT: Atraumatic, normocephalic. Neck supple, trachea midline. Cardiovascular: Regular rate and rhythm. Respiratory: Normal inspiratory effort on RA. Abdomen: Soft, non-tender, non-distended. Extremities: WWP, peripheral pulses are 2+ and equal bilaterally in upper and lower extremities. Neurological: Mental Status/Cognitive: GCS 15 Awake, alert, oriented x 3. Speech: Fluent, appropriate. Naming and repetition intact. Cranial Nerves: PERRL CN II: Visual acuity and sherwood grossly intact. CN III, IV, : EOMI. CN V: Sensation intact in V1, 2 and 3 distributions. CN VII: No facial asymmetry/droop. CN VIII: Intact hearing bilaterally to voice. CN IX, X: Palate and uvula rise in the midline. CN XI: Trapezius strength 5/5 bilaterally. CN XII: Tongue protrudes in the midline direction. Tone: Normal/appropriate, symmetric. Motor: No upper extremity drift. Segment Muscle Action Right Left C5 Deltoid Shoulder Abduction 0 5 C6 Biceps Elbow flexion 2 5 C6 Extensor carpi radialis Wrist extension 4+ 5 C7 Triceps Elbow extension 2 5 C8 Finger flexors Grasp 5 5 T1 Interossei Finger abduction 4+ 5 L2 Iliopsoas Hip flexion 2 5 L3 Quadriceps Knee extension 5 5 L4 Tibialis anterior Dorsiflexion 1 5 L5 Extensor hallucis longus Great toe extension 1 5 S1 Gastrocnemius Plantar flexion 1 5 Reflexes: Reflex Right Left Biceps 2+ 2+ Triceps 2+ 2+ BR 2+ 2+ Patellar 2+ 2+ Ankle Jerk 1+ 1+ Plantar response Downgoing Downgoing Granger's: negative Clonus: none Gait: Not assessed Sensation: Intact in C5-T1 dermatomes in bilateral upper extremities. Intact in L2-S1 dermatomes in bilateral lower extremities. Cerebellar: No dysmetria or dysdiadochokinesia on Left, unable to participate on R. No intention tremor. Labs: Recent Labs 07/21/21 1050 WBC 15.4* HGB 15.1 PLATELET 266 Recent Labs 07/21/21 1050 NA 135 K 4.0 CL 99 CO2 21* BUN 28* CREATININE 0.96 GLUCOSE 116 No results for input(s): PT, INR in the last 72 hours. No results for input(s): AST, ALT, BILITOT, ALKPHOS, ALB, PROT, LIPASE, AMYLASE in the last 72 hours. Imaging: CTH: Increased size of hyperdense metastases along both cerebral convexities. Increased left frontoparietal vasogenic edema, sulcal effacement and mass effect on the left lateral ventricle. Similar vasogenic edema surrounding the right frontal convexity lesions. Imaging independently reviewed. Assessment: Ilir Laird is a 75 y.o. male right-handed with PMH tobacco use, CAD s/p CABG, who presented originally in June 2021 to OSH with 3-4 week history of initially right upper and lower extremity weakness,??MRI exhibited multiple bilateral intracranial lesions, as well as R hilar lung mass. Now s/p left frontal/parietal craniotomies for tumor resections (FS = NSCLC) on 07/01/21. On exam, patient has marked increased weakness of the RUE and RLE. CTH showing short interval increase in size of known metastatic lesions bilaterally, with new lesions as well as increased cerebral edema when compared with CTH from ~one week ago. This indicates likely aggressive nature of his metastatic disease and though repeat surgical debulking is an option, discussed that this is not a cure for his problem. He will also require multidisciplinary care with the help of Radiation Oncology and Medical Oncology for XRT/chemo/immunotherapy to best treat his disease. Recommend repeat MRI brain wwo for further evaluation of his disease progression. Medicine admissionrecommended as well to help with coordination of oncologic care. Family has met with Palliative Carein the past and is interested in speaking with them this admission as well. Would also consider involving Neurology given his prior question of seizure for recommendations on ASM/EEG management. Plan/Recommendations: -MRI brain wwo -Close neurological observation, Q2H neuro checks -10mg IV Decadron now followed by 6mg Decadron IV q6h (though would defer to RadOnc if they feel different dosing appropriate) -Obtain serum Osm, if amenable can consider one time dose of mannitol 25-50g to evaluate response -Rec consults to Neurology (ASM/EEG), RadOnc, HemeOnc, Palliative care to help create multidisciplinary care team as well as admission to Hospital Medicine for coordination of care -BP control, keep SBP 90-160 -Rest of care per primary Today's plan of care was discussed with attending neurosurgeon, Flory Buenrostro MD. Nasrin Garcia MD 07/21/2021 4:02 PM [facility] Neurosurgery Inpatient Pager: [phone] There are no hospital problems to display for this patient. Active Non-Hospital Problems Diagnosis ??? Hyponatremia ??? Hyperglycemia ??? Non-small cell carcinoma of lung ??? Cigarette nicotine dependence with withdrawal ??? CAD (coronary artery disease), HLD ??? Brain metastasis, Vasogenic Edema, Seizure secondary to vasogenic edema and brain mass, neurological deficits Associated attestation - Flory Buenrostro MD - 07/25/2021 3:56 PM EDT I have seen and examined the patient, providing du components as outlined below. I have reviewed the resident???s note; my evaluation of the patient is below: 75 y.o. gentleman with known metastatic NSCLC to brain, s/p resection of left frontal and parietal mets by Dr. Justice approximately 3 weeks ago. He was recently discharged from rehab but noted to haveprogressive right hemiplegia, which resulted in repeat imaging with recurrence of his prior tumors and further neurologic progression. We discussed his options, and we are recommending WBRT to start urgently for palliative symptom control. He is also being started in high-dose steroids for cerebral edema. Given the aggressive behavior of his brain tumors, repeat resection may be low yield. This plan was discussed with Mr. Laird and his daughters. documented in this encounter Plan of Treatment Upcoming Encounters Date Type Specialty Care Team Description 09/13/2021 Hospital Encounter Radiology Curtis Laura MD [facility] [place] [address] (Wo rk) 10/07/2021 Office Visit Neurology Wally Chow MD [facility] [address] [place], [place] [address] (Wo rk) documented as of this encounter Procedures Procedure Name Priority Date/Time Associated Comments Diagnosis RAPID COVID-19 PCR Routine 08/10/2021 12:12 Resul ts for this ([facility]) PM EDT procedure are in the results section. BMP W/FASTING GLUCOSE Routine 08/08/2021 5:14 AM Results for this EDT procedure are i n the results section. SCAN, PERIPHERAL BLOOD Routine 08/08/2021 5:14 AM Results for this EDT procedure are i n the results section. HEMOGRAM Routine 08/08/2021 5:14 AM Results f or this EDT procedure are i n the results section. DIFFERENTIAL, Routine 08/08/2021 5:14 AM Results for this AUTOMATED EDT procedure are i n the results section. HC VENIPUNCTURE Routine 08/08/2021 5:14 AM EDT BMP W/FASTING GLUCOSE Routine 08/07/2021 2:00 AM Results for this EDT procedure are i n the results section. SCAN, PERIPHERAL BLOOD Routine 08/07/2021 2:00 AM Results for this EDT procedure are i n the results section. HEMOGRAM Routine 08/07/2021 2:00 AM Results f or this EDT procedure are i n the results section. DIFFERENTIAL, Routine 08/07/2021 2:00 AM Results for this AUTOMATED EDT procedure are i n the results section. HC CBC,PLT & AUTO DIFF Routine 08/07/2021 2:00 AM EDT HEMOGRAM Routine 08/06/2021 3:29 AM Results f or this EDT procedure are i n the results section. DIFFERENTIAL, Routine 08/06/2021 3:29 AM Results for this AUTOMATED EDT procedure are i n the results section. HC CBC,PLT & AUTO DIFF Routine 08/06/2021 3:29 AM EDT BASIC METABOLIC PANEL Routine 08/06/2021 3:29 AM Results for this (NON-FASTING) EDT procedure are in the results section. HC HIT SCREEN PF4 Routine 08/05/2021 12:08 Result s for this ANTIBODY PM EDT procedure are i n the results section. SCAN, PERIPHERAL BLOOD Routine 08/05/2021 4:12 AM Results for this EDT procedure are i n the results section. HEMOGRAM Routine 08/05/2021 4:12 AM Results f or this EDT procedure are i n the results section. DIFFERENTIAL, Routine 08/05/2021 4:12 AM Results for this AUTOMATED EDT procedure are i n the results section. HC CBC,PLT & AUTO DIFF Routine 08/05/2021 4:12 AM EDT HC VENIPUNCTURE Routine 08/05/2021 4:12 AM Result s for this EDT procedure are i n the results section. HC VENIPUNCTURE Routine 08/04/2021 4:23 AM Result s for this EDT procedure are i n the results section. HC VENIPUNCTURE Routine 08/03/2021 10:30 Results for this AM EDT procedure are i n the results section. HC VENIPUNCTURE Routine 08/02/2021 4:39 AM Result s for this EDT procedure are i n the results section. HEMOGRAM Routine 08/01/2021 3:12 AM Results f or this EDT procedure are i n the results section. DIFFERENTIAL, Routine 08/01/2021 3:12 AM Results for this AUTOMATED EDT procedure are i n the results section. HC CBC,PLT & AUTO DIFF Routine 08/01/2021 3:12 AM EDT BASIC METABOLIC PANEL Routine 08/01/2021 3:12 AM Results for this (NON-FASTING) EDT procedure are in the results section. HC VENIPUNCTURE Routine 07/31/2021 5:41 AM Result s for this EDT procedure are i n the results section. HC SODIUM, URINE Routine 07/30/2021 11:46 Results for this AM EDT procedure are i n the results section. HC OSMOLALITY URINE Routine 07/30/2021 11:46 Resu lts for this AM EDT procedure are i n the results section. SCAN, PERIPHERAL BLOOD Routine 07/30/2021 8:47 AM Results for this EDT procedure are i n the results section. HEMOGRAM Routine 07/30/2021 8:47 AM Results f or this EDT procedure are i n the results section. DIFFERENTIAL, Routine 07/30/2021 8:47 AM Results for this AUTOMATED EDT procedure are i n the results section. HC VENIPUNCTURE Routine 07/30/2021 8:47 AM EDT BASIC METABOLIC PANEL Routine 07/30/2021 8:47 AM Results for this (NON-FASTING) EDT procedure are in the results section. SCAN, PERIPHERAL BLOOD Routine 07/29/2021 7:24 AM Results for this EDT procedure are i n the results section. HEMOGRAM Routine 07/29/2021 7:24 AM Results f or this EDT procedure are i n the results section. DIFFERENTIAL, Routine 07/29/2021 7:24 AM Results for this AUTOMATED EDT procedure are i n the results section. HC CBC,PLT & AUTO DIFF Routine 07/29/2021 7:24 AM EDT HC VENIPUNCTURE Routine 07/29/2021 7:24 AM Result s for this EDT procedure are i n the results section. HEPATIC FUNCTION PANEL Routine 07/29/2021 7:24 AM Results for this EDT procedure are i n the results section. BASIC METABOLIC PANEL Routine 07/29/2021 7:24 AM Results for this (NON-FASTING) EDT procedure are in the results section. SCAN, PERIPHERAL BLOOD Routine 07/27/2021 5:04 AM Results for this EDT procedure are i n the results section. HEMOGRAM Routine 07/27/2021 5:04 AM Results f or this EDT procedure are i n the results section. DIFFERENTIAL, Routine 07/27/2021 5:04 AM Results for this AUTOMATED EDT procedure are i n the results section. HC CBC,PLT & AUTO DIFF Routine 07/27/2021 5:04 AM EDT HC VENIPUNCTURE Routine 07/27/2021 5:02 AM Result s for this EDT procedure are i n the results section. HEMOGRAM Routine 07/26/2021 4:28 AM Results f or this EDT procedure are i n the results section. DIFFERENTIAL, Routine 07/26/2021 4:28 AM Results for this AUTOMATED EDT procedure are i n the results section. HC CBC,PLT & AUTO DIFF Routine 07/26/2021 4:28 AM EDT HC PHOSPHORUS, SERUM Routine 07/26/2021 4:28 AM R esults for this EDT procedure are i n the results section. HC MAGNESIUM, SERUM Routine 07/26/2021 4:28 AM Re sults for this EDT procedure are i n the results section. HC VENIPUNCTURE Routine 07/26/2021 4:28 AM Result s for this EDT procedure are i n the results section. HEMOGRAM Routine 07/25/2021 11:44 Results for this AM EDT procedure are i n the results section. DIFFERENTIAL, Routine 07/25/2021 11:44 Results fo r this AUTOMATED AM EDT procedure are i n the results section. HC CBC,PLT & AUTO DIFF Routine 07/25/2021 11:44 AM EDT COMPREHENSIVE Routine 07/25/2021 11:44 Results fo r this METABOLIC PANEL AM EDT procedure ar e in (NON-FASTING) the results section. COVID-19 PCR Routine 07/24/2021 8:54 AM Results f or this EDT procedure are i n the results section. HC VENIPUNCTURE Routine 07/24/2021 6:47 AM Result s for this EDT procedure are i n the results section. HEMOGRAM Routine 07/24/2021 4:23 AM Results f or this EDT procedure are i n the results section. DIFFERENTIAL, Routine 07/24/2021 4:23 AM Results for this AUTOMATED EDT procedure are i n the results section. HC VENIPUNCTURE Routine 07/24/2021 4:23 AM EDT BASIC METABOLIC PANEL Routine 07/24/2021 4:23 AM Results for this (NON-FASTING) EDT procedure are in the results section. HC VALPROIC ACID Routine 07/23/2021 8:24 AM Resul ts for this EDT procedure are i n the results section. HEMOGRAM Routine 07/23/2021 4:57 AM Results f or this EDT procedure are i n the results section. DIFFERENTIAL, Routine 07/23/2021 4:57 AM Results for this AUTOMATED EDT procedure are i n the results section. HC CBC,PLT & AUTO DIFF Routine 07/23/2021 4:57 AM EDT HEPATIC FUNCTION PANEL Routine 07/23/2021 4:57 AM Results for this EDT procedure are i n the results section. BASIC METABOLIC PANEL Routine 07/23/2021 4:57 AM Results for this (NON-FASTING) EDT procedure are in the results section. 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 HEMOGRAM Routine 07/22/2021 4:59 AM Results f or this EDT procedure are i n the results section. DIFFERENTIAL, Routine 07/22/2021 4:59 AM Results for this AUTOMATED EDT procedure are i n the results section. HC CBC,PLT & AUTO DIFF Routine 07/22/2021 4:59 AM EDT HC AMMONIA, PLASMA Routine 07/22/2021 4:59 AM Res ults for this EDT procedure are i n the results section. HEPATIC FUNCTION PANEL Routine 07/22/2021 4:59 AM Results for this EDT procedure are i n the results section. BASIC METABOLIC PANEL Routine 07/22/2021 4:59 AM Results for this (NON-FASTING) EDT procedure are in the results section. RAPID COVID-19 PCR STAT 07/21/2021 5:00 PM Res ults for this ([facility]/APD/[facility]) EDT procedure are in the results section. MRI BRAIN WWO CONTRAST STAT 07/21/2021 3:51 PM Results for this (GENERIC) EDT procedure are i n the results section. CT HEAD WO CONTRAST STAT 07/21/2021 11:08 Resu lts for this (GENERIC) AM EDT procedure are i n the results section. HEMOGRAM STAT 07/21/2021 10:50 Results for this AM EDT procedure are i n the results section. DIFFERENTIAL, STAT 07/21/2021 10:50 Results fo r this AUTOMATED AM EDT procedure are i n the results section. GOLD TUBE HOLD STAT 07/21/2021 10:50 Results f or this AM EDT procedure are i n the results section. BLUE TUBE HOLD STAT 07/21/2021 10:50 Results f or this AM EDT procedure are i n the results section. HC CBC,PLT & AUTO DIFF STAT 07/21/2021 10:50 AM EDT BASIC METABOLIC PANEL STAT 07/21/2021 10:50 Re sults for this (NON-FASTING) AM EDT procedure are in the results section. POCT GLUCOSE Routine 07/21/2021 10:38 Results for this AM EDT procedure are i n the results section. documented in this encounter Results COVID-19 PCR (08/10/2021 12:12 PM EDT) [facility] Method Time Signature SARS-CoV-2 Not Detected Not Detected GABBY RNA PCR [facility] Comment: This result should be interpreted in com bination with the clinical observations, patient history and epidem iological information. For testing of asymptomatic individuals, assay performa nce characteristics and clinical utility have not been evaluated. Testing for SARS-CoV-2 (Severe acute respiratory syndrome coronavirus 2, form erly known as 2019 novel coronavirus or 2019-nCoV) to aid in the diagnosis of CO VID-19 is performed using the Simplexa COVID-19 Direct Assay by [employer] franks as authorized by the FDA issued Emergency Use Authorization (EUA). This assay is intended for In-vitro Diagnostic (IVD) use with nasopharyngeal swabs collected from individuals meeting the CDC criteria for testing. Th e assay is performed based on the instructions for use and additional guid ance provided by the FDA. Testing is performed in the Microbiology Laboratory within the Department of Pathology and Laboratory Medicine at [facility], certified under the Clinical Laboratory Improvement Amendmen ts of 1987 (CLIA), 42 U.S.C. section 263a, to perform high complexity tests. Assay performance has been verified according to clinical laboratory regulat ory requirements. Test results are provided above. A resul t of Not Detected indicates that the viral RNA target is not present but does not preclude SARS-CoV-2 infection. False negative results may occur if a sp ecimen is improperly collected, transported or handled; if amplification inhibitors are present; or if inadequate numbers of viral particles ar e present in the specimen. A result of Detected suggests a current or recent infection and the patient is presumed to be infected. Positive and negative pr edictive values for this test are highly dependent on disease prevalence. A result of Invalid indicates the inability to conclusively determine the presence or absence of SARS-CoV-2 RNA in the sample which can be due to a vari ety of factors. Recollection is recommended in the case of an invalid re sult. CDC COVID-19 criteria for testing on hum an specimens and clinical management guidance information are available at [facility] CDC Coronavirus Disease 2019 (COVID-19) webpage under Information fo r Healthcare Professionals (https://www.cdc.gov/coronavirus/2019-nc ov/hcp/index.html). Additional information about this and ot her EUA tests can be found in provider and patient fact sheets at the following FDA website: https://www.fda.gov/medical-devices/ytvwmlmbhak-suxzuge-1499-zkdqx-43-vcgirbtgm- rir-lfdajzghcullxz-ocpbubv-devices/mwjxh-plljptgzxnk-lkdi SARS-CoV-2 Source [employer] SERV[employer] TECHNICIAN Swab [facility] Specimen (Source) Anatomical Collection Method Collection Time Re ceived Time Location / / Volume Laterality Nasopharyngeal Swab 08/10/2021 12:12 06/0 03/2021 PM EDT 1:29 PM EDT Comment: Symptoms->Surveillance Resulting Agency Comment Spec In Lab John Neumann MD MICROBIOLOGY - GENERAL ORDER CHENG Performing Organization Address City/State/[place] [address] Scan, Peripheral Blood (08/08/2021 5:14 AM EDT) [facility] gist Method Time Signature Plat Estimate Decreased [facility] RBC Morphology Abnormal [facility] Ovalocytes 1-5 /HPF [facility] Rishabh Cells 1-5 /HPF [facility] Specimen Anatomical Collection Method Collection Time Receive d Time (Source) Location / / Volume Laterality Blood 08/08/2021 5:14 AM 5:21 EDT AM EDT Resulting Agency Comment Spec In Lab Flory Polo MD HEMATOLOGY ORDERABLES Performing Organization Address City/State/[place] [address] (ABNORMAL) Differential, Automated (08/08/2021 5:14 AM EDT) [facility] Method Time Signature Neutrophils % 77.3 % [facility] Neutr Abs (ANC) 12.77 (H) 1.70 - [facility] 6.10 [facility] x10(3)/[facility] LABORATORY Lymphocytes % 5.9 % [facility] Lymphocytes Abs 1.0 0.9 - 3.2 [facility] x10(3)/[facility] LABORATORY Monocytes % 7.2 % [facility] Monocyte Abs 1.2 (H) 0.3 - 0.9 [facility] x10(3)/[facility] LABORATORY Eosinophils % 0.2 % [facility] Eosinophils Abs 0.0 0.0 - 0.4 [facility] x10(3)/[facility] LABORATORY Basophils % 0.7 % [facility] Basophils Abs 0.1 0.0 - 0.1 [facility] x10(3)/[facility] LABORATORY Immature Gran % 8.70 % [facility] Comment: Immature granulocytes(IG's)percentage an d absolute count will include metamyelocytes, myelocytes, and promyelo cytes. Blood smears from CBCs yielding IG's will be scanned manually for concor dance. If this scan disagrees with the automated IG or if promyelocytes are not ed, a manual differential will be performed. Beba Gran Abs 1.43 (H) 0.00 - 0.04 x10(3)/[facility] LABORATORY Specimen Anatomical Collection Method Collection Time Receive d Time (Source) Location / / Volume Laterality Blood 08/08/2021 5:14 AM 2 5:21 EDT AM EDT Resulting Agency Comment Spec In Lab Flory Polo MD HEMATOLOGY ORDERABLES Performing Organization Address City/State/[place] [address] (ABNORMAL) Hemogram (08/08/2021 5:14 AM EDT) Analysis Performed At Patho logist Time Signature WBC 16.5 (H) 4.0 - 9.5 [facility] x10(3)/[facility] LABORATORY RBC 4.51 (L) 4.58 - [facility] 5.54 [facility] x10(6)/[facility] LABORATORY Hemoglobin 14.0 13.7 - [facility] 16.5 g/dL [facility] Hematocrit 40.0 (L) 40.5 - [facility] 48.[facility] % [facility] MCV 88.7 82.9 - [facility] 93[facility]1 [facility]AT[facility] MCH 31.0 27[facility]5 - [facility] 32.1 pg [facility] MCHC 35.0 32.0 - [facility] 35.7 g/dL [facility] Platelets 114 (L) 145 - 357 [facility] x10(3)/[facility] LABORATORY RDWSD 51.1 (H) 36.0 - [facility] 45.0 [facility] LABORATORY RDWCV 15.9 (H) 11.4 - [facility] 13.8 % [facility] MPV 10.2 7.6 - 12.9 [facility] LABORATORY nRBC % Auto 0.0 % [facility] nRBC Abs Auto 0.000 0.000 - [facility] 0.000 [facility] x10(3)/[facility] LABORATORY Specimen Anatomical Collection Method Collection Time Receive d Time (Source) Location / / Volume Laterality Blood 08/08/2021 5:14 AM 2 5:21 EDT AM EDT Resulting Agency Comment Spec In Lab Flory Polo MD HEMATOLOGY ORDERABLES Performing Organization Address City/State/[place] [address] (ABNORMAL) BMP w/fasting Glucose (08/08/2021 5:14 AM EDT) athologist Signature Glucose 119 (H) 65 - 99 [facility] Fasting mg/dL [facility] Comment: ?Fasting* Glucose Interpretive C riteria Normal ?65-99 mg/dL Impaired Fasting glucose ?100-125 mg/dL Consistent with Diabetes Mellitus ? >or= 126 mg/dL *Fasting is defined as no caloric intake for at least 8 hours In the absence of unequivocal hypergly cemia a plasma glucose value of >or= 126 mg/dL should be repeated on a subseq uent day. Diagnosis and Classification of Diabetes Mellitus, Position Statement from the [place] [employer]. ??Diabete s Care, Volume 33, Supplement 1, Mar 2009 BUN 23 (H) 10 - 20 mg/dL [place] [facility] Creatinine 0.71 (L) 0.80 - 1.50 mg/dL [facility] Sodium 127 (L) 135 - 145 mmol/L [facility] Potassium 4.7 3.5 - 5.0 mmol/L [facility] Comment: Please note: ??Patients with WBC >100,00 0 may have falsely elevated Potassium levels. ??For accurate Potassium quantif ication in these patients send serum separator tube (gold top) for subsequent determinations. ??Contact the Clinical Chemistry Laboratory if there are any qu estions. Chloride 94 (L) 98 - 107 mmol/L [facility] CO2 25 22 - 31 mmol/L [facility] Anion Gap 8 5 - 15 mmol/L [facility] Calcium 7.7 (L) 8.5 - 10.5 mg/dL [facility] Estimated GFR 92 >=60 mL/min/1.73 m?? [facility] Comment: This patient? s estimated glomerular filtration rate (eGFR) is between 92 mL/min/1.73 m2 (patients with less muscl e mass per kg body weight) and 107 mL/min/1.73 m2 (patients with more muscl e mass per kg body weight) as determined by the CKD-EPI equation. Asse ssment of eGFR is not appropriate when creatinine concentrations are rapidly ch anging. For clinical decisions where creatinine clearance will affect therapy , a 24-hour urine creatinine clearance may be advised. Assignment of CKD stage 1 - 5 for patien ts with an eGFR near the transition point between stages may be based on cli nical assessment of muscle mass and symptoms in addition to eGFR. Specimen Anatomical Collection Method Collection Time Receive d Time (Source) Location / / Volume Laterality Blood 08/08/2021 5:14 AM 2 5:21 EDT AM EDT Resulting Agency Comment Spec In Lab Flory Polo MD CHEMISTRY ORDERABLES Performing Organization Address City/State/[place] [address] Scan, Peripheral Blood (08/07/2021 2:00 AM EDT) [facility] Method Time Signature Plat Estimate Decreased [facility] RBC Morphology Abnormal [facility] Ovalocytes 1-5 /HPF [facility] [place] Cells 1-5 /HPF [facility] Specimen Anatomical Collection Method Collection Time Receive d Time (Source) Location / / Volume Laterality Blood 08/07/2021 2:00 AM 2 2:34 EDT AM EDT Resulting Agency Comment Spec In Lab Flory Polo MD HEMATOLOGY ORDERABLES Performing Organization Address City/State/[place] [address] (ABNORMAL) Differential, Automated (08/07/2021 2:00 AM EDT) [employer] Method Time Signature Neutrophils % 77.3 % [facility] Neutr Abs (ANC) 12.78 (H) 1.70 - [facility] 6.10 [facility] x10(3)/[facility] L LABORATORY Lymphocytes % 7.1 % [facility] Lymphocytes Abs 1.2 0.9 - 3.2 [facility] x10(3)/[facility] LABORATORY Monocytes % 6.4 % [facility] Monocyte Abs 1.0 (H) 0.3 - 0.9 [facility] x10(3)/[facility] LABORATORY Eosinophils % 0.0 % [facility] Eosinophils Abs 0.0 0.0 - 0.4 [facility] x10(3)/[facility] LABORATORY Basophils % 0.1 % [facility] Basophils Abs 0.0 0.0 - 0.1 [facility] x10(3)/[facility] LABORATORY Immature Gran % 9.10 % [facility] Comment: Immature granulocytes(IG's)percentage an d absolute count will include metamyelocytes, myelocytes, and promyelo cytes. Blood smears from CBCs yielding IG's will be scanned manually for concor dance. If this scan disagrees with the automated IG or if promyelocytes are not ed, a manual differential will be performed. Beba Gran Abs 1.51 (H) 0.00 - 0.04 x10(3)/[facility] LABORATORY Specimen Anatomical Collection Method Collection Time Receive d Time (Source) Location / / Volume Laterality Blood 08/07/2021 2:00 AM 2 2:34 EDT AM EDT Resulting Agency Comment Spec In Lab Flory Polo MD HEMATOLOGY ORDERABLES Performing Organization Address City/State/[place] [address] (ABNORMAL) Hemogram (08/07/2021 2:00 AM EDT) Analysis Performed At Patho logist Time Signature WBC 16.5 (H) 4.0 - 9.5 [facility] x10(3)/[facility] LABORATORY RBC 4.30 (L) 4.58 - [facility] 5.54 [facility] x10(6)/[facility] LABORATORY Hemoglobin 13.2 (L) 13.7 - [place] [place] 16.5 g/dL [facility] Hematocrit 38.6 (L) 40.5 - [facility] [place] 48.5 % [facility] MCV 89.8 82.9 - [facility] [place] 93.1 [facility] LABORATORY MCH 30.7 27.5 - [place] [place] 32.1 pg [facility] MCHC 34.2 32.0 - [facility] [place] 35.7 g/dL [facility] Platelets 108 (L) 145 - 357 [place] x10(3)/[facility] LABORATORY RDWSD 51.8 (H) 36.0 - [facility] LABORATORY RDWCV 16.0 (H) 11.4 - [facility] [place] 13.8 % [facility] MPV 10.4 7.6 - 12.9 [facility] LABORATORY nRBC % Auto 0.0 % [facility] nRBC Abs Auto 0.000 0.000 - [facility] [place] 0.000 [facility] x10(3)/[facility] LABORATORY Specimen Anatomical Collection Method Collection Time Receive d Time (Source) Location / / Volume Laterality Blood 08/07/2021 2:00 AM 2 2:34 EDT AM EDT Resulting Agency Comment Spec In Lab Flory Polo MD HEMATOLOGY ORDERABLES Performing Organization Address City/State/[place] [address] (ABNORMAL) BMP w/fasting Glucose (08/07/2021 2:00 AM EDT) P athologist Signature Glucose 121 (H) 65 - 99 [facility] Fasting mg/dL [facility] Comment: ?Fasting* Glucose Interpretive C riteria Normal ?65-99 mg/dL Impaired Fasting glucose ?100-125 mg/dL Consistent with Diabetes Mellitus ? >or= 126 mg/dL *Fasting is defined as no caloric intake for at least 8 hours In the absence of unequivocal hypergly cemia a plasma glucose value of >or= 126 mg/dL should be repeated on a subseq uent day. Diagnosis and Classification of Diabetes Mellitus, Position Statement from the [place] [employer]. ??Diabete s Care, Volume 33, Supplement 1, Mar 2009 BUN 24 (H) 10 - 20 mg/dL [facility] Creatinine 0.76 (L) 0.80 - 1.50 mg/dL [facility] Sodium 129 (L) 135 - 145 mmol/L [facility] Potassium 4.8 3.5 - 5.0 mmol/L [facility] Comment: Please note: ??Patients with WBC >100,00 0 may have falsely elevated Potassium levels. ??For accurate Potassium quantif ication in these patients send serum separator tube (gold top) for subsequent determinations. ??Contact the Clinical Chemistry Laboratory if there are any qu estions. Chloride 95 (L) 98 - 107 mmol/L [facility] CO2 26 22 - 31 mmol/L [facility] Anion Gap 8 5 - 15 mmol/L [facility] Calcium 7.8 (L) 8.5 - 10.5 mg/dL [facility] Estimated GFR 90 >=60 mL/min/1.73 m?? [facility] Comment: This patient? s estimated glomerular filtration rate (eGFR) is between 90 mL/min/1.73 m2 (patients with less muscl e mass per kg body weight) and 104 mL/min/1.73 m2 (patients with more muscl e mass per kg body weight) as determined by the CKD-EPI equation. Asse ssment of eGFR is not appropriate when creatinine concentrations are rapidly ch anging. For clinical decisions where creatinine clearance will affect therapy , a 24-hour urine creatinine clearance may be advised. Assignment of CKD stage 1 - 5 for patien ts with an eGFR near the transition point between stages may be based on cli nical assessment of muscle mass and symptoms in addition to eGFR. Specimen Anatomical Collection Method Collection Time Receive d Time (Source) Location / / Volume Laterality Blood 08/07/2021 2:00 AM 2 2:34 EDT AM EDT Resulting Agency Comment Spec In Lab Flory Polo MD CHEMISTRY ORDERABLES Performing Organization Address City/State/[place] [address] (ABNORMAL) Differential, Automated (08/06/2021 3:29 AM EDT) [facility] Method Time Signature Neutrophils % 76.0 % [facility] Neutr Abs (ANC) 13.44 (H) 1.70 - [facility] 6.10 [facility] x10(3)/[facility] LABORATORY Lymphocytes % 7.2 % [facility] Lymphocytes Abs 1.3 0.9 - 3.2 [facility] x10(3)/[facility] LABORATORY Monocytes % 6.9 % [facility] Monocyte Abs 1.2 (H) 0.3 - 0.9 [facility] x10(3)/[facility] LABORATORY Eosinophils % 0.1 % [facility] Eosinophils Abs 0.0 0.0 - 0.4 [facility] x10(3)/[facility] LABORATORY Basophils % 0.7 % [facility] Basophils Abs 0.1 0.0 - 0.1 [facility] x10(3)/[facility] LABORATORY Immature Gran % 9.10 % [facility] Comment: Immature granulocytes(IG's)percentage an d absolute count will include metamyelocytes, myelocytes, and promyelo cytes. Blood smears from CBCs yielding IG's will be scanned manually for concor dance. If this scan disagrees with the automated IG or if promyelocytes are not ed, a manual differential will be performed. Beba Gran Abs 1.60 (H) 0.00 - 0.04 x10(3)/[facility] LABORATORY Specimen Anatomical Collection Method Collection Time Receive d Time (Source) Location / / Volume Laterality Blood 08/06/2021 3:29 AM 2 3:38 EDT AM EDT Resulting Agency Comment Spec In Lab Ji Blanco MD HEMATOLOGY ORDERABLES Performing Organization Address City/[facility]/[place] [address] (ABNORMAL) Hemogram (08/06/2021 3:29 AM EDT) Analysis Performed At Patho logist Time Signature WBC 17.7 (H) 4.0 - 9.5 [facility] LABORATORY RBC 4.23 (L) 4.58 - [facility] [place] 5.54 [facility] x10(6)/[facility] LABORATORY Hemoglobin 12.8 (L) 13.7 - [facility] 16.[facility] g/dL [facility] Hematocrit 37.6 (L) 40.5 - [facility] 48.5 % [facility] MCV 88.9 82.9 - [facility] 93.1 [facility] LABORATORY MCH 30.3 27.5 - [facility] 32.1 pg [facility] MCHC 34.0 32.0 - [facility] 35.7 g/dL [facility] Platelets 98 (L) 145 - 357 [facility] x10(3)/[facility] LABORATORY RDWSD 51.0 (H) 36.0 - [facility] 45.0 [facility] LABORATORY RDWCV 16.0 (H) 11.4 - [facility] 13.8 % [facility] MPV 10.4 7.6 - 12.9 [facility] nRBC % Auto 0.0 % [facility] nRBC Abs Auto 0.000 0.000 - [facility] 0.000 [facility] x10(3)/[facility] LABORATORY Specimen Anatomical Collection Method Collection Time Receive d Time (Source) Location / / Volume Laterality Blood 08/06/2021 3:29 AM 2 3:38 EDT AM EDT Resulting Agency Comment Spec In Lab Ji Blanco MD HEMATOLOGY ORDERABLES Performing Organization Address City/[facility]/[place] [address] (ABNORMAL) Basic Metabolic Panel (non-fasting) (08/06/2021 3:29 AM EDT) P athologist Signature Glucose Lvl 116 65 - 199 [facility] mg/dL [facility] Comment: Diabetes: >=200 mg/dL plus symp toms BUN 26 (H) 10 - 20 mg/dL [facility] Creatinine 0.74 (L) 0.80 - 1.50 mg/dL [facility] Sodium 129 (L) 135 - 145 mmol/L [facility] Potassium 4.9 3.5 - 5.0 mmol/L [facility] Comment: Please note: ??Patients with WBC >100,00 0 may have falsely elevated Potassium levels. ??For accurate Potassium quantif ication in these patients send serum separator tube (gold top) for subsequent determinations. ??Contact the Clinical Chemistry Laboratory if there are any qu estions. Chloride 99 98 - 107 mmol/L [facility] CO2 22 22 - 31 mmol/L [facility] Anion Gap 8 5 - 15 mmol/L [facility] Calcium 7.8 (L) 8.5 - 10.5 mg/dL [facility] Estimated GFR 91 >=60 mL/min/1.73 m?? [facility] Comment: This patient? s estimated glomerular filtration rate (eGFR) is between 91 mL/min/1.73 m2 (patients with less muscl e mass per kg body weight) and 105 mL/min/1.73 m2 (patients with more muscl e mass per kg body weight) as determined by the CKD-EPI equation. Asse ssment of eGFR is not appropriate when creatinine concentrations are rapidly ch anging. For clinical decisions where creatinine clearance will affect therapy , a 24-hour urine creatinine clearance may be advised. Assignment of CKD stage 1 - 5 for patien ts with an eGFR near the transition point between stages may be based on cli nical assessment of muscle mass and symptoms in addition to eGFR. Specimen Anatomical Collection Method Collection Time Receive d Time (Source) Location / / Volume Laterality Blood 08/06/2021 3:29 AM 2 3:38 EDT AM EDT Resulting Agency Comment Spec In Lab Ji Blanco MD CHEMISTRY ORDERABLES Performing Organization Address City/[facility]/[place] [address] Heparin-induced platelet antibody (08/05/2021 12:08 PM EDT) Analysis Performed At [facility] logist Time Signature Heparin Ab Negative [facility] LABORATORY Comment: 08/05/2021 17:22 ??QUALJR The results of this assay should not be used as the sole basis for a clinical decision.?? Average OD = 0.081 In order to be reported as positive the average OD must be greater than or equal to .400; a negative result must pineda ve an average OD of less than or equal to .300. Specimen Anatomical Collection Method Collection Time Receive d Time (Source) Location / / Volume Laterality Blood 08/05/2021 12:08 08/05/2021 PM EDT 12:08 PM EDT Resulting Agency Comment Spec In Lab Ji Blanco MD BLOOD BANK ORDERABLES Performing Organization Address City/[facility]/[place] [address] Scan, Peripheral Blood (08/05/2021 4:12 AM EDT) [facility] Method Time Signature Plat Estimate Decreased [facility] RBC Morphology Abnormal [facility] Ovalocytes 1-5 /HPF [facility] Tear Drop Cells 1-5 /HPF [facility] [place] Cells 6-10 /HPF [facility] Specimen Anatomical Collection Method Collection Time Receive d Time (Source) Location / / Volume Laterality Blood 08/05/2021 4:12 AM 4:50 EDT AM EDT Resulting Agency Comment Spec In Lab Stephanie Bird APRN HEMATOLOGY ORDERABLES Performing Organization Address City/[facility]/[place] [address] (ABNORMAL) Differential, Automated (08/05/2021 4:12 AM EDT) [email or web address] Method Time Signature Neutrophils % 78.3 % [facility] Neutr Abs (ANC) 15.66 (H) 1.70 - [facility] 6.10 [facility] x10(3)/[facility] LABORATORY Lymphocytes % 5.6 % [facility] Lymphocytes Abs 1.1 0.9 - 3.2 [facility] x10(3)/[facility] LABORATORY Monocytes % 6.4 % [facility] Monocyte Abs 1.3 (H) 0.3 - 0.9 [facility] x10(3)/[facility] LABORATORY Eosinophils % 0.2 % [facility] Eosinophils Abs 0.0 0.0 - 0.4 [facility] x10(3)/[facility] LABORATORY Basophils % 0.1 % [facility] Basophils Abs 0.0 0.0 - 0.1 [facility] x10(3)/[facility] LABORATORY Immature Gran % 9.40 % [facility] Comment: Immature granulocytes(IG's)percentage an d absolute count will include metamyelocytes, myelocytes, and promyelo cytes. Blood smears from CBCs yielding IG's will be scanned manually for concor dance. If this scan disagrees with the automated IG or if promyelocytes are not ed, a manual differential will be performed. Beba Gran Abs 1.88 (H) 0.00 - 0.04 x10(3)/[facility] LABORATORY Specimen Anatomical Collection Method Collection Time Receive d Time (Source) Location / / Volume Laterality Blood 08/05/2021 4:12 AM 4:50 EDT AM EDT Resulting Agency Comment Spec In Lab Stephanie Bird APRN HEMATOLOGY ORDERABLES Performing Organization Address City/State/[place] [address] (ABNORMAL) Hemogram (08/05/2021 4:12 AM EDT) Analysis Performed At [facility] Time Signature WBC 20.0 (H) 4.0 - 9.5 [facility] x10(3)/[facility] LABORATORY RBC 4.62 4.58 - [facility] x10(6)/[facility] LABORATORY Hemoglobin 14.2 13.7 - [facility] 16[facility] g/dL [facility] Hematocrit 43.2 40.5 - [facility] 48.5 % [facility] MCV 93.5 (H) 82.9 - [facility] 93[facility]1 [facility] LABORATORY MCH 30.7 27.5 - [facility] [place] 32.1 pg [facility] MCHC 32.9 32.0 - [facility] 35.7 g/dL [facility] Platelets 91 (L) 145 - 357 [facility] x10(3)/[facility] LABORATORY RDWSD 55.5 (H) 36.0 - [facility]0 [facility] LABORATORY RDWCV 16.4 (H) 11.4 - [facility] 13.8 % [facility] MPV 10.4 7.6 - 12.9 [facility] LABORATORY nRBC % Auto 0.0 % [facility] nRBC Abs Auto 0.000 0.000 - [facility] 0.000 [facility] x10(3)/[facility] LABORATORY Specimen Anatomical Collection Method Collection Time Receive d Time (Source) Location / / Volume Laterality Blood 08/05/2021 4:12 AM 4:50 EDT AM EDT Resulting Agency Comment Spec In Lab Stephanie Bird APRN HEMATOLOGY ORDERABLES Performing Organization Address City/State/[place] [address] (ABNORMAL) Basic Metabolic Panel (non-fasting) (08/05/2021 4:12 AM EDT) P athologist Signature Glucose Lvl 139 65 - 199 [facility] mg/dL [facility] Comment: Diabetes: >=200 mg/dL plus symp toms BUN 27 (H) 10 - 20 mg/dL [facility] Creatinine 0.66 (L) 0.80 - 1.50 mg/dL [facility] Sodium 131 (L) 135 - 145 mmol/L [facility] Potassium 4.4 3.5 - 5.0 mmol/L [facility] Comment: Please note: ??Patients with WBC >100,00 0 may have falsely elevated Potassium levels. ??For accurate Potassium quantif ication in these patients send serum separator tube (gold top) for subsequent determinations. ??Contact the Clinical Chemistry Laboratory if there are any qu estions. Chloride 98 98 - 107 mmol/L [facility] CO2 21 (L) 22 - 31 mmol/L [facility] Anion Gap 12 5 - 15 mmol/L [facility] Calcium 7.8 (L) 8.5 - 10.5 mg/dL [facility] Estimated GFR 95 >=60 mL/min/1.73 m?? [facility] Comment: This patient? s estimated glomerular filtration rate (eGFR) is between 95 mL/min/1.73 m2 (patients with less muscl e mass per kg body weight) and 110 mL/min/1.73 m2 (patients with more muscl e mass per kg body weight) as determined by the CKD-EPI equation. Asse ssment of eGFR is not appropriate when creatinine concentrations are rapidly ch anging. For clinical decisions where creatinine clearance will affect therapy , a 24-hour urine creatinine clearance may be advised. Assignment of CKD stage 1 - 5 for patien ts with an eGFR near the transition point between stages may be based on cli nical assessment of muscle mass and symptoms in addition to eGFR. Specimen Anatomical Collection Method Collection Time Receive d Time (Source) Location / / Volume Laterality Blood 08/05/2021 4:12 AM 2 4:50 EDT AM EDT Resulting Agency Comment Spec In Lab Stephanie Bird APRN CHEMISTRY ORDERABLES Performing Organization Address City/State/[place] [address] (ABNORMAL) Basic Metabolic Panel (non-fasting) (08/04/2021 4:23 AM EDT) P athologist Signature Glucose Lvl 131 65 - 199 [facility] mg/dL [facility] Comment: Diabetes: >=200 mg/dL plus symp toms BUN 28 (H) 10 - 20 mg/dL [facility] Creatinine 0.69 (L) 0.80 - 1.50 mg/dL [facility] Sodium 133 (L) 135 - 145 mmol/L [facility] Potassium 4.8 3.5 - 5.0 mmol/L [facility] Comment: Please note: ??Patients with WBC >100,00 0 may have falsely elevated Potassium levels. ??For accurate Potassium quantif ication in these patients send serum separator tube (gold top) for subsequent determinations. ??Contact the Clinical Chemistry Laboratory if there are any qu estions. Chloride 98 98 - 107 mmol/L [facility] CO2 26 22 - 31 mmol/L [facility] Anion Gap 9 5 - 15 mmol/L [facility] Calcium 7.8 (L) 8.5 - 10.5 mg/dL [facility] Estimated GFR 94 >=60 mL/min/1.73 m?? [facility] Comment: This patient? s estimated glomerular filtration rate (eGFR) is between 94 mL/min/1.73 m2 (patients with less muscl e mass per kg body weight) and 108 mL/min/1.73 m2 (patients with more muscl e mass per kg body weight) as determined by the CKD-EPI equation. Asse ssment of eGFR is not appropriate when creatinine concentrations are rapidly ch anging. For clinical decisions where creatinine clearance will affect therapy , a 24-hour urine creatinine clearance may be advised. Assignment of CKD stage 1 - 5 for patien ts with an eGFR near the transition point between stages may be based on cli nical assessment of muscle mass and symptoms in addition to eGFR. Specimen Anatomical Collection Method Collection Time Receive d Time (Source) Location / / Volume Laterality Blood 08/04/2021 4:23 AM 4:46 EDT AM EDT Resulting Agency Comment Spec In Lab Stephanie Bird APRN CHEMISTRY ORDERABLES Performing Organization Address City/State/[place] [address] (ABNORMAL) Basic Metabolic Panel (non-fasting) (08/03/2021 10:30 AM EDT) P athologist Signature Glucose Lvl 143 65 - 199 [facility] mg/dL [facility] Comment: Diabetes: >=200 mg/dL plus symp toms BUN 27 (H) 10 - 20 mg/dL [facility] Creatinine 0.80 0.80 - 1.50 mg/dL [facility] Sodium 131 (L) 135 - 145 mmol/L [facility] Potassium 4.7 3.5 - 5.0 mmol/L [facility] Comment: Please note: ??Patients with WBC >100,00 0 may have falsely elevated Potassium levels. ??For accurate Potassium quantif ication in these patients send serum separator tube (gold top) for subsequent determinations. ??Contact the Clinical Chemistry Laboratory if there are any qu estions. Chloride 97 (L) 98 - 107 mmol/L [facility] CO2 23 22 - 31 mmol/L [facility] Anion Gap 11 5 - 15 mmol/L [facility] Calcium 7.8 (L) 8.5 - 10.5 mg/dL [facility] Estimated GFR 88 >=60 mL/min/1.73 m?? [facility] Comment: This patient? s estimated glomerular filtration rate (eGFR) is between 88 mL/min/1.73 m2 (patients with less muscl e mass per kg body weight) and 102 mL/min/1.73 m2 (patients with more muscl e mass per kg body weight) as determined by the CKD-EPI equation. Asse ssment of eGFR is not appropriate when creatinine concentrations are rapidly ch anging. For clinical decisions where creatinine clearance will affect therapy , a 24-hour urine creatinine clearance may be advised. Assignment of CKD stage 1 - 5 for patien ts with an eGFR near the transition point between stages may be based on cli nical assessment of muscle mass and symptoms in addition to eGFR. Specimen Anatomical Collection Method Collection Time Receive d Time (Source) Location / / Volume Laterality Blood 08/03/2021 10:30 08/03/2021 AM EDT 10:37 AM EDT Resulting Agency Comment Spec In Lab Stephanie Bird ALNIA CHEMISTRY ORDERABLES Performing Organization Address City/State/[place] [address] (ABNORMAL) Basic Metabolic Panel (non-fasting) (08/02/2021 4:39 AM EDT) P athologist Signature Glucose Lvl 133 65 - 199 [facility] mg/dL [facility] Comment: Diabetes: >=200 mg/dL plus symp toms BUN 27 (H) 10 - 20 mg/dL [facility] Creatinine 0.79 (L) 0.80 - 1.50 mg/dL [facility] Sodium 130 (L) 135 - 145 mmol/L [facility] Potassium 4.7 3.5 - 5.0 mmol/L [facility] Comment: Please note: ??Patients with WBC >100,00 0 may have falsely elevated Potassium levels. ??For accurate Potassium quantif ication in these patients send serum separator tube (gold top) for subsequent determinations. ??Contact the Clinical Chemistry Laboratory if there are any qu estions. Chloride 97 (L) 98 - 107 mmol/L [facility] CO2 21 (L) 22 - 31 mmol/L [facility] Anion Gap 12 5 - 15 mmol/L [facility] Calcium 8.0 (L) 8.5 - 10.5 mg/dL [facility] Estimated GFR 88 >=60 mL/min/1.73 m?? [facility] Comment: This patient? s estimated glomerular filtration rate (eGFR) is between 88 mL/min/1.73 m2 (patients with less muscl e mass per kg body weight) and 103 mL/min/1.73 m2 (patients with more muscl e mass per kg body weight) as determined by the CKD-EPI equation. Asse ssment of eGFR is not appropriate when creatinine concentrations are rapidly ch anging. For clinical decisions where creatinine clearance will affect therapy , a 24-hour urine creatinine clearance may be advised. Assignment of CKD stage 1 - 5 for patien ts with an eGFR near the transition point between stages may be based on cli nical assessment of muscle mass and symptoms in addition to eGFR. Specimen Anatomical Collection Method Collection Time Receive d Time (Source) Location / / Volume Laterality Blood 08/02/2021 4:39 AM 4:53 EDT AM EDT Resulting Agency Comment Spec In Lab Ji Blanco MD CHEMISTRY ORDERABLES Performing Organization Address City/State/[place] [address] (ABNORMAL) Differential, Automated (08/01/2021 3:12 AM EDT) [facility] Method Time Signature Neutrophils % 78.3 % [facility] Neutr Abs (ANC) 14.75 (H) 1.70 - [facility] 6.10 [facility] x10(3)/[facility] LABORATORY Lymphocytes % 5.9 % [facility] Lymphocytes Abs 1.1 0.9 - 3.2 [facility] x10(3)/[facility] LABORATORY Monocytes % 5.7 % [facility] Monocyte Abs 1.1 (H) 0.3 - 0.9 [facility] x10(3)/[facility] LABORATORY Eosinophils % 0.1 % [facility] Eosinophils Abs 0.0 0.0 - 0.4 [facility] x10(3)/[facility] LABORATORY Basophils % 0.6 % [facility] Basophils Abs 0.1 0.0 - 0.1 [facility] x10(3)/[facility] LABORATORY Immature Gran % 9.40 % [facility] Comment: Immature granulocytes(IG's)percentage an d absolute count will include metamyelocytes, myelocytes, and promyelo cytes. Blood smears from CBCs yielding IG's will be scanned manually for concor dance. If this scan disagrees with the automated IG or if promyelocytes are not ed, a manual differential will be performed. Beba Gran Abs 1.77 (H) 0.00 - 0.04 x10(3)/[facility] LABORATORY Specimen Anatomical Collection Method Collection Time Receive d Time (Source) Location / / Volume Laterality Blood 08/01/2021 3:12 AM 2 3:25 EDT AM EDT Resulting Agency Comment Spec In Lab Ji Blanco MD HEMATOLOGY ORDERABLES Performing Organization Address City/State/[place] [address] (ABNORMAL) Hemogram (08/01/2021 3:12 AM EDT) Analysis Performed At Patho logist Time Signature WBC 18.8 (H) 4.0 - 9.5 [facility] x10(3)/[facility] LABORATORY RBC 4.47 (L) 4.58 - [facility] x10(6[facility] LABORATORY Hemoglobin 13.6 (L) 13.7 - [facility] 16.[facility] g/dL [facility] Hematocrit 39.5 (L) 40.5 - [facility] 48[facility] % [facility] MCV 88.4 82.9 - [facility] 93.1 [facility] LABORATORY MCH 30.4 27.5 - [facility] 32.1 pg [facility] MCHC 34.4 32.0 - [facility] 35.[facility] g/dL [facility] Platelets 125 (L) 145 - 357 [facility] x10(3)/[facility] LABORATORY RDWSD 48.7 (H) 36.0 - [facility] 45[facility]0 [facility] LABORATORY RDWCV 15.2 (H) 11.4 - [facility] 13.8 % [facility] MPV 10.5 7.6 - 12.9 [facility] nRBC % Auto 0.0 % [facility] nRBC Abs Auto 0.000 0.000 - [facility] 0.000 [facility] x10(3)/[facility] LABORATORY Specimen Anatomical Collection Method Collection Time Receive d Time (Source) Location / / Volume Laterality Blood 08/01/2021 3:12 AM 2 3:25 EDT AM EDT Resulting Agency Comment Spec In Lab Ji Blanco MD HEMATOLOGY ORDERABLES Performing Organization Address City/State/[place] [address] (ABNORMAL) Basic Metabolic Panel (non-fasting) (08/01/2021 3:12 AM EDT) P athologist Signature Glucose Lvl 143 65 - 199 [facility] mg/dL [facility] Comment: Diabetes: >=200 mg/dL plus symp toms BUN 28 (H) 10 - 20 mg/dL [facility] Creatinine 0.97 0.80 - 1.50 mg/dL [facility] Sodium 128 (L) 135 - 145 mmol/L [facility] Potassium 4.5 3.5 - 5.0 mmol/L [facility] Comment: Please note: ??Patients with WBC >100,00 0 may have falsely elevated Potassium levels. ??For accurate Potassium quantif ication in these patients send serum separator tube (gold top) for subsequent determinations. ??Contact the Clinical Chemistry Laboratory if there are any qu estions. Chloride 95 (L) 98 - 107 mmol/L [facility] CO2 22 22 - 31 mmol/L [facility] Anion Gap 11 5 - 15 mmol/L [facility] Calcium 8.1 (L) 8.5 - 10.5 mg/dL [facility] Estimated GFR 77 >=60 mL/min/1.73 m?? [facility] Comment: This patient? s estimated glomerular filtration rate (eGFR) is between 77 mL/min/1.73 m2 (patients with less muscl e mass per kg body weight) and 89 mL/min/1.73 m2 (patients with more muscl e mass per kg body weight) as determined by the CKD-EPI equation. Asse ssment of eGFR is not appropriate when creatinine concentrations are rapidly ch anging. For clinical decisions where creatinine clearance will affect therapy , a 24-hour urine creatinine clearance may be advised. Assignment of CKD stage 1 - 5 for patien ts with an eGFR near the transition point between stages may be based on cli nical assessment of muscle mass and symptoms in addition to eGFR. Specimen Anatomical Collection Method Collection Time Receive d Time (Source) Location / / Volume Laterality Blood 08/01/2021 3:12 AM 3:25 EDT AM EDT Resulting Agency Comment Spec In Lab Ji Blanco MD CHEMISTRY ORDERABLES Performing Organization Address City/State/[place] [address] (ABNORMAL) Basic Metabolic Panel (non-fasting) (07/31/2021 5:41 AM EDT) athologist Signature Glucose Lvl 152 65 - 199 [facility] mg/dL [facility] Comment: Diabetes: >=200 mg/dL plus symp toms BUN 29 (H) 10 - 20 mg/dL [facility] Creatinine 0.72 (L) 0.80 - 1.50 mg/dL [facility] Sodium 131 (L) 135 - 145 mmol/L [facility] Potassium 4.6 3.5 - 5.0 mmol/L [facility] Comment: Please note: ??Patients with WBC >100,00 0 may have falsely elevated Potassium levels. ??For accurate Potassium quantif ication in these patients send serum separator tube (gold top) for subsequent determinations. ??Contact the Clinical Chemistry Laboratory if there are any qu estions. Chloride 98 98 - 107 mmol/L [facility] CO2 20 (L) 22 - 31 mmol/L [facility] Anion Gap 13 5 - 15 mmol/L [facility] Calcium 8.2 (L) 8.5 - 10.5 mg/dL [facility] Estimated GFR 92 >=60 mL/min/1.73 m?? [facility] Comment: This patient? s estimated glomerular filtration rate (eGFR) is between 92 mL/min/1.73 m2 (patients with less muscl e mass per kg body weight) and 107 mL/min/1.73 m2 (patients with more muscl e mass per kg body weight) as determined by the CKD-EPI equation. Asse ssment of eGFR is not appropriate when creatinine concentrations are rapidly ch anging. For clinical decisions where creatinine clearance will affect therapy , a 24-hour urine creatinine clearance may be advised. Assignment of CKD stage 1 - 5 for patien ts with an eGFR near the transition point between stages may be based on cli nical assessment of muscle mass and symptoms in addition to eGFR. Specimen Anatomical Collection Method Collection Time Receive d Time (Source) Location / / Volume Laterality Blood 07/31/2021 5:41 AM 6:13 EDT AM EDT Resulting Agency Comment Spec In Lab Ji Blanco MD CHEMISTRY ORDERABLES Performing Organization Address City/[facility]/ZIP [facility] Phon e Number [address] Sodium, urine, random (07/30/2021 11:46 AM EDT) P athologist Signature U Sodium 103 mmol/L [facility] Specimen Anatomical Collection Method Collection Time Receive d Time (Source) Location / / Volume Laterality Urine 07/30/2021 11:46 07/30/2021 3:31 AM EDT PM EDT Resulting Agency Comment Spec In Lab Ji Blanco MD URINE ORDERABLES Performing Organization Address City/[facility]/ZIP Code Phon e Number [address] Osmolality, urine, random (07/30/2021 11:46 AM EDT) P athologist Signature U Osmolality 860 50 - 1,200 [facility] mOsm/kg [facility] Specimen Anatomical Collection Method Collection Time Receive d Time (Source) Location / / Volume Laterality Urine 07/30/2021 11:46 07/30/2021 3:31 AM EDT PM EDT Resulting Agency Comment Spec In Lab Ji Blanco MD URINE ORDERABLES Performing Organization Address City/[facility]/ZIP [facility] Phon e Number [address] Scan, Peripheral Blood (07/30/2021 8:47 AM EDT) [facility] Method Time Signature Plat Estimate Decreased [facility] RBC Morphology Abnormal [facility] Rishabh Cells 6-10 /HPF [facility] Specimen Anatomical Collection Method Collection Time Receive d Time (Source) Location / / Volume Laterality Blood 07/30/2021 8:47 AM 9:02 EDT AM EDT Resulting Agency Comment Spec In Lab Ji Blanco MD HEMATOLOGY ORDERABLES Performing Organization Address City/State/[place] [address] (ABNORMAL) Differential, Automated (07/30/2021 8:47 AM EDT) [facility] gist Method Time Signature Neutrophils % 79.7 % [facility] Neutr Abs (ANC) 12.86 (H) 1.70 - [facility] 6.10 [facility] x10(3)/[facility] LABORATORY Lymphocytes % 6.3 % [facility] Lymphocytes Abs 1.0 0.9 - 3.2 [facility] x10(3)/[facility] LABORATORY Monocytes % 3.8 % [facility] Monocyte Abs 0.6 0.3 - 0.9 [facility] x10(3)/[facility] LABORATORY Eosinophils % 0.4 % [facility] Eosinophils Abs 0.1 0.0 - 0.4 [facility] x10(3)/[facility] LABORATORY Basophils % 0.1 % [facility] Basophils Abs 0.0 0.0 - 0.1 [facility] x10(3)/[facility] LABORATORY Immature Gran % 9.70 % [facility] Comment: Immature granulocytes(IG's)percentage an d absolute count will include metamyelocytes, myelocytes, and promyelo cytes. Blood smears from CBCs yielding IG's will be scanned manually for concor dance. If this scan disagrees with the automated IG or if promyelocytes are not ed, a manual differential will be performed. Beba Gran Abs 1.57 (H) 0.00 - 0.04 x10(3)/[facility] LABORATORY Specimen Anatomical Collection Method Collection Time Receive d Time (Source) Location / / Volume Laterality Blood 07/30/2021 8:47 AM 2 9:02 EDT AM EDT Resulting Agency Comment Spec In Lab Ji Blanco MD HEMATOLOGY ORDERABLES Performing Organization Address City/State/[place] [address] (ABNORMAL) Hemogram (07/30/2021 8:47 AM EDT) Analysis Performed At Patho logist Time Signature WBC 16.1 (H) 4.0 - 9.5 [facility] x10(3)/[facility] LABORATORY RBC 4.77 4.58 - [facility] 5.54 [facility] x10(6)/[facility] LABORATORY Hemoglobin 14.3 13.7 - [facility] g/dL [facility] Hematocrit 42.6 40.5 - [facility] 48.5 % [facility] MCV 89.3 82.9 - [facility] 93.1 [facility] LABORATORY MCH 30.0 27.5 - [facility] 32.1 pg [facility] MCHC 33.6 32.0 - [facility] 35.[facility] g/dL [facility] Platelets 136 (L) 145 - 357 [facility] x10(3)/[facility] LABORATORY RDWSD 48.7 (H) 36.0 - [facility].0 [facility] LABORATORY RDWCV 14.9 (H) 11.4 - [facility] 13.8 % [facility] MPV 10.1 7.6 - 12.9 [facility] LABORATORY nRBC % Auto 0.0 % [facility] nRBC Abs Auto 0.000 0.000 - [facility] 0.000 [facility] x10(3)/[facility] LABORATORY Specimen Anatomical Collection Method Collection Time Receive d Time (Source) Location / / Volume Laterality Blood 07/30/2021 8:47 AM 2 9:02 EDT AM EDT Resulting Agency Comment Spec In Lab Ji Blanco MD HEMATOLOGY ORDERABLES Performing Organization Address City/State/[place] [address] (ABNORMAL) Basic Metabolic Panel (non-fasting) (07/30/2021 8:47 AM EDT) P athologist Signature Glucose Lvl 177 65 - 199 [facility] mg/dL [facility] Comment: Diabetes: >=200 mg/dL plus symp toms BUN 26 (H) 10 - 20 mg/dL [facility] Creatinine 0.87 0.80 - 1.50 mg/dL [facility] Sodium 127 (L) 135 - 145 mmol/L [facility] Potassium 4.5 3.5 - 5.0 mmol/L [facility] Comment: Please note: ??Patients with WBC >100,00 0 may have falsely elevated Potassium levels. ??For accurate Potassium quantif ication in these patients send serum separator tube (gold top) for subsequent determinations. ??Contact the Clinical Chemistry Laboratory if there are any qu estions. Chloride 93 (L) 98 - 107 mmol/L [facility] CO2 18 (L) 22 - 31 mmol/L [facility] Anion Gap 16 (H) 5 - 15 mmol/L [facility] Calcium 7.9 (L) 8.5 - 10.5 mg/dL [facility] Estimated GFR 85 >=60 mL/min/1.73 m?? [facility] Comment: This patient? s estimated glomerular filtration rate (eGFR) is between 85 mL/min/1.73 m2 (patients with less muscl e mass per kg body weight) and 99 mL/min/1.73 m2 (patients with more muscl e mass per kg body weight) as determined by the CKD-EPI equation. Asse ssment of eGFR is not appropriate when creatinine concentrations are rapidly ch anging. For clinical decisions where creatinine clearance will affect therapy , a 24-hour urine creatinine clearance may be advised. Assignment of CKD stage 1 - 5 for patien ts with an eGFR near the transition point between stages may be based on cli nical assessment of muscle mass and symptoms in addition to eGFR. Specimen Anatomical Collection Method Collection Time Receive d Time (Source) Location / / Volume Laterality Blood 07/30/2021 8:47 AM 2 9:02 EDT AM EDT Resulting Agency Comment Spec In Lab Ji Blanco MD CHEMISTRY ORDERABLES Performing Organization Address City/[facility]/ZIP Code Phon e Number [address] Scan, Peripheral Blood (07/29/2021 7:24 AM EDT) [facility] [email or web address] Method Time Signature Plat Estimate Normal [facility] RBC Morphology Abnormal [facility] [place] Cells 1-5 /HPF [facility] Specimen Anatomical Collection Method Collection Time Receive d Time (Source) Location / / Volume Laterality Blood 07/29/2021 7:24 AM 2 7:32 EDT AM EDT Resulting Agency Comment Spec In Lab Stephanie Bird APRN HEMATOLOGY ORDERABLES Performing Organization Address City/[facility]/[place] [address] (ABNORMAL) Differential, Automated (07/29/2021 7:24 AM EDT) [facility] Method Time Signature Neutrophils % 79.0 % [facility] Neutr Abs (ANC) 13.17 (H) 1.70 - [facility] 6.10 [facility] x10(3)/[facility] LABORATORY Lymphocytes % 6.3 % [facility] Lymphocytes Abs 1.0 0.9 - 3.2 [facility] x10(3)/[facility] LABORATORY Monocytes % 5.7 % [facility] Monocyte Abs 1.0 (H) 0.3 - 0.9 [facility] x10(3)/[facility] LABORATORY Eosinophils % 0.1 % [facility] Eosinophils Abs 0.0 0.0 - 0.4 [facility] x10(3)/[facility] LABORATORY Basophils % 0.1 % [facility] Basophils Abs 0.0 0.0 - 0.1 [facility] x10(3)/[facility] LABORATORY Immature Gran % 8.80 % [facility] Comment: Immature granulocytes(IG's)percentage an d absolute count will include metamyelocytes, myelocytes, and promyelo cytes. Blood smears from CBCs yielding IG's will be scanned manually for concor dance. If this scan disagrees with the automated IG or if promyelocytes are not ed, a manual differential will be performed. Beba Gran Abs 1.47 (H) 0.00 - 0.04 x10(3)/[facility] LABORATORY Specimen Anatomical Collection Method Collection Time Receive d Time (Source) Location / / Volume Laterality Blood 07/29/2021 7:24 AM 7:32 EDT AM EDT Resulting Agency Comment Spec In Lab Stephanie Bird APRN HEMATOLOGY ORDERABLES Performing Organization Address City/State/ZIP Code Phon e Number [place] [id number] [address] Drive (ABNORMAL) Hemogram (07/29/2021 7:24 AM EDT) Analysis Performed At Patho logist Time Signature WBC 16.7 (H) 4.0 - 9.5 [facility] x10(3)/[facility] LABORATORY RBC 4.62 4.58 - [facility] 5.54 [facility] x10(6)/[facility] LABORATORY Hemoglobin 14.1 13.7 - [facility] 16.5 g/dL [facility] Hematocrit 40.6 40.5 - [facility] 48[facility] % [facility] MCV 87.9 82.9 - [facility] 93[facility]1 [facility] LABORATORY MCH 30.5 27.5 - [facility] 32.1 pg [facility] MCHC 34.7 32.0 - [facility] 35.7 g/dL [facility] Platelets 152 145 - 357 [facility] x10(3)/[facility] LABORATORY RDWSD 48.0 (H) 36.0 - [facility]0 [facility] LABORATORY RDWCV 15.0 (H) 11.4 - [facility] 13.8 % [facility]ATORY MPV 9.8 7.6 - 12.9 [facility] LABORATORY nRBC % Auto 0.0 % [facility] nRBC Abs Auto 0.000 0.000 - [facility] 0.000 [facility] x10(3)/[facility] LABORATORY Specimen Anatomical Collection Method Collection Time Receive d Time (Source) Location / / Volume Laterality Blood 07/29/2021 7:24 AM 7:32 EDT AM EDT Resulting Agency Comment Spec In Lab Stephanie Brown Pelon FULLER HEMATOLOGY ORDERABLES Performing Organization Address City/State/[place] [address] (ABNORMAL) Basic Metabolic Panel (non-fasting) (07/29/2021 7:24 AM EDT) athologist Signature Glucose Lvl 124 65 - 199 [facility] mg/dL [facility] Comment: Diabetes: >=200 mg/dL plus symp toms BUN 28 (H) 10 - 20 mg/dL [facility] Creatinine 0.81 0.80 - 1.50 mg/dL [facility] Sodium 130 (L) 135 - 145 mmol/L [facility] Potassium 4.6 3.5 - 5.0 mmol/L [facility] Comment: Please note: ??Patients with WBC >100,00 0 may have falsely elevated Potassium levels. ??For accurate Potassium quantif ication in these patients send serum separator tube (gold top) for subsequent determinations. ??Contact the Clinical Chemistry Laboratory if there are any qu estions. Chloride 96 (L) 98 - 107 mmol/L [facility] CO2 23 22 - 31 mmol/L [facility] Anion Gap 11 5 - 15 mmol/L [facility] Calcium 8.1 (L) 8.5 - 10.5 mg/dL [facility] Estimated GFR 88 >=60 mL/min/1.73 m?? [facility] Comment: This patient? s estimated glomerular filtration rate (eGFR) is between 88 mL/min/1.73 m2 (patients with less muscl e mass per kg body weight) and 101 mL/min/1.73 m2 (patients with more muscl e mass per kg body weight) as determined by the CKD-EPI equation. Asse ssment of eGFR is not appropriate when creatinine concentrations are rapidly ch anging. For clinical decisions where creatinine clearance will affect therapy , a 24-hour urine creatinine clearance may be advised. Assignment of CKD stage 1 - 5 for patien ts with an eGFR near the transition point between stages may be based on cli nical assessment of muscle mass and symptoms in addition to eGFR. Specimen Anatomical Collection Method Collection Time Receive d Time (Source) Location / / Volume Laterality Blood 07/29/2021 7:24 AM 2 7:32 EDT AM EDT Resulting Agency Comment Spec In Lab Stephanie Brid APRN CHEMISTRY ORDERABLES Performing Organization Address City/[facility]/[place] [address] (ABNORMAL) Hepatic Function Panel (07/29/2021 7:24 AM EDT) P athologist Signature Total Protein 5.0 (L) 6.1 - 8.0 [facility] [place] g/dL [facility] Albumin 3.0 (L) 3.2 - 5.2 [facility] [place] g/dL [facility] AST 17 0 - 39 [place] [place] unit/L [facility] ALT 21 0 - 55 [place] unit/L [facility] Alk Phos 75 40 - 130 [place] unit/L [facility] Total 0.3 0.2 - 1.3 [facility] [place] Bilirubin mg/dL [facility] Bili, Direct 0.1 0.0 - 0.3 [place] [place] mg/dL [facility] Specimen Anatomical Collection Method Collection Time Receive d Time (Source) Location / / Volume Laterality Blood 07/29/2021 7:24 AM 2 7:32 EDT AM EDT Resulting Agency Comment Spec In Lab Presley Guerin MD CHEMISTRY ORDERABLES Performing Organization Address City/[facility]/[place] [address] Valproic Acid Level, Total (07/29/2021 7:24 AM EDT) athologist Signature Valproic Lvl 37 mg/L [facility] Comment: Therapeutic Range: Anticonvulsant Therapy: ??50-100 mg/L Manic Episodes Associated with Bipolar D isorder: ??50-125 mg/L Specimen Anatomical Collection Method Collection Time Receive d Time (Source) Location / / Volume Laterality Blood 07/29/2021 7:24 AM 2 7:32 EDT AM EDT Resulting Agency Comment Spec In Lab Presley Guerin MD CHEMISTRY ORDERABLES Performing Organization Address City/[facility]/ZIP Code Phon e Number [address] Scan, Peripheral Blood (07/27/2021 5:04 AM EDT) [facility] Method Time Signature Plat Estimate Normal [facility] RBC Morphology Abnormal [facility] Ovalocytes 1-5 /HPF [facility] Rishabh Cells 1-5 /HPF [facility] Specimen Anatomical Collection Method Collection Time Receive d Time (Source) Location / / Volume Laterality Blood 07/27/2021 5:04 AM 2 5:35 EDT AM EDT Resulting Agency Comment Spec In Lab Juan Gaytan DO HEMATOLOGY ORDERABLES Performing Organization Address City/[facility]/ZIP Code Phon e Number [address] (ABNORMAL) Differential, Automated (07/27/2021 5:04 AM EDT) [facility] Method Time Signature Neutrophils % 81.4 % [facility] Neutr Abs (ANC) 10.52 (H) 1.70 - [facility] 6.10 [facility] x10(3)/[facility] L LABORATORY Lymphocytes % 6.9 % [facility] Lymphocytes Abs 0.9 0.9 - 3.2 [facility] x10(3)/[facility] LABORATORY Monocytes % 5.7 % [facility] Monocyte Abs 0.7 0.3 - 0.9 [facility] x10(3)/[facility] LABORATORY Eosinophils % 0.0 % [facility] Eosinophils Abs 0.0 0.0 - 0.4 [facility] x10(3)/[facility] LABORATORY Basophils % 0.5 % [facility] Basophils Abs 0.1 0.0 - 0.1 [facility] x10(3)/[facility] LABORATORY Immature Gran % 5.50 % [facility] Comment: Immature granulocytes(IG's)percentage an d absolute count will include metamyelocytes, myelocytes, and promyelo cytes. Blood smears from CBCs yielding IG's will be scanned manually for concor dance. If this scan disagrees with the automated IG or if promyelocytes are not ed, a manual differential will be performed. Beba Gran Abs 0.71 (H) 0.00 - 0.04 x10(3)/[facility] LABORATORY Specimen Anatomical Collection Method Collection Time Receive d Time (Source) Location / / Volume Laterality Blood 07/27/2021 5:04 AM 5:35 EDT AM EDT Resulting Agency Comment Spec In Lab Juan E Lucila DO HEMATOLOGY ORDERABLES Performing Organization Address City/State/ZIP Code Phon e Number [place] [id number] [address] (ABNORMAL) Hemogram (07/27/2021 5:04 AM EDT) Analysis Performed At Patho logist Time Signature WBC 12.9 (H) 4.0 - 9.5 [facility] x10(3)/[facility] LABORATORY RBC 4.40 (L) 4.58 - [facility] 5.54 [facility] x10(6)/[facility] LABORATORY Hemoglobin 13.2 (L) 13.7 - [facility] 16.5 g/dL [facility] LABORATORY Hematocrit 38.4 (L) 40.5 - [facility] 48[facility] % [facility]AT[facility] MCV 87.3 82.9 - [facility] 93.1 fL [facility] LAB[facility]ATORY MCH 30.0 27.5 - [facility] 32.1 pg [facility] LAB[facility]ATORY MCHC 34.4 32.0 - [facility] 35.7 g/dL [facility] LABORATORY Platelets 162 145 - 357 [facility] x10(3)/[facility] LABORATORY RDWSD 46.9 (H) 36.0 - [facility] 45.0 [facility] LABORATORY RDWCV 14.9 (H) 11.4 - [facility] 13.8 % [facility] LABORATORY MPV 10.0 7.6 - 12.9 [facility] LABORATORY nRBC % Auto 0.0 % [facility] LABORATORY nRBC Abs Auto 0.000 0.000 - [facility] 0.000 [facility] x10(3)/[facility] LABORATORY Specimen Anatomical Collection Method Collection Time Receive d Time (Source) Location / / Volume Laterality Blood 07/27/2021 5:04 AM 5:35 EDT AM EDT Resulting Agency Comment Spec In Lab Juan E Lucila DO HEMATOLOGY ORDERABLES Performing Organization Address City/State/[place] [address] (ABNORMAL) Basic Metabolic Panel (non-fasting) (07/27/2021 5:02 AM EDT) P athologist Signature Glucose Lvl 130 65 - 199 [facility] mg/dL [facility] Comment: Diabetes: >=200 mg/dL plus symp toms BUN 29 (H) 10 - 20 mg/dL [facility] LABORATORY Creatinine 0.93 0.80 - 1.50 mg/dL [facility] LABORATORY Sodium 134 (L) 135 - 145 mmol/L [facility] LABORATORY Potassium 4.7 3.5 - 5.0 mmol/L [facility] LABORATORY Comment: Please note: ??Patients with WBC >100,00 0 may have falsely elevated Potassium levels. ??For accurate Potassium quantif ication in these patients send serum separator tube (gold top) for subsequent determinations. ??Contact the Clinical Chemistry Laboratory if there are any qu estions. Chloride 100 98 - 107 mmol/L [facility] CO2 22 22 - 31 mmol/L [facility] Anion Gap 12 5 - 15 mmol/L [facility] LABORATORY Calcium 7.8 (L) 8.5 - 10.5 mg/dL [facility] LABORATORY Estimated GFR 81 >=60 mL/min/1.73 m?? [facility] Comment: This patient? s estimated glomerular filtration rate (eGFR) is between 81 mL/min/1.73 m2 (patients with less muscl e mass per kg body weight) and 93 mL/min/1.73 m2 (patients with more muscl e mass per kg body weight) as determined by the CKD-EPI equation. Asse ssment of eGFR is not appropriate when creatinine concentrations are rapidly ch anging. For clinical decisions where creatinine clearance will affect therapy , a 24-hour urine creatinine clearance may be advised. Assignment of CKD stage 1 - 5 for patien ts with an eGFR near the transition point between stages may be based on cli nical assessment of muscle mass and symptoms in addition to eGFR. Specimen Anatomical Collection Method Collection Time Receive d Time (Source) Location / / Volume Laterality Blood 07/27/2021 5:02 AM 5:35 EDT AM EDT Resulting Agency Comment Spec In Lab Stephanie Bird APRN CHEMISTRY ORDERABLES Performing Organization Address City/State/[place] [address] (ABNORMAL) Differential, Automated (07/26/2021 4:28 AM EDT) [facility] gist Method Time Signature Neutrophils % 83.3 % [facility] LABORATORY Neutr Abs (ANC) 11.00 (H) 1.70 - [facility] 6.10 [facility] x10(3)/[facility] L LABORATORY Lymphocytes % 6.5 % [facility] LABORATORY Lymphocytes Abs 0.9 0.9 - 3.2 [facility] x10(3)/[facility] LABORATORY Monocytes % 5.5 % [facility] LABORATORY Monocyte Abs 0.7 0.3 - 0.9 [facility] x10(3)/[facility] LABORATORY Eosinophils % 0.0 % [facility] LABORATORY Eosinophils Abs 0.0 0.0 - 0.4 [facility] x10(3)/[facility] LABORATORY Basophils % 0.5 % [facility] LABORATORY Basophils Abs 0.1 0.0 - 0.1 [facility] x10(3)/[facility] LABORATORY Immature Gran % 4.20 % [facility]ATORY Comment: Immature granulocytes(IG's)percentage an d absolute count will include metamyelocytes, myelocytes, and promyelo cytes. Blood smears from CBCs yielding IG's will be scanned manually for concor dance. If this scan disagrees with the automated IG or if promyelocytes are not ed, a manual differential will be performed. Beba Gran Abs 0.56 (H) 0.00 - 0.04 x10(3)/[facility] LABORATORY Specimen Anatomical Collection Method Collection Time Receive d Time (Source) Location / / Volume Laterality Blood 07/26/2021 4:28 AM 2 5:07 EDT AM EDT Resulting Agency Comment Spec In Lab Stephanie Bird APRN HEMATOLOGY ORDERABLES Performing Organization Address City/State/[place] [address] (ABNORMAL) Hemogram (07/26/2021 4:28 AM EDT) Analysis Performed At Patho logist Time Signature WBC 13.2 (H) 4.0 - 9.5 [facility] x10(3)/[facility] LABORATORY RBC 4.59 4.58 - [facility] 5.54 [facility] x10(6)/[facility] LABORATORY Hemoglobin 13.8 13.7 - [facility]/dL [facility] LABORATORY Hematocrit 40.2 (L) 40.5 - [facility] 48.5 % [facility]ATORY MCV 87.6 82.9 - [facility] LABORATORY MCH 30.1 27.5 - [facility] 32.1 pg [facility] LABORATORY MCHC 34.3 32.0 - [facility] g/dL [facility] LABORATORY Platelets 178 145 - 357 [facility] x10(3)/[facility] LABORATORY RDWSD 46.9 (H) 36.0 - [facility]0 [facility] LABORATORY RDWCV 14.9 (H) 11.4 - [facility] 13.8 % [facility] LABORATORY MPV 9.9 7.6 - 12.9 [facility] LABORATORY nRBC % Auto 0.0 % [facility] LABORATORY nRBC Abs Auto 0.000 0.000 - [facility] 0.000 [facility] x10(3)/[facility] LABORATORY Specimen Anatomical Collection Method Collection Time Receive d Time (Source) Location / / Volume Laterality Blood 07/26/2021 4:28 AM 2 5:07 EDT AM EDT Resulting Agency Comment Spec In Lab Stephanie Bird APRN HEMATOLOGY ORDERABLES Performing Organization Address City/[facility]/ZIP Code Phon e Number [address] Phosphorus (07/26/2021 4:28 AM EDT) athologist Signature Phosphorus 3.5 2.5 - 4.5 [facility] LABORATORY Specimen Anatomical Collection Method Collection Time Receive d Time (Source) Location / / Volume Laterality Blood 07/26/2021 4:28 AM 2 5:07 EDT AM EDT Resulting Agency Comment Spec In Lab Stephanie Bird APRN CHEMISTRY ORDERABLES Performing Organization Address City/[facility]/ZIP Code Phon e Number [address] Magnesium (07/26/2021 4:28 AM EDT) athologist Signature Magnesium 0.92 0.69 - 1.07 [facility]/L [facility] LABORATORY Specimen Anatomical Collection Method Collection Time Receive d Time (Source) Location / / Volume Laterality Blood 07/26/2021 4:28 AM 2 5:07 EDT AM EDT Resulting Agency Comment Spec In Lab Stephanie Bird APRN CHEMISTRY ORDERABLES Performing Organization Address City/[facility]/ZIP Code Phon e Number [address] (ABNORMAL) Comprehensive metabolic panel (non-fasting) (07/26/2021 4:28 AM EDT) P athologist Signature Glucose Lvl 120 65 - 199 [facility] mg/dL [facility] LABORATORY Comment: Diabetes: >=200 mg/dL plus symp toms BUN 26 (H) 10 - 20 mg/dL [facility] LABORATORY Creatinine 0.79 (L) 0.80 - 1.50 mg/dL [facility] LABORATORY Sodium 133 (L) 135 - 145 mmol/L [facility] LABORATORY Potassium 4.5 3.5 - 5.0 mmol/L [facility] LABORATORY Comment: Please note: ??Patients with WBC >100,00 0 may have falsely elevated Potassium levels. ??For accurate Potassium quantif ication in these patients send serum separator tube (gold top) for subsequent determinations. ??Contact the Clinical Chemistry Laboratory if there are any qu estions. Chloride 98 98 - 107 mmol/L [facility]ATORY CO2 22 22 - 31 mmol/L [facility] Anion Gap 13 5 - 15 mmol/L [facility] LABORATORY Calcium 8.0 (L) 8.5 - 10.5 mg/dL [facility] LABORATORY Total Protein 5.2 (L) 6.1 - 8.0 g/dL [facility] LABORATORY Albumin 3.3 3.2 - 5.2 g/dL [facility] AST 14 0 - 39 unit/L [facility] LABORATORY ALT 19 0 - 55 unit/L [facility] LABORATORY Alk Phos 93 40 - 130 unit/L [facility] Total Bilirubin 0.4 0.2 - 1.3 mg/dL [facility] LABORATORY Estimated GFR 88 >=60 mL/min/1.73 m?? [facility] Comment: This patient? s estimated glomerular filtration rate (eGFR) is between 88 mL/min/1.73 m2 (patients with less muscl e mass per kg body weight) and 103 mL/min/1.73 m2 (patients with more muscl e mass per kg body weight) as determined by the CKD-EPI equation. Asse ssment of eGFR is not appropriate when creatinine concentrations are rapidly ch anging. For clinical decisions where creatinine clearance will affect therapy , a 24-hour urine creatinine clearance may be advised. Assignment of CKD stage 1 - 5 for patien ts with an eGFR near the transition point between stages may be based on cli nical assessment of muscle mass and symptoms in addition to eGFR. Specimen Anatomical Collection Method Collection Time Receive d Time (Source) Location / / Volume Laterality Blood 07/26/2021 4:28 AM 5:07 EDT AM EDT Resulting Agency Comment Spec In Lab Stephanie Brown Pelon FULLER CHEMISTRY ORDERABLES Performing Organization Address City/State/ZIP Code Phon e Number [place] [id number] Drive (ABNORMAL) Differential, Automated (07/25/2021 11:44 AM EDT) [facility] Method Time Signature Neutrophils % 84.8 % [facility] LABORATORY Neutr Abs (ANC) 11.70 (H) 1.70 - [facility] 6.10 [facility] x10(3)/[facility] L LABORATORY Lymphocytes % 5.7 % [facility] LABORATORY Lymphocytes Abs 0.8 (L) 0.9 - 3.2 [facility] x10(3)/[facility] LABORATORY Monocytes % 6.9 % [facility] LABORATORY Monocyte Abs 1.0 (H) 0.3 - 0.9 [facility] x10(3)/[facility] LABORATORY Eosinophils % 0.0 % [facility] LABORATORY Eosinophils Abs 0.0 0.0 - 0.4 [facility] x10(3)/[facility] LABORATORY Basophils % 0.2 % [facility] LABORATORY Basophils Abs 0.0 0.0 - 0.1 [facility] x10(3)/[facility] LABORATORY Immature Gran % 2.40 % [facility]ATORY Comment: Immature granulocytes(IG's)percentage an d absolute count will include metamyelocytes, myelocytes, and promyelo cytes. Blood smears from CBCs yielding IG's will be scanned manually for concor danrussell. If this scan disagrees with the automated IG or if promyelocytes are not ed, a manual differential will be performed. Beba Gran Abs 0.33 (H) 0.00 - 0.04 x10(3)/[facility] LABORATORY Specimen Anatomical Collection Method Collection Time Receive d Time (Source) Location / / Volume Laterality Blood 07/25/2021 11:44 07/25/2021 AM EDT 12:06 PM EDT Resulting Agency Comment Spec In Lab Stephanie Brown Pelon FULLER HEMATOLOGY ORDERABLES Performing Organization Address City/State/[place] [address] (ABNORMAL) Hemogram (07/25/2021 11:44 AM EDT) Analysis Performed At Patho logist Time Signature WBC 13.8 (H) 4.0 - 9.5 [facility] x10(3)/[facility] LABORATORY RBC 4.68 4.58 - [facility] x10(6)/[facility] LABORATORY Hemoglobin 14.0 13.7 - [facility] 16.[facility] g/dL [facility] LABORATORY Hematocrit 40.5 40.5 - [facility] 48.5 % [facility]ATORY MCV 86.5 82.9 - [facility] 93.1 [facility] LABORATORY MCH 29.9 27.5 - [facility] 32.1 pg [facility] LABORATORY MCHC 34.6 32.0 - [facility] 35.[facility] g/dL [facility] LABORATORY Platelets 185 145 - 357 [facility] x10(3)/[facility] LABORATORY RDWSD 47.1 (H) 36.0 - [facility] 45.0 [facility] LABORATORY RDWCV 14.9 (H) 11.4 - [facility] 13.8 % [facility] LABORATORY MPV 9.9 7.6 - 12.9 [facility] LABORATORY nRBC % Auto 0.0 % [facility] LABORATORY nRBC Abs Auto 0.000 0.000 - [facility] 0.000 [facility] x10(3)/[facility] LABORATORY Specimen Anatomical Collection Method Collection Time Receive d Time (Source) Location / / Volume Laterality Blood 07/25/2021 11:44 07/25/2021 AM EDT 12:06 PM EDT Resulting Agency Comment Spec In Lab Stephanie Bird APRN HEMATOLOGY ORDERABLES Performing Organization Address City/State/[place] [address] (ABNORMAL) Comprehensive metabolic panel (non-fasting) (07/25/2021 11:44 AM EDT) P athologist Signature Glucose Lvl 110 65 - 199 [facility] mg/dL [facility] LABOR[facility]ORY Comment: Diabetes: >=200 mg/dL plus symp toms BUN 28 (H) 10 - 20 mg/dL [facility] LABORATORY Creatinine 0.87 0.80 - 1.50 mg/dL [facility] LABORATORY Sodium 132 (L) 135 - 145 mmol/L [facility] LABORATORY Potassium 4.5 3.5 - 5.0 mmol/L [facility] LABORATORY Comment: Please note: ??Patients with WBC >100,00 0 may have falsely elevated Potassium levels. ??For accurate Potassium quantif ication in these patients send serum separator tube (gold top) for subsequent determinations. ??Contact the Clinical Chemistry Laboratory if there are any qu estions. Chloride 98 98 - 107 mmol/L [facility] CO2 22 22 - 31 mmol/L [facility] Anion Gap 12 5 - 15 mmol/L [facility] LABORATORY Calcium 8.3 (L) 8.5 - 10.5 mg/dL [facility] LABORATORY Total Protein 5.5 (L) 6.1 - 8.0 g/dL [facility] LABORATORY Albumin 3.4 3.2 - 5.2 g/dL [facility] AST 13 0 - 39 unit/L [facility] LABORATORY ALT 20 0 - 55 unit/L [facility] LABORATORY Alk Phos 84 40 - 130 unit/L [facility] Total Bilirubin 0.4 0.2 - 1.3 mg/dL [facility] LABORATORY Estimated GFR 85 >=60 mL/min/1.73 m?? [facility] Comment: This patient? s estimated glomerular filtration rate (eGFR) is between 85 mL/min/1.73 m2 (patients with less muscl e mass per kg body weight) and 99 mL/min/1.73 m2 (patients with more muscl e mass per kg body weight) as determined by the CKD-EPI equation. Asse ssment of eGFR is not appropriate when creatinine concentrations are rapidly ch anging. For clinical decisions where creatinine clearance will affect therapy , a 24-hour urine creatinine clearance may be advised. Assignment of CKD stage 1 - 5 for patien ts with an eGFR near the transition point between stages may be based on cli nical assessment of muscle mass and symptoms in addition to eGFR. Specimen Anatomical Collection Method Collection Time Receive d Time (Source) Location / / Volume Laterality Blood 07/25/2021 11:44 07/25/2021 AM EDT 12:06 PM EDT Resulting Agency Comment Spec In Lab Stephanie Bird APRN CHEMISTRY ORDERABLES Performing Organization Address City/State/[place] [address] COVID-19 PCR (07/24/2021 8:54 AM EDT) [facility] Method Time Signature SARS-CoV-2 Not Detected Not Detected [facility] LABORATORY Comment: This result should be interpreted in com bination with the clinical observations, patient history and epidem iological information in making a final diagnosis. For testing of asymptomatic i ndividuals, assay performance characteristics and clinical utility hav e not been evaluated. Testing for SARS-CoV-2 (Severe acute respiratory syn drome coronavirus 2, formerly known as 2019 novel coronavirus or 2019-nCoV) to aid in the diagnosis of COVID-19 is performed using the [employer] JESSICA S-CoV-2 Assay as authorized by the FDA Emergency Use Authorization (EUA). This EUA assay is intended for In-vitro Diagnostic (IVD) use with respiratory sp ecimens such as nasopharyngeal swabs collected from individuals during the ac elem phase of infection. This assay is performed based on the instructions for use provided by [employer] and additional guidance provided by CDC and FDA. Testing is performed in the [facility] within the Department of Pathology and Laboratory Medicine at [facility], certified under the Clinical Laboratory Improvement Amendments of 1988 (CLIA), 42 U.S.C. 263a, to perform high complexi ty tests. Assay performance has been verified according to clinical laborator y regulatory requirements for use with specimens collected from individuals chula pected of COVID-19. Test results are provided above. A result of Not Detecte d indicates that the viral RNA target is not present above the limit of detect ion, but does not preclude SARS-CoV-2 infection. False negative results may oc cur if a specimen is improperly collected, transported or handled; if am plification inhibitors are present; or if inadequate numbers of viral particles are present in the specimen. When a diagnostic test is negative, the possibi lity of a false negative result should be considered in the context of a patien t's recent exposures and the presence of clinical signs and symptoms consisten t with COVID-19. A result of Detected indicates that RNA from SARS-CoV-2 was d etected and the patient is infected. As required or requested by public health a uthorities, positive specimens may be sent for additional testing. Positive an d negative predictive values for this test are highly dependent on disease pre valence. A result of Invalid indicates that neither the viral RNA tar gets nor the internal control target was detected. An invalid result suggests the presence of inhibitors. Recollection and re-testing is recommend ed in the case of an invalid result. CDC COVID-19 criteria for testing on hum an specimens and clinical management guidance information are available at e CDC Coronavirus Disease 2019 (COVID-19) webpage under Information fo r Healthcare Professionals (https://www.cdc.gov/coronavirus/2019-nc ov/hcp/index.html) Additional information about this and ot her EUA tests can be found in provider and patient fact sheets at the following FDA website: https://www.fda.gov/medical-devices/zbiakhpifet-zzgrbvd-5732-gzbxt-66-bpmmojenq- hgw-ucxysbmtfeejxa-fhvilll-devices/kgpme-cgfiozltnsb-gxuy SARS-Cov-2 RNA Source [employer]NICIAN [employer] [facility] LABOR[facility]ORY Specimen (Source) Anatomical Collection Method Collection Time Re ceived Time Location / / Volume Laterality Nasopharyngeal Swab 07/24/2021 8:54 07/24 AM EDT 9:57 AM EDT Comment: Symptoms->Surveillance Resulting Agency Comment Spec In Lab Presley Guerin MD MICROBIOLOGY - GENERAL ORDER CHENG Performing Organization Address City/[facility]/ZIP Code Phon e Number [address] Valproic Acid Level, Total (07/24/2021 6:47 AM EDT) P athologist Signature Valproic Lvl 65 mg/L [facility] Comment: Therapeutic Range: Anticonvulsant Therapy: ??50-100 mg/L Manic Episodes Associated with Bipolar D isorder: ??50-125 mg/L Specimen Anatomical Collection Method Collection Time Receive d Time (Source) Location / / Volume Laterality Blood 07/24/2021 6:47 AM 6:58 EDT AM EDT Resulting Agency Comment Spec In Lab Marly Greer APRN CHEMISTRY ORDERABLES Performing Organization Address City/[facility]/ZIP Code Phon e Number [address] (ABNORMAL) Differential, Automated (07/24/2021 4:23 AM EDT) Patholo gist Method Time Signature Neutrophils % 87.1 % [facility] Neutr Abs (ANC) 10.81 (H) 1.70 - [facility] 6.10 [facility] x10(3)/[facility] LABORATORY Lymphocytes % 7.1 % [facility] Lymphocytes Abs 0.9 0.9 - 3.2 [facility] x10(3)/[facility] LABORATORY Monocytes % 3.5 % [facility] Monocyte Abs 0.4 0.3 - 0.9 [facility] x10(3)/[facility] LABORATORY Eosinophils % 0.0 % [facility] Eosinophils Abs 0.0 0.0 - 0.4 [facility] x10(3)/[facility] LABORATORY Basophils % 0.2 % [facility] Basophils Abs 0.0 0.0 - 0.1 [facility] x10(3)/[facility] LABORATORY Immature Gran % 2.10 % [facility] Comment: Immature granulocytes(IG's)percentage an d absolute count will include metamyelocytes, myelocytes, and promyelo cytes. Blood smears from CBCs yielding IG's will be scanned manually for concor dance. If this scan disagrees with the automated IG or if promyelocytes are not ed, a manual differential will be performed. Beba Gran Abs 0.26 (H) 0.00 - 0.04 x10(3)/[facility] LABORATORY Specimen Anatomical Collection Method Collection Time Receive d Time (Source) Location / / Volume Laterality Blood 07/24/2021 4:23 AM 4:39 EDT AM EDT Resulting Agency Comment Spec In Lab Flory Polo MD HEMATOLOGY ORDERABLES Performing Organization Address City/State/[place] [address] (ABNORMAL) Hemogram (07/24/2021 4:23 AM EDT) Analysis Performed At Patho logist Time Signature WBC 12.4 (H) 4.0 - 9.5 [facility] x10(3)/[facility] LABORATORY RBC 4.18 (L) 4.58 - [facility] x10(6)/[facility] LABORATORY Hemoglobin 12.6 (L) 13.7 - [facility] 16.5 g/dL [facility] LABORATORY Hematocrit 37.7 (L) 40.5 - [facility] [place] 48.5 % [facility] LABORATORY MCV 90.2 82.9 - [facility] LABORATORY MCH 30.1 27.5 - [facility] [place] 32.1 pg [facility] LABORATORY MCHC 33.4 32.0 - [facility] 35.7 g/dL [facility] LABORATORY Platelets 190 145 - 357 [facility] x10(3)/[facility] LABORATORY RDWSD 49.4 (H) 36.0 - [place] [place] 45.0 [facility] RDWCV 15.0 (H) 11.4 - [facility] [place] 13.8 % [facility] LABORATORY MPV 10.1 7.6 - 12.9 [facility] LABORATORY nRBC % Auto 0.0 % [facility] LABORATORY nRBC Abs Auto 0.000 0.000 - [facility] 0.000 [facility] x10(3)/[facility] LABORATORY Specimen Anatomical Collection Method Collection Time Receive d Time (Source) Location / / Volume Laterality Blood 07/24/2021 4:23 AM 4:39 EDT AM EDT Resulting Agency Comment Spec In Lab Flory Polo MD HEMATOLOGY ORDERABLES Performing Organization Address City/State/[place] [address] (ABNORMAL) Basic Metabolic Panel (non-fasting) (07/24/2021 4:23 AM EDT) P athologist Signature Glucose Lvl 133 65 - 199 [facility] mg/dL [facility] LABORATORY Comment: Diabetes: >=200 mg/dL plus symp toms BUN 28 (H) 10 - 20 mg/dL [facility] LABORATORY Creatinine 0.85 0.80 - 1.50 mg/dL [facility] LABORATORY Sodium 132 (L) 135 - 145 mmol/L [facility] LABORATORY Potassium 4.4 3.5 - 5.0 mmol/L [facility] LABORATORY Comment: Please note: ??Patients with WBC >100,00 0 may have falsely elevated Potassium levels. ??For accurate Potassium quantif ication in these patients send serum separator tube (gold top) for subsequent determinations. ??Contact the Clinical Chemistry Laboratory if there are any qu estions. Chloride 100 98 - 107 mmol/L [facility] CO2 21 (L) 22 - 31 mmol/L [facility] Anion Gap 11 5 - 15 mmol/L [facility] LABORATORY Calcium 7.9 (L) 8.5 - 10.5 mg/dL [facility] LABORATORY Estimated GFR 86 >=60 mL/min/1.73 m?? [facility] Comment: This patient? s estimated glomerular filtration rate (eGFR) is between 86 mL/min/1.73 m2 (patients with less muscl e mass per kg body weight) and 99 mL/min/1.73 m2 (patients with more muscl e mass per kg body weight) as determined by the CKD-EPI equation. Asse ssment of eGFR is not appropriate when creatinine concentrations are rapidly ch anging. For clinical decisions where creatinine clearance will affect therapy , a 24-hour urine creatinine clearance may be advised. Assignment of CKD stage 1 - 5 for patien ts with an eGFR near the transition point between stages may be based on cli nical assessment of muscle mass and symptoms in addition to eGFR. Specimen Anatomical Collection Method Collection Time Receive d Time (Source) Location / / Volume Laterality Blood 07/24/2021 4:23 AM 2 4:39 EDT AM EDT Resulting Agency Comment Spec In Lab Flory Polo MD CHEMISTRY ORDERABLES Performing Organization Address City/[facility]/ZIP Code Phon e Number [address] Valproic Acid Level, Total (07/23/2021 8:24 AM EDT) P athologist Signature Valproic Lvl 34 mg/L [facility] Comment: Therapeutic Range: Anticonvulsant Therapy: ??50-100 mg/L Manic Episodes Associated with Bipolar D isorder: ??50-125 mg/L Specimen Anatomical Collection Method Collection Time Receive d Time (Source) Location / / Volume Laterality Blood 07/23/2021 8:24 AM 2 8:39 EDT AM EDT Resulting Agency Comment Spec In Lab Samara Fierro MD CHEMISTRY ORDERABLES Performing Organization Address City/[facility]/ZIP [facility] Phon e Number [address] (ABNORMAL) Differential, Automated (07/23/2021 4:57 AM EDT) Patholo gist Method Time Signature Neutrophils % 87.6 % [facility]ORATORY Neutr Abs (ANC) 11.64 (H) 1.70 - [facility] 6.10 [facility] x10(3)/[facility] L LABORATORY Lymphocytes % 6.3 % [facility] LABORATORY Lymphocytes Abs 0.8 (L) 0.9 - 3.2 [facility] x10(3)/[facility] LABORATORY Monocytes % 3.5 % [facility] LABORATORY Monocyte Abs 0.5 0.3 - 0.9 [facility] x10(3)/[facility] LABORATORY Eosinophils % 0.1 % [facility] LABORATORY Eosinophils Abs 0.0 0.0 - 0.4 [facility] x10(3)/[facility] LABORATORY Basophils % 0.2 % [facility] LABORATORY Basophils Abs 0.0 0.0 - 0.1 [facility] x10(3)/[facility] LABORATORY Immature Gran % 2.30 % [facility]ORY Comment: Immature granulocytes(IG's)percentage an d absolute count will include metamyelocytes, myelocytes, and promyelo cytes. Blood smears from CBCs yielding IG's will be scanned manually for concor dance. If this scan disagrees with the automated IG or if promyelocytes are not ed, a manual differential will be performed. Beba Gran Abs 0.30 (H) 0.00 - 0.04 x10(3)/[facility] LABORATORY Specimen Anatomical Collection Method Collection Time Receive d Time (Source) Location / / Volume Laterality Blood 07/23/2021 4:57 AM 5:14 EDT AM EDT Resulting Agency Comment Spec In Lab Flory Polo MD HEMATOLOGY ORDERABLES Performing Organization Address City/State/[place] [address] (ABNORMAL) Hemogram (07/23/2021 4:57 AM EDT) Analysis Performed At Patho logist Time Signature WBC 13.3 (H) 4.0 - 9.5 [facility] x10(3)/[facility] LABORATORY RBC 4.25 (L) 4.58 - [facility] 5.54 [facility] x10(6)/[facility] LABORATORY Hemoglobin 12.7 (L) 13.7 - [facility] 16.5 g/dL [facility] LABORATORY Hematocrit 37.7 (L) 40.5 - [facility] 48.5 % [facility] LABORATORY MCV 88.7 82.9 - [facility] 93.1 [facility] LABORATORY MCH 29.9 27.5 - [facility] [place] 32.1 pg [facility] LABORATORY MCHC 33.7 32.0 - [facility] [place] 35.7 g/dL [facility] LABORATORY Platelets 203 145 - 357 [facility] LABORATORY RDWSD 47.6 (H) 36.0 - [facility] [place] 45.0 [facility] LABORATORY RDWCV 14.8 (H) 11.4 - [facility] 13.8 % [facility] LABORATORY MPV 9.8 7.6 - 12.9 [facility] LABORATORY nRBC % Auto 0.0 % [facility] LABORATORY nRBC Abs Auto 0.000 0.000 - [facility] 0.000 [facility] x10(3)/[facility] LABORATORY Specimen Anatomical Collection Method Collection Time Receive d Time (Source) Location / / Volume Laterality Blood 07/23/2021 4:57 AM 2 5:14 EDT AM EDT Resulting Agency Comment Spec In Lab Flory Polo MD HEMATOLOGY ORDERABLES Performing Organization Address City/State/[place] [address] (ABNORMAL) Hepatic Function Panel (07/23/2021 4:57 AM EDT) P athologist Signature Total Protein 5.3 (L) 6.1 - 8.0 [facility] g/dL [facility] LABORATORY Albumin 3.2 3.2 - 5.2 [facility] g/dL [facility] LABOR[facility] AST 13 0 - 39 [facility] [place] unit/L [facility] ALT 22 0 - 55 [facility] [place] unit/L [facility] LABORATORY Alk Phos 83 40 - 130 [facility] [place] unit/L [facility] LABORATORY Total 0.4 0.2 - 1.3 [facility] [place] Bilirubin mg/dL [facility] LABORATORY Bili, Direct 0.1 0.0 - 0.3 [facility] [place] mg/dL [facility] LABORATORY Specimen Anatomical Collection Method Collection Time Receive d Time (Source) Location / / Volume Laterality Blood 07/23/2021 4:57 AM 2 5:14 EDT AM EDT Resulting Agency Comment Spec In Lab Samara Fierro MD CHEMISTRY ORDERABLES Performing Organization Address City/State/[place] [address] (ABNORMAL) Basic Metabolic Panel (non-fasting) (07/23/2021 4:57 AM EDT) athologist Signature Glucose Lvl 133 65 - 199 [facility] mg/dL [facility] Comment: Diabetes: >=200 mg/dL plus symp toms BUN 27 (H) 10 - 20 mg/dL [facility] LABORATORY Creatinine 0.82 0.80 - 1.50 mg/dL [facility] LABORATORY Sodium 131 (L) 135 - 145 mmol/L [facility] LABORATORY Potassium 4.1 3.5 - 5.0 mmol/L [facility]ORATORY Comment: Please note: ??Patients with WBC >100,00 0 may have falsely elevated Potassium levels. ??For accurate Potassium quantif ication in these patients send serum separator tube (gold top) for subsequent determinations. ??Contact the Clinical Chemistry Laboratory if there are any qu estions. Chloride 98 98 - 107 mmol/L [facility] CO2 20 (L) 22 - 31 mmol/L [facility] Anion Gap 13 5 - 15 mmol/L [facility] LABORATORY Calcium 8.2 (L) 8.5 - 10.5 mg/dL [facility] LABORATORY Estimated GFR 87 >=60 mL/min/1.73 m?? [facility] Comment: This patient? s estimated glomerular filtration rate (eGFR) is between 87 mL/min/1.73 m2 (patients with less muscl e mass per kg body weight) and 101 mL/min/1.73 m2 (patients with more muscl e mass per kg body weight) as determined by the CKD-EPI equation. Asse ssment of eGFR is not appropriate when creatinine concentrations are rapidly ch anging. For clinical decisions where creatinine clearance will affect therapy , a 24-hour urine creatinine clearance may be advised. Assignment of CKD stage 1 - 5 for patien ts with an eGFR near the transition point between stages may be based on cli nical assessment of muscle mass and symptoms in addition to eGFR. Specimen Anatomical Collection Method Collection Time Receive d Time (Source) Location / / Volume Laterality Blood 07/23/2021 4:57 AM 2 5:14 EDT AM EDT Resulting Agency Comment Spec In Lab Flory Polo MD CHEMISTRY ORDERABLES Performing Organization Address City/State/[place] [address] Rad Onc Neuro Interp Only (07/22/2021 3:34 PM EDT) Anatomical Region Laterality Modality Head Computed Tomography Specimen (Source) Anatomical Location Collection Method / Collectio n Time Received Time / Laterality Volume Impressions 07/22/2021 4:12 PM EDT Expected findings. Thank you for letting us participate in the care of this patient. ??If you are a health care provider and have any questi ons regarding this report, please contact the number below. ??For patients who have questions please contact the health lead caregiver that requested your imaging first. ? Narrative 07/22/2021 4:12 PM EDT EXAMINATION: CT RAD ONC NEURO INTERP ONLY CLINICAL HISTORY: Newly diagnosed brain metastases. ??Rapid re-growth following resections on 07/01/21 (left frontal and parietal craniotomies). ??Primary: likely lung adenocarcinoma, 10% PD-L1. TECHNIQUE: CT scan was obtained from the top of the head to the thyroid cartilage without contrast. COMPARISON: MRI of brain and CT scan head 07/21/2021. FINDINGS: The 5 mass lesion seen on the prior CT s can and MRI are stable in size. Associated vasogenic edema is unchanged as is local mass effect. Minimal [id number]-rr-[id number] midline shift is stable. N o downward transtentorial herniation. Stable arachnoid cyst in the anterior as pect of the right middle fossa. Procedure Note Hemant Vanegas MD - 07/22/2021Formatting o f this note might be different from the original. EXAMINATION: CT RAD ONC NEURO INTERP ONL Y CLINICAL HISTORY: Newly diagnosed brain metastases. Rapid re-growth following resections on 07/01/21 (left frontal and parietal craniotomies). Primary: likely lung adenocarcinoma, 10% PD-L1. TECHNIQUE: CT scan was obtained from the top of the head to the thyroid cartilage without contrast. COMPARISON: MRI of brain and CT scan head 07/21/2021. FINDINGS: The 5 mass lesion seen on the prior CT s can and MRI are stable in size. Associated vasogenic edema is unchanged as is local mass effect. Minimal vyml-ny-nqqxo midline shift is stable. N o downward transtentorial herniation. Stable arachnoid cyst in the anterior as pect of the right middle fossa. IMPRESSION Expected findings. Thank you for letting us participate in the care of this patient. If you are a health care provider and have any questi ons regarding this report, please contact the number below. For patients w ho have questions please contact the health lead caregiver that requested your imaging first. Electronically signed by: Hemant Vanegas MD , [facility] ([phone]), at 07/22/2021 4:12 PM Humza Laura MD IMG OUTSIDE INTERPRETATION O RDERABLES (ABNORMAL) Differential, Automated (07/22/2021 4:59 AM EDT) [facility] Method Time Signature Neutrophils % 85.3 % [facility] LABORATORY Neutr Abs (ANC) 8.39 (H) 1.70 - [facility] 6.10 [facility] x10(3)/[facility] LABORATORY Lymphocytes % 8.7 % [facility] LABORATORY Lymphocytes Abs 0.9 0.9 - 3.2 [facility] x10(3)/[facility] LABORATORY Monocytes % 1.7 % [facility] LABORATORY Monocyte Abs 0.2 (L) 0.3 - 0.9 [facility] x10(3)/[facility] LABORATORY Eosinophils % 0.0 % [facility]ORY Eosinophils Abs 0.0 0.0 - 0.4 [facility] x10(3)/[facility] LABORATORY Basophils % 0.4 % [facility] Basophils Abs 0.0 0.0 - 0.1 [facility] x10(3)/[facility] LABORATORY Immature Gran % 3.90 % [facility] Comment: Immature granulocytes(IG's)percentage an d absolute count will include metamyelocytes, myelocytes, and promyelo cytes. Blood smears from CBCs yielding IG's will be scanned manually for concor dance. If this scan disagrees with the automated IG or if promyelocytes are not ed, a manual differential will be performed. Beba Gran Abs 0.38 (H) 0.00 - 0.04 x10(3)/[facility] LABORATORY Specimen Anatomical Collection Method Collection Time Receive d Time (Source) Location / / Volume Laterality Blood 07/22/2021 4:59 AM 2 5:05 EDT AM EDT Resulting Agency Comment Spec In Lab Flory Polo MD HEMATOLOGY ORDERABLES Performing Organization Address City/State/[place] [address] (ABNORMAL) Hemogram (07/22/2021 4:59 AM EDT) Analysis Performed At Patho logist Time Signature WBC 9.8 (H) 4.0 - 9.5 [facility] x10(3)/[facility] LABORATORY RBC 4.35 (L) 4.58 - [facility] 5.54 [facility] x10(6)/[facility] LABORATORY Hemoglobin 13.2 (L) 13.7 - [facility] 16.5 g/dL [facility] LABORATORY Hematocrit 39.3 (L) 40.5 - [facility] 48.5 % [facility] LABORATORY MCV 90.3 82.9 - [facility] 93.1 [facility] LABORATORY MCH 30.3 27.5 - [facility] 32.1 pg [facility] LABORATORY MCHC 33.6 32.0 - [facility] [place] 35.7 g/dL [facility] LABORATORY Platelets 217 145 - 357 [facility] x10(3)/[facility] LABORATORY RDWSD 48.8 (H) 36.0 - [facility] 45.0 [facility] LABORATORY RDWCV 14.9 (H) 11.4 - [facility] 13.8 % [facility] LABORATORY MPV 9.9 7.6 - 12.9 [facility] LABORATORY nRBC % Auto 0.0 % [facility]ATORY nRBC Abs Auto 0.000 0.000 - [facility] 0.000 [facility] x10(3)/[facility] LABORATORY Specimen Anatomical Collection Method Collection Time Receive d Time (Source) Location / / Volume Laterality Blood 07/22/2021 4:59 AM 2 5:05 EDT AM EDT Resulting Agency Comment Spec In Lab Flory Polo MD HEMATOLOGY ORDERABLES Performing Organization Address City/State/[place] [address] Ammonia (07/22/2021 4:59 AM EDT) P athologist Signature Ammonia 33 16 - 60 [facility] mcmol/L [facility] LABORATORY Specimen Anatomical Collection Method Collection Time Receive d Time (Source) Location / / Volume Laterality Blood 07/22/2021 4:59 AM 2 5:05 EDT AM EDT Resulting Agency Comment Spec In Lab Stephanie Bird APRN CHEMISTRY ORDERABLES Performing Organization Address City/[facility]/[place] [address] (ABNORMAL) Hepatic Function Panel (07/22/2021 4:59 AM EDT) P athologist Signature Total Protein 5.5 (L) 6.1 - 8.0 [facility] g/dL [facility] LABORATORY Albumin 3.3 3.2 - 5.2 [facility] g/dL [facility] LABORATORY AST 17 0 - 39 [facility] unit/L [facility] ALT 28 0 - 55 [facility] unit/L [facility] LABORATORY Alk Phos 100 40 - 130 [facility] LAB[facility]ATORY Total 0.3 0.2 - 1.3 [facility] mg/dL [facility] LABORATORY Bili, Direct 0.1 0.0 - 0.3 [facility] mg/dL [facility] LABORATORY Specimen Anatomical Collection Method Collection Time Receive d Time (Source) Location / / Volume Laterality Blood 07/22/2021 4:59 AM 5:05 EDT AM EDT Resulting Agency Comment Spec In Lab Stephanie Bird APRN CHEMISTRY ORDERABLES Performing Organization Address City/State/[place] [address] (ABNORMAL) Basic Metabolic Panel (non-fasting) (07/22/2021 4:59 AM EDT) P athologist Signature Glucose Lvl 154 65 - 199 [facility] mg[facility]dL [facility] LAB[facility]ORY Comment: Diabetes: >=200 mg/dL plus symp toms BUN 28 (H) 10 - 20 mg/dL [facility] LABORATORY Creatinine 0.93 0.80 - 1.50 mg/dL [facility] LABORATORY Sodium 132 (L) 135 - 145 mmol/L [facility] LABORATORY Potassium 4.4 3.5 - 5.0 mmol/L [facility] LABORATORY Comment: Please note: ??Patients with WBC >100,00 0 may have falsely elevated Potassium levels. ??For accurate Potassium quantif ication in these patients send serum separator tube (gold top) for subsequent determinations. ??Contact the Clinical Chemistry Laboratory if there are any qu estions. Chloride 100 98 - 107 mmol/L [facility] CO2 19 (L) 22 - 31 mmol/L [facility] Anion Gap 13 5 - 15 mmol/L [facility] LABORATORY Calcium 8.3 (L) 8.5 - 10.5 mg/dL [facility] LABORATORY Estimated GFR 81 >=60 mL/min/1.73 m?? [facility] Comment: This patient? s estimated glomerular filtration rate (eGFR) is between 81 mL/min/1.73 m2 (patients with less muscl e mass per kg body weight) and 93 mL/min/1.73 m2 (patients with more muscl e mass per kg body weight) as determined by the CKD-EPI equation. Asse ssment of eGFR is not appropriate when creatinine concentrations are rapidly ch anging. For clinical decisions where creatinine clearance will affect therapy , a 24-hour urine creatinine clearance may be advised. Assignment of CKD stage 1 - 5 for patien ts with an eGFR near the transition point between stages may be based on cli nical assessment of muscle mass and symptoms in addition to eGFR. Specimen Anatomical Collection Method Collection Time Receive d Time (Source) Location / / Volume Laterality Blood 07/22/2021 4:59 AM 2 5:05 EDT AM EDT Resulting Agency Comment Spec In Lab Flory Polo MD CHEMISTRY ORDERABLES Performing Organization Address City/State/[place] [address] COVID-19 PCR (07/21/2021 5:00 PM EDT) [facility] Method Time Signature SARS-CoV-2 Not Detected Not Detected [facility] RNA PCR [facility] Comment: This result should be interpreted in com bination with the clinical observations, patient history and epidem iological information. For testing of asymptomatic individuals, assay performa nce characteristics and clinical utility have not been evaluated. Testing for SARS-CoV-2 (Severe acute respiratory syndrome coronavirus 2, form erly known as 2019 novel coronavirus or 2019-nCoV) to aid in the diagnosis of CO VID-19 is performed using the Simplexa COVID-19 Direct Assay by [employer] franks as authorized by the FDA issued Emergency Use Authorization (EUA). This assay is intended for In-vitro Diagnostic (IVD) use with nasopharyngeal swabs collected from individuals meeting the CDC criteria for testing. Th e assay is performed based on the instructions for use and additional guid ance provided by the FDA. Testing is performed in the Microbiology Laboratory within the Department of Pathology and Laboratory Medicine at [facility], certified under the Clinical Laboratory Improvement Amendmen ts of 1988 (CLIA), 42 U.S.C. section 263a, to perform high complexity tests. Assay performance has been verified according to clinical laboratory regulat ory requirements. Test results are provided above. A resul t of Not Detected indicates that the viral RNA target is not present but does not preclude SARS-CoV-2 infection. False negative results may occur if a sp ecimen is improperly collected, transported or handled; if amplification inhibitors are present; or if inadequate numbers of viral particles ar e present in the specimen. A result of Detected suggests a current or recent infection and the patient is presumed to be infected. Positive and negative pr edictive values for this test are highly dependent on disease prevalence. A result of Invalid indicates the inability to conclusively determine the presence or absence of SARS-CoV-2 RNA in the sample which can be due to a vari ety of factors. Recollection is recommended in the case of an invalid re sult. CDC COVID-19 criteria for testing on hum an specimens and clinical management guidance information are available at [facility] CDC Coronavirus Disease 2019 (COVID-19) webpage under Information fo r Healthcare Professionals (https://www.cdc.gov/coronavirus/2019-nc ov/hcp/index.html). 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 Swab [facility] Specimen (Source) Anatomical Collection Method Collection Time Re ceived Time Location / / Volume Laterality Nasopharyngeal Swab 07/21/2021 5:00 07/21 PM EDT 6:44 PM EDT Comment: Symptoms->Surveillance Resulting Agency Comment Spec In Lab Héctor Cuellar MD MICROBIOLOGY - GENERAL ORDER CHENG Performing Organization Address City/State/[place] [address] MRI Brain wwo Contrast (Generic) (07/21/2021 3:51 PM EDT) Anatomical Region Laterality Modality Head Magnetic Resonance Specimen (Source) Anatomical Location Collection Method / Collectio n Time Received Time / Laterality Volume Impressions 07/21/2021 4:04 PM EDT 1. ??Interval metastatic recurrence in the two prior left-sided surgical beds with shifting edema as discussed. 2. ??Mild interval enlargement of 2 post erior right frontal metastatic lesions and a new subcentimeter metastatic lesio n in the anteromedial left temporal lobe. Thank you for letting us participate in the care of this patient. ??If you are a health care provider and have any questi ons regarding this report, please contact the number below. ??For patients who have questions please contact the health lead caregiver that requested your imaging first. ? Electronically signed by: Hemant Vanegas MD , 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 Interval recurrence of metastases in the left frontal and medial left parietal resection site as noted previously with lesions that measure up to 2.7 cm and 3.8 cm respectively in the axial plane. Mild increased edema about the left parietal lobe lesion and decreased edema about the left frontal lobe lesion. There is also been mild interval enlarge ment of 2 metastatic lesions in the posterior right frontal lobe that measur e up to 2.2 and 1.1 cm in the axial plane, previously 1.4 and 0.5 cm. There is also a new lesion in the rolly medial left temporal lobe that measures 0.4 cm. Mild dural enhancement is noted in the l eft parietal and anterior left frontal regions, nonspecific. Minimal [id number]-[id number] midline shift with no uncal herniation or downward transtentorial herniation. Stable small arachnoid cyst in the anter ior aspect of the right middle fossa. Procedure Note Hemant Vanegas MD - 07/21/2021Formatting o f this note might be different from the original. 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 Interval recurrence of metastases in the left frontal and medial left parietal resection site as noted previously with lesions that measure up to 2.7 cm and 3.8 cm respectively in the axial plane. Mild increased edema about the left parietal lobe lesion and decreased edema about the left frontal lobe lesion. There is also been mild interval enlarge ment of 2 metastatic lesions in the posterior right frontal lobe that measur e up to 2.2 and 1.1 cm in the axial plane, previously 1.4 and 0.5 cm. There is also a new lesion in the rolly medial left temporal lobe that measures 0.4 cm. Mild dural enhancement is noted in the l eft parietal and anterior left frontal regions, nonspecific. Minimal qvoy-fz-vmtnd midline shift with no uncal herniation or downward transtentorial herniation. Stable small arachnoid cyst in the anter ior aspect of the right middle fossa. IMPRESSION 1. 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 2. Mild interval enlargement of 2 pharmacovigilance specialist ior right frontal metastatic lesions and a new subcentimeter metastatic lesio n in the anteromedial left temporal lobe. Thank you for letting us participate in the care of this patient. If you are a health care provider and have any questi ons regarding this report, please contact the number below. For patients w ho have questions please contact the health lead caregiver that requested your imaging first. Electronically signed by: Hemant Vanegas MD , [facility] ([phone]), at 07/21/2021 4:04 PM Héctor Cuellar MD IMG MRI ORDERABLES CT Head wo Contrast (Generic) (07/21/2021 11:08 AM EDT) Anatomical Region Laterality Modality Head Computed Tomography Specimen (Source) Anatomical Collection Method Collection Time Re ceived Time Location / / Volume Laterality 07/21/2021 11:28 AM EDT Impressions 07/21/2021 11:33 AM EDT Increased size of hyperdense metastases along both cerebral convexities. Increased left frontoparietal vasogenic edema, sulcal effacement and mass effect on the left lateral ventricle. Similar v asogenic edema surrounding the right frontal convexity lesions. Thank you for letting us participate in the care of this patient. ??If you are a health care provider and have any questi ons regarding this report, please contact the number below. ??For patients who have questions please contact the health lead caregiver that requested your imaging first. ? Electronically signed by: Debo Davies MD, [facility] ([phone]), at 07/21/2021 11:33 AM Narrative 07/21/2021 11:33 AM EDT EXAMINATION: CT HEAD WO CONTRAST (GENERIC) CLINICAL HISTORY: Brain metastases, aleena tor Worsening R sided weakness 3 days durati on TECHNIQUE: CT head performed without intravenous co ntrast administration. COMPARISON: CT head July 13, 2021. Reference is also m gabino to CT head June 28, 2021 and MRI brain June 30, 2021. FINDINGS: Postsurgical changes associated with lef t frontal and parietal craniotomies for resection of metastases. A stable 4 mm l eft frontal subcortical collection exerts minimal mass effect. There is increased thickness of hyperden se tumor at the periphery of the left frontoparietal resection cavity, measuri ng 3.8 cm AP and 1.4 cm in thickness, compared to 2.7 cm and 7 mm on July 13. Increased thickness of tumor at the periphery of the left anterior frontal r esection cavity measuring up to 11 mm today, compared to 8 mm on the 2021. Extensive left frontoparietal vasogenic edema, increased, with increased effacem ent of the sulci and of mass effect and downward displacement of the left latera l ventricle. Hyperdense tumor along the high right po sterior frontal convexity is increased in size to 2.2 cm from 1.6 cm previously . Hyperintense 9 mm tumor in the right precentral gyrus has increased from 6 mm previously. Similar vasogenic edema surrounding both lesions. 3 mm left to right midline shift at the level of the septum pellucidum, stable. Stable right middle cranial fossa arachn oid cyst. Visible paranasal sinuses, mastoid air cells and middle ear cavitie s are clear. Foramen magnum is patent. Procedure Note Debo Davies MD - 07/21/2021Formatt ing of this note might be different from the original. EXAMINATION: CT HEAD WO CONTRAST (GENERI C) CLINICAL HISTORY: Brain metastases, aleena tor Worsening R sided weakness 3 days durati on TECHNIQUE: CT head performed without intravenous co ntrast administration. COMPARISON: CT head July 13, 2021. Reference is also m gabino to CT head June 28, 2021 and MRI brain June 30, 2021. FINDINGS: Postsurgical changes associated with lef t frontal and parietal craniotomies for resection of metastases. A stable 4 mm l eft frontal subcortical collection exerts minimal mass effect. There is increased thickness of hyperden se tumor at the periphery of the left frontoparietal resection cavity, measuri ng 3.8 cm AP and 1.4 cm in thickness, compared to 2.7 cm and 7 mm on July 13. Increased thickness of tumor at the periphery of the left anterior frontal r esection cavity measuring up to 11 mm today, compared to 8 mm on the 2021. Extensive left frontoparietal vasogenic edema, increased, with increased effacem ent of the sulci and of mass effect and downward displacement of the left latera l ventricle. Hyperdense tumor along the high right po sterior frontal convexity is increased in size to 2.2 cm from 1.6 cm previously . Hyperintense 9 mm tumor in the right precentral gyrus has increased from 6 mm previously. Similar vasogenic edema surrounding both lesions. 3 mm left to right midline shift at the level of the septum pellucidum, stable. Stable right middle cranial fossa arachn oid cyst. Visible paranasal sinuses, mastoid air cells and middle ear cavitie s are clear. Foramen magnum is patent. IMPRESSION Increased size of hyperdense metastases along both cerebral convexities. Increased left frontoparietal vasogenic edema, sulcal effacement and mass effect on the left lateral ventricle. Similar v asogenic edema surrounding the right frontal convexity lesions. Thank you for letting us participate in the care of this patient. If you are a health care provider and have any questi ons regarding this report, please contact the number below. For patients w ho have questions please contact the health lead caregiver that requested your imaging first. Héctor Cuellar MD IMG CT ORDERABLES Gold Tube HOLD (07/21/2021 10:50 AM EDT) athologist Signature Gold Hold Sample in [facility] LABORATORY Specimen Anatomical Collection Method Collection Time Receive d Time (Source) Location / / Volume Laterality Blood Venous Draw / 07/21/2021 10:50 07/21/2021 Unknown AM EDT 11:13 AM EDT Geovanny Vaughan MD CHEMISTRY ORDERABLES Performing Organization Address City/[facility]/ZIP Code Phon e Number [place] [id number] Blue Tube HOLD (07/21/2021 10:50 AM EDT) athologist Signature Blue Hold Sample in [facility] LABORATORY Specimen Anatomical Collection Method Collection Time Receive d Time (Source) Location / / Volume Laterality Blood Venous Draw / 07/21/2021 10:50 07/21/2021 Unknown AM EDT 11:13 AM EDT Geovanny Vaughan MD HEMATOLOGY ORDERABLES Performing Organization Address City/[facility]/[place] [address] (ABNORMAL) Differential, Automated (07/21/2021 10:50 AM EDT) Patholo gist Method Time Signature Neutrophils % 69.5 % [facility] LAB[facility] Neutr Abs (ANC) 10.71 (H) 1.70 - [facility] 6.10 [facility] x10(3)/[facility] LABORATORY Lymphocytes % 16.4 % [facility] Lymphocytes Abs 2.5 0.9 - 3.2 [facility] x10(3)/[facility] LABORATORY Monocytes % 9.5 % [facility] Monocyte Abs 1.5 (H) 0.3 - 0.9 [facility] x10(3)/[facility] LABORATORY Eosinophils % 1.7 % [facility] Eosinophils Abs 0.3 0.0 - 0.4 [facility] x10(3)/[facility] LABORATORY Basophils % 0.4 % [facility] Basophils Abs 0.1 0.0 - 0.1 [facility] x10(3)/[facility] LABORATORY Immature Gran % 2.50 % [facility] Comment: Immature granulocytes(IG's)percentage an d absolute count will include metamyelocytes, myelocytes, and promyelo cytes. Blood smears from CBCs yielding IG's will be scanned manually for concor dance. If this scan disagrees with the automated IG or if promyelocytes are not ed, a manual differential will be performed. Beba Gran Abs 0.39 (H) 0.00 - 0.04 x10(3)/[facility] LABORATORY Specimen Anatomical Collection Method Collection Time Receive d Time (Source) Location / / Volume Laterality Blood 07/21/2021 10:50 07/21/2021 AM EDT 11:12 AM EDT Resulting Agency Comment Spec In Lab Geovanny Vaughan MD HEMATOLOGY ORDERABLES Performing Organization Address City/State/[place] [address] (ABNORMAL) Hemogram (07/21/2021 10:50 AM EDT) Analysis Performed At Patho logist Time Signature WBC 15.4 (H) 4.0 - 9.5 [facility] x10(3)/[facility] LABORATORY RBC 4.95 4.58 - [facility] 5.54 [facility] x10(6)/[facility] LABORATORY Hemoglobin 15.1 13.7 - [facility]/dL [facility] LAB[facility] Hematocrit 44.7 40.5 - [facility] MCDERMOT[facility] 48.5 % [facility] LAB[facility]ATORY MCV 90.3 82.9 - [facility]1 [facility] LABORATORY MCH 30.5 27.5 - [facility] 32.1 pg [facility] LABORATORY MCHC 33.8 32.0 - [facility] 35.7 g/dL [facility] LAB[facility] Platelets 266 145 - 357 [facility] x10(3)/[facility] LABORATORY RDWSD 48.7 (H) 36.0 - [facility] 45.0 [facility] LABORATORY RDWCV 14.9 (H) 11.4 - [facility] 13.8 % [facility] LABORATORY MPV 10.0 7.6 - 12.9 [facility] LABORATORY nRBC % Auto 0.0 % [facility] nRBC Abs Auto 0.000 0.000 - [facility] 0.000 [facility] x10(3)/[facility] LABORATORY Specimen Anatomical Collection Method Collection Time Receive d Time (Source) Location / / Volume Laterality Blood 07/21/2021 10:50 07/21/2021 AM EDT 11:12 AM EDT Resulting Agency Comment Spec In Lab Geovanny Vaughan MD HEMATOLOGY ORDERABLES Performing Organization Address City/State/[place] [address] (ABNORMAL) Basic Metabolic Panel (non-fasting) (07/21/2021 10:50 AM EDT) P athologist Signature Glucose Lvl 116 65 - 199 [facility] mg[facility]dL [facility] Comment: Diabetes: >=200 mg/dL plus symp toms BUN 28 (H) 10 - 20 mg/dL [facility] LABORATORY Creatinine 0.96 0.80 - 1.50 mg/dL [facility] LABORATORY Sodium 135 135 - 145 mmol/L [facility] Potassium 4.0 3.5 - 5.0 mmol/L [facility] Comment: Please note: ??Patients with WBC >100,00 0 may have falsely elevated Potassium levels. ??For accurate Potassium quantif ication in these patients send serum separator tube (gold top) for subsequent determinations. ??Contact the Clinical Chemistry Laboratory if there are any qu estions. Chloride 99 98 - 107 mmol/L [facility] CO2 21 (L) 22 - 31 mmol/L [facility] Anion Gap 15 5 - 15 mmol/L [facility] LABORATORY Calcium 8.5 8.5 - 10.5 mg/dL [facility] Estimated GFR 78 >=60 mL/min/1.73 m?? [facility] Comment: This patient? s estimated glomerular filtration rate (eGFR) is between 78 mL/min/1.73 m2 (patients with less muscl e mass per kg body weight) and 90 mL/min/1.73 m2 (patients with more muscl e mass per kg body weight) as determined by the CKD-EPI equation. Asse ssment of eGFR is not appropriate when creatinine concentrations are rapidly ch anging. For clinical decisions where creatinine clearance will affect therapy , a 24-hour urine creatinine clearance may be advised. Assignment of CKD stage 1 - 5 for patien ts with an eGFR near the transition point between stages may be based on cli nical assessment of muscle mass and symptoms in addition to eGFR. Specimen Anatomical Collection Method Collection Time Receive d Time (Source) Location / / Volume Laterality Blood 07/21/2021 10:50 07/21/2021 AM EDT 11:12 AM EDT Resulting Agency Comment Spec In Lab Héctor Cuellar MD CHEMISTRY ORDERABLES Performing Organization Address City/State/[place] [address] POCT Glucose (07/21/2021 10:38 AM EDT) P athologist Signature POC Glucose 106 65 - 199 [facility] mg/dL [facility] LAB[facility] Comment: Supplemental ranges: <140 mg/dL before meals <180 mg/dL all other times of the day Specimen Anatomical Collection Method Collection Time Receive d Time (Source) Location / / Volume Laterality Blood 07/21/2021 10:38 07/21/2021 AM EDT 10:38 AM EDT Md Emergency Dept POINT OF CARE TEST ORDERABLE S Performing Organization Address City/State/[place] [address] documented in this encounter Visit Diagnoses Diagnosis Right sided weakness - Primary Muscle weakness (generalized) 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 Right hemiplegia Hemiplegia, unspecified, affecting unspe cified side documented in this encounter Admitting Diagnoses Diagnosis Right sided weakness Muscle weakness (generalized) Right hemiplegia Hemiplegia, unspecified, affecting unspe cified side documented in this encounter Administered Medications Inactive Administered Medications - up to 3 most recent administrations Medication Order MAR Action Action Date Dose Rate Site atorvastatin (Lipitor) tablet 80 mg Given 08/11/2021 5:49 PM EDT 80 mg 80 mg, Oral, EVERY EVENING, First dose on Helen 07/21/21 at 2015, Until Discontinued, Routine Given 08/10/2021 6:10 PM EDT 80 mg Given 08/09/2021 5:40 PM EDT 80 mg bisacodyL (Dulcolax) suppository 10 mg Given 08/03/2021 9:58 AM EDT 10 mg 10 mg, Rectal, DAILY PRN, Starting on Sun07/24/21 at 0859, Until Sun08/12/21 at 1827, Constipation, Routine Given 07/25/2021 9:19 AM EDT 10 mg calcium carbonate (Tums) chewable tablet 500 Given 8:11 PM EDT 500 mg mg 500 mg, Oral, 2 TIMES DAILY, First dose on Sun07/26/21 at 0915, Until Discontinued, Routine Given 08/05/2021 8:23 PM EDT 500 mg Given 07/31/2021 9:31 AM EDT 500 mg calcium carbonate (Tums) chewable tablet 500 Given 3:33 AM EDT 500 mg mg 500 mg, Oral, ONCE, 1 dose, On Sun08/03/21 at 0415, Give 500 mg (1 tablet) for mild to moderate heartburn. Give 1,000 mg (2 tablets) for severe heartburn., STAT carboxymethylcellulose (Refresh Plus) 0. 5 % ophthalmic drops 1 drop 1 drop, Both Eyes, 3 TIMES DAILY PRN, St arting on Sun07/28/21 at 1511, Until Sun08/12/21 at 1827, Dry Eyes, Routine dexamethasone (Decadron) injection 4 mg Given 08/03/2021 12:11 PM EDT 4 mg 4 mg, Intravenous, EVERY 6 HOURS SCHEDULED, First dose (after last modification) on Sun08/02/21 at 1800, Until Discontinued Given 08/03/2021 5:33 AM EDT 4 mg Given 08/03/2021 12:20 AM EDT 4 mg dexamethasone (Decadron) tablet 2 mg Given 08/12/2021 1:49 PM EDT 2 mg 2 mg, Oral, EVERY 8 HOURS SCHEDULED, First dose (after last modification) on Sun08/11/21 at 2200, Until Discontinued, Routine Given 08/12/2021 5:14 AM EDT 2 mg Given 08/11/2021 10:58 PM EDT 2 mg dexamethasone (Decadron) tablet 4 mg Given 08/11/2021 11:15 AM EDT 4 mg 4 mg, Oral, EVERY 6 HOURS SCHEDULED, First dose on Sun08/03/21 at 1800, Until Discontinued, Routine Given 08/11/2021 5:12 AM EDT 4 mg Given 08/10/2021 11:31 PM EDT 4 mg dexamethasone (PF) (Decadron) (10 mg/mL) Given 07/21/2021 2:41 P M EDT 10 mg injection 10 mg 10 mg, Intravenous, ONCE, 1 dose, On Sun07/21/21 at 1436 dexamethasone (PF) (Decadron) (10 mg/mL) Given 08/02/2021 11:24 AM EDT 6 mg injection 6 mg 6 mg, Intravenous, EVERY 6 HOURS SCHEDULED, First dose on Sun07/21/21 at 2015, Until Discontinued Given 08/02/2021 5:29 AM EDT 6 mg Given 08/01/2021 11:16 PM EDT 6 mg divalproex EC (Depakote) tablet 500 mg Given 08/12/2021 8:50 AM EDT 500 mg 500 mg, Oral, 2 TIMES DAILY, First dose on Helen 07/21/21 at 2100, Until Discontinued, DO NOT SPLIT, CRUSH OR OPEN, Routine Given 08/11/2021 8:55 PM EDT 500 mg Given 08/11/2021 8:58 AM EDT 500 mg enoxaparin (Lovenox) (40 mg/0.4 mL) Given 08/11/2021 8:55 PM EDT 40 mg subcutaneous injection 40 mg 40 mg, Subcutaneous, NIGHTLY, First dose on [facility] 08/06/21 at 2100, Until Discontinued, Routine Given 08/10/2021 8:05 PM EDT 40 mg Given 08/09/2021 8:16 PM EDT 40 mg gadoterate meglumine (Dotarem) (0.5 mMol/mL) Given 02/2022 3:52 PM EDT 16 mLs injection solution 0-100 mL 0-100 mL, Intravenous, ONCE PRN, 1 dose, Starting on Helen 07/21/21 at 1552, Until Helen 07/21/21 at 1552, Per Protocol, Radiology Contrast, Routine heparin (porcine) (5,000 units/1 mL) Given 08/05/2021 5:40 AM ED T 5,000 Units subcutaneous injection 5,000 Units 5,000 Units, Subcutaneous, EVERY 8 HOURS SCHEDULED, First dose on Helen 07/21/21 at 2200, Until Discontinued, Routine Given 08/04/2021 9:19 PM EDT 5,000 Units Given 08/04/2021 2:30 PM EDT 5,000 Units levETIRAcetam (Keppra) (100 mg/mL) IV injection Given 07/21/2021 7:13 PM EDT 1 g 1 g 1 g, Intravenous, ONCE, 1 dose, On Helen 07/21/21 at 1645, Doses administered via IV push over 5 minutes. Administer Undiluted., Routine levETIRAcetam (Keppra) tablet 1,500 mg Given 08/12/2021 11:07 AM EDT 1,500 mg 1,500 mg, Oral, 2 TIMES DAILY, First dose on Helen 07/21/21 at 2100, Until Discontinued, Routine Given 08/11/2021 10:58 PM EDT 1,500 mg Given 08/11/2021 11:15 AM EDT 1,500 mg LORazepam (Ativan) (2 mg/mL) injection 0 .5 mg Given 07/21/2021 4:46 PM EDT 0.5 mg 0.5 mg, Intravenous, ONCE, 1 dose, On Helen 07/21/21 at 1641, Routine melatonin tablet 3 mg Given 08/10/2021 8:04 PM EDT 3 mg 3 mg, Oral, NIGHTLY, First dose (after last modification) on Sun08/03/21 at 2100, Until Discontinued, May give additional 3mg if patient still unable to sleep within 60 minutes., Routine Given 08/09/2021 8:13 PM EDT 3 mg Given 08/08/2021 8:13 PM EDT 3 mg memantine (Namenda) tablet 10 mg 10 mg, Oral, EVERY MORNING, 7 doses, Fir st dose on Sun08/13/21 at 0700, Last dose on Sun08/19/21 at 0700, Routine memantine (Namenda) tablet 10 mg 10 mg, Oral, 2 TIMES DAILY, First dose o n Sun08/20/21 at 0900, Until Discontinued, Routine memantine (Namenda) tablet 5 mg Given 08/05/2021 9:20 AM EDT 5 mg 5 mg, Oral, DAILY, 7 doses, First dose on Sun07/30/21 at 1630, Last dose on Sun08/05/21 at 0900, Routine Given 08/04/2021 9:00 AM EDT 5 mg Given 08/03/2021 8:49 AM EDT 5 mg memantine (Namenda) tablet 5 mg Given 08/12/2021 8:49 AM EDT 5 mg 5 mg, Oral, 2 TIMES DAILY, 14 doses, First dose on Sun08/06/21 at 0900, Last dose on Sun08/12/21 at 2100, Routine Given 08/11/2021 8:55 PM EDT 5 mg Given 08/11/2021 8:58 AM EDT 5 mg memantine (Namenda) tablet 5 mg 5 mg, Oral, EVERY EVENING, 7 doses, Firs t dose on Sun08/13/21 at 1700, Last dose on Sun08/19/21 at 1700, Routine metoprolol tartrate (Lopressor) tablet 12.5 Given 05/2021 11:07 AM EDT 12.5 mg mg 12.5 mg, Oral, 2 TIMES DAILY, First dose on Sun07/21/21 at 2100, Until Discontinued, Routine Given 08/11/2021 10:58 PM EDT 12.5 mg Given 08/11/2021 11:15 AM EDT 12.5 mg pantoprazole EC (Protonix) tablet 40 mg Given 08/12/2021 8:49 AM EDT 40 mg 40 mg, Oral, DAILY, First dose on Sun07/21/21 at 2015, Until Discontinued, DO NOT CRUSH OR OPEN, Routine Given 08/11/2021 8:58 AM EDT 40 mg Given 08/10/2021 8:16 AM EDT 40 mg sodium chloride 0.9 % (flush) (BD PosiFlush Given 08/12/2021 8:5 0 AM EDT 5 mLs Normal Saline 0.9) flush 5 mL 5 mL, Intravenous, 2 TIMES DAILY, First dose on Sun07/21/21 at 2100, Until Discontinued, Routine Given 08/11/2021 10:00 PM EDT 5 mLs Given 08/11/2021 9:00 AM EDT 5 mLs sodium chloride tablet 1 g Given 08/12/2021 11:07 AM EDT 1 g 1 g, Oral, 3 TIMES DAILY, First dose on Sun07/21/21 at 2100, Until Discontinued, Routine Given 08/11/2021 10:58 PM EDT 1 g Given 08/11/2021 5:49 PM EDT 1 g valproate (Depacon) 1,000 mg in New Bag 07/23/2021 3:04 PM EDT 1,000 mg 60 mL/hr sodium chloride 0.9% 60 mL infusion 1,000 mg, Intravenous, ONCE, 1 dose, On 07/23/21 at 1500, Administer over 60 Minutes zolpidem (Ambien) tablet 5 mg Given 08/03/2021 12:52 AM EDT 5 mg 5 mg, Oral, ONCE, 1 dose, On Sun08/03/21 at 0130, STAT documented in this encounter Active and Recently Administered Medications Times are shown in EDT. Scheduled Medication Order 08/10/2021 08/11/2021 08/12/2021 atorvastatin (Lipitor) tablet 80 mg 1810 (Given - Prov ider: Terri Camacho LPN - Comment: radiation) 1749 (Given - Provider: Terri Camacho LPN) 80 mg, Oral, EVERY EVENING, First dose o n Sun07/21/21 at 2015, Until Discontinued, Routine calcium carbonate (Tums) chewable tablet 500 mg 0900 ( Not Given - Provider: Terri Camacho LPN - Reason: Patient/family refused)2003 (Not Given - Provider: Ze Colbert RN - Reason: Patient/family refused) 09 (Not Given - Provider: Terri Camacho LPN - Reason: Patient/family refused)2054 (Not Given - Provider: Dejah Flores RN - Reason: Patient/family refused) 0849 (Not Given - Provider: Whitney Tellez LPN - Reason: Patient/family refused) 500 mg, Oral, 2 TIMES DAILY, First dose on Sun07/26/21 at 0915, Until Discontinued, Routine dexamethasone (Decadron) tablet 2 mg 225 8 (Given - Provider: Dejah Flores RN) 0514 (Given - Provider: Dejah chowdhury RN)1349 (Given - Provider: Elaine Solis RN) 2 mg, Oral, EVERY 8 HOURS SCHEDULED, Fir st dose (after last modification) on Sun08/11/21 at 2200, Until Discontinued, Routine dexamethasone (Decadron) tablet 4 mg (CANCELED) 0548 ( Given - Provider: Ji Altman RN)1124 (Given - Provider: Terri Camacho LPN)1811 (Given - Provider: Terri Camacho LPN)2331 (Given - Provider: Ze Colbert RN) 0512 (Given - Provider: Ze Colbert RN)1115 (Given - Provider: Terri Camacho LPN) 4 mg, Oral, EVERY 6 HOURS SCHEDULED, Fir st dose on Sun08/03/21 at 1800, Until Discontinued, Routine divalproex EC (Depakote) tablet 500 mg 0816 (Given - P rovider: Terri Camacho LPN)2003 (Given - Provider: Ze Colbert RN) 0858 (Given - Provider: Terri Camacho LPN)2054 (Given - Provider: Dejah Flores RN) 0850 (Given - Provider: Whitney Tellez LPN) 500 mg, Oral, 2 TIMES DAILY, First dose on Helen 07/21/21 at 2100, Until Discontinued, DO NOT SPLIT, CRUSH OR OPEN, Routine enoxaparin (Lovenox) (40 mg/0.4 mL) subcutaneous injec tion 40 mg 2004 (Given - Provider: Ze Colbert RN) 2054 (Given - Provider: Dejah chowdhury RN) 40 mg, Subcutaneous, NIGHTLY, First dose on 08/06/21 at 2100, Until Discontinued, Routine levETIRAcetam (Keppra) tablet 1,500 mg 1123 (Given - P rovider: Terri Camacho LPN)2331 (Given - Provider: Ze Colbert RN) 1115 (Given - Provider: Terri Camacho LPN)2258 (Given - Provider: Dejah Flores RN) 1107 (Given - Provider: Elaine Solis RN) 1,500 mg, Oral, 2 TIMES DAILY, First dos e on Helen 07/21/21 at 2100, Until Discontinued, Routine melatonin tablet 3 mg 2003 (Given - Provider: Ze blackmon RN) 2054 (Not Given - Provider: Dejah Flores RN - Reason: Patient/family refused) 3 mg, Oral, NIGHTLY, First dose (after l ast modification) on 08/03/21 at 2100, Until Discontinued, May give additional 3mg if patient still unable to sleep within 60 minutes., Routine memantine (Namenda) tablet 10 mg(Linked Group 1) 10 mg, Oral, EVERY MORNING, 7 doses, Fir st dose on 08/13/21 at 0700, Last dose on Sun08/19/21 at 0700, Routine memantine (Namenda) tablet 10 mg 10 mg, Oral, 2 TIMES DAILY, First dose o n 08/20/21 at 0900, Until Discontinued, Routine memantine (Namenda) tablet 5 mg 0816 (Given - Provider : Terri Camacho LPN)2003 (Given - Provider: Ze Colbert RN) 0858 (Given - Provider: Terri Camacho LPN)2054 (Given - Provider: Dejah Flores RN) 0849 (Given - Provider: Whitney Tellez LPN) 5 mg, Oral, 2 TIMES DAILY, 14 doses, Fir st dose on 08/06/21 at 0900, Last dose on Sun08/12/21 at 2100, Routine memantine (Namenda) tablet 5 mg(Linked Group 1) 5 mg, Oral, EVERY EVENING, 7 doses, Firs t dose on 08/13/21 at 1700, Last dose on Sun08/19/21 at 1700, Routine metoprolol tartrate (Lopressor) tablet 12.5 mg 1120 (G iven - Provider: Terri Camacho LPN)2332 (Given - Provider: Ze Colbert RN) 1115 (Given - Provider: Terri Camacho LPN)2258 (Given - Provider: Dejah Flores RN) 1107 (Given - Provider: Elaien delatorre RN) 12.5 mg, Oral, 2 TIMES DAILY, First dose on Helen 07/21/21 at 2100, Until Discontinued, Routine pantoprazole EC (Protonix) tablet 40 mg 0816 (Given - Provider: Terri Camacho LPN) 0858 (Given - Provider: Terri Camacho LPN) 0849 (G iven - Provider: Whitney Tellez LPN) 40 mg, Oral, DAILY, First dose on Helen 03/02 at 2015, Until Discontinued, DO NOT CRUSH OR OPEN, Routine sodium chloride 0.9 % (flush) (BD PosiFlush Normal Rik ine 0.9) flush 5 mL 0900 (Given - Provider: Flory Gross LPN)2004 (Given - Provider: Ze Colbert RN) 0900 (Given - Provider: Flory ponce LPN)2200 (Given - Provider: Dejah Flores RN) 0850 (Given - Provider: Whitney young LPN) 5 mL, Intravenous, 2 TIMES DAILY, First dose on Helen 07/21/21 at 2100, Until Discontinued, Routine sodium chloride tablet 1 g 1123 (Given - Provider: Choco Camacho LPN)1810 (Given - Provider: Terri Camacho LPN - Comment: radiation)2331 (Given - Provider: Ze Colbert RN) 1115 (Given - Provider: Terri Camacho LPN)1749 (Given - Provider: Terri Camacho LPN)2258 (Given - Provider: Dejah Flores RN) 1107 (Given - Provider: Elaine delatorre, SHELBIE) 1 g, Oral, 3 TIMES DAILY, First dose on Helen 07/21/21 at 2100, Until Discontinued, Routine PRN Medication Order 08/10/2021 08/11/2021 08/12/2021 acetaminophen (Tylenol) tablet 975 mg 0849 (Not Given - Provider: Whitney Tellez LPN - Reason: Patient/family refused) 975 mg, Oral, EVERY 8 HOURS PRN, Startin g on Helen 07/21/21 at 2012, Until Sun08/12/21 at 1827, Pain, Fever, Maximum dose of acetaminophen is 4000 mg from all sources in 24 hours. When ordered for pain, latoya taminophen should be given even when oth er ordered pain medications are indicated. , Routine bisacodyL (Dulcolax) suppository 10 mg 10 mg, Rectal, DAILY PRN, Starting on King n 07/24/21 at 0859, Until Sun08/12/21 at 1827, Constipation, Routine carboxymethylcellulose (Refresh Plus) 0.5 % ophthalmic drops 1 d rop 1 drop, Both Eyes, 3 TIMES DAILY PRN, St arting on Helen 07/28/21 at 1511, Until Sun08/12/21 at 1827, Dry Eyes, Routine lidocaine (Xylocaine) 1% (10 mg/mL) injection 3 mg 3 mg (0.3 mL), Subcutaneous, ONCE PRN, 1 dose, Starting on Helen 07/21/21 at 2013, Until Sun08/12/21 at 1827, for discomfort with PIV insertion, Routine LORazepam (Ativan) (2 mg/mL) injection 0.5 mg 0.5 mg, Intravenous, EVERY 4 HOURS PRN, Starting on Helen 07/21/21 at 2012, Until Sun08/12/21 at 1827, Seizures, Routine sodium chloride 0.9 % (flush) (BD PosiFlush Normal Saline 0.9) f lush 5-20 mL 5-20 mL, Intravenous, EVERY 1 MIN PRN, S tarting on Helen 07/21/21 at 2012, Until Sun08/12/21 at 1827, flush, Flush pertains to all indwelling lines. Flush per protocol found in the job aid using the link provided on this medication record., Routine Linked Groups Order Group 1: memantine (Namenda) tablet 10 mgJump to med 10 mg, Oral, EVERY MORNING, 7 doses, Fir st dose on 08/13/21 at 0700, Last dose on Sun08/19/21 at 0700, Routine And memantine (Namenda) tablet 5 mgJump to med 5 mg, Oral, EVERY EVENING, 7 doses, Firs t dose on 08/13/21 at 1700, Last dose on Sun08/19/21 at 1700, Routine documented in this encounter Care Teams Director Trade Relationship Specialty Start Date End Date Myriam Riggins MD PCP - General Family Medicine 06/28/[address] [place] [address] documented as of this encounter
--- OUTSIDE RECORDS SUMMARY | 2021-09-07 15:35 | XMS_ITS | Encounter Summary ---
:1945 Author Organization [facility] [place] [place] [address] Care Team Providers Name Role Phone Myriam Riggins MD Primary Care Provider Encounter Details Date Type Department Care Team Description 08/16/2021 TH Visit Neurosurgery at [facility] Darian Justice, Brain metastases (TeleHealth) [place] [address] [facility] [place] [id number] Social History Tobacco Use Types Packs/Day Years [...] on file documented as of this encounter Progress Notes Darian Justice MD - 08/16/2021 10:45 AM EDT I just spoke with Ilir on the phone. He is currently an inpatient at [facility]. 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 He has subsequently undergone radiation treatment. He states that his right side is still weak but he feels as though it isimproving. His kedar have been removed and he states that the incision has healed well. He will continue to receive adjuvant treatment. If there are any neurosurgical issues he knows to reach out to us. Otherwise will defer additional treatment to his oncology and palliative care teams. 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
--- OUTSIDE RECORDS SUMMARY | 2021-09-07 15:35 | XMS_ITS | Clinical Summary ---
:1945 Author Organization [facility] [place] [address] Care Team Providers Name Role Phone Myriam Riggins MD Primary Care Provider Allergies Active Allergy Reactions Severity Noted Date Comments Cis Free Text Allergy Enviro nmental. CIS - Allergic Rhinitis Medications Medication Sig Dispensed Refills Start Date End Date Status atorvastatin (Lipitor) Take 80 mg by 0 05/20/2021 Active 80 mg Tablet mouth every evening. acetaminophen (Tylenol) Take 3 tablets 30 tablet 1 07/08/2021 Active 325 mg Tablet by mouth every 8 hours as needed for Pain or Fever. metoprolol tartrate Take 0.5 tablets 180 tablet 3 07/08/2021 Active (Lopressor) 25 mg by mouth 2 times Tablet daily. pantoprazole EC Take 1 tablet by 90 tablet 3 07/09/2021 Active (Protonix) 40 mg mouth daily. Tablet, Delayed Release (E.C.) sodium chloride 1 gram Take 1 tablet by 0 07/08/2021 Active Tablet mouth 3 times daily. multivitamin Take 1 tablet by 0 Active (THERAGRAN) Tablet mouth daily. memantine (Namenda) 10 Take 1 tablet by 60 tablet 12 08/12/2021 Active mg Tablet mouth See Admin Instructions. Take 10mg every morning and 5mg every evening until 08/20 at which time change to 10mg BID calcium carbonate Take 1 tablet by 0 08/12/2021 Active (Tums) 200 mg calcium mouth 2 times (500 mg) Tablet, daily. Chewable divalproex EC Take 1 tablet by 90 tablet 3 08/12/2021 Active (Depakote) 500 mg mouth 2 times Tablet, Delayed Release daily. (E.C.) levETIRAcetam (KEPPRA) Take 1.5 tablets 0 08/12/2021 Active 1,000 mg Tablet by mouth 2 times daily. dexamethasone Take 1 tablet by 0 08/12/2021 Active (DECADRON) 2 mg Tablet mouth every 8 hours. melatonin 3 mg Tablet Take 1 tablet by 0 08/12/2021 Active mouth nightly. Active Problems Problem Noted Date Right sided weakness 07/21/2021 Right hemiplegia 07/21/2021 Hyponatremia 07/03/2021 Last Assessment & Plan: Formatting of th is note might be different from the original. Post operative hyponatremia. Urine studi es c/w SIADH. Remains asymptomatic. PLAN -Target eunatremia post craniotomy per N SGY -Fluid restrict 1500 mL -Continue NaCl tabs 1g TID, taper over 1 -2 weeks -Trend BMP Hyperglycemia 07/01/2021 Last Assessment & Plan: Formatting of th is note might be different from the original. In setting of dexamethasone administrati on. RESOLVED Non-small cell carcinoma of lung 06/29/2021 Last Assessment & Plan: Formatting of th is note might be different from the original. He has evidence of a right hilar mass on CT scan that could be suggestive of primary lung malignancy. Evidence of metastasis to the brain; biopsy obtained during craniotomy. Preliminary path results show NSCLC. PLAN -Smoking cessation -Onc, Rad Onc, Pall Care have all been c onsulted, appreciate recommendations -Plan for outpatient follow up for ongoi ng management Cigarette nicotine dependence with withdrawal 06/30/19 Last Assessment & Plan: Formatting of th is note might be different from the original. Patient has chronic nicotine dependence, quit smoking several days prior to admission. PLAN -Recommend cessation and abstinence -Nicotine patch CAD (coronary artery disease), HLD 06/29/2021 Last Assessment & Plan: Formatting of th is note might be different from the original. CAD s/p CABG in 2019. No acute issues. PLAN -Hold ASA per neurosurgery; okay to resu me 2 weeks post op (07/14) -Continue Atorvastatin and BB Brain metastasis, Vasogenic Edema, Seizure secondary t o vasogenic edema 06/28/2021 and brain mass, neurological deficits Last Assessment & Plan: Formatting of th is note might be different from the original. Patient presenting with right lower extr emity weakness, inability to ambulate without assistance, and more recent development of right upper extremity weakness. MRI showing multiple bilateral intracrani al lesions; largest lesion is in the lef t frontal lobe with surrounding vasogenic edema. Imaging is most consistent with metastasis and patient has concurrent hilar mass which is the likely primary harjeet gnancy. Neurosurgery has been consulted and performed debulking procedure/craniotomy on 06/30, prelim biopsy on frozen section was NSCLC. Have consulted oncology, radiation oncol ogy, and palliative care who have all evaluated patient and plan for outpatient follow up once definitive diagnosis is established to discuss treatment options. H e will also need outpatient neurology fo llow up for seizure. Continues to have gradual improvement in R sided weakness. PT/OT recommended acute rehab on discharge. PLAN -Appreciate Neurosurgery/Onc/Rad Onc/Pal liative Care consults -Maintain SBP < 160 -SQH ok per neurosurgery -Resume home ASA 2 weeks post op (07/14) -Decadron taper per Neurosurgery recomme ndations, starting 07/02: 4mg BIDx3d, 2mg BIDx3d, 1mg BIDx3d, 1mg QDx3d, stop -GI ppx while on steroids -Continue keppra 1000 mg BID -Q shift neuro checks -Target eunatremia post craniotomy -PT/OT, recommend acute rehab -F/u with Neurosurgery on 08/02/21 -Will also have f/u with Onc, Rad Onc, P alliative Care, and Neurology Encounters Date Type Specialty Care Team Description 08/19/2021 Patient Outreach Neurology Wally Chow (Pr fito/) MD Sultana 08/16/2021 TH Visit Neurosurgery Darian Justice metast ases (TeleHealth) MD Zeyad 08/10/2021 Office Visit Radiation Oncology Humza Laura MD 08/03/2021 Office Visit Radiation Oncology Humza Laura MD 07/28/2021 Telephone Neurosurgery Glenis Campuzano MD 07/27/2021 Office Visit Radiation Oncology Humza Laura MD 07/26/2021 Orders Only Hematology and Jessie Rubio Non-small cell lung Oncology C, STUDY SPECIALIST cancer metastat ic to brain 07/22/2021 Ancillary Radiation Oncology Humza Laura MD 07/22/2021 Telephone Hospitalist Presley Guerin MD 07/22/2021 Orders Only Radiation Oncology Keya Humza Brain m aziza Cervantes MD 07/21/2021 Hospital Encounter Radiology Ela Wright, Cancel ed (P-PATIENT MD ADMITTED/DELSARAHI RED) 07/21/2021 - Hospital Encounter Héctor Cuellar MD Right sided weakness (Primary Dx); 08/12/2021 Flory Polo Secondary ma lignant neoplasm of brain MD Sri Pop, MD Apoorva Pascual, MD Francis Mathew David M, MD Ward, Marshall J, MD 07/21/2021 Transcribe Orders Primary Care Naomi Carmona Brain raysa Gastelum 07/18/2021 Telephone Radiation Oncology Debo Jennings 07/18/2021 Telephone Neurosurgery Jessie Dominguez 07/14/2021 Telephone Neurology Patsy, Rylee Mustafa MD 07/13/2021 Ancillary Radiology Darian Justice MD 07/13/2021 Telephone Neurosurgery Nasrin Garcia MD 07/13/2021 Telephone Neurosurgery Nasrin Garcia MD 07/13/2021 Telephone Neurology David Atkinson MD 07/13/2021 Telephone [facility] (Molecular [facility] er testing CPT 814 [id number] is a covered benef it. ) 07/12/2021 TH Visit Radiation Oncology Ela Wright Brain metastases (TeleHealth) 06/30/2021 Surgery Surgery Darian Justice @CRANI, FOR TUMOR, MD Zeyad SUPRATENTORIAL, NOT MENINGIOMA (WRV U 30.83) 06/30/2021 Anesthesia Event Surgery Farrah Trammell MD Cramer, David A, CRNA 06/29/2021 Telephone Pulmonology Ester Clayton (Lung b iopsy) Kevin RN 06/29/2021 Telephone Pulmonology Shayy Hernandez 06/28/2021 - Hospital Encounter Dion Dunn (Primary Dx); 07/08/2021 Bam Jeffers MD Metastatic cancer to brain; Juan Gaytan, DO Seizure Mary Lemus MD Lascala, Leah R, MD 06/28/2021 Ancillary Radiology Procedure 06/24/2021 Ancillary Radiology Procedure from Last 3 Months Family History Medical History Relation Comments Cerebrovascular Accident Father Heart Disease Mother Relation Status Comments Father Mother Social History Tobacco Use Types Packs/Day Years Used Date Former Smoker 1 30 Smokeless Tobacco: Former User Q uit: 06/24/2021 Tobacco Cessation: Counseling Given: Yes Comments: Quit 5 days ago Alcohol Use [...] Assigned at Date Recorded Not on file Last Filed Vital Signs Vital Sign Reading [...] Mass Index 25.64 07/21/2021 10:39 AM EDT Plan of Treatment Upcoming Encounters Date Type Specialty Care Team Description 09/13/2021 Hospital Encounter Radiology Curtis Laura MD [facility] [place] [address] (Wo rk) 10/07/2021 Office Visit Neurology Wally Chow MD [facility] [address] [place], [place] [address] (Wo rk) Health Maintenance Due Date Last Done Comments Covid-19 Vaccine (#1) 11/09/1950 Hepatitis C Screening 1963 Tdap adult 1965 Tetanus vaccine 1965 Colonoscopy 11/09/1991 Zoster vaccine (1 of 2) 1996 AAA Screen 11/09/2011 Pneumoccocal Vaccine: 65+ (1 - PCV) 11/09/2011 Influenza (Flu) vaccine (1 of 1 - Influenza standard 11/10/2020 series) Medical Devices Implanted Type Area Cray Fishing Hand Device Shelf Model / Identifier Expiration Serial / Date Lot Plate Cmf 1.5x16mm 2 Hole Low Profile Ti [place] [employer] ([id number]) - [id number] Cranial MARU [id number] / Implanted: Qty: 2 on 06/30/2021 by Emmy Boyer MD at [facility] [place] Used Gym Equipment - / MARU Procedures Procedure Name Priority Date/Time Associated Comments Diagnosis RAPID COVID-19 PCR Routine 08/10/2021 12:12 Resul ts for this ([facility]/APD/[facility]) PM EDT procedure are in the results section. SCAN, PERIPHERAL BLOOD Routine 08/08/2021 5:14 AM Results for this EDT procedure are i n the results section. DIFFERENTIAL, AUTOMATED Routine 08/08/2021 5:14 AM Results for this EDT procedure are i n the results section. HEMOGRAM Routine 08/08/2021 5:14 AM Results f or this EDT procedure are i n the results section. BMP W/FASTING GLUCOSE Routine 08/08/2021 5:14 AM Results for this EDT procedure are i n the results section. HC VENIPUNCTURE Routine 08/08/2021 5:14 AM EDT SCAN, PERIPHERAL BLOOD Routine 08/07/2021 2:00 AM Results for this EDT procedure are i n the results section. DIFFERENTIAL, AUTOMATED Routine 08/07/2021 2:00 AM Results for this EDT procedure are i n the results section. HEMOGRAM Routine 08/07/2021 2:00 AM Results f or this EDT procedure are i n the results section. BMP W/FASTING GLUCOSE Routine 08/07/2021 2:00 AM Results for this EDT procedure are i n the results section. HC CBC,PLT & AUTO DIFF Routine 08/07/2021 2:00 AM EDT DIFFERENTIAL, AUTOMATED Routine 08/06/2021 3:29 AM Results for this EDT procedure are i n the results section. HEMOGRAM Routine 08/06/2021 3:29 AM Results f or this EDT procedure are i n the results section. BASIC METABOLIC PANEL Routine 08/06/2021 3:29 AM Results for this (NON-FASTING) EDT procedure are in the results section. HC CBC,PLT & AUTO DIFF Routine 08/06/2021 3:29 AM EDT HC HIT SCREEN PF4 Routine 08/05/2021 12:08 Result s for this ANTIBODY PM EDT procedure are i n the results section. SCAN, PERIPHERAL BLOOD Routine 08/05/2021 4:12 AM Results for this EDT procedure are i n the results section. DIFFERENTIAL, AUTOMATED Routine 08/05/2021 4:12 AM Results for this [...] are i n the results section. DIFFERENTIAL, AUTOMATED Routine 08/01/2021 3:12 AM Results for this EDT procedure are i n the results section. HEMOGRAM Routine 08/01/2021 3:12 AM Results f or this EDT procedure are i n the results section. BASIC METABOLIC PANEL Routine 08/01/2021 3:12 AM Results for this (NON-FASTING) EDT procedure are in the results section. HC CBC,PLT & AUTO DIFF Routine 08/01/2021 3:12 AM EDT HC VENIPUNCTURE Routine 07/31/2021 5:41 AM Result [...] are i n the results section. DIFFERENTIAL, AUTOMATED Routine 07/30/2021 8:47 AM Results for this EDT procedure are i n the results section. HEMOGRAM Routine 07/30/2021 8:47 AM Results f or this EDT procedure are i n the results section. BASIC METABOLIC PANEL Routine 07/30/2021 8:47 AM Results for this (NON-FASTING) EDT procedure are in the results section. HC VENIPUNCTURE Routine 07/30/2021 8:47 AM EDT SCAN, PERIPHERAL BLOOD Routine 07/29/2021 7:24 AM Results for this EDT procedure are i n the results section. DIFFERENTIAL, AUTOMATED Routine 07/29/2021 7:24 AM Results for this EDT procedure are i n the results section. HEMOGRAM Routine 07/29/2021 7:24 AM Results f or this EDT procedure are i n the results section. BASIC METABOLIC PANEL Routine 07/29/2021 7:24 AM Results for this (NON-FASTING) EDT procedure are in the results section. HC CBC,PLT & AUTO DIFF Routine 07/29/2021 7:24 AM EDT HEPATIC FUNCTION PANEL Routine 07/29/2021 7:24 AM Results for this EDT procedure are i n the results section. HC VENIPUNCTURE Routine 07/29/2021 7:24 AM Result s for this EDT procedure are i n the results section. SCAN, PERIPHERAL BLOOD Routine 07/27/2021 5:04 AM Results for this EDT procedure are i n the results section. DIFFERENTIAL, AUTOMATED Routine 07/27/2021 5:04 AM Results for this EDT procedure are i n the results section. HEMOGRAM Routine 07/27/2021 5:04 AM Results f or this EDT procedure are i n the results section. HC CBC,PLT & AUTO DIFF Routine 07/27/2021 5:04 AM EDT HC VENIPUNCTURE Routine 07/27/2021 5:02 AM Result s for this EDT procedure are i n the results section. DIFFERENTIAL, AUTOMATED Routine 07/26/2021 4:28 AM Results for this EDT procedure are i n the results section. HEMOGRAM Routine 07/26/2021 4:28 AM Results f or this EDT procedure are i n the results section. HC PHOSPHORUS, SERUM Routine 07/26/2021 4:28 AM R esults for this EDT procedure are i n the results section. HC MAGNESIUM, SERUM Routine 07/26/2021 4:28 AM Re sults for this EDT procedure are i n the results section. HC CBC,PLT & AUTO DIFF Routine 07/26/2021 4:28 AM EDT HC VENIPUNCTURE Routine 07/26/2021 4:28 AM Result s for this EDT procedure are i n the results section. DIFFERENTIAL, AUTOMATED Routine 07/25/2021 11:44 Results for this AM EDT procedure are i n the results section. HEMOGRAM Routine 07/25/2021 11:44 Results for this AM EDT procedure are i n the results section. COMPREHENSIVE METABOLIC Routine 07/25/2021 11:44 Results for this PANEL (NON-FASTING) AM EDT procedur e are in the results section. HC CBC,PLT & AUTO DIFF Routine 07/25/2021 11:44 AM EDT COVID-19 PCR Routine 07/24/2021 8:54 AM Results f or this EDT procedure are i n the results section. HC VENIPUNCTURE Routine 07/24/2021 6:47 AM Result s for this EDT procedure are i n the results section. DIFFERENTIAL, AUTOMATED Routine 07/24/2021 4:23 AM Results for this EDT procedure are i n the results section. HEMOGRAM Routine 07/24/2021 4:23 AM Results f or this EDT procedure are i n the results section. BASIC METABOLIC PANEL Routine 07/24/2021 4:23 AM Results for this (NON-FASTING) EDT procedure are in the results section. HC VENIPUNCTURE Routine 07/24/2021 4:23 AM EDT HC VALPROIC ACID Routine 07/23/2021 8:24 AM Resul ts for this EDT procedure are i n the results section. DIFFERENTIAL, AUTOMATED Routine 07/23/2021 4:57 AM Results for this EDT procedure are i n the results section. HEMOGRAM Routine 07/23/2021 4:57 AM Results f or this EDT procedure are i n the results section. HEPATIC FUNCTION PANEL Routine 07/23/2021 4:57 AM Results for this EDT procedure are i n the results section. BASIC METABOLIC PANEL Routine 07/23/2021 4:57 AM Results for this (NON-FASTING) EDT procedure are in the results section. HC CBC,PLT & AUTO DIFF Routine 07/23/2021 4:[address] RAD ONC NEURO INTERP Routine 07/22/2021 3:34 PM Secondary Results for this ONLY EDT malignant neoplasm procedure are in of brain the results section. DIFFERENTIAL, AUTOMATED Routine 07/22/2021 4:59 AM Results for this EDT procedure are i n the results section. HEMOGRAM Routine 07/22/2021 4:59 AM Results f or this EDT procedure are i n the results section. HC AMMONIA, PLASMA Routine 07/22/2021 4:59 AM Res ults for this EDT procedure are i n the results section. HEPATIC FUNCTION PANEL Routine 07/22/2021 4:59 AM Results for this EDT procedure are i n the results section. BASIC METABOLIC PANEL Routine 07/22/2021 4:59 AM Results for this (NON-FASTING) EDT procedure are in the results section. HC CBC,PLT & AUTO DIFF Routine 07/22/2021 4:59 AM EDT RAPID COVID-19 PCR STAT 07/21/2021 5:00 PM Res ults for this ([facility]/APD/[facility]) EDT procedure are in the results section. [...] are i n the results section. DIFFERENTIAL, AUTOMATED STAT 07/21/2021 10:50 Results for this AM EDT procedure are i n the results section. HEMOGRAM STAT 07/21/2021 10:50 Results for this AM EDT procedure are i n the results section. BASIC METABOLIC PANEL STAT 07/21/2021 10:50 Re sults for this (NON-FASTING) AM EDT procedure are in the results section. HC CBC,PLT & AUTO DIFF STAT 07/21/2021 10:50 AM EDT POCT GLUCOSE Routine 07/21/2021 10:38 Results for this AM EDT procedure are i n the results section. FILM LIBRARY STORAGE Routine 07/13/2021 5:19 PM R esults for this ONLY CT HEAD EDT procedure are i n the results section. CT SCAN (SCAN) 07/13/2021 12:00 Results f or this AM EDT procedure are i n the results section. SCAN, PERIPHERAL BLOOD Routine 07/08/2021 5:07 AM Results for this EDT procedure are i n the results section. DIFFERENTIAL, AUTOMATED Routine 07/08/2021 5:07 AM Results for this EDT procedure are i n the results section. HEMOGRAM Routine 07/08/2021 5:07 AM Results f or this EDT procedure are i n the results section. HC CBC,PLT & AUTO DIFF Routine 07/08/2021 5:07 AM EDT HC PHOSPHORUS, SERUM Routine 07/08/2021 5:07 AM R esults for this EDT procedure are i n the results section. HC MAGNESIUM, SERUM Routine 07/08/2021 5:07 AM Re sults for this EDT procedure are i n the results section. HC VENIPUNCTURE Routine 07/08/2021 5:07 AM Result s for this EDT procedure are i n the results section. HC VENIPUNCTURE Routine 07/07/2021 6:20 PM Result s for this EDT procedure are i n the results section. HC OSMOLALITY URINE Routine 07/07/2021 2:05 PM Re sults for this EDT procedure are i n the results section. HC SODIUM, URINE Routine 07/07/2021 2:05 PM Resul ts for this EDT procedure are i n the results section. DIFFERENTIAL, AUTOMATED Routine 07/07/2021 6:14 AM Results for this EDT procedure are i n the results section. HEMOGRAM Routine 07/07/2021 6:14 AM Results f or this EDT procedure are i n the results section. HC CBC,PLT & AUTO DIFF Routine 07/07/2021 6:14 AM EDT HC PHOSPHORUS, SERUM Routine 07/07/2021 6:14 AM R esults for this EDT procedure are i n the results section. HC MAGNESIUM, SERUM Routine 07/07/2021 6:14 AM Re sults for this EDT procedure are i n the results section. HC VENIPUNCTURE Routine 07/07/2021 6:14 AM Result s for this EDT procedure are i n the results section. HC VENIPUNCTURE Routine 07/06/2021 6:27 PM Result s for this EDT procedure are i n the results section. DIFFERENTIAL, AUTOMATED Routine 07/06/2021 6:23 AM Results for this EDT procedure are i n the results section. HEMOGRAM Routine 07/06/2021 6:23 AM Results f or this EDT procedure are i n the results section. HC CBC,PLT & AUTO DIFF Routine 07/06/2021 6:23 AM EDT HC PHOSPHORUS, SERUM Routine 07/06/2021 6:23 AM R esults for this EDT procedure are i n the results section. HC MAGNESIUM, SERUM Routine 07/06/2021 6:23 AM Re sults for this EDT procedure are i n the results section. HC VENIPUNCTURE Routine 07/06/2021 6:23 AM Result s for this EDT procedure are i n the results section. HC VENIPUNCTURE Routine 07/05/2021 6:41 PM Result s for this EDT procedure are i n the results section. RAPID COVID-19 PCR Routine 07/05/2021 1:22 PM Res ults for this ([facility]/APD/[facility]) EDT procedure are in the results section. POCT GLUCOSE Routine 07/05/2021 7:27 AM Results f or this EDT procedure are i n the results section. DIFFERENTIAL, AUTOMATED Routine 07/05/2021 6:00 AM Results for this EDT procedure are i n the results section. HEMOGRAM Routine 07/05/2021 6:00 AM Results f or this EDT procedure are i n the results section. HC CBC,PLT & AUTO DIFF Routine 07/05/2021 6:00 AM EDT HC PHOSPHORUS, SERUM Routine 07/05/2021 6:00 AM R esults for this EDT procedure are i n the results section. HC MAGNESIUM, SERUM Routine 07/05/2021 6:00 AM Re sults for this EDT procedure are i n the results section. HC VENIPUNCTURE Routine 07/05/2021 6:00 AM Result s for this EDT procedure are i n the results section. POCT GLUCOSE Routine 07/05/2021 3:56 AM Results f or this EDT procedure are i n the results section. POCT GLUCOSE Routine 07/04/2021 11:44 Results for this PM EDT procedure are i n the results section. POCT GLUCOSE Routine 07/04/2021 7:31 PM Results f or this EDT procedure are i n the results section. POCT GLUCOSE Routine 07/04/2021 4:44 PM Results f or this EDT procedure are i n the results section. HC VENIPUNCTURE Routine 07/04/2021 12:58 Results for this PM EDT procedure are i n the results section. POCT GLUCOSE Routine 07/04/2021 11:47 Results for this AM EDT procedure are i n the results section. POCT GLUCOSE Routine 07/04/2021 7:39 AM Results f or this EDT procedure are i n the results section. DIFFERENTIAL, AUTOMATED Routine 07/04/2021 6:28 AM Results for this EDT procedure are i n the results section. HEMOGRAM Routine 07/04/2021 6:28 AM Results f or this EDT procedure are i n the results section. HC CBC,PLT & AUTO DIFF Routine 07/04/2021 6:28 AM EDT HC PHOSPHORUS, SERUM Routine 07/04/2021 6:28 AM R esults for this EDT procedure are i n the results section. HC MAGNESIUM, SERUM Routine 07/04/2021 6:28 AM Re sults for this EDT procedure are i n the results section. HC VENIPUNCTURE Routine 07/04/2021 6:28 AM Result s for this EDT procedure are i n the results section. POCT GLUCOSE Routine 07/04/2021 4:19 AM Results f or this EDT procedure are i n the results section. POCT GLUCOSE Routine 07/03/2021 11:52 Results for this PM EDT procedure are i n the results section. POCT GLUCOSE Routine 07/03/2021 8:33 PM Results f or this EDT procedure are i n the results section. HC OSMOLALITY URINE Routine 07/03/2021 4:17 PM Re sults for this EDT procedure are i n the results section. HC SODIUM, URINE Routine 07/03/2021 4:17 PM Resul ts for this EDT procedure are i n the results section. POCT GLUCOSE Routine 07/03/2021 3:23 PM Results f or this EDT procedure are i n the results section. SCAN DOC: TELEMETRY 07/03/2021 1:04 PM STRIPS EDT HC VENIPUNCTURE Routine 07/03/2021 11:58 Results for this AM EDT procedure are i n the results section. POCT GLUCOSE Routine 07/03/2021 7:35 AM Results f or this EDT procedure are i n the results section. POCT GLUCOSE Routine 07/03/2021 4:12 AM Results f or this EDT procedure are i n the results section. DIFFERENTIAL, AUTOMATED Routine 07/03/2021 12:42 Results for this AM EDT procedure are i n the results section. HEMOGRAM Routine 07/03/2021 12:42 Results for this AM EDT procedure are i n the results section. HC CBC,PLT & AUTO DIFF Routine 07/03/2021 12:42 AM EDT HC MAGNESIUM, SERUM Routine 07/03/2021 12:42 Resu lts for this AM EDT procedure are i n the results section. BASIC METABOLIC PANEL Routine 07/03/2021 12:42 Re sults for this (NON-FASTING) AM EDT procedure are in the results section. HC VENIPUNCTURE Routine 07/03/2021 12:42 Results for this AM EDT procedure are i n the results section. POCT GLUCOSE Routine 07/03/2021 12:02 Results for this AM EDT procedure are i n the results section. POCT GLUCOSE Routine 07/02/2021 7:26 PM Results f or this EDT procedure are i n the results section. SCAN DOC: TELEMETRY 07/02/2021 6:08 PM STRIPS EDT POCT GLUCOSE Routine 07/02/2021 4:34 PM Results f or this EDT procedure are i n the results section. SCAN DOC: TELEMETRY 07/02/2021 2:41 PM STRIPS EDT HC VENIPUNCTURE Routine 07/02/2021 11:52 Results for this AM EDT procedure are i n the results section. POCT GLUCOSE Routine 07/02/2021 11:43 Results for this AM EDT procedure are i n the results section. POCT GLUCOSE Routine 07/02/2021 7:34 AM Results f or this EDT procedure are i n the results section. POCT GLUCOSE Routine 07/02/2021 3:53 AM Results f or this EDT procedure are i n the results section. DIFFERENTIAL, AUTOMATED Routine 07/02/2021 2:10 AM Results for this EDT procedure are i n the results section. HEMOGRAM Routine 07/02/2021 2:10 AM Results f or this EDT procedure are i n the results section. HC HEMOGLOBIN A1C Routine 07/02/2021 2:10 AM Resu lts for this EDT procedure are i n the results section. HC CBC,PLT & AUTO DIFF Routine 07/02/2021 2:10 AM EDT HC VENIPUNCTURE Routine 07/02/2021 2:10 AM Result s for this EDT procedure are i n the results section. HC MAGNESIUM, SERUM Routine 07/02/2021 2:10 AM Re sults for this EDT procedure are i n the results section. HC PHOSPHORUS, SERUM Routine 07/02/2021 2:10 AM R esults for this EDT procedure are i n the results section. POCT GLUCOSE Routine 07/02/2021 12:05 Results for this AM EDT procedure are i n the results section. POCT GLUCOSE Routine 07/01/2021 8:06 PM Results f or this EDT procedure are i n the results section. POCT GLUCOSE Routine 07/01/2021 4:28 PM Results f or this EDT procedure are i n the results section. POCT GLUCOSE Routine 07/01/2021 12:02 Results for this PM EDT procedure are i n the results section. POCT GLUCOSE Routine 07/01/2021 7:48 AM Results f or this EDT procedure are i n the results section. SCAN DOC: TELEMETRY 07/01/2021 7:30 AM STRIPS EDT POCT GLUCOSE Routine 07/01/2021 4:30 AM Results f or this EDT procedure are i n the results section. DIFFERENTIAL, AUTOMATED Routine 07/01/2021 12:30 Results for this AM EDT procedure are i n the results section. HEMOGRAM Routine 07/01/2021 12:30 Results for this AM EDT procedure are i n the results section. HC PHOSPHORUS, SERUM Routine 07/01/2021 12:30 Res ults for this AM EDT procedure are i n the results section. HC MAGNESIUM, SERUM Routine 07/01/2021 12:30 Resu lts for this AM EDT procedure are i n the results section. HC CBC,PLT & AUTO DIFF Routine 07/01/2021 12:30 AM EDT BASIC METABOLIC PANEL Routine 07/01/2021 12:30 Re sults for this (NON-FASTING) AM EDT procedure are in the results section. MRI BRAIN WWO CONTRAST Routine 06/30/2021 10:41 R esults for this (GENERIC) PM EDT procedure are i n the results section. POCT GLUCOSE Routine 06/30/2021 8:51 PM Results f or this EDT procedure are i n the results section. POCT GLUCOSE Routine 06/30/2021 2:25 PM Results f or this EDT procedure are i n the results section. SOLID TUMOR NGS PANEL Routine 06/30/2021 12:51 PM EDT SURGICAL PATHOLOGY Routine 06/30/2021 12:51 Resul ts for this REPORT PM EDT procedure are i n the results section. SPECIMEN TO PATHOLOGY Routine 06/30/2021 12:51 Re sults for this PM EDT procedure are i n the results section. SPECIMEN TO PATHOLOGY Routine 06/30/2021 12:51 Re sults for this PM EDT procedure are i n the results section. MODIFIER,STEALTH 3 W/O Yes 06/30/2021 11:50 brain mets KINEVO,CRANI/SPINE ONLY AM EDT MICROSCOPE USE (WRVU Yes 06/30/2021 11:50 brain mets 3.46) AM EDT STEREOTACTIC Yes 06/30/2021 11:50 brain mets COMPUTER-ASSTD AM EDT NAVIGATIONAL CRANIAL INTRADURAL (WRVU 3.75) @CRANI, FOR TUMOR, Yes 06/30/2021 11:50 brain mets SUPRATENTORIAL, NOT AM EDT MENINGIOMA (WRVU 30.83) STEREOTACTIC Routine 06/30/2021 9:30 AM COMPUTER-ASSTD EDT NAVIGATIONAL CRANIAL INTRADURAL MICROSCOPE USE Routine 06/30/2021 9:30 AM EDT CRANI, FOR TUMOR, Routine 06/30/2021 9:30 AM SUPRATENTORIAL, NOT EDT MENINGIOMA DIFFERENTIAL, AUTOMATED Routine 06/30/2021 1:12 AM Results for this EDT procedure are i n the results section. HEMOGRAM Routine 06/30/2021 1:12 AM Results f or this EDT procedure are i n the results section. HC MAGNESIUM, SERUM Routine 06/30/2021 1:12 AM Re sults for this EDT procedure are i n the results section. HC CBC,PLT & AUTO DIFF Routine 06/30/2021 1:12 AM EDT HC VENIPUNCTURE Routine 06/30/2021 1:12 AM Result s for this EDT procedure are i n the results section. SCAN DOC: TELEMETRY 06/29/2021 7:37 PM STRIPS EDT ZEEG AWAKE, ASLEEP, Routine 06/29/2021 2:20 AM Re sults for this DROWSY EDT procedure are i n the results section. CT CHEST ABDOMEN PELVIS STAT 06/28/2021 11:22 Results for this W CONTRAST (GENERIC) PM EDT procedu re are in the results section. HC PROTHROMBIN TIME STAT 06/28/2021 9:38 PM Re sults for this EDT procedure are i n the results section. HC PARTIAL STAT 06/28/2021 9:38 PM Results f or this THROMBOPLASTIN TIME EDT procedur e are in the results section. RAPID COVID-19 PCR STAT 06/28/2021 9:03 PM Res ults for this ([facility]) EDT procedure are in the results section. XR CHEST PA AND LATERAL STAT 06/28/2021 8:51 PM Results for this EDT procedure are i n the results section. CT HEAD WO CONTRAST STAT 06/28/2021 7:48 PM Re sults for this (GENERIC) EDT procedure are i n the results section. DIFFERENTIAL, AUTOMATED STAT 06/28/2021 7:22 PM Results for this EDT procedure are i n the results section. HEMOGRAM STAT 06/28/2021 7:22 PM Results f or this EDT procedure are i n the results section. BASIC METABOLIC PANEL STAT 06/28/2021 7:22 PM Results for this (NON-FASTING) EDT procedure are in the results section. HC CBC,PLT & AUTO DIFF STAT 06/28/2021 7:22 PM EDT FILM LIBRARY STORAGE STAT 06/28/2021 6:09 PM R esults for this ONLY MR HEAD AND SPINE EDT proce dure are in the results section. FILM LIBRARY STORAGE STAT 06/24/2021 12:00 Res ults for this ONLY MR SPINE AM EDT procedure are in the results section. from Last 3 Months Results COVID-19 PCR (08/10/2021 12:12 PM EDT)Only the most recent of4 resultswithin the time period is included. [facility] Method Time Signature SARS-CoV-2 Not Detected Not Detected GABBY RNA PCR [facility] Comment: This result should be interpreted in com bination with the clinical observations, patient history and epidem iological information. For testing of asymptomatic individuals, assay performa nce characteristics and clinical utility have not been evaluated. Testing for SARS-CoV-2 (Severe acute respiratory syndrome coronavirus 2, form erly known as 2018 novel coronavirus or 2019-nCoV) to aid in the diagnosis of CO VID-19 is performed using the Simplexa COVID-19 Direct Assay by [employer].cnlary franks as authorized by the FDA issued [...] Department of Pathology and Laboratory Medicine at [facility], certified under the Clinical Laboratory Improvement Amendmen [...] fact sheets at the following FDA website: https://www.fda.gov/medical-devices/mcoifcceica-cjcpcdi-4076-ckopa-04-saefvfnhf- muc-azdgfbrytkfvom-nkotghw-devices/kcwxb-zjximdbhceu-sirg SARS-CoV-2 Source MILITARY SCIENCE TEACHER Swab [facility] Specimen (Source) Anatomical Collection Method Collection Time Re ceived Time Location / / Volume Laterality Nasopharyngeal Swab 08/10/2021 12:12 06/0 03/2021 PM EDT 1:29 PM EDT Comment: Symptoms->Surveillance Resulting Agency Comment Spec In Lab John Neumann MD MICROBIOLOGY - GENERAL ORDER CHENG Performing Organization Address City/State/[place] [address] (ABNORMAL) BMP w/fasting Glucose (08/08/2021 5:14 AM EDT)Only the most recent of 2 resultswithin the time period is included. athologist Signature Glucose 119 (H) 65 - 99 [facility] Fasting mg/dL [facility] Comment: ?Fasting* Glucose Interpretive C [...] of Diabetes Mellitus, Position Statement from the [place] [employer]. ??Diabete s Care, Volume 33, Supplement 1, Mar 2009 BUN 23 (H) 10 - 20 mg/dL [facility] Creatinine 0.71 (L) 0.80 - 1.50 mg/dL [facility] Sodium 127 (L) 135 - 145 mmol/L [facility] Potassium 4.7 3.5 - 5.0 mmol/L [facility] Comment: Please note: ??Patients with WBC >100,00 0 may have falsely elevated Potassium levels. ??For accurate Potassium quantif ication in these patients send serum separator tube (gold top) for subsequent determinations. ??Contact the Clinical Chemistry Laboratory if there are any qu estions. Chloride 94 (L) 98 - 107 mmol/L [facility] CO2 25 22 - 31 mmol/L [facility] Anion Gap 8 5 - 15 mmol/L [facility] Calcium 7.7 (L) 8.5 - 10.5 mg/dL [facility] Estimated GFR 92 >=60 mL/min/1.73 m?? [facility] Comment: This patient? s estimated glomerular [...] Resulting Agency Comment Spec In Lab Flory M Eldor MD CHEMISTRY ORDERABLES Performing Organization Address City/[facility]/ZIP Code Phon e Number [address] Scan, Peripheral Blood (08/08/2021 5:14 AM EDT)Only the most recent of7 results within the time period is included. Patholo gist Method Time Signature Plat Estimate Decreased [facility] RBC Morphology Abnormal [facility] Ovalocytes 1-5 /HPF [facility] Rishabh Cells 1-5 /HPF [facility] Specimen Anatomical Collection Method Collection Time Receive d Time (Source) Location / / Volume Laterality Blood 08/08/2021 5:14 AM 5:21 EDT AM EDT Resulting Agency Comment Spec In Lab Flory Polo MD HEMATOLOGY ORDERABLES Performing Organization Address City/[facility]/[place] [address] (ABNORMAL) Hemogram (08/08/2021 5:14 AM EDT)Only the most recent of24 results within the time period is included. Analysis Performed At Patho logist Time Signature WBC 16.5 (H) 4.0 - 9.5 [facility] LAB[facility]ATORY RBC 4.51 (L) 4.58 - [facility] 5.54 [facility] x10(6)/[facility] LABORATORY Hemoglobin 14.0 13.7 - [facility] 16.5 g/dL [facility] Hematocrit 40.0 (L) 40.5 - [facility] 48.5 % [facility] MCV 88.7 82.9 - [facility] 93.1 [facility] LABORATORY MCH 31.0 27.5 - [facility] 32.1 pg [facility] MCHC 35.0 32.0 - [facility] 35.7 g/dL [facility] Platelets 114 (L) 145 - 357 [facility] x[facility] LABORATORY RDWSD 51.1 (H) 36.0 - [facility] 45.0 [facility] LABORATORY RDWCV 15.9 (H) 11.4 - [facility] 13.8 % [facility] MPV 10.2 7.6 - 12.9 [facility] LABORATORY nRBC % Auto 0.0 % [facility] nRBC Abs Auto 0.000 0.000 - [facility] 0.000 [facility] x10(3)/[facility] LABORATORY Specimen Anatomical Collection Method Collection Time Receive d Time (Source) Location / / Volume Laterality Blood 08/08/2021 5:14 AM 5:21 EDT AM EDT Resulting Agency Comment Spec In Lab Flory Polo MD HEMATOLOGY ORDERABLES Performing Organization Address City/State/[place] [address] (ABNORMAL) Differential, Automated (08/08/2021 5:14 AM EDT)Only the most recent of24 resultswithin the time period is included. [facility] gist Method Time Signature Neutrophils % 77.3 % [facility] Neutr Abs (ANC) 12.77 (H) 1.70 - [facility] 6.10 [facility] x10(3)/[facility] LABORATORY Lymphocytes % 5.9 % [facility] Lymphocytes Abs 1.0 0.9 - 3.2 [facility] x10(3)[facility] LABORATORY Monocytes % 7.2 % [facility] Monocyte Abs 1.2 (H) 0.3 - 0.9 [facility] x10(3)/[facility] LABORATORY Eosinophils % 0.2 % [facility] Eosinophils Abs 0.0 0.0 - 0.4 [facility] x10(3)[facility] LABORATORY Basophils % 0.7 % [facility] Basophils Abs 0.1 0.0 - 0.1 [facility] x10(3)/[facility] LABORATORY Immature Gran % 8.70 % [facility] Comment: Immature granulocytes(IG's)percentage an d absolute count will include metamyelocytes, myelocytes, and promyelo cytes. Blood smears from CBCs yielding IG's will be scanned manually for concor danrussell. If this scan disagrees with the automated IG or if promyelocytes are not ed, a manual differential will be performed. Beba Gran Abs 1.43 (H) 0.00 - 0.04 x10(3)/mcL [facility] Specimen Anatomical Collection Method Collection Time Receive d Time (Source) Location / / Volume Laterality Blood 08/08/2021 5:14 AM 5:21 EDT AM EDT Resulting Agency Comment Spec In Lab Flory Polo MD HEMATOLOGY ORDERABLES Performing Organization Address City/State/[place] [address] (ABNORMAL) Basic Metabolic Panel (non-fasting) (08/06/2021 3:29 AM EDT)Only the most recent of30 resultswithin the time period is included. P athologist Signature Glucose Lvl 116 65 - 199 [facility] mg/dL [facility] Comment: Diabetes: >=200 mg/dL plus symp toms BUN 26 (H) 10 - 20 mg/dL [facility] Creatinine 0.74 (L) 0.80 - 1.50 mg/dL [facility] Sodium 129 (L) 135 - 145 mmol/L [facility] Potassium 4.9 3.5 - 5.0 mmol/L [facility] Comment: Please note: ??Patients with WBC >100,00 0 may have falsely elevated Potassium levels. ??For accurate Potassium quantif ication in these patients send serum separator tube (gold top) for subsequent determinations. ??Contact the Clinical Chemistry Laboratory if there are any qu estions. Chloride 99 98 - 107 mmol/L [facility] CO2 22 22 - 31 mmol/L [facility] Anion Gap 8 5 - 15 mmol/L [facility] Calcium 7.8 (L) 8.5 - 10.5 mg/dL [facility] Estimated GFR 91 >=60 mL/min/1.73 m?? [facility] Comment: This patient? s estimated glomerular [...] / Volume Laterality Blood 08/06/2021 3:29 AM 3:38 EDT AM EDT Resulting Agency Comment Spec In Lab Ji Blanco MD CHEMISTRY ORDERABLES Performing Organization Address City/[facility] [place] [address] Heparin-induced platelet antibody (08/05/2021 12:08 PM EDT) Analysis Performed At [facility] Time Signature Heparin Ab Negative [facility]ORY Comment: 08/05/2021 17:22 ??QUALJR The [...] MD BLOOD BANK ORDERABLES Performing Organization Address City/[facility]/[place]IP [facility] [place] [address] Sodium, urine, random (07/30/2021 11:46 AM EDT)Only the most recent of3 results within the time period is included. P athologist Signature U Sodium 103 mmol/L [facility] Specimen Anatomical Collection Method Collection Time Receive d Time (Source) Location / / Volume Laterality Urine 07/30/2021 11:46 07/30/2021 3:31 AM EDT PM EDT Resulting Agency Comment Spec In Lab Ji Blanco MD URINE ORDERABLES Performing Organization Address City/[facility] Phon e Number [address] Osmolality, urine, random (07/30/2021 11:46 AM EDT)Only the most recent of3 resultswithin the time period is included. athologist Signature U Osmolality 860 50 - 1,200 [facility] mOsm/kg [facility] Specimen Anatomical Collection Method Collection Time Receive d Time (Source) Location / / Volume Laterality Urine 07/30/2021 11:46 07/30/2021 3:31 AM EDT PM EDT Resulting Agency Comment Spec In Lab Ji Blanco MD URINE ORDERABLES Performing Organization Address City/[facility] Phon e Number [address] Valproic Acid Level, Total (07/29/2021 7:24 AM EDT)Only the most recent of3 resultswithin the time period is included. athologist Signature Valproic Lvl 37 mg/L [facility] Comment: Therapeutic Range: Anticonvulsant Therapy: ??50-100 mg/L Manic Episodes Associated with Bipolar D isorder: ??50-125 mg/L Specimen Anatomical Collection Method Collection Time Receive d Time (Source) Location / / Volume Laterality Blood 07/29/2021 7:24 AM 7:32 EDT AM EDT Resulting Agency Comment Spec In Lab Presley Guerin MD CHEMISTRY ORDERABLES Performing Organization Address City/[facility]/[place] [address] (ABNORMAL) Hepatic Function Panel (07/29/2021 7:24 AM EDT)Only the most recent of3 resultswithin the time period is included. athologist Signature Total Protein 5.0 (L) 6.1 - 8.0 [facility] g/dL [facility] Albumin 3.0 (L) 3.2 - 5.2 [facility] g/dL [facility] AST 17 0 - 39 [facility] unit/L [facility] ALT 21 0 - 55 [facility] unit/L [facility] Alk Phos 75 40 - 130 [facility] unit/L [facility] Total 0.3 0.2 - 1.3 [facility] Bilirubin mg/dL [facility] Bili, Direct 0.1 0.0 - 0.3 [facility] mg/dL [facility] Specimen Anatomical Collection Method Collection Time Receive d Time (Source) Location / / Volume Laterality Blood 07/29/2021 7:24 AM 2 7:32 EDT AM EDT Resulting Agency Comment Spec In Lab Presley Guerin MD CHEMISTRY ORDERABLES Performing Organization Address City/State/ZIP Code Phon e Number [address] Phosphorus (07/26/2021 4:28 AM EDT)Only the most recent of9 resultswithin the time period is included. athologist Signature Phosphorus 3.5 2.5 - 4.5 [facility] mg/dL [facility] Specimen Anatomical Collection Method Collection Time Receive d Time (Source) Location / / Volume Laterality Blood 07/26/2021 4:28 AM 2 5:07 EDT AM EDT Resulting Agency Comment Spec In Lab Stephanie Bird APRN CHEMISTRY ORDERABLES Performing Organization Address City/State/ZIP Code Phon e Number [address] Magnesium (07/26/2021 4:28 AM EDT)Only the most recent of10 resultswithin the time period is included. athologist Signature Magnesium 0.92 0.69 - 1.07 [facility] mmol/L [facility] Specimen Anatomical Collection Method Collection Time Receive d Time (Source) Location / / Volume Laterality Blood 07/26/2021 4:28 AM 5:07 EDT AM EDT Resulting Agency Comment Spec In Lab Stephanie Bird ALINA CHEMISTRY ORDERABLES Performing Organization Address City/State/[place] [address] (ABNORMAL) Comprehensive metabolic panel (non-fasting) (07/26/2021 4:28 AM EDT) Only the most recent of2 resultswithin the time period is included. athologist Signature Glucose Lvl 120 65 - 199 [facility] mg/dL [facility] Comment: Diabetes: >=200 mg/dL plus symp toms BUN 26 (H) 10 - 20 mg/dL [facility] Creatinine 0.79 (L) 0.80 - 1.50 mg/dL [facility] Sodium 133 (L) 135 - 145 mmol/L [facility] Potassium 4.5 3.5 - 5.0 mmol/L [facility] Comment: Please note: ??Patients with WBC >100,00 0 may have falsely elevated Potassium levels. ??For accurate Potassium quantif ication in these patients send serum separator tube (gold top) for subsequent determinations. ??Contact the Clinical Chemistry Laboratory if there are any qu estions. Chloride 98 98 - 107 mmol/L [facility] CO2 22 22 - 31 mmol/L [facility] Anion Gap 13 5 - 15 mmol/L [facility] Calcium 8.0 (L) 8.5 - 10.5 mg/dL [facility] Total Protein 5.2 (L) 6.1 - 8.0 g/dL [facility] Albumin 3.3 3.2 - 5.2 g/dL [facility] AST 14 0 - 39 unit/L [facility] ALT 19 0 - 55 unit/L [facility] Alk Phos 93 40 - 130 unit/L [facility] Total Bilirubin 0.4 0.2 - 1.3 mg/dL [facility] Estimated GFR 88 >=60 mL/min/1.73 m?? [facility] Comment: This patient? s estimated glomerular [...] EDT Resulting Agency Comment Spec In Lab Setphanie Bird APRN CHEMISTRY ORDERABLES Performing Organization Address City/State/[place] [address] COVID-19 PCR (07/24/2021 8:54 AM EDT) [facility] Method Time Signature SARS-CoV-2 Not Detected Not Detected [facility] Comment: This result should [...] diagnosis of COVID-19 is performed using the [employer] JESSICA S-CoV-2 Assay as authorized by the FDA Emergency Use Authorization (EUA). This EUA assay is intended for In-vitro Diagnostic (IVD) use with respiratory sp ecimens such as nasopharyngeal swabs collected from individuals during the ac [place] phase of infection. This assay is performed based on the instructions for use provided by [employer] and additional guidance provided by CDC [...] clinical management guidance information are available at th e CDC Coronavirus Disease 2019 (COVID-19) webpage under Information fo r Healthcare Professionals (https://www.cdc.gov/coronavirus/2019-nc ov/hcp/index.html) Additional information about this and ot her EUA tests can be found in provider and patient fact sheets at the following FDA website: https://www.fda.gov/medical-devices/tpkixbsiioz-wdarttl-7012-bhskp-21-doshxljfd- gvt-oygykcetmrmybf-lqektfm-devices/eyirj-jntazlpcgug-vaxe SARS-Cov-2 RNA Source MILITARY SCIENCE TEACHER Swab [facility] Specimen (Source) Anatomical Collection Method Collection Time Re ceived Time Location / / Volume Laterality Nasopharyngeal Swab 07/24/2021 8:54 07/24 AM EDT 9:57 AM EDT Comment: Symptoms->Surveillance Resulting Agency Comment Spec In Lab Presley Guerin MD MICROBIOLOGY - GENERAL ORDER CHENG Performing Organization Address City/State/[place] [address] Rad Onc Neuro [...] who have questions please contact the health career coordinator that requested your imaging first. ? Electronically signed by: Hemant Vanegas MD , [facility] ([phone]), at 07/22/2021 4:12 PM Narrative 07/22/2021 4:12 PM EDT EXAMINATION: CT [...] unchanged as is local mass effect. Minimal uecv-yx-ddqpp midline shift is stable. N o downward [...] unchanged as is local mass effect. Minimal vsfn-hv-xqzir midline shift is stable. N o downward [...] ho have questions please contact the health career coordinator that requested your imaging first. Humza Laura MD IMG OUTSIDE INTERPRETATION O RDERABLES Ammonia (07/22/2021 4:59 AM EDT) athologist Signature Ammonia 33 16 - 60 [facility] Specimen Anatomical Collection Method Collection Time Receive d Time (Source) Location / / Volume Laterality Blood 07/22/2021 4:59 AM 2 5:05 EDT AM EDT Resulting Agency Comment Spec In Lab Stephanie Bird APRN CHEMISTRY ORDERABLES Performing Organization Address City/State/[place] [address] MRI Brain wwo Contrast (Generic) (07/21/2021 3:51 PM EDT)Only the most recent of 2 resultswithin the time period is included. Anatomical Region Laterality Modality Head Magnetic Resonance [...] who have questions please contact the health career coordinator that requested your imaging first. ? 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 COMPARISON: MRI brain 06/30/2021 FINDINGS: Prior left frontal and left parietal aircraft landing gear inspector niotomy changes again seen. Interval recurrence of [...] and anterior left frontal regions, nonspecific. Minimal taiv-dl-kamqx midline shift with no uncal herniation or downward transtentorial herniation. Stable small arachnoid cyst in the anter ior aspect of the right middle fossa. Procedure Note Hemant Vanegas MD - 07/21/2021Formatting o f this note might be different from the original. 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 COMPARISON: MRI brain 06/30/2021 FINDINGS: Prior left frontal and left parietal aircraft landing gear inspector niotomy changes again seen. Interval recurrence of [...] and anterior left frontal regions, nonspecific. Minimal qvsw-db-gyrge midline shift with no uncal herniation or downward transtentorial herniation. Stable small arachnoid cyst in the anter ior aspect of the right middle fossa. IMPRESSION 1. 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 2. Mild interval enlargement of 2 health information director ior right frontal metastatic lesions and a new subcentimeter metastatic lesio n in the anteromedial left temporal lobe. Thank you for letting us participate in the care of this patient. If you are a health care provider and have any questi ons regarding this report, please contact the number below. For patients w ho have questions please contact the health career coordinator that requested your imaging first. Electronically signed by: Hemant Vanegas MD , [facility] ([phone]), at 07/21/2021 4:04 PM Héctor Cuellar MD IMG MRI ORDERABLES CT Head wo Contrast (Generic) (07/21/2021 11:08 AM EDT)Only the most recent of2 resultswithin the time period is included. Anatomical Region Laterality Modality Head Computed Tomography [...] who have questions please contact the health career coordinator that requested your imaging first. ? Electronically signed by: Debo Davies MD, [facility] ([phone]), at 07/21/2021 11:33 AM Narrative 07/21/2021 11:33 [...] ho have questions please contact the health career coordinator that requested your imaging first. Héctor Cuellar MD IMG CT ORDERABLES Gold Tube HOLD (07/21/2021 10:50 AM EDT) athologist Signature Gold Hold Sample in [facility] LABORATORY Specimen Anatomical Collection Method Collection Time Receive d Time (Source) Location / / Volume Laterality Blood Venous Draw / 07/21/2021 10:50 07/21/2021 Unknown AM EDT 11:13 AM EDT Geovanny Vaughan MD CHEMISTRY ORDERABLES Performing Organization Address City/State/[place] [address] Blue Tube HOLD (07/21/2021 10:50 AM EDT) athologist Signature Blue Hold Sample in [facility] LABORATORY Specimen Anatomical Collection Method Collection Time Receive d Time (Source) Location / / Volume Laterality Blood Venous Draw / 07/21/2021 10:50 07/21/2021 Unknown AM EDT 11:13 AM EDT Geovanny Vaughan MD HEMATOLOGY ORDERABLES Performing Organization Address City/[facility]/ZIP Code Phon e Number [address] POCT Glucose (07/21/2021 10:38 AM EDT)Only the most recent of28 resultswithin the time period is included. athologist Signature POC Glucose 106 65 - 199 [facility] mg/dL [facility] Comment: Supplemental ranges: <140 mg/dL before meals <180 mg/dL all other times of the day Specimen Anatomical Collection Method Collection Time Receive d Time (Source) Location / / Volume Laterality Blood 07/21/2021 10:38 07/21/2021 AM EDT 10:38 AM EDT Emergency Dept POINT OF CARE TEST ORDERABLE S Performing Organization Address City/[facility]/ZIP [facility] [place] Number [address] Film Library- Storage Only CT Head (07/13/2021 5:19 PM EDT) Specimen (Source) Anatomical Location Collection Method / Collectio n Time Received Time / Laterality Volume Narrative RAD - 07/13/2021 5:19 PM EDT This exam is auto-finalizing. It's purpo se is for storage only. Darian Justice MD IMG FILM LIBRARY ORDERABLES Performing Organization Address City/[facility]/ZIP Code Phon e Number RAD [place], [place] SCAN DOC: CT SCAN (07/13/2021 12:00 AM EDT) Narrative This result has an attachment that is no t available. Unknown MEDIA MGR SCAN EXT ORDR/RSLT SCAN DOC: TELEMETRY STRIPS (07/03/2021 1:04 PM EDT)Only the most recent of5 resultswithin the time period is included. Narrative This result has an attachment that is no t available. Unknown MEDIA MGR SCAN EXT ORDR/RSLT Hemoglobin A1c (07/02/2021 2:10 AM EDT) athologist Signature Hemoglobin A1C 5.5 4.3 - 5.6 [facility] Comment: Reference Range: 4.3 - 5.6% 5.7 - 6.4% - Increased Risk of Developin g Diabetes Mellitus >= 6.5% - Consistent with diagnosis of D iabetes Mellitus In the absence of hyperglycemia (i.e. pl asma glucose > 200 mg/dL) or classic symptoms of hyperglycemia a repeat measu rement of HbA1c should be performed on a separate sample to confirm the diagnos is. Diagnosis and Classification of Diabetes Mellitus, Diabetes Care 2013; 36: Suppl. 1, S67-74 Est Avg Gluc See note mg/dL [facility] Comment: Estimated Average Glucose not appropriat e for patients over 70 years of age. eAG equivalents for HbA1c percentages: HbA1c(%) ?eAG(mg/dL) 6.0 ?126 6.5 ?140 7.0 ?154 7.5 ?169 8.0 ?183 8.5 ?197 9.0 ?212 9.5 ?226 10.0 ? 240 Limitations: The eAG calculation has not been validated on women, individuals below 18 years old and above 70 years old, and individuals with hemoglobinopathies. Additional resources are available on ADA website. Darian BERGERON, Carlos J, Tasha R, et al. ??Tr anslating the A1C assay into estimated average glucose values. ??Diabetes Care 2008:31(8):7600-7006. Specimen Anatomical Collection Method Collection Time Receive d Time (Source) Location / / Volume Laterality Blood 07/02/2021 2:10 AM 2 2:25 EDT AM EDT Resulting Agency Comment Spec In Lab Mary Lemus MD CHEMISTRY ORDERABLES Performing Organization Address [facility]/[place] [address] [facility] Solid Tumor NGS Panel (06/30/2021 12:51 PM EDT) Specimen Anatomical Collection Method Collection Time Receive d Time (Source) Location / / Volume Laterality Tissue 06/30/2021 12:51 07/11/2021 PM EDT 12:51 PM EDT Resulting Agency Comment Spec In Lab Darian Justice MD PATHOLOGY/CYTOLOGY ORDERABLE S Performing Organization Address City/[facility]/[place] [address] [facility] Surgical Pathology Report (06/30/2021 12:51 PM EDT) Component Value Ref Test Analysis Performed At [facility] gist Range Method Time Signature Surgical [id number] ? Location: 5WST; [facility]; [facility] Report The signing pathologist has (i) examined the relevant preparation(s) for the [facility] specimen(s) and (ii) rendered or confirmed the diagnosis(es) . HOSPITAL LABORATORY . ?Surgic al Pathology DIAGNOSIS A- Likely Lung Primary. ? Small Cell or Not???, excision: Metastatic carcinoma with neuroendocrine features B- Likely Lung Primary. ? Small Cell or Not???, excision: Metastatic carcinoma with neuroendocrine features (see comme nt) Comment: The majority of the specimens contain necrotic tissue, but small fragments are present with viable, la rge, epithelioid tumor cells with abundant cytoplasm and neuroendocrine features. A metastatic large cell neuroendocrine carcinoma is in the differential diagnosis. The case was reviewed with Dr. Ferdinand Callahan. Electronically signed by: ?Wally Ambriz MD Verified: ??07/23/2021 12:07 ??Pathologist Performed at: ??-[facility] Dept. of Pathology, [place], [place] SYNOPTIC none DISCUSSION Hematoxylin and eosin-staine d sections of the specimens show fragments of neoplastic epithelioid cells amid larg e areas of geographic necrosis. Most of the neoplastic cells are large, with abund ant eosinophilic or vacuolated cytoplasm and pleomorphic nuclei. Occasional cells pineda ve stippled chromatin or prominent nucleoli. A mitotic figure is identified. ADDITIONAL STUDIES Immunohistochemistry Studies: Formalin-fixed, paraffin-emb edded tissue sections are studied using the polymer technique with appropriate positive and negative controls. ?These IHC studies provide the pathologist wit h adjunctive diagnostic information. Antibody specificity has been verified by testin g antibodies on a series of in-house tissues with known immunohistochemical perform ance characteristics. The clinical interpretation of any antibody positive stain ing or its absence is evaluated within the context of clinical presentation, morp hology, histopathological criteria and other diagnostic tests. Block ??Antibody Result B1 ?CKAE1/3 ? Positive in a subset of cells. B1 ?CK7 ? Positive in a haylee rity of cells. B1 ?CK20 ?Negative. B1 ?TTF1 ?Negative. A1,B1 ? napsinA ? Weakly positive in a f ocus of cells. A1,B1 ? p40 ? Negative. A1,B1 ? p63 ? Negative. A1,B1 ? INSM1 ? Positive in a subset of cells. A1,B1 ? synaptophysin ? Positive in a small subse t of cells. B1 ?CD56 ?Positive in a subs et of cells. Molecular genetic testing has been order ed. The results will be reported, when available. SPECIMEN(S) SUBMITTED A - Likely Lung Primary. ? Small Cell or Not???, excision (1 ) . SPECIMEN(S) SUBMITTED B - Likely Lung Primary. ? Small Cell or Not???, excision (1 ) CLINICAL INFORMATION Brain metastases SPECIMEN PROCESSING A - Labeled/Fixative: Likely lung primary. ??? Small cell are not?, fresh for frozen section. Quantity/Size: Single, 0.3 cm. Tissue Description: Soft pink tissue. Sections/Processing: Touch prep(s) are prepared. The specimen is totally submitted for fr ozen section in 1 cassette labeled A1. B - Labeled/Fixative: Likely lung primary.? Small cell are n ot?, fresh. Quantity/Size: Single, 1.0 x 0.8 x 0.5 cm. Tissue Description: Discoid, rubbery quinn to cuellar-white soft tissue with lobulated borders. Sections/Processing: Serially sectioned and entirely submitted in 1 cassette labe led B1. ??shb ? Addendum ADDENDUM DISCUSSION Tissue: Likely Lung Primary, excision Tumor Proportion Score (TPS): ?% Expression: 10% ( ??PD-L1 Expression ) Interpretation Table: PD-L1 assay (22C3 pharmDX) for Keytruda Tumor Proportion Score (TPS): 10% ?? (PD-L1 Expression ) ? <1% ?PD-L1 Negative ? >=1% ? PD-L1 Expression Immunohistochemical assay wa s performed on paraffin-embedded tissue sections fixed in 10% neutral buffered for hernandez for 6-72 hours using the polymer system technique with appropriate controls. The assay was performed according to the equipment associate's instructions using Anti-PD-L1 (22C3, pharmDX) antibody. Electronically signed by: ?Gerber ARTHUR PhD, Katrin Verified: ??07/13/2021 10:01 ??Pathologist Performed at: ??-[facility] Dept. of Pathology, [place], [place] ?Fro micaela Section FROZEN SECTION DIAGNOSIS A-FS1: Smear and frozen sect ion preparations on ?? Likely Lung Primary. ? Small Cell or Not???, excision : EPITHELIOID NEOPLASM, FAVOR METASTATIC CARCINOMA. (TRAVIS) . FROZEN SECTION DIAGNOSIS 06/30/21 13:25 Electronically signed by: ?Katina ARTHUR, Wally Brown Verified: ??06/30/2021 13:30 ??Pathologist Performed at: ??-[facility] Dept. of Pathology, [place], [place] This intraoperative consultation should be interpreted as a preliminary diagnosis pending review of the entire specimen and sp ecial studies, if any. A final Surgical Pathology report will follow th is preliminary Frozen Section report(s). Specimen (Source) Anatomical Collection Method Collection Time Re ceived Time Location / / Volume Laterality 06/30/2021 12:51 PM EDT Darian Justice MD PATHOLOGY/CYTOLOGY ORDERABLE S Performing Organization Address City/[facility]/ZIP Code Phon e Number [address] Specimen to Pathology (06/30/2021 12:51 PM EDT)Only the most recent of2 results within the time period is included. Specimen Anatomical Collection Method Collection Time Receive d Time (Source) Location / / Volume Laterality AP Specimen 06/30/2021 12:51 06/30/2021 PM EDT 12:51 PM EDT Narrative [facility] - 06/30/2021 12:51 PM EDT Specimen requisition ordered. ??Separate Pathology report to follow Mary Lemus MD PATHOLOGY/CYTOLOGY ORDERABLE S Performing Organization Address City/State/[place] [address] EEG awake, asleep, drowsy, routine (06/29/2021 2:20 AM EDT) Narrative Wally Lemon Jr., MD - 06/29/2021 2: 20 AM EDT Jessie Radford MD ? 06/29/2021 ??9:55 AM [facility] Department of Neurology Inpatient EEG Report Name of the Patient: ??Ilir Luis Fernando Laird Date of : ?1945 Date of Service: ?06/29/2021 Referring physician: ?Juan Gaytan DO BRIEF HISTORY: Ilir Laird is a 75 y.o. patient with s eizure. MEDICATIONS: Current Facility-Administered Medication s Medication Dose Route Frequency Provider Last Rate Last Admin ? ? metoprolol tartrate (Lopressor) tablet 12.5 mg ??12.5 mg Oral Q8H CORIN SegundozeyadJuan E, DO ? sodium chloride 0.9 % (flush) (BD PosiFlush Normal Saline 0.9) flush 5 mL ??5 mL Intravenous BID Juan Gaytan Zeyad, DO ?? 5 mL at 06/29/21 0100 ? ? sodium chloride 0.9 % (flush) (BD PosiFlush Normal Saline 0.9) flush 5-20 mL ??5-20 mL Intravenous Q1 M in PRN Juan Gaytan E, DO ? lidocaine (Xylocaine) 1% (10 mg/mL) injection 3 mg ??0.3 mL Subcutaneous Once PRN SegundozeyadJuan E, DO ? acetaminophen (Tylenol) tablet 975 mg ??975 mg Oral Q8H PRN Juan Gaytan E, DO ? melatonin tablet 6 mg ??6 mg Oral Nightly LucilaJuan E, DO ? dexamethasone (Decadron) tablet 4 mg ??4 mg Oral Q6H [facility] Juan Gaytan E, DO ?? 4 mg at 06/28/21 2344 ? ? atorvastatin (Lipitor) tablet 80 mg ??80 mg Oral QPM SegundozeyadJuan E, DO ?? 80 mg at 06/28/212248 ? ? pantoprazole EC (Protonix) tablet 40 mg ??40 mg Oral Daily SegundoJuan jeffers E, DO ?? 40 mg at 06/28/212248 ? ? levETIRAcetam (Keppra) tablet 500 mg ??500 mg Oral BID LucilaJuan E, DO ? METHODS: A 21 channel digitized electroencephalog michael was performed in the [facility] Clinical Neurophysio logy Laboratory. The 10/20 international system of electrode placement was used and bipolar and referential electrode montag es were recorded. ??In addition to EEG the patient was monitore d for EKG and lateral/vertical eye movements. Video wa s recorded during the session. The duration of the recording w as 70 minutes. ASSEMBLER INSULATOR'S REPORT: Performed by: AT Patient was not sleep deprived. Sleep was attained. Photic stimulation was performed. Hyperventilation was not performed. Effo rt was not adequate. Movement and other artifact was not sign ificant. Comments: None. ELECTROENCEPHALOGRAPHER'S REPORT: Background During the awake state with the eyes yana sed the background consisted of a moderate amplitude, 8-9 H z posterior reactive rhythm that attenuated appropriately wit h eye opening. There was a normal anterior-posterior voltage grad ient. With eye opening the background activity changed to a low voltage mixture of alpha, beta, and occasional theta range frequencies. Continuous left frontally predominant ba ckground slowing is present. Sleep Stage II sleep was obtained and consiste d of symmetrical sleep spindles and vertex sharp waves. Hyperventilation Hyperventilation was not performed as a public health safety measure during current global viral pand emic. Photic Stimulation Photic stimulation using a step-jovel inc rease in photic frequency varying from 1-21 Hertz was performed and did no t elicit abnormalities. Abnormal Interictal Activity None Clinical/push button events None EKG Single lead EKG regular. PRIOR EEG: No previous EEG reports were available. IMPRESSION: This 1 hour inpatient EEG in wakefulness , drowsiness, and sleep is abnormal due to continuous left front ally maximal slowing of the background, a finding consistent wit h known structural abnormality. No seizures or epileptiform discharges were observed. Jessie Radford MD Epilepsy fellow PGY-6 Pager #[phone] 06/29/2021 Juan Gaytan DO NEUROLOGY ORDERABLES CT Chest Abdomen Pelvis w Contrast (Generic) (06/28/2021 11:22 PM EDT) Anatomical Region Laterality Modality Abdomen, Pelvis Computed Tomography Specimen (Source) Anatomical Collection Method Collection Time Re ceived Time Location / / Volume Laterality 06/28/2021 11:40 PM EDT Impressions 06/29/2021 1:59 AM EDT 1. ??Right hilar masses with central low -attenuation suggesting necrosis. Pathologic mediastinal adenopathy. Findi ngs likely represent primary lung cancer. 2. ??8mm low-attenuation focus posterior segment right lobe of liver, too small to characterize. 3. ??Changes of centrilobular emphysema. Thank you for letting us participate in the care of this patient. ??If you are a health care provider and have any questi ons regarding this report, please contact the number below. ??For patients who have questions please contact the health career coordinator that requested your imaging first. ? Electronically signed by: Keo Wong MD, [facility] ([phone]), at 06/29/2021 1:59 AM Narrative 06/29/2021 1:59 AM EDT EXAMINATION: CT CHEST ABDOMEN PELVIS W CONTRAST (GENERIC) CLINICAL HISTORY: Metastatic disease lexi luation new brain masses concerning for metastat ic disease TECHNIQUE: Helical CT of the chest, abdo men, and pelvis was performed following the intravenous administration of contra st. Administered 88.0 ml of OMNIPAQUE 350.00 mg/ml. Oral contrast was ??admini stered. COMPARISON: Head CT and brain MRI dated 06/28/2021 FINDINGS: Chest: Lungs and large airways: Peripheral bleb s at the upper lung zones, right greater than left. Cystic changes in the lungs consistent w ith centrilobular emphysema. Linear atelectasis or scarring left base greater than right. Pleura: No effusion. Heart/vasculature: Normal. Lymph nodes: 11 mm short axis precarinal node. Malignant appearing rim-enhancing nodes in the subcarinal region, 16 mm short axis and 15 mm short axis, images 57 thr ough 64 series 3. Mediastinum and moni: Large right hilar masses with relative low attenuation centrally. The cephalad mass best apprec iated on image 53 of series 8 and image 53 of series 3 measures approximately 3. 2 cm AP by 3.2 cm transverse by 3 cm in the craniocaudal dimension. The more cau peg of the hilar masses measures approximately 3 cm AP by 2 cm transverse by approximately 2 cm in the craniocaudal dimension. This has a appea awa of a conglomerate lorene mass in the right hilar region. Abdomen/pelvis: Liver: 8 mm low-attenuation lesion poste rior segment right lobe liver near the dome image 88 series 3. 2 small to malinda cterize. No other liver lesion. No intrahepatic ductal dilatation. Bile ducts: Nondilated. Gallbladder: No calcified gallstones. No rmal caliber wall. Pancreas: Normal attenuation without sarah beverly dilatation. Spleen: Normal. Adrenals: Normal. Kidneys: Asymmetric nephrograms. No obst ruction. No mass. Urinary Bladder: Normal. Vasculature: Atherosclerotic changes of the of the aorta and iliac vessels without aneurysm. Lymph Nodes: ??No enlarged lymph nodes. Bowel: Nondilated, no wall thickening. ? ? Peritoneum and mesentery: No ascites, fr ee air, or loculated fluid collection. No mesenteric inflammation. Abdominal wall: Fat-containing inguinal hernias, left larger than right. Tiny fat-containing umbilical hernia. Reproductive organs: Prostate enlargemen t, 5.9 cm. Osseous structures: No suspicious lesion s. Disc space degenerative changes greatest at the L5-S1, L3-4 and L2-3 lev els. Retrolisthesis of L5 on S1 greater than L3 on L4 and L2 on L3. Minimal anterolisthesis L4 on L5 related to facet arthropathy. Procedure Note Keo Wong MD - 06/29/2021Formatt ing of this note might be different from the original. EXAMINATION: CT CHEST ABDOMEN PELVIS W C ONTRAST (GENERIC) CLINICAL HISTORY: Metastatic disease lexi luation new brain masses concerning for metastat ic disease TECHNIQUE: Helical CT of the chest, abdo men, and pelvis was performed following the intravenous administration of contra st. Administered 88.0 ml of OMNIPAQUE 350.00 mg/ml. Oral contrast was administ ered. COMPARISON: Head CT and brain MRI dated 06/28/2021 FINDINGS: Chest: Lungs and large airways: Peripheral bleb s at the upper lung zones, right greater than left. Cystic changes in the lungs consistent w ith centrilobular emphysema. Linear atelectasis or scarring left base greater than right. Pleura: No effusion. Heart/vasculature: Normal. Lymph nodes: 11 mm short axis precarinal node. Malignant appearing rim-enhancing nodes in the subcarinal region, 16 mm short axis and 15 mm short axis, images 57 thr ough 64 series 3. Mediastinum and moni: Large right hilar masses with relative low attenuation centrally. The cephalad mass best apprec iated on image 53 of series 8 and image 53 of series 3 measures approximately 3. 2 cm AP by 3.2 cm transverse by 3 cm in the craniocaudal dimension. The more cau peg of the hilar masses measures approximately 3 cm AP by 2 cm transverse by approximately 2 cm in the craniocaudal dimension. This has a appea awa of a conglomerate lorene mass in the right hilar region. Abdomen/pelvis: Liver: 8 mm low-attenuation lesion poste rior segment right lobe liver near the dome image 88 series 3. 2 small to malinda cterize. No other liver lesion. No intrahepatic ductal dilatation. Bile ducts: Nondilated. Gallbladder: No calcified gallstones. No rmal caliber wall. Pancreas: Normal attenuation without sarah beverly dilatation. Spleen: Normal. Adrenals: Normal. Kidneys: Asymmetric nephrograms. No obst ruction. No mass. Urinary Bladder: Normal. Vasculature: Atherosclerotic changes of the of the aorta and iliac vessels without aneurysm. Lymph Nodes: No enlarged lymph nodes. Bowel: Nondilated, no wall thickening. Peritoneum and mesentery: No ascites, fr ee air, or loculated fluid collection. No mesenteric inflammation. Abdominal wall: Fat-containing inguinal hernias, left larger than right. Tiny fat-containing umbilical hernia. Reproductive organs: Prostate enlargemen t, 5.9 cm. Osseous structures: No suspicious lesion s. Disc space degenerative changes greatest at the L5-S1, L3-4 and L2-3 lev els. Retrolisthesis of L5 on S1 greater than L3 on L4 and L2 on L3. Minimal anterolisthesis L4 on L5 related to facet arthropathy. IMPRESSION 1. Right hilar masses with central low-a ttenuation suggesting necrosis. Pathologic mediastinal adenopathy. Findi ngs likely represent primary lung cancer. 2. 8mm low-attenuation focus posterior s egment right lobe of liver, too small to characterize. 3. Changes of centrilobular emphysema. Thank you for letting us participate in the care of this patient. If you are a health care provider and have any questi ons regarding this report, please contact the number below. For patients w ho have questions please contact the health career coordinator that requested your imaging first. Jimena Houston Christie STUDY SPECIALIST IMG CT ORDERABLES APTT (06/28/2021 9:38 PM EDT) athologist Signature PTT 33 25 - 37 sec [facility] Comment: The PTT is NOT appropriate for heparin m onitoring. Use the Anti-Xa level for heparin monitoring (HEP UFH) or LMWH mon itoring (HEP LMW). A PTT less than 37 seconds generally indicates adequate hem ostasis. Specimen Anatomical Collection Method Collection Time Receive d Time (Source) Location / / Volume Laterality Blood 06/28/2021 9:38 PM 9:50 EDT PM EDT Resulting Agency Comment Spec In Lab Juan Gaytan DO HEMATOLOGY ORDERABLES Performing Organization Address City/State/[place] [address] Prothrombin Time (06/28/2021 9:38 PM EDT) athologist Signature PT 12.3 9.4 - 12.5 [facility] LABORATORY INR 1.1 [facility] Comment: An INR <2.0 indicates adequate procoagul ant activity for hemostasis in most patients without underlying bleeding dis orders, though the INR may not adequately reflect hemostatic capacity i n patients with liver disease and synthetic impairment. The recommended ta rget INR range for therapeutic anticoagulation is 2.0 ? 3.0 for most applications, though lower and higher ranges may be appropriate depending on c linical circumstances. Specimen Anatomical Collection Method Collection Time Receive d Time (Source) Location / / Volume Laterality Blood 06/28/2021 9:38 PM 9:50 EDT PM EDT Resulting Agency Comment Spec In Lab Juan Gaytan DO HEMATOLOGY ORDERABLES Performing Organization Address City/State/ZIP Code [place] [address] XR Chest PA & Lateral (Generic) (06/28/2021 8:51 PM EDT) Anatomical Region Laterality Modality Chest N/A Digital Radiography Specimen (Source) Anatomical Location Collection Method / Collectio n Time Received Time / Laterality Volume Impressions 06/28/2021 9:23 PM EDT Abnormal enlarged size of the right hilum concerning for adenopathy versus mass. Consider chest CT with contrast for furt her characterization. Thank you for letting us participate in the care of this patient. ??If you are a health care provider and have any questi ons regarding this report, please contact the number below. ??For patients who have questions please contact the health career coordinator that requested your imaging first. ? Electronically signed by: Derrick angel MD, [facility] ([phone]), at 06/28/2021 9:23 PM Narrative 06/28/2021 9:23 PM EDT EXAMINATION: XR CHEST PA AND LATERAL (GENERIC) CLINICAL HISTORY: new brain mass, cough TECHNIQUE: PA and lateral views of the chest, 3 aleyda ges COMPARISON: None FINDINGS: There are median sternotomy wires. There is abnormal prominence of the right hilar contour. The left hilum is normal. No focal consolidation to suggest pneumonia. No pulmonary vascular congest ion. No pneumothorax. No pleural effusions. Normal size of the cardiac si lhouette. No acute osseous findings. Procedure Note Derrick Suresh MD - 06/28/2021Fo rmatting of this note might be different from the original. EXAMINATION: XR CHEST PA AND LATERAL (AngelListIC) CLINICAL HISTORY: new brain mass, cough TECHNIQUE: PA and lateral views of the chest, 3 aleyda ges COMPARISON: None FINDINGS: There are median sternotomy wires. There is abnormal prominence of the right hilar contour. The left hilum is normal. No focal consolidation to suggest pneumonia. No pulmonary vascular congest ion. No pneumothorax. No pleural effusions. Normal size of the cardiac si lhouette. No acute osseous findings. IMPRESSION Abnormal enlarged size of the right hilu m concerning for adenopathy versus mass. Consider chest CT with contrast for furt her characterization. Thank you for letting us participate in the care of this patient. If you are a health care provider and have any questi ons regarding this report, please contact the number below. For patients w ho have questions please contact the health career coordinator that requested your imaging first. Electronically signed by: Derrick angel MD, [facility] ([phone]), at 06/28/2021 9:23 PM Jimena Christie APRN IMG DX ORDERABLES Film Library- Storage Only MR Head and Spine (06/28/2021 6:09 PM EDT) Specimen (Source) Anatomical Location Collection Method / Collectio n Time Received Time / Laterality Volume Narrative Dicom, Auditing User - 06/28/2021 6:09 P M EDT This exam is auto-finalizing. It's purpo se is for storage only. Myriam Riggins MD IM FILM LIBRARY ORDERABLES Film Library- Storage Only MR Spine (06/24/2021 12:00 AM EDT) Specimen (Source) Anatomical Location Collection Method / Collectio n Time Received Time / Laterality Volume Narrative Dicom, Auditing User - 06/28/2021 6:10 P M EDT This exam is auto-finalizing. It's purpo se is for storage only. Myriam Riggins MD IMG FILM LIBRARY ORDERABLES from Last 3 Months Insurance Payer Benefit Plan / Subscriber ID Effective Dates Phone Addre ss Type Group MVP MANAGED MVP MANAGED [id number] 2021-Prese [phone] [id number] MEDICARE MEDICARE nt [address] [place] [address] Advance Directives Documents on File Type Date Recorded Patient Peoplesoft Explanati on Advance Directives and 07/25/2021 3:02 PM [place] Living Will POLST/COLST (Order for 07/22/2021 [place] POLST 07/22/2021 Life Sustaining Treatment) Personal Peoplesoft 07/21/2021 7:15 PM Latest Code Status on File Code Status Date Activated Date Inactivated Comments Do NOT Attempt CPR - Inpatient 07/22/2021 12:47 PM 08/12/2021 6:32 PM Code Status decision made by: Patient Healthcare Agent (DPOA) Name (and relationship if needed): daughters Content of discussion: DNR/DNI Independent of Code Status decision, are there any PRE Yes Arrest limitations (Intubation, Pressors, Cardioversion / Pacing, etc)? PRE Arrest Intubation Permitted? No Attempt Cardiopulmonary Resuscitation - 07/21/2021 5:20 PM 12:47 PM Inpatient Code Status decision made by: Patient Attempt Cardiopulmonary Resuscitation - 06/28/2021 9:55 PM 022 2:51 PM Inpatient Code Status decision made by: Patient Attempt Cardiopulmonary Resuscitation - 06/28/2021 8:42 PM 022 9:55 PM Inpatient Code Status decision made by: Patient Content of discussion: patient wishes full resucitative effo rts including intubation/chest compressions/medication s Care Teams Thoroughbred Horse Farm Manager Relationship Specialty Start Date End Date Myriam Riggins MD PCP - General Family Medicine 06/28/[address] [place] [address]
--- OUTSIDE RECORDS SUMMARY | 2021-09-07 15:36 | XMS_ITS | Encounter Summary ---
:1945 Author Organization [facility] [place] [address] Care Team Providers Name Role Phone Myriam Riggins MD Primary Care Provider Encounter Details Date Type Department Care Team Description 07/18/2021 Telephone Neurosurgery at [facility] [place] [address] Social History Tobacco Use Types Packs/Day Years [...] on file documented as of this encounter Miscellaneous Notes Telephone Encounter - Whitney Herrmann RN - 07/18/2021 1:24 PM EDT Ilir Luis Fernando Eitan [id number] 1945 Caller: Naomi (Gabrielle) Reason for call: asking if they may remove the kedar. Incision looks good. Ilir is s/p L frontal and L parietal craniotomy for resection of tumors, 06/30/21, Dr. Justice Plan: I let Naomi know they may remove the kedar. Telephone Encounter - Jessie Dominguez - 07/18/2021 1:19 PM EDT Caller: Office If not the patient: Name of caller: Naomi Relationship to patient: [facility] Personal Rep on file?: Best time to reach caller: anytime Best number to reach caller:([phone] Reason for call: Calling asking if okay to remove kedar at rehab vs DH, please call to confirm okay. Recent Surgery?: Yes, Reshma If before 4:00 pm: Inform caller that the typical expectation for a call back is within 1-2 hours. If after 4:00 pm: Inform caller that if the nurse does not call back by the end of the day, they will be called in the AM of the next business day. documented in this encounter Plan of Treatment Upcoming Encounters Date Type Specialty Care Team Description 09/13/2021 Hospital Encounter Radiology Curtis Laura MD [facility] [address] [place], [place] [address] (Wo rk) 10/07/2021 Office Visit Neurology Wally Chow MD [facility] NEUROLOGY [place], [place] [address] (Wo rk) documented as of this encounter Visit Diagnoses Not on filedocumented in this encounter Care Teams Livestock Sales Representative Relationship Specialty Start Date End Date Myriam Riggins MD PCP - General Family Medicine 06/28/[address] [place] [address] documented as of this encounter
--- OUTSIDE RECORDS SUMMARY | 2021-09-07 15:36 | XMS_ITS | Encounter Summary ---
:1945 Author Organization [facility] [place] [address] Care Team Providers Name Role Phone Myriam Riggins MD Primary Care Provider Reason for Referral Diagnostic Test (Routine) - Authorized Specialty Diagnoses / Procedures Referred By Contact Refer red To Contact Radiology Diagnoses Brain metastases Humza Laura MD [facility] Rad Mri Procedures MRI Brain wwo Contrast (Generic) [facility] [place] [address] [place] [address] Referral ID Status Reason Start Expiration Visits Visits Date Date Requested Authorized [id number] Authorized Specialty 08/12/2021 02/11/2023 1 1 Service Requested Reason for Visit Reason Comments On Treatment Visit Auth/Cert Specialty Diagnoses / Procedures Referred By Contact Refer red To Contact Diagnoses Right sided weakness Procedures EMERGENCY OBSVO TO IPI Referral ID Status Reason Start Date Expiration Date Visits Requ ested Visits Authorized [id number] 1 1 Encounter Details Date Type Department Care Team Description 08/10/2021 Office Visit Radiation Oncology at Humza Laura MD Brain metastases [facility] [place] [address] RADIATION ONCOLOGY [phone] [place], [place] [address] (Wo rk) Social History Tobacco Use Types Packs/Day Years [...] on file documented as of this encounter Patient Instructions Patient InstructionsAshly Edmonds RN - 08/10/2021 5:05 PM EDT Done with Treatment Instructions after Receiving Brain Radiation Congratulations on finishing your radiation treatments. If you are on dexamethasone, follow the taper instructions carefully. Listed below are potential side effects to the radiation you received. Please call us with any questions or concerns. A follow up appointment will be arranged and our bilingual secretary will notify you. Side Effects: Common side effects include: Hair loss--around the last week of your radiation or possibly after finishing your treatments, your hair will begin to come out. Hair loss is usually complete, and your hair will not start to grow backfor another 3 months or so. Your physician can write a prescription for a wig--your insurance plan may cover part of the cost. The ???Look Good--Feel Better?? program sponsored by the [employer] also has a number of scarves and head coverings available. Fatigue--the severity of fatigue you may experience depends on your pre- treatment energy levels and previous treatments. It will subside in 2-4 weeks after treatment is completed. Pace your activities to complete those important to you in the morning, allow rest periods in the day as needed. Have a regular bedtime and wake up time. Do not stay in bed all day as this will worsen your fatigue. Exerciseincreases your energy level and you can do this as tolerated. Daily walking for 20-30 minutes is recommended. Possible side effects include: Nausea/vomiting--please tell us if this happens to you. There are medications that can help with this side effect. Scalp reddening--your forehead and ears are particularly prone to a skin reaction. Be careful of sunexposure for a year following your treatment: wear a broad-brimmed hat when out in the sun for longer than 30 minute periods. Continue applying the cream to your skin in the treatment area for two more weeks. Brain swelling--symptoms of swelling can include headache, nausea, vomiting, vision or hearing changes, unsteadiness or weakness. Please let your physician or nurse know if you experience any of these symptoms, especially if it is a new change for you. Section of Radiation Oncology Your physician: Dr. Humza Laura Our normal business hours are- Sunday - Sunday 8 AM to 5 PM for [facility] for [facility] If you have questions about your radiation appointments please ask to speak to one of our bilingual secretary staff. If you have questions for a nurse about radiation treatments, radiation side effects or you are not feeling well it is best to call early in the day. This allows a nurse to return your call by 5 PM thesa. If you call after 4 PM, a nurse will return your call by 5 PM the following day, unless itis urgent. A Radiation Oncology doctor is nurse monitoring after our normal hours and on weekends. To call for urgent medical issues from radiation treatments that can not wait until normal business hours, please call and have the demolition crane operator page the Radiation Oncologist nurse monitoring. documented in this encounter Progress Notes Humza Laura MD - 08/10/2021 4:30 PM EDT ON TREATMENT VISIT NOTE Identification: Mr. Laird is undergoing treatment with radiation therapy at [facility] for large cell neuroendocrine carcinoma, lung primary, with multiple brain metastases. Current treatment dose: 35.0 Gy in 14 fractions Anticipated total dose: 35.0 Gy in 14 fractions Evaluation of Port Verification Films: OK. For details, see electronic film record in Safe Bul[employer] System. Changes in medical condition: Some further improvement in strength in both UE and LE. Otherwise stable. Steroid taper. Pain management: None at present Physical examination* There were no vitals taken for this visit. KPS 60. Pupils equal, round, reactive to light. Extraocular movements intact. Visual sherwood full to confrontation bilaterally. Strength and sensation bilaterally symmetric and intact across the face. Hearing intact, baseline, slightly decreased on left. Sternocleidomastoid functions bilaterally intact. Uvula elevates midline. Tongue extends midline. Strength, sensation, DTRs symmetric and intact in the upper and lower extremities on left. There is some further improved strength with finger granite countertop installer, elbow flexion,shoulder abduction, thigh flexion, on right. Little motion at ankle. Gait not tested. Intact finger- nose testing on left. Investigations: None at present. Assessment (including toxicity, grade, and attribution): Some continued improvement in strength in right UE and LE. Plan: Discharge to rehab. Steroid taper. Memantine dose escalation weekly to 10 mg BID. Follow-up shortly with Dr. Feng, medical oncology. Repeat brain MRI in 6 weeks and follow-up visit. Consider SRS boost. Recommendation on continuing course of radiation therapy: Completes XRT documented in this encounter Plan of Treatment Upcoming Encounters Date Type Specialty Care Team Description 09/13/2021 Hospital Encounter Radiology Curtis Laura MD [facility] [place], [place] [address] (Wo rk) 10/07/2021 Office Visit Neurology Wally Chow MD [facility] NEUROLOGY [place], [place] [address] (Wo rk) Scheduled Orders Name Type Priority Associated Diagnoses Order S chedule MRI Brain wwo Contrast Imaging Routine Brain metastases E xpected: 08/12/2021, (Generic) Expires: 2021 documented as of this encounter Visit Diagnoses Diagnosis Brain metastases 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
--- OUTSIDE RECORDS SUMMARY | 2021-09-07 15:36 | XMS_ITS | Encounter Summary ---
:1945 Author Organization [facility] [place] [address] Care Team Providers Name Role Phone Myriam Riggins MD Primary Care Provider Encounter Details Date Type Department Care Team Description 07/28/2021 Telephone Neurosurgery [place] [facility] Glenis Campuzano MD [facility] [place] [address] NEUROSURGERY [phone] [place], [place] [address] (Wo rk) Social History Tobacco [...] this encounter Miscellaneous Notes Telephone Encounter - Jessie Dominguez - 07/28/2021 10:53 AM EDT Scheduled for 08/16 with CB Franco, Please help me schedule a follow up appointment as per below. ID: Ilir Laird, 75 y.o. male, Contact info: see epic Reason: F/u L skip craniotomies for tumor Provider: Dr. Justice Timeframe: 4-6 wks, please move previously scheduled 07/26 appt to a month out Imaging: TBD based on his radiation & oncologic treatments Thank you, Glenis Campuzano MD 07/23/2021 3:16 PM documented in this encounter Plan of Treatment Upcoming Encounters Date Type Specialty Care Team Description 09/13/2021 Hospital Encounter Radiology Curtis Laura MD [facility] RAD[place]ATION [place], [place] [address] (Wo rk) 10/07/2021 Office Visit Neurology Wally Chow MD [facility] NEUROLOGY [place], [place] [address] (Wo rk) documented as of this encounter Visit Diagnoses Not on filedocumented in this encounter Care Teams Boarding Specialist Relationship Specialty Start Date End Date Myriam Riggins MD PCP - General Family Medicine 06/28/[address] [place] [address] documented as of this encounter
--- OUTSIDE RECORDS SUMMARY | 2021-09-07 15:36 | XMS_ITS | Encounter Summary ---
:1945 Author Organization [place] [address] Care Team Providers Name Role Phone Myriam Riggins MD Primary Care Provider Encounter Details Date Type Department Care Team Description 07/18/2021 Telephone Radiation [place]cology [place] [facility] [address] Social History Tobacco Use Types Packs/Day [...] 09/13/2021 Hospital Encounter Radiology Curtis Laura MD [facility] RAD[place]ATION [place], [place] [address] (Wo rk) 10/07/2021 Office Visit Neurology Wally Chow MD [facility] [address] [place], [place] [address] (Wo rk) documented as of this encounter Visit Diagnoses Not on filedocumented in this encounter Care Teams Customs Brokerage Agent Relationship Specialty Start Date End Date Myriam Riggins MD PCP - General Family Medicine 06/28/[address] [place] [address] documented as of this encounter
--- OUTSIDE RECORDS SUMMARY | 2021-09-07 15:36 | XMS_ITS | Encounter Summary ---
:1945 Author Organization [facility] [place] [address] Care Team Providers Name Role Phone Myriam Riggins MD Primary Care Provider Reason for Visit Reason Onset Date Comments Appointment 07/14/2021 Encounter Details Date Type Department Care Team Description 07/14/2021 Telephone Neurology at [facility] Geovanny Garner, Appointment [facility] [place] [address] [facility] [phone] NEUROLOGY DEPT [place], [place] [address] (Wo rk) Social History Tobacco [...] this encounter Miscellaneous Notes Telephone Encounter - Roya Jha - 07/14/2021 4:03 PM EDT ED notes requested from [facility], 07/14/21. Telephone Encounter - Marylu Calderon - 07/14/2021 3:43 PM EDT Patient returned call to schedule LITHOGRAPHERS PRINTER appt. Scheduled with Dr. Mccoy on 08/09. Patient states he was seen at [facility] ED Telephone Encounter - Roya Jha - 07/14/2021 2:42 PM EDT Scheduling Instructions Provider: Any Epilepsy provider/ fellow Visit Type (paste AMERICO Instructions or manually enter): Next available 1 hour new patient appointmentfor recent ED visit for seizures. Also request ED notes from recent visit. Need to find out which facility he went to. If EMG Visit needed list diagnosis for the EMG to be used in Decision Tree: Appt Note: new neurology eval for seizure management documented in this encounter Plan of Treatment Upcoming Encounters Date Type Specialty Care Team Description 09/13/2021 Hospital Encounter Radiology Curtis Laura MD [facility] RAD[place]ATION [place], [place] [address] (Wo rk) 10/07/2021 Office Visit Neurology Wally Chow MD [facility] [address] [place], [place] [address] (Wo rk) documented as of this encounter Visit Diagnoses Not on filedocumented in this encounter Care Teams Religious Activities Director Relationship Specialty Start Date End Date Myriam Riggins MD PCP - General Family Medicine 06/28/[address] [place] [address] documented as of this encounter
--- OUTSIDE RECORDS SUMMARY | 2021-09-07 15:36 | XMS_ITS | Encounter Summary ---
:1945 Author Organization [facility] [place] [address] Care Team Providers Name Role Phone Myriam Riggins MD Primary Care Provider Encounter Details Date Type Department Care Team Description 07/22/2021 Telephone Hospitalist at [facility] Presley Guerin MD [facility] [place] [address] [place] [address] MEDICINE [phone] [place], [place] [address] (Wo rk) Social History Tobacco [...] 09/13/2021 Hospital Encounter Radiology Curtis Laura MD [facility] ER [address] [place] [address] (Wo rk) 10/07/2021 Office Visit Neurology Wally Chow MD [facility] ER NEUROLOGY [place], [place] [address] (Wo rk) documented as of this encounter Visit Diagnoses Not on filedocumented in this encounter Care Teams Powersaw Supervisor Relationship Specialty Start Date End Date Myriam Riggins MD PCP - General Family Medicine 06/28/21 [facility] [address] [place] [address] documented as of this encounter
--- OUTSIDE RECORDS SUMMARY | 2021-09-07 15:36 | XMS_ITS | Encounter Summary ---
:1945 Author Organization [facility] [place] [address] Care Team Providers Name Role Phone Myriam Riggins MD Primary Care Provider Reason for Visit Auth/Cert Specialty Diagnoses / Procedures Referred By Contact Refer red To Contact Diagnoses Right sided weakness Procedures EMERGENCY OBSVO TO IPI Referral ID Status Reason Start Date Expiration Date Visits Requ ested Visits Authorized [id number] 1 1 Encounter Details Date Type Department Care Team Description 08/03/2021 Office Visit Radiation Oncology at Humza Laura MD Brain metastases [facility] [place] [address] RADIATION ONCOLOGY [phone] [place], [place] [address] (Wo rk) Social History Tobacco [...] documented as of this encounter Progress Notes Humza Laura MD - 08/03/2021 4:00 PM EDT ON TREATMENT VISIT NOTE Identification: Mr. Laird is undergoing treatment with radiation therapy at [facility] for large cell neuroendocrine carcinoma, lung primary, with multiple brain metastases. Current treatment dose: 30.0 Gy in 12 fractions Anticipated total dose: 35.0 Gy in 14 fractions Evaluation of Port Verification Films: OK. For details, see electronic film record in [employer]. Changes in medical condition: Some improvement in strength in both UE and LE. Otherwise stable. Instituting steroid taper. Pain management: None at present Physical [...] and lower extremities on left. There is further improved strength with finger correctional corporal, elbow flexion,shoulder abduction, thigh flexion, on right. Gait not tested. Intact finger-nose testing on left. Investigations: None at present. Assessment (including toxicity, grade, and attribution): Improvement in strenght in right UE and LE. Tolerating XRT well. Plan: Discharge next week to rehab. Dex taper. 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
--- OUTSIDE RECORDS SUMMARY | 2021-09-07 15:36 | XMS_ITS | Encounter Summary ---
:1945 Author Organization [facility] Address [facility] [address] [place] [address] Care Team Providers Name Role Phone Myriam Riggins MD Primary Care Provider Encounter Details Date Type Department Care Team Description 07/26/2021 Orders Only Hematology and Jessie Rubio, Non-sma ll cell lung Oncology at [facility] PHP [employer]ORD[employer] DEVELOPER cancer metastatic to [facility] [place] [address] HEMATOLOGY-ONCOLOG [phone] [place] [address] Social History Tobacco Use Types Packs/Day [...] 09/13/2021 Hospital Encounter Radiology Curtis Laura MD [facility] ER RADIATION [place], [place] [address] (Wo rk) 10/07/2021 Office Visit Neurology Wally Chow MD [facility] ER NEUROLOGY [place], [place] [address] (Wo rk) Scheduled Orders Name Type Priority Associated Diagnoses Order S chedule Lactate Dehydrogenase Lab STAT Non-small cell lung Expected: 08/09/2021 cancer metastatic to (Approx imate), brain Expires: 2021 CBC (with Diff) Lab STAT Non-small cell lung Expec supriya: 08/09/2021 cancer metastatic to (Approx imate), brain Expires: 2021 Comprehensive metabolic Lab STAT Non-small cell blayne ng Expected: 08/09/2021 panel (non-fasting) cancer metastatic to (Approximate), brain Expires: 2021 documented as of this encounter Visit Diagnoses Diagnosis Non-small cell lung cancer metastatic to brain documented in this encounter Care Teams Confidential Investigator Relationship Specialty Start Date End Date Myriam Riggins MD PCP - General Family Medicine 06/28/[address] [place] [address] documented as of this encounter
--- OUTSIDE RECORDS SUMMARY | 2021-09-07 15:36 | XMS_ITS | Encounter Summary ---
:1945 Author Organization [facility] [place] [address] Care Team Providers Name Role Phone Myriam Riggins MD Primary Care Provider Encounter Details Date Type Department Care Team Description 07/13/2021 Telephone Neurology at [facility] David Atkinson MD [facility] [place] [address] NEUROLOGY DEPT. [phone] [place], [place] [address] (Wo rk) Social History Tobacco [...] this encounter Miscellaneous Notes Telephone Encounter - David Atkinson MD - 07/13/2021 4:19 PM EDT [facility] Neurology Transfer Center Call Documentation Caller: Oriana VELAZQUEZ Hospital: [place] Reason for call: Had been having seizure Narrative: Another seizure 10-15 min x 3. In ED intact. Alert but cannot speak during these. Had no trauma. States when he has no weakness. Right leg has been weak in the past. Last Keppra dose at 1000 mg at night am. Recent surgery. Seizure breakthrough. Disposition: Recommend going up to 1500 mg Keppra BID. Needs Neurology Clinic evaluation. N.B. Since we have not evaluated this patient, this is not an official consultation and we are not stating that a specific treatment decision is correct or incorrect. documented in this encounter Plan of Treatment Upcoming Encounters Date Type Specialty Care Team Description 09/13/2021 Hospital Encounter Radiology Curtis Laura MD [facility] RADIATION ONCTRENTON [place], [place] [address] (Wo rk) 10/07/2021 Office Visit Neurology Wally Chow MD [facility] NEUROLOGY [place], [place] [address] (Wo rk) documented as of this encounter Visit Diagnoses Not on filedocumented in this encounter Care Teams Furniture And Bedding Inspector Relationship Specialty Start Date End Date Myriam Riggins MD PCP - General Family Medicine 06/28/[address] [place] [address] documented as of this encounter
--- OUTSIDE RECORDS SUMMARY | 2021-09-07 15:36 | XMS_ITS | Encounter Summary ---
:1945 Author Organization [place] [address] Care Team Providers Name Role Phone Myriam Riggins MD Primary Care Provider Encounter Details Date Type Department Care Team Description 07/13/2021 Telephone Neurosurgery at [facility] Nasrin Garcia MD [facility] [place] [address] NEUROSURGERY [phone] [place], [place] [address] (Wo rk) Social History Tobacco [...] Notes Telephone Encounter - Jessie Dominguez - 07/18/2021 1:30 PM EDT Naomi from [facility] called rescheduled appt from 08/02 to 07/26 with CB at 8:45. Telephone Encounter - Jessie Dominguez - 07/13/2021 7:46 PM EDT Images from the original note were not included. Dr. Justice, Please see note below. Since you are out this Sunday, 07/19 and Cindy is too should I have the patient f/u with someone else like Abdirahman or wait until you return on 07/26 but you are full unless I book a TOV at 8:45 please advise. Thank you Nasrin Hartley MD P [facility] Neurosurgery Painter [place], Patient has clinic visit with Dr. Justice 08/02. If we could move this a bit sooner by ~2 weeks that would be appreciated as he had some breakthrough seizures and required increased in decadron. Thanks! documented in this encounter Plan of Treatment Upcoming Encounters Date Type Specialty Care Team Description 09/13/2021 Hospital Encounter Radiology Curtis Laura MD [facility] ER RADIATION ONCTRENTON [place], [place] [address] (Wo rk) 10/07/2021 Office Visit Neurology Wally Chow MD [facility] NEUROLOGY [place], [place] [address] (Wo rk) documented as of this encounter Visit Diagnoses Not on filedocumented in this encounter Care Teams Home Service Director Relationship Specialty Start Date End Date Myriam Riggins MD PCP - General Family Medicine 06/28/[address] [place] [address] documented as of this encounter
--- OUTSIDE RECORDS SUMMARY | 2021-09-07 15:36 | XMS_ITS | Encounter Summary ---
:1945 Author Organization [facility] [place] [address] Care Team Providers Name Role Phone Myriam Riggins MD Primary Care Provider Reason for Referral Diagnostic Test (Routine) - Authorized Specialty Diagnoses / Procedures Referred By Contact Refer red To Contact Radiology Diagnoses Brain metastases Ela Wright MD [facility] Rad Mri Procedures MRI Brain wwo Contrast (Generic) [facility] [place] [address] [place] [address] Referral ID Status Reason Start Expiration Visits Visits Date Date Requested Authorized [id number] Authorized Specialty 07/12/2021 01/12/2023 1 1 Service Requested Reason for Visit Reason Comments Follow-up Encounter Details Date Type Department Care Team Description 07/12/2021 TH Visit Radiation Oncology at Tamiko Wright MD Brain metastases (TeleHealth) [address] [facility] [place] RADIATION ONCOL [place] [address] [place] [address] [phone] Social History Tobacco Use Types Packs/Day Years [...] as of this encounter Patient Instructions Patient InstructionsEla Wright MD - 07/13/2021 8:43 AM EDT Ilir Villatoro. Someone will contact you to schedule MRI brain. I have messaged Dr. Justice about staple removal prior to MRI. Ela documented in this encounter Progress Notes Ela Wright MD - 07/12/2021 3:45 PM EDT Phone encounter during Covid-19 pandemic. CC: Next step? HPI: Ilir is a 75 y/o m seen by me for inpatient consult @ 07/01/21 for likely stage IV lung ca, s/p L supratentorial craniotomy w/debulking L frontal lobe tumor & L frontoparietal lobe tumor, w/fs appearing not to be small cell ca, prelim report epithelioid neoplasm, favor met ca, final path pending. 06/30/21 postop MRI brain: Postsurg changes after rsxn L sided met lesions. Discharged to rehab unit in [place] where he remains. Subjective: He is feeling much better overall. Sensation of R upper ext back to nl. Improved sensation R lower ext but still w/some deficit in sensation below knee. Strength of R side improved & able to get around on his own. PT x 3 hrs q AM. No AZAR/N. Discharge home anticipated 06/21/21. Nicci remain. Past Medical History: Diagnosis Date ??? CAD (coronary artery disease) s/p CABG 2018 ??? High cholesterol ??? Hypertension ??? Tobacco use No lupus/scleroderma. No prior xrt. Past Surgical History: Procedure Laterality Date ??? PRO EXCIS SUPRATENT BRAIN TUMOR Left 06/30/2021 @CRANI, FOR TUMOR, SUPRATENTORIAL, NOT MENINGIOMA (WRVU 30.83) performed by Darian Justice MD at [facility] MAIN OR ??? PRO MICROSURG TECHNIQUES, REQ OPER MICROSCOPE N/A 06/30/2021 MICROSCOPE USE (WRVU 3.46) performed by Darian Justice MD at [facility] MAIN OR ??? PRO STEREOTACTIC CPTR ASSTD PX CRANIAL, INTRADURAL N/A 06/30/2021 STEREOTACTIC COMPUTER-ASSTD NAVIGATIONAL CRANIAL INTRADURAL (WRVU 3.75) performed by Darian Justice MD at [facility] MAIN OR Decision Making/Plan: Informed Ilir that I had spoken w/Rad Onc colleague who does SRS & colleague recommends repeat MRI brain 2-3 wks postop to eval for possible SRS. Ilir said his daughter can likely bring him to [facility], 06/25/21 for MRI brain. Sparks will need to be removed prior to MRI. Order for MRI. Note to Dr. Justice. Patient verbally consents to this telephone visit and understands that this visit may be billed, similar to a clinic office visit. I provided care to the patient today via telephone call. The total time associated with this visit was 20 minutes. 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 [place] [address] documented as of this encounter
--- OUTSIDE RECORDS SUMMARY | 2021-09-07 15:36 | XMS_ITS | Encounter Summary ---
:1945 [place] [address] Care Team Providers Name Role Phone Myriam Riggins MD Primary Care Provider Encounter Details Date Type Department Care Team Description 07/13/2021 Ancillary [facility] [place] [address] NEUROSURGERY [phone] [place], [place] [address] (Wo rk) Social History Tobacco [...] Curtis Laura MD [facility] ER DR IDRIS [place], [place] [address] (Wo rk) 10/07/2021 Office Visit Neurology Wally Chow MD [facility] ER NEUROLOGY [place], [place] [address] (Wo rk) documented as of this encounter Procedures Procedure Name Priority Date/Time Associated Diagnosis Comme nts FILM LIBRARY Routine 07/13/2021 5:19 PM Results f or this STORAGE ONLY CT EDT procedure ar e in HEAD the results section. documented in this encounter Results Film Library- Storage Only CT Head (07/13/2021 5:19 PM EDT) Specimen (Source) Anatomical Location Collection Method / Collectio n Time Received Time / Laterality Volume Narrative [facility] - 07/13/2021 5:19 PM EDT This exam is auto-finalizing. It's purpo se is for storage only. Darian Justice MD IMG FILM LIBRARY ORDERABLES Performing Organization Address City/State/ZIP Code Phon e Number [place], [place] documented in this encounter Visit Diagnoses Not on filedocumented in this encounter Care Teams Garbage Collector Supervisor Relationship Specialty Start Date End Date Myriam Riggins MD PCP - General Family Medicine 06/28/[address] [place] [address] documented as of this encounter
--- OUTSIDE RECORDS SUMMARY | 2021-09-07 15:36 | XMS_ITS | Encounter Summary ---
:1945 Author Organization [facility] [place] [address] Care Team Providers Name Role Phone Myriam Riggins MD Primary Care Provider Reason for Referral Consultation (Routine) - Denied Specialty Diagnoses / Procedures Referred By Contact Refer red To Contact Radiation Oncology Diagnoses Brain metastases Humza Laura MD [facility] Rad Onc Office Procedures Simulation for Radiation Therapy Planning [facility] [place] [address] [place] [address] Phone: Fax: Referral ID Status Reason Start Date Expiration Date Visits V isits Requested Authorized [id number] Denied Consult, 07/22/2021 07/22/2022 14 0 Test & Treat Encounter Details Date Type Department Care Team Description 07/22/2021 Orders Only Radiation Oncology at Humza Laura MD Brain metastases [facility] Ruchi rodriguez [place] [address] [place] [address] [phone] (Wo rk) Social History Tobacco Use Types [...] 09/13/2021 Hospital Encounter Radiology Curtis Laura MD [facility] ER RADIATION ONCOLO [place], [place] [address] (Wo rk) 10/07/2021 Office Visit Neurology Wally Chow MD [facility] ER NEUROLOGY [place], [place] [address] (Wo rk) Scheduled Orders Name Type Priority Associated Diagnoses Order S chedule Simulation for Radiation Procedures Routine Brain metastases Ordered: 07/22/2021 Therapy Planning documented as of this encounter Visit Diagnoses Diagnosis Brain metastases 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
--- OUTSIDE RECORDS SUMMARY | 2021-09-07 15:36 | XMS_ITS | Encounter Summary ---
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 Naomi Carmona [facility] Hem Onc 3k [address] [facility] [address] [place] [phone] [place] [phone] Fax: Referral ID Status Reason Start Date Expiration Date Visits V isits Requested Authorized [id number] Closed Consult, 07/21/2021 07/21/2022 1 1 Test & Treat Encounter Details Date Type Department Care Team Description 07/21/2021 Transcribe Orders eDH Incoming Referra Naomi Levin Brain tumor [phone] [phone] (Work) Social History Tobacco Use Types Packs/Day Years [...] Hospital Encounter Radiology Curtis Laura MD [facility] ER RADIATION ONCOLO [place], [place] [address] (Wo rk) 10/07/2021 Office Visit Neurology Wally Chow MD [facility] NEUROLOGY [place], [place] 0[address] (Wo rk) Scheduled Referrals Name Type Priority Associated Order Schedule Diagnoses Referral to Outpatient Referral Routine Brain tumor Ordered: Hematology and 07/21/2021 Oncology documented as of this encounter Visit Diagnoses Diagnosis Brain tumor Neoplasm of unspecified nature of brain documented in this encounter Care Teams Cold Roll Operator Relationship Specialty Start Date End Date Myriam Riggins MD PCP - General Family Medicine 06/28/[address] [place] [address] documented as of this encounter
--- OUTSIDE RECORDS SUMMARY | 2021-09-07 15:36 | XMS_ITS | Encounter Summary ---
:1945 Author Organization [facility] Address [facility] [place] [address] Care Team Providers Name Role Phone Myriam Riggins MD Primary Care Provider Reason for Visit Reason Onset Date Comments Prior Authorization 07/13/2021 Molecular cancer rosie ting C[place] 58010 is a covered benefit. Encounter Details Date Type Department Care Team Description 07/13/2021 Telephone Revenue Management Nancy Avila or Authorization Division ([facility] cancer [facility] [place] [address] covered benefit[address] ) [place] [phone] Social History Tobacco Use Types Packs/Day Years [...] this encounter Miscellaneous Notes Telephone Encounter - Nancy Avila - 07/13/2021 3:19 PM EDT Molecular cancer testing: CPT 21131 IS A COVERED BENIFIT THAT DOES NOT REQUIRE AUTHORIZATION. I received an e-mail from [employer] in [employer] ([employer]AT 07/12/2021) requesting coverage review. ??? Insurance Verified: MVP ??? Insurance Effective To/From Dates: 03/12/2021 TO CURRENT ??? Third Alliance Party Vendor: NA ??? CGAT list date: 07/12/2021 ??? Tissue Obtained On: 06/30/2021 ??? Ordered On: 07/12/2021 ??? Lab: [facility] ??? CPT/Description: OPO [employer]ICS ??? ICD-10/Description: C34.90 Malignant neoplasm of unspecified part of unspecified bronchus or lung, C79.31 Secondary malignant neoplasm of brain ??? Ordering Provider: ESTEFANIA MCMAHAN ? Call Reference Number: [id number] ??? Spoke With: MARY LOU Mai ? Financially Cleared: YES ? Notes - I will e-mail Franchesca to let her know of authorization submission. documented in this encounter Plan of Treatment Upcoming Encounters Date Type Specialty Care Team Description 09/13/2021 Hospital Encounter Radiology Curtis Laura MD [facility] RADIATION ONCOLO GY [place], [place] [address] (Wo rk) 10/07/2021 Office Visit Neurology Wally Chow MD [facility] ER NEUROLOGY [place], [place] [address] (Wo rk) documented as of this encounter Visit Diagnoses Not on filedocumented in this encounter Care Teams Plywood Layup Line Core Feeder Relationship Specialty Start Date End Date Myriam Riggins MD PCP - General Family Medicine 06/28/[address] [place] [address] documented as of this encounter
--- OUTSIDE RECORDS SUMMARY | 2021-09-07 15:36 | XMS_ITS | Encounter Summary ---
:1945 Author Organization [facility] [place] [address] Care Team Providers Name Role Phone Myriam Riggins MD Primary Care Provider Reason for Visit Auth/Cert Specialty Diagnoses / Procedures Referred By Contact Refer red To Contact Diagnoses Right sided weakness Procedures EMERGENCY OBSVO TO IPI Referral ID Status Reason Start Date Expiration Date Visits Requ ested Visits Authorized [id number] 1 1 Encounter Details Date Type Department Care Team Description 07/22/2021 Ancillary Appointment Radiation Oncology at Humza Laura [facility] [place] [address] RADIATION ONCOLOGY [phone] [place], [place] [address] Social History Tobacco Use Types [...] encounter Progress Notes Humza Laura MD - 07/22/2021 2:30 PM EDT Identification: Ilir Laird is a 75 y.o. with a Stage IV lung cancer (neuroendocrine features) withmultiple brain metastases. Today the patient underwent CT-based simulation in preparation for radiation therapy planning and treatment.. Without administration of IV contrast, the patient underwent CT-based simulation scanning with acquired images covering cranial contents. Immobilization was accomplished using face mask. Following acquisition of the images, these were reviewed, determined adequate for radiation treatment planning, and pushed to dosimetry for off-line treatment planning. The patient was discharged in good condition. documented in this encounter Plan of Treatment Upcoming Encounters Date Type Specialty Care Team Description 09/13/2021 Hospital Encounter Radiology Curtis Laura MD [facility] RADIATION ONCTRENTON [place], [place] [address] (Wo rk) 10/07/2021 Office Visit Neurology Wally Chow MD [facility] NEUROLOGY [place], [place] [address] (Wo rk) Scheduled Orders Name Type Priority Associated Diagnoses Order S chedule Simulation for Radiation Procedures Routine Brain metastases Ordered: 07/22/2021 Therapy Planning documented as of this encounter Visit Diagnoses Not on filedocumented in this encounter Care Teams Manager Forms Relationship Specialty Start Date End Date Myriam Riggins MD PCP - General Family Medicine 06/28/[address] [place] [address] [address] [place] [address] documented as of this encounter
--- OUTSIDE RECORDS SUMMARY | 2021-09-07 15:36 | XMS_ITS | Encounter Summary ---
:1945 Author Organization [facility] [place] [address] Care Team Providers Name Role Phone Myriam Riggins MD Primary Care Provider Reason for Visit Auth/Cert Specialty Diagnoses / Procedures Referred By Contact Refer red To Contact Diagnoses Right sided weakness Procedures EMERGENCY OBSVO TO IPI Referral ID Status Reason Start Date Expiration Date Visits Requ ested Visits Authorized [id number] 1 1 Encounter Details Date Type Department Care Team Description 07/27/2021 Office Visit Radiation Oncology at Humza Laura MD Brain metastases [facility] [place] [address] [address] RADIATION ONCOLOGY [phone] [place], [place] [address] (Wo rk) Social History Tobacco [...] encounter Progress Notes Humza Laura MD - 07/27/2021 2:45 PM EDT ON TREATMENT VISIT NOTE Identification: Mr. Laird is undergoing treatment with radiation therapy at [facility] for large cell neuroendocrine carcinoma, lung primary, with multiple brain metastases. Current treatment dose: 12.5 Gy in 5 fractions Anticipated total dose: 35.0 Gy in 14 fractions Evaluation of Port Verification Films: OK. For details, see electronic film record in [employer]. Changes in medical condition: Some improvement in strength in both UE and LE. Otherwise stable. Pain management: None at present Physical examination* [...] the upper and lower extremities on left. Improved strength with finger public housing manager, elbow flexion,shoulder abduction, on right. Gait not tested. Intact finger-nose testing on left. Investigations: None at present. Assessment (including toxicity, grade, and attribution): Improvement in strenght in right UE and LE. Tolerating XRT well. Plan: Ask team to begin memantine dose escaclation. 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
--- OUTSIDE RECORDS SUMMARY | 2021-09-07 15:36 | XMS_ITS | Encounter Summary ---
:1945 Author Organization [facility] [place] [address] Care Team Providers Name Role Phone Myriam Riggins MD Primary Care Provider Encounter Details Date Type Department Care Team Description 07/13/2021 Telephone Neurosurgery at [facility] Nasrin Garcia [place] [address] NEUROSURGERY [phone] [place], [place] [address] (Wo rk) Social History Tobacco [...] this encounter Miscellaneous Notes Telephone Encounter - Nasrin Garcia MD - 07/13/2021 6:13 PM EDT NEUROSURGERY TELEPHONE NOTE - Consultation Patient Name: Ilir Laird Patient Age: 75 y.o. : 1945 Date: 07/13/2021 Outside Facility: [facility] Patient status, level of care: ED Calling Provider: MARCUS Clayton Please note: The information in this note was directly obtained via the calling provider. Received a call from the [facility] on 07/13/2021 concerning Ilir Laird, a 75 y.o. male with concerns for breakthrough seizures. Patient with PMH tobacco use, CAD s/p CABG, s/p Left frontal/parietal craniotomies for tumor resections (FS = NSCLC) with Dr. Justice 06/30/21. He was discharged to [facility] 07/08 and since has been feeling well with no further seizures until earlier today at which timehe experienced three episodes in succession of RUE and RLE spasm/shaking and aphasia but retained consciousness. He was discharged on Decadron taper to complete today. On presentation at OSH, he is back to his baseline, completely asymptomatic. Stable vitals and labs per report. Neurology consulted through [facility] as well, recommended increase in Keppra and follow up in clinic. We recommended CTH to evaluate for any changes or increased edema. CTH reviewed and compared with most recent image, postop MRI. Appears to have mildly increased edema which may be result of Decadron tapering off. Recommend increasing Decadron to 4mg q6h until follow up with NSGY. There is a risk of in fection postoperatively of course, however patient is asymptomatic with no infectious symptoms and stable vitals/labs. Should he develop any systemic signs/symptoms in next couple of days, would consider reimaging with MRI. For now will plan on moving up his scheduled follow up in NSGY clinic. Clinic will call to reschedule. ?? Thank you for the opportunity to participate in the care of this patient. Discussed with attending neurosurgeon, Darian Justice MD. Nasrin Garcia MD 07/13/2021 NSGY pager: [phone] documented in this encounter Plan of Treatment Upcoming Encounters Date Type Specialty Care Team Description 09/13/2021 Hospital Encounter Radiology Curtis Laura MD [facility] ER [address] [place], [place] [address] (Wo rk) 10/07/2021 Office Visit Neurology Wally Chow MD [facility] NEUROLOGY [place], [place] [address] (Wo rk) documented as of this encounter Visit Diagnoses Not on filedocumented in this encounter Care Teams Smt Technician Relationship Specialty Start Date End Date Myriam Riggins MD PCP - General Family Medicine 06/28/21 [facility] [address] [place] [address] documented as of this encounter
--- OUTSIDE RECORDS SUMMARY | 2021-09-07 15:36 | XMS_ITS | Encounter Summary ---
:1945 Author Organization [facility] [place] [address] Care Team Providers Name Role Phone yMriam Riggins MD Primary Care Provider Reason for Visit Diagnostic Test (Routine) - Authorized Specialty Diagnoses / Procedures Referred By Contact Refer red To Contact Radiology Diagnoses Brain metastases Ela Wright MD [facility] Rad Mri Procedures MRI Brain wwo Stereotactic Planning [facility] [place] [address] [place] [address] Referral ID Status Reason Start Expiration Visits Visits Date Date Requested Authorized [id number] Authorized Specialty 07/19/2021 01/19/2023 1 1 Service Requested Encounter Details Date Type Department Care Team Description 07/21/2021 Hospital Encounter MRI at [facility] Ela Wright, Canceled (P-PATIENT [facility] ADMITTED/DELIVERED) [facility] [place] [address] RADIATION [phone] [place] [address] Social History Tobacco Use Types Packs/Day Years [...] on file documented as of this encounter Medications at Time of Discharge [...] mg calcium (500 mg) mouth 2 times Tablet, Chewable daily. divalproex EC (Depakote) Take 1 tablet by 90 tablet 3 08/12 500 mg Tablet, Delayed mouth 2 times Release (E.C.) daily. levETIRAcetam (KEPPRA) Take 1.5 tablets by 0 05/2021 1,000 mg Tablet mouth 2 times daily. dexamethasone (DECADRON) Take 1 tablet by 0 08/12 2 mg Tablet mouth every 8 hours. [...] Tablet mouth 2 times daily. pantoprazole EC Take 1 tablet by 90 tablet 3 07/09/2021 (Protonix) 40 mg Tablet, mouth daily. Delayed Release (E.C.) sodium chloride 1 gram Take 1 tablet by 0 022 Tablet mouth 3 times daily. atorvastatin (Lipitor) 80 Take 80 mg by mouth 0 0 05/20/2021 mg Tablet every evening. dexamethasone (Decadron) Take 4 mg by mouth 0 08/12/2021 4 mg Tablet every 6 hours. Picked up 07/20 levETIRAcetam (KEPPRA) Take 1 tablet by 60 tablet 12 022 08/12/2021 1,000 mg Tablet mouth 2 times daily. documented as of this encounter Plan of Treatment Upcoming Encounters Date Type Specialty Care Team Description 09/13/2021 Hospital Encounter Radiology Curtis Laura MD [facility] ER RADIATION [address] [place], [place] [address] (Wo rk) 10/07/2021 Office Visit Neurology Wally Chow MD [facility] ER NEUROLOGY ONLY, [place] [address] (Wo rk) documented as of this encounter Visit Diagnoses Not on filedocumented in this encounter Care Teams Polish Compounder Relationship Specialty Start Date End Date Myriam Riggins MD PCP - General Family Medicine 06/28/[address] [place] [address] documented as of this encounter
--- OUTSIDE RECORDS SUMMARY | 2021-09-07 15:37 | XMS_ITS | Encounter Summary ---
:1945 [place] [address] Care Team Providers Name Role Phone Myriam Riggins MD Primary Care Provider Reason for Visit Auth/Cert Specialty Diagnoses / Procedures Referred By Contact Refer red To Contact Diagnoses Brain lesion Procedures emerg ipi Referral ID Status Reason Start Date Expiration Date Visits Requ ested Visits Authorized [id number] 1 1 Encounter Details Date Type Department Care Team Description 06/30/2021 Anesthesia Event Main Operating Room Farrah Henderson MD [facility] [place] [address] [facility] Ji Tinoco CRNA [facility] [place] [address] [facility] [place] [address] Anesthesia Record Procedure Summary Procedure Name Responsible Anesthesia Start Anesthesia Stop Anesthesiologist Time Time @CRANI, FOR TUMOR, Farrah Trammell MD 06/30/21 1146 1422 SUPRATENTORIAL, NOT MENINGIOMA (WRVU 30.83) (Left Brain) Events Date Time Event Comment 06/30/2021 1146 AN Verify 1146 Start 1147 1151 An Start Data 1202 An Induction 1204 An Intubation 1214 Anesthesia Ready 1237 Procedure Start 1311 Break/Relief In I assumed care f or Break Relief before which we: 1. Identifie d the patient 2. Identified the responsible provider(s) 3. Reviewed the pertinent medica l history 4. Discussed the surgical plan an d course 5. Reviewed intra-op anesthesia manag ement and issues during anesthesia 6. Se t expectations for the relief (and/or post-pro cedure) period 7. Allowed opportunity for questions and acknowledgement of understanding LAURA MAYO MD 1332 Break/Relief Out 1359 Procedure Stop 1403 Extubation/LMA Out 1411 an stop data 1414 Recovery or ICU Handoff Patient care was transferred to the destination unit staff after review of the patient's medica l history, current anesthetic/surgi madelin status and plan, according to the Provider Handoff Checklist. 1422 Stop Name Total IV Lidocaine 80 mg Propofol 300 mg Rocuronium 100 mg ePHEDrine 15 mg Ondansetron 8 mg Glycopyrrolate 0.2 mg REMIfentanil INF 0.58 mg ceFAZolin 2 g Dexmedetomidine INF 36.47 mcg Propofol INF 52.38 mg Sugammadex 200 mg Lactated Ringers 900 mL Lactated Ringers 100 mL Agents Name O2 Air N2O Sevoflurane (et) Blood No blood administrations on file. Lines, Drains, and Airways Type Details Placement Removal PIV 06/28/21; 1925; basilic 06/28/21 1926 by 2 1447 by vein (medial side of Misti Parra, RN Ana Denis, arm), right; RN [id number] catheter system; 18 gauge; Darren Parra RN; removed inadvertently, catheter/device intact; 07/01/21; 1447 ETT Mask Ventilation: Adjunct 06/30/21 1204 by 06/30 1403 by (2); ETT Type: Cuffed, Lane Curry MD Breen, Lucas D, MD Oral; ETT Size: 7 mm; Indirect:Video (d blade); Notes: Asleep, Pre-O2, Stylette; Attempts: 1; Laryngoscopy Grade: 1; ETT Placement Verified By: Capnometry, Visual; Secured at Teeth: 22 cm; Inserted by: Patricio ARTHUR Arterial Line 06/30/21; 1212; radial 06/30/21 1212 by 07/01/21 0250 by artery, right; 20 gauge; Lane Curry MD Moor e, Stephanie D, continuous blood pressure RN monitoring, frequent blood gas measurement; Patricio ARTHUR; Sterile Prep, Sterile Gloves; no longer indicated; 07/01/21; 0250 PIV 06/30/21; 1214; cephalic 06/30/21 1214 by 1013 by vein (lateral side of Lane Curry, MD Mcdonald n, Nasrin L arm), left; [id number]-[id number] catheter system; 18 gauge; Valeri ; 07/08/21; 1013 Urethral Catheter 06/30/21; 1215; Surgery 06/30/21 1215 by 06/30 1930 by longer than 2 hours; Jacoby Petersen Step hanie D, Immobility without Shireen, RN RN alternative; indwelling catheter with core temperature probe; 100% silicone; 14; inserted at this facility; 1; 5; 10; other (see comments) (gel in kit); electronic urine monitoring unit to dependent drainage; LDA not present upon assessment; 06/30/21; 1930 Incision 06/30/21; 1235; upper; 06/30/21 1235 by 07/30/21 1145 by head; 2 incisions; Sophie Petersen, Me wilmer Trinh, 07/30/21; 1145 Shireen, RN RN documented in this encounter Social History Tobacco Use Types Packs/Day Years [...] on file documented as of this encounter OR Notes Anesthesia Postprocedure Evaluation - Lane Curry MD - 06/30/2021 2:30 PM EDT Department of Anesthesiology Post-procedure Note Patient: Ilir Laird Procedure Summary Date: 06/30/21 Room / Location: [facility] OR [facility] MAIN OR Anesthesia Start: 1146 Anesthesia Stop: 142 Procedures: @CRANI, FOR TUMOR, SUPRATENTORIAL, NOT MENINGIOMA (WRVU 30.83) (Left Brain) STEREOTACTIC COMPUTER-ASSTD NAVIGATIONAL CRANIAL INTRADURAL (WRVU 3.75) (N/A Brain) MICROSCOPE USE (WRVU 3.46) (N/A Brain) MODIFIER,STEALTH 3 W/O KINEVO,CRANI/SPINE ONLY (N/A Brain) Diagnosis: (brain mets) Surgeons: Darian Justice MD Responsible Provider: Farrah Trammell MD Anesthesia Type: general ASA Status: 3 All Anesthesia Providers: Anesthesiologist: Farrah Trammell MD Church Worker: Lane Curry MD Vitals Value Taken Time BP Temp Pulse Resp SpO2 Pain Level Patient Location: ICU Level of Consciousness: Awake and Alert Pain Management: Pain Being Addressed PONV: None Cardiovascular Status: At Baseline Respiratory Status: Stable Respiratory Status and Supplemental O2 (NC or FM) Postoperative Fluid Status: Intravascular EUvolemia Possible Anesthetic Complications: NONE apparent at time of evaluation Final Primary Anesthesia Type: General (The anesthetic type performed was the same as planned.) Comments: No apparent anesthetic complications. Tolerated procedure well. Complaint of headache otherwise doing well. Lane Curry MD Anesthesia Preprocedure Evaluation - Kwadwo Weston MD - 06/30/2021 11:22 AM EDT Pre-Anesthesia Evaluation for: Ilir Laird a 75 y.o. male. Procedure(s): @CRANI, FOR TUMOR, SUPRATENTORIAL, NOT MENINGIOMA (WRVU 30.83) STEREOTACTIC COMPUTER-ASSTD NAVIGATIONAL CRANIAL INTRADURAL (WRVU 3.75) MICROSCOPE USE (WRVU 3.46) MODIFIER,STEALTH 3 W/O KINEVO,CRANI/SPINE ONLY Patient Active Problem List Diagnosis Date Noted ??? Lung Cancer, metastatic stage IV, type not identified 06/29/2021 ??? Cigarette nicotine dependence with withdrawal 06/29/2021 ??? CAD (coronary artery disease), HLD 06/29/2021 ??? 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 No pertinent past medical history. History reviewed. No pertinent surgical history. Social History Tobacco Use ??? Smoking status: Former Smoker Packs/day: 1.00 Years: 30.00 Pack years: 30.00 ??? Smokeless tobacco: Former User Quit date: 06/24/2021 ??? Tobacco comment: Quit 5 days ago Substance Use Topics ??? Alcohol use: Yes Alcohol/week: 3.0 standard drinks Types: 3 Cans of beer per week Comment: Not recently Social History Substance and Sexual Activity Drug Use Never Allergies Allergen Reactions ??? Cis Free Text Allergy Environmental. CIS - Allergic Rhinitis Medications: MAR and/or home medications have been reviewed. Physical Exam: Preprocedure Vitals Current as of 06/30/21 1122 BP: 125/74 Pulse: 55 Resp: 15 SpO2: 91 Temp: Height: 177.8 cm (5' 10) (06/29/21) Weight: 77.6 kg (171 lb 1.2 oz) (06/29/21) BMI: 24.54 IBW: 73 kg (160 lb 15 oz) Last edited 06/30/21 0800 by KAYLEEN Airway Assessment: Mallampati: III TM distance: >3 FB Neck ROM: limited Cardiovascular Assessment: Rhythm: regular Rate: normal Pulmonary Assessment: breath sounds clear to auscultation Dental Assessment: Misc Assessment: Last Filed Perioperative Cognitive Screening Value Time User 4AT TOTAL Score: 0 06/28/2021 7:25 PM Misti Parra RN MiniCOG Total Score: 5 06/28/2021 7:25 PM Misti Parra RN Anesthesia Plan: ASA 3 general, with a(n) intravenous induction Preliminary note Ilir Laird is a 75 y.o. male with multiple bilateral intracranial lesions, the largest of which isin the left frontal lobe with surrounding vasogenic edema, presenting for crani and excision. Patient presented with R sided weakness. Suspected mets of right hilar lung mass. PMH significant for active smoker with 30 PY, CAD s/p 4v CABG 2019, HLD. Anesthetic history: no records available. Plan: GA with ETT, standard monitors, adequate IV access, A-line. Region - Intracranial (non-vascular) Informed Consent: Anesthetic plan and risks discussed with patient. Plan discussed with resident and attending. Anesthesia Screening documented in this encounter Plan of Treatment Upcoming Encounters Date Type Specialty Care Team Description 09/13/2021 Hospital Encounter Radiology Curtis Laura MD [facility] RADIATION [place], [place] [address] (Wo rk) 10/07/2021 Office Visit Neurology Wally Chow MD [facility] NEUROLOGY [place], [place] [address] (Wo rk) documented as of this encounter Visit Diagnoses Not on filedocumented in this encounter Administered Medications Inactive Administered Medications - up to 3 most recent administrations Medication Order MAR Action Action Date Dose Rate Site ceFAZolin (Ancef) 1 g in dextrose Given 06/30/2021 12:24 PM EDT 2 g 5% 50 mL infusion Intravenous, PRN, Starting on Helen 06/30/21 at 1224, Until Helen 06/30/21 at 1430, Administer over 30 Minutes, Anesthesia Intra-op dexmedetomidine (Precedex) (4 New Bag 06/30/2021 12:07 PM 0.3 mcg/kg/hr 5.82 mL/hr mcg/mL) in sodium chloride 0.9% EDT 50 mL infusion Intravenous, CONTINUOUS PRN, Starting on Helen 06/30/21 at 1207, Until Helen 06/30/21 at 1430, Anesthesia Intra-op ePHEDrine sulfate (5 mg/mL) multi-dose Given 06/30/2021 1:19 PM EDT 5 mg injection Intravenous, PRN, Starting on Helen 06/30/21 at 1242, Until Helen 06/30/21 at 1430, Anesthesia Intra-op, Routine Given 06/30/2021 1:10 PM EDT 5 mg Given 06/30/2021 12:42 PM EDT 5 mg glycopyrrolate (Robinul) (0.2 mg/mL) Given 06/30/2021 12:43 PM E DT 0.2 mg multi-dose injection Intravenous, PRN, Starting on Helen 06/30/21 at 1243, Until Helen 06/30/21 at 1430, Anesthesia Intra-op, Routine lactated ringers infusion New Bag 06/30/2021 11:47 AM EDT Intravenous, CONTINUOUS PRN, Starting on Helen 06/30/21 at 1147, Until Helen 06/30/21 at 1430, Anesthesia Intra-op lactated ringers infusion New Bag 06/30/2021 12:13 PM EDT Intravenous, CONTINUOUS PRN, Starting on Helen 06/30/21 at 1213, Until Helen 06/30/21 at 1430, Anesthesia Intra-op lidocaine (pf) (Xylocaine) (20 mg/mL) 2% Given 06/30/2021 12:02 PM EDT 80 mg injection syringe Intravenous, PRN, Starting on Helen 06/30/21 at 1202, Until Helen 06/30/21 at 1430, Anesthesia Intra-op, Routine ondansetron (pf) (Zofran) (2 mg/mL) inje ction Given 06/30/2021 1:40 PM EDT 8 mg Intravenous, PRN, Starting on Helen 06/30/21 at 1340, Until Helen 06/30/21 at 1430, Anesthesia Intra-op, Routine propofoL (Diprivan) (10 mg/mL) New Bag 06/30/2021 1:44 PM 75 m cg/kg/min 34.92 mL/hr infusion EDT Intravenous, CONTINUOUS PRN, Starting on Helen 06/30/21 at 1344, Until Helen 06/30/21 at 1430, Anesthesia Intra-op, Routine propofoL (Diprivan) 10 mg/mL bolus injection Given 12:04 PM EDT 100 mg (Anesthesia) Intravenous, PRN, Starting on Helen 06/30/21 at 1202, Until Helen 06/30/21 at 1430, Anesthesia Intra-op Given 06/30/2021 12:02 PM EDT 200 mg remifentaniL (Ultiva) (0.02 Rate/Dose 06/30/2021 0.075 17.46 mg/mL) infusion (Anesthesia) Change 12:42 PM EDT mcg/kg/min mL/hr Intravenous, CONTINUOUS PRN, Starting on Helen 06/30/21 at 1237, Until Helen 06/30/21 at 1430, Anesthesia Intra-op New Bag 06/30/2021 12:37 PM EDT 0.1 mcg/kg/min 23.28 mL/hr New Bag 06/30/2021 12:05 PM EDT 0.05 mcg/kg/min 11.64 mL/hr rocuronium (Zemuron) (10 mg/mL) multi-dose Given 06/30/2021 12:3 7 PM EDT 20 mg injection Intravenous, PRN, Starting on Helen 06/30/21 at 1202, Until Helen 06/30/21 at 1430, Anesthesia Intra-op, Routine Given 06/30/2021 12:09 PM EDT 30 mg Given 06/30/2021 12:02 PM EDT 50 mg sugammadex (Bridion) 100 mg/mL injection Given 06/30/2021 1:56 PM EDT 200 mg Intravenous, PRN, Starting on Helen 06/30/21 at 1356, Until Helen 06/30/21 at 1430, Anesthesia Intra-op, Routine documented in this encounter Care Teams Bench Worker Helper Relationship Specialty Start Date End Date Myriam Riggins MD PCP - General Family Medicine 06/28/[address] [place] [address] documented as of this encounter
--- OUTSIDE RECORDS SUMMARY | 2021-09-07 15:37 | XMS_ITS | Encounter Summary ---
:1945 Author Organization [facility] [place] [address] Care Team Providers Name Role Phone Myriam Riggins MD Primary Care Provider Encounter Details Date Type Department Care Team Description 06/24/2021 Ancillary Procedure [place] [address] Social History Tobacco Use Types Packs/Day Years Used Date Never Assessed Sex Assigned at Date Recorded Not on file documented as of this encounter Plan of Treatment Upcoming Encounters Date Type Specialty Care Team Description 09/13/2021 Hospital Encounter Radiology Curtis Laura MD [facility] RADIATION [address] [place], [place] [address] (Wo rk) 10/07/2021 Office Visit Neurology Wally Chow MD [facility] NEUROLOGY [place], [place] [address] (Wo rk) documented as of this encounter Procedures Procedure Name Priority Date/Time Associated Diagnosis Comme nts FILM LIBRARY STAT 06/24/2021 12:00 AM Results for this STORAGE ONLY MR EDT procedure ar e in SPINE the results section. documented in this encounter Results Film Library- Storage Only MR Spine (06/24/2021 12:00 AM EDT) Specimen (Source) Anatomical Location Collection Method / Collectio n Time Received Time / Laterality Volume Narrative Dicom, Auditing User - 06/28/2021 6:10 P M EDT This exam is auto-finalizing. It's purpo se is for storage only. Myriam Riggins MD IMG FILM LIBRARY ORDERABLES documented in this encounter Visit Diagnoses Not on filedocumented in this encounter Care Teams Director Loan Relationship Specialty Start Date End Date Myriam Riggins MD PCP - General 02/01/10 06/27/21 [address] [place] [address] documented as of this encounter
--- OUTSIDE RECORDS SUMMARY | 2021-09-07 15:37 | XMS_ITS | Encounter Summary ---
:1945 Author Organization [facility] [address] Care Team Providers Name Role Phone Myriam Riggins MD Primary Care Provider Reason for Visit Reason Onset Date Comments Other 06/29/2021 Lung biopsy Encounter Details Date Type Department Care Team Description 06/29/2021 Telephone Pulmonology at [facility] Ester Clayton, Other (Lung biopsy) [facility] [place] [address] Social History Tobacco Use Types Packs/Day [...] this encounter Miscellaneous Notes Telephone Encounter - Ester Clayton RN - 06/29/2021 8:59 AM EDT I have received a message from our nuclear [employer] construction worker, want to know about a biopsy on this pt. pls call. I have called back Mary Lemus MD at [phone]. She tells me that pt has a possible lung Ca with hilar mass and is looking to arrange bronch with biopsy on this pt. I have told Dr. Lemus that I am not sure how the referral works for inpatient. Usually for outpt they will need to send a referral to our IP team and when our nuclear [employer] construction worker Maria Ines Barth receives the referral, it will be reviewed by our IP providers and pt will then be set up for an appt for bronch. I have recommended Dr. Lemus reach out to the inpatient Pulm consult team to discuss the need for bronch. score caller for Pleural disease is Nadege Ervin APRN, which Dr. Lemus said she will reach out to. KELI Garcia, RN Department of Pulmonary 5C, [facility] Pager: [phone] documented in this encounter Plan of Treatment Upcoming Encounters Date Type Specialty Care Team Description 09/13/2021 Hospital Encounter Radiology Curtis Laura MD [facility] [place], [place] [address] (Wo rk) 10/07/2021 Office Visit Neurology Wally Chow MD [facility] [place], [place] [address] (Wo rk) documented as of this encounter Visit Diagnoses Not on filedocumented in this encounter Care Teams Permit Agent Relationship Specialty Start Date End Date Myriam Riggins MD PCP - General Family Medicine 06/28/[address] [place] [address] documented as of this encounter
--- OUTSIDE RECORDS SUMMARY | 2021-09-07 15:37 | XMS_ITS | Encounter Summary ---
:1945 Author Organization [facility] [place] [address] Care Team Providers Name Role Phone Myriam Riggins MD Primary Care Provider Reason for Visit Reason Comments Brain Tumor Auth/Cert Specialty Diagnoses / Procedures Referred By Contact Refer red To Contact Diagnoses Brain lesion Procedures emerg ipi Referral ID Status Reason Start Date Expiration Date Visits Requ ested Visits Authorized [id number] 1 1 Encounter Details Date Type Department Care Team Description 06/30/2021 Surgery Main Operating Room Estefania Justice, @Helen OWENS FOR TUMOR, Evelia Del Real MD SUPRATENTORIAL, [facility] MENINGIOMA (WRVU 30.83) [facility] [address] [place] [address] [place] [id number] [phone] (Wo rk) Social History Tobacco Use Types [...] Sign Reading Time Taken Comments Blood Pressure 126/73 06/30/2021 2:45 PM EDT Pulse 64 06/30/2021 3:00 PM EDT Temperature 35.7 ??C (96.3 ??F) 06/30/2021 2:43 PM EDT Respiratory Rate 13 06/30/2021 3:00 PM EDT Oxygen Saturation 92% 06/30/2021 3:00 PM EDT Inhaled Oxygen Concentration - - Weight 77.6 kg (171 lb 1.2 oz) 06/29/2021 12:27 AM EDT Height 177.8 cm (5' 10) 06/29/2021 12:27 AM EDT Body Mass Index 23.98 07/04/2021 5:49 AM EDT documented in this encounter Discharge Summaries Benita Leblanc MD - 07/08/2021 9:18 AM EDT [facility] Discharge Summary Patient Name: Betsy Laird Patient Age: 75 y.o. Birthdate: 1945 Admit date: 06/28/2021 Discharge date and time: 07/08/2021 9:48 AM PCP: Myriam Riggins MD Code Status: Full Code PATIENT ID Betsy Laird is a 75 y.o. male with pmh significant for CAD s/p CABG, hx of tobacco use who presented with new neurological deficits. CC: Chief Complaint Patient presents with ??? Brain Tumor Follow-up Recommendations for Providers: PCP Specific: #Post operative hyponatremia with Na 130-134, stable, asymptomatic. Urine studies consistent with SIADH. Discharged on PO NaCl tabs TID per Neurosurgery. Please monitor Na and taper NaCl tabs as able over several weeks. #Will have follow up with Neurosurgery, Neurology, Oncology, Radiation Oncology, and Palliative Care. Other: #Du Med Changes: - Dexamethasone taper through 07/13. - Pantoprazole daily while on steroids. - Keppra 1000 mg BID for seizure ppx. - NaCl 1g TID, taper over 2 weeks. - HOLD ASA until 2 weeks post op (okay to resume on 07/14) #Monitoring: - Maintain SBP < 160 #Lab checks - BMP to monitor Na #Pending test results at time of DC: - Final pathology tissue diagnosis Discharge Diagnoses (Hospital Problems) and Secondary Diagnoses (Chronic Problems): Active Hospital Problems Diagnosis ??? 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 Hyponatremia ??? Hyperglycemia ??? Non-small cell carcinoma of lung ??? Cigarette nicotine dependence with withdrawal ??? CAD (coronary artery disease), HLD Resolved Hospital Problems No resolved problems to display. There are no active non-hospital problems to display for this patient. History of Present Illness: As per admitting provider: Betsy Laird is a 75 y.o. male who presents with progressive R sided weakness and R foot drop w/ imaging c/f metastatic cancer of brain requiring admission for expedited w/u and eval by rehabilitationgiven decrease in functional status. Patient has a pertinent medical history to include CAD s/p 4vCABG ~2019 @ [facility], tobacco use disorder in recent remission 5 days ago (58 pk/yr history) ?? 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 He has 2 daughters, 1 who lives close to him and in the setting of progressive weakness she got him a walker to help him get around around a week ago. A few days ago he started having right upper extremity weakness and was seen by an outpatient neurologist who ordered an MRI of his lumbar spine which showed multilevel degenerative disease. He presented to [facility] yesterday where he underwent an MRI brain and C-spine that showed multiple intracranial lesions concerning for metastasis. He then presented to [facility] ED this afternoon. Associated symptoms include intermittent headaches over the last few weeks which she has been taking as needed ibuprofen to good effect. Mild productive cough that started yesterday. He has been swallowing the sputum so he cannot further characterize it. Denies nausea, vomiting, numbness, weakness, paresthesias, LOC/falls, bowel or bladder symptoms. ?? He lives independently but has family support in his local daughter. Retired 3 years ago, worked [employer] in many roles over the years before retiring. Drinks 2 beers/night, last drink was before symptoms started. Denies illicit drug use. Quit tobacco use after he felt like I didn'twant to anymore, 5 days ago. 58 pk year history, started at age 17. Takes his medications as prescribed, not missing doses. Was seen by PCP last August, underwent screening CT lung for lung Ca. Was toldhe has several nodules, but on serial imaging they were deemed low risk and he was due for annual f/u this coming August. Last colonoscopy was 20+ years ago in his 50's. Was told it was normal so never un derwent repeat. Saw a lay up operator last 3 years ago but was stable s/p CABG so did not return and PCP has taken over cardiac care. [facility] ED: V/S: Afebrile, heart rate 70s, mildly hypertensive 154/86, normal RR, SpO2 91- 96% ORA ?? Pertinent w/u: CBC: Mild leukocytosis 10.7, Hgb 14.3, mild thrombocytosis at 376 BMP: WNL Coags: WNL Head CT: Multiple large hyperdense masses within superior left frontal lobe with extensive surrounding edema as well as small hypodense masses in superior right frontal lobe most C/W metastasis. CXR 2 view: Abnormal right hilum concerning for adenopathy versus mass consider chest CT for furthercharacterization ?? Neurosurgery evaluated patient and recommended IV steroids for vasogenic edema secondary to metastasis. Recommended admission to medicine and CT CAP for further work-up. ?? Medicine called to admit. ?? After initial eval paged by RN for new RLE and RUE seizure like activity. Resolved by time I was able to re-eval. Pt stated this has been happening every night for past week. He denies ever loosing consciousness, bowel/bladder incontinence, tongue biting. Exam on reeval was sig for 0/5 strength in entire RUE (1/5 in fingers) and 3/5 in entire RLE (aside from R foot dorsiflexion 0/5). Brief Hospital Course: Betsy Laird is a 75 y.o. male with pmh significant for CAD s/p CABG, hx of tobacco use who presented with new neurological deficits and has been found to have likely primary lung with brain mets with vasogenic edema. He had a craniotomy performed on 06/30 by Neurosurgery and prelim biopsy report showsthat the patient has NSCLC. Neurosurgery recommending whole brain radiation. Onc, Rad Onc, and Palliative Care have been consulted with plan for outpatient follow up to discuss treatment options. Hospital Course by Problem List: Non-small cell carcinoma of lung He has evidence of a right hilar mass on CT scan that could be suggestive of primary lung malignancy. Evidence of metastasis to the brain; biopsy obtained during craniotomy. Preliminary path results show NSCLC. 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 MRI showing multiple bilateral intracranial lesions; largest lesion is in the left frontal lobe with surrounding vasogenic edema. Imaging is most consistent with metastasis and patient has concurrent hilar mass which is the likely primary malignancy. Neurosurgery has been consulted and performed debulking procedure/craniotomy on 06/30, prelimbiopsy on frozen section was NSCLC. Have consulted oncology, radiation oncology, and palliative care who have all evaluated patient and plan for outpatient follow up once definitive diagnosis is established to discuss treatment options. He will also need outpatient neurology follow up for seizure. Continues to have gradual improvement in R sided weakness. PT/OT recommended acute rehab on discharge. PLAN -Appreciate Neurosurgery/Onc/Rad Onc/Palliative Care consults -Maintain SBP < 160 -SQH ok per neurosurgery -Resume home ASA 2 weeks post op (07/14) -Decadron taper per Neurosurgery recommendations, starting 07/02: 4mg BIDx3d, 2mg BIDx3d, 1mg BIDx3d,1mg QDx3d, stop -GI ppx while on steroids -Continue keppra 1000 mg BID -Q shift neuro checks -Target eunatremia post craniotomy -PT/OT, recommend acute rehab -F/u with Neurosurgery on 08/02/21 -Will also have f/u with Onc, Rad Onc, Palliative Care, and Neurology Cigarette nicotine dependence with withdrawal Patient has chronic nicotine dependence, quit smoking several days prior to admission. PLAN -Recommend cessation and abstinence -Nicotine patch CAD (coronary artery disease), HLD CAD s/p CABG in 2019. No acute issues. PLAN -Hold ASA per neurosurgery; okay to resume 2 weeks post op (07/14) -Continue Atorvastatin and BB Hyperglycemia In setting of dexamethasone administration. RESOLVED Hyponatremia Post operative hyponatremia. Urine studies c/w SIADH. Remains asymptomatic. PLAN -Target eunatremia post craniotomy per NSGY -Fluid restrict 1500 mL -Continue NaCl tabs 1g TID, taper over 1-2 weeks -Trend BMP Physical Exam: BP 138/75 (BP Location (NBP): Right arm, Patient Position: Lying) Pulse 50 Temp 36.7 ??C (98.1 ??F) (Oral) Resp 16 Ht 177.8 cm (5' 10) Wt 75.8 kg (167 lb 1.7 oz) SpO2 94% BMI 23.98 kg/m?? Intake/Output Summary (Last 24 hours) at 07/08/2021 0948 Last data filed at 07/08/2021 0826 Gross per 24 hour Intake 870 ml Output 300 ml Net 570 ml Physical Exam Vitals and nursing note reviewed. Constitutional: General: He is not in acute distress. Appearance: He is not ill-appearing or toxic-appearing. HENT: Head: Comments: Craniotomy incisions intact, clean and dry, no erythema. Mouth/Throat: Mouth: Mucous membranes are moist. Pharynx: Oropharynx is clear. Eyes: Extraocular Movements: Extraocular movements intact. Conjunctiva/sclera: Conjunctivae normal. Pupils: Pupils are equal, round, and reactive to light. Cardiovascular: Rate and Rhythm: Normal rate and regular rhythm. Pulses: Normal pulses. Heart sounds: No murmur heard. Pulmonary: Effort: Pulmonary effort is normal. No respiratory distress. Breath sounds: Normal breath sounds. No wheezing, rhonchi or rales. Abdominal: General: Bowel sounds are normal. There is no distension. Palpations: Abdomen is soft. Tenderness: There is no abdominal tenderness. Musculoskeletal: General: No tenderness. Cervical back: Neck supple. Right lower leg: No edema. Left lower leg: No edema. Skin: General: Skin is warm and dry. Coloration: Skin is not pale. Findings: No erythema or rash. Neurological: Mental Status: He is alert and oriented to person, place, and time. Comments: Significant interval improvement in right sided weakness, 4/5 strength in RUE, 4/5 strength in RLE. Sensation intact. Psychiatric: Mood and Affect: Mood normal. Behavior: Behavior normal. Thought Content: Thought content normal. Judgment: Judgment normal. Procedures: Operations: Procedure(s): @CRANI, FOR TUMOR, SUPRATENTORIAL, NOT MENINGIOMA (WRVU 30.83) STEREOTACTIC COMPUTER-ASSTD NAVIGATIONAL CRANIAL INTRADURAL (WRVU 3.75) MICROSCOPE USE (WRVU 3.46) MODIFIER,STEALTH 3 W/O KINEVO,CRANI/SPINE ONLY Other Major Procedures: None Allergies: Allergies Allergen Reactions ??? Cis Free Text Allergy Environmental. CIS - Allergic Rhinitis Significant Laboratory and Imaging Studies: DISCHARGE BASIC LABS Recent Labs 07/08/21 0507 07/07/21 0614 07/06/21 0623 WBC 14.9* 15.9* 15.2* HGB 13.1* 13.2* 13.6* HCT 39.8* 38.6* 40.4* PLATELET 317 358* 369* Recent Labs 07/08/21 0507 07/07/21 1820 07/07/21 0614 07/06/21 1827 07/06/21 0623 NA 131* 134* 130* < > 131* K 5.0 4.4 4.8 < > 4.6 CL 99 98 97* < > 94* CO2 23 24 24 < > 24 BUN 25* 27* 24* < > 24* CREATININE 0.85 0.89 0.84 < > 0.92 MAGNESIUM 0.81 -- 0.87 -- 0.93 PHOS 3.2 -- 3.0 -- 3.3 < > = values in this interval not displayed. No results for input(s): BILITOT, BILIDIR, AST, ALT, ALKPHOS in the last 168 hours. No results for input(s): INR, PTT in the last [address] hours. RECENT IMAGING RESULTS CT Head wo Contrast (Generic) Result Date: 06/28/2021 EXAMINATION: CT HEAD WO CONTRAST (GENERIC) CLINICAL HISTORY: COMBINATION WELDER metastatic lesions suspected, initial workup; progressive right sided weakness r/o mets/bleed TECHNIQUE: CT head performed without intravenous contrast administration. COMPARISON: Brain MRI 06/28/2021 FINDINGS: There is a large peripherally hyperdense mass within the superior left frontal lobe which measures 3 x 2.7 x 2.6 cm in size withcentral low attenuation. There is extensive surrounding vasogenic edema and local mass effect, with mild vvfc-sh-nezvc subfalcine herniation, and effacement of the anterior left lateral ventricle thereis minimal 3 mm sshk-qc-ewggh midline shift measured at the foramen of Monro. There is an additional3 cm hyperdense mass at the superior left vertex, with surrounding vasogenic edema with sulcal effacement. There is an additional 1.5 cm mass in the superior right frontal lobe (axial series 4 image 28) with additional small 5 mm lesion located more posteriorly (axial series 2 image 33). There is a right anterior middle cranial fossa arachnoid cyst which measures 3 x 2.4 cm in size with mild mass effect upon the anterior right temporal lobe. No extra-axial collections. There is extensive vasogenic ed julissa within the anterior and superior left frontal lobe. Global Cuellar matter white matter differentiation is otherwise well preserved. The orbits are unremarkable. The visualized paranasal sinuses are clear. The mastoid air cells are clear. No suspicious osseous lesions. No calvarial fracture. Normal extracalvarial soft tissues. 1. Multiple large hyperdense masses within the superior left frontal lobe with extensive surroundingedema. There are additional small hyperdense masses in the superior right frontal lobe. Findings aremost consistent with metastases. The degree of edema and mass effect is unchanged. 2. Small right middle cranial fossa arachnoid cyst. Thank you for letting us participate in the care of this patient. If you are a health care provider and have any questions regarding this report, please contact the number below. For patients who have questions please contact the health acute care physical therapist that requested your imaging first. Electronically signed by: Derrick Suresh MD, [facility] ), at 06/28/2021 8:03 PM MRI Brain wwo Contrast (Generic) Result Date: 07/01/2021 EXAMINATION: MRI BRAIN WWO CONTRAST (GENERIC) CLINICAL HISTORY: Brain/COMBINATION WELDER neoplasm, assess treatmentresponse F/u s/p crani for resection TECHNIQUE: MRI of the brain was performed before and after the intravenous administration of 15cc Dotarem. COMPARISON: CT 06/28/2021, MR 06/28/2021 FINDINGS: There has been interval left-sided craniotomies [...] products are associated with areas of resection. Postsurgical changes after resection of left-sided metastatic lesions. Thank you for letting us participate in the care of this patient. If you are a health care provider and have any questions regarding this report, please contact the number below. For patients who have questions please contact the health acute care physical therapist that requested your imaging first. Electronically signed by: David Lala MD, [facility] ([phone]), at 07/01/2021 8:46 AM XR Chest PA & Lateral (Generic) Result Date: 06/28/2021 EXAMINATION: XR CHEST PA AND LATERAL (GENERIC) CLINICAL HISTORY: new brain mass, cough TECHNIQUE: PAand lateral views of the chest, 3 images COMPARISON: None FINDINGS: There are median sternotomy wires. There is abnormal prominence of the right hilar contour. The left hilum is normal. No focal consolidation to suggest pneumonia. No pulmonary vascular congestion. No pneumothorax. No pleural effusions. Normal size of the cardiac silhouette. No acute osseous findings. Abnormal enlarged size of the right hilum concerning for adenopathy versus mass. Consider chest CT with contrast for further characterization. Thank you for letting us participate in the care of this patient. If you are a health care provider and have any questions regarding this report, please contact the number below. For patients who have questions please contact the health acute care physical therapist that requested your imaging first. Electronically signed by: Derrick Suresh MD, [facility] ([phone]), at 06/28/2021 9:23 PM Film Library- Storage Only MR Spine Result Date: 06/28/2021 This exam is auto-finalizing. It's purpose is for storage only. Film Library- Storage Only MR Head and Spine Result Date: 06/28/2021 This exam is auto-finalizing. It's purpose is for storage only. CT Chest Abdomen Pelvis w Contrast (Generic) Result Date: 06/29/2021 EXAMINATION: CT CHEST ABDOMEN PELVIS W CONTRAST (GENERIC) CLINICAL HISTORY: Metastatic disease evaluation new brain masses concerning for metastatic disease TECHNIQUE: Helical CT of the chest, abdomen,and pelvis was performed following the intravenous administration of contrast. Administered 88.0 ml of OMNIPAQUE 350.00 mg/ml. Oral contrast was administered. COMPARISON: Head CT and brain MRI dated 06/28/2021 FINDINGS: Chest: Lungs and large airways: Peripheral blebs at the upper lung zones, right greater than left. Cystic changes in the lungs consistent with centrilobular emphysema. Linear atelectasis or scarring left base greater than right. Pleura: No effusion. Heart/vasculature: Normal. Lymph nodes: 11 mm short axis precarinal node. Malignant appearing rim-enhancing nodes in the subcarinal region, 16 mm short axis and 15 mm short axis, images 57 through 64 series 3. Mediastinum and moni: Largeright hilar masses with relative low attenuation centrally. The cephalad mass best appreciated on image 53 of series 8 and image 53 of series 3 measures approximately 3.2 cm AP by 3.2 cm transverse by 3 cm in the craniocaudal dimension. The more caudal of the hilar masses measures approximately 3 cm AP by 2 cm transverse by approximately 2 cm in the craniocaudal dimension. This has a appearance of a conglomerate lorene mass in the right hilar region. Abdomen/pelvis: Liver: 8 mm low-attenuation lesionposterior segment right lobe liver near the dome image 88 series 3. 2 small to characterize. No other liver lesion. No intrahepatic ductal dilatation. Bile ducts: Nondilated. Gallbladder: No calcified gallstones. Normal caliber wall. Pancreas: Normal attenuation without ductal dilatation. Spleen: Normal. Adrenals: Normal. Kidneys: Asymmetric nephrograms. No obstruction. No mass. Urinary Bladder: Normal. Vasculature: Atherosclerotic changes of the of the aorta and iliac vessels without aneurysm. Lymph Nodes: No enlarged lymph nodes. Bowel: Nondilated, no wall thickening. Peritoneum and mesentery: Noascites, free air, or loculated fluid collection. No mesenteric inflammation. Abdominal wall: Fat-containing inguinal hernias, left larger than right. Tiny fat-containing umbilical hernia. Reproductiveorgans: Prostate enlargement, 5.9 cm. Osseous structures: No suspicious lesions. Disc space degenerative changes greatest at the L5-S1, L3-4 and L2-3 levels. Retrolisthesis of L5 on S1 greater than L3 on L4 and L2 on L3. Minimal anterolisthesis L4 on L5 related to facet arthropathy. 1. Right hilar masses with central low-attenuation suggesting necrosis. Pathologic mediastinal adenopathy. Findings likely represent primary lung cancer. 2. 8mm low-attenuation focus posterior segment right lobe of liver, too small to characterize. 3. Changes of centrilobular emphysema. Thank you for l etting us participate in the care of this patient. If you are a health care provider and have any questions regarding this report, please contact the number below. For patients who have questions please contact the health acute care physical therapist that requested your imaging first. Electronically signed by: Keo Wong MD, [facility] ([phone]), at 06/29/2021 1:59 AM MICROBIOLOGY Microbiology Results (Last 30 days) Procedure Component Value Units Date/Time COVID-19 PCR [[id number]] Collected: 07/05/21 1322 Lab Status: Final result Specimen: Nasopharyngeal Swab Updated: 07/05/21 1616 SARS-CoV-2 RNA PCR Not Detected Comment: This [...] using the Simplexa COVID-19 Direct Assay by [employer] as authorized by the FDA issued Emergency [...] Department of Pathology and Laboratory Medicine at [facility], certified under the Clinical Laboratory [...] fact sheets at the following FDA website: https://www.fda.gov/medical-devices/jcupgirkncp-wqzuaod-8304-loaht-16-donqebgzh- csi-gimjkcmhucfalo-jdxhkct-devices/xkjla-bkvthsrfdet-rpbx SARS-CoV-2 Source SPACE TECHNOLOGIST Swab COVID-19 PCR [[id number]] Collected: 06/28/212102 Lab Status: Final result Specimen: Nasopharyngeal Swab Updated: 06/28/21 2463 SARS-CoV-2 RNA PCR Not Detected Comment: This [...] using the Simplexa COVID-19 Direct Assay by [employer] as authorized by the FDA issued Emergency [...] Department of Pathology and Laboratory Medicine at [facility], certified under the Clinical Laboratory [...] fact sheets at the following FDA website: https://www.fda.gov/medical-devices/rnhgvmptmdg-wvfpttx-5365-yxutt-18-ofmnvvepx- dku-ivszskhlqcypgq-nlkoktn-devices/kzhxf-ggivwdmzprr-sjar SARS-CoV-2 Source SPACE TECHNOLOGIST Swab Condition on Discharge Discharge Conditions/Prognosis: Upon discharge the pt is hemodynamically stable, fully ambulatory without requiring supplemental oxygen, holding down food/drink, afebrile and pain free. Disposition Discharge to: acute rehab Discharge Medications: Your Medications New Medications Dose Details acetaminophen 325 mg Tab Commonly known as: Tylenol Take 3 tablets by mouth every 8 hours as needed for Pain or Fever. 975 mg Quantity: 30 tablet Refills: 1 dexamethasone 1 mg Tab Commonly known as: DECADRON Take 1 mg twice daily 07/08-07/10, then take 1 mg daily 07/11-07/13, then stop Quantity: 8 tablet Refills: 0 levETIRAcetam 1,000 mg Tab Commonly known as: KEPPRA Take 1 tablet by mouth 2 times daily. 1,000 mg Quantity: 60 tablet Refills: 12 metoprolol tartrate 25 mg Tab Commonly known as: Lopressor Take 0.5 tablets by mouth 2 times daily. 12.5 mg Quantity: 180 tablet Refills: 3 nicotine 21 mg/24 hr Pt24 Commonly known as: Nicoderm CQ Change 1 patch on the skin daily. Start taking on: July 09, 2021 1 patch Quantity: 28 patch Refills: 0 pantoprazole EC 40 mg Tbec Commonly known as: Protonix Take 1 tablet by mouth daily. Start taking on: July 09, 2021 40 mg Quantity: 90 tablet Refills: 3 sodium chloride 1 gram Tab Take 1 tablet by mouth 3 times daily. 1 g Refills: 0 Continued medications, unchanged Dose Details atorvastatin 80 mg Tab Commonly known as: Lipitor Take 80 mg by mouth every evening. 80 mg Refills: 0 STOPPED Medications aspirin EC 81 mg Tbec furosemide 20 mg Tab Commonly known as: Lasix ibuprofen 200 mg Tab Commonly known as: Advil metoprolol succinate XL 25 mg Tablet sr Commonly known as: Toprol-XL Viagra 100 mg Tab Generic drug: sildenafiL Instructions Given to Patient at Discharge: Patient Instructions Instructions on Discharge to Home Why you were hospitalized - You were hospitalized for right sided weakness and seizure activity and were found to have several lesions in your brain concerning for metastatic cancer. You also have a mass in your right lung that is concerning for primary lung cancer. You had surgery to remove some of the masses in your brain and these were sent to the pathology lab to obtain a definitive diagnosis. You were seen by the oncology, radiation oncology, neurosurgery, and palliative care teams. You will follow up with all of these specialists outpatient to discuss treatment options and your goals of care. You are being treated with steroid medication to reduce the inflammation in your brain from the tumors. You will continue to taper this over the next 6 days. You were also started on a new medication to prevent seizures due to the brain lesions. This is called keperryra. You will follow up with the neurology specialists. You were found to have a low sodium level in the blood. This has remained stable on salt tablets which you will continue on discharge. We also recommend monitoring your intake of fluids and limiting itto less than 1.5 L. You will need serial blood draws to monitor the sodium level until it stabilizesin the normal range. Call your doctor or seek medical attention if you develop the following - chest pain, shortness of breath, fever, cough, weakness in an arm or leg, seizure like activity Activity level - as tolerated Diet - no change in previous diet Driving - as before hospitalization Shower/Bath - permitted Home Oxygen therapy - none Changes in Your Medications: New Medications: - Keppra 1000 mg twice daily - Dexamethasone taper, see instructions below - Pantoprazole 40 mg daily - Sodium chloride tablets 1 g three times daily Medication dose changes: - Reduce metoprolol to 12.5 mg twice daily Stop these medications: - Stop aspirin. You can restart on 07/14/21 Follow-up: Future Appointments Date Time Provider Department Center 08/02/2021 11:00 AM Estefania Justice MD [facility] [id number] Your Inpatient Doctor: Benita Leblanc MD Your Primary Care Provider: Myriam Riggins MD [phone] For questions regarding this document or issues relating to this hospitalization on the Medical Service, please contact your inpatient physician through the [facility] [employer] . Issues after hours and on weekends will be handled by the Hospitalist staff on-call. General Instructions None Future Appointments and Orders Future Appointments and Orders Future Appointments Provider Department Dept Phone 08/02/2021 11:00 AM Estefania Justice MD Neurosurgery at [facility] Arrive at: Home [phone] Please do not come in for this visit. Your provider will call you at the number you provided. Future Orders Complete By Expires Referral to Neurology [[id number] Custom] As directed Process Instructions: If no progress note charted, please enter Clinical details in comments. Scheduling Instructions: Questions: My question or request is: newly diagnosed metastatic cancer to the brain and a right hilar mass, s/p crani for brain biopsy, seizure activity on keppra ppx Referral to Palliative Care [[id number] Custom] As directed Process Instructions: If no progress note charted, please enter Clinical details in comments. Scheduling Instructions: Questions: My question or request is: newly diagnosed metastatic cancer to the brain and a right hilar mass, s/p crani for brain biopsy, now awaiting results and treatment options Provider Contact Information: Myriam Riggins MD [address] [place] [address] / [facility] [id number] Discharge References/Attachments: Discharge References/Attachments None Time taking care of discharge including coordination and plan of care was more than 30 minutes. Signed: Benita Leblanc MD 07/08/2021 9:48 AM documented in this encounter Discharge Instructions Discharge Flory Taylor CMA - 07/08/2021 10:43 AM EDT YOU ARE SCHEDULED FOR A FOLLOW UP APPOINTMENT AT YOUR PRIMARY CARE PROVIDER'S OFFICE ON 07/18/2021 AT 11:20AM WITH DR LAURA WILKERSON Patient InstructionsBenita Leblanc MD - 07/08/2021 9:40 AM EDT Instructions on Discharge to Home Why you were hospitalized - You were hospitalized for right sided weakness and seizure activity and were found to have several lesions in your brain concerning for metastatic cancer. You also have a mass in your right lung that is concerning for primary lung cancer. You had surgery to remove some of the masses in your brain and these were sent to the pathology lab to obtain a definitive diagnosis. You were seen by the oncology, radiation oncology, neurosurgery, and palliative care teams. You will follow up with all of these specialists outpatient to discuss treatment options and your goals of care. You are being treated with steroid medication to reduce the inflammation in your brain from the tumors. You will continue to taper this over the next 6 days. You were also started on a new medication to prevent seizures due to the brain lesions. This is called keperryra. You will follow up with the neurology specialists. You were found to have a low sodium level in the blood. This has remained stable on salt tablets which you will continue on discharge. We also recommend monitoring your intake of fluids and limiting itto less than 1.5 L. You will need serial blood draws to monitor the sodium level until it stabilizesin the normal range. Call your doctor or seek medical attention if you develop the following - chest pain, shortness of breath, fever, cough, weakness in an arm or leg, seizure like activity Activity level - as tolerated Diet - no change in previous diet Driving - as before hospitalization Shower/Bath - permitted Home Oxygen therapy - none Changes in Your Medications: New Medications: - Keppra 1000 mg twice daily - Dexamethasone taper, see instructions below - Pantoprazole 40 mg daily - Sodium chloride tablets 1 g three times daily Medication dose changes: - Reduce metoprolol to 12.5 mg twice daily Stop these medications: - Stop aspirin. You can restart on 07/14/21 Follow-up: PCP follow up on 07/18 at 11:20 AM. Future Appointments Date Time Provider Department Center 08/02/2021 11:00 AM Estefania Justice MD [facility] [id number] [facility] Your Inpatient Doctor: Benita Leblanc MD Your Primary Care Provider: Myriam Riggins MD [phone] For questions regarding this document or issues relating to this hospitalization on the Medical Service, please contact your inpatient physician through the [facility] [employer] . Issues after hours and on weekends will be handled by the Hospitalist staff on-call. documented in this encounter Medications at Time of Discharge Medication Sig Dispensed Refills Start Date End Date acetaminophen (Tylenol) Take 3 tablets by 30 [...] 0 0 05/20/2021 mg Tablet every evening. levETIRAcetam (KEPPRA) Take 1 tablet by 60 tablet 12 022 08/12/2021 1,000 mg Tablet mouth 2 times daily. documented as of this encounter Progress Notes Aziza Mccormack - 07/08/2021 12:37 PM EDT Nutrition Services Note - Low Nutrition Acuity Betsy Laird is a 75 y.o. male Reason for intervention: follow up Nutrition Plan: Continue current diet Encourage good po intake Monitor weight Tums noted Chart reviewed. Pt to discharge today. Active Orders Diet Regular diet 1500 mL FLUID Frequency: Effective Now Number of Occurrences: Until Specified Admit Weight: 77.11 kg Estimated body mass index is 23.98 kg/m?? as calculated from the following: Height as of this encounter: 177.8 cm (5' 10). Weight as of this encounter: 75.8 kg (167 lb 1.7 oz). Wt Readings from Last 5 Encounters: 07/04/21 75.8 kg (167 lb 1.7 oz) 06/30/21 75.7 kg (166 lb 14.2 oz) Weight loss: none - per chart Appetite: variable (0-100%) - per chart Food allergies:no known food allergies - per chart Chewing/Swallowing difficulty: none - per chart Nausea/Vomiting: no nausea and no vomiting - per chart Last Bowel Movement: 07/07/21 Nutrition services to follow weekly through hospital course unless consulted in the interim. Aziza Mccormack DTR Anna Mejia - 07/08/2021 11:55 AM EDT Office of Care Management(OCM)/Video Surveillance Technician(RS) Patient Name: Betsy Laird : 1945 Patient has been offered a Rehab bed at [facility]. Daughter will transport patient at 12:00 No MD to MD report necessary: Please call Nursing Report to [phone], ask for on call. Info to accompany patient: Narcotic Prescriptions Copies of Medication Administration Records and IV sheets for past two weeks. Plan: Video Surveillance Technician will be available to the patient and Cook Pressure for further assistance. Patient will be discharged to: [facility] [place] [place] Video Surveillance Technician Benita Leblanc MD - 07/08/2021 9:16 AM EDT Hospital Medicine - Attending Day of Discharge Documentation Discharge diagnosis Active Hospital Problems Diagnosis ??? 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 Hyponatremia ??? Hyperglycemia ??? Non-small cell carcinoma of lung ??? Cigarette nicotine dependence with withdrawal ??? CAD (coronary artery disease), HLD Resolved Hospital Problems No resolved problems to display. Secondary Issues There are no active non-hospital problems to display for this patient. I have personally seen and examined the patient and they are ready for discharge. I spent >30 minutes involved in the final examination of the patient, discussion of the hospital stay, instructions for continuing care to all relevant caregivers, and preparation of discharge records, prescriptions and referral forms. Plans ? Discharge to acute rehab at [facility]. ? Follow-up scheduled with PCP, Neurosurgery. Follow-up to be arranged with Oncology, Radiation Oncology, Palliative care, and Neurology. ? Please see the Discharge Summary for complete details of any medication changes and additional plans. Benita Leblanc MD - 07/07/2021 9:42 PM EDT [facility] Medicine Attending Daily Progress Note Patient Name: Betsy Laird Service: Hospital Medicine Admit Date: 06/28/2021 Hospital Day: 9 Date of Service: 07/07/2021 Patient Description: Betsy Laird is a 75 y.o. male with pmh significant for CAD s/p CABG, hx of tobacco use who presented with new neurological deficits and has been found to have likely primary lung with brain mets with vasogenic edema. He had a craniotomy performed on 06/30 by Neurosurgery and prelim biopsy report shows that the patient has NSCLC. Neurosurgery recommending whole brain radiation. Onc, Rad Onc, and Palliative Care have been consulted with plan for outpatient follow up to discuss treatment options. ASSESSMENT AND PLAN Active Problems: Active Hospital Problems Diagnosis ??? 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 Hyponatremia ??? Hyperglycemia ??? Non-small cell carcinoma of lung ??? Cigarette nicotine dependence with withdrawal ??? CAD (coronary artery disease), HLD Resolved Hospital Problems No resolved problems to display. Non-small cell carcinoma of lung He has evidence of a right hilar mass on CT scan that could be suggestive of primary lung malignancy. Evidence of metastasis to the brain; biopsy obtained during craniotomy. Preliminary path results show NSCLC. 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 MRI showing multiple bilateral intracranial lesions; largest lesion is in the left frontal lobe with surrounding vasogenic edema. Imaging is most consistent with metastasis and patient has concurrent hilar mass which is the likely primary malignancy. Neurosurgery has been consulted and performed debulking procedure/craniotomy on 06/30, prelimbiopsy on frozen section was NSCLC. Have consulted oncology, radiation oncology, and palliative care who have all evaluated patient and plan for outpatient follow up once definitive diagnosis is established to discuss treatment options. He will also need outpatient neurology follow up for seizure. Continues to have gradual improvement in R sided weakness. PT/OT recommended acute rehab on discharge. He is medically ready pending bed availability. PLAN -Appreciate Neurosurgery/Onc/Rad Onc/Palliative Care consults -Maintain SBP < 160 -SQH ok per neurosurgery -Resume home ASA 2 weeks post op (07/14) -Decadron taper per Neurosurgery recommendations, starting 07/02: 4mg BIDx3d, 2mg BIDx3d, 1mg BIDx3d,1mg QDx3d, stop -GI ppx while on steroids -Continue keppra 1000 mg BID -Q shift neuro checks -Target eunatremia post craniotomy -PT/OT, recommend acute rehab -F/u with Neurosurgery on 08/02/21 -Will also have f/u with Onc, Rad Onc, Palliative Care, and Neurology Cigarette nicotine dependence with withdrawal Patient has chronic nicotine dependence, quit smoking several days prior to admission. PLAN -Recommend cessation and abstinence -Nicotine patch CAD (coronary artery disease), HLD CAD s/p CABG in 2019. No acute issues. PLAN -Hold ASA per neurosurgery; okay to resume 2 weeks post op (07/14) -Continue Atorvastatin and BB Hyperglycemia In setting of dexamethasone administration. PLAN -Started on ISS while in neuro icu s/p craniotomy for close glucose management, continue while on steroids -HgbA1c 5.5 -Do not anticipate insulin requirement on discharge Hyponatremia Post operative hyponatremia. Na recovered to 136 but then fell to 130. Now slow recovery, Na 133 today. PLAN -Target eunatremia post craniotomy per NSGY -Urine studies c/w SIADH -Fluid restrict 1500 mL -Continue NaCl tabs 1g TID, taper over 1-2 weeks -Trend BMP q12h until Na > 134, then daily # Routine: - Prophylaxis: DVT: SQH GI: PPI Glycemic control: As above - Nutrition: Regular diet 1500 mL FLUID - Code Status: Attempt Cardiopulmonary Resuscitation - Inpatient - Family Communication: Update daughters -Disposition: Medically ready for discharge to acute rehab. SUBJECTIVE Major 24 Hour Events: -Na 131 -> 133 -> 130 -> 134 Patient was evaluated and examined at bedside. He feels well and is encouraged by ongoing improvement in right sided strength and progress ambulating. Denies complaints. Hopeful for discharge to rehab soon. Denies chest pain, dyspnea, fever, chills, cough, n/v, abdominal pain, diarrhea, constipation, dysuria. No headache or vision changes. No new numbness or weakness. OBJECTIVE BP 128/74 (BP Location (NBP): Right arm, Patient Position: Lying) Pulse 72 Temp 36.6 ??C (97.8 ??F) (Oral) Resp 16 Ht 177.8 cm (5' 10) Wt 75.8 kg (167 lb 1.7 oz) SpO2 93% BMI 23.98 kg/m?? Temp (24hrs), Av.6 ??C (97.8 ??F), Min:36.2 ??C (97.1 ??F), Max:36.7 ??C (98.1 ??F) Intake/Output Summary (Last 24 hours) at 07/07/20212141 Last data filed at 07/07/20211999 Gross per 24 hour Intake 750 ml Output 850 ml Net -100 ml Vitals: Last Value Range Last 24 hrs Temperature Temp: 36.6 ??C (97.8 ??F) Temp: [36.2 ??C (97.1 ??F)-36.7 ??C (98.1 ??F)] Heart Rate Heart Rate: 72 Heart Rate: -- Blood Pressure BP: 128/74 BP: (125-147)/(72-76) Respiratory Rate Resp: 16 Resp: [16-18] SpO2 SpO2: 93 % SpO2: [92 %-93 %] Weight: Last: 75.8 kg (167 lb 1.7 oz) I/Os: 07/06 0701 - 07/07 0700 In: 1297 [P.O.:1297] Out: 750 [Urine:750] Admit: 77.11 kg Physical Exam Constitutional: General: He is not in acute distress. Appearance: He is not toxic-appearing or diaphoretic. Comments: Sitting upright in chair, appears comfortable, awake and conversant. HENT: Head: Comments: Craniotomy incisions over scalp c/d/i. No erythema. Nose: No congestion. Mouth/Throat: Mouth: Mucous membranes are moist. Pharynx: No oropharyngeal exudate. Eyes: General: No scleral icterus. Extraocular Movements: Extraocular movements intact. Pupils: Pupils are equal, round, and reactive to light. Cardiovascular: Rate and Rhythm: Normal rate and regular rhythm. Heart sounds: Normal heart sounds. No murmur heard. Pulmonary: Effort: Pulmonary effort is normal. No respiratory distress. Breath sounds: Normal breath sounds. No stridor. No wheezing, rhonchi or rales. Comments: Good air entry b/l. Abdominal: General: Abdomen is flat. Bowel sounds are normal. There is no distension. Palpations: Abdomen is soft. Tenderness: There is no abdominal tenderness. There is no guarding. Musculoskeletal: General: No swelling or deformity. Normal range of motion. Right lower leg: No edema. Left lower leg: No edema. Skin: General: Skin is warm and dry. Coloration: Skin is not jaundiced or pale. Findings: No bruising, erythema, lesion or rash. Neurological: Mental Status: He is alert and oriented to person, place, and time. Cranial Nerves: No cranial nerve deficit. Sensory: No sensory deficit. Motor: Weakness present. Comments: Alert, oriented, speech intact, R upper and lower extremity weakness with significant improvement, 4/5 strength in R upper and lower extremities Psychiatric: Mood and Affect: Mood normal. Behavior: Behavior normal. LABS CBC: Recent Labs 07/07/21 0614 07/06/21 0623 07/05/21 0600 WBC 15.9* 15.2* 13.9* HGB 13.2* 13.6* 13.1* PLATELET 358* 369* 344 BMP: Recent Labs 07/07/21 1820 07/07/21 0614 07/06/211826 NA 134* 130* 133* K 4.4 4.8 4.7 CL 98 97* 96* CO2 24 24 25 BUN 27* 24* 29* CREATININE 0.89 0.84 0.92 GLUCOSE 146 99 120 Calcium, Magnesium, Phosphate: Recent Labs 07/07/21181907/07/21 0607/06/21182607/06/21 0623 07/05/21 1841 07/05/21 0600 CALCIUM 8.6 8.4* 8.7 8.6 < > 8.5 MAGNESIUM -- 0.87 -- 0.93 -- 0.89 PHOS -- 3.0 -- 3.3 -- 3.3 < > = values in this interval not displayed. LFTs: No results for input(s): AST, ALT, ALKPHOS, BILITOT, BILIDIR in the last 168 hours. Troponin: No results for input(s): TROPONINT, CK in the last 168 hours. ABG: No results for input(s): PHART, TNE9EMG, PO2ART, SAV3FTD in the last 168 hours. Coags: Recent Labs 06/28/21 2138 PT 12.3 PTT 33 INR 1.1 MICRO Microbiology Results (Last 30 days) Procedure Component Value Units Date/Time COVID-19 PCR [[id number]] Collected: 07/05/21 1322 Lab Status: Final result Specimen: Nasopharyngeal Swab Updated: 07/05/21 1616 SARS-CoV-2 RNA PCR Not Detected Comment: This [...] using the Simplexa COVID-19 Direct Assay by [employer] as authorized by the FDA issued Emergency [...] Department of Pathology and Laboratory Medicine at [facility], certified under the Clinical Laboratory [...] fact sheets at the following FDA website: https://www.fda.gov/medical-devices/mixbuwbruww-ptcsrfd-7813-etaoy-84-dbuemizhz- rsc-nwexuzeerykfqf-liiubrq-devices/ntuzw-bmvjgdmeqpz-aysp SARS-CoV-2 Source SPACE TECHNOLOGIST Swab COVID-19 PCR [[id number]] Collected: 06/28/212102 Lab Status: Final result Specimen: Nasopharyngeal Swab Updated: 06/28/21 2695 SARS-CoV-2 RNA PCR Not Detected Comment: This [...] using the Simplexa COVID-19 Direct Assay by [employer] as authorized by the FDA issued Emergency [...] Department of Pathology and Laboratory Medicine at [facility], certified under the Clinical Laboratory [...] fact sheets at the following FDA website: https://www.fda.gov/medical-devices/mztpybaufkb-fllytge-9495-jfgmg-44-htvglndwc- cko-mkxwvtensqvcap-lxudscb-devices/auzwd-fhctrxfeubj-hoau SARS-CoV-2 Source SPACE TECHNOLOGIST Swab RECENT IMAGING None in past 24 hours. Signed: Benita Leblanc MD 07/07/2021 9:42 PM Hospital Medicine Team Pager: #[phone] IPI Certification I certify that I am a D-H credentialed attending provider with admitting privileges and that the patient meets or has met medical necessity to require an inpatient IPI level of care meeting a minimum of two midnights or is on the [facility] inpatient only procedure list (status C) due to: Vasogenic edema with metastatic malignancy, seizure disorder, and neurological deficits requiring ongoing EEG monitoring, and surgical intervention of brain malignancy Benita Leblanc MD - 07/06/2021 9:34 PM EDT [facility] Medicine Attending Daily Progress Note Patient Name: Betsy Laird Service: Hospital Medicine Admit Date: 06/28/2021 Hospital Day: 8 Date of Service: 07/06/2021 Patient Description: Betsy Laird is a 75 y.o. male with pmh significant for CAD s/p CABG, hx of tobacco use who presented with new neurological deficits and has been found to have likely primary lung with brain mets with vasogenic edema. He had a craniotomy performed on 06/30 by Neurosurgery and prelim biopsy report shows that the patient has NSCLC. Neurosurgery recommending whole brain radiation. Onc, Rad Onc, and Palliative Care have been consulted with plan for outpatient follow up to discuss treatment options. ASSESSMENT AND PLAN Active Problems: Active Hospital Problems Diagnosis ??? 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 Hyponatremia ??? Hyperglycemia ??? Non-small cell carcinoma of lung ??? Cigarette nicotine dependence with withdrawal ??? CAD (coronary artery disease), HLD Resolved Hospital Problems No resolved problems to display. Non-small cell carcinoma of lung He has evidence of a right hilar mass on CT scan that could be suggestive of primary lung malignancy. Evidence of metastasis to the brain; biopsy obtained during craniotomy. Preliminary path results show NSCLC. 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 MRI showing multiple bilateral intracranial lesions; largest lesion is in the left frontal lobe with surrounding vasogenic edema. Imaging is most consistent with metastasis and patient has concurrent hilar mass which is the likely primary malignancy. Neurosurgery has been consulted and performed debulking procedure/craniotomy on 06/30, prelimbiopsy on frozen section was NSCLC. Have consulted oncology, radiation oncology, and palliative care who have all evaluated patient and plan for outpatient follow up once definitive diagnosis is established to discuss treatment options. He will also need outpatient neurology follow up for seizure. Continues to have gradual improvement in R sided weakness. PT/OT recommended acute rehab on discharge. He is medically ready pending bed availability. PLAN -Appreciate Neurosurgery/Onc/Rad Onc/Palliative Care consults -Maintain SBP < 160 -SQH ok per neurosurgery -Resume home ASA 2 weeks post op (07/14) -Decadron taper per Neurosurgery recommendations, starting 07/02: 4mg BIDx3d, 2mg BIDx3d, 1mg BIDx3d,1mg QDx3d, stop -GI ppx while on steroids -Continue keppra 1000 mg BID -Q shift neuro checks -Target eunatremia post craniotomy -PT/OT, recommend acute rehab -F/u with Neurosurgery on 08/02/21 -Will also have f/u with Onc, Rad Onc, Palliative Care, and Neurology Cigarette nicotine dependence with withdrawal Patient has chronic nicotine dependence, quit smoking several days prior to admission. PLAN -Recommend cessation and abstinence -Nicotine patch CAD (coronary artery disease), HLD CAD s/p CABG in 2019. No acute issues. PLAN -Hold ASA per neurosurgery; okay to resume 2 weeks post op (07/14) -Continue Atorvastatin and BB Hyperglycemia In setting of dexamethasone administration. PLAN -Started on ISS while in neuro icu s/p craniotomy for close glucose management, continue while on steroids -HgbA1c 5.5 -Do not anticipate insulin requirement on discharge Hyponatremia Post operative hyponatremia. Na recovered to 136 but now down trending to 130. PLAN -Target eunatremia post craniotomy per NSGY -Urine studies c/w SIADH -Fluid restrict 1500 mL -Continue NaCl tabs 1g TID, taper over 1-2 weeks -Trend BMP q12h until Na > 134, then daily # Routine: - Prophylaxis: DVT: SQH GI: PPI Glycemic control: As above - Nutrition: Regular diet 1500 mL FLUID - Code Status: Attempt Cardiopulmonary Resuscitation - Inpatient - Family Communication: Update daughters -Disposition: Medically ready for discharge to acute rehab. SUBJECTIVE Major 24 Hour Events: -Na 131 -> 133 Patient was evaluated and examined at bedside. He feels well without complaints. Was able to ambulate with PT this morning using a walker and is very pleased with his progress. Believes he will benefitgreatly from a short rehab stay to get stronger before he starts treatment for his cancer. Denies chest pain, dyspnea, fever, chills, lightheadedness. Appetite improving. OBJECTIVE BP 133/71 (BP Location (NBP): Right arm, Patient Position: Sitting) Pulse 72 Temp 36.4 ??C (97.5??F) (Axillary) Resp 18 Ht 177.8 cm (5' 10) Wt 75.8 kg (167 lb 1.7 oz) SpO2 93% BMI 23.98kg/m?? Temp (24hrs), Av.8 ??C (98.2 ??F), Min:36.4 ??C (97.5 ??F), Max:37 ??C (98.6 ??F) Intake/Output Summary (Last 24 hours) at 07/06/2021 2134 Last data filed at 07/06/2021 1758 Gross per 24 hour Intake 1447 ml Output 850 ml Net 597 ml Vitals: Last Value Range Last 24 hrs Temperature Temp: 36.4 ??C (97.5 ??F) Temp: [36.4 ??C (97.5 ??F)-37 ??C (98.6 ??F)] Heart Rate Heart Rate: 72 Heart Rate: [72] Blood Pressure BP: 133/71 BP: (131-133)/(71-76) Respiratory Rate Resp: 18 Resp: [18] SpO2 SpO2: 93 % SpO2: [89 %-93 %] Weight: Last: 75.8 kg (167 lb 1.7 oz) I/Os: 07/05 0701 - 07/06 0700 In: 690 [P.O.:690] Out: 1660 [Urine:1660] Admit: 77.11 kg Physical Exam Constitutional: General: He is not in acute distress. Appearance: He is not toxic-appearing or diaphoretic. Comments: Sitting upright in chair, appears comfortable, awake and conversant. HENT: Head: Comments: Craniotomy incisions over scalp c/d/i. No erythema. Nose: No congestion. Mouth/Throat: Mouth: Mucous membranes are moist. Pharynx: No oropharyngeal exudate. Eyes: General: No scleral icterus. Extraocular Movements: Extraocular movements intact. Pupils: Pupils are equal, round, and reactive to light. Cardiovascular: Rate and Rhythm: Normal rate and regular rhythm. Heart sounds: Normal heart sounds. No murmur heard. Pulmonary: Effort: Pulmonary effort is normal. No respiratory distress. Breath sounds: Normal breath sounds. No stridor. No wheezing, rhonchi or rales. Comments: Good air entry b/l. Abdominal: General: Abdomen is flat. Bowel sounds are normal. There is no distension. Palpations: Abdomen is soft. Tenderness: There is no abdominal tenderness. There is no guarding. Musculoskeletal: General: No swelling or deformity. Normal range of motion. Right lower leg: No edema. Left lower leg: No edema. Skin: General: Skin is warm and dry. Coloration: Skin is not jaundiced or pale. Findings: No bruising, erythema, lesion or rash. Neurological: Mental Status: He is alert and oriented to person, place, and time. Cranial Nerves: No cranial nerve deficit. Sensory: No sensory deficit. Motor: Weakness present. Comments: Alert, oriented, speech intact, R upper and lower extremity weakness with interval improvement Psychiatric: Mood and Affect: Mood normal. Behavior: Behavior normal. LABS CBC: Recent Labs 07/06/21 0623 07/05/21 0600 07/04/21 0628 WBC 15.2* 13.9* 12.7* HGB 13.6* 13.1* 13.5* PLATELET 369* 344 335 BMP: Recent Labs 07/06/21 1827 07/06/21 0623 07/05/21 1841 NA 133* 131* 131* K 4.7 4.6 4.5 CL 96* 94* 97* CO2 25 24 22 BUN 29* 24* 23* CREATININE 0.92 0.92 0.94 GLUCOSE 120 99 133 Calcium, Magnesium, Phosphate: Recent Labs 07/06/21 1827 07/06/21 0623 07/05/21 1841 07/05/21 0600 07/04/21 1258 07/04/21 0628 CALCIUM 8.7 8.6 8.3* 8.5 < > 8.8 MAGNESIUM -- 0.93 -- 0.89 -- 0.92 PHOS -- 3.3 -- 3.3 -- 3.3 < > = values in this interval not displayed. LFTs: No results for input(s): AST, ALT, ALKPHOS, BILITOT, BILIDIR in the last 168 hours. Troponin: No results for input(s): TROPONINT, CK in the last 168 hours. ABG: No results for input(s): PHART, KZW1SOI, PO2ART, GNI6UPV in the last 168 hours. Coags: Recent Labs 06/28/21 2138 PT 12.3 PTT 33 INR 1.1 MICRO Microbiology Results (Last 30 days) Procedure Component Value Units Date/Time COVID-19 PCR [[id number]] Collected: 07/05/21 1322 Lab Status: Final result Specimen: Nasopharyngeal Swab Updated: 07/05/21 1616 SARS-CoV-2 RNA PCR Not Detected Comment: This [...] using the Simplexa COVID-19 Direct Assay by [employer] as authorized by the FDA issued Emergency [...] Department of Pathology and Laboratory Medicine at [facility], certified under the Clinical Laboratory [...] fact sheets at the following FDA website: https://www.fda.gov/medical-devices/qktyzhkcvxu-lcozvzp-4994-sdirs-61-wsvqxqysl- ual-xkziwvuzqsddxm-ixtmqgl-devices/pnvru-gjvgzgasezk-xsum SARS-CoV-2 Source SPACE TECHNOLOGIST Swab COVID-19 PCR [[id number]] Collected: 06/28/21 210 Lab Status: Final result Specimen: Nasopharyngeal Swab Updated: 06/28/21 630 SARS-CoV-2 RNA PCR Not Detected Comment: This [...] using the Simplexa COVID-19 Direct Assay by [employer] as authorized by the FDA issued Emergency [...] Department of Pathology and Laboratory Medicine at [facility], certified under the Clinical Laboratory [...] fact sheets at the following FDA website: https://www.fda.gov/medical-devices/tgjxxrcpbak-jimqbon-5013-lecud-03-zqpqzejpv- qoi-uaqefcommfliqf-uaizfcz-devices/tezxg-jtfitsmtfpq-dgad SARS-CoV-2 Source SPACE TECHNOLOGIST Swab RECENT IMAGING None in past 24 hours. Signed: Benita Leblanc MD 07/06/2021 9:34 PM Hospital Medicine Team Pager: [phone] IPI Certification I certify that I am a D-H credentialed attending provider with admitting privileges and that the patient meets or has met medical necessity to require an inpatient IPI level of care meeting a minimum of two midnights or is on the [facility] inpatient only procedure list (status C) due to: Vasogenic edema with metastatic malignancy, seizure disorder, and neurological deficits requiring ongoing EEG monitoring, and surgical intervention of brain malignancy Radha Gramajo OT - 07/06/2021 3:31 PM EDT Occupational Therapy Treatment Note Treatment Number OT: 4 Patient profile:?Per MD: Betsy Laird??is a 75 y.o.??male??right-handed on ASA81 (has not taken for a few days) with PMH tobacco use, CAD s/p CABG, who presented to OSH with 3-4 week history of initially RIGHT lower extremity weakness, inability to ambulate without assistance x1 week, and approximately 5 day history of RIGHT upper extremity weakness. ??MRI exhibited multiple bilateral intracraniallesions, the largest of which are in the LEFT frontal lobe with surrounding vasogenic edema concerning for metastases given a R hilar lung mass as well. ?? 06/30, Dr. Justice: Left frontal/parietal craniotomies for tumor resections (FS = NSCLC) ?? Past Medical History No past medical history on file. ?? Past Surgical History No past surgical history on file. ? Social History: Patient lives??alone in a house in [place], [place] with his dog Home Setup:??Pt reports that he has a ramp to enter with bilateral rails. Pt has one level home witha basement. Pt reports that he sleeps on the sofa at times. Pt has a tub/shower combo with GB.?? DME:??Walker, wheelchair?? Baseline ADL/Mobility:??Prior to admission; Pt was independent with ADL routines, transfers and IADLroutines until ~2 weeks ago when Pt having difficulty with R hemibody. Pt reports that he started using FWW and wheelchair. Pt reports ~2 falls recently. 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 Pt daughter Antonina, lives farther away, but issupportive. ?? Precautions/Special Considerations:??Full code, up with assistance, NPO, at risk for falls, SBP <160 ?? Interval History: non-significant ?? S: I think one week of rehab will be really good for me ?? O: Patient seen for skilled OT treatment, and demonstrated the following: ?? Self-care: ? Pt supervision for doffing socks ? Pt CGA for [facility] pants at standing level; only on cues for recalling technique to don RLE initially ? Pt supervision for donning L shoe; able to tie ? Pt min A for donning R shoe with AFO; able to use technique to slide foot down AFO to assist with donning ? Pt able to doff shoes with supervision at end of session ? Functional Mobility: ? Pt CGA for sit to stand transfer from recliner chair ? Pt min for ambulating with FWW ~150 ft ? Cues to advance RLE increased gait speed, but Pt noted with less fatigue RLE ? Pt left up in recliner chair with all needs within reach at end of session ? Cognition: ? Behavior / Mood: alert and cooperative ? Alert and oriented to: person, place, time and situation ? Follows commands: 2 step and 100% of the time ? Attention: WFL ? Safety awareness: decreased insight into deficits ? Pt noted with mild dysarthria when speaking quickly ? 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 Vitals: Within parameters ? Strength/ROM: ? RUE 4/5; marked improvements with honing machine set up operator tool strength this date ? LUE 07/14 ?? Pain: No reports of pain ?? Education: Pt/family/caregiver education ongoing regarding: Role of occupational therapy/rehabilitation, Transfers, Assistive device/technique, ADL, Positioning, Safety, Functional Mobility, Balance, Recommendations and Discharge planning. ?? Staff Communication: Patient status, treatment, and mobility recommendations discussed with nursing/other staff. ?? ASSESSMENT: Pt seen for OT services in conjunction with PT. He was noted with increased use of RUE. Pt educated on activities to perform to assist with RUE strengthening. He participated in dressing routines and ambulation. Pt continues with decreased ability to perform ADL and transfer routines, however is making good progress. Pt lives alone and will need to be able to perform all ADL and IADL routines without assistance. Continue to recommend acute rehab to maximize functional outcomes. Pt will benefit from ongoing therapeutic interventions to achieve pt's and therapy goals ?? Anticipated Discharge Disposition (OT): acute rehabilitation facility ?? Equipment Recommendations: ?? Other Recommendations: ?? Utilize upright chair position using bed features or transfer to recliner chair as appropriate with??min Ax2 with FWW, ambulate as tolerated ?? Encourage participation in ADL's by providing set up A on tray table and physical assist only as needed ? Goals:??To be achieved by??07/09/21. 2. Pt will be??min Ax1??for toileting routine at ambulatory level with LRAD - in progress 4. Pt will be independent for HEP for BUEs- progressing 5.??Pt will be able to stand for 8 minutes to perform sink level grooming task with LRAD- progressing ?? Therapy Frequency (OT): 3-5 times/wk Total Minutes, Occupational Therapy: 40 (2 SC) Pager: [phone] Radha Gramajo OT Occupational Therapy Rehabilitation Department Brandi Romano RN - 07/06/2021 3:31 PM EDT Assumed care of patient at 1530. 1740- Patient A&Ox4. VSS. No complaints of pain, chest pain, SOB, or N/V. Fluid restriction maintained. Will continue to monitor. Dexter Emmanuel, PT - 07/06/2021 10:51 AM EDT Physical Therapy Note Treatment Number PT: 4 Patient profile: Betsy Laird is a 75 y.o. male admitted on 06/28/2021 by Teena Armas to [facility] ED with R sided weakness progressed over a month with R foot drop and MRI of brain c/w metastatic brain cancer and referred to [facility]. ??MRI of his lumbar spine which showed multilevel degenerative disease. Vasogenic edema, continue decadron. Seizure-like activity so Neurology placed EEG monitor 06/29: No seizures or epileptiform discharges were observed.?? Imaging showing R hilar lung mass. Surgical consideration pending lung biopsy results. Surgery 06/30 :L frontal and L parietal craniotomy for resection of tumors. Neuro ICU post-op., frozen consistent with non-small cell PMH: CAD s/p 4vCABG ~2019 @ [place], tobacco use disorder in recent remission 5 days ago (58 pk/yr history). Interval History: 07/01 Palliative consult to discuss Dx & care: He's enthusiastic about meeting with the oncology and palliaitve teams at the [facility] in [facility]. He has strong social support, good coping skills, and an excellent understanding of his illness and prognosis. He's agreeable to acute rehab prior to return home for more return R side and independence. Plan for outpatient follow up once pathology results known & definitive diagnosis is establishedto discuss treatment options. Awaiting rehab bed, referrals in place. Social History: Lives alone in [place], [place] in a one level home with stairs & ramp to enter. Ramp has 2 railings. He does have laundry in basement. Bathroom Set-up: cut-out tub shower. Baseline Mobility: Retired, active according to daughters, Independent up until a month ago, out plowing this past winter, drives, grocery shops, manages his own finances, and manages his own home. Equipment at home: walker and wheelchair : he obtained in last month. Fall history: few falls recently with R sided weakness, able to get self up from floor, no injuries. Precautions/Special Considerations: Fall risk, up with assist Regular diet ? Mobility and Positioning Recommendations: ?? Pt. should utilize walker and 1 person assist for ambulation and transfers with nursing. ?? Please encourage up to chair for meal times as able. ?? Pt encouraged to ambulate short distance with staff & getting into the bathroom. ?? Family has new pair of black sneakers here and AFO in R shoe for R foot drop. ?? Recommend he wear R AFO in R shoe for gait but then take it off to avoid any skin problems (off-shelf AFO, not custom made for him). ?? Subjective: I'm so glad my right side is getting stronger. I agree, I need to go to rehab before returning home. I really hope my right foot comes back, I love to ride my motorcycle and that's my foot for the brake! Objective: Patient seen for physical therapy, patient asking if I'd heard any results about his pathology and next course of treatment for the cancer. Encouraged him to keep asking questions and we canpass along to the right team members for answers. Pain: no c/o's Vital Signs: VSS, HR=67 @ rest & SpO2= 96% RA ?? Patient up in recliner chair, agreeable to don AFO & sneakers to walk as he reports he's beenup with nurses to BR but not wearing footwear (only hosp socks). ?? Able to dress lower body: pants, socks, AFO in new sneakers: even able to get AFO & sneakers on himself today: R hand strength improved(dressing from seated position): assist to stand and pull on pants or for other standing ADL's like brushing teeth. ?? Continued dec sensation R yet improving strength daily: able to initiate DF and PF R foot: given ankle [place]'s ex in addition to tapping & pushing up on toes on floor sitting. ?? Sit >< stand: CGA up to walker ?? When he was turning to back up to chair, R LE weak after walk and caught R foot as it wasn't a full swing and turning towards his R so would have fallen without assistance, cont to be a fall risk. ?? Gait: amb using FWW and with AFO in sneaker for R with min A x 1, able to swing R LE much better today, he likes AFO but as R LE fatigues then swing phase of gait worse on R LE. ?? He was reluctant to sit for a rest so stood in place as he wanted to push self and walked twice the distance as last visit but R side fatigued and he would have fallen without assistance. So he's learning his limits and he's use to being independent and walking much faster so agreed he's not ready to be home alone yet. Discussed rehab again & he's agreeable; eager to get back home too! ?? Took off AFO and sneaker to access skin and all intact, no area's of redness, he worked to get AFO & sneaker off and able to perform with great effort since brace slipped out of shoe. ?? Pt agreeable to stay in recliner chair , seat alarm on & needs within reach following visit. Education: patient reminded of Safety and discussed Discharge plana. Reminded to call for staff assistance prior to activity. Discussed d/c as he's eager to return home but did admit he needs rehab stay prior since he had a near-miss fall thanks to having staff assistance. Stressed his safety and no falling. He'd benefit from learning floor transfers @ rehab incase of falls @ home(will add goal). Assessment: Betsy Laird was seen today for physical therapy treatment session for continuation of POC. POD#5 s/p crani for tumor resection, out of Neuro ICU, ready and waiting for acceptance to a rehab facility. He continues to present with deficits in AROM / flexibility, Strength on right, balance and sensation, coordination R side, R foot drop, fall risk. Oncology & Palliative staff following him & he's got a good positive attitude. These impairments currently impact patient's ability to safely and independently perform transfers, ambulation, stair negotiation & daily activities on his own. He lives alone, R hand dominant, and active and independent prior to admit. For all of these reasons, he's an excellent rehab candidate and is motivated to regain strength, return home, and hoping to return to prior level of function. Pt will benefit from ongoing therapeutic interventions to achieve therapy goals. Discharge Recommendations: Based on the current findings, Anticipated Discharge Disposition (PT): acute rehabilitation facilitywhen medically ready for hospital discharge. Consult Recommendations: CM- referrals for acute rehab Equipment needs: Anticipated Equipment Needs at Discharge (PT): to be determined (@ rehab facility (he has walker & w/c @ home)) Physical Therapy Goals: To be achieved by 07-14-21: ONGOING ?? 1. Pt. to demonstrate knowledge of safety precautions by appropriately requesting assistance to mobilize. 2. Pt. to demonstrate understanding of appropriate exercises to help AROM/strength R side. 3. Pt. to perform bed mobility with modified independence.- MET 4. Pt. to perform sit><stand transfers with modified independence and with supervision using afront wheeled walker. 5. Pt. to ambulate 150 feet with modified independence and with supervision using a a front wheeled walker. 6. Pt able to maneuver self in w/c household distances and remember to lock brakes before transfer with modified (I) (back up option when fatigued). 7. Pt learn and perform floor transfers (I) in case of falls @ home and if not injured could get self up again or call for help prn. 8. Pt will tolerate activity progression with stable pain level & vital signs. Plan: Therapy Frequency (PT): 2-4 times/wk for balance training, bed mobility training, gait training, home exercise program, patient/family education, range of motion, stair training, strengthening, stretching and transfer training, wheelchair training, discharge planning. Patient/family understand and agree with plan.. Time IN / OUT: 10:05-10:40 Total Minutes, Physical Therapy: 35 (TE-F x 2) DEXTER EMMANUEL PT Pager: [phone] Physical Therapy Inpatient Rehabilitation Department Juan Garcia RN - 07/06/2021 12:55 AM EDT OUTCOME EVALUATION NOTE: OUTCOME SUMMARY: Pt A+Ox4. VSS on RA. Bradycardic overnight. No complaints of pain. Incision C/D/I RN BIRTHING. Neuro checks unchanged. Voiding in urinal overnight. Pt appears to be resting overnight. PLAN MOVING FORWARD: 1500mL fluid restriction D/C planning Pending bed at rehab ?? INDIVIDUALIZED FALL PREVENTION INTERVENTIONS: ?? Patient-specific fall risk factors per assessment: [current deficits]: Generalized weakness, RLE weakness ?? Assistance [level of assistance required for transfers and ambulation]: 1A w/ walker ?? Supervision [direct monitoring required during toileting and ADLs]: Eyes on ?? Surveillance [continuous indirect monitoring]: Masimo, room near nursing station, call lozano within reach, purposeful rounding ?? Patient-specific fall prevention interventions for sensory deficits provided, if applicable: N/A CPG GOAL OUTCOME EVALUATION: Continue care plan as documented. Benita Leblanc MD - 07/05/2021 7:59 PM EDT [facility] Medicine Attending Daily Progress Note Patient Name: Betsy Laird Service: Hospital Medicine Admit Date: 06/28/2021 Hospital Day: 7 Date of Service: 07/05/2021 Patient Description: Betsy Laird is a 75 y.o. male with pmh significant for CAD s/p CABG, hx of tobacco use who presented with new neurological deficits and has been found to have likely primary lung with brain mets with vasogenic edema. He had a craniotomy performed on 06/30 by Neurosurgery and prelim biopsy report shows that the patient has NSCLC. Neurosurgery recommending whole brain radiation. Onc, Rad Onc, and Palliative Care have been consulted with plan for outpatient follow up to discuss treatment options. ASSESSMENT AND PLAN Active Problems: Active Hospital Problems Diagnosis ??? 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 Hyponatremia ??? Hyperglycemia ??? Non-small cell carcinoma of lung ??? Cigarette nicotine dependence with withdrawal ??? CAD (coronary artery disease), HLD Resolved Hospital Problems No resolved problems to display. Non-small cell carcinoma of lung He has evidence of a right hilar mass on CT scan that could be suggestive of primary lung malignancy. Evidence of metastasis to the brain; biopsy obtained during craniotomy. Preliminary path results show NSCLC. 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 MRI showing multiple bilateral intracranial lesions; largest lesion is in the left frontal lobe with surrounding vasogenic edema. Imaging is most consistent with metastasis and patient has concurrent hilar mass which is the likely primary malignancy. Neurosurgery has been consulted and performed debulking procedure/craniotomy on 06/30, prelimbiopsy on frozen section was NSCLC. Have consulted oncology, radiation oncology, and palliative care who have all evaluated patient and plan for outpatient follow up once definitive diagnosis is established to discuss treatment options. He will also need outpatient neurology follow up for seizure. Continues to have gradual improvement in R sided weakness. PT/OT recommended acute rehab on discharge. He is medically ready pending bed availability. PLAN -Appreciate Neurosurgery/Onc/Rad Onc/Palliative Care consults -Maintain SBP < 160 -SQH ok per neurosurgery -Resume home ASA 2 weeks post op (07/14) -Decadron taper per Neurosurgery recommendations, starting 07/02: 4mg BIDx3d, 2mg BIDx3d, 1mg BIDx3d,1mg QDx3d, stop -GI ppx while on steroids -Continue keppra 1000 mg BID -Q shift neuro checks -Target eunatremia post craniotomy -PT/OT, recommend acute rehab -F/u with Neurosurgery on 08/02/21 -Will also have f/u with Onc, Rad Onc, Palliative Care, and Neurology Cigarette nicotine dependence with withdrawal Patient has chronic nicotine dependence, quit smoking several days prior to admission. PLAN -Recommend cessation and abstinence -Nicotine patch CAD (coronary artery disease), HLD CAD s/p CABG in 2019. No acute issues. PLAN -Hold ASA per neurosurgery; okay to resume 2 weeks post op (07/14) -Continue Atorvastatin and BB Hyperglycemia In setting of dexamethasone administration. PLAN -Started on ISS while in neuro icu s/p craniotomy for close glucose management, continue while on steroids -HgbA1c 5.5 -Do not anticipate insulin requirement on discharge Hyponatremia Post operative hyponatremia. Na recovered to 136 but now down trending to 130. PLAN -Target eunatremia post craniotomy per NSGY -Urine studies c/w SIADH -Fluid restrict 1500 mL -Continue NaCl tabs 1g TID, taper over 1-2 weeks -Trend BMP q12h until Na > 134, then daily # Routine: - Prophylaxis: DVT: SQH GI: PPI Glycemic control: As above - Nutrition: Regular diet 1500 mL FLUID - Code Status: Attempt Cardiopulmonary Resuscitation - Inpatient - Family Communication: Update daughters -Disposition: Medically ready for discharge to acute rehab. SUBJECTIVE Major 24 Hour Events: -Na 136 -> 130 -Urine Na 98, osms 1,039 Patient was evaluated and examined at bedside. He feels well without complaints. Agreeable to plan for d/c to rehab and hopeful for quick recovery of R sided weakness. His daughter and son-in-law live nearby and can provide assistance when he goes home. Right ankle feels stronger today and pleased that he was able to walk yesterday with assistance. Denies fever, chills, headache, dyspnea, n/v, confusion. OBJECTIVE BP 135/70 (BP Location (NBP): Right arm, Patient Position: Lying) Pulse 57 Temp 36.7 ??C (98 ??F) (Oral) Resp 16 Ht 177.8 cm (5' 10) Wt 75.8 kg (167 lb 1.7 oz) SpO2 92% BMI 23.98 kg/m?? Temp (24hrs), Av.6 ??C (97.8 ??F), Min:36.5 ??C (97.7 ??F), Max:36.7 ??C (98 ??F) Intake/Output Summary (Last 24 hours) at 07/05/20212004 Last data filed at 07/05/2021 1749 Gross per 24 hour Intake 390 ml Output 1410 ml Net -1020 ml Vitals: Last Value Range Last 24 hrs Temperature Temp: 36.7 ??C (98 ??F) Temp: [36.5 ??C (97.7 ??F)-36.7 ??C (98 ??F)] Heart Rate Heart Rate: 57 Heart Rate: [57] Blood Pressure BP: 135/70 BP: (132-145)/(70-71) Respiratory Rate Resp: 16 Resp: [16-18] SpO2 SpO2: 92 % SpO2: [92 %-94 %] Weight: Last: 75.8 kg (167 lb 1.7 oz) I/Os: 07/04 0701 - 07/05 0700 In: 240 [P.O.:240] Out: 1500 [Urine:1500] Admit: 77.11 kg Physical Exam Constitutional: General: He is not in acute distress. Appearance: He is not toxic-appearing or diaphoretic. Comments: Sitting upright in bed, appears comfortable, awake and conversant. HENT: Head: Normocephalic and atraumatic. Comments: Craniotomy incisions over scalp c/d/i. No erythema. Nose: No congestion. Mouth/Throat: Mouth: Mucous membranes are moist. Pharynx: No oropharyngeal exudate. Eyes: General: No scleral icterus. Extraocular Movements: Extraocular movements intact. Pupils: Pupils are equal, round, and reactive to light. Cardiovascular: Rate and Rhythm: Normal rate and regular rhythm. Heart sounds: Normal heart sounds. No murmur heard. Pulmonary: Effort: Pulmonary effort is normal. No respiratory distress. Breath sounds: Normal breath sounds. No stridor. No wheezing, rhonchi or rales. Comments: Good air entry b/l. Abdominal: General: Abdomen is flat. Bowel sounds are normal. There is no distension. Palpations: Abdomen is soft. Tenderness: There is no abdominal tenderness. There is no guarding. Musculoskeletal: General: No swelling or deformity. Normal range of motion. Right lower leg: No edema. Left lower leg: No edema. Skin: General: Skin is warm and dry. Coloration: Skin is not jaundiced or pale. Findings: No bruising, erythema, lesion or rash. Neurological: Mental Status: He is alert and oriented to person, place, and time. Cranial Nerves: No cranial nerve deficit. Sensory: No sensory deficit. Motor: Weakness present. Comments: Alert, oriented, speech intact, R upper and lower extremity weakness with interval improvement in upper extremity strength and strength of R ankle Psychiatric: Mood and Affect: Mood normal. Behavior: Behavior normal. LABS CBC: Recent Labs 07/05/21 0600 07/04/21 0628 07/03/21 0042 WBC 13.9* 12.7* 12.3* HGB 13.1* 13.5* 12.7* PLATELET 344 335 292 BMP: Recent Labs 07/05/21 1841 07/05/21 0600 07/04/21 1258 NA 131* 130* 136 K 4.5 4.7 4.6 CL 97* 96* 98 CO2 22 23 26 BUN 23* 24* 25* CREATININE 0.94 0.76* 1.08 GLUCOSE 133 114 144 Calcium, Magnesium, Phosphate: Recent Labs 07/05/21 1841 07/05/21 0600 07/04/21 1258 07/04/21 0628 07/03/21 1158 07/03/21 0042 CALCIUM 8.3* 8.5 8.9 8.8 < > 8.3* MAGNESIUM -- 0.89 -- 0.92 -- 0.87 PHOS -- 3.3 -- 3.3 -- 2.3* < > = values in this interval not displayed. LFTs: No results for input(s): AST, ALT, ALKPHOS, BILITOT, BILIDIR in the last 168 hours. Troponin: No results for input(s): TROPONINT, CK in the last 168 hours. ABG: No results for input(s): PHART, HEO9CRS, PO2ART, UWA9PVJ in the last 168 hours. Coags: Recent Labs 06/28/21 2138 PT 12.3 PTT 33 INR 1.1 MICRO Microbiology Results (Last 30 days) Procedure Component Value Units Date/Time COVID-19 PCR [[id number]] Collected: 07/05/21 1322 Lab Status: Final result Specimen: Nasopharyngeal Swab Updated: 07/05/21 1616 SARS-CoV-2 RNA PCR Not Detected Comment: This [...] using the Simplexa COVID-19 Direct Assay by Kivo as authorized by the FDA issued Emergency [...] Department of Pathology and Laboratory Medicine at [facility], certified under the Clinical Laboratory [...] fact sheets at the following FDA website: https://www.fda.gov/medical-devices/ennqephdmpp-vcrvwrn-6541-xompd-70-tjouaskaa- pvs-vwqxrztvnwfcmh-lmvuoxm-devices/alujg-qxxvpbtvjtp-gvyo SARS-CoV-2 Source SPACE TECHNOLOGIST Swab COVID-19 PCR [[id number]] Collected: 06/28/212102 Lab Status: Final result Specimen: Nasopharyngeal Swab Updated: 06/28/212353 SARS-CoV-2 RNA PCR Not Detected Comment: This [...] using the Simplexa COVID-19 Direct Assay by Kivo as authorized by the FDA issued Emergency [...] Department of Pathology and Laboratory Medicine at [facility], certified under the Clinical Laboratory [...] fact sheets at the following FDA website: https://www.fda.gov/medical-devices/kfbftislxin-ewqwngl-1607-eqmze-58-fsixufrgg- kei-hahlkxjlmevdxv-iluojmi-devices/aopca-iozdsadgcgt-mxaj SARS-CoV-2 Source SPACE TECHNOLOGIST Swab RECENT IMAGING None in past 24 hours. Signed: Benita Leblanc MD 07/05/2021 8:05 PM Hospital Medicine Team Pager: [phone] IPI Certification I certify that I am a D-H credentialed attending provider with admitting privileges and that the patient meets or has met medical necessity to require an inpatient IPI level of care meeting a minimum of two midnights or is on the [facility] inpatient only procedure list (status C) due to: Vasogenic edema with metastatic malignancy, seizure disorder, and neurological deficits requiring ongoing EEG monitoring, and surgical intervention of brain malignancy Brandy Swain RN - 07/05/2021 3:50 PM EDT OUTCOME EVALUATION NOTE: OUTCOME SUMMARY: Patient A/OX4, VSS, no complaints of pain. Able to ambulate to BR 1A w/ walker. Neuro check unchanged. COVID test completed and patient waiting for rehab bed. No further events occurred. Will continue to monitor. PLAN MOVING FORWARD: D/C planning Pending bed at rehab INDIVIDUALIZED FALL PREVENTION INTERVENTIONS: Patient-specific fall risk factors per assessment: [current deficits]: Generalized weakness, RLE weakness Assistance [level of assistance required for transfers and ambulation]: 1A w/ walker Supervision [direct monitoring required during toileting and ADLs]: Eyes on Surveillance [continuous indirect monitoring]: Masimo, room near nursing station, call lozano within reach, purposeful rounding Patient-specific fall prevention interventions for sensory deficits provided, if applicable: [X] N/A CPG GOAL OUTCOME EVALUATION: Lakeshia Mckee - 07/05/2021 2:11 AM EDT OUTCOME EVALUATION NOTE: OUTCOME SUMMARY: Pt A&Ox4 and VSS on RA; intermittently bradycardic down to 44/min when sleeping. Pt denies chestpain, SOB, numbness/tingling. Pt tolerating regular diet w/out complaints of N/V. Saline locked PIV patent. Pt did not ambulate during shift. Cranial incisions remain open to air, CDI. AUOP via urinal/BR, no c/o pain. Pt has not moved bowels over this shift. Pt able to rest between care. Will continueto monitor. PLAN MOVING FORWARD: Monitor Pain, Monitor I&O, Encourage Ambulation, Monitor PO tolerance, Maintain Safety, Discharge Planning INDIVIDUALIZED FALL PREVENTION INTERVENTIONS: Patient-specific fall risk factors per assessment: [current deficits]: Mobility aid at home, Historyof falls, Needs assistance getting out of bed or chair, Pain with movement/ambulation, generalized weakness Assistance [level of assistance required for transfers and ambulation]: 1x w/ FWW Supervision [direct monitoring required during toileting and ADLs]: Hands on Surveillance [continuous indirect monitoring]: Purposeful rounding, Bed/Chair alarm activated, Bed in the lowest position, call light and belongings within reach, room near nurses station Patient-specific fall prevention interventions for sensory deficits provided, if applicable: [X] YesGlasses, Light adjusted for task/safety, Non-skid shoes/slippers CPG GOAL OUTCOME EVALUATION: Benita Leblanc MD - 07/04/2021 5:29 PM EDT [facility] Medicine Attending Daily Progress Note Patient Name: Betsy Laird Service: Hospital Medicine Admit Date: 06/28/2021 Hospital Day: 6 Date of Service: 07/04/2021 Patient Description: Betsy Laird is a 75 y.o. male with pmh significant for CAD s/p CABG, hx of tobacco use who presented with new neurological deficits and has been found to have likely primary lung with brain mets with vasogenic edema. He had a craniotomy performed on 06/30 by Neurosurgery and prelim biopsy report shows that the patient has NSCLC. Neurosurgery recommending whole brain radiation. Onc, Rad Onc, and Palliative Care have been consulted with plan for outpatient follow up to discuss treatment options. ASSESSMENT AND PLAN Active Problems: Active Hospital Problems Diagnosis ??? 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 Hyponatremia ??? Hyperglycemia ??? Non-small cell carcinoma of lung ??? Cigarette nicotine dependence with withdrawal ??? CAD (coronary artery disease), HLD Resolved Hospital Problems No resolved problems to display. Non-small cell carcinoma of lung He has evidence of a right hilar mass on CT scan that could be suggestive of primary lung malignancy. Evidence of metastasis to the brain; biopsy obtained during craniotomy. Preliminary path results show NSCLC. 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 MRI showing multiple bilateral intracranial lesions; largest lesion is in the left frontal lobe with surrounding vasogenic edema. Imaging is most consistent with metastasis and patient has concurrent hilar mass which is the likely primary malignancy. Neurosurgery has been consulted and performed debulking procedure/craniotomy on 06/30, prelimbiopsy on frozen section was NSCLC. Have consulted oncology, radiation oncology, and palliative care who have all evaluated patient and plan for outpatient follow up once definitive diagnosis is established to discuss treatment options. He will also need outpatient neurology follow up for seizure. Continues to have gradual improvement in R sided weakness. PT/OT recommended acute rehab on discharge. He is medically ready. PLAN -Appreciate Neurosurgery/Onc/Rad Onc/Palliative Care consults -Maintain SBP < 160 -SQH ok per neurosurgery -Resume home ASA 2 weeks post op (07/14) -Decadron taper per Neurosurgery recommendations, starting 07/02: 4mg BIDx3d, 2mg BIDx3d, 1mg BIDx3d,1mg QDx3d, stop -GI ppx while on steroids -Continue keppra 1000 mg BID -Pain control post craniotomy -Bowel regimen PRN -Q shift neuro checks -Target eunatremia, continue NaCl tabs 1g TID, taper over 1-2 weeks -PT/OT, recommend acute rehab -F/u with Neurosurgery on 08/02/21 -Will also have f/u with Onc, Rad Onc, Palliative Care, and Neurology Cigarette nicotine dependence with withdrawal Patient has chronic nicotine dependence, quit smoking several days prior to admission. PLAN -Recommend cessation and abstinence -Nicotine patch CAD (coronary artery disease), HLD CAD s/p CABG in 2019. No acute issues. PLAN -Hold ASA per neurosurgery; okay to resume 2 weeks post op (07/14) -Continue Atorvastatin and BB Hyperglycemia In setting of dexamethasone administration. PLAN -Started on ISS while in neuro icu s/p craniotomy for close glucose management, continue while on steroids -HgbA1c 5.5 -Do not anticipate insulin requirement on discharge Hyponatremia Post operative hyponatremia with Na zoltan 132, started on NaCl tabs and today improved to 136. PLAN -Target eunatremia per NSGY -Continue NaCl tabs 1g TID, taper over 1-2 weeks -Space BMP to daily, then every other day if Na stable # Routine: - Prophylaxis: DVT: SQH GI: PPI Glycemic control: As above - Nutrition: Regular diet - Code Status: Attempt Cardiopulmonary Resuscitation - Inpatient - Family Communication: Update daughters -Disposition: Medically ready for discharge to acute rehab. SUBJECTIVE Major 24 Hour Events: -No acute events Patient was evaluated and examined at bedside. Feels overall without complaints. Coping as well as can be expected. Notes improvement in right upper extremity strength today. Denies chest pain, dyspnea, fever, chills, headache, vision changes, new numbness/weakness. Agreeable to rehab on discharge. OBJECTIVE BP 147/74 (BP Location (NBP): Right arm, Patient Position: Sitting) Pulse 66 Temp 36.2 ??C (97.2??F) (Oral) Resp 16 Ht 177.8 cm (5' 10) Wt 75.8 kg (167 lb 1.7 oz) SpO2 93% BMI 23.98 kg/m?? Temp (24hrs), Av.4 ??C (97.6 ??F), Min:36.2 ??C (97.2 ??F), Max:36.6 ??C (97.9 ??F) Intake/Output Summary (Last 24 hours) at 07/04/2021 1737 Last data filed at 07/04/2021 1700 Gross per 24 hour Intake 340 ml Output 850 ml Net -510 ml Vitals: Last Value Range Last 24 hrs Temperature Temp: 36.2 ??C (97.2 ??F) Temp: [36.2 ??C (97.2 ??F)-36.6 ??C (97.9 ??F)] Heart Rate Heart Rate: 66 Heart Rate: [57-66] Blood Pressure BP: 147/74 BP: (121-175)/(61-98) Respiratory Rate Resp: 16 Resp: [12-16] SpO2 SpO2: 93 % SpO2: [90 %-94 %] Weight: Last: 75.8 kg (167 lb 1.7 oz) I/Os: 07/03 0701 - 07/04 0700 In: 600 [P.O.:600] Out: 900 [Urine:900] Admit: 77.11 kg Physical Exam Constitutional: General: He is not in acute distress. Appearance: He is not toxic-appearing or diaphoretic. HENT: Head: Normocephalic and atraumatic. Comments: Craniotomy incisions over scalp c/d/i. No erythema. Nose: No congestion. Mouth/Throat: Mouth: Mucous membranes are moist. Pharynx: No oropharyngeal exudate. Eyes: General: No scleral icterus. Extraocular Movements: Extraocular movements intact. Pupils: Pupils are equal, round, and reactive to light. Cardiovascular: Rate and Rhythm: Normal rate and regular rhythm. Heart sounds: Normal heart sounds. No murmur heard. Pulmonary: Effort: Pulmonary effort is normal. No respiratory distress. Breath sounds: Normal breath sounds. No stridor. No wheezing, rhonchi or rales. Comments: Good air entry b/l. Abdominal: General: Abdomen is flat. Bowel sounds are normal. There is no distension. Palpations: Abdomen is soft. Tenderness: There is no abdominal tenderness. There is no guarding. Musculoskeletal: General: No swelling or deformity. Normal range of motion. Right lower leg: No edema. Left lower leg: No edema. Skin: General: Skin is warm and dry. Coloration: Skin is not jaundiced or pale. Findings: No bruising, erythema, lesion or rash. Neurological: Mental Status: He is alert and oriented to person, place, and time. Cranial Nerves: No cranial nerve deficit. Sensory: No sensory deficit. Motor: Weakness present. Comments: Alert, oriented, speech intact, right upper and lower extremity weakness with interval improvement in upper extremity strength. Psychiatric: Mood and Affect: Mood normal. Behavior: Behavior normal. LABS CBC: Recent Labs 07/04/21 0628 07/03/21 0042 07/02/21 0210 WBC 12.7* 12.3* 13.2* HGB 13.5* 12.7* 12.3* PLATELET 335 292 313 BMP: Recent Labs 07/04/21 1258 07/04/21 0628 07/03/21 1158 NA 136 135 134* K 4.6 5.0 4.3 CL 98 99 98 CO2 26 24 25 BUN 25* 22* 24* CREATININE 1.08 0.85 0.89 GLUCOSE 144 118 108 Calcium, Magnesium, Phosphate: Recent Labs 07/04/21 1258 07/04/21 0628 07/03/21 1158 07/03/21 0042 07/02/21 1152 07/02/21 0210 CALCIUM 8.9 8.8 8.5 8.3* < > 8.3* MAGNESIUM -- 0.92 -- 0.87 -- 0.87 PHOS -- 3.3 -- 2.3* -- 3.0 < > = values in this interval not displayed. LFTs: No results for input(s): AST, ALT, ALKPHOS, BILITOT, BILIDIR in the last 168 hours. Troponin: No results for input(s): TROPONINT, CK in the last 168 hours. ABG: No results for input(s): PHART, AYP8EHA, PO2ART, BMF6TBG in the last 168 hours. Coags: Recent Labs 06/28/212137 PT 12.3 PTT 33 INR 1.1 MICRO Microbiology Results (Last 30 days) Procedure Component Value Units Date/Time COVID-19 PCR [[id number]] Collected: 06/28/212102 Lab Status: Final result Specimen: Nasopharyngeal Swab Updated: 06/28/212353 SARS-CoV-2 RNA PCR Not Detected Comment: This [...] diagnosis of COVID-19 is performed using the [place] COVID-19 Direct Assay by Kivo as authorized by the FDA issued Emergency [...] Department of Pathology and Laboratory Medicine at [facility], certified under the Clinical Laboratory [...] fact sheets at the following FDA website: https://www.fda.gov/medical-devices/fxgnkqjhvsh-uyrywjt-1716-sckzg-56-byjnyrpka- fpx-krslkfmgatbjcq-ximozdy-devices/nrwze-oqqonguugsn-fvnx SARS-CoV-2 Source SPACE TECHNOLOGIST Swab RECENT IMAGING None in past 24 hours. Signed: Benita Leblanc MD 07/04/2021 5:37 PM Hospital Medicine Team Pager: [phone] IPI Certification I certify that I am a D-H credentialed attending provider with admitting privileges and that the patient meets or has met medical necessity to require an inpatient IPI level of care meeting a minimum of two midnights or is on the [facility] inpatient only procedure list (status C) due to: Vasogenic edema with metastatic malignancy, seizure disorder, and neurological deficits requiring ongoing EEG monitoring, and surgical intervention of brain malignancy Andrew Monroe MD - 07/04/2021 5:24 PM EDT [facility] Neurosurgery Brief Update Sodium stabilized now eunatremic x2. Recs: -Can resume home ASA 2 wks post op -[place] due 2 wks post op -Cont salt tabs for now can wean over the next 1-2 wks -Can wean checking Na to daily or every other day -Follow up as schedule below with us Future Appointments Date Time Provider Department Center 08/02/2021 11:00 AM Estefania Justice MD [facility] [id number] [facility] Consult service will continue to follow patient. ??X We're signing off. Recommendations above, page if further consultation required. Neurosurgery Pager: [phone] Andrew Monroe MD 07/04/2021 5:24 PM Radha Gramajo OT - 07/04/2021 4:51 PM EDT Occupational Therapy Treatment Note Treatment Number OT: 3 ?? Patient profile: Per MD: Betsy Laird is a 75 y.o. male right-handed on ASA81 (has not taken for a few days) with PMH tobacco use, CAD s/p CABG, who presented to OSH with 3-4 week history of initially RIGHT lower extremity weakness, inability to ambulate without assistance x1 week, and approximately 5day history of RIGHT upper extremity weakness. ??MRI exhibited multiple bilateral intracranial lesions, the largest of which are in the LEFT frontal lobe with surrounding vasogenic edema concerning formetastases given a R hilar lung mass as well. ?? 06/30, Dr. Justice: Left frontal/parietal craniotomies for tumor resections (FS = NSCLC) Past Medical History No past medical history on file. Past Surgical History No past surgical history on file. ?? Social History: Patient lives alone in a house in [place], [place] with his dog Home Setup: Pt reports that he has a ramp to enter with bilateral rails. Pt has one level home with a basement. Pt reports that he sleeps on the sofa at times. Pt has a tub/shower combo with GB. DME: Walker, wheelchair Baseline ADL/Mobility: Prior to admission; Pt was independent with ADL routines, transfers and IADL routines until ~2 weeks ago when Pt having difficulty with R hemibody. Pt reports that he started using FWW and wheelchair. Pt reports ~2 falls recently. 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 Pt daughter Antonina, lives farther away, but is supportive. ?? Precautions/Special Considerations: Full code, up with assistance, NPO, at risk for falls, SBP <160 Interval History: non-significant S: My arm is much better O: Patient seen for skilled OT treatment, and demonstrated the following: ?? Self-care: ?? Pt supervision for doffing socks ?? Pt min A for donning hospital pants; cues for sequencing and to dressing RLE ?? Pt min A for donning L shoe; able to tie ?? Pt mod A for donning R shoe with new AFO and depednent for tying ?? Functional Mobility: ?? Pt CGA for sit to stand transfer from recliner chair ?? Pt CGA for ambulating with FWW ?? Pt requiring assistance for walker management; Pt initially attempting to lift walker and benefited from therapist guiding walker ~80 ft ?? Cues to advance RLE increased gait speed, but Pt noted to fatigue, R knee buckling ?? Pt left up in recliner chair with all needs within reach at end of session ?? Pt then requesting to return to bed CGA; left with bed alarm active ?? Cognition: ?? Behavior / Mood: alert and cooperative ?? Alert and oriented to: person, place, time and situation ?? Follows commands: 2 step and 100% of the time ?? Attention: WFL ?? Safety awareness: decreased insight into deficits ?? Pt noted with mild dysarthria when speaking quickly ?? Vision: Glasses time clock inspector ?? Vitals: Within parameters ?? Strength/ROM: ?? RUE 4-/5; increased functional use, but continues with difficulty with honing machine set up operator tool at times ?? LUE 5/5 Pain: No reports of pain Education: Pt/family/caregiver education ongoing regarding: Role of occupational therapy/rehabilitation, Transfers, Assistive device/technique, ADL, Positioning, Safety, Functional Mobility, Balance, Recommendations and Discharge planning. Staff Communication: Patient status, treatment, and mobility recommendations discussed with nursing/other staff. ASSESSMENT: Pt seen for OT services in conjunction with PT. He was noted with increased use of RUE. Pt educated on activities to perform to assist with RUE strengthening. He participated in dressing routines and ambulation. Pt continues with decreased ability to perform ADL and transfer routines, but with improvement from initial evaluation. Continue to recommend acute rehab to maximize functional outcomes. Pt will benefit from ongoing therapeutic interventions to achieve pt's and therapy goals Anticipated Discharge Disposition (OT): acute rehabilitation facility Equipment Recommendations: Other Recommendations: ?? Utilize upright chair position using bed features or transfer to recliner chair as appropriate with min Ax2 with FWW, ambulate as tolerated ?? Encourage participation in ADL's by providing set up A on tray table and physical assist only as needed Goals: To be achieved by 07/09/21. 1. Pt will be min A for LB dressing routines with AE as needed at seated/standing levels 2. Pt will be min Ax1 for toileting routine at ambulatory level with LRAD 3. Pt will be min A for UB dressing routines 4. Pt will be independent for HEP for BUEs 5. Pt will be able to stand for 8 minutes to perform sink level grooming task with LRAD?? Goals in progress ?? Therapy Frequency (OT): 3-5 times/wk Total Minutes, Occupational Therapy: 32 (2 SC) Pager: [phone] Radha Gramajo OT Occupational Therapy Rehabilitation Department Dexter Emmanuel, PT - 07/04/2021 4:24 PM EDT Physical Therapy Note Treatment Number PT: 3 Patient profile: Betsy Laird is a 75 y.o. male admitted on 06/28/2021 by Teena Armas to [facility] ED with R sided weakness progressed over a month with R foot drop and MRI of brain c/w metastatic brain cancer and referred to [facility]. ??MRI of his lumbar spine which showed multilevel degenerative disease. Vasogenic edema, continue decadron. Seizure-like activity so Neurology placed EEG monitor 06/29: No seizures or epileptiform discharges were observed.?? Imaging showing R hilar lung mass. Surgical consideration pending lung biopsy results. Surgery 06/30 :L frontal and L parietal craniotomy for resection of tumors. Neuro ICU post-op., frozen consistent with non-small cell PMH: CAD s/p 4vCABG ~2018 @ [facility], tobacco use disorder in recent remission 5 days ago (58 pk/yr history). Interval History: 07/01 Palliative consult to discuss Dx & care: He's enthusiastic about meeting with the oncology and palliaitve teams at the [facility] in [facility]. He has strong social support, good coping skills, and an excellent understanding of his illness and prognosis. He's agreeable to acute rehab prior to return home for more return R side and independence. Social History: Lives alone in [place], [place] in a one level home with stairs & ramp to enter. Ramp has 2 railings. He does have laundry in basement. Bathroom Set-up: cut-out tub shower. Baseline Mobility: Retired, active according to daughters, Independent up until a month ago, out plowing this past winter, drives, grocery shops, manages his own finances, and manages his own home. Equipment at home: walker and wheelchair : he obtained in last month. Fall history: few falls recently with R sided weakness, able to get self up from floor, no injuries. Precautions/Special Considerations: Fall risk, up with assist SBP< 160, Regular diet ? Mobility and Positioning Recommendations: ?? Pt. should utilize walker and 2 person assist for ambulation and transfers with nursing. ?? Please encourage up to chair for meal times as able. ?? Pt encouraged to ambulate short distance with staff & getting into the bathroom. ?? Family will bring in footwear and then will give him an AFO for R foot drop. ?? Subjective: This brace is wonderful, what a difference. [Discussed checking skin after using bracein sneaker to walk to assure no pressure sores since he has diminished sensation R]. Objective: Patient seen for physical therapy, daughter visiting, both asking good questions and demonstrated the following: Pain: denies Vital Signs: HR=68 SpO2=95% RA IW=617/75 ?? Patient up in recliner chair, daughter visiting. He reports feeling good, been moving w/ nurses over weekend. ?? Able to dress lower body: pants, socks, AFO in new sneakers (daughter brought in). Cues to dress R first. ?? Continued dec sensation R but R side looking stronger today: able to initiate DF and PF R foot (which he couldn't last week): given tapping/pushing on toes : he's agreeable to work on ankle DF/PF motion on his own. ?? Sit >< stand: CGA up to walker ?? Gait: amb using FWW and with AFO in sneaker for R 40' and same distance back after break with Timo x 1. ?? R foot clearance improved with AFO until he fatigued as the further distance he went then struggling to flex knee and hip so requires rest but did like the brace and agreeable to keep using. Hopefully AFO temporary as he's got some return to mm's of R ankle. ?? Took off AFO and sneaker to access skin and all intact, no area's of redness ?? Pt asked to get back to bed. Moved from chair to bed with walker and min A x 1, able to lift his R LE up into bed on his own, bed alarm on & needs within reach following visit. Education: patient reminded of Safety , Role of therapy and Discharge planning. Reminded to call forstaff assistance before moving & encouraged continued OOB activity. Assessment: Betsy Laird was seen today for physical therapy treatment session for continuation of POC. POD#3 s/p crani for tumor resection, now moved out of Neuro ICU. He continues to present with deficits in AROM / flexibility, Strength on right, balance and sensation, coordination R side, R foot drop,fall risk. Oncology & Palliative staff in to speak with him & he's got a good positive attitude. These impairments currently impact patient's ability to safely and independently perform bed mobility, transfers, ambulation, stair negotiation & daily activities on his own. He lives alone, R hand dominant, and active and independent prior to admit. For all of these reasons, he's an excellentrehab candidate and is motivated to regain strength. Pt will benefit from ongoing therapeutic interventions to achieve therapy goals. Discharge Recommendations: Based on the current findings, Anticipated Discharge Disposition (PT): acute rehabilitation facilitywhen medically ready for hospital discharge. Consult Recommendations: CM- referrals for acute rehab Equipment needs: Anticipated Equipment Needs at Discharge (PT): to be determined (@ rehab facility) Physical Therapy Goals: To be achieved by 07-14-21: ?? 1. Pt. to demonstrate knowledge of safety precautions by appropriately requesting assistance to mobilize. 2. Pt. to demonstrate understanding of appropriate exercises to help AROM/strength R side. 3. Pt. to perform bed mobility with modified independence. 4. Pt. to perform sit><stand transfers with modified independence and with supervision using afront wheeled walker. 5. Pt. to ambulate 50 feet with modified independence and with supervision using a a front wheeled walker. 6. Pt able to maneuver self in w/c household distances and remember to lock brakes before transfer with modified (I). 7. Pt will tolerate activity progression with stable pain level & vital signs. Plan: Therapy Frequency (PT): 2-4 times/wk for balance training, bed mobility training, gait training, home exercise program, patient/family education, range of motion, stair training, strengthening, stretching and transfer training, wheelchair training, discharge planning. Patient/family understand and agree with plan.. Time IN / OUT: 3-3:35 Total Minutes, Physical Therapy: 35 (TE-F x 2) DEXTER EMMANUEL PT Pager: [phone] Physical Therapy Inpatient Rehabilitation Department Maranda Teresa RN - 07/04/2021 3:40 PM EDT Based on discussions with the multi-disciplinary healthcare team, the patient would benefit from acute rehab level of care at discharge. I have met with the patient to discuss discharge planning needs. I have provided the [facility], Office ofCare Management letter from the Home School Coordinator pertaining to rehab referrals. If patient chooses any or our affiliates, I will provide a letter describing our affiliations within the [facility]. I have provided information on the right to choose where referrals are placed. I reviewed the different levels of rehab including SNF, swing, acute and LTAC. I provided a list with quality rating from Medicare.gov of facilities from within the preferred geographic area. I have requested that the patient provide at least three choices for referral. The patient requested referrals to: 1. [address] [address] 2. [facility] PHONE: [phone] FAX: [phone] Nurse to Nurse report: [phone] [address] [place] [address] 3. [facility]) [address] [place] [address] PHONE: [phone] FAX: [phone] Expected date of discharge: TBD Note routed to Video Surveillance Technician who will communicate referrals to facilities and provide any required information. Andrew Monroe MD - 07/04/2021 6:30 AM EDT NEUROSURGERY PROGRESS NOTE ID: Betsy Laird is a 75 y.o. male right-handed on ASA81 (has not taken for a few days) with PMH tobaccouse, CAD s/p CABG, who presented to OSH with 3-4 week history of initially RIGHT lower extremity weakness, inability to ambulate without assistance x1 week, and approximately 5 day history of RIGHT upper extremity weakness. MRI exhibited multiple bilateral intracranial lesions, the largest of which are in the LEFT frontal lobe with surrounding vasogenic edema concerning for metastases given a R hilarlung mass as well. 06/30, Dr. Justice: Left frontal/parietal craniotomies for tumor resections (FS = NSCLC) INTERVAL Hx: -ABY MEDICATIONS: Scheduled Meds: ??? polyethylene glycoL (MIRALAX) oral powder 17 g Oral Daily ??? dexamethasone 4 mg Oral 2 times per day Followed by ??? [START ON 07/05/2021] dexamethasone 2 mg Oral 2 times per day Followed by ??? [START ON 07/08/2021] dexamethasone 1 mg Oral 2 times per day Followed by ??? [START ON 07/11/2021] dexamethasone 1 mg Oral Daily ??? heparin (porcine) 5,000 Units Subcutaneous Q8H CORIN ??? sodium chloride 1 g Oral TID ??? insulin lispro 1-4 Units Subcutaneous Q4H CORIN ??? metoprolol tartrate 12.5 mg Oral Q8H CORIN ??? sodium chloride 0.9 % (flush) 5 mL Intravenous BID ??? levETIRAcetam 1,000 mg Oral BID ??? nicotine 1 patch Transdermal Daily And ??? Patch Verification 1 patch Transdermal BID And ??? nicotine 1 patch Transdermal Daily ??? atorvastatin 80 mg Oral QPM ??? pantoprazole EC 40 mg Oral Daily Continuous Infusions: PRN: senna-docusate, 2 tablet, BID PRN labetaloL, 10-20 mg, Q15 Min PRN glucose 40% oral geL, 15-30 g, Q30 Min PRN Or dextrose 10%, 250 mL, Q30 Min PRN Or glucagon, 1 mg, Q30 Min PRN sodium chloride 0.9 % (flush), 5-20 mL, Q1 Min PRN acetaminophen, 975 mg, Q8H PRN calcium carbonate, 500 mg, TID PRN EXAM: Temp: [36.5 ??C (97.7 ??F)-36.6 ??C (97.9 ??F)] Heart Rate: [57-66] Resp: [12-16] BP: (121-175)/(61-98) SpO2: [90 %-94 %] Heart Rate from SpO2: [57 bpm-76 bpm] I/O: Intake/Output Summary (Last 24 hours) at 07/04/2021 1541 Last data filed at 07/04/2021 0740 Gross per 24 hour Intake 350 ml Output 1150 ml Net -800 ml GEN:NAD NEURO: AA+Ox3 Speech fluent and appropriate. Naming and repetition intact. PERRL. EOMI. Visual sherwood full to confrontation. No facial asymmetry Tongue midline MOTOR: RUE: 4+/5 LUE:5/5 RLE: 4+/5 except DF, EHL, and PF 4-/5 LLE: 5/5 Numbness in RUE and RLE (improved) Sensation intact in L side Incisions intact (kedar in place) LABS: Recent Labs 07/04/21 0628 07/03/21 0042 07/02/21 0210 WBC 12.7* 12.3* 13.2* HGB 13.5* 12.7* 12.3* PLATELET 335 292 313 Recent Labs 07/04/21 1258 07/04/21 0628 07/03/21 1158 NA 136 135 134* K 4.6 5.0 4.3 CL 98 99 98 CO2 26 24 25 BUN 25* 22* 24* CREATININE 1.08 0.85 0.89 No results for input(s): PT, INR in the last 72 hours. IMAGING: None new Assessment: 75 y.o. male right-handed on ASA81 (has not taken for a few days) with PMH tobacco use, CAD s/p CABG, who presented to OSH with 3-4 week history of initially RIGHT lower extremity weakness,inability to ambulate without assistance x1 week, and approximately 5 day history of RIGHT upper extremity weakness. MRI exhibited multiple bilateral intracranial lesions, the largest of which are in the LEFT frontal lobe with surrounding vasogenic edema concerning for metastases given a R hilar lung mass as well. Now s/p left frontal/parietal craniotomies for tumor resections (FS = NSCLC). Doing well post op with improvement in R sided strength particularly the R ankle. Post op hyponatremia being managed with salt tabs. Plan: -Qshift neuro checks -SBP <160 -SCDs for DVT ppx, SQH -Hold home ASA -Decadron taper: 4mg BIDx3d, 2mg BIDx3d, 1mg BIDx3d, 1mg QDx3d, stop. -GI ppx while on steroids -Continue keppra (should follow up with neurology for management given seizures) -Eunatremia, check Na BID, continue salt tabs 1g TID -Oncology and radiation oncology consults -PT/OT, mobilize, regular diet -Kedar due 2 wks post op -We will follow -Rest of care per primary team For question please call NSGY pager [phone] Andrew Monroe MD 07/04/2021 3:41 PM Clinical Documentation Improvement: Active Hospital Problems Diagnosis ??? 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 Hyponatremia ??? Hyperglycemia ??? Non-small cell carcinoma of lung ??? Cigarette nicotine dependence with withdrawal ??? CAD (coronary artery disease), HLD Resolved Hospital Problems No resolved problems to display. Benita Leblanc MD - 07/03/2021 3:19 PM EDT [facility] Medicine Attending Daily Progress Note Patient Name: Betsy Laird Service: Hospital Medicine Admit Date: 06/28/2021 Hospital Day: 5 Date of Service: 07/03/2021 Patient Description: Betsy Laird is a 75 y.o. male with pmh significant for CAD s/p CABG, hx of tobacco use who presented with new neurological deficits and has been found to have likely primary lung with brain mets with vasogenic edema. He had a craniotomy performed on 06/30 by Neurosurgery and prelim biopsy report shows that the patient has NSCLC. Neurosurgery recommending whole brain radiation. Onc, Rad Onc, and Palliative Care have been consulted with plan for outpatient follow up to discuss treatment options once definitive diagnosis is established. ASSESSMENT AND PLAN Active Problems: Active Hospital Problems Diagnosis ??? 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 Hyponatremia ??? Hyperglycemia ??? Non-small cell carcinoma of lung ??? Cigarette nicotine dependence with withdrawal ??? CAD (coronary artery disease), HLD Resolved Hospital Problems No resolved problems to display. Non-small cell carcinoma of lung He has evidence of a right hilar mass on CT scan that could be suggestive of primary lung malignancy. Evidence of metastasis to the brain; biopsy obtained during craniotomy. Preliminary path results show NSCLC. 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 MRI showing multiple bilateral intracranial lesions; largest lesion is in the left frontal lobe with surrounding vasogenic edema. Imaging is most consistent with metastasis and patient has concurrent hilar mass which is the likely primary malignancy. Neurosurgery has been consulted and performed debulking procedure/craniotomy on 06/30, prelimbiopsy on frozen section was NSCLC. Have consulted oncology, radiation oncology, and palliative care who have all evaluated patient and plan for outpatient follow up once definitive diagnosis is established to discuss treatment options. He will also need outpatient neurology follow up for seizure. Continues to have gradual improvement in R sided weakness. PLAN -Appreciate Neurosurgery/Onc/Rad Onc/Palliative Care consults -Maintain SBP < 160 -SQH ok per neurosurgery -Decadron taper per Neurosurgery recommendations, starting 07/02: 4mg BIDx3d, 2mg BIDx3d, 1mg BIDx3d,1mg QDx3d, stop -GI ppx while on steroids -Continue keppra 1000 mg BID -Pain control post craniotomy -Bowel regimen PRN -Q4 neuro checks -Target eunatremia, continue NaCl tabs 1g TID -Trend BMP q12h -PT/OT, anticipate rehab -Outpatient follow up with Onc, Rad Onc, Palliative Care, and Neurology Cigarette nicotine dependence with withdrawal Patient has chronic nicotine dependence, quit smoking several days prior to admission. PLAN -Recommend cessation and abstinence -Nicotine patch CAD (coronary artery disease), HLD CAD s/p CABG in 2019. No acute issues. PLAN -Hold ASA per neurosurgery -Continue Atorvastatin and BB Hyperglycemia In setting of dexamethasone administration. PLAN -Started on ISS while in neuro icu s/p craniotomy for close glucose management, continue while on steroids -HgbA1c 5.5 Hyponatremia Post operative hyponatremia with Na zoltan 132, started on NaCl tabs and today improved to 134. Target eunatremia per NSGY. PLAN -Continue NaCl tabs 1g TID -Check urine Na, osms to evaluate for etiology (eg SIADH) -Trend BMP q12h # Routine: - Prophylaxis: DVT: SQH GI: PPI Glycemic control: As above - Nutrition: Regular diet - Code Status: Attempt Cardiopulmonary Resuscitation - Inpatient - Family Communication: Update daughters -Disposition: Pending course, anticipate potential for rehab vs. home with services based on PT/OT recommendations SUBJECTIVE Major 24 Hour Events: -Neurochecks show ongoing improvement in right sided weakness Patient was evaluated and examined at bedside. Feels well without complaints at this time. Notes improved strength in right side, primarily at the ankle. Denies chest pain, dyspnea, fever, chills. Hopeful for discharge home rather than rehab, but agreeable to either per medical recommendation. Misses his dog. OBJECTIVE BP 138/72 (BP Location (NBP): Right arm, Patient Position: Lying) Pulse 53 Temp 36.8 ??C (98.2 ??F) (Temporal) Resp 16 Ht 177.8 cm (5' 10) Wt 75.8 kg (167 lb 1.7 oz) SpO2 95% BMI 23.98 kg/m?? Temp (24hrs), Av.9 ??C (98.4 ??F), Min:36.8 ??C (98.2 ??F), Max:37 ??C (98.6 ??F) Intake/Output Summary (Last 24 hours) at 07/03/2021 1524 Last data filed at 07/03/2021 0855 Gross per 24 hour Intake 642 ml Output 1030 ml Net -388 ml Vitals: Last Value Range Last 24 hrs Temperature Temp: 36.8 ??C (98.2 ??F) Temp: [36.8 ??C (98.2 ??F)-37 ??C (98.6 ??F)] Heart Rate Heart Rate: 53 Heart Rate: [48-74] Blood Pressure BP: 138/72 BP: (113-142)/(57-83) Respiratory Rate Resp: 16 Resp: [13-19] SpO2 SpO2: 95 % SpO2: [92 %-95 %] Weight: Last: 75.8 kg (167 lb 1.7 oz) I/Os: 07/02 0701 - 07/03 0700 In: 630 [P.O.:625; I.V.:5] Out: 1030 [Urine:1030] Admit: 77.11 kg Physical Exam Constitutional: General: He is not in acute distress. Appearance: He is not toxic-appearing or diaphoretic. HENT: Head: Normocephalic and atraumatic. Comments: Incisions over scalp c/d/i. Nose: No congestion. Mouth/Throat: Mouth: Mucous membranes are moist. Pharynx: No oropharyngeal exudate. Eyes: General: No scleral icterus. Extraocular Movements: Extraocular movements intact. Pupils: Pupils are equal, round, and reactive to light. Cardiovascular: Rate and Rhythm: Normal rate and regular rhythm. Heart sounds: Normal heart sounds. No murmur heard. Pulmonary: Effort: Pulmonary effort is normal. No respiratory distress. Breath sounds: Normal breath sounds. No stridor. No wheezing, rhonchi or rales. Abdominal: General: Abdomen is flat. Bowel sounds are normal. There is no distension. Palpations: Abdomen is soft. Tenderness: There is no abdominal tenderness. There is no guarding. Musculoskeletal: General: No swelling or deformity. Normal range of motion. Right lower leg: No edema. Left lower leg: No edema. Skin: General: Skin is warm and dry. Coloration: Skin is not jaundiced or pale. Findings: No bruising, erythema, lesion or rash. Neurological: Mental Status: He is alert and oriented to person, place, and time. Cranial Nerves: No cranial nerve deficit. Sensory: No sensory deficit. Motor: Weakness present. Comments: Alert, oriented, speech intact, right upper and lower extremity weakness with some interval improvement in lower extremity strength. Psychiatric: Mood and Affect: Mood normal. Behavior: Behavior normal. LABS CBC: Recent Labs 07/03/21 0042 07/02/21 0210 07/01/21 0030 WBC 12.3* 13.2* 16.1* HGB 12.7* 12.3* 12.1* PLATELET 292 313 319 BMP: Recent Labs 07/03/21 1158 07/03/21 0042 07/02/21 1152 NA 134* 132* 133* K 4.3 4.0 4.3 CL 98 98 97* CO2 25 24 24 BUN 24* 23* 19 CREATININE 0.89 0.83 0.84 GLUCOSE 108 120 147 Calcium, Magnesium, Phosphate: Recent Labs 07/03/21 1158 07/03/21 0042 07/02/21 1152 07/02/21 0210 07/01/21 0030 CALCIUM 8.5 8.3* 8.6 8.3* 8.4* MAGNESIUM -- 0.87 -- 0.87 0.90 PHOS -- 2.3* -- 3.0 3.4 LFTs: No results for input(s): AST, ALT, ALKPHOS, BILITOT, BILIDIR in the last 168 hours. Troponin: No results for input(s): TROPONINT, CK in the last 168 hours. ABG: No results for input(s): PHART, PLE0KCN, PO2ART, UTY1VFQ in the last 168 hours. Coags: Recent Labs 06/28/212137 PT 12.3 PTT 33 INR 1.1 MICRO Microbiology Results (Last 30 days) Procedure Component Value Units Date/Time COVID-19 PCR [[id number]] Collected: 06/28/212102 Lab Status: Final result Specimen: Nasopharyngeal Swab Updated: 06/28/212353 SARS-CoV-2 RNA PCR Not Detected Comment: This [...] using the Simplexa COVID-19 Direct Assay by [employer] as authorized by the FDA issued Emergency [...] Department of Pathology and Laboratory Medicine at [facility], certified under the Clinical Laboratory [...] fact sheets at the following FDA website: https://www.fda.gov/medical-devices/nlvzhyycazl-dmdzkvm-7304-zqdng-96-boiifrkxl- vbd-snjegdggshrdry-pyhaqdz-devices/fwsmp-stpkslersuu-uabf SARS-CoV-2 Source SPACE TECHNOLOGIST Swab RECENT IMAGING None in past 24 hours. Signed: Benita Leblanc MD 07/03/2021 3:24 PM Hospital Medicine Team Pager: [phone] IPI Certification I certify that I am a D-H credentialed attending provider with admitting privileges and that the patient meets or has met medical necessity to require an inpatient IPI level of care meeting a minimum of two midnights or is on the [facility] inpatient only procedure list (status C) due to: Vasogenic edema with metastatic malignancy, seizure disorder, and neurological deficits requiring ongoing EEG monitoring, and surgical intervention of brain malignancy Andrew Vargas MD - 07/03/2021 8:00 AM EDT NEUROSURGERY PROGRESS NOTE ID: Betsy Laird is a 75 y.o. male right-handed on ASA81 (has not taken for a few days) with PMH tobaccouse, CAD s/p CABG, who presented to OSH with 3-4 week history of initially RIGHT lower extremity weakness, inability to ambulate without assistance x1 week, and approximately 5 day history of RIGHT upper extremity weakness. MRI exhibited multiple bilateral intracranial lesions, the largest of which are in the LEFT frontal lobe with surrounding vasogenic edema concerning for metastases given a R hilarlung mass as well. 06/30, Dr. Justice: Left frontal/parietal craniotomies for tumor resections (FS = NSCLC) INTERVAL Hx: -Reports continued improvement in R sided strength particularly in the ankle -ABY MEDICATIONS: Scheduled Meds: ??? dexamethasone 4 mg Oral 2 times per day Followed by ??? [START ON 07/05/2021] dexamethasone 2 mg Oral 2 times per day Followed by ??? [START ON 07/08/2021] dexamethasone 1 mg Oral 2 times per day Followed by ??? [START ON 07/11/2021] dexamethasone 1 mg Oral Daily ??? heparin (porcine) 5,000 Units Subcutaneous Q8H CORIN ??? sodium chloride 1 g Oral TID ??? insulin lispro 1-4 Units Subcutaneous Q4H CORIN ??? metoprolol tartrate 12.5 mg Oral Q8H CORIN ??? sodium chloride 0.9 % (flush) 5 mL Intravenous BID ??? levETIRAcetam 1,000 mg Oral BID ??? nicotine 1 patch Transdermal Daily And ??? Patch Verification 1 patch Transdermal BID And ??? nicotine 1 patch Transdermal Daily ??? atorvastatin 80 mg Oral QPM ??? pantoprazole EC 40 mg Oral Daily Continuous Infusions: PRN: polyethylene glycoL (MIRALAX) oral powder, 17 g, Daily PRN labetaloL, 10-20 mg, Q15 Min PRN oxyCODONE, 5-10 mg, Q4H PRN Or oxyCODONE, 10-15 mg, Q4H PRN glucose 40% oral geL, 15-30 g, Q30 Min PRN Or dextrose 10%, 250 mL, Q30 Min PRN Or glucagon, 1 mg, Q30 Min PRN sodium chloride 0.9 % (flush), 5-20 mL, Q1 Min PRN lidocaine, 0.3 mL, Once PRN acetaminophen, 975 mg, Q8H PRN calcium carbonate, 500 mg, TID PRN ondansetron, 4 mg, Q8H PRN EXAM: Temp: [36.6 ??C (97.9 ??F)-37 ??C (98.6 ??F)] Heart Rate: [48-74] Resp: [13-19] BP: (113-154)/(57-83) SpO2: [92 %-95 %] Heart Rate from SpO2: [48 bpm-72 bpm] I/O: Intake/Output Summary (Last 24 hours) at 07/03/2021 0949 Last data filed at 07/03/2021 0855 Gross per 24 hour Intake 642 ml Output 1030 ml Net -388 ml GEN:NAD NEURO: AA+Ox3 Speech fluent and appropriate. Naming and repetition intact. PERRL. EOMI. Visual sherwood full to confrontation. No facial asymmetry Tongue midline MOTOR: RUE: 4+/5 LUE:5/5 RLE: 4+/5 except DF, EHL, and PF 4-/5 LLE: 5/5 Numbness in RUE and RLE (improved) Sensation intact in L side Incisions intact (kedar in place) LABS: Recent Labs 07/03/21 0042 07/02/21 0210 07/01/21 0030 WBC 12.3* 13.2* 16.1* HGB 12.7* 12.3* 12.1* PLATELET 292 313 319 Recent Labs 07/03/21 0042 07/02/21 1152 07/02/21 0210 NA 132* 133* 132* K 4.0 4.3 4.2 CL 98 97* 98 CO2 24 24 23 BUN 23* 19 16 CREATININE 0.83 0.84 0.88 No results for input(s): PT, INR in the last 72 hours. IMAGING: None new Assessment: 75 y.o. male right-handed on ASA81 (has not taken for a few days) with PMH tobacco use, CAD s/p CABG, who presented to OSH with 3-4 week history of initially RIGHT lower extremity weakness,inability to ambulate without assistance x1 week, and approximately 5 day history of RIGHT upper extremity weakness. MRI exhibited multiple bilateral intracranial lesions, the largest of which are in the LEFT frontal lobe with surrounding vasogenic edema concerning for metastases given a R hilar lung mass as well. Now s/p left frontal/parietal craniotomies for tumor resections (FS = NSCLC). Doing well post op with improvement in R sided strength particularly the R ankle. Post op hyponatremia being managed with salt tabs. Plan: -Qshift neuro checks ok -SBP <160 -SCDs for DVT ppx, SQH -Hold home ASA -Decadron taper: 4mg BIDx3d, 2mg BIDx3d, 1mg BIDx3d, 1mg QDx3d, stop. -GI ppx while on steroids -Continue keppra (should follow up with neurology for management given seizures) -Eunatremia, check Na BID, continue salt tabs 1g TID -Oncology and radiation oncology consults -PT/OT, mobilize, regular diet -[place] due 2 wks post op -We will follow -Rest of care per primary team For question please call NSGY pager [phone] Andrew Monroe MD 07/03/2021 9:49 AM Clinical Documentation Improvement: Active Hospital Problems Diagnosis ??? 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 Hyperglycemia ??? Non-small cell carcinoma of lung ??? Cigarette nicotine dependence with withdrawal ??? CAD (coronary artery disease), HLD Resolved Hospital Problems No resolved problems to display. Benita Leblanc MD - 07/02/2021 3:27 PM EDT [facility] Medicine Attending Daily Progress Note Patient Name: Betsy Laird Service: Hospital Medicine Admit Date: 06/28/2021 Hospital Day: 4 Date of Service: 07/02/2021 Patient Description: Betsy Laird is a 75 y.o. male with pmh significant for CAD s/p CABG, hx of tobacco use who presented with new neurological deficits and has been found to have likely primary lung with brain mets with vasogenic edema. He had a craniotomy performed on 06/30 by Neurosurgery and prelim biopsy report shows that the patient has NSCLC. Neurosurgery recommending whole brain radiation. Onc, Rad Onc, and Palliative Care have been consulted with plan for outpatient follow up to discuss treatment options once definitive diagnosis is established. ASSESSMENT AND PLAN Active Problems: Active Hospital Problems Diagnosis ??? 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 Hyperglycemia ??? Non-small cell carcinoma of lung ??? Cigarette nicotine dependence with withdrawal ??? CAD (coronary artery disease), HLD Resolved Hospital Problems No resolved problems to display. Non-small cell carcinoma of lung He has evidence of a right hilar mass on CT scan that could be suggestive of primary lung malignancy. Evidence of metastasis to the brain; biopsy obtained during craniotomy. Preliminary path results show NSCLC. 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 MRI showing multiple bilateral intracranial lesions; largest lesion is in the left frontal lobe with surrounding vasogenic edema. Imaging is most consistent with metastasis and patient has concurrent hilar mass which is the likely primary malignancy. Neurosurgery has been consulted and performed debulking procedure/craniotomy on 06/30, prelimbiopsy on frozen section was NSCLC. Have consulted oncology, radiation oncology, and palliative care who have all evaluated patient and plan for outpatient follow up once definitive diagnosis is established to discuss treatment options. PLAN -Appreciate Neurosurgery/Onc/Rad Onc/Palliative Care consults -Maintain SBP < 160 -SQH ok per neurosurgery -Decadron taper per Neurosurgery recommendations, starting 07/02: 4mg BIDx3d, 2mg BIDx3d, 1mg BIDx3d,1mg QDx3d, stop -GI ppx while on steroids -Continue keppra 1000 mg BID -Pain control post craniotomy -Bowel regimen PRN -Q4 neuro checks -Target eunatremia, serial BMP q12h, start NaCl tabs 1g TID if remains hyponatremic -PT/OT, anticipate rehab -Outpatient follow up with Onc, Rad Onc, and Palliative Care Cigarette nicotine dependence with withdrawal Patient has chronic nicotine dependance who quit smoking several days prior to admission. PLAN -Recommend cessation and abstinence -Nicotine patch CAD (coronary artery disease), HLD CAD s/p CABG in 2019. No acute issues. PLAN -Hold ASA per neurosurgery -Continue Atorvastatin and BB Hyperglycemia In setting of dexamethasone administration. PLAN -Started on ISS while in neuro icu s/p craniotomy for close glucose management, continue while on steroids -HgbA1c 5.5 # Routine: - Prophylaxis: DVT: SQH GI: PPI Glycemic control: As above - Nutrition: Regular diet - Code Status: Attempt Cardiopulmonary Resuscitation - Inpatient - Family Communication: Update daughters -Disposition: Pending course, anticipate potential for rehab vs. home with services based on PT/OT recommendations SUBJECTIVE Major 24 Hour Events: -Neurochecks show some improvement in right sided weakness. Patient was evaluated and examined at bedside. He feels overall well and denies any complaints at this time. Primarily feeling overwhelmed with the amount of information he was provided with yesterday and is trying to take it all in. Coping well and currently trying to take it one day at a time. Denies headache, vision changes, chest pain, dyspnea, fever, chills. Appetite is reduced due to stress, but he is eating and drinking as tolerated. OBJECTIVE BP 154/83 (BP Location (NBP): Right arm, Patient Position: Sitting) Pulse 70 Temp 36.6 ??C (97.9??F) (Oral) Resp 15 Ht 177.8 cm (5' 10) Wt 76.2 kg (167 lb 15.9 oz) SpO2 92% BMI 24.10 kg/m?? Temp (24hrs), Av.1 ??C (98.7 ??F), Min:36.6 ??C (97.9 ??F), Max:37.4 ??C (99.3 ??F) Intake/Output Summary (Last 24 hours) at 07/02/2021 1540 Last data filed at 07/02/2021 0800 Gross per 24 hour Intake 693 ml Output 1700 ml Net -1007 ml Vitals: Last Value Range Last 24 hrs Temperature Temp: 36.6 ??C (97.9 ??F) Temp: [36.6 ??C (97.9 ??F)-37.4 ??C (99.3 ??F)] Heart Rate Heart Rate: 70 Heart Rate: [47-70] Blood Pressure BP: 154/83 BP: (107-154)/(68-89) Respiratory Rate Resp: 15 Resp: [12-18] SpO2 SpO2: 92 % SpO2: [88 %-93 %] Weight: Last: 76.2 kg (167 lb 15.9 oz) I/Os: 07/01 0701 - 07/02 0700 In: 1495 [P.O.:650; I.V.:845] Out: 1400 [Urine:1400] Admit: 77.11 kg Physical Exam Constitutional: General: He is not in acute distress. Appearance: He is not ill-appearing, toxic-appearing or diaphoretic. HENT: Head: Normocephalic and atraumatic. Nose: No congestion. Mouth/Throat: Mouth: Mucous membranes are moist. Pharynx: No oropharyngeal exudate. Eyes: General: No scleral icterus. Extraocular Movements: Extraocular movements intact. Pupils: Pupils are equal, round, and reactive to light. Cardiovascular: Rate and Rhythm: Normal rate and regular rhythm. Heart sounds: Normal heart sounds. No murmur heard. Pulmonary: Effort: Pulmonary effort is normal. No respiratory distress. Breath sounds: Normal breath sounds. No stridor. No wheezing, rhonchi or rales. Abdominal: General: Abdomen is flat. Bowel sounds are normal. There is no distension. Palpations: Abdomen is soft. Tenderness: There is no abdominal tenderness. There is no guarding. Musculoskeletal: General: No swelling or deformity. Normal range of motion. Right lower leg: No edema. Left lower leg: No edema. Skin: General: Skin is warm and dry. Coloration: Skin is not jaundiced or pale. Findings: No bruising, erythema, lesion or rash. Neurological: Mental Status: He is alert and oriented to person, place, and time. Cranial Nerves: No cranial nerve deficit. Sensory: No sensory deficit. Motor: Weakness present. Comments: Right upper and lower extremity weakness Psychiatric: Mood and Affect: Mood normal. Behavior: Behavior normal. LABS CBC: Recent Labs 07/02/21 0210 07/01/21 0030 06/30/21 0112 WBC 13.2* 16.1* 16.9* HGB 12.3* 12.1* 13.1* PLATELET 313 319 374* BMP: Recent Labs 07/02/21 1152 07/02/21 0210 07/01/21 0030 NA 133* 132* 136 K 4.3 4.2 4.3 CL 97* 98 100 CO2 24 23 24 BUN 19 16 18 CREATININE 0.84 0.88 0.93 GLUCOSE 147 138 121 Calcium, Magnesium, Phosphate: Recent Labs 07/02/21 1152 07/02/21 0210 07/01/21 0030 06/30/21 0112 CALCIUM 8.6 8.3* 8.4* 9.4 MAGNESIUM -- 0.87 0.90 0.97 PHOS -- 3.0 3.4 -- LFTs: No results for input(s): AST, ALT, ALKPHOS, BILITOT, BILIDIR in the last 168 hours. Troponin: No results for input(s): TROPONINT, CK in the last 168 hours. ABG: No results for input(s): PHART, IEX0CBB, PO2ART, GQM1WQX in the last 168 hours. Coags: Recent Labs 06/28/218 PT 12.3 PTT 33 INR 1.1 MICRO Microbiology Results (Last 30 days) Procedure Component Value Units Date/Time COVID-19 PCR [[id number]] Collected: 06/28/212102 Lab Status: Final result Specimen: Nasopharyngeal Swab Updated: 06/28/212353 SARS-CoV-2 RNA PCR Not Detected Comment: This [...] using the Simplexa COVID-19 Direct Assay by [employer] as authorized by the FDA issued Emergency [...] Department of Pathology and Laboratory Medicine at [facility], certified under the Clinical Laboratory [...] fact sheets at the following FDA website: https://www.fda.gov/medical-devices/ojcgsxhfvga-lcbiivx-4565-idxcv-18-ordnwbqyz- kjp-kaofkysseliris-lfmerws-devices/zatrn-dqiwwiopzoq-fzed SARS-CoV-2 Source SPACE TECHNOLOGIST Swab RECENT IMAGING None is past 24 hours. Signed: Benita Leblanc MD 07/02/2021 3:40 PM Hospital Medicine Team Pager: [phone] IPI Certification I certify that I am a D-H credentialed attending provider with admitting privileges and that the patient meets or has met medical necessity to require an inpatient IPI level of care meeting a minimum of two midnights or is on the CMS inpatient only procedure list (status C) due to: Vasogenic edema with metastatic malignancy, seizure disorder, and neurological deficits requiring ongoing EEG monitoring, and surgical intervention of brain malignancy Saba Vega - 07/02/2021 1:18 PM EDT Nutrition Services Note - Low Nutrition Acuity Betsy Laird is a 75 y.o. male Reason for intervention: diet advancement Nutrition Plan: Continue current diet. Ensure Enlive 3x/day. Monitor weight. Encourage good oral intake. Support and encouragement provided. Patient seen for diet advancement. Pt says that he ate everything on his tray this morning. Pt endorses good appetite, file reports 75-100% intake. Pt wants to continue receiving Ensure supplements 3x/day, requests multiple flavors. Active Orders Diet Regular diet Frequency: Effective Now Number of Occurrences: Until Specified Admit Weight: 77.11 kg Estimated body mass index is 24.1 kg/m?? as calculated from the following: Height as of 06/30/21: 177.8 cm (5' 10). Weight as of this encounter: 76.2 kg (167 lb 15.9 oz). Wt Readings from Last 5 Encounters: 07/01/21 76.2 kg (167 lb 15.9 oz) 06/30/21 75.7 kg (166 lb 14.2 oz) Weight loss: none Appetite: Excellent (75%-100%) Food allergies:no known food allergies Chewing/Swallowing difficulty: none Nausea/Vomiting: no nausea and no vomiting Last Bowel Movement: (PRODUCT ASSURANCE ENGINEER) Patient education / questions: all nutrition related questions answered at this time Nutrition services to follow weekly through hospital course unless consulted in the interim. Saba Vega Pager: [phone] Andrew Monroe MD - 07/02/2021 7:30 AM EDT NEUROSURGERY PROGRESS NOTE ID: Betsy Laird is a 75 y.o. male right-handed on ASA81 (has not taken for a few days) with PMH tobaccouse, CAD s/p CABG, who presented to OSH with 3-4 week history of initially RIGHT lower extremity weakness, inability to ambulate without assistance x1 week, and approximately 5 day history of RIGHT upper extremity weakness. MRI exhibited multiple bilateral intracranial lesions, the largest of which are in the LEFT frontal lobe with surrounding vasogenic edema concerning for metastases given a R hilarlung mass as well. 06/30, Dr. Justice: Left frontal/parietal craniotomies for tumor resections (FS = NSCLC) INTERVAL Hx: -Transferred out of ICU -ABY MEDICATIONS: Scheduled Meds: ??? insulin lispro 1-4 Units Subcutaneous Q4H CORIN ??? metoprolol tartrate 12.5 mg Oral Q8H CORIN ??? sodium chloride 0.9 % (flush) 5 mL Intravenous BID ??? levETIRAcetam 1,000 mg Oral BID ??? nicotine 1 patch Transdermal Daily And ??? Patch Verification 1 patch Transdermal BID And ??? nicotine 1 patch Transdermal Daily ??? dexamethasone 4 mg Oral Q6H CORIN ??? atorvastatin 80 mg Oral QPM ??? pantoprazole EC 40 mg Oral Daily Continuous Infusions: PRN: labetaloL, 10-20 mg, Q15 Min PRN oxyCODONE, 5-10 mg, Q4H PRN Or oxyCODONE, 10-15 mg, Q4H PRN glucose 40% oral geL, 15-30 g, Q30 Min PRN Or dextrose 10%, 250 mL, Q30 Min PRN Or glucagon, 1 mg, Q30 Min PRN sodium chloride 0.9 % (flush), 5-20 mL, Q1 Min PRN lidocaine, 0.3 mL, Once PRN acetaminophen, 975 mg, Q8H PRN calcium carbonate, 500 mg, TID PRN ondansetron, 4 mg, Q8H PRN EXAM: Temp: [36.8 ??C (98.2 ??F)-37.4 ??C (99.3 ??F)] Heart Rate: [47-64] Resp: [12-18] BP: (107-143)/(65-89) SpO2: [88 %-93 %] Heart Rate from SpO2: [47 bpm-69 bpm] I/O: Intake/Output Summary (Last 24 hours) at 07/02/2021 0921 Last data filed at 07/02/2021 0800 Gross per 24 hour Intake 1523 ml Output 1700 ml Net -177 ml GEN:NAD NEURO: AA+Ox3 Speech fluent and appropriate. Naming and repetition intact. PERRL. EOMI. Visual sherwood full to confrontation. No facial asymmetry Tongue midline MOTOR: RUE: 4+/5 LUE:5/5 RLE: 4+/5 except DF, EHL, and PF 1-2/5 LLE: 5/5 Numbness in RUE and RLE (improved) Sensation intact in L side Incisions intact (kedar in place) LABS: Recent Labs 07/02/21 0210 07/01/21 0030 06/30/21 0112 WBC 13.2* 16.1* 16.9* HGB 12.3* 12.1* 13.1* PLATELET 313 319 374* Recent Labs 07/02/21 0210 07/01/21 0030 06/30/21 0112 NA 132* 136 134* K 4.2 4.3 4.2 CL 98 100 97* CO2 23 24 25 BUN 16 18 23* CREATININE 0.88 0.93 1.20 No results for input(s): PT, INR in the last 72 hours. IMAGING: None new Assessment: 75 y.o. male right-handed on ASA81 (has not taken for a few days) with PMH tobacco use, CAD s/p CABG, who presented to OSH with 3-4 week history of initially RIGHT lower extremity weakness,inability to ambulate without assistance x1 week, and approximately 5 day history of RIGHT upper extremity weakness. MRI exhibited multiple bilateral intracranial lesions, the largest of which are in the LEFT frontal lobe with surrounding vasogenic edema concerning for metastases given a R hilar lung mass as well. Now s/p left frontal/parietal craniotomies for tumor resections (FS = NSCLC). Doing well post op. Plan: -Q4 neuro checks -SBP <160 -SCDs for DVT ppx, SQH ok today -Hold home ASA -Decadron taper can start today: 4mg BIDx3d, 2mg BIDx3d, 1mg BIDx3d, 1mg QDx3d, stop. -GI ppx while on steroids -Continue keppra (should follow up with neurology for management given seizures) -Eunatremia, check Na BID and supplement either with salt tabs 1g TID or mIVFs -Oncology and radiation oncology consults -PT/OT, mobilize, regular diet -[place] due 2 wks post op -We will follow -Rest of care per primary team For question please call NSGY pager [phone] Andrew Monroe MD 07/02/2021 9:21 AM Clinical Documentation Improvement: Active Hospital Problems Diagnosis ??? 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 Hyperglycemia ??? Non-small cell carcinoma of lung ??? Cigarette nicotine dependence with withdrawal ??? CAD (coronary artery disease), HLD Resolved Hospital Problems No resolved problems to display. Merly Casiano RN - 07/01/2021 6:38 PM EDT Shift Summary 1745 Pt arrived in NSCU, aox4, RA,SB, Neuro check intact.RUE 4/5 LUE 5/5, RLE 4/5, LLE 5/5 Merly Casiano RN Mary Lemus MD - 07/01/2021 3:07 PM EDT [facility] Medicine Attending Daily Progress Note Patient Name: Betsy Laird Service: Hospital Medicine Admit Date: 06/28/2021 Hospital Day: 3 Date of Service: 07/01/2021 Patient Description: Betsy Laird is a 75 y.o. male with pmh significant for CAD s/p CABG, hx of tobacco use who presents with new neurological deficits and has been found to have likely primary lung with brain mets with vasogenic edema. He had a craniotomy performed on 06/30 by Neurosurgery and prelimbiopsy report shows that the patient has NSCLC. Neurosurgery recommending whole brain radiation. Onc, Rad Onc, and Palliative Care have been consulted. ASSESSMENT AND PLAN Active Problems: Active Hospital Problems Diagnosis ??? 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 Non-small cell carcinoma of lung ??? Cigarette nicotine dependence with withdrawal ??? Hyperglycemia ??? CAD (coronary artery disease), HLD Resolved Hospital Problems No resolved problems to display. Non-small cell carcinoma of lung He has evidence of a right hilar mass on CT scan that could be suggestive of primary lung malignancy. Evidence of metastasis to the brain- biopsy obtained during craniotomy. Preliminary path results show NSCLC. 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 MRI showing multiple bilateral intracranial lesions-largest lesion is in the left frontal lobe with surrounding vasogenic edema. Imaging is most consistent with metastasis and patient has concurrent hilar mass which is the likely primary malignancy. Neurosurgery has been consulted and performed debulking procedure/craniotomy on 06/30, prelim biopsy on frozen section was NSCLC. Neurosurgery recommended consulting rad onc and onc now that primary malignancy has been identified. Have consulted oncology, radiation oncology, and palliative care with plans for them all to see patient while he is here. PLAN -Q4 neuro checks -SQH ok per neurosurgery -Continue decadron, taper to be performed based on Neurosurgery recommendations -Neurosurgery consulted, ongoing recommendations appreciated -Pain control post craniotomy -Neurology consulted for seizures - continue keppra -PT/OT, anticipate rehab -Onc/Rad onc/Pall care consulted, appreciate recommendations; anticipate treatment regimen will include whole brain radiation. Cigarette nicotine dependence with withdrawal Patient has chronic nicotine dependance who quit smoking several days prior to admission. PLAN -Recommend cessation and abstinence -Nicotine patch CAD (coronary artery disease), HLD CAD s/p CABG in 2019. PLAN -Continue ASA, Atorvastatin, and BB Hyperglycemia In setting of dexamethasone administration. PLAN -Started on ISS while in neuro icu s/p craniotomy for close glucose management -Check A1c # Routine: - Prophylaxis: DVT: SQ lovenox Glycemic control: As above - Nutrition: Regular diet - Code Status: Attempt Cardiopulmonary Resuscitation - Inpatient - Family Communication- Daughters -Disposition: Pending course, anticipate potential for rehab vs. Home services based on PT/OT recommendations SUBJECTIVE -Major 24 Hour Events: - Craniotomy performed yesterday and tolerated well. HD stable and afebrile. Neurochecks show some improvement in right sided weakness. Patient was evaluated and examined at bedside. Denies CP or shortness of breath. He reports he has abit of a headache, but his medications are working. He is able to eat and drink well. OBJECTIVE BP 140/72 (BP Location (NBP): Right arm, Patient Position: Lying) Pulse 61 Temp 37 ??C (98.6 ??F) (Oral) Resp 16 Ht 177.8 cm (5' 10) Wt 76.2 kg (167 lb 15.9 oz) SpO2 91% BMI 24.10 kg/m??Temp (24hrs), Av.8 ??C (98.2 ??F), Min:36.4 ??C (97.6 ??F), Max:37.1 ??C (98.7 ??F) Intake/Output Summary (Last 24 hours) at 07/01/2021 181 Last data filed at 07/01/2021 1600 Gross per 24 hour Intake 2487 ml Output 200 ml Net 2287 ml Vitals: Last Value Range Last 24 hrs Temperature Temp: 37 ??C (98.6 ??F) Temp: [36.4 ??C (97.6 ??F)-37.1 ??C (98.7 ??F)] Heart Rate Heart Rate: 61 Heart Rate: [47-64] Blood Pressure BP: 140/72 BP: (112-143)/(59-80) Respiratory Rate Resp: 16 Resp: [11-19] SpO2 SpO2: 91 % SpO2: [87 %-96 %] Weight: Last: 76.2 kg (167 lb 15.9 oz) I/Os: 06/30 0701 - 07/01 0700 In: 2889 [P.O.:350; I.V.:2539] Out: 300 [Urine:250] Admit: 77.11 kg Physical Exam Constitutional: General: He is not in acute distress. Appearance: He is not ill-appearing or diaphoretic. HENT: Head: Normocephalic and atraumatic. Nose: No congestion. Mouth/Throat: Mouth: Mucous membranes are moist. Pharynx: No oropharyngeal exudate. Eyes: General: No scleral icterus. Extraocular Movements: Extraocular movements intact. Pupils: Pupils are equal, round, and reactive to light. Cardiovascular: Rate and Rhythm: Normal rate and regular rhythm. Heart sounds: No murmur heard. Pulmonary: Effort: Pulmonary effort is normal. No respiratory distress. Breath sounds: Normal breath sounds. No stridor. No wheezing, rhonchi or rales. Abdominal: General: Abdomen is flat. Bowel sounds are normal. There is no distension. Palpations: Abdomen is soft. Tenderness: There is no abdominal tenderness. There is no guarding. Musculoskeletal: General: No swelling or deformity. Normal range of motion. Right lower leg: No edema. Left lower leg: No edema. Skin: General: Skin is warm and dry. Coloration: Skin is not jaundiced or pale. Findings: No bruising, erythema, lesion or rash. Neurological: Mental Status: He is alert and oriented to person, place, and time. Cranial Nerves: No cranial nerve deficit. Sensory: No sensory deficit. Motor: Weakness present. Comments: Right upper and lower extremity weakness Psychiatric: Mood and Affect: Mood normal. Behavior: Behavior normal. LABS CBC: Recent Labs 07/01/21 0030 06/30/21 01106/28/211921 WBC 16.1* 16.9* 10.7* HGB 12.1* 13.1* 14.3 PLATELET 319 374* 376* BMP: Recent Labs 07/01/21 0030 06/30/21 0112 06/28/211921 NA 136 134* 138 K 4.3 4.2 4.0 CL 100 97* 102 CO2 24 25 22 BUN 18 23* 17 CREATININE 0.93 1.20 0.91 GLUCOSE 121 180 118 Calcium, Magnesium, Phosphate: Recent Labs 07/01/21 0030 06/30/21 0112 06/28/211921 CALCIUM 8.4* 9.4 9.4 MAGNESIUM 0.90 0.97 -- PHOS 3.4 -- -- LFTs: No results for input(s): AST, ALT, ALKPHOS, BILITOT, BILIDIR in the last 168 hours. Troponin: No results for input(s): TROPONINT, CK in the last 168 hours. ABG: No results for input(s): PHART, LWN1YCT, PO2ART, OSJ4DGQ in the last 168 hours. Coags: Recent Labs 06/28/212137 PT 12.3 PTT 33 INR 1.1 MICRO Microbiology Results (Last 30 days) Procedure Component Value Units Date/Time COVID-19 PCR [[id number]] Collected: 06/28/212102 Lab Status: Final result Specimen: Nasopharyngeal Swab Updated: 06/28/212353 SARS-CoV-2 RNA PCR Not Detected Comment: This [...] using the Simplexa COVID-19 Direct Assay by [employer] as authorized by the FDA issued Emergency [...] Department of Pathology and Laboratory Medicine at [facility], certified under the Clinical Laboratory [...] fact sheets at the following FDA website: https://www.fda.gov/medical-devices/pfnjjmtvmdm-tucmmdn-2190-auwkk-36-zcrglhhgg- due-kcvkhabdtqcehu-voxwhyo-devices/nibjj-ebiegoftrqe-vkyj SARS-CoV-2 Source SPACE TECHNOLOGIST Swab RECENT IMAGING None is past 24 hours. Signed: Mary Lemus MD 07/01/2021 6:17 PM Hospital Medicine Team Pager: [phone] IPI Certification I certify that I am a D-H credentialed attending provider with admitting privileges and that the patient meets or has met medical necessity to require an inpatient IPI level of care meeting a minimum of two midnights or is on the [facility] inpatient only procedure list (status C) due to: Vasogenic edema with metastatic malignancy, seizure disorder, and neurological deficits requiring ongoing EEG monitoring, and possible surgical intervention of brain malignancy Dexter Emmanuel, PT - 07/01/2021 11:53 AM EDT Physical Therapy Note Treatment Number PT: 2 Patient profile: Betsy Laird is a 75 y.o. male admitted on 06/28/[address] Mary Lemus MDwent to [facility] ED with R sided weakness progressed over a month with R foot drop and MRI of brain c/w metastatic brain cancer and referred to [facility] [place]. ??MRI of his lumbar spine which showed multilevel degenerative disease. Vasogenic edema, continue decadron. Seizure-like activity so Neurology placed EEG monitor 06/29: No seizures or epileptiform discharges were observed.?? Imaging showing R hilar lung mass. Surgical consideration pending lung biopsy results PMH: CAD s/p 4vCABG ~2019 @ [place], tobacco use disorder in recent remission 5 days ago (58 pk/yr history). Interval History: Surgery 06/30 :L frontal and L parietal craniotomy for resection of tumors. Neuro ICU post-op., frozen consistent with non-small cell Social History: Lives alone in [place], [place] in a one level home with stairs & ramp to enter. Ramp has 2 railings. He does have laundry in basement. Bathroom Set-up: cut-out tub shower. Baseline Mobility: Retired, active according to daughters, Independent up until a month ago, out plowing this past winter, drives, grocery shops, manages his own finances, and manages his own home. Equipment at home: walker and wheelchair : he obtained in last month. Fall history: few falls recently with R sided weakness, able to get self up from floor, no injuries. Precautions/Special Considerations: Fall risk, up with assist SBP< 160, Regular diet ? Mobility and Positioning Recommendations: ?? Pt. should utilize walker and 2 person assist for ambulation and transfers with nursing. ?? Please encourage up to chair for meal times as able. ?? Pt encouraged to ambulate short distance with staff & getting into the bathroom. ?? Family will bring in footwear and then will give him an AFO for R foot drop. ?? Subjective: Yes, I'd like to get up That would feel good (offered for him to brush his teeth) Objective: Patient seen for physical therapy and demonstrated the following: Pain: my head aches some Vital Signs: HR=59 SpO2=93% RA OK=789/65 ?? Seen in Neuro ICU post-op: agreeable to get OOB, just finished eating breakfast in bed. ?? Able to move to sit EOB, HOB up and given extra time, supervised. Good static sitting balance EOB. ?? Sit >< stand: CGA x 2 up to walker ?? Gait: amb 5' from bed to sink and stood to brush teeth, R LE guarded as knee flexed-to allow him to focus on R UE ?? Gait after brushing teeth around bed to recliner on opposite side of room ~ 15' using FWW and Timo x 2 and moving IV pole and monitoring lines, he had mcknight in place. During gait cues to slow pace and allow time for R foot to advance and be sure R foot is down before moving L LE. ?? Pt left in bedside recliner chair with call lozano in reach, items on bedside table in reach & seat alarm in place following visit. Education: patient has been educated on Safety , Role of therapy and Discharge planning. Reminded sidney for staff assistance before moving. Assessment: Betsy Luis Fernando Laird was seen today for physical therapy treatment session for continuation of POC. POD#1 s/p crani for tumor resection, seen in Neuro ICU this morning: He continues to present with some pain head aches, deficits in AROM / flexibility, Strength on right, balance and sensation, coordination R side, R foot drop, fall risk. Oncology staff in to speak with him today as well. These impairments currently impact patient's ability to safely and independently perform bed mobility, transfers, ambulation, stair negotiation & daily activities on his own. He lives alone, R hand dominant, and active and independent prior to admit. For all of these reasons, he's an excellent rehab candidate and is motivated to regain strength. Pt will benefit from ongoing therapeutic interventions to achieve therapy goals. Discharge Recommendations: Based on the current findings, Anticipated Discharge Disposition (PT): acute rehabilitation facilitywhen medically ready for hospital discharge. Consult Recommendations: CM- referrals for acute rehab Equipment needs: Anticipated Equipment Needs at Discharge (PT): to be determined (@ rehab facility) Physical Therapy Goals: To be achieved by 07-14-21: ?? 1. Pt. to demonstrate knowledge of safety precautions by appropriately requesting assistance to mobilize. 2. Pt. to demonstrate understanding of appropriate exercises to help AROM/strength R side. 3. Pt. to perform bed mobility with modified independence. 4. Pt. to perform sit><stand transfers with modified independence and with supervision using afront wheeled walker. 5. Pt. to ambulate 50 feet with modified independence and with supervision using a a front wheeled walker. 6. Pt able to maneuver self in w/c household distances and remember to lock brakes before transfer with modified (I). 7. Pt will tolerate activity progression with stable pain level & vital signs. Plan: Therapy Frequency (PT): 2-4 times/wk for balance training, bed mobility training, gait training, home exercise program, patient/family education, range of motion, stair training, strengthening, stretching and transfer training, wheelchair training, discharge planning. Patient/family understand and agree with plan.. Time IN / OUT: 10:30-11:02 Total Minutes, Physical Therapy: 32 (TE-F x 2) DEXTER EMMANUEL, PT Pager: [phone] Physical Therapy Inpatient Rehabilitation Department Judith Duran OT - 07/01/2021 10:32 AM EDT Occupational Therapy Evaluation Patient profile: Betsy Laird is a 75 y.o.??male??right-handed on ASA81 (has not taken for a few days)??with PMH tobacco use,??CAD s/p CABG,??who presented to OSH with 3-4 week history of initially RIGHT lower extremity weakness, inability to ambulate without assistance x1 week, and approximately 5 day history of RIGHT upper extremity weakness. ??MRI exhibited multiple??bilateral??intracranial lesions, the largest of which are in the LEFT frontal lobe with surrounding vasogenic edema concerning for metastases given a R hilar lung mass as well. Recommend lung tumor biopsy first to guide management. If NSCLC the mets in the left frontal lobe could certainly be resected/debulked; if SCLC then surgerywould not be needed. Past Medical History: Diagnosis Date ??? CAD (coronary artery disease) s/p CABG 2018 ??? High cholesterol ??? Hypertension ??? Tobacco use Past Surgical History: Procedure Laterality Date ??? PRO EXCIS SUPRATENT BRAIN TUMOR Left 06/30/2021 @[facility], FOR TUMOR, SUPRATENTORIAL, NOT MENINGIOMA (WRVU 30.83) performed by Estefania Justice MD at [facility] MAIN OR ??? PRO MICROSURG TECHNIQUES, REQ OPER MICROSCOPE N/A 06/30/2021 MICROSCOPE USE (WRVU 3.46) performed by Estefania Justice MD at [facility] MAIN OR ??? PRO STEREOTACTIC CPTR ASSTD PX CRANIAL, INTRADURAL N/A 06/30/2021 STEREOTACTIC COMPUTER-ASSTD NAVIGATIONAL CRANIAL INTRADURAL (WRVU 3.75) performed by Estefania Justice MD at [facility] MAIN OR Social History: Patient lives alone in a house in [place], [place] with his dog Home Setup: Pt reports that he has a ramp to enter with bilateral rails. Pt has one level home with a basement. Pt reports that he sleeps on the sofa at times. Pt has a tub/shower combo with GB. DME: Walker, wheelchair Baseline ADL/Mobility: Prior to admission; Pt was independent with ADL routines, transfers and IADL routines until ~2 weeks ago when Pt having difficulty with R hemibody. Pt reports that he started using FWW and wheelchair. Pt reports ~2 falls recently. 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 Pt daughter Antonina, lives farther away, but is supportive. ?? Precautions/Special Considerations: Full code, up with assistance, at risk for falls, SBP <160 Subjective: My arm isn't as bad as my foot. Re: numbness Objective: Seen today for OT evaluation. Pain: c/o headache Vitals: o HR: 56 bpm o SpO2: 93% on RA o BP: 143/65 mmHg Cognitive Status/Behavior: ?? Behavior / Mood: alert and cooperative ?? Alert and oriented to: person, place, time and situation ?? Follows commands: multi step and 100% of the time ?? Attention: WFL ?? Safety awareness: decreased insight into deficits Vision & Perception: WNL/WFL corrective lenses time clock inspector Communication/Hearing: WFL Musculoskeletal: Hand dominance: right Strength/AROM: BUE grossly WFL; 5/5 LUE 4-/5 RUE. LLE WFL. No ROM of R ankle Coordination: L U < LE ataxia Sensation: diminished in R foot Skin: intact; stockinet dressing over head Activities of Daily Living: Self-feeding: NA; pt ate lunch from bed prior to OT arrival Grooming: brushed teeth in standing at sink with min A for balance d/t episode of posterior LOB Dressing: min A to don slipper socks in long sit in bed; pt using figure 4 technique to reach R foot. Bathing: NA Toileting: NA Functional Mobility: Supine to sit: min A with HOB elevated Sit to stand: CGA x 1 to FWW Ambulation: bed to sink to chair on opposite side of room with min A x 1 and assist x 1 for lines. Stand to sit: CGA Sit to supine: NA Balance: Static sitting: good Dynamic sitting: good Static standing balance: fair with UE support Dynamic standing balance: fair with UE support Education: Patient has been educated on Role of occupational therapy/rehabilitation, Transfers, ADL,Positioning, Safety, Functional Mobility, Activity pacing/Energy conservation, Balance, Recommendations and Discharge planning and pt verbalized understanding. Patient status, treatment, and mobility recommendations discussed with nursing. Assessment: Pt has been seen for occupational therapy evaluation. Betsy Laird presents with the following performance skill deficits and client factors: decreased activity tolerance, decreased flexibility/ROM, decreased strength, decreased sitting/standing balance, sensory deficits, decreased motor control, decreased postural control, deconditioning, precautions/bracing, compromised mobility status and skin integrity. These performance deficits have led to activity limitations and participation restrictions in the following areas of occupation: dressing, bathing, grooming, toileting, transfers/mobility, home management, work, leisure, driving, community mobility and social participation. Pt was able to ambulate in and out of his room, participate in LB dressing, stand for grooming tasks at sink,and transfer to a bedside chair with minimal assist and cues for safety d/t coordination and sensorydeficits in RLE. Pt presents below his baseline level of function and would benefit from inpatient rehab to address his deficits and facilitate return to independent living. Further inpatient OT interventions are recommended to address performance deficits and maximize participation and independence with occupations of daily living. Equipment needs at discharge: Equipment Needs Upon Discharge (OT): to be determined Anticipated Discharge Disposition (OT): acute rehabilitation facility Staff Recommendations: ??? Bathroom/Commode for toileting ??? Reorient pt multiple times a day as needed ??? Ambulate 3x/day with 1-2 assist and FWW ??? Assist pt OOB to chair for meals ??? Promote wellbeing through engagement in leisure and relaxation activities ??? Encourage good sleep hygiene with appropriate sleep/wake cycles ??? Utilize upright chair position using bed features or transfer to recliner chair as appropriate ??? Encourage participation in ADL's and provide physical assist only as needed Other Recommendations: Inpatient Rehabilitation consult Goals: To be achieved by 07/15/21. 1. Pt will ambulate to the bathroom with supervision and LRD 2. Pt will perform toileting tasks with supervision 3. Pt will dress his LB with supervision 4. Pt will stand at the sink to perform 3 grooming tasks with supervision 5. Pt will demonstrate independence with ANASTASIIA ROMERO to improve coordination Plan: OT: Therapy Frequency (OT): 3-5 times/wk Planned OT interventions: Role of occupational therapy/rehabilitation, Transfers, Assistive device/technique, Adaptive equipment training, ADL, Exercise, Breathing exercises, Positioning, Safety, Precautions/Protocol, Functional Mobility, Activity pacing/Energy conservation, Home Program, Home Management, Balance, Recommendations, Family training and Discharge planning. Total Minutes, Occupational Therapy: 27 (Re-evaluation, 10:32-10:59) 2017 OT Evaluation Code Rationale: ?? Diagnosis & Pertinent Co-Morbidities affecting Plan of Care: see PMHx ?? Occupational Profile & Client History: Brief Expanded Extensive x ?? Assessment of Occupational Performance: 1-3 performance deficits 3-5 performance deficits 5 + performance deficits x ?? Clinical Decision Making: Low Moderate High x Clinical decision making of moderate complexity using standardized patient assessment instrument andmeasurable assessment of functional outcome. Pager: [phone] Judith Duran OTR/L Occupational Therapy Rehabilitation Department Paola Benson PA - 07/01/2021 7:06 AM EDT NEUROSURGERY PROGRESS NOTE ID: Betsy Laird is a 75 y.o. male right-handed on ASA81 (has not taken for a few days) with PMH tobaccouse, CAD s/p CABG, who presented to OSH with 3-4 week history of initially RIGHT lower extremity weakness, inability to ambulate without assistance x1 week, and approximately 5 day history of RIGHT upper extremity weakness. MRI exhibited multiple bilateral intracranial lesions, the largest of which are in the LEFT frontal lobe with surrounding vasogenic edema concerning for metastases given a R hilarlung mass as well. POD#1 L frontal and L parietal craniotomy for resection of tumors, 06/30/21, Dr. Justice INTERVAL Hx: -now s/p L frontal and L parietal craniotomy for resection of tumors -frozen consistent with non-small cell -extubated and admitted to [facility] -mcknight removed and voiding spontaneously -arterial line removed -post-op Brain MRI complete -WBC 16.1 (from 16.9), afebrile -Hgb 12.1 (from 13.1) -Na 136 (from 134) EXAM: GEN:NAD NEURO: AA+Ox3 Speech fluent and appropriate. Naming and repetition intact. PERRL. EOMI. Visual sherwood full to confrontation. No facial asymmetry Tongue midline Right pronator drift MOTOR: RUE: 4/5 LUE:5/5 RLE: 4+/5 except DF, EHL, and PF 0/5 LLE: 5/5 Reports sensation intact in all extremities Crani cap clean dry intact, able to insert 2 fingers under kerlex IMAGING: Brain MRI w/wo contrast complete 06/30/21 Final read pending Assessment: 75 y.o. male right-handed on ASA81 (has not taken for a few days) with PMH tobacco use, CAD s/p CABG, who presented to OSH with 3-4 week history of initially RIGHT lower extremity weakness,inability to ambulate without assistance x1 week, and approximately 5 day history of RIGHT upper extremity weakness. MRI exhibited multiple bilateral intracranial lesions, the largest of which are in the LEFT frontal lobe with surrounding vasogenic edema concerning for metastases given a R hilar lung mass as well. Now s/p L frontal and parietal craniotomy for resection of tumors, frozen consistent with metastaticcarcinoma, non-small cell Plan: -OK for q4hour neuro checks -SBP <160 -dexamethasone 4mg q6hrs; will initiate taper beginning 07/02/21 -PPI for GI ppx -Keppra 1000BID -goal normonatremia -SCDs for DVT ppx; hold anticoagulation/antiplatelets, will consider SQH tomrrow 07/02/21 -advance diet as tolerated -activity as tolerated -consider PT/OT -bowel regimen -planning for oncologic treatment; recommend engaging radiation oncology and oncology -remainder of care per primary team Patient was seen with NSGY chief, Dr. Vanegas, and care was discussed with NSGY attending, Dr. Justice. For question please call NSGY pager [phone] MEDICATIONS: Scheduled Meds: ??? insulin lispro 1-4 Units Subcutaneous Q4H CORIN ??? metoprolol tartrate 12.5 mg Oral Q8H CORIN ??? sodium chloride 0.9 % (flush) 5 mL Intravenous BID ??? levETIRAcetam 1,000 mg Oral BID ??? nicotine 1 patch Transdermal Daily And ??? Patch Verification 1 patch Transdermal BID And ??? nicotine 1 patch Transdermal Daily ??? dexamethasone 4 mg Oral Q6H CORIN ??? atorvastatin 80 mg Oral QPM ??? pantoprazole EC 40 mg Oral Daily Continuous Infusions: ??? sodium chloride 0.9% 100 mL/hr (07/01/21 0541) PRN: labetaloL, 10-20 mg, Q15 Min PRN oxyCODONE, 5-10 mg, Q4H PRN Or oxyCODONE, 10-15 mg, Q4H PRN glucose 40% oral geL, 15-30 g, Q30 Min PRN Or dextrose 10%, 250 mL, Q30 Min PRN Or glucagon, 1 mg, Q30 Min PRN sodium chloride 0.9 % (flush), 5-20 mL, Q1 Min PRN lidocaine, 0.3 mL, Once PRN acetaminophen, 975 mg, Q8H PRN calcium carbonate, 500 mg, TID PRN ondansetron, 4 mg, Q8H PRN EXAM: Temp: [35.7 ??C (96.3 ??F)-36.7 ??C (98 ??F)] Heart Rate: [47-74] Resp: [11-24] BP: (112-142)/(59-80) SpO2: [91 %-96 %] Heart Rate from SpO2: [47 bpm-75 bpm] I/O: Intake/Output Summary (Last 24 hours) at 07/01/2021 0706 Last data filed at 07/01/2021 0541 Gross per 24 hour Intake 2889 ml Output 300 ml Net 2589 ml LABS: Recent Labs 07/01/21 0030 06/30/21 01106/28/211921 WBC 16.1* 16.9* 10.7* HGB 12.1* 13.1* 14.3 PLATELET 319 374* 376* Recent Labs 07/01/21 0030 06/30/21 0112 06/28/211921 NA 136 134* 138 K 4.3 4.2 4.0 CL 100 97* 102 CO2 24 25 22 BUN 18 23* 17 CREATININE 0.93 1.20 0.91 Recent Labs 06/28/218 PT 12.3 INR 1.1 MARCUS Kelly 07/01/2021 7:06 AM Clinical Documentation Improvement: Active Hospital Problems Diagnosis ??? 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 Lung Cancer, metastatic stage IV, type not identified ??? Cigarette nicotine dependence with withdrawal ??? CAD (coronary artery disease), HLD Resolved Hospital Problems No resolved problems to display. Glenis Dozier RN - 06/30/2021 7:31 PM EDT : OUTCOME EVALUATION NOTE: OUTCOME SUMMARY: Left wrist bracelet removed at start of shift. MRI notified at 19:30 patient is ready for MRI. MRI performed at 22:00 without difficulty. Bladder scan at beginning of shift without intervention needed.Patient later voided independently. Arterial line removed, per order. Advanced to regular diet and me al order faxed to dietary. PLAN MOVING FORWARD: Q1 hour neuro exams SBP <160 PT/OT Leti Polanco OTA - 06/30/2021 1:48 PM EDT 06/30/21 1346 Evaluation & Treatment Document Type contact Total Minutes, Occupational Therapy 0 Comment, Session Not Performed Pt off the floor to OR, OT to follow up for reassessment as pt appropriate/available . Therapy Frequency (OT) 3-5 times/wk Anticipated Discharge Disposition (OT) acute rehabilitation facility Mary Lemus MD - 06/30/2021 12:07 PM EDT [facility] Medicine Attending Daily Progress Note Patient Name: Betsy Laird Service: Hospital Medicine Admit Date: 06/28/2021 Hospital Day: 2 Date of Service: 06/30/2021 Patient Description: Betsy Laird is a 75 y.o. male with pmh significant for CAD s/p CABG, hx of tobacco use who presents with new neurological deficits and has been found to have likely primary lung with brain mets with vasogenic edema. ASSESSMENT AND PLAN Active Problems: Active Hospital Problems Diagnosis ??? 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 Lung Cancer, metastatic stage IV, type not identified ??? Cigarette nicotine dependence with withdrawal ??? CAD (coronary artery disease), HLD Resolved Hospital Problems No resolved problems to display. Lung Cancer, metastatic stage IV, type not identified He has evidence of a right hilar mass on CT scan that could be suggestive of primary lung malignancy. Evidence of metastasis to the brain. PLAN -Obtaining brain met biopsy with craniotomy -Oncology and Palliative Care will be consulted pending course Brain metastasis, Vasogenic Edema, Seizure secondary to vasogenic edema and brain mass, neurologicaldeficits Patient presenting with right lower extremity weakness, inability to ambulate without assistance, and more recent development of right upper extremity weakness. MRI showing multiple bilateral intracranial lesions-largest lesion is in the left frontal lobe with surrounding vasogenic edema. Imaging is most consistent with metastasis and patient has concurrent hilar mass which is the likely primary malignancy. Neurosurgery has been consulted and performing debulking procedure/craniotomy on 06/30. PLAN -Q4 neuro checks -SQH ok per neurosurgery -Continue decadron -Neurosurgery consulted, intervention recommended -Debulking performed today with craniotomy -Neurology consulted for seizures - continue keppra Cigarette nicotine dependence with withdrawal Patient has chronic nicotine dependance who quit smoking several days prior to admission. PLAN -Recommend cessation and abstinence -Nicotine patch CAD (coronary artery disease), HLD CAD s/p CABG in 2019. PLAN -Continue ASA, Atorvastatin, and BB # Routine: - Prophylaxis: DVT: SQ lovenox Glycemic control: As above - Nutrition: NPO diet (Give Meds) - Code Status: Attempt Cardiopulmonary Resuscitation - Inpatient - Family Communication- -Disposition: Pending course, anticipate potential for rehab vs. Home services after neurosurgical intervention SUBJECTIVE -Major 24 Hour Events: - Nausea and vomiting yesterday afternoon. WBC count up. HD stable and afebrile. Neurosurg ultimately decided on craniotomy. Discussed case with patient and his family. Brief goals of care discussion performed and patient would defer to his daughters to make decisions if he cannot. Patient was evaluated and examined at bedside. Patient states he is anxious and did not sleep well. He is nervous and would the procedure to be over. Denies pain or discomfort. OBJECTIVE BP 125/74 (BP Location (NBP): Right arm, Patient Position: Lying) Pulse 55 Temp 36.6 ??C (97.9 ??F) (Axillary) Resp 15 Ht 177.8 cm (5' 10) Wt 77.6 kg (171 lb 1.2 oz) SpO2 91% BMI 24.55 kg/m?? Temp (24hrs), Av.5 ??C (97.7 ??F), Min:36.4 ??C (97.6 ??F), Max:36.6 ??C (97.9 ??F) Intake/Output Summary (Last 24 hours) at 06/30/2021 1207 Last data filed at 06/30/2021 0600 Gross per 24 hour Intake 350 ml Output 450 ml Net -100 ml Vitals: Last Value Range Last 24 hrs Temperature Temp: 36.6 ??C (97.9 ??F) Temp: [36.4 ??C (97.6 ??F)-36.6 ??C (97.9 ??F)] Heart Rate Heart Rate: 55 Heart Rate: [55-72] Blood Pressure BP: 125/74 BP: (112-155)/(67-80) Respiratory Rate Resp: 15 Resp: [13-17] SpO2 SpO2: 91 % SpO2: [87 %-96 %] Weight: Last: 77.6 kg (171 lb 1.2 oz) I/Os: 06/29 0701 - 06/30 0700 In: 350 [P.O.:350] Out: 750 [Urine:750] Admit: 77.11 kg Physical Exam Constitutional: General: He is not in acute distress. Appearance: He is not ill-appearing or diaphoretic. HENT: Head: Normocephalic and atraumatic. Nose: No congestion. Mouth/Throat: Mouth: Mucous membranes are moist. Pharynx: No oropharyngeal exudate. Eyes: General: No scleral icterus. Extraocular Movements: Extraocular movements intact. Pupils: Pupils are equal, round, and reactive to light. Cardiovascular: Rate and Rhythm: Normal rate and regular rhythm. Heart sounds: No murmur heard. Pulmonary: Effort: Pulmonary effort is normal. No respiratory distress. Breath sounds: Normal breath sounds. No stridor. No wheezing, rhonchi or rales. Abdominal: General: Abdomen is flat. Bowel sounds are normal. There is no distension. Palpations: Abdomen is soft. Tenderness: There is no abdominal tenderness. There is no guarding. Musculoskeletal: General: No swelling or deformity. Normal range of motion. Right lower leg: No edema. Left lower leg: No edema. Skin: General: Skin is warm and dry. Coloration: Skin is not jaundiced or pale. Findings: No bruising, erythema, lesion or rash. Neurological: Mental Status: He is alert and oriented to person, place, and time. Cranial Nerves: No cranial nerve deficit. Sensory: No sensory deficit. Motor: Weakness present. Comments: Right upper and lower extremity weakness Psychiatric: Mood and Affect: Mood normal. Behavior: Behavior normal. LABS CBC: Recent Labs 06/30/21 0112 06/28/211921 WBC 16.9* 10.7* HGB 13.1* 14.3 PLATELET 374* 376* BMP: Recent Labs 06/30/21 0112 06/28/211921 NA 134* 138 K 4.2 4.0 CL 97* 102 CO2 25 22 BUN 23* 17 CREATININE 1.20 0.91 GLUCOSE 180 118 Calcium, Magnesium, Phosphate: Recent Labs 06/30/21 0112 06/28/211921 CALCIUM 9.4 9.4 MAGNESIUM 0.97 -- LFTs: No results for input(s): AST, ALT, ALKPHOS, BILITOT, BILIDIR in the last 168 hours. Troponin: No results for input(s): TROPONINT, CK in the last 168 hours. ABG: No results for input(s): PHART, EXU0MWB, PO2ART, ZDI3PUJ in the last 168 hours. Coags: Recent Labs 06/28/212137 PT 12.3 PTT 33 INR 1.1 MICRO Microbiology Results (Last 30 days) Procedure Component Value Units Date/Time COVID-19 PCR [[id number]] Collected: 06/28/212102 Lab Status: Final result Specimen: Nasopharyngeal Swab Updated: 06/28/212353 SARS-CoV-2 RNA PCR Not Detected Comment: This [...] using the Simplexa COVID-19 Direct Assay by [employer] as authorized by the FDA issued Emergency [...] Department of Pathology and Laboratory Medicine at [facility], certified under the Clinical Laboratory [...] fact sheets at the following FDA website: https://www.fda.gov/medical-devices/wuikxvzsiae-dgskmud-7644-nwhqm-19-mrvlfntxp- bhw-vblplphsyqxlff-hxocscj-devices/wzvfa-cqcwhagqsof-pzjy SARS-CoV-2 Source SPACE TECHNOLOGIST Swab RECENT IMAGING None is past 24 hours. Signed: Mary Lemus MD 06/30/2021 12:07 PM Hospital Medicine Team Pager: #[phone] IPI Certification I certify that I am a D-H credentialed attending provider with admitting privileges and that the patient meets or has met medical necessity to require an inpatient IPI level of care meeting a minimum of two midnights or is on the CMS inpatient only procedure list (status C) due to: Vasogenic edema with metastatic malignancy, seizure disorder, and neurological deficits requiring ongoing EEG monitoring, and possible surgical intervention of brain malignancy Merly Casiano RN - 06/30/2021 11:56 AM EDT Shift Summary 1140 Pt down to surgery Merly Casiano RN Andrew Monroe MD - 06/30/2021 6:30 AM EDT NEUROSURGERY PROGRESS NOTE ID: Betsy Laird is a 75 y.o. male right-handed on ASA81 (has not taken for a few days) with PMH tobaccouse, CAD s/p CABG, who presented to OSH with 3-4 week history of initially RIGHT lower extremity weakness, inability to ambulate without assistance x1 week, and approximately 5 day history of RIGHT upper extremity weakness. MRI exhibited multiple bilateral intracranial lesions, the largest of which are in the LEFT frontal lobe with surrounding vasogenic edema concerning for metastases given a R hilarlung mass as well. INTERVAL Hx: -NPO for OR today MEDICATIONS: Scheduled Meds: ??? metoprolol tartrate 12.5 mg Oral Q8H CORIN ??? sodium chloride 0.9 % (flush) 5 mL Intravenous BID ??? melatonin 6 mg Oral Nightly ??? levETIRAcetam 1,000 mg Oral BID ??? nicotine 1 patch Transdermal Daily And ??? Patch Verification 1 patch Transdermal BID And ??? nicotine 1 patch Transdermal Daily ??? dexamethasone 4 mg Oral Q6H CORIN ??? atorvastatin 80 mg Oral QPM ??? pantoprazole EC 40 mg Oral Daily Continuous Infusions: ??? sodium chloride 0.9% 100 mL/hr (06/30/21 0613) PRN: sodium chloride 0.9 % (flush), 5-20 mL, Q1 Min PRN lidocaine, 0.3 mL, Once PRN acetaminophen, 975 mg, Q8H PRN calcium carbonate, 500 mg, TID PRN ondansetron, 4 mg, Q8H PRN LORazepam, 1 mg, Q4H PRN EXAM: Temp: [36.4 ??C (97.6 ??F)-36.6 ??C (97.9 ??F)] Heart Rate: [56-72] Resp: [12-17] BP: (112-155)/(67-80) SpO2: [87 %-96 %] Heart Rate from SpO2: [55 bpm-63 bpm] I/O: Intake/Output Summary (Last 24 hours) at 06/30/2021 0827 Last data filed at 06/30/2021 0600 Gross per 24 hour Intake 350 ml Output 750 ml Net -400 ml GEN:NAD NEURO: AA+Ox3 Speech fluent and appropriate. Naming and repetition intact. PERRL. EOMI. Visual sherwood full to confrontation. No facial asymmetry Tongue midline MOTOR: RUE: proximally 4/5, distally 4+/5 LUE:5/5 RLE: 4+/5 except DF, EHL, and PF 0/5 LLE: 5/5 Numbness in RUE and RLE Sensation intact in L side LABS: Recent Labs 06/30/21 0112 06/28/211921 WBC 16.9* 10.7* HGB 13.1* 14.3 PLATELET 374* 376* Recent Labs 06/30/21 0112 06/28/211921 NA 134* 138 K 4.2 4.0 CL 97* 102 CO2 25 22 BUN 23* 17 CREATININE 1.20 0.91 Recent Labs 06/28/212137 PT 12.3 INR 1.1 IMAGING: None new Assessment: 75 y.o. male right-handed on ASA81 (has not taken for a few days) with PMH tobacco use, CAD s/p CABG, who presented to OSH with 3-4 week history of initially RIGHT lower extremity weakness,inability to ambulate without assistance x1 week, and approximately 5 day history of RIGHT upper extremity weakness. MRI exhibited multiple bilateral intracranial lesions, the largest of which are in the LEFT frontal lobe with surrounding vasogenic edema concerning for metastases given a R hilar lung mass as well. NPO for OR today. Plan: -Q4 neuro checks -SQH hold -Continue decadron -NPO for OR today for L crani -Rest of care per primary team For question please call NS pager [phone] Andrew Monroe MD 06/30/2021 8:27 AM Clinical Documentation Improvement: Active Hospital Problems Diagnosis ??? 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 Lung Cancer, metastatic stage IV, type not identified ??? Cigarette nicotine dependence with withdrawal ??? CAD (coronary artery disease), HLD Resolved Hospital Problems No resolved problems to display. Radha Gramajo OT - 06/29/2021 4:16 PM EDT Occupational Therapy Evaluation Patient profile: Betsy Laidr is a 75 y.o. male right-handed on ASA81 (has not taken for a few days)with PMH tobacco use, CAD s/p CABG, who presented to OSH with 3-4 week history of initially RIGHT lower extremity weakness, inability to ambulate without assistance x1 week, and approximately 5 day history of RIGHT upper extremity weakness. ??MRI exhibited multiple bilateral intracranial lesions, the largest of which are in the LEFT frontal lobe with surrounding vasogenic edema concerning for metastases given a R hilar lung mass as well. Recommend lung tumor biopsy first to guide management. If NSCLC the mets in the left frontal lobe could certainly be resected/debulked; if SCLC then surgery would not be needed. No past medical history on file. No past surgical history on file. Social History: Patient lives alone in a house in [place], [place] with his dog Home Setup: Pt reports that he has a ramp to enter with bilateral rails. Pt has one level home with a basement. Pt reports that he sleeps on the sofa at times. Pt has a tub/shower combo with GB. DME: Walker, wheelchair Baseline ADL/Mobility: Prior to admission; Pt was independent with ADL routines, transfers and IADL routines until ~2 weeks ago when Pt having difficulty with R hemibody. Pt reports that he started using FWW and wheelchair. Pt reports ~2 falls recently. 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 Pt daughter Antonina, lives farther away, but is supportive. Precautions/Special Considerations: Full code, up with assistance, NPO, at risk for falls, SBP <160 Subjective: This arm went to hell, regarding RUE Objective: Seen today for OT evaluation. Cognitive Status/Behavior: ?? Behavior / Mood: alert and cooperative ?? Alert and oriented to: person, place, time and situation ?? Follows commands: 2 step and 100% of the time ?? Attention: WFL ?? Safety awareness: WFL Vision & Perception: ?? WNL/WFL ?? 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 Stereognosis intact Activities of Daily Living: Self-feeding: Setup assistance Grooming: Setup assistance Dressing: Mod A for threading pants and max A for socks; Pt noted with difficulty with functional use of RUE and grasp/release Bathing: Did not assess Toileting: Transfer: Recommend two person min A with cues for sequencing with FWW Hygiene: Anticipate min A for thoroughness; Pt required dependent assistance for perineal hygiene instanding Functional Mobility: Supine to sit: Min A for RLE towards L with HOB slightly elevated Sit to stand: Min A to FWW with cues for hand placement Ambulation: Min Ax2 with FWW and cues for sequencing/to maintain grasp on FWW Stand to sit: CGAx2 with cues for hand placement Sit to supine: Did not assess; Pt left up in recliner chair with all needs within reach Balance: Sitting balance: Good for static Standing balance: Fair with FWW and 2 person assistance Vitals: Within parameters; initially on 2 L/min, but transitioned to RA and tolerated Pain: 0/10 Skin: Appeared intact Education: patient have been educated on Role of occupational therapy/rehabilitation, Transfers, Assistive device/technique, ADL, Positioning, Safety, Functional Mobility, Balance, Recommendations and Discharge planning and verbalize understanding. Discussed getting velcro sneakers (Pt would benefit from AFO) for Pt and having family bring in elastic waist pants Patient status, treatment, and mobility recommendations discussed with nursing. Assessment: Pt has been seen for occupational therapy evaluation. Betsy Laird presents with the following performance skill [...] PT services. Pt participated in transfer OOB, LB dressing and in transfer retraining. Pt noted with decreased use of R liliane-body and benefits from assistance for all ADL and transfers. Pt is significantly below baseline at this time and will benefit from transfer to acute inpatient rehab facility to maximize function. Pt would benefit from [facility] inpatient OT interventions to address performance deficits and maximize participation and independence with occupations of daily living. Equipment needs at discharge: TBD Anticipated Discharge Disposition (OT): acute rehabilitation facility Other Recommendations: ?? Utilize upright chair position using bed features or transfer to recliner chair as appropriate with min Ax2 with FWW, ambulate as tolerated ?? Encourage participation in ADL's by providing set up A on tray table and physical assist only as needed Other Recommendations: No other consults recommended at this time Goals: To be achieved by 07/09/21. 1. Pt will be min A for LB dressing routines with AE as needed at seated/standing levels 2. Pt will be min Ax1 for toileting routine at ambulatory level with LRAD 3. Pt will be min A for UB dressing routines 4. Pt will be independent for HEP for BUEs 5. Pt will be able to stand for 8 minutes to perform sink level grooming task with LRAD?? Plan: OT: Therapy Frequency (OT): 3-5 times/wk Planned OT interventions: Role of occupational therapy/rehabilitation, Transfers, Assistive device/technique, Adaptive equipment training, ADL, Exercise, Breathing exercises, Positioning, Safety, Precautions/Protocol, Functional Mobility, Activity pacing/Energy conservation, Home Program, Home Management, Balance, Recommendations, Family training and Discharge planning. Total Minutes, Occupational Therapy: 35 (1 mod eval (11:05-11:45)) OT Evaluation Code Rationale: ?? Diagnosis & [...] instrument andmeasurable assessment of functional outcome. Pager: [phone] Radha Gramajo OT 06/29/2021 Occupational Therapy Rehabilitation Department Mayr Lemus MD - 06/29/2021 2:00 PM EDT [facility] Medicine Attending Daily Progress Note Patient Name: Betsy Laird Service: Hospital Medicine Admit Date: 06/28/2021 Hospital Day: 1 Date of Service: 06/29/2021 Patient Description: Betsy Laird is a 75 y.o. male with pmh significant for CAD s/p CABG, hx of tobacco use who presents with new neurological deficits and has been found to have likely primary lung with brain mets with vasogenic edema. ASSESSMENT AND PLAN Active Problems: Active Hospital Problems Diagnosis ??? 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 Lung Cancer, metastatic stage IV, type not identified ??? Cigarette nicotine dependence with withdrawal ??? CAD (coronary artery disease), HLD Resolved Hospital Problems No resolved problems to display. Lung Cancer, metastatic stage IV, type not identified He has evidence of a right hilar mass on CT scan that could be suggestive of primary lung malignancy. Evidence of metastasis to the brain. PLAN -Pulmonology consulted to obtain biopsy Brain metastasis, Vasogenic Edema, Seizure secondary to vasogenic edema and brain mass, neurologicaldeficits Patient presenting with right lower extremity weakness, inability to ambulate without assistance, and more recent development of right upper extremity weakness. MRI showing multiple bilateral intracranial lesions-largest lesion is in the left frontal lobe with surrounding vasogenic edema. Imaging is most consistent with metastasis and patient has concurrent hilar mass which is the likely primary malignancy. Neurosurgery has been consulted and recommends biopsy of the right hilar lung mass and is planning on performing the debulking procedure on 06/29 due to extent of the vasogenic edema. PLAN -Q4 neuro checks -SQH ok per neurosurgery -Continue decadron -Lung tumor biopsy per Pulm -Neurosurgery consulted, intervention recommended -Neurology consulted for seizures - continue keppra Cigarette nicotine dependence with withdrawal Patient has chronic nicotine dependance who quit smoking several days prior to admission. PLAN -Recommend cessation and abstinence -Nicotine patch CAD (coronary artery disease), HLD CAD s/p CABG in 2019. PLAN -Continue ASA, Atorvastatin, and BB # Routine: - Prophylaxis: DVT: SQ lovenox Glycemic control: As above - Nutrition: NPO diet (Give Meds) - Code Status: Attempt Cardiopulmonary Resuscitation - Inpatient - Family Communication- -Disposition: Pending course, anticipate potential for rehab vs. Home services after neurosurgical intervention SUBJECTIVE -Major 24 Hour Events: - Admitted overnight. Seen by neurology, neurosurgery, and pulmonology. Biopsy scheduled for tomorrow. Patient was evaluated and examined at bedside. Denies any pain, SOB, chest pain or other major complaints. OBJECTIVE BP 132/76 Pulse 55 Temp 36.8 ??C (98.2 ??F) (Axillary) Resp 21 Ht 177.8 cm (5' 10) Wt 77.6 kg (171 lb 1.2 oz) SpO2 92% BMI 24.55 kg/m?? Temp (24hrs), Av.8 ??C (98.3 ??F), Min:36.8 ??C (98.2 ??F), Max:36.9 ??C (98.4 ??F) Intake/Output Summary (Last 24 hours) at 06/29/2021 1432 Last data filed at 06/29/2021 1151 Gross per 24 hour Intake 130 ml Output 300 ml Net -170 ml Vitals: Last Value Range Last 24 hrs Temperature Temp: 36.8 ??C (98.2 ??F) Temp: [36.8 ??C (98.2 ??F)-36.9 ??C (98.4 ??F)] Heart Rate Heart Rate: 55 Heart Rate: [55-107] Blood Pressure BP: 132/76 BP: (110-154)/(65-86) Respiratory Rate Resp: 21 Resp: [9-23] SpO2 SpO2: 92 % SpO2: [91 %-96 %] Weight: Last: 77.6 kg (171 lb 1.2 oz) I/Os: 06/28 0701 - 06/29 0700 In: 130 [P.O.:120; I.V.:10] Out: - Admit: 77.11 kg Physical Exam Constitutional: General: He is not in acute distress. Appearance: He is not ill-appearing or diaphoretic. HENT: Head: Normocephalic and atraumatic. Nose: No congestion. Mouth/Throat: Mouth: Mucous membranes are moist. Pharynx: No oropharyngeal exudate. Eyes: General: No scleral icterus. Extraocular Movements: Extraocular movements intact. Pupils: Pupils are equal, round, and reactive to light. Cardiovascular: Rate and Rhythm: Normal rate and regular rhythm. Heart sounds: No murmur heard. Pulmonary: Effort: Pulmonary effort is normal. No respiratory distress. Breath sounds: Normal breath sounds. No stridor. No wheezing, rhonchi or rales. Abdominal: General: Abdomen is flat. Bowel sounds are normal. There is no distension. Palpations: Abdomen is soft. Tenderness: There is no abdominal tenderness. There is no guarding. Musculoskeletal: General: No swelling or deformity. Normal range of motion. Right lower leg: No edema. Left lower leg: No edema. Skin: General: Skin is warm and dry. Coloration: Skin is not jaundiced or pale. Findings: No bruising, erythema, lesion or rash. Neurological: Mental Status: He is alert and oriented to person, place, and time. Cranial Nerves: No cranial nerve deficit. Sensory: No sensory deficit. Motor: Weakness present. Comments: Right upper and lower extremity weakness Psychiatric: Mood and Affect: Mood normal. Behavior: Behavior normal. LABS CBC: Recent Labs 06/28/211921 WBC 10.7* HGB 14.3 PLATELET 376* BMP: Recent Labs 06/28/211921 NA 138 K 4.0 CL 102 CO2 22 BUN 17 CREATININE 0.91 GLUCOSE 118 Calcium, Magnesium, Phosphate: Recent Labs 06/28/211921 CALCIUM 9.4 LFTs: No results for input(s): AST, ALT, ALKPHOS, BILITOT, BILIDIR in the last 168 hours. Troponin: No results for input(s): TROPONINT, CK in the last 168 hours. ABG: No results for input(s): PHART, AQC1TAY, PO2ART, UDM3VSP in the last 168 hours. Coags: Recent Labs 06/28/212137 PT 12.3 PTT 33 INR 1.1 MICRO Microbiology Results (Last 30 days) Procedure Component Value Units Date/Time COVID-19 PCR [[id number]] Collected: 06/28/212102 Lab Status: Final result Specimen: Nasopharyngeal Swab Updated: 06/28/212353 SARS-CoV-2 RNA PCR Not Detected Comment: This [...] using the Simplexa COVID-19 Direct Assay by [employer] as authorized by the FDA issued Emergency [...] Department of Pathology and Laboratory Medicine at [facility], certified under the Clinical Laboratory [...] fact sheets at the following FDA website: https://www.fda.gov/medical-devices/madmdoanqbm-duvpvbn-5987-dwnyd-81-pikhozluy- fnp-gshwchslhujxbk-yipfbog-devices/oryfy-hqotrhfrgoo-guyl SARS-CoV-2 Source SPACE TECHNOLOGIST Swab RECENT IMAGING CT Head wo Contrast (Generic) Result Date: 06/28/2021 EXAMINATION: CT HEAD WO CONTRAST (GENERIC) CLINICAL HISTORY: COMBINATION WELDER metastatic lesions suspected, initial workup; progressive right sided weakness r/o mets/bleed TECHNIQUE: CT head performed without intravenous contrast administration. COMPARISON: Brain MRI 06/28/2021 FINDINGS: There is a large peripherally hyperdense mass within the superior left frontal lobe which measures 3 x 2.7 x 2.6 cm in size withcentral low attenuation. There is extensive surrounding vasogenic edema and local mass effect, with mild kxby-ao-punbw subfalcine herniation, and effacement of the anterior left lateral ventricle thereis minimal 3 mm neuc-hp-caktx midline shift measured at the foramen of Monro. There is an additional3 cm hyperdense mass at the superior left vertex, with surrounding vasogenic edema with sulcal effacement. There is an additional 1.5 cm mass in the superior right frontal lobe (axial series 4 image 28) with additional small 5 mm lesion located more posteriorly (axial series 2 image 33). There is a right anterior middle cranial fossa arachnoid cyst which measures 3 x 2.4 cm in size with mild mass effect upon the anterior right temporal lobe. No extra-axial collections. There is extensive vasogenic ed julissa within the anterior and superior left frontal lobe. Global Cuellar matter white matter differentiation is otherwise well preserved. The orbits are unremarkable. The visualized paranasal sinuses are clear. The mastoid air cells are clear. No suspicious osseous lesions. No calvarial fracture. Normal ext racalvarial soft tissues. 1. Multiple large hyperdense masses within the superior left frontal lobe with extensive surroundingedema. There are additional small hyperdense masses in the superior right frontal lobe. Findings aremost consistent with metastases. The degree of edema and mass effect is unchanged. 2. Small right middle cranial fossa arachnoid cyst. Thank you for letting us participate in the care of this patient. If you are a health care provider and have any questions regarding this report, please contact the number below. For patients who have questions please contact the health acute care physical therapist that requested your imaging first. Chest PA & Lateral (Generic) Result Date: 06/28/2021 EXAMINATION: XR CHEST PA AND LATERAL (GENERIC) CLINICAL HISTORY: new brain mass, cough TECHNIQUE: PAand lateral views of the chest, 3 images COMPARISON: None FINDINGS: There are median sternotomy wires. There is abnormal prominence of the right hilar contour. The left hilum is normal. No focal consolidation to suggest pneumonia. No pulmonary vascular congestion. No pneumothorax. No pleural effusions. Normal size of the cardiac silhouette. No acute osseous findings. Abnormal enlarged size of the right hilum concerning for adenopathy versus mass. Consider chest CT with contrast for further characterization. Thank you for letting us participate in the care of this patient. If you are a health care provider and have any questions regarding this report, please contact the number below. For patients who have questions please contact the health acute care physical therapist that requested your imaging first. Film Library- Storage Only MR Spine Result Date: 06/28/2021 This exam is auto-finalizing. It's purpose is for storage only. Film Library- Storage Only MR Head and Spine Result Date: 06/28/2021 This exam is auto-finalizing. It's purpose is for storage only. CT Chest Abdomen Pelvis w Contrast (Generic) Result Date: 06/29/2021 EXAMINATION: CT CHEST ABDOMEN PELVIS W CONTRAST (GENERIC) CLINICAL HISTORY: Metastatic disease evaluation new brain masses concerning for metastatic disease TECHNIQUE: Helical CT of the chest, abdomen,and pelvis was performed following the intravenous administration of contrast. Administered 88.0 ml of OMNIPAQUE 350.00 mg/ml. Oral contrast was administered. COMPARISON: Head CT and brain MRI dated 06/28/2021 FINDINGS: Chest: Lungs and large airways: Peripheral blebs at the upper lung zones, right greater than left. Cystic changes in the lungs consistent with centrilobular emphysema. Linear atelectasis or scarring left base greater than right. Pleura: No effusion. Heart/vasculature: Normal. Lymph nodes: 11 mm short axis precarinal node. Malignant appearing rim-enhancing nodes in the subcarinal region, 16 mm short axis and 15 mm short axis, images 57 through 64 series 3. Mediastinum and moni: Largeright hilar masses with relative low attenuation centrally. The cephalad mass best appreciated on image 53 of series 8 and image 53 of series 3 measures approximately 3.2 cm AP by 3.2 cm transverse by 3 cm in the craniocaudal dimension. The more caudal of the hilar masses measures approximately 3 cm AP by 2 cm transverse by approximately 2 cm in the craniocaudal dimension. This has a appearance of a conglomerate lorene mass in the right hilar region. Abdomen/pelvis: Liver: 8 mm low-attenuation lesionposterior segment right lobe liver near the dome image 88 series 3. 2 small to characterize. No other liver lesion. No intrahepatic ductal dilatation. Bile ducts: Nondilated. Gallbladder: No calcified gallstones. Normal caliber wall. Pancreas: Normal attenuation without ductal dilatation. Spleen: Normal. Adrenals: Normal. Kidneys: Asymmetric nephrograms. No obstruction. No mass. Urinary Bladder: Normal. Vasculature: Atherosclerotic changes of the of the aorta and iliac vessels without aneurysm. Lymph Nodes: No enlarged lymph nodes. Bowel: Nondilated, no wall thickening. Peritoneum and mesentery: Noascites, free air, or loculated fluid collection. No mesenteric inflammation. Abdominal wall: Fat-containing inguinal hernias, left larger than right. Tiny fat-containing umbilical hernia. Reproductiveorgans: Prostate enlargement, 5.9 cm. Osseous structures: No suspicious lesions. Disc space degenerative changes greatest at the L5-S1, L3-4 and L2-3 levels. Retrolisthesis of L5 on S1 greater than L3 on L4 and L2 on L3. Minimal anterolisthesis L4 on L5 related to facet arthropathy. 1. Right hilar masses with central low-attenuation suggesting necrosis. Pathologic mediastinal adenopathy. Findings likely represent primary lung cancer. 2. 8mm low-attenuation focus posterior segment right lobe of liver, too small to characterize. 3. Changes of centrilobular emphysema. Thank you for l etting us participate in the care of this patient. If you are a health care provider and have any questions regarding this report, please contact the number below. For patients who have questions please contact the health acute care physical therapist that requested your imaging first. Electronically signed by: Keo Wong MD, [facility] ([phone]), at 06/29/2021 1:59 AM Signed: Mary Lemus MD 06/29/2021 2:32 PM Hospital Medicine Team Pager: [phone] IPI Certification I certify that I am a D-H credentialed attending provider with admitting privileges and that the patient meets or has met medical necessity to require an inpatient IPI level of care meeting a minimum of two midnights or is on the [facility] inpatient only procedure list (status C) due to: Vasogenic edema with metastatic malignancy, seizure disorder, and neurological deficits requiring ongoing EEG monitoring, and possible surgical intervention of brain malignancy Hyacinth Mcwilliams, RD - 06/29/2021 12:07 PM EDT Nutrition Initial Note Betsy Laird is a 75 y.o. male who presents with progressive R sided weakness and R foot drop w/ imaging c/f metastatic cancer of brain requiring admission for expedited w/u and eval by rehabilitation given decrease in functional status. Patient has a pertinent medical history to include CAD s/p 4vCABG ~2019 @ [facility], tobacco use disorder in recent remission 5 days ago (58 pk/yr history Reason for intervention: MST evaluation Nutrition Recommendations: Adv to regular diet when medically appropriate Will add Ensure to trays as diet advances Active Orders Diet NPO diet (Give Meds) Frequency: Effective Now Number of Occurrences: Until Specified Lab Results Component Value Date NA 138 06/28/2021 K 4.0 06/28/2021 CL 102 06/28/2021 CO2 22 06/28/2021 BUN 17 06/28/2021 CREATININE 0.91 06/28/2021 ESTGFR 83 06/28/2021 CALCIUM 9.4 06/28/2021 No results found for: POCGLU Skin Status: Shift Pressure Injury Prevention Occiput: No Injury Thoracic Spine: No Injury Sacral: No Injury Ischial - left: No Injury Ischial - right: No Injury Heel - left: No Injury Heel - right: No Injury Elbow - left: No Injury Elbow - right: No Injury Device Sites: O2 sat monitor, IV sites, ECG Leads Relevant medications:Decadron 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 as calculated from the following: Height as of this encounter: 177.8 cm (5' 10). Weight as of this encounter: 77.6 kg (171 lb 1.2 oz). [place] Body Weight: 75.5 kg Usual Body Weight: reported as stable Wt Readings from Last 10 Encounters: 06/29/21 77.6 kg (171 lb 1.2 oz) Assessment: Estimated needs: Calories: 1925 (25 kcal/kg) Protein: 100 grams (1.3 g/kg) Nutrition Focused Physical Exam (NFPE): Not performed Nutrition intake and intake history/Interview: Pt seen per MST. 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 before that with no change in wt or ill fitting clothes. He is currently hungry but NPO for tests. He is very agreeable to Ensure on trays once his diet advances. Protein-calorie Malnutrition: Not identified (LINDA Boles J Parenteral Enteral Nutr. 2011;36(3): 273-83) Nutrition to continue to follow up while inpatient HYCAINTH MCWILLIAMS RD Pager #[phone] Dexter Emmanuel PT - 06/29/2021 11:45 AM EDT Physical Therapy Evaluation Patient profile: Betsy Laird is a 75 y.o. male admitted on 06/28/2021 by Teena Armas to [facility] ED with R sided weakness progressed over a month with R foot drop and MRI of brain c/w metastatic brain cancer and referred to [facility]. MRI of his lumbar spine which showed multilevel degenerative disease. Vasogenic edema, continue decadron. Seizure-like activity so Neurology placed EEG monitor 06/29: No seizures or epileptiform discharges were observed. Imaging showing R hilar lung mass. Surgical consideration pending lung biopsy results Patient with the following active problems: CAD s/p 4vCABG ~2019 @ [facility], tobacco use disorder in recent remission 5 days ago (58 pk/yrhistory). Social History: Lives alone in [place], [place] in a one level home with stairs & ramp to enter. Ramp has 2 railings. He does have laundry in basement. Bathroom Set-up: cut-out tub shower. Baseline Mobility: Retired, active according to daughters, Independent up until a month ago, out plowing this past winter, drives, grocery shops, manages his own finances, and manages his own home. Equipment at home: walker and wheelchair : he obtained in last month. Fall history: few falls recently with R sided weakness, able to get self up from floor, no injuries. Precautions/Special Considerations: Fall risk, up with assist SBP< 160, Regular diet Mobility and Positioning Recommendations: ?? Pt. should utilize walker and 2 person assist for ambulation and transfers with nursing. ?? Please encourage up to chair for meal times as able. ?? Pt encouraged to ambulate short distance with staff & getting into the bathroom. Subjective: ???One of my daughter's lives 3 miles away and works part-time but is raising a family and my other daughter is near the [place] and works full-time?? Objective: Pt seen for evaluation this morning, 2 daughter's visiting: Pain: denies Cardiopulmonary: HR: 57 bpm SpO2: 94 % RA BP: 132/76 mmHg Mental Status: alert, oriented to person, place, and time, follows commands. Musculoskeletal: (R) hand dominant ROM: decreased AROM R side due to limited strength but able to move R UE and R LE except unable to move R foot. Strength: 0/5 R foot, otherwise grossly 3+/5 R LE hip flex and knee extension and 3/5 knee flexion, 2-/5 hip IR/ER. Weak R shoulder 2+/5 and 3/5 elbow/wrist and hand. Sensation: grossly intact although did get some area's incorrect/inconsistant and reports numbnessR side. Bed Mobility: Supine > Sit: minimum assist & HOB raised towards his L side. Transfers: Sit to Stand: Min A x 2 with rolling walker Stand to Sit: contact guard assist, of 2 persons with cues to reach back Bed to Chair: walker and Min A x 2. Gait: Distance: 25' Device used: rolling walker & gait belt Level of assist: minimum assist x 2 Gait mechanics: [id number] with cues for sequence, having to push up on toes on L to clear R foot,will benefit from AFO once daughter's bring in footwear. (daughter's willing to buy him and bring insneakers with velcro). Stairs: not assessed today; he does have a ramp to enter home. Balance: Sitting: GOOD- able to sit EOB and work on dressing lower body. Standing / Gait: FAIR- walker and 2 assist with gait belt. Education: family and patient has been educated on Safety , Role of therapy and Discharge planning. Briefly discussed rehab prior to home and few available in [place] and based on medical plan of care also (initial phase of planning and thinking). Explained alarm system and reminded to call for staff. Pt was left in recliner chair with call lozano within reach and seat alarm in place. Patient status, treatment, and mobility recommendations have been discussed with nursing. Assessment: Pt was seen today for physical therapy evaluation. Pt presents with deficits in AROM / flexibility, Strength on right, balance and sensation, coordination R side, R foot drop, fall risk. Helives alone and is R hand dominant. Patient came in to hospital with headaches and since betsy najera reports pain, also had cough, COVID negative, stopped smoking, & work-up ongoing for lungmass and imaging of brain c/w metastasis. These impairments currently impact patient's ability to safely and independently perform functional mobility tasks including bed mobility, transfers, ambulation, stair negotiation and daily activities. The pt would benefit from skilled therapy services while in the hospital & then to rehab to maximize functional abilities to assess if he's able to regain (I) and safety to return home and live alone again. Plan: Therapy Frequency (PT): 2-4 times/wk for balance training, bed mobility training, gait training, home exercise program, patient/family education, range of motion, stair training, strengthening, stretching and transfer training, wheelchair training, discharge planning. Patient/family understand and agree with plan. Discharge Recommendations: Acute Rehab when medically ready for hospital discharge. Consult Recommendations: CM for d/c planning w/ pt & family along with referral process for d/c Equipment needs: Anticipated Equipment Needs at Discharge (PT): to be determined (@ rehab facility: he has walker & w/c @ home) Goals: To be achieved by 07-14-21: 1. Pt. to demonstrate knowledge of safety precautions by appropriately requesting assistance to mobilize. 2. Pt. to demonstrate understanding of appropriate exercises to help AROM/strength R side. 3. Pt. to perform bed mobility with modified independence. 4. Pt. to perform sit><stand transfers with modified independence and with supervision using afront wheeled walker. 5. Pt. to ambulate 50 feet with modified independence and with supervision using a a front wheeled walker. 6. Pt able to maneuver self in w/c household distances and remember to lock brakes before transfer with modified (I). 7. Pt will tolerate activity progression with stable pain level & vital signs. Thank you for this consult. DEXTER EMMANUEL, PT Pager: [phone] Physical Therapy Inpatient Rehabilitation Department Time IN / OUT: 01-20:45 Total Minutes, Physical Therapy: 45 (EV) 2017 PT Evaluation Code Rationale: ?? Diagnosis & Pertinent Co-Morbidities, personal factors, and present illness affecting Plan ofCare: (see above); Additional personal factors or co- morbidities that impact plan: ?? Total # of Factors: 0 1-2 3+ x ?? Examination of body system impairments, functional limitations and behaviors, and/or participation restrictions. Addressing 1-2 elements Addressing 3 + elements Addressing 4 + elements x ?? Clinical presentation: See assessment above. Stable/Uncomplicated Evolving/Fluctuating Symptoms Unstable/Unpredictable x ?? Clinical decision making of high complexity based on pt's functional performance as outlined in this evaluation. Merly Casiano RN - 06/29/2021 7:59 AM EDT Shift Summary 1987 Assessment done, Patient sitting up in bed, alert oriented x4, R sided weakness, unable to wiggle R foot toes, able to lift R leg, strong R hand honing machine set up operator tool but unable to lift arm at shoulder for longer periods. Patient on 2 l NC sat 93%, SB on monitor. NPO since floor admission (~0300) . Merly Casiano RN Andrew Monroe MD - 06/29/2021 6:30 AM EDT NEUROSURGERY PROGRESS NOTE ID: Betsy Laird is a 75 y.o. male right-handed on ASA81 (has not taken for a few days) with PMH tobaccouse, CAD s/p CABG, who presented to OSH with 3-4 week history of initially RIGHT lower extremity weakness, inability to ambulate without assistance x1 week, and approximately 5 day history of RIGHT upper extremity weakness. MRI exhibited multiple bilateral intracranial lesions, the largest of which are in the LEFT frontal lobe with surrounding vasogenic edema concerning for metastases given a R hilarlung mass as well. INTERVAL Hx: -Reports of seizure overnight seen by neurology MEDICATIONS: Scheduled Meds: ??? metoprolol tartrate 12.5 mg Oral Q8H CORIN ??? sodium chloride 0.9 % (flush) 5 mL Intravenous BID ??? melatonin 6 mg Oral Nightly ??? levETIRAcetam 1,000 mg Oral BID ??? dexamethasone 4 mg Oral Q6H CORIN ??? atorvastatin 80 mg Oral QPM ??? pantoprazole EC 40 mg Oral Daily Continuous Infusions: PRN: sodium chloride 0.9 % (flush), 5-20 mL, Q1 Min PRN lidocaine, 0.3 mL, Once PRN acetaminophen, 975 mg, Q8H PRN EXAM: Temp: [36.8 ??C (98.2 ??F)-36.9 ??C (98.4 ??F)] Heart Rate: [65-107] Resp: [9-23] BP: (118-154)/(67-86) SpO2: [91 %-96 %] Heart Rate from SpO2: [59 bpm-102 bpm] I/O: Intake/Output Summary (Last 24 hours) at 06/29/2021 0550 Last data filed at 06/29/2021 0400 Gross per 24 hour Intake 130 ml Output -- Net 130 ml GEN:NAD NEURO: AA+Ox3 Speech fluent and appropriate. Naming and repetition intact. PERRL. EOMI. Visual sherwood full to confrontation. No facial asymmetry Tongue midline MOTOR: RUE: proximally 4/5, distally 4+/5 LUE:5/5 RLE: 4+/5 except DF, EHL 0/5 and PF 1/5 LLE: 5/5 Numbness in RUE and RLE Sensation intact in L side LABS: Recent Labs 06/28/211921 WBC 10.7* HGB 14.3 PLATELET 376* Recent Labs 06/28/211921 NA 138 K 4.0 CL 102 CO2 22 BUN 17 CREATININE 0.91 Recent Labs 06/28/212137 PT 12.3 INR 1.1 IMAGING: None new Assessment: 75 y.o. male right-handed on ASA81 (has not taken for a few days) with PMH tobacco use, CAD s/p CABG, who presented to OSH with 3-4 week history of initially RIGHT lower extremity weakness,inability to ambulate without assistance x1 week, and approximately 5 day history of RIGHT upper extremity weakness. MRI exhibited multiple bilateral intracranial lesions, the largest of which are in the LEFT frontal lobe with surrounding vasogenic edema concerning for metastases given a R hilar lung mass as well. Recommend lung tumor biopsy first to guide management. If NSCLC the mets in the left frontal lobe could certainly be resected/debulked; if SCLC then surgery would not be needed. Plan: -Q4 neuro checks -SQH ok -Continue decadron -Lung tumor biopsy -Surgical consideration pending lung biopsy results -Neurology consult for seizures, defer AEDs to them -Rest of care per primary team For question please call NSGY pager [phone] Andrew Monroe MD 06/29/2021 5:50 AM Clinical Documentation Improvement: Active Hospital Problems Diagnosis ??? Brain lesion Resolved Hospital Problems No resolved problems to display. documented in this encounter H&P Notes Daja Hoffmann PA - 06/30/2021 2:51 PM EDT NEUROCRITICAL CARE HISTORY & PHYSICAL Date of Admission: 06/28/2021 7:02 PM HPI: Betsy Laird is a 75 y.o. PMH CAD s/p CABG and former tobacco abuse (reported to have quit ~2016) presenting with R sided weakness found to have multiple large hyperdense masses within now s/p Left frontal and L parietal craniotomy with resection of lesions. 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 His weakness progressed to him needing a walker at him and then he began to notice right upper extremity weakness. He saw an outpatient neurologies who recommended MRI L-spine which noted DJD. Due to his continued weakness,he was taken to [facility] where MRI brain and c-spine revealed multiple intracranial lesions concerning for metastases. Neurologic examination on admission noted strength 4/5 on RUE and RLE. He was started on decadron for vasogenic edema and admitted to the medicine service for further workup of his metastatic disease. CT chest/abdomen/pelvic revealed a right hilar mass with central low-attenuation concerning for primary lung cancer. During admission, pt noted to have RUE focal seizure like activity for which he was started on Keppra and placed on 1hour EEG, which was consistent with known frontal lesion with no seizures or epileptiform discharges noted. Today, pt underwent L frontal craniotomy with resection of lesion. Uncomplicated case per NSGY and aneshtesia. 50EBl, 1200mL IVF, ROS: Gen: denies fever, chills, fatigue, malaise, weight loss Eyes: denies blurring, diplopia, vision loss, photophobia CV: denies chest pain, palpitations, lightheadedness, syncope, dyspnea on exertion Resp: denies SOB, cough GI: denies nausea, vomiting, diarrhea, constipation, abdominal pain Neuro: as per HPI; denies weakness, PINEAD, paresthesias, seizures, tremors, vertigo, balance problems History reviewed. No pertinent past medical history. [...] of beer per week Comment: Not recently Medications Prior to Admission Medication Sig Dispense Refill Last Dose ??? furosemide (Lasix) 20 mg Tablet Take 20 mg by mouth daily. Past Week at Unknown time ??? metoprolol succinate XL (Toprol-XL) 25 mg Tablet Sustained Release 24 hr Take 37.5 mg by mouth nightly. Past Week at Unknown time ??? atorvastatin (Lipitor) 80 mg Tablet Take 80 mg by mouth every evening. Past Week at Unknown time ??? aspirin EC 81 mg Tablet, Delayed Release (E.C.) Take 81 mg by mouth daily. Past Week at Unknown time ??? [DISCONTINUED] furosemide (Lasix) 20 mg Tablet Take 20 mg by mouth daily. Past Week at Unknown time ??? ibuprofen (ADVIL;MOTRIN) 200 mg tablet Take 600 mg by mouth every 6 hours as needed for Pain. Past Month at Unknown time Vital Sign Ranges: Last value Range last 24 hrs Temperature Temp: 36.6 ??C (97.9 ??F) Temp: [36.4 ??C (97.6 ??F)-36.6 ??C (97.9 ??F)] Heart Rate Heart Rate: 55 Heart Rate: [55-72] Blood Pressure BP: 125/74 BP: (112-155)/(67-80) Respiratory Rate Resp: 15 Resp: [13-17] SpO2 SpO2: 91 % SpO2: [87 %-96 %] Art BP BP (Arterial Line): -- Lines/Drains/Airways: Peripheral IV Line - Single Lumen 06/28/211925 basilic vein (medial side of arm), right 18 gauge (Active) Indication/Daily Review of Necessity fluid therapy continuous 06/30/21 0833 Site Preparation/Maintenance dressing: dry and intact 06/29/2122 Securement arm board, secured to;site guard in place 06/30/21832 Patency/Maintenance flushed without difficulty 06/30/21832 Phlebitis 0-->no symptoms 06/30/21 0745 Infiltration 0-->no symptoms 06/30/21 0745 Site Signs/Symptoms no redness;no swelling;no pain;no drainage;no streak formation 06/29/21 0023 Labs: Recent Results (from the past 24 hour(s)) Basic Metabolic Panel (non-fasting) Result Value Ref Range Glucose Lvl 180 65 - 199 mg/dL BUN 23 (H) 10 - 20 mg/dL Creatinine 1.20 0.80 - 1.50 mg/dL Sodium 134 (L) 135 - 145 mmol/L Potassium 4.2 3.5 - 5.0 mmol/L Chloride 97 (L) 98 - 107 mmol/L CO2 25 22 - 31 mmol/L Anion Gap 12 5 - 15 mmol/L Calcium 9.4 8.5 - 10.5 mg/dL Estimated GFR 59 (L) >=60 mL/min/1.73 m?? Magnesium Result Value Ref Range Magnesium 0.97 0.69 - 1.07 mmol/L Hemogram Result Value Ref Range WBC 16.9 (H) 4.0 - 9.5 x10(3)/mcL RBC 4.48 (L) 4.58 - 5.54 x10(6)/mcL Hemoglobin 13.1 (L) 13.7 - 16.5 g/dL Hematocrit 38.7 (L) 40.5 - 48.5 % MCV 86.4 82.9 - 93.1 fL MCH 29.2 27.5 - 32.1 pg MCHC 33.9 32.0 - 35.7 g/dL Platelets 374 (H) 145 - 357 x10(3)/mcL RDWSD 38.6 36.0 - 45.0 fL RDWCV 12.1 11.4 - 13.8 % MPV 10.0 7.6 - 12.9 fL nRBC % Auto 0.0 % nRBC Abs Auto 0.000 0.000 - 0.000 x10(3)/mcL Differential, Automated Result Value Ref Range Neutrophils % 89.3 % Neutr Abs (ANC) 15.13 (H) 1.70 - 6.10 x10(3)/mcL Lymphocytes % 6.1 % Lymphocytes Abs 1.0 0.9 - 3.2 x10(3)/mcL Monocytes % 4.0 % Monocyte Abs 0.7 0.3 - 0.9 x10(3)/mcL Eosinophils % 0.0 % Eosinophils Abs 0.0 0.0 - 0.4 x10(3)/mcL Basophils % 0.1 % Basophils Abs 0.0 0.0 - 0.1 x10(3)/mcL Immature Gran % 0.50 % Beba Gran Abs 0.08 (H) 0.00 - 0.04 x10(3)/mcL Imaging: CT H wo contrast (06/28/2021) 1. Multiple large hyperdense masses within the superior left frontal lobe with extensive surrounding edema. There are additional small hyperdense masses in the superior right frontal lobe. Findings are most consistent with metastases. The degree of edema and mass effect is unchanged. 2. Small right middle cranial fossa arachnoid cyst. ?? CT Chest Abdomen Pelvis w contrast (06/28/2021) IMPRESSION 1. Right hilar masses with central low-attenuation suggesting necrosis. Pathologic mediastinal adenopathy. Findings likely represent primary lung cancer. 2. 8mm low-attenuation focus posterior segment right lobe of liver, too small to characterize. 3. Changes of centrilobular emphysema. ?? Physical Exam: Gen: elderly appearing gentleman, pleasant Resp: CTAB, no accessory muscle use CV: RRR Abd: soft, nt/nd Ext: wwp , neg edema Neuro: alert to person/place/situation, states I don't know to year; pupils 4mmBL, briskly reactive to light, limited visual field testing (baseline), tongue protrudes midline, strength 4/5 RUE 5/5 LUE, 4/5 RLE, 5/5 LLE, sensation intact to light touch throughout ASSESSMENT & PLAN: Betsy Laird is a 75 y.o. PMH CAD s/p CABG and former tobacco abuse (reported to have quit ~2017) presenting with R sided weakness found to have multiple large hyperdense masses s/p Left frontal craniotomy and L parietal craniotomy with resection of lesions. Admitted to the [facility] for close neurologic monitoring post operatively. # Neuro- > multiple intracranial lesions concerning for mets, now s/p L frontal And L parietal craniotomy With Resection of lesions POD #0 > new onset seizures - q1h neuro checks, VS - MRI brain w/wo for post-op eval of tumor resection - dex 4q6 - keppra 1000mg BID - HOB > 30 deg - analgelsia: tylenol, oxycodone prn # CV - > hx CAD s/p CABG > hx HLD - SBP goal < 160 - maintain arterial line for close BP monitoring - continue atorvastatin 80mg nightly - hold home aspirin 81 mg post operatively - continue metoprolol 12.5 mg TID # Pulm - > R hilar masses > hx tobacco abuse - goal O2 sats > 92% - continue chest PT/pulm toileting - continue nicotine replacement # GI - - diet: sips/chips for now --> ADAT - maintain bowel reg - GI ppx while on dex c protonix # FEN/ - > hyponatremia, hypochloremia ? Volume status - continue IVF - daily BMP, Mg, PO4 # Heme - - daily CBC - SCDs only for DVT ppx, hold chemoppx # Endo - - goal glucose 120-180 --> ISS while on dex # ID - > leukocytosis, afebrile, likely reactive / related to recent steroid use - for temp > 38.4 C --> UA, CXR, blood cx, sputum cx - tylenol PRN T/L/D - arterial line, PIV x 2 Code Status - Attempt Cardiopulmonary Resuscitation - Inpatient Dispo - [facility] MARCUS Nguyen Neurocritical Care Team Pager [phone] Juan Gaytan DO - 06/28/2021 10:22 PM EDT Images from the original note were not included. Hospital Medicine History and Physical Patient info: Name: Betsy Laird : 1945 PCP: Myriam Riggins MD (Inactive) PCP phone number: [phone] Date of Admission: 06/28/2021 ( Hospital Day 0 days ) Responsible Attending:Juan Gaytan, DO Active Hospital Problems Diagnosis ??? Brain lesion Resolved Hospital Problems No resolved problems to display. There are no active non-hospital problems to display for this patient. ID: Betsy Laird is a 75 y.o. male who presents with progressive R sided weakness and R foot drop w/imaging c/f metastatic cancer of brain requiring admission for expedited w/u and eval by rehabilitation given decrease in functional status. 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 He has 2 daughters, 1 who lives close to him and in the setting of progressive weakness she got him a walker to help him get around around a week ago. A few days ago he started having right upper extremity weakness and was seen by an outpatient neurologist who ordered an MRI of his lumbar spine which showed multilevel degenerative disease. He presented to [facility] yesterday where he underwent an MRI brain and C-spine that showed multiple intracranial lesions concerning for metastasis. He then presented to [facility] ED this afternoon. Associated symptoms include intermittent headaches over the last few weeks which she has been taking as needed ibuprofen to good effect. Mild productive cough that started yesterday. He has been swallowing the sputum so he cannot further characterize it. Denies nausea, vomiting, numbness, weakness, paresthesias, LOC/falls, bowel or bladder symptoms. He lives independently but has family support in his local daughter. Retired 3 years ago, worked [employer] in many roles over the years before retiring. Drinks 2 beers/night, last drink was before symptoms started. Denies illicit drug use. Quit tobacco use after he felt like I didn'twant to anymore, 5 days ago. 58 pk year history, started at age 17. Takes his medications as prescribed, not missing doses. Was seen by PCP last August, underwent screening CT lung for lung Ca. Was toldhe has several nodules, but on serial imaging they were deemed low risk and he was due for annual f/u this coming August. Last colonoscopy was 20+ years ago in his 50's. Was told it was normal so never un derwent repeat. Saw a lay up operator last 3 years ago but was stable s/p CABG so did not return and PCP has taken over cardiac care. [facility] ED: V/S: Afebrile, heart rate 70s, mildly hypertensive 154/86, normal RR, SpO2 91- 96% ORA Pertinent w/u: CBC: Mild leukocytosis 10.7, Hgb 14.3, mild thrombocytosis at 376 BMP: WNL Coags: WNL Head CT: Multiple large hyperdense masses within superior left frontal lobe with extensive surrounding edema as well as small hypodense masses in superior right frontal lobe most C/W metastasis. CXR 2 view: Abnormal right hilum concerning for adenopathy versus mass consider chest CT for furthercharacterization Neurosurgery evaluated patient and recommended IV steroids for vasogenic edema secondary to metastasis. Recommended admission to medicine and CT CAP for further work-up. Medicine called to admit After initial eval paged by RN for new RLE and RUE seizure like activity. Resolved by time I was able to re-eval. Pt stated this has been happening every night for past week. He denies ever loosing consciousness, bowel/bladder incontinence, tongue biting. Exam on reeval was sig for 0/5 strength in entire RUE (1/5 in fingers) and 3/5 in entire RLE (aside from R foot dorsiflexion 0/5). ROS: Positive findings are BOLDED. GEN: Fever, chills, fatigue, drenching nocturnal sweats, unexpected weight change, anorexia. HEENT: Change in vision, hearing, smell, taste. CV: chest pain, palpitations, orthopnea, paroxysmal noctural dyspnea PULM: dyspnea, cough, wheezing, sputum production ABD: abdominal pain, dysphagia, odynophagia, nausea, vomiting, diarrhea, constipation, melena, hematochezia. : dysuria, hematuria NEURO: anesthesia, paresthesia, asymmetric weakness, headache, seizures SKIN: rashes, ulcers HEM: Bleeding, bruising MSK: arthralgia, arthritis, myalgia PSYCH: Depression No past medical history on file. No past surgical history on file. No family history on file. Social History Socioeconomic History ??? Marital status: Spouse name: Not on file ??? Number of children: Not on file ??? Years of education: Not on file ??? Highest education level: Not on file Occupational History ??? Not on file Tobacco Use ??? Smoking status: Not on file ??? Smokeless tobacco: Not on file Substance and Sexual Activity ??? Alcohol use: Not on file ??? Drug use: Not on file ??? Sexual activity: Not on file Other Topics Concern ??? Not on file Social History Narrative ??? Not on file Social Determinants of Health Financial Resource Strain: Not on file Food Insecurity: Not on file Transportation Needs: Not on file Physical Activity: Not on file Housing Stability: Not on file (Not in a hospital admission) Allergies Allergen Reactions ??? Cis Free Text Allergy Environmental. CIS - Allergic Rhinitis Medications: Medications 06/28/210 Medication Sig Taking? metoprolol succinate XL (Toprol-XL) 25 mg Tablet Sustained Release 24 hr Take 37.5 mg by mouth nightly. Yes furosemide (Lasix) 20 mg Tablet Take 20 mg by mouth daily. Yes atorvastatin (Lipitor) 80 mg Tablet Take 80 mg by mouth every evening. Yes aspirin EC 81 mg Tablet, Delayed Release (E.C.) Take 81 mg by mouth daily. Yes ibuprofen (ADVIL;MOTRIN) 200 mg tablet Yes Objective: Vitals Last value Range last 24 hrs Temperature Temp: 36.8 ??C (98.3 ??F) Temp: [36.8 ??C (98.3 ??F)] Heart Rate Heart Rate: 81 Heart Rate: [77-81] Blood Pressure BP: 154/86 BP: (154)/(86) Art Line BP BP (Arterial Line): -- MAP (NBP): -- Respiratory Rate Resp: 19 Resp: [9-19] SpO2 SpO2: 91 % SpO2: [91 %-96 %] Oxygen Delivery Oxygen Therapy O2 Device: None (Room air) No intake or output data in the 24 hours ending 06/28/21 2222 Patient Vitals for the past 168 hrs: Weight 06/28/21 1643 77.1 kg (170 lb) Admit wt: 77.11 kg Physical Exam: Gen: NAD. HEENT:NC/AT. Anicteric. Non-injected. oropharynx nonerythematous. No exudates. Uvula midline and palate rises symmetrically. CV: Regular rhythm, normal rate. Normal S1 and S2. No M/R/G. Pulm: clear to ascultation bilaterally in the posterior lung sherwood. Abd: hypoactive bowel sounds. Soft, nondistended, nontender. Ext: no edema, clubbing, or cyanosis. Psych: cooperative. MS: AAOx4, clear language, no dysarthria, follows commands CN: PERRL, EOMI, visual sherwood full Facial sensation intact, no facial asymmetry Hearing intact to voice Palate elevates symmetrically, tongue protrudes midline SCM and trap strength intact (L>R) Motor: Decreased L sided bulk and tone. UE: 4/5 R, 5/5 L Arm abduction at shoulder 5/5 R, 5/5 L Elbow extension 5/5 R, 5/5 L Elbow flexion 4/5 R, 5/5 L Shredder Tender LE: 4/5 R, 5/5 L Hip flexion 4/5 R, 5/5 L Knee extension 4/5 R, 5/5 L Knee flexion 0/5 R, 5/5 L Foot dorsiflexion 4/5 R, 5/5 L Foot plantar flexion Sensation: Intact to light touch UE and LE b/l Reflexes: Not tested Coordination: Finger to nose intact, no dysmetria Rapid alternating movements & finger tapping smooth and symmetric Heel-gauthier intact No tremor Gait: Not tested Current Medications: ??? iohexoL (Omnipaque) radiology oral prep (50 mL of oral contrast) 240 mL Oral Once ### Followed by ??? iohexoL (Omnipaque) radiology oral prep (50 mL of oral contrast) 240 mL Oral Once ### Followed by ??? iohexoL (Omnipaque) radiology oral prep (50 mL of oral contrast) 240 mL Oral Once ### ??? [START ON 06/29/2021] dexamethasone 4 mg Oral Q6H CORIN ### ??? metoprolol succinate XL 37.5 mg Oral Nightly ### ??? atorvastatin 80 mg Oral QPM ### Labs: CBC: Recent Labs 06/28/211921 WBC 10.7* HGB 14.3 HCT 42.1 PLATELET 376* NEUTROABS 7.38* Chemistry: Recent Labs 06/28/211921 NA 138 K 4.0 CL 102 CO2 22 BUN 17 CREATININE 0.91 GLUCOSE 118 ANIONGAP 14 Recent Labs 06/28/211921 CALCIUM 9.4 LFT's: No results for input(s): BILITOT, BILIDIR, ALBUMIN, ALKPHOS, ALT, AST in the last 7068 hours. Coags: Recent Labs 06/28/212137 PT 12.3 INR 1.1 PTT 33 Cardiac enzymes: No results for input(s): TROPONINT, CK, PROBNP in the last 7068 hours. Endocrine: No results for input(s): TSH, CORTISOL in the last 7068 hours. Invalid input(s): [id number] No results for input(s): HA1C in the last 7068 hours. Heme: No results for input(s): LDH, HAPTOGLOBIN, URICACID in the last 168 hours. ABG: ABG (Arterial Blood Gas) No results found for: PHART, PO2ART, ASF1YOZ, USP3IKT Microbiology: Covid pending Pertinent radiology/diagnostic studies: CXR: Abnormal enlarged size of the right hilum concerning for adenopathy versus mass. Consider chest CT with contrast for further characterization. EKG: Pending CT CAP: Pending CT Head wo Contrast 06/28/21: 1. ??Multiple large hyperdense masses within the superior left frontal lobe with extensive surrounding edema. There are additional small hyperdense masses in the superior right frontal lobe. Findings are most consistent with metastases. The degree of edema and mass effect is unchanged. 2. ??Small right middle cranial fossa arachnoid cyst. ?? MRI Brain wwo Contrast 06/28/21 1227 OSH read: There are multiple metastatic appearing enhancing lesions in both sides of the brain, most prominenton the left side as described above in the frontal and parietal lobes and there is abundant surrounding white matter edema and mass effect upon the lateral ventricle and some shift of midline structures towards the opposite-right side, approximately 3-4 millimeters These lesions also exhibit some focal blooming signal on susceptibility imaging consistent with element of prior intra lesion hemorrhage ?? MRI Cervical Spine 06/28/21 1227 OSH read: 1. Multilevel chronic degenerative disc disease changes. No dominant disc herniation nor prominent central canal stenosis. There is an element of bilateral foraminal stenosis at C5-6 and C6-7 levels aswell as C7-T1. 2. However, the main findings in this patient today are in the brain where there are ominous ring-enhancing lesions with prominent surrounding white matter edema and mild shift of midline structures towards the right side. Please see that separate brain MRI report ?? MRI Lumbar Spine wo Contrast 06/24/21 1811 OSH read: 1. Multilevel degenerative changes in the lumbar spine resulting in central spinal canal and neural foraminal stenosis. 2. Left paracentral disc herniation at L3-4 with extrusion posterior to the L4 vertebral body. It causes left lateral recess stenosis and compresses the left L4 nerve root. ?? ASSESSMENT/PLAN: Betsy Laird is a 75 y.o. male w/ PMH of tobacco use disorder, CAD s/p CABG, lung nodule seen on screening CT scan in 2020 presenting with subacute, progressive right-sided weakness, new focal seizuresand headache found to have imaging concerning for metastatic cancer to brain with associated vasogenic edema. CXR shows right hilar adenopathy concerning for lung primary. CRC also considered but no GIsymptoms to suspect widely metastatic disease that would typically spread more locally before metastasizing to brain. We will follow-up CT CAP already ordered anticipate patient will need biopsy of most targetable lesion as initial work-up so will keep n.p.o. midnight. Appreciate neurosurgery evaluation and will continue steroids per their recommendations and hold anticoagulation/antiplatelets. In regards to seizure will load with Keppra and start 500 megs p.o. twice daily. Will also order spot EEG,neurosurgery is aware. Also needed blood pressure control to keep SBP less than 160 per recommendatio ns, he has never had hypertension in the past he may need a new p.o. regiment in this setting. We will manage accordingly. Pt updated about all of the above, no questions or concerns at present. 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 #Hx Lung mass #Hx tobacco use disorder -Appreciate neurosurgery consultation -Dexamethasone 10mg IV in ED -> 4mg PO Q6H -Keppra 2000 mg po x 1 -> 500 mg po BID -Spot EEG -q4H neurochecks -Hold anticoagulation/antiplatelets, SCDs while in bed for DVT ppx -F/u CT CAP -BP control, keep SBP<160 -GI prophylaxis w/ protonix 40 mg qd -NPO for possible Bx -Pt declined NRT or counseling r/e tobacco cessation -Daughters updated at bedside w/ pt by NSx and ED physician about c/f cancer -Low threshold to engage palliative care prior to discharge #Hx CAD s/p 4vCABG 2018 -Continue atorvastatin 80 mg qd -Split dose metoprolol 12.5 mg po q8h (from 37.5 mg TDD prior to hospitalization) -F/u admission EKG to establish baseline (w/ Hx of prior CABG) #Cough: Likely 2/2 recent tobacco cessation -CTM -Covid negative on admission #Routine PPX -DVT: SCDs - GI: PPI Diet: Regula Consults: NSx, PT/OT Lines/Access: PIV CODE Status: FULL, To be readdressed pending w/u Juan Gaytan DO 06/28/2021 Hospital Medicine # [id number] -> redistributed to day team at 0800 06/29 documented in this encounter Procedure Notes Jessie Radford MD - 06/29/2021 2:20 AM EDTAssociated Order(s): EEG AWAKE, ASLEEP, DROWSY [facility] Department of Neurology Inpatient EEG Report Name of the Patient: Betsy Laird Date of : 1945 Date of Service: 06/29/2021 Referring physician: Juan Gaytan DO BRIEF HISTORY: Betsy Laird is a 75 y.o. patient with seizure. MEDICATIONS: Current Facility-Administered Medications Medication Dose Route Frequency Provider Last Rate Last Admin ??? metoprolol tartrate (Lopressor) tablet 12.5 mg 12.5 mg Oral Q8H CORIN Juan Gaytan, DO ??? sodium chloride 0.9 % (flush) (BD PosiFlush Normal Saline 0.9) flush 5 mL 5 mL Intravenous BID Juan Gaytan, DO 5 mL at 06/29/21 0100 ??? sodium chloride 0.9 % (flush) (BD PosiFlush Normal Saline 0.9) flush 5-20 mL 5-20 mL IntravenousQ1 Min PRN Juan Gaytan, DO ??? lidocaine (Xylocaine) 1% (10 mg/mL) injection 3 mg 0.3 mL Subcutaneous Once PRN Juan Gaytan, DO ??? acetaminophen (Tylenol) tablet 975 mg 975 mg Oral Q8H PRN Juan Gaytan, DO ??? melatonin tablet 6 mg 6 mg Oral Nightly Juan Gaytan, DO ??? dexamethasone (Decadron) tablet 4 mg 4 mg Oral Q6H [facility] Juan Gaytan E, DO 4 mg at 06/28/21 2344 ??? atorvastatin (Lipitor) tablet 80 mg 80 mg Oral QPM GalJuan blackmon E, DO 80 mg at 06/28/212248 ??? pantoprazole EC (Protonix) tablet 40 mg 40 mg Oral Daily Juan Gaytan E, DO 40 mg at 06/28/212248 ??? levETIRAcetam (Keppra) tablet 500 mg 500 mg Oral BID GalJuan blackmon E, DO METHODS: A 21 channel digitized electroencephalogram was performed in the [facility] Clinical Neurophysiology Laboratory. The 10/20 international system of electrode placement was used and bipolar and referential electrode montages were recorded. In addition to EEG the patient was monitored for EKG and lateral/vertical eye movements. Video was recorded during the session. The duration of the recording was 70 minutes. NET WPF DEVELOPER'S REPORT: Performed by: AT Patient was not sleep deprived. Sleep was attained. Photic stimulation was performed. Hyperventilation was not performed. Effort was not adequate. Movement and other artifact was not significant. Comments: None. ELECTROENCEPHALOGRAPHER'S REPORT: Background During the awake state with the eyes closed the background consisted of a moderate amplitude, 8-9 Hzposterior reactive rhythm that attenuated appropriately with eye opening. There was a normal anterior-posterior voltage gradient. With eye opening the background activity changed to a low voltage mixture of alpha, beta, and occasional theta range frequencies. Continuous left frontally predominant background slowing is present. Sleep Stage II sleep was obtained and consisted of symmetrical sleep spindles and vertex sharp waves. Hyperventilation Hyperventilation was not performed as a public health safety measure during current global viral pandemic. Photic Stimulation Photic stimulation using a step-jovel increase in photic frequency varying from 1-21 Hertz was performed and did not elicit abnormalities. Abnormal Interictal Activity None Clinical/push button events None EKG Single lead EKG regular. PRIOR EEG: No previous EEG reports were available. IMPRESSION: This 1 hour inpatient EEG in wakefulness, drowsiness, and sleep is abnormal due to continuous left frontally maximal slowing of the background, a finding consistent with known structural abnormality. No seizures or epileptiform discharges were observed. Jessie Radford MD Epilepsy fellow PGY-6 Pager #[phone] 06/29/2021 Associated attestation - Wally Lemon Jr., MD - 06/29/2021 5:06 PM EDT I have reviewed the EEG with the fellow and agree with the assessment above. Wally Lemon MD, PhD Diplomate, [place] [employer] and Neu[employer], with added qualification in Epilepsy supervisor international reservations Electroencephalography Co-Director of Intraoperative Neurophysiologic Monitoring Lay Out Inspector-[facility] [employer] [facility], Department of Neurology 06/29/2021 5:06 PM documented in this encounter ED Notes Laura Bruno MD - 06/29/2021 12:37 AM EDT ED Resident Note HPI: Betsy Laird is a 75 y.o. male who presents to the Emergency Department with concerns of brain tumor. Patient recently had an MRI as an outpatient that demonstrated multiple ring-enhancing lesions concerning for possible brain metastases of unknown primary. Patient was awaiting MRI for progressive right- sided weakness. Initially noted to be in his foot and now present in his right arm. Several weeks ago he was ambulating unassisted and now requires a walker. He denies any paresthesias. The patient is a regular smoker recently quit several days ago. Before his smoking about a pack a day. In additionhe was also a regular drinker drinking 3 beers a day now down to half a beer as he has lost the taste for it. Patient denies a history of any cancer. Reports having colonoscopy several years ago. He does report having intermittent left-sided headaches for the past few days. Currently he denies any ongoing headache. He has had no visual changes. Pt was seen under the supervision of an attending physician. Review of Systems Pertinent positives and negatives are included in the HPI, otherwise at least ten systems were reviewed and negative. Past Medical and Surgical Histories, Social History, Medications, Allergies were reviewed in the chart. Vitals: ED Triage Vitals [06/28/21 1643] BP: 154/86 Heart Rate: 77 Resp: 18 Temp: 36.8 ??C (98.3 ??F) Temp src: Tympanic SpO2: 96 % O2 Device: RA O2 Flow Rate (L/min): n/a Physical Exam Constitutional: General: He is not in acute distress. HENT: Head: Normocephalic and atraumatic. Mouth/Throat: Mouth: Mucous membranes are moist. Pharynx: Oropharynx is clear. Eyes: Extraocular Movements: Extraocular movements intact. Conjunctiva/sclera: Conjunctivae normal. Pupils: Pupils are equal, round, and reactive to light. Cardiovascular: Rate and Rhythm: Normal rate and regular rhythm. Pulses: Normal pulses. Pulmonary: Effort: Pulmonary effort is normal. No respiratory distress. Abdominal: Palpations: Abdomen is soft. Tenderness: There is no abdominal tenderness. Musculoskeletal: General: No swelling or deformity. Cervical back: Neck supple. No rigidity. Skin: General: Skin is warm and dry. Neurological: Mental Status: He is alert and oriented to person, place, and time. Cranial Nerves: No cranial nerve deficit. Sensory: No sensory deficit. Motor: Weakness (4/5 strength in right upper and lower extremities. 5/5 strength in left upper and lower extremities) present. Coordination: Coordination normal. Psychiatric: Mood and Affect: Mood normal. Behavior: Behavior normal. ED Course: I have reviewed labs and imaging, images and available reports, and they are significant for: Leukocytosis Chest x-ray shows concern for possible right hilar mass Last 3 wbc, hgb, hct plt Recent Labs 06/28/211921 WBC 10.7* HGB 14.3 HCT 42.1 PLATELET 376* Last 3 Lytes Recent Labs 06/28/211921 NA 138 K 4.0 CL 102 CO2 22 BUN 17 CREATININE 0.91 GLUCOSE 118 XR Chest PA & Lateral (Generic) Final Result Abnormal enlarged size of the right hilum concerning for adenopathy versus mass. Consider chest CT with contrast for further characterization. Thank you for letting us participate in the care of this patient. If you are a health care provider and have any questions regarding this report, please contact the number below. For patients who have questions please contact the health acute care physical therapist that requested your imaging first. Electronically signed by: Derrick Suresh MD, [facility] ([phone]), at 06/28/2021 9:[address] Head wo Contrast (Generic) Final Result 1. Multiple large hyperdense masses within the superior left frontal lobe with extensive surrounding edema. There are additional small hyperdense masses in the superior right frontal lobe. Findings are most consistent with metastases. The degree of edema and mass effect is unchanged. 2. Small right middle cranial fossa arachnoid cyst. Thank you for letting us participate in the care of this patient. If you are a health care provider and have any questions regarding this report, please contact the number below. For patients who have questions please contact the health acute care physical therapist that requested your imaging first. Electronically signed by: Derrick Suresh MD, [facility] ([phone]), at 06/28/2021 8:03 PM Film Library- Storage Only MR Head and Spine Final Result Film Library- Storage Only MR Spine Final Result CT Chest Abdomen Pelvis w Contrast (Generic) (Results Pending) Procedures Assessment and Plan: 75 y.o. male with history of coronary artery disease, smoking presenting to the emergency departmentwith concerns of newly diagnosed brain lesions and outpatient MRI. Patient's outpatient MRI was reviewed and seems most consistent with possible metastatic cancer with unknown primary. Given smoking history and high concerns for possible lung cancer. He does have notable right-sided deficits likely related to his brain metastases. Given these findings neurosurgery was consulted for further recommendations and treatments. Patient will likely require CT henao scan to evaluate for possible primary tumor. Neurosurgery evaluated the patient and recommended dexamethasone for leg edema. I do not recommend any emergent surgical intervention at this time. As result will admit patient to hospital medicine giving ongoing neurological deficits and further oncological testing. The visit findings, diagnosis, and care plan were discussed with the patient. Laura Bruno MD Resident 06/29/21 0045 Associated attestation - Bam Dunn MD - 07/03/2021 5:28 PM EDT ED ATTENDING ATTESTATION The patient was seen in conjunction with the resident physician. I have independently performed the du portions of the history and physical exam. I have personally reviewed nursing notes, vital signs,and diagnostic studies including labs, imaging studies and EKGs. I have discussed the details of the case with the resident and agree with the assessment and plan as described in the resident's note, unless stated otherwise in my separate note. Did this case involve critical care? No Misti Parra RN - 06/28/2021 11:48 PM EDT Pt transported to [facility] via stretcher with all belongings in stable condition. Daughter Majo updated to new bed assignment. Darren Parra RN Misti Parra RN - 06/28/2021 11:30 PM EDT Pt transport to [facility] requested. Darren Parra RN Misti Parra RN - 06/28/2021 11:10 PM EDT Phone report provided to receiving Balbina MORFIN. Pt transported to [place] via stretcher. Darren Parra RN Misti Parra RN - 06/28/2021 11:[address] Martinez notified of RUE focal seizure-like activity. Airway patent, tachycardic on monitor to 115. Patient AAO x 4. Darren Parra RN Misti Parra RN - 06/28/2021 9:46 PM EDT Majo Bennettrabee (daughter) , Antonina Jose (daughter) . Darren Parra RN Stephanie Osuna LPN - 06/28/2021 9:15 PM EDT Pt drank first cup of contrast, coughed and had small epsoide of emesis. MD Damion salazar. updated pt regarding CT scan, purpose and plan of care. Family back at bedside. Misti Parra RN - 06/28/2021 9:04 PM EDT Pt provided with oral contrast and administration instructions. Plan for CT at 2300. Darren Parra RN Misti Parra RN - 06/28/2021 7:41 PM EDT Pt transported to CT via stretcher in stable condition. Darern Parra RN Misti Parra RN - 06/28/2021 7:23 PM EDT 75 yo male presents with 1 month of progressive right-sided weakness and gait disturbance. Underwent MRI today and results suspicious for a brain tumor. Pt placed in stretcher, on continuous monitoring and evaluation advisor, peripheral IV access obtained, labs drawn/sent. ED provider at bedside for initial evaluation. Darren Parra RN Falguni Chung MD - 06/28/2021 4:39 PM EDT Telehealth [id number] Note: The following documentation is provided in my role as a TeleEmergency Physician and reflects a live audiovisual interaction. Brief HPI: 75y/o man presents due to brain cancer. He was seen at [facility] for right sided weakness. He had a brain MRI this morning that showed a mass. His PCP told him to drive to the [facility] ED. He was able to walk a week ago and now can't do that. His weakness is getting worse every day, but is stable since this morning. No headache or vomiting. Brief Physical Exam: Vital signs reviewed General appearance: Sitting in a wheelchair. No acute distress. Normal work of breathing. He moves his right arm, but not as much as his left arm. Tests Ordered: CBC, BMP, CT head w/ and w/o contrast. We do not currently have access to the MRI from [facility]. We will also need records from [facility] in [place], [place]. Preliminary testing was ordered. The patient is awaiting a bed in the Emergency Department. Falguni Chung MD 06/28/21 1646 documented in this encounter Miscellaneous Notes Plan of Care - Brandi Romano RN - 07/08/2021 12:41 PM EDT Betsy Laird discharged to Rehab ([facility]) by private car with Family member (daughter). All belongings sent with patient, per daughter she has in her possession all of the medications that are listed on admission (metoprolol, lipitor, lasix). HASEEB removed, incision healing well, no significant drainage, skin free from pressure ulcers. Discharge instructions, medications, and follow- up appointments reviewed, education provided on ambulation, fluid restriction, sodium levels, all questions answered.Report called to Kylee at [facility]. Patient instructed to call with concerns. Plan of Care - Isela Reynolds RN - 07/07/2021 10:02 PM EDT OUTCOME EVALUATION NOTE: OUTCOME SUMMARY: Pt A&Ox4. VSS on RA. No complaints of pain. Neuro checks unchanged. Voiding in urinal overnight.Slept well. Safety maintained PLAN MOVING FORWARD: 1500mL fluid restriction D/C planning Pending bed at rehab INDIVIDUALIZED FALL PREVENTION INTERVENTIONS: Patient-specific fall risk factors per assessment: [current deficits]: Generalized weakness, RLE weakness Assistance [level of assistance required for transfers and ambulation]: 1A w/ walker Supervision [direct monitoring required during toileting and ADLs]: Eyes on Surveillance [continuous indirect monitoring]: Masimo, room near nursing station, call lozano within reach, purposeful rounding Patient-specific fall prevention interventions for sensory deficits provided, if applicable: N/A CPG GOAL OUTCOME EVALUATION: Continue care plan as documented Plan of Care - Nicole Basurto RN - 07/07/2021 5:21 PM EDT OUTCOME EVALUATION NOTE: OUTCOME SUMMARY: Pt A&Ox4. VSS on RA. No complaints of pain. Neuro checks unchanged. Patient able to ambulate around unit with FWW and staff. PLAN MOVING FORWARD: 1500mL fluid restriction D/C planning Pending bed at rehab INDIVIDUALIZED FALL PREVENTION INTERVENTIONS: Patient-specific fall risk factors per assessment: [current deficits]: Generalized weakness, RLE weakness Assistance [level of assistance required for transfers and ambulation]: 1A w/ walker Supervision [direct monitoring required during toileting and ADLs]: Eyes on Surveillance [continuous indirect monitoring]: Masimo, room near nursing station, call lozano within reach, purposeful rounding Patient-specific fall prevention interventions for sensory deficits provided, if applicable: N/A CPG GOAL OUTCOME EVALUATION: Continue care plan as documented Plan of Care - Isela Reynolds RN - 07/07/2021 12:43 AM EDT OUTCOME EVALUATION NOTE: OUTCOME SUMMARY: Pt A&Ox4. VSS on RA. No complaints of pain. Neuro checks unchanged. Voiding in urinal overnight.Slept well overnight. Safety maintained PLAN MOVING FORWARD: 1500mL fluid restriction D/C planning Pending bed at rehab INDIVIDUALIZED FALL PREVENTION INTERVENTIONS: Patient-specific fall risk factors per assessment: [current deficits]: Generalized weakness, RLE weakness Assistance [level of assistance required for transfers and ambulation]: 1A w/ walker Supervision [direct monitoring required during toileting and ADLs]: Eyes on Surveillance [continuous indirect monitoring]: Masimo, room near nursing station, call lozano within reach, purposeful rounding Patient-specific fall prevention interventions for sensory deficits provided, if applicable: N/A CPG GOAL OUTCOME EVALUATION: Continue care plan as documented Plan of Care - Stephanie Carey RN - 07/06/2021 12:53 PM EDT OUTCOME EVALUATION NOTE: ?? OUTCOME SUMMARY: ?? Pt A+Ox4. VSS on RA. Bradycardic intermittently. No complaints of pain. Incision C/D/I AROLDO. Neuro checks unchanged. Voiding in urinal. BM today. Up to chair and ambulating around unit intermittently. BID BMPs ordered. Next due at 00:00. Fluid restriction maintained. PLAN MOVING FORWARD: 1500mL fluid restriction D/C planning Pending bed at rehab ?? INDIVIDUALIZED FALL PREVENTION INTERVENTIONS: ?? Patient-specific fall risk factors per assessment: [current deficits]:?Generalized weakness, RLE weakness ?? Assistance [level of assistance required for transfers and ambulation]:?1A w/ walker ?? Supervision [direct monitoring required during toileting and ADLs]:?Eyes on ?? Surveillance [continuous indirect monitoring]:?Masimo, room near nursing station, call lozano within reach, purposeful rounding? Patient-specific fall prevention interventions for sensory deficits provided, if applicable:? N/A ?? CPG GOAL OUTCOME EVALUATION: ?? Continue care plan as documented. Care Management - Maranda Teresa RN - 07/06/2021 11:34 AM EDT OFFICE OF CARE MANAGEMENT PROGRESS NOTE LOS: Hospital Day 8 days Chart reviewed, care reviewed with primary team and at interdisciplinary rounds. Patient continues to meet inpatient level of care related to: Brain Lesions Functional status prior to admission: Assistive Equipment Home Environment: Others in the home: pet(s) (Patient lives alone with his dog). Current Living Arrangements: home/apartment/condo. Accessibility Concerns: 1 level ranch style house with a basement and a ramp to enter with biliateral railings. Current Functional Ability: Assistive Equipment, Assistive Person DME used at home: grab bar - tub/shower, walker - standard, wheelchair - manual DME Needed at Discharge: TBD Patient is insured through: Primary Insurance: [employer] Payor: [employer] / Plan: [employer] / Product Type: *No Product type* / Secondary Insurance: N/A Last Physical Therapy Recommendation: acute rehabilitation facility with to be determined (@ rehab facility (he has walker & w/c @ home)) Last Occupational Therapy Recommendation: acute rehabilitation facility with to be determined Plan for discharge is: Acute Rehab Agency Referrals: Referrals place [facility] decision pending authorization. Patient informed of same. Transportation: ambulance Barriers to discharge: Discharge planning Plan going forward: Referral placed for acute rehab [facility] decision pending authorization approval. Care Management will continue to follow and assist with discharge planning and coordination of care as indicated. Anticipated Date of Discharge: 07/06/2021 Maranda Teresa [facility] [phone] Plan of Care - Anna Helm RN - 07/03/2021 10:56 PM EDT OUTCOME EVALUATION NOTE: OUTCOME SUMMARY: Pt is A&OX4, VSS on RA, slightly tereso at times, PM metoprolol held. He has no c/o pain, lung sounds diminished. He reports LUE tingling in his first 3 digits and RLE numbness/tingling. He is a 1+ assist with the walker to the BR and calls appropriately, he had a large BM on 07/03. Neuro checks intact, he slept well overnight, blood sugar checks WNL. Bed alarm on during shift, safety maintained, will continue to monitor. PLAN MOVING FORWARD: Q4 fingerstick Q shift neuro Q6 V/S while awake INDIVIDUALIZED FALL PREVENTION INTERVENTIONS: Patient-specific fall risk factors per assessment: Generalized weakness, unsteady gait, multiple lines, hospital environment. Assistance: 1 assist, FWW. Supervision: Hands on Surveillance: Bed locked in low position, call lozano within reach, purposeful hourly rounding, clutter free environment, bed/chair alarm on Patient-specific fall prevention interventions for sensory deficits provided: N/A CPG GOAL OUTCOME EVALUATION: Continue care plan as documented. Assessment & Plan Note - Benita Leblanc MD - 07/03/2021 3:22 PM EDTAssociated Problem(s): Hyponatremia Post operative hyponatremia. Urine studies c/w SIADH. Remains asymptomatic. PLAN -Target eunatremia post craniotomy per NSGY -Fluid restrict 1500 mL -Continue NaCl tabs 1g TID, taper over 1-2 weeks -Trend BMP Assessment & Plan Note - Benita Leblanc MD - 07/01/2021 6:16 PM EDTAssociated Problem(s): Hyperglycemia In setting of dexamethasone administration. RESOLVED Consult Note - Sherie Roberts APRN - 07/01/2021 4:00 PM EDT Palliative Care Encounter Note I have examined the patient, and I was present for and actively participated in the entirety of the visit today. I provided the counseling outlined below. Please see Dr. Fernandez's note for further details of this encounter. Relevant History Mr. 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 He was admitted to on 06/28 after presenting to [facility] with prgressive right sided weakness. An MRI was done andfound a multiple brain lesions with the largest being a left frontal lobe mass with surrounding vasog enic edema. Furter work-up revealed a right hilar lung mass as well. He is now s/p craniotomy for tumor resection. Awaiting pathology and further treatment options. We are asked to meet with him to introduce Palliative Care Services and assist with coping with serious illness. Visit Summary Dr. Fernandez and I met with Betsy and discussed Palliative Care and the role of helping with coping, symptoms and decision support. We discussed his understanding of illness: he is well aware of the fact that he has metastatic cancer and that this is not a curable disease. He is hoping that treatment will extend his life. He worries mostly about his dog, Truman. His daughters are supportive and caring for his dog now. He intends to get treatment in [facility] as he lives in [place], [place]. His PCP is Dr. Riggins, who is also a Cornetist. He has no bothersome symptoms, just the right sided weakness. He has no pain, no PINEDA, no vision issues, no nausea or GI issues and no resp issues. PE: Elderly man lying in bed in NAD HENT: Head wrap on and clean and intact Eyes: anicteric Resp: unlabored. Neuro: A and O x 3, right sided leg weakness. 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 Supportive counseling re: coping with serious illness. He has excellent support in his daughters. Will need referral for Palliative Care in [facility] as that is where he will get his care. Time Statement I spent 30 minutes on this encounter; 20 minutes were spent on counseling regarding coping with serious illness. Consult Note - Ailyn Fernandez MD - 07/01/2021 2:59 PM EDT Palliative Medicine Consultation NAME: Betsy Laird DATE: 07/01/2021 ATTENDING: Mary Lemus MD PCP: Myriam Riggins MD Hospital day: Hospital Day 3 days Reason for Consultation: The Palliative Care Service is asked by Dr. Mary Lemus MD to see this patient for : Coping with serious illness Introduction of Palliative Care Services I have reviewed the relevant records, interviewed and examined the patient. He was accompanied by his daughter, Sandro, at the time of our visit. History obtained from: X Patient X Family/Caregiver (other than or in addition to patient) X Chart review Other medical team members History of Present Illness: Betsy Laird is a 75 y.o. 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 The patient recalls that a couple of years ago, he was noted on a screening CT chest to have a spot on his lung.His primary care doctor advised him to follow up for a repeat scan the following year, but he reports that he never did this because covid had just started, and he wanted to avoid the risk of susan covid in a healthcare setting, as he does not agree with vaccination or masking. Importantly he is still not vaccinated against covid. 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 He thought it could be related to sitting down for so long, so he got an MRI of his lumbar spine which showed degenerative disc disease but no evidence of stenosis or spinal nerve disruption. In the intervening weeks, however, his symptoms worsened and began to involve his right upper extremity. He went to an outpatient neurologist, who recommended a brain MRI, which unfortunately showed multiple irregularities consistent with metastatic disease, with two dominant lesions in the left frontal and parietal lobes. Surgery yesterday to resect these was apparently uncomplicated with minimal blood loss; post-operative MRI was remarkable only for expected post-operative changes. At the time of our evaluation, the patient is in good spirits and does not complain of any pain, shortness of breath, nausea, or bowel or bladder issues. He verbalized good understanding of his currentillness and his prognosis. He stated that It started in my lung and spread very quickly to my brain, and I know it's not curable. They told me that with treatment I have four, maybe five years. He said he understands he is likely going to need whole brain radiation to get the remaining tumors that were not removed yesterday, and he says he is waiting for some tests to figure out what kind of chemois going to fight the cancer. He states I'm not one who is ready to just lay down and , I'm ready to fight. 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 He has two daughters, one who lives a few miles away from him, and one who lives in [place], [place]. He states that they have always been a great source of support for him, and he feels confident that they will be able to handle the challenges of this diagnosis as a familiy. He is from his , but states they remain good friends, and his daughter Sandro volunteered that his ex- was setting up a meal train for him for when he gets out of the hospital. He also has a five year old to retriever called Truman who is being cared for by his son in law and the neighbor's kids while he's in the hospital. He became tearful when sharing his concerns about how his might affect his dog, stating He's been by my side through all of this. My daughters will do fine, but Truman will never know what happened. When asked what worries him about the road ahead, Betsy states he is someone who likes to take things one thing at a time. He understands he will likely need to spend a short amount of time at an inpatient rehab to work on regaining as much function as possible in his right leg; he knows he may regain some function from the surgery and his course of steroids for the swelling in his brain. He is enthusiastic about meeting with the oncology and palliaitve teams at the [facility] in [facility], and states that he is willing to try chemotherapy and radiation if these interventions will help him to feel better and live longer. I explained to him that chemotherapy may compromise his immune system and makeit harder for him to fight infections like covid. He said he never thought about it from that perspective, but he would start thinking about it more and talk about it with his oncologist. Advance Care Planning: Current code status: Attempt Cardiopulmonary Resuscitation - Inpatient Advance Directives: None Surrogate Decision Maker: Daughters Treatment limitations: None Information and Decision Making Preferences: Betsy does not have any questions or concerns at this point in his illness journey, but would like us to check back with him frequently during his hospitalization. Psychosocial context: Social History: Lives independently in [facility] with his dog. Coping: Current behaviors and efficacy: Betsy worries about one thing at a time Allergies as of 06/28/2021 - Review Complete 06/28/2021 Allergen Reaction Noted ??? Cis free text allergy Medications: reviewed in eDH, relevant Palliative Care medications noted below Scheduled: None PRNs (including 24 hour usage): oxycodone range panel 5/10/15 mg po q 4h prn-- no uses in the last 48 hours PHYSICAL EXAMINATION Last value Range last 24 hrs Temperature Temp: 36.8 ??C (98.3 ??F) Temp: [36.4 ??C (97.6 ??F)-37.1 ??C (98.7 ??F)] Heart Rate Heart Rate: (S) (!) 47 Heart Rate: [47-64] Blood Pressure BP: 140/70 BP: (112-143)/(59-80) Respiratory Rate Resp: 15 Resp: [11-19] SpO2 SpO2: 93 % SpO2: [87 %-96 %] Diagnostic Studies: The following studies were reviewed, relevant results noted: Pertinent findings Laboratory Improving leukocytosis; stable normocytic anemia. Normal electrolytes. Good glucose control. Radiology MRI findings as above Other Palliative Care Assessment/Recommendations: Fortunately Betsy doesn't have any symptoms at this time except for his right leg weakness. His sensation is slightly improved after the surgery, but he is hopeful that he gain regain some more functionso he doesn't have to limp to get around. He might benefit from physical therapy or even an acute rehab stay after his hospitalization. He has strong social support, good coping skills, and an excellent understanding of his illness and prognosis. He was grateful for our involvement and asked that we come visit him on Sunday after he's had some time to talk with his daughters and think more about the road that lies ahead. He is enthusiastic about continuing full aggressive treatment at this time. Goals of care and achievability: The patient understands that his disease is not curable, but he is interested in meeting with the cancer team and getting started with treatment when possible Understanding of illness and prognostic awareness: Excellent Recommended changes to the care plan: None Recommendations for communication: Referral to patient's primary care doctor, who is also palliativecare trained. Coping strategies: Manages okay on his own and leans on his daughters when he needs Recommendations to enhance coping: Would involve his daughters to the extent possible when thinking about treatment options or next steps so everyone is on the same page. Physical symptoms: Right leg weakness Recommendations for management of symptoms: PT/OT when appropriate Counseling regarding supports available to the patient both during and after his hospitalization; assessment of his understanding of illness, symptoms, and ability to cope. Palliative Care follow-up plan: Medical team Nursing team Psychosocial Support Inpatient X Outpatient Explicitly offered follow-up?: Yes Follow-up needs?: Palliative in . [facility] Time frame for follow-up?: after discharge in coordination with oncology [employer] joint/separate?: Joint Ailyn Fernandez MD Palliative care team pager #[phone] Consult Note - Ela Wright MD - 07/01/2021 10:14 AM EDT Images from the original note were not included. Date of Consultation: 07/01/2021 Consult Service: Radiation oncology Responsible Attending: Harry Wright Place of Service: Inpatient Unit Reason for Consult: We are seeing Betsy Laird at the request of Dr. Lemus of the hospital medicine service for the evaluation of brain mets. I have reviewed the available records, interviewed, and examined the patient. History of Present Illness: Betsy Laird is a 75 y.o. male presenting with newly diagnosed brain mets. Patient has PMH of PMH tobacco use, hypertension, high cholesterol, CAD s/p CABG (3yrs ago). Patientpresented to OSH with 3-4 weeks of right lower extremity weakness and inability to ambulate without assistance. His weakness progressed to his right upper extremity which he had for approx 5 days priorto seeking medical care. He presented to an outpatient neurologist who ordered an MRI of his lumbar spine which showed multilevel degenerative disease. Following, he presented to [facility] where an MRI noted several brain mets. Patient was admitted to [facility] on 06/28/21. CT head on 06/28/21 showed multiple large hyper dense masseswithin the left frontal lobe with additional masses in the superior right frontal lobes, read as most consistent with mets. CT c/a/p on 06/28/21 noted a right hilar mass, consistent with a lung primary. Patient underwent left frontal and left parietal craniotomy for resection of tumors on 06/30/21 w/ Dr. Justice. MRI brain following surgery showed postsurgical changes. Frozen was consistent with non-small cell, though final path pending. Patient is currently POD #1, without complications thus far. He has never had radiation. No implantable device. Worked in [employer], retired 4 year ago. Rides motorcycles in his free time. Quit smoking- 2 weeks ago. 60 pack year history- started smoking at age 17. Couple beers a few timesa week. No h/o cancer. No family h/o cancer. Father stroke, Mother with heart disease. Review of Systems: No n/v, d/c, no headaches (some pain at incision sites). Continues to have right side weekness- especially right arm. Can't feel right foot. Tingling in left hand (digits 1-3)- new within last month. Chronic cough, Some mild SOB. No chest pain. Weight loss- 6lbs over two weeks, which he attributes to his lack of mobility over that time. Lives alone (w/ his dog). Completed ADLs without issues prior to onset of symptoms 3-4 weeks ago. Past Medical and Surgical History: History reviewed. No pertinent past medical history. Past Surgical History: Procedure Laterality Date ??? PRO EXCIS SUPRATENT BRAIN TUMOR Left 06/30/2021 @CRANI, FOR TUMOR, SUPRATENTORIAL, NOT MENINGIOMA (WRVU 30.83) performed by Estefania Justice MD at [facility] MAIN OR ??? PRO MICROSURG TECHNIQUES, REQ OPER MICROSCOPE N/A 06/30/2021 MICROSCOPE USE (WRVU 3.46) performed by Estefania Justice MD at [facility] MAIN OR ??? PRO STEREOTACTIC CPTR ASSTD PX CRANIAL, INTRADURAL N/A 06/30/2021 STEREOTACTIC COMPUTER-ASSTD NAVIGATIONAL CRANIAL INTRADURAL (WRVU 3.75) performed by Estefania Justice MD at [facility] MAIN OR Medications: ??? insulin lispro 1-4 Units Subcutaneous Q4H CORIN ??? metoprolol tartrate 12.5 mg Oral Q8H CORIN ??? sodium chloride 0.9 % (flush) 5 mL Intravenous BID ??? levETIRAcetam 1,000 mg Oral BID ??? nicotine 1 patch Transdermal Daily And ??? Patch Verification 1 patch Transdermal BID And ??? nicotine 1 patch Transdermal Daily ??? dexamethasone 4 mg Oral Q6H CORIN ??? atorvastatin 80 mg Oral QPM ??? pantoprazole EC 40 mg Oral Daily Prior To Admission Medications: No current facility-administered medications on file prior to encounter. Current Outpatient Medications on File Prior to Encounter Medication Sig Dispense Refill ??? furosemide (Lasix) 20 mg Tablet Take 20 mg by mouth daily. ??? metoprolol succinate XL (Toprol-XL) 25 mg Tablet Sustained Release 24 hr Take 37.5 mg by mouth nightly. ??? atorvastatin (Lipitor) 80 mg Tablet Take 80 mg by mouth every evening. ??? aspirin EC 81 mg Tablet, Delayed Release (E.C.) Take 81 mg by mouth daily. ??? ibuprofen (ADVIL;MOTRIN) 200 mg tablet Take 600 mg by mouth every 6 hours as needed for Pain. Allergies: Allergies Allergen Reactions ??? Cis Free Text Allergy Environmental. CIS - Allergic Rhinitis Family History: History reviewed. No pertinent family history. Social History and Habits: Social History Socioeconomic [...] Stability: Not on file Physical Exam: BP 126/66 (BP Location (NBP): Right arm, Patient Position: Lying) Pulse 51 Temp 36.8 ??C (98.3 ??F) (Oral) Resp 14 Ht 177.8 cm (5' 10) Wt 76.2 kg (167 lb 15.9 oz) SpO2 93% BMI 24.10 kg/m?? General: NAD, bandage around head, pleasant, hable to converse without difficulty, thorough thought content Neuro: CN II-XII intact. Sensation decrease in right foot below the ankle. Strength 4/5 in upper extremity and 4/5 in lower extremities, expect 3/5 in knee flexing. Strength 5/5 on right. Right pronator drift. Laboratory (Last 24 Hours): Recent Results (from the past 24 hour(s)) POCT Glucose Result Value Ref Range POC Glucose 156 65 - 199 mg/dL POCT Glucose Result Value Ref Range POC Glucose 126 65 - 199 mg/dL Basic Metabolic Panel (non-fasting) Result Value Ref Range Glucose Lvl 121 65 - 199 mg/dL BUN 18 10 - 20 mg/dL Creatinine 0.93 0.80 - 1.50 mg/dL Sodium 136 135 - 145 mmol/L Potassium 4.3 3.5 - 5.0 mmol/L Chloride 100 98 - 107 mmol/L CO2 24 22 - 31 mmol/L Anion Gap 12 5 - 15 mmol/L Calcium 8.4 (L) 8.5 - 10.5 mg/dL Estimated GFR 81 >=60 mL/min/1.73 m?? Magnesium Result Value Ref Range Magnesium 0.90 0.69 - 1.07 mmol/L Phosphorus Result Value Ref Range Phosphorus 3.4 2.5 - 4.5 mg/dL Hemogram Result Value Ref Range WBC 16.1 (H) 4.0 - 9.5 x10(3)/mcL RBC 4.11 (L) 4.58 - 5.54 x10(6)/mcL Hemoglobin 12.1 (L) 13.7 - 16.5 g/dL Hematocrit 35.9 (L) 40.5 - 48.5 % MCV 87.3 82.9 - 93.1 fL MCH 29.4 27.5 - 32.1 pg MCHC 33.7 32.0 - 35.7 g/dL Platelets 319 145 - 357 x10(3)/mcL RDWSD 39.3 36.0 - 45.0 fL RDWCV 12.2 11.4 - 13.8 % MPV 10.5 7.6 - 12.9 fL nRBC % Auto 0.0 % nRBC Abs Auto 0.000 0.000 - 0.000 x10(3)/mcL Differential, Automated Result Value Ref Range Neutrophils % 84.1 % Neutr Abs (ANC) 13.53 (H) 1.70 - 6.10 x10(3)/mcL Lymphocytes % 7.7 % Lymphocytes Abs 1.2 0.9 - 3.2 x10(3)/mcL Monocytes % 7.2 % Monocyte Abs 1.2 (H) 0.3 - 0.9 x10(3)/mcL Eosinophils % 0.0 % Eosinophils Abs 0.0 0.0 - 0.4 x10(3)/mcL Basophils % 0.1 % Basophils Abs 0.0 0.0 - 0.1 x10(3)/mcL Immature Gran % 0.90 % Beba Gran Abs 0.14 (H) 0.00 - 0.04 x10(3)/mcL POCT Glucose Result Value Ref Range POC Glucose 145 65 - 199 mg/dL POCT Glucose Result Value Ref Range POC Glucose 127 65 - 199 mg/dL POCT Glucose Result Value Ref Range POC Glucose 196 65 - 199 mg/dL Radiology: 06/28/21: MRI head 06/28/21L CT head IMPRESSION 1. Multiple large hyperdense masses within the superior left frontal lobe with extensive surrounding edema. There are additional small hyperdense masses in the superior right frontal lobe. Findings are most consistent with metastases. The degree of edema and mass effect is unchanged. 2. Small right middle cranial fossa arachnoid cyst. 06/28/21: CT c/a/p IMPRESSION 1. Right hilar masses with central low-attenuation suggesting necrosis. Pathologic mediastinal adenopathy. Findings likely represent primary lung cancer. 2. 8mm low-attenuation focus posterior segment right lobe of liver, too small to characterize. 3. Changes of centrilobular emphysema. 06/30/21: MRI brain IMPRESSION Postsurgical changes after resection of left-sided metastatic lesions. Pathology: 06/30/21: Frozen FROZEN SECTION DIAGNOSIS A-FS1: Smear and frozen section preparations on ?? Likely Lung Primary. ? Small Cell or ??Not???, excision : EPITHELIOID NEOPLASM, FAVOR METASTATIC CARCINOMA. (TRAVIS) Assessment: Betsy Laird is a 75 y.o. 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 Patient is s/p left front and left parietal craniotomy for resected tumors, with MRI on 06/30/21 showing post op changes. We await final pathology before deciding on next steps, but Betsy Laird is likely an appropriate candidate for palliative whole brain radiotherapy. The goal of treatment is to improve or maintain neurologic symptoms and QOL. We considered both fractionated radiation treatment and radiosurgery. Fractionated whole brain treatment is indicated due to number of mets and size of the two resected mets. Reported cumulative response rate of approximately 60% can be anticipated with WBRT. Individual outcomes can be predicted using the GPA- diagnosis-Specific Prognostic Factors, Indexes, and Treatment Outcomes for Patients with Newly Diagnosed Brain Metastases: A Multi-Institutional Analysis of 4,259 Patients. (Keyur PW, Int J Radiat Oncol Biol Phys. 2009 Feb 02). Betsy Laird is a candidate for hippocampal avoidance PINEDA-WBRT. Rationale for this approach was published in JCO 2020, which was a randomized trial (NR Oncology CC001) and found- Risk of cognitive failure was significantly lower after PINEDA-WBRT plus memantine versus WBRT plus memantine (adjusted hazardratio, 0.74; 95% CI, 0.58 to 0.95; P = .02). This difference was attributable to less deterioration in executive function at 4 months (23.3% v 40.4%; P = .01) and learning and memory at 6 months (11.5%v 24.7% [P = .049] and 16.4% v 33.3% [P = .02], respectively). Treatment arms did not differ significantly in OS, intracranial PFS, or toxicity. At 6 months, using all data, patients who received PINEDA-WBRT plus memantine reported less fatigue (P = .04), less difficulty with remembering things (P = .01),and less difficulty with speaking (P = .049) and using imputed data, less interference of neurologicsymptoms in daily activities (P = .008) and fewer cognitive symptoms (P = .01). We think he's a candidate for PINEDA-WBRT in the setting that the hippocampal area does not appear to have disease. In addition, initiate namenda (memantine), which was studied in a randomized trial (RTOG 0614, published in Neuro Onc 2013). Results showed that there was less decline in delayed recall in the memantine arm at 24 weeks (P = .059), but the difference was not statistically significant, possibly because there were only 149 analyzable patients at 24 weeks, resulting in only 35% statistical power. The memantine arm had significantly longer time to cognitive decline (hazard ratio 0.78, 95% confidence interval 0.62-0.99, P = .01); the probability of cognitive function failure at 24 weeks was 53.8% in the memantine arm and 64.9% in the placebo arm. Superior results were seen in the memantine arm for executive function at 8 (P = .008) and 16 weeks (P = .0041) and for processing speed (P = .0137) and delayed recognition (P = .0149) at 24 weeks. We discussed that we will need to wait for final path. We discussed that systemic therapy would be managed by medical oncology. We discussed the logistics (including treatment schedule and CT simulation) of treatment and that we could treat up in [facility] as an outpatient. We discussed we would give him a week of rest prior to starting radiation. We reviewed risks and benefits of treatment, including hair loss, skin reaction and possibility of neurocognitive decline, despite taking the steps outlined above to minimize this risk. As far as this last side effect this is controversial, and in fact there studies that show benefit in cognition after WBRT for patients with brain metastases- Regression after whole-brain radiation therapy for brain metastases correlates with survival and improved neurocognitive function. (Lay J, J Clin Oncol. 2007 Jun 10;25(10):1260-6.) Subset analysis of PIII trial. Goodresponders defined as tumor shrinkage >45%, poor responders tumor shrinkage <45% as a function of population mean. They found that tumor shrinkage correlates with survival and neurocognitive preservation. Neurocognitive function stable/improved in long- term survivors. Tumor progression affects neurocognitive function more than WBRT. Patient agreeable to plan. Plan to see an outpatient in rad onc clinic in [facility]. Recommendations: - Systemic therapy per medical oncology - F/u outpatient radiation oncology in [facility] - F/u final path - Likely recommend PINEDA-WBRT- 30Gy in 10fx. - Remainder of care per primary team Betsy Laird was seen for a total of 30 minutes, discussing the case with the patient and his family, reviewing the medical record and pertinent studies, and coordinating care with other providers. Recommendations are above, please page if further consultation required. Catalina Parikh MD PGY2 I have seen and examined the patient, providing du components as outlined below. I have reviewed the resident???s above note; my evaluation of the patient is below: CC: Betsy is a 75 y/o m referred by Dr. Lemus for eval for xrt for brain mets. HPI: Betsy presented w/R sided weakness. 06/28/21 CT brain & MRI brain showed multiple brain masses in frontal lobes w/extensive surrounding edema on L & 3 mm L to R midline shift. CT c/a/p showed R hilar mass w/pathologic mediastinal adenopathy likely representing primary lung ca. 06/30/21 craniotomy w/tumor debulking. 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 06/30/21 postop MRI brain: Postsurg changes after rsxn L sided met lesions. Subjective: No change in R sided weakness since admission. No PINEDA/N/V. Past Medical History: Diagnosis Date ??? CAD (coronary artery disease) s/p CABG 2018 ??? High cholesterol ??? Hypertension ??? Tobacco use No lupus/scleroderma. No prior xrt. Past Surgical History: Procedure Laterality Date ??? PRO EXCIS SUPRATENT BRAIN TUMOR Left 06/30/2021 @CRANI, FOR TUMOR, SUPRATENTORIAL, NOT MENINGIOMA (WRVU 30.83) performed by Estefania Justice MD at [facility] MAIN OR ??? PRO MICROSURG TECHNIQUES, REQ OPER MICROSCOPE N/A 06/30/2021 MICROSCOPE USE (WRVU 3.46) performed by Estefania Justice MD at [facility] MAIN OR ??? PRO STEREOTACTIC CPTR ASSTD PX CRANIAL, INTRADURAL N/A 06/30/2021 STEREOTACTIC COMPUTER-ASSTD NAVIGATIONAL CRANIAL INTRADURAL (WRVU 3.75) performed by Estefania Justice MD at [facility] MAIN OR Physical Exam Constitutional: General: He is not in acute distress. Comments: BP 142/83 (BP Location (NBP): Right arm) Pulse 63 Temp 36.9 ??C (98.4 ??F) (Oral) Resp 13 Ht 177.8 cm (5' 10) Wt 76.2 kg (167 lb 15.9 oz) SpO2 93% BMI 24.10 kg/m?? Supine in bed w/HOB elevated. HENT: Head: Comments: Clean dry dressing covers scalp. Eyes: General: No scleral icterus. Right eye: No discharge. Left eye: No discharge. Extraocular Movements: Extraocular movements intact. Conjunctiva/sclera: Conjunctivae normal. Pulmonary: Effort: Pulmonary effort is normal. No respiratory distress. Breath sounds: No stridor. Musculoskeletal: Cervical back: Normal range of motion. Neurological: Mental Status: He is alert and oriented to person, place, and time. Cranial Nerves: No cranial nerve deficit. Sensory: Sensory deficit present. Motor: Weakness present. Comments: Decreased sensation to light touch on R gauthier compared to L gauthier. Strength throughout R upper ext 4/5 compared to 5/5 on L. Strength of R lower ext on plantar flexion/extension 1/5 compared to 5/5 on L. Strength of lower ext on hip flexion 3/5 on R, 5/5 on L. Babinski equivocal on R, neg on L. Psychiatric: Mood and Affect: Mood normal. Behavior: Behavior normal. Thought Content: Thought content normal. Judgment: Judgment normal. 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 P: Discussed possible course of whole brain xrt to try to shrink & control brain mets. Likely give xrt in 14 [facility] facility (closer to his home) as outpatient. Discussed possible side effects of xrt, w/acute/immediate side effects including skin pinkening/dryness w/in irrad'd area, hair loss which may be permanent & tiredness. Possible late/senior care side effects include adverse effect on short term memory. Consider hippocampal avoidance WBRT. Consider memantine. Discussed need for CTsim prior to xrt. Await final path prior to proceeding w/CTsim. Seek input from SRS Rad Onc to confirm whole brain xrt preferred rather than SRS @ this time. 40 mins encounter. Consult Note - Renetta Perez MD - 07/01/2021 9:57 AM EDT Images from the original note were not included. NEW ONCOLOGY CONSULT Reason for consult: We are seeing Betsy Laird at the request of the neurosurgery team evaluate for metastatic cancer to the brain. I have reviewed all available records, interviewed and examined the patient. HPI Betsy Laird is 75 y.o. M, current smoker (58 pk history), who was admitted on 06/28/21 for expeditedwork up after presenting with progressive R sided weakness and R foot drop over the past 3-4 weeks as well as daily headaches. He saw a neurologist and an MRI of his lumbar spine was c/w degenerative disease. He went to [facility] as recommended by his neurologist/PCP to complete the work up with a MRI brain and C-spine that showed multiple intracranial lesions concerning for metastasis. He presented to [facility] on 06/[address] C/A/P was pertinent for R hilar masses and mediastinal adenopathy. 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 Interval Hx We met with Betsy this AM. He is recovering from his surgery. He endorsed the above Hx. He reports that his weakness has slightly improved. He also reports that he had some numbness/tingling in his first 3 digits (palmar aspect) over the same period, unchanged. He denies facial numbness, difficulty with urination, SOB, hemoptysis. He has been having some productive cough with clear phlegm, improving since he quit smoking a week ago. He reports that up until his recent symptoms, he was living alone, completely independent and able to do all of his daily activities. His daughter lives 3 miles away from him. Outpatient Medications Marked as Taking for the 06/28/21 encounter (Hospital Encounter) Medication Sig Dispense Refill ??? furosemide (Lasix) 20 mg Tablet Take 20 mg by mouth daily. ??? metoprolol succinate XL (Toprol-XL) 25 mg Tablet Sustained Release 24 hr Take 37.5 mg by mouth nightly. ??? atorvastatin (Lipitor) 80 mg Tablet Take 80 mg by mouth every evening. ??? aspirin EC 81 mg Tablet, Delayed Release (E.C.) Take 81 mg by mouth daily. ??? [DISCONTINUED] furosemide (Lasix) 20 mg Tablet Take 20 mg by mouth daily. ??? ibuprofen (ADVIL;MOTRIN) 200 mg tablet Take 600 mg by mouth every 6 hours as needed for Pain. History reviewed. No pertinent past medical history. CABG X4 about [address] scan at [facility] last year showed some stable b/l lung lesions with plan to repeat imaging in 1 year as per patient No Hx of autoimmune disease Past Surgical History: Procedure Laterality Date ??? PRO EXCIS SUPRATENT BRAIN TUMOR Left 06/30/2021 @CRANI, FOR TUMOR, SUPRATENTORIAL, NOT MENINGIOMA (WRVU 30.83) performed by Estefania Justice MD at [facility] MAIN OR ??? PRO MICROSURG TECHNIQUES, REQ OPER MICROSCOPE N/A 06/30/2021 MICROSCOPE USE (WRVU 3.46) performed by Estefania Justice MD at [facility] MAIN OR ??? PRO STEREOTACTIC CPTR ASSTD PX CRANIAL, INTRADURAL N/A 06/30/2021 STEREOTACTIC COMPUTER-ASSTD NAVIGATIONAL CRANIAL INTRADURAL (WRVU 3.75) performed by Estefania Justice MD at [facility] MAIN OR History reviewed. No pertinent family history. Mother: from heart disease at 91 Father: from a stroke at 90 Siblings: both are in apparent good health Children: 2 daughter, both healthy Social History Socioeconomic History ??? Marital status: Spouse name: None ??? Number of children: None ??? Years of education: None ??? Highest education level: None Occupational History ??? None Tobacco Use ??? Smoking status: Former Smoker [...] activity: Not Currently Other Topics Concern ??? None Social History Narrative ??? None Social Determinants of Health Financial Resource Strain: Not on file Food Insecurity: Not on file Transportation Needs: Not on file Physical Activity: Not on file Housing Stability: Not on file Tobacco: 1pdd since he was 17, quit in 2019 but started smoking last year Alcohol: couple beers 2-3 times week Drug: none PHYSICAL EXAM Patient Vitals for the past 24 hrs: BP Temp Temp src Pulse Resp SpO2 Weight 07/01/21 0800 122/74 37.1 ??C (98.7 ??F) Oral 56 15 92 % -- 07/01/21 0750 -- -- -- 56 14 90 % -- 07/01/21 0749 -- -- -- 56 16 (!) 89 % -- 07/01/21 0748 -- -- -- 56 12 (!) 89 % -- 07/01/21 0747 -- -- -- 59 19 (!) 87 % -- 07/01/21 0746 -- -- -- 57 16 (!) 87 % -- 07/01/21 0700 128/65 -- -- 60 13 92 % -- 07/01/21 0600 123/61 -- -- 61 14 92 % -- 07/01/21 0528 119/59 -- -- 61 -- -- -- 07/01/21 0500 119/59 -- -- 59 15 96 % -- 07/01/21 0400 129/67 36.6 ??C (97.9 ??F) Oral 54 14 94 % -- 07/01/21 0300 132/68 -- -- 58 19 93 % -- 07/01/21 0200 -- -- -- 56 15 94 % -- 07/01/21 0100 -- -- -- 52 14 94 % -- 07/01/21 0000 -- 36.7 ??C (98 ??F) Oral (!) 47 14 96 % 76.2 kg (167 lb 15.9 oz) 06/30/212299 -- -- -- (!) 48 12 95 % -- 06/30/212236 127/78 -- -- 54 -- 96 % -- 06/30/212232 -- -- -- 52 -- 95 % -- 06/30/212227 -- -- -- 51 -- 95 % -- 06/30/212220 130/80 -- -- 60 -- 95 % -- 06/30/212216 -- -- -- 50 -- 95 % -- 06/30/212210 -- -- -- 52 -- 95 % -- 06/30/212205 -- -- -- 51 -- 95 % -- 06/30/212199 -- -- -- 60 -- 95 % -- 06/30/212155 142/76 -- -- 57 -- 92 % -- 06/30/212103 112/72 -- -- 54 -- -- -- 06/30/212099 -- -- -- 56 15 92 % -- 06/30/211999 -- -- -- (!) 48 14 96 % -- 06/30/21 1930 -- 36.4 ??C (97.6 ??F) Oral 56 11 91 % -- 06/30/21 1800 -- 36.5 ??C (97.7 ??F) Oral 59 19 95 % -- 06/30/21 1700 -- -- -- 51 12 94 % -- 06/30/21 1600 -- -- -- 57 16 95 % -- 06/30/21 1500 -- -- -- 64 13 92 % -- 06/30/21 1445 126/73 -- -- 68 24 96 % -- 06/30/21 1443 -- 35.7 ??C (96.3 ??F) Axillary 74 14 96 % -- 06/30/21 1430 -- -- -- 71 13 96 % -- Body surface area is 1.94 meters squared. Wt Readings from Last 3 Encounters: 07/01/21 76.2 kg (167 lb 15.9 oz) 06/30/21 75.7 kg (166 lb 14.2 oz) Constitutional: Well developed, appears in NAD HENT: normocephalic with bandage around head. Neck supple and non- tender, no lymphadenopathy appreciated. Pulm: Clear to auscultation bilaterally, no wheezes, rhonchi or rales; good inspiratory effort CVS: normal S1 and S2, RRR, no murmurs GI: Soft, non-tender, bowel sounds appreciated Ext: No edema, clubbing MSK: No joint swelling, no spinal tenderness Neuro: CN2-12 grossly intact, no focal deficits. R hemiparesis 4/5, no other focal weakness. Tinel'ssign and Phalen's sign negative Psych/ mood: appears a bit sad. DIAGNOSTICS Recent Results (from the past 24 hour(s)) Surgical Pathology Report Result Value Ref Range Surgical Pathology Report [id number] Location: OR; OR04; A The signing pathologist has (i) examined the relevant preparation(s) for the specimen(s) and (ii) rendered or confirmed the diagnosis(es). . Frozen Section FROZEN SECTION DIAGNOSIS A-FS1: Smear and frozen section preparations on Likely Lung Primary. ? Small Cell or Not???, excision : EPITHELIOID NEOPLASM, FAVOR METASTATIC CARCINOMA. (GJZ) 06/30/21 13:25 Electronically signed by: Wally Ambriz MD Verified: 06/30/2021 13:30 Pathologist Performed at: -[facility] Dept. of Pathology, [place], [place] This intraoperative consultation should be interpreted as a preliminary diagnosis pending review of the entire specimen and special studies, if any. A final Surgical Pathology report will follow this preliminary Frozen Section report(s). POCT Glucose Result Value Ref Range POC Glucose 156 65 - 199 mg/dL POCT Glucose Result Value Ref Range POC Glucose 126 65 - 199 mg/dL Basic Metabolic Panel (non-fasting) Result Value Ref Range Glucose Lvl 121 65 - 199 mg/dL BUN 18 10 - 20 mg/dL Creatinine 0.93 0.80 - 1.50 mg/dL Sodium 136 135 - 145 mmol/L Potassium 4.3 3.5 - 5.0 mmol/L Chloride 100 98 - 107 mmol/L CO2 24 22 - 31 mmol/L Anion Gap 12 5 - 15 mmol/L Calcium 8.4 (L) 8.5 - 10.5 mg/dL Estimated GFR 81 >=60 mL/min/1.73 m?? Magnesium Result Value Ref Range Magnesium 0.90 0.69 - 1.07 mmol/L Phosphorus Result Value Ref Range Phosphorus 3.4 2.5 - 4.5 mg/dL Hemogram Result Value Ref Range WBC 16.1 (H) 4.0 - 9.5 x10(3)/mcL RBC 4.11 (L) 4.58 - 5.54 x10(6)/mcL Hemoglobin 12.1 (L) 13.7 - 16.5 g/dL Hematocrit 35.9 (L) 40.5 - 48.5 % MCV 87.3 82.9 - 93.1 fL MCH 29.4 27.5 - 32.1 pg MCHC 33.7 32.0 - 35.7 g/dL Platelets 319 145 - 357 x10(3)/mcL RDWSD 39.3 36.0 - 45.0 fL RDWCV 12.2 11.4 - 13.8 % MPV 10.5 7.6 - 12.9 fL nRBC % Auto 0.0 % nRBC Abs Auto 0.000 0.000 - 0.000 x10(3)/mcL Differential, Automated Result Value Ref Range Neutrophils % 84.1 % Neutr Abs (ANC) 13.53 (H) 1.70 - 6.10 x10(3)/mcL Lymphocytes % 7.7 % Lymphocytes Abs 1.2 0.9 - 3.2 x10(3)/mcL Monocytes % 7.2 % Monocyte Abs 1.2 (H) 0.3 - 0.9 x10(3)/mcL Eosinophils % 0.0 % Eosinophils Abs 0.0 0.0 - 0.4 x10(3)/mcL Basophils % 0.1 % Basophils Abs 0.0 0.0 - 0.1 x10(3)/mcL Immature Gran % 0.90 % Beba Gran Abs 0.14 (H) 0.00 - 0.04 x10(3)/mcL POCT Glucose Result Value Ref Range POC Glucose 145 65 - 199 mg/dL POCT Glucose Result Value Ref Range POC Glucose 127 65 - 199 mg/dL PATHOLOGY Frozen section from brain resection on 06/30: EPITHELIOID NEOPLASM, FAVOR METASTATIC CARCINOMA STAGING WORK UP CT C/A/P on 06/28/21: ?? 1. Right hilar masses with central low-attenuation suggesting necrosis. Pathologic mediastinal adenopathy. Findings likely represent primary lung cancer. 2. 8mm low-attenuation focus posterior segment right lobe of liver, too small to characterize. 3. Changes of centrilobular emphysema. Brain MRI on 06/30/21: There has been interval left-sided craniotomies with [...] Blood products are associated with areas of resection ASSESSMENT and PLAN 75 y.o. M, current smoker (58 pk history), who was admitted on 06/28/21 for expedited work up after presenting with progressive R sided weakness and R foot drop over the past 3 weeks as well as headaches. He saw a neurologist and an MRI of his lumbar spine was c/w degenerative disease. [facility]-sp[facility] showed multiple intracranial lesions concerning for metastasis. He presented to [facility] on 06/[address] C/A/P showed Right hilar masses and mediastinal adenopathy. He underwent a L frontal and parietal craniotomy with resection of the brain lesions on 06/30 with frozen sectionc/w epithelioid neoplasm, favor metastatic carcinoma. - This is likely metastatic cancer with lung primary, we will f/u on official path results for confirmation and molecular studies to assess for targetable mutations - Treatment will likely be chemo/immunotherapy or targeted therapy depending on molecular studies - Rad.Onc consult for possible adjuvant radiation to brain. I wonder if he may be a candidate for SRS despite the multifocal lesions. - No indication for inpatient treatment, we will have him f/u in the office outpatient. He would like to establish care at [facility], we will plan for him to f/u with one of our oncologists there. Thank you for the consult. Patient's case was discussed with my attending Dr. Ana Delvalle Hematology/Medical Oncology Fellow Page # [phone] 07/01/21, 9:57 AM Attestation: I saw this patient with Dr. Jeana Delvalle on 07/01/2021. I agree with the details of History and Physical Exam as documented in the above note. I was present for the critical portions of the history, exam and discussion of our recommendations. Renetta Perez MD Brief Op Note - Emmy Boyer MD - 06/30/2021 2:03 PM EDT Brief Operative Note Patient Name: Betsy Laird : [id number] MR#: [id number] Case Date: 06/30/2021 Surgeon: Surgeon(s) and Role: * Estefania Justice MD - Primary * Emmy Boyer MD - Resident Preoperative diagnosis: brain mets Postoperative diagnosis: brain mets Procedure(s) (LRB): @CRANI, FOR TUMOR, SUPRATENTORIAL, NOT MENINGIOMA (WRVU 30.83) (Left) STEREOTACTIC COMPUTER-ASSTD NAVIGATIONAL CRANIAL INTRADURAL (WRVU 3.75) (N/A) MICROSCOPE USE (WRVU 3.46) (N/A) MODIFIER,STEALTH 3 W/O KINEVO,CRANI/SPINE ONLY (N/A) Anesthesia: General Findings: Two small LEFT craniotomies via separate incisions. (1) L frontal; (2) L parietal for the resection of two metastatic masses. Frozen section consistent with metastatic non-small cell carcinoma. Complications: None. Estimated Blood Loss: 50 mL* No values recorded between 06/30/2021 12:35 PM and 06/30/2021 1:54 PM * Specimens removed during surgery: Order Name Source Comment Collection Info Order Time SPECIMEN TO PATHOLOGY brain mets Likely Lung Primary. ? Small Cell or Not??? excision YES, Please perform frozen section No 06/30/2021 12:51 PM Time specimen removed from patient: 12:51 PM Number of tissue samples (in container) 1 Biospecimen to store? No SPECIMEN TO PATHOLOGY brain mets Likely Lung Primary. ? Small Cell or Not??? excision No 06/30/2021 12:51 PM Time specimen removed from patient: 12:51 PM Number of tissue samples (in container) 1 Biospecimen to store? No Fluids: Intraprocedure Crystalloid Total None PRBCs: none (See Anesthesia Record/Report for Other Blood Products) Urine Output: (no urine output recorded) Drains: None Disposition: awakened from anesthesia, extubated and taken to the recovery room in a stable condition, having suffered no apparent untoward event. Condition: doing well without problems (Please see the Surgical Encounter Summary for any Implant and Specimen details pertinent to this patient.) Surgical Infection Prevention Bundle Used? N/A Emmy Boyer MD 06/30/2021 2:05 PM [facility] Neurosurgery Inpatient Pager: [phone] Personal Pager: [phone] Op Note - Estefania Justice MD - 06/30/2021 12:35 PM EDT [facility] [place] [facility] Operative Note Patient Name: Betsy Laird : [id number] MR#: [id number] Case Date: 06/30/2021 Surgeon: Surgeon(s) and Role: * Estefania Justice MD - Primary * Emmy Boyer MD - Resident Preoperative diagnosis: brain mets Postoperative diagnosis: brain mets Procedure(s) (LRB): @CRANI, FOR TUMOR, SUPRATENTORIAL, NOT MENINGIOMA (WRVU 30.83) (Left) STEREOTACTIC COMPUTER-ASSTD NAVIGATIONAL CRANIAL INTRADURAL (WRVU 3.75) (N/A) MICROSCOPE USE (WRVU 3.46) (N/A) MODIFIER,STEALTH 3 W/O KINEVO,CRANI/SPINE ONLY (N/A) Anesthesia: General Estimated Blood Loss: 50 mL The patient is a 75-year-old male who was recently admitted with right-sided lower extremity weakness. Intracranial imaging revealed multiple intracranial tumors suggestive of metastases and a chest CTrevealed a likely lung primary. Due to the size of 2 of the lesions in the left frontal lobe, an operative resection was planned to decrease brain compression, offer a diagnosis, and to facilitate adjuvant treatments Operative note Patient was anesthetized and placed on the operating table in a supine position. Three-point Olivares pin fixation was applied. Surface anatomy was registered into the navigational system with an approximate 2 mm of error. Based on this we were able to outline the midline as well as the 2 frontal lobelesions, one in the anterior frontal lobe, and 1 at the frontoparietal junction, immediately at or behind the motor strip. Both areas were prepped and draped in the usual sterile fashion. Following a timeout, coronal incisions were made over each of the sites independently. In the anterior region, we drilled a single bur hole just to the left of midline away from the sagittal sinus and a craniotomy was turned without difficulty. In the posterior incision, we drilled 2 slots across the midline and then performed a craniotomy predominantly on the left side. The anterior metastasis was addressed first. The dura was opened in a curvilinear fashion based off of the midline allowing us to identify the cortex. The navigational system corresponded to the tumor being immediately deep and therefore a small corticotomy was made with bipolar electrocautery followed by a #15 blade. Several millimeters deep, we identified a moderately vascular, discohesive tissue. Specimens were sent to pathology and returned as metastatic carcinoma with a note that this did not appear to be small cell carcinoma. Therefore using suction and ultrasonic aspiration, we continue to debulk the tumor. The operating microscope was brought into position in order to better visualize the cavity. We continued to resect until white matter boundaries were identified in all directions. We then placed Floseal into this region and covered it with a cottonoid madhavi. We then turned our attention to the posterior region, based on preoperative MRI images, we felt as though the tumor was in the posterior aspect or immediately behind the motor strip. Therefore we opened the dura in a U-shaped manner based off of the midline. We identified what appeared to be the central sulcus and motor strip. At the anticipated posterior margin of the tumor, we made a small corticotomy in the cortex measuring approximately 10 mm. Several millimeters deep to this we encountered abnormal tissue once again. We appeared to be at the posterior margin and fortunately the tumor was very discohesive therefore suction and ultrasonic aspiration were used to remove the majority up to what ap peared to be normal white matter. We were careful not to be overly aggressive in this region due to surrounding fiber pathways. However the region was aggressively debulked and under much less tension at the end. Once again the microscope was used to facilitate the debulking. Similar to the first craniotomy site, this area was filled with Floseal and covered with a cottonoid madhavi. We then liberally irrigated both regions, removing any free Floseal. No active bleeding was noticed.Both dural leaflets were really placed and Gelfoam positioned over them. The bone flaps were replaced with microplates and the overlying skin closed at the galeal and skin level. The patient was removed from the Olivares, extubated and transferred to the ICU in stable condition Attestation: Case Date: 06/30/2021 I was present and I participated during the entire procedure (does not need to include opening and closing). ESTEFANIA JUSTICE MD 06/30/2021 Initial Assessments - Meg Larkin MSW - 06/30/2021 10:02 AM EDT Office of Care Management Initial Assessment JOSIANE Caraballo reviewed record and discussed patient with Care Team. Source of Information: Team, bedside nurse, medical record, and Chart Review Reason for Hospitalization: Suspected brain tumor metastasis Covid Vaccination Status: (Unable to assess) Last COVID test: Lab Results Component Value Date [id number] Not Detected 06/28/2021 Past medical History: History reviewed. No pertinent past medical history. Hospitalizations Within the Past 30 Days: no previous admission in last 30 days Current Decision-Making Capacity: Self Advance Care Planning: Attempt Cardiopulmonary Resuscitation - Inpatient <no information> -Advanced Directive: No, need to discuss (Antonina GarciaIkjfspccww-gjhoa-ray surrogacy) If AD's have not been completed Antonina Way would be surrogate decision maker per [place] surrogatedecision making law. (Only good for 180 days) Any patient receiving care at [facility] must abide by [place] law. The hierarchy [...] (i) The agent with financial power of insurance attorney or a conservator appointed in accordance with RSA 464-A. (j) The guardian of the patient???s estate. Current Coping/Education/Information Needs: Patient may benefit from AD information Current Functional Ability: Assistive Equipment Functional Status Prior to Admission: Assistive Equipment Prior ADLs & IADLs: Independent with all ADLs & IADLs Home Environment: Others in the home: pet(s) (Patient lives alone with his dog). Current Living Arrangements: home/apartment/condo. Accessibility Concerns:1 level ranch style house with a basement and a ramp to enter with biliateral railings. Current DME: grab bar - tub/shower, walker - standard, wheelchair - manual Home Address confirmed as: [address] [place] [id number] Social & Family Supports: All names listed below confirmed with patient as current and correct Extended Emergency Contact Information Primary Emergency Contact: Antonina Garcia Relation: Child Secondary Emergency Contact: Sandro Tobias Relation: Child Current Care Provided by: self, child(annette) (Daughter Ana able to help occasionally) Provides Primary Care For: pet(s) Caregiver if needed: homecare agency (If patient needs assistance at home he would benefit from a homecare agency due to his daughter Ana working display department manager and has a daughter so is unable to provide ample care but can assist.) Quality of Family relationships: helpful, involved, supportive Community Resources being provided currently: clinic(s) (Oncologist) Behavioral Health History: None identified Substance Use/Abuse confirmed: Social History Tobacco Use [...] Addiction likely Other Pertinent/Service Specific Information: Patient lives alone(cares for his dog) with his daughter, Ana, close by. His daughter is able to help occasionally but does work display department manager and has a teenage daughter at home. Patient has another daughter, Antonina, who lives farther away but is supportive. Patient was previously very independent however he has reported multiple falls recently and has started using assistive equipment (walker, wheelchair, and grab bars). Health/Prescription Coverage: Primary Insurance: [facility] MANAGED MEDICARE Payor: P MANAGED MEDICARE / Plan: [employer] MANAGED MEDICARE / Product Type: *No Product type* / Secondary Insurance: N/A Prescription Coverage: Yes Preferred Pharmacy: [id number] [id number] Status: Patient is a : No Primary Care Provider: Myriam Riggins MD [phone] Patient/Caregiver Goals of Treatment: Unable to assess but patient would benefit from an inpatient rehab stay to obtain his strength prior to returning home alone Potential Needs for Transition of Care: rehabilitation services Agency Referrals: Patient will need inpatient rehab. Transportation: no concerns Transportation Anticipated: ambulance, family or friend will provide Concerns to be Addressed: no discharge needs identified Assessment: Patient is a 75 year old male admitted for brain lesions. Plan: No SW need identified at this time but [employer]OCIATE will remain available should any needs arise. A member of the Care Management team will continue to monitor progress, follow for continuity of care and assist with transition of care planning. JOSIANE Castro Safety Lead Hospital Medicine/ Medical Specialties Pager- [phone] Assessment & Plan Note - Benita Leblanc MD - 06/29/2021 1:57 PM EDTAssociated Problem(s): CAD (coronary artery disease), HLD CAD s/p CABG in 2019. No acute issues. PLAN -Hold ASA per neurosurgery; okay to resume 2 weeks post op (07/14) -Continue Atorvastatin and BB Assessment & Plan Note - Benita Leblacn MD - 06/29/2021 1:56 PM EDTAssociated Problem(s): Cigarette nicotine dependence with withdrawal Patient has chronic nicotine dependence, quit smoking several days prior to admission. 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 MRI showing multiple bilateral intracranial lesions; largest lesion is in the left frontal lobe with surrounding vasogenic edema. Imaging is most consistent with metastasis and patient has concurrent hilar mass which is the likely primary malignancy. Neurosurgery has been consulted and performed debulking procedure/craniotomy on 06/30, prelimbiopsy on frozen section was NSCLC. Have consulted oncology, radiation oncology, and palliative care who have all evaluated patient and plan for outpatient follow up once definitive diagnosis is established to discuss treatment options. He will also need outpatient neurology follow up for seizure. Continues to have gradual improvement in R sided weakness. PT/OT recommended acute rehab on discharge. PLAN -Appreciate Neurosurgery/Onc/Rad Onc/Palliative Care consults -Maintain SBP < 160 -SQH ok per neurosurgery -Resume home ASA 2 weeks post op (07/14) -Decadron taper per Neurosurgery recommendations, starting 07/02: 4mg BIDx3d, 2mg BIDx3d, 1mg BIDx3d,1mg QDx3d, stop -GI ppx while on steroids -Continue keppra 1000 mg BID -Q shift neuro checks -Target eunatremia post craniotomy -PT/OT, recommend acute rehab -F/u with Neurosurgery on 08/02/21 -Will also have f/u with Onc, Rad Onc, Palliative Care, and Neurology Assessment & Plan Note - Benita Leblanc MD - 06/29/2021 1:31 PM EDTAssociated Problem(s): Non-small cell carcinoma of lung He has evidence of a right hilar mass on CT scan that could be suggestive of primary lung malignancy. Evidence of metastasis to the brain; biopsy obtained during craniotomy. Preliminary path results show NSCLC. PLAN -Smoking cessation -Onc, Rad Onc, Pall Care have all been consulted, appreciate recommendations -Plan for outpatient follow up for ongoing management Consult Note - Amy Dillon [facility] - 06/29/2021 12:00 PM EDT TelePharmacy Home Medication List Update for Medication Reconciliation 06/29/21 12:00 PM Betsy Laird 1945 Allergies Allergen Reactions ??? Cis Free Text Allergy Environmental. CIS - Allergic Rhinitis ??? Person Interviewed: patient ??? Quality of Interview/accuracy of medication list: poor ??? Sources used to compile medication list: [x] Epic medication list [x] SureScripts [] PCP/Specialist list [] Retail pharmacy [] Patient list [] MAR [] Other ??? Changes made to home medication list: o Additions: - None o Deletions: - None o Changes: - Ibuprofen 600 mg po every 6 hours prn ??? Additional Notes: None ??? Recommended changes: None The home medication list is now updated to the best of my knowledge and is ready to be reconciled bythe provider. Please contact the TelePharmacy Medication Reconciliation Pharmacist at for any questions. Amy Dillon RPH Consult Note - Estefania Justice MD - 06/28/2021 8:00 PM EDT Neurosurgery ED/Inpatient Consultation Note Date & Time of Consult: 06/28/2021 9:00 PM Referring Service: Emergency Medicine Referring Attending: Dr. Dunn Neurosurgery Attending: Dr. Justice Place of Consult: ED26 ID: Name: Betsy Laird, 75 y.o. male Admission Date: 06/28/2021 CC: Multiple brain lesions, suspect metastasis HPI: This is a 75 y.o. male with PMH of tobacco use [quit ~5 days ago they just don't taste good], CAD s/p CABG, on ASA 81mg daily [has not taken for a few days] who presented to the ED at [facility] with 3-4 week history of RIGHT [...] daughters took him to the ED at [facility] where an MRI of his brain and cervical spine was done revealing multiple intracranial lesions concerning for metastases. He was discharged from the ED at [facility] and was told to drive to [...] auditory symptoms. Denies bowel or bladder symptoms. PMH: Tobacco use CAD CABG Medications: No current facility-administered medications on file prior to encounter. Current Outpatient Medications on File Prior to Encounter Medication Sig Dispense Refill ??? metoprolol succinate XL (Toprol-XL) 25 mg Tablet Sustained Release 24 hr Take 37.5 mg by mouth nightly. ??? furosemide (Lasix) 20 mg Tablet Take 20 mg by mouth daily. ??? atorvastatin (Lipitor) 80 mg Tablet Take 80 mg by mouth every evening. ??? aspirin EC 81 mg Tablet, Delayed Release (E.C.) Take 81 mg by mouth daily. ??? ibuprofen (ADVIL;MOTRIN) 200 mg tablet ??? [DISCONTINUED] sildenafil (VIAGRA) 100 mg tablet 100mg, PO, PRN Scheduled Meds: ??? iohexoL (Omnipaque) radiology oral prep (50 mL of oral contrast) 240 mL Oral Once Followed by ??? iohexoL (Omnipaque) radiology oral prep (50 mL of oral contrast) 240 mL Oral Once Followed by ??? iohexoL (Omnipaque) radiology oral prep (50 mL of oral contrast) 240 mL Oral Once Followed by ??? iohexoL (Omnipaque) radiology oral prep (50 mL of oral contrast) 240 mL Oral Once Continuous Infusions: PRN Meds:. Allergies: Allergies Allergen Reactions ??? Cis Free Text Allergy Environmental. CIS - Allergic Rhinitis Family Hx: No family history on file. Social Hx: Social History Socioeconomic History ??? Marital status: Spouse name: Not on file ??? Number of children: Not on file ??? Years of education: Not on file ??? Highest education level: Not on file Occupational History ??? Not on file Tobacco Use ??? Smoking status: Not on file ??? Smokeless tobacco: Not on file Substance and Sexual Activity ??? Alcohol use: Not on file ??? Drug use: Not on file ??? Sexual activity: Not on file Other Topics Concern ??? Not on file Social History Narrative ??? Not on file Social Determinants of Health Financial Resource Strain: Not on file Food Insecurity: Not on file Transportation Needs: Not on file Physical Activity: Not on file Housing Stability: Not on file Lives alone, daughters live nearby Tobacco use: stopped smoking 5 days ago because they didn't taste good anymore Alcohol use: none Marijuana use: none Illicit drug use: none Vitals: Vitals: 06/28/21 1643 BP: 154/86 Patient Position: Sitting Pulse: 77 Resp: 18 Temp: 36.8 ??C (98.3 ??F) TempSrc: Tympanic SpO2: 96% Weight: 77.1 kg (170 lb) Height: 177.8 cm (5' 10) ROS: Review of Systems Constitutional: Positive for malaise/fatigue. Negative for chills, fever and weight loss. HENT: Negative. Eyes: Negative. Respiratory: Positive for cough and sputum production. Negative for hemoptysis, shortness of breath and wheezing. Cardiovascular: Negative for chest pain and palpitations. Gastrointestinal: Negative. Genitourinary: Negative. Musculoskeletal: Negative. Skin: Negative. Neurological: Positive for focal weakness, weakness and headaches. Negative for dizziness, tingling,sensory change, speech change and seizures. Endo/Heme/Allergies: Positive for environmental allergies. Does not bruise/bleed easily. Psychiatric/Behavioral: Negative. Physical Exam: -Gen: Pleasant gentleman who appears stated age sitting up on ED stretcher -HEENT: ATNC -CV: S1 S2, RRR, no MRG -Resp: (+) cough, diminished breath sounds bilaterally -GI: Soft, non-tender, non-distended -Neuro: Mental Status/Cognitive: Awake, alert, oriented x3 GCS: 15 Speech: Fluent, appropriate. Names 3/3 objects, repetition intact. Cranial Nerves: PERRL 3mm reactive bilaterally CN II - Visual acuity and sherwood grossly intact CN III, IV, - EOMI CN V - Sensation intact in V1,2 and 3 distributions CN VII - No facial asymmetry/droop CN VIII - Intact hearing bilaterally to finger rub CN IX, X - Palate and uvula midline CN XI - Trapezius 4/5 on RIGHT, 5/5 on LEFT CN XII - Tongue midline Tone: Normal Power: RIGHT pronator drift Segment Muscle Action Left Right C5 Deltoid Shoulder Abduction 5 4 C6 Biceps Elbow flexion 5 5 C6 Extensor carpi radialis Wrist extension 5 4+ C7 Triceps Elbow extension 5 5 C8 Finger flexors Grasp 5 4+ T1 Interossei Finger abduction 5 4+ L2 Iliopsoas Hip flexion 5 4+ L3 Quadriceps Knee extension 5 4 L4 Tibialis anterior Dorsiflexion 5 0 L5 Extensor hallucis Great toe extension 5 4- S1 Gastrocnemius Plantar flexion 5 4- Gait: Not assessed Sensation in the extremities: Light touch: Intact x 4 Cerebellar exam: No dysmetria No intention tremor Labs: Recent Labs 06/28/211921 WBC 10.7* HGB 14.3 PLATELET 376* Recent Labs 06/28/211921 NA 138 K 4.0 CL 102 CO2 22 BUN 17 CREATININE 0.91 No results for input(s): PT, INR in the last 72 hours. Imaging: CT Head wo Contrast 06/28/21: COMPARISON: Brain MRI 06/28/2021 ?? FINDINGS: There is a large peripherally hyperdense mass within the superior left frontal lobe which measures 3 x 2.7 x 2.6 cm in size with central low attenuation. There is extensive surrounding vasogenic edema and local mass effect, with mild gvus-ya-kdenp subfalcine herniation, and effacement of the anterior left lateral ventricle there is minimal 3 mm kvjv-ao-uyoci midline shift measured at the foramen of Monro. ?? There is an additional 3 cm hyperdense mass at the superior left vertex, with surrounding vasogenic edema with sulcal effacement. ?? There is an additional 1.5 cm mass in the superior right frontal lobe (axial series 4 image 28) with additional small 5 mm lesion located more posteriorly (axial series 2 image 33). ?? There is a right anterior middle cranial fossa arachnoid cyst which measures 3 x 2.4 cm in size with mild mass effect upon the anterior right temporal lobe. ?? No extra-axial collections. There is extensive vasogenic edema within the anterior and superior left frontal lobe. Global Cuellar matter white matter differentiation is otherwise well preserved. The orbits are unremarkable. The visualized paranasal sinuses are clear. The mastoid air cells are clear. No suspicious osseous lesions. No calvarial fracture. Normal extracalvarial soft tissues. ?? IMPRESSION 1. Multiple large hyperdense masses within the superior left frontal lobe with extensive surrounding edema. There are additional small hyperdense masses in the superior right frontal lobe. Findings are most consistent with metastases. The degree of edema and mass effect is unchanged. 2. Small right middle cranial fossa arachnoid cyst. MRI Brain wwo Contrast 06/28/21 1227 OSH read: Impression: There are multiple metastatic appearing enhancing lesions in both sides of the brain, most prominenton the left side as described above in the frontal and parietal lobes and there is abundant surrounding white matter edema and mass effect upon the lateral ventricle and some shift of midline structures towards the opposite-right side, approximately 3-4 millimeters These lesions also exhibit some focal blooming signal on susceptibility imaging consistent with element of prior intra lesion hemorrhage MRI Cervical Spine 06/28/21 1227 OSH read: Impression: 1. Multilevel chronic degenerative disc disease changes. No dominant disc herniation nor prominent central canal stenosis. There is an element of bilateral foraminal stenosis at C5-6 and C6-7 levels aswell as C7-T1. 2. However, the main findings in this patient today are in the brain where there are ominous ring-enhancing lesions with prominent surrounding white matter edema and mild shift of midline structures towards the right side. Please see that separate brain MRI report MRI Lumbar Spine wo Contrast 06/24/21 1811 OSH read: Impression: 1. Multilevel degenerative changes in the lumbar spine resulting in central spinal canal and neural foraminal stenosis. 2. Left paracentral disc herniation at L3-4 with extrusion posterior to the L4 vertebral body. It causes left lateral recess stenosis and compresses the left L4 nerve root. Assessment: This is a 75 y.o. male with PMH of tobacco use [quit ~5 days ago they just don't taste good], CAD s/p CABG, on ASA 81mg daily [has not taken for a few days] who presented to OSH with 3-4 week historyof initially RIGHT lower extremity weakness, inability to ambulate without assistance x1 week, and ap proximately 5 day history of RIGHT upper extremity weakness. MRI exhibited multiple intracranial lesions, the largest of which are in the LEFT frontal and parietal lobes with surrounding vasogenic edema concerning for metastases. He has notable weakness on the RIGHT side, both in his upper and lower extremity, 0/5 dorsiflexion. Plan: -Recommend admission to Hospital Medicine for metastatic disease workup -Dexamethasone 10mg IV now, then 4mg PO Q6H -Close neurological observation, q4H checks -Hold anticoagulation/antiplatelets, SCDs while in bed for DVT ppx -CXR, CT CAP -Check coags -BP control, keep SBP<160 -GI prophylaxis while on steroids -Further recommendations pending CXR and CT CAP findings -COVID admission surveillance testing secondary to new cough -FULL CODE, patient wishes I reviewed the images with the patient and his daughters who are at the bedside. All questions were answered. Above recommendations discussed with Dr. Dunn, ED Attending PT seen and evaluated. 75 yo male with + smoking hx and new onset of R weakness. Multiple intracranial lesions and lung mass. Plan for surgical resection of 2 masses for diagnosis and relief of brain compression/edema in preparation for radiation treatment documented in this encounter Plan of Treatment Upcoming Encounters Date Type Specialty Care Team Description 09/13/2021 Hospital Encounter Radiology Curtis Laura MD [facility] RADIATION [place], [place] [address] (Wo rk) 10/07/2021 Office Visit Neurology Wally Chow MD [facility] NEUROLOGY [place], [place] [address] (Wo rk) Scheduled Referrals Name Type Priority Associated Order Schedule Diagnoses Referral to Outpatient Referral Routine Metastatic cancer Ord ered: Palliative Care to brain 07/08/2021 Referral to Outpatient Referral Routine Metastatic cancer Ord ered: Neurology to brain 07/08/2021 Seizure documented as of this encounter Procedures Procedure Name Priority Date/Time Associated Comments Diagnosis SCAN, PERIPHERAL BLOOD Routine 07/08/2021 5:07 AM [...] 07/05/2021 1:22 PM Res ults for this ([facility]) EDT [...] n the results section. HC VENIPUNCTURE Routine 07/03/2021 11:58 Results for [...] DIFF Routine 07/03/2021 12:42 AM EDT HC VENIPUNCTURE Routine 07/03/2021 12:42 Results for this AM EDT procedure are i n the results section. HC MAGNESIUM, SERUM Routine 07/03/2021 12:42 Resu lts for this AM EDT procedure are i n the results section. BASIC METABOLIC PANEL Routine 07/03/2021 12:42 Re sults for this (NON-FASTING) AM EDT procedure are in the results section. POCT GLUCOSE Routine 07/03/2021 12:02 Results for this AM EDT procedure are i n the results section. POCT GLUCOSE Routine 07/02/2021 7:26 PM Results f or this EDT procedure are i n the results section. POCT GLUCOSE Routine 07/02/2021 4:34 PM Results f or this EDT procedure are i n the results section. HC VENIPUNCTURE Routine 07/02/2021 11:52 Results for [...] DIFF Routine 07/02/2021 2:10 AM EDT HC PHOSPHORUS, SERUM Routine 07/02/2021 2:10 AM R esults for this EDT procedure are i n the results section. HC MAGNESIUM, SERUM Routine 07/02/2021 2:10 AM Re sults for this EDT procedure are i n the results section. HC HEMOGLOBIN A1C Routine 07/02/2021 2:10 AM Resu lts for this EDT procedure are i n the results section. HC VENIPUNCTURE Routine 07/02/2021 2:10 AM Result [...] the results section. POCT GLUCOSE Routine 07/01/2021 4:30 AM Results f or this EDT procedure are i n the results section. HEMOGRAM Routine 07/01/2021 12:30 Results for this AM EDT procedure are i n the results section. DIFFERENTIAL, AUTOMATED Routine 07/01/2021 12:30 Results for this AM EDT procedure are i n the results section. HC CBC,PLT & AUTO DIFF Routine 07/01/2021 12:30 AM EDT HC PHOSPHORUS, SERUM Routine 07/01/2021 12:30 Res ults for this AM EDT procedure are i n the results section. HC MAGNESIUM, SERUM Routine 07/01/2021 12:30 Resu lts for this AM EDT procedure are i n the results section. BASIC METABOLIC PANEL Routine 07/01/2021 12:30 Re [...] 06/30/2021 9:30 AM SUPRATENTORIAL, NOT EDT MENINGIOMA HEMOGRAM Routine 06/30/2021 1:12 AM Results f or this EDT procedure are i n the results section. DIFFERENTIAL, AUTOMATED Routine 06/30/2021 1:12 AM Results for this EDT procedure are i n the results section. HC CBC,PLT & AUTO DIFF Routine 06/30/2021 1:12 AM EDT HC MAGNESIUM, SERUM Routine 06/30/2021 1:12 AM Re sults for this EDT procedure are i n the results section. HC VENIPUNCTURE Routine 06/30/2021 1:12 AM Result s for this EDT procedure are i n the results section. ZEEG AWAKE, ASLEEP, Routine 06/29/2021 2:20 AM Re sults for this DROWSY EDT procedure are i n the results section. CT CHEST ABDOMEN PELVIS STAT 06/28/2021 11:22 Results for this W CONTRAST (GENERIC) PM EDT procedu re are in the results section. HC PARTIAL STAT 06/28/2021 9:38 PM Results f or this THROMBOPLASTIN TIME EDT procedur e are in the results section. HC PROTHROMBIN TIME STAT 06/28/2021 9:38 PM Re sults for this EDT procedure are i n the results section. RAPID COVID-19 PCR STAT [...] AUTO DIFF STAT 06/28/2021 7:22 PM EDT BASIC METABOLIC PANEL STAT 06/28/2021 7:22 PM Results for this (NON-FASTING) EDT procedure are in the results section. FILM LIBRARY STORAGE STAT 06/28/2021 6:09 PM R esults for this ONLY MR HEAD AND SPINE EDT proce dure are in the results section. FILM LIBRARY STORAGE STAT 06/24/2021 12:00 Res ults for this ONLY MR SPINE AM EDT procedure are in the results section. documented in this encounter Results Scan, Peripheral Blood (07/08/2021 5:07 AM EDT) [facility] HSystem Method Time Signature Plat Estimate Normal [facility] RBC Morphology Abnormal [facility] Rishabh Cells 1-5 /HPF [facility] Specimen Anatomical Collection Method Collection Time Receive d Time (Source) Location / / Volume Laterality Blood 07/08/2021 5:07 AM 5:26 EDT AM EDT Resulting Agency Comment Spec In Lab Benita Leblanc MD HEMATOLOGY ORDERABLES Performing Organization Address City/State/ZIP Code Phon e Number [place] [id number] (ABNORMAL) Differential, Automated (07/08/2021 5:07 AM EDT) [facility] Method Time Signature Neutrophils % 73.1 % [facility] Neutr Abs (ANC) 10.85 (H) 1.70 - [facility] 6.10 [facility] x10(3)/[facility] L LABORATORY Lymphocytes % 13.0 % [facility] Lymphocytes Abs 1.9 0.9 - 3.2 [facility] x10(3)/[facility] LABORATORY Monocytes % 7.3 % [facility] Monocyte Abs 1.1 (H) 0.3 - 0.9 [facility] x10(3)/[facility] LABORATORY Eosinophils % 0.3 % [facility] Eosinophils Abs 0.0 0.0 - 0.4 [facility] x10(3)/[facility] LABORATORY Basophils % 0.7 % [facility] Basophils Abs 0.1 0.0 - 0.1 [facility] x10(3)/[facility] LABORATORY Immature Gran % 5.60 % [facility] Comment: Immature granulocytes(IG's)percentage an d absolute count will include metamyelocytes, myelocytes, and promyelo cytes. Blood smears from CBCs yielding IG's will be scanned manually for concor dance. If this scan disagrees with the automated IG or if promyelocytes are not ed, a manual differential will be performed. Beba Gran Abs 0.84 (H) 0.00 - 0.04 x10(3)/[facility] LABORATORY Specimen Anatomical Collection Method Collection Time Receive d Time (Source) Location / / Volume Laterality Blood 07/08/2021 5:07 AM 5:26 EDT AM EDT Resulting Agency Comment Spec In Lab Benita Leblanc MD HEMATOLOGY ORDERABLES Performing Organization Address City/State/[place] [address] (ABNORMAL) Hemogram (07/08/2021 5:07 AM EDT) Analysis Performed At Patho logist Time Signature WBC 14.9 (H) 4.0 - 9.5 [facility] x10(3)/[facility] LABORATORY RBC 4.45 (L) 4.58 - [facility] [place] 5.54 [facility] x10(6)/[facility] LABORATORY Hemoglobin 13.1 (L) 13.7 - [facility] g/dL [facility] Hematocrit 39.8 (L) 40.5 - [facility] 48.5 % [facility]ORY MCV 89.4 82.9 - [facility] 93.1 fL [facility] LABORATORY MCH 29.4 27.5 - [place] 32.1 pg [facility] LAB[facility]ORY MCHC 32.9 32.0 - [facility] 35.7 g/dL [facility] Platelets 317 145 - 357 [facility] x10(3)/[facility] LABORATORY RDWSD 41.0 36.0 - [place] 45.0 [facility] LABORATORY RDWCV 12.6 11.4 - [facility] 13.8 % [facility] LABORATORY MPV 10.3 7.6 - 12.9 [facility] LABORATORY nRBC % Auto 0.0 % [facility] nRBC Abs Auto 0.000 0.000 - [facility] 0.000 [facility] x10(3)/[facility] LABORATORY Specimen Anatomical Collection Method Collection Time Receive d Time (Source) Location / / Volume Laterality Blood 07/08/2021 5:07 AM 2 5:26 EDT AM EDT Resulting Agency Comment Spec In Lab Benita Leblanc MD HEMATOLOGY ORDERABLES Performing Organization Address City/[facility]/[place] [address] Phosphorus (07/08/2021 5:07 AM EDT) athologist Signature Phosphorus 3.2 2.5 - 4.5 [facility] mg/dL [facility] LAB[facility]ORY Specimen Anatomical Collection Method Collection Time Receive d Time (Source) Location / / Volume Laterality Blood 07/08/2021 5:07 AM 2 5:26 EDT AM EDT Resulting Agency Comment Spec In Lab Benita Leblanc MD CHEMISTRY ORDERABLES Performing Organization Address City/[facility]/ZIP Code Phon e Number [address] Magnesium (07/08/2021 5:07 AM EDT) P athologist Signature Magnesium 0.81 0.69 - 1.07 [facility] mmol/L [facility] Specimen Anatomical Collection Method Collection Time Receive d Time (Source) Location / / Volume Laterality Blood 07/08/2021 5:07 AM 2 5:26 EDT AM EDT Resulting Agency Comment Spec In Lab Benita Leblanc MD CHEMISTRY ORDERABLES Performing Organization Address City/[facility]/[place] [address] (ABNORMAL) Basic Metabolic Panel (non-fasting) (07/08/2021 5:07 AM EDT) P athologist Signature Glucose Lvl 115 65 - 199 [facility] mg/dL [facility] Comment: Diabetes: >=200 mg/dL plus symp toms BUN 25 (H) 10 - 20 mg/dL [facility]ORY Creatinine 0.85 0.80 - 1.50 mg/dL [facility] LABOR[facility]ORY Sodium 131 (L) 135 - 145 mmol/L [facility] Potassium 5.0 3.5 - 5.0 mmol/L [facility] Comment: Please note: ??Patients with WBC >100,00 0 may have falsely elevated Potassium levels. ??For accurate Potassium quantif ication in these patients send serum separator tube (gold top) for subsequent determinations. ??Contact the Clinical Chemistry Laboratory if there are any qu estions. Chloride 99 98 - 107 mmol/L [facility] CO2 23 22 - 31 mmol/L [facility] Anion Gap 9 5 - 15 mmol/L [facility] Calcium 8.5 8.5 - 10.5 mg/dL [facility] Estimated GFR 86 >=60 mL/min/1.73 m?? [facility] Comment: This patient? s estimated [...] (Source) Location / / Volume Laterality Blood 07/08/2021 5:07 AM 2 5:26 EDT AM EDT Resulting Agency Comment Spec In Lab Benita Leblanc MD CHEMISTRY ORDERABLES Performing Organization Address City/State/[place] [address] (ABNORMAL) Basic Metabolic Panel (non-fasting) (07/07/2021 6:20 PM EDT) P athologist Signature Glucose Lvl 146 65 - 199 [facility] mg/dL [facility] Comment: Diabetes: >=200 mg/dL plus symp toms BUN 27 (H) 10 - 20 mg/dL [facility] Creatinine 0.89 0.80 - 1.50 mg/dL [facility] Sodium 134 (L) 135 - 145 mmol/L [facility] Potassium 4.4 3.5 - 5.0 mmol/L [facility] Comment: Please note: ??Patients with WBC >100,00 0 may have falsely elevated Potassium levels. ??For accurate Potassium quantif ication in these patients send serum separator tube (gold top) for subsequent determinations. ??Contact the Clinical Chemistry Laboratory if there are any qu estions. Chloride 98 98 - 107 mmol/L [facility] CO2 24 22 - 31 mmol/L [facility] Anion Gap 12 5 - 15 mmol/L [facility] Calcium 8.6 8.5 - 10.5 mg/dL [facility] Estimated GFR 84 >=60 mL/min/1.73 m?? [facility] Comment: This patient? s estimated glomerular filtration rate (eGFR) is between 84 mL/min/1.73 m2 (patients with less muscl e mass per kg body weight) and 98 mL/min/1.73 m2 (patients with more muscl e [...] (Source) Location / / Volume Laterality Blood 07/07/2021 6:20 PM 2 6:25 EDT PM EDT Resulting Agency Comment Spec In Lab Benita Leblanc MD CHEMISTRY ORDERABLES Performing Organization Address City/[facility]/ZIP Code Phon e Number [address] Osmolality, urine, random (07/07/2021 2:05 PM EDT) athologist Signature U Osmolality 1,058 50 - 1,200 [facility] mOsm/kg [facility] Specimen Anatomical Collection Method Collection Time Receive d Time (Source) Location / / Volume Laterality Urine 07/07/2021 2:05 PM 2 2:15 EDT PM EDT Resulting Agency Comment Spec In Lab Benita Leblanc MD URINE ORDERABLES Performing Organization Address City/[facility]/[place] [address] Sodium, urine, random (07/07/2021 2:05 PM EDT) athologist Signature U Sodium 91 mmol/L [facility] Specimen Anatomical Collection Method Collection Time Receive d Time (Source) Location / / Volume Laterality Urine 07/07/2021 2:05 PM 2 2:15 EDT PM EDT Resulting Agency Comment Spec In Lab Benita Leblanc MD URINE ORDERABLES Performing Organization Address City/[facility]/[place] [address] (ABNORMAL) Differential, Automated (07/07/2021 6:14 AM EDT) [facility] gist Method Time Signature Neutrophils % 71.1 % [facility] Neutr Abs (ANC) 11.32 (H) 1.70 - [facility] 6.10 [facility] x10(3)/[facility] L LABORATORY Lymphocytes % 15.0 % [facility] Lymphocytes Abs 2.4 0.9 - 3.2 [facility] x10(3)/[facility] LABORATORY Monocytes % 8.2 % [facility] Monocyte Abs 1.3 (H) 0.3 - 0.9 [facility] x10(3)/[facility] LABORATORY Eosinophils % 0.6 % [facility] Eosinophils Abs 0.1 0.0 - 0.4 [facility] x10(3)/[facility] LABORATORY Basophils % 0.5 % [facility] Basophils Abs 0.1 0.0 - 0.1 [facility] x10(3)/[facility] LABORATORY Immature Gran % 4.60 % [facility] Comment: Immature granulocytes(IG's)percentage an d absolute count will include metamyelocytes, myelocytes, and promyelo cytes. Blood smears from CBCs yielding IG's will be scanned manually for concor dance. If this scan disagrees with the automated IG or if promyelocytes are not ed, a manual differential will be performed. Beba Gran Abs 0.73 (H) 0.00 - 0.04 x10(3)/[facility] LABORATORY Specimen Anatomical Collection Method Collection Time Receive d Time (Source) Location / / Volume Laterality Blood 07/07/2021 6:14 AM 6:53 EDT AM EDT Resulting Agency Comment Spec In Lab Benita Leblanc MD HEMATOLOGY ORDERABLES Performing Organization Address City/State/[place] [address] (ABNORMAL) Hemogram (07/07/2021 6:14 AM EDT) Analysis Performed At Patho logist Time Signature WBC 15.9 (H) 4.0 - 9.5 [facility] x10(3)/[facility] LABORATORY RBC 4.37 (L) 4.58 - [facility] 5.54 [facility] x10(6)/[facility] LABORATORY Hemoglobin 13.2 (L) 13.7 - [facility] 16.5 g/dL [facility]ORY Hematocrit 38.6 (L) 40.5 - [facility] 48.5 % [facility] LABORATORY MCV 88.3 82.9 - [place] 93.1 [facility] LABORATORY MCH 30.2 27.5 - [place] 32.1 pg [facility] LABORATORY MCHC 34.2 32.0 - [place] 35.7 g/dL [facility] LAB[facility]ATORY Platelets 358 (H) 145 - 357 [facility] x10(3)/[facility] LABORATORY RDWSD 40.8 36.0 - [place] 45.0 [facility] LABORATORY RDWCV 12.7 11.4 - [place] 13.8 % [facility] LABORATORY MPV 10.1 7.6 - 12.9 [place] T[place] [facility] LABORATORY nRBC % Auto 0.0 % [facility] LABORATORY nRBC Abs Auto 0.000 0.000 - [place] 0.000 [facility] x10(3)/[facility] LABORATORY Specimen Anatomical Collection Method Collection Time Receive d Time (Source) Location / / Volume Laterality Blood 07/07/2021 6:14 AM 2 6:53 EDT AM EDT Resulting Agency Comment Spec In Lab Benita Leblanc MD HEMATOLOGY ORDERABLES Performing Organization Address City/State/ZIP Code Phon e Number [address] Phosphorus (07/07/2021 6:14 AM EDT) P athologist Signature Phosphorus 3.0 2.5 - 4.5 [place] mg/dL [facility] LAB[facility]ORY Specimen Anatomical Collection Method Collection Time Receive d Time (Source) Location / / Volume Laterality Blood 07/07/2021 6:14 AM 2 6:54 EDT AM EDT Resulting Agency Comment Spec In Lab Benita Leblanc MD CHEMISTRY ORDERABLES Performing Organization Address City/[facility]/ZIP Code Phon e Number [address] Magnesium (07/07/2021 6:14 AM EDT) P athologist Signature Magnesium 0.87 0.69 - 1.07 [place] mmol/L [facility] LABORATORY Specimen Anatomical Collection Method Collection Time Receive d Time (Source) Location / / Volume Laterality Blood 07/07/2021 6:14 AM 2 6:54 EDT AM EDT Resulting Agency Comment Spec In Lab Benita Leblanc MD CHEMISTRY ORDERABLES Performing Organization Address City/State/ZIP Code Phon e Number [facility] [place] [address] (ABNORMAL) Basic Metabolic Panel (non-fasting) (07/07/2021 6:14 AM EDT) athologist Signature Glucose Lvl 99 65 - 199 [facility] mg/dL [facility] Comment: Diabetes: >=200 mg/dL plus symp toms BUN 24 (H) 10 - 20 mg/dL [facility] LABORATORY Creatinine 0.84 0.80 - 1.50 mg/dL [facility] LABORATORY Sodium 130 (L) 135 - 145 mmol/L [facility] LABOR[facility]ORY Potassium 4.8 3.5 - 5.0 mmol/L [facility] Comment: Please note: ??Patients with WBC >100,00 0 may have falsely elevated Potassium levels. ??For accurate Potassium quantif ication in these patients send serum separator tube (gold top) for subsequent determinations. ??Contact the Clinical Chemistry Laboratory if there are any qu estions. Chloride 97 (L) 98 - 107 mmol/L [facility] CO2 24 22 - 31 mmol/L [facility] Anion Gap 9 5 - 15 mmol/L [facility]ORY Calcium 8.4 (L) 8.5 - 10.5 mg/dL [facility]OR[facility]ORY Estimated GFR 86 >=60 mL/min/1.73 m?? [facility] Comment: This patient? s estimated glomerular filtration rate (eGFR) is between 86 mL/min/1.73 m2 (patients with less muscl e mass per kg body weight) and 100 mL/min/1.73 m2 (patients with more muscl e [...] (Source) Location / / Volume Laterality Blood 07/07/2021 6:14 AM 2 6:54 EDT AM EDT Resulting Agency Comment Spec In Lab Benita Leblanc MD CHEMISTRY ORDERABLES Performing Organization Address City/State/[place] [address] (ABNORMAL) Basic Metabolic Panel (non-fasting) (07/06/2021 6:27 PM EDT) P athologist Signature Glucose Lvl 120 65 - 199 [facility] mg/dL [facility] Comment: Diabetes: >=200 mg/dL plus symp toms BUN 29 (H) 10 - 20 mg/dL [facility] Creatinine 0.92 0.80 - 1.50 mg/dL [facility] Sodium 133 (L) 135 - 145 mmol/L [facility] Potassium 4.7 3.5 - 5.0 mmol/L [facility] Comment: Please note: ??Patients with WBC >100,00 0 may have falsely elevated Potassium levels. ??For accurate Potassium quantif ication in these patients send serum separator tube (gold top) for subsequent determinations. ??Contact the Clinical Chemistry Laboratory if there are any qu estions. Chloride 96 (L) 98 - 107 mmol/L [facility] CO2 25 22 - 31 mmol/L [facility] Anion Gap 12 5 - 15 mmol/L [facility] Calcium 8.7 8.5 - 10.5 mg/dL [facility] Estimated GFR 82 >=60 mL/min/1.73 m?? [facility] Comment: This patient? s estimated glomerular filtration rate (eGFR) is between 82 mL/min/1.73 m2 (patients with less muscl e mass per kg body weight) and 95 mL/min/1.73 m2 (patients with more muscl e [...] (Source) Location / / Volume Laterality Blood 07/06/2021 6:27 PM 6:36 EDT PM EDT Resulting Agency Comment Spec In Lab Benita Leblanc MD CHEMISTRY ORDERABLES Performing Organization Address City/State/[place] [address] (ABNORMAL) Differential, Automated (07/06/2021 6:23 AM EDT) [facility] gist Method Time Signature Neutrophils % 67.6 % [facility] Neutr Abs (ANC) 10.25 (H) 1.70 - [facility] 6.10 [facility] x10(3)/[facility] LABORATORY Lymphocytes % 18.7 % [facility] LABOR[facility]ORY Lymphocytes Abs 2.8 0.9 - 3.2 [facility] x10(3)/[facility] LABORATORY Monocytes % 7.9 % [facility]ORY Monocyte Abs 1.2 (H) 0.3 - 0.9 [facility] x10(3)/[facility] LABORATORY Eosinophils % 0.9 % [facility] Eosinophils Abs 0.1 0.0 - 0.4 [facility] x10(3)/[facility] LABORATORY Basophils % 0.7 % [facility]ORY Basophils Abs 0.1 0.0 - 0.1 [facility] x10(3)/[facility] LABORATORY Immature Gran % 4.20 % [facility] Comment: Immature granulocytes(IG's)percentage an d absolute count will include metamyelocytes, myelocytes, and promyelo cytes. Blood smears from CBCs yielding IG's will be scanned manually for conccliff danrussell. If this scan disagrees with the automated IG or if promyelocytes are not ed, a manual differential will be performed. Beba Gran Abs 0.64 (H) 0.00 - 0.04 x10(3)/[facility] LABORATORY Specimen Anatomical Collection Method Collection Time Receive d Time (Source) Location / / Volume Laterality Blood 07/06/2021 6:23 AM 6:55 EDT AM EDT Resulting Agency Comment Spec In Lab Benita Leblanc MD HEMATOLOGY ORDERABLES Performing Organization Address City/State/[place] [address] (ABNORMAL) Hemogram (07/06/2021 6:23 AM EDT) Analysis Performed At Patho logist Time Signature WBC 15.2 (H) 4.0 - 9.5 [facility] x10(3)/[facility] LABORATORY RBC 4.58 4.58 - [facility] 5.54 [facility] [facility] x10(6)/[facility] LABORATORY Hemoglobin 13.6 (L) 13.7 - [facility] g/dL [facility] LABORATORY Hematocrit 40.4 (L) 40.5 - [facility] 48.5 % [facility] LABORATORY MCV 88.2 82.9 - [facility] 93.1 [facility] LABORATORY MCH 29.7 27.5 - [facility] [place] 32.1 pg [facility] LABORATORY MCHC 33.7 32.0 - [facility] [place] 35.7 g/dL [facility] LABORATORY Platelets 369 (H) 145 - 357 [facility] LABORATORY RDWSD 40.1 36.0 - [facility] [place] 45.0 [facility] LABORATORY RDWCV 12.4 11.4 - [facility] [place] 13.8 % [facility] LABORATORY MPV 10.1 7.6 - 12.9 [facility] LABORATORY nRBC % Auto 0.0 % [facility] LABORATORY nRBC Abs Auto 0.000 0.000 - [facility] 0.000 [facility] x10(3)/[facility] LABORATORY Specimen Anatomical Collection Method Collection Time Receive d Time (Source) Location / / Volume Laterality Blood 07/06/2021 6:23 AM 2 6:55 EDT AM EDT Resulting Agency Comment Spec In Lab Benita Leblanc MD HEMATOLOGY ORDERABLES Performing Organization Address City/State/ZIP Code Phon e Number [address] Phosphorus (07/06/2021 6:23 AM EDT) athologist Signature Phosphorus 3.3 2.5 - 4.5 [facility] mg/dL [facility] LABORATORY Specimen Anatomical Collection Method Collection Time Receive d Time (Source) Location / / Volume Laterality Blood 07/06/2021 6:23 AM 2 6:55 EDT AM EDT Resulting Agency Comment Spec In Lab Benita Leblanc MD CHEMISTRY ORDERABLES Performing Organization Address City/[facility]/ZIP Code Phon e Number [address] Magnesium (07/06/2021 6:23 AM EDT) athologist Signature Magnesium 0.93 0.69 - 1.07 [facility] mmol/L [facility] LABORATORY Specimen Anatomical Collection Method Collection Time Receive d Time (Source) Location / / Volume Laterality Blood 07/06/2021 6:23 AM 2 6:55 EDT AM EDT Resulting Agency Comment Spec In Lab Benita Leblanc MD CHEMISTRY ORDERABLES Performing Organization Address City/State/[place] [address] (ABNORMAL) Basic Metabolic Panel (non-fasting) (07/06/2021 6:23 AM EDT) athologist Signature Glucose Lvl 99 65 - 199 [facility] mg/dL [facility] LABORATORY Comment: Diabetes: >=200 mg/dL plus symp toms BUN 24 (H) 10 - 20 mg/dL [facility] LABORATORY Creatinine 0.92 0.80 - 1.50 mg/dL [facility] LABORATORY Sodium 131 (L) 135 - 145 mmol/L [facility] LABORATORY Potassium 4.6 3.5 - 5.0 mmol/L [facility] LABORATORY Comment: Please note: ??Patients with WBC >100,00 0 may have falsely elevated Potassium levels. ??For accurate Potassium quantif ication in these patients send serum separator tube (gold top) for subsequent determinations. ??Contact the Clinical Chemistry Laboratory if there are any qu estions. Chloride 94 (L) 98 - 107 mmol/L [facility] LABORATORY CO2 24 22 - 31 mmol/L [facility] LABORATORY Anion Gap 13 5 - 15 mmol/L [facility] LABORATORY Calcium 8.6 8.5 - 10.5 mg/dL [facility] LABORATORY Estimated GFR 82 >=60 mL/min/1.73 m?? [facility] LABORATORY Comment: This patient? s estimated glomerular filtration rate (eGFR) is between 82 mL/min/1.73 m2 (patients with less muscl e mass per kg body weight) and 95 mL/min/1.73 m2 (patients with more muscl e [...] (Source) Location / / Volume Laterality Blood 07/06/2021 6:23 AM 6:55 EDT AM EDT Resulting Agency Comment Spec In Lab Benita Leblanc MD CHEMISTRY ORDERABLES Performing Organization Address City/State/[place] [address] (ABNORMAL) Basic Metabolic Panel (non-fasting) (07/05/2021 6:41 PM EDT) P athologist Signature Glucose Lvl 133 65 - 199 [facility] mg/dL [facility] LABORATORY Comment: Diabetes: >=200 mg/dL plus symp toms BUN 23 (H) 10 - 20 mg/dL [facility] LABORATORY Creatinine 0.94 0.80 - 1.50 mg/dL [facility] LABORATORY Sodium 131 (L) 135 - 145 mmol/L [facility] LABORATORY Potassium 4.5 3.5 - 5.0 mmol/L [facility] LABORATORY Comment: Please note: ??Patients with WBC >100,00 0 may have falsely elevated Potassium levels. ??For accurate Potassium quantif ication in these patients send serum separator tube (gold top) for subsequent determinations. ??Contact the Clinical Chemistry Laboratory if there are any qu estions. Chloride 97 (L) 98 - 107 mmol/L [facility] LABORATORY CO2 22 22 - 31 mmol/L [facility] LABORATORY Anion Gap 12 5 - 15 mmol/L [facility] LABORATORY Calcium 8.3 (L) 8.5 - 10.5 mg/dL [facility] LABORATORY Estimated GFR 80 >=60 mL/min/1.73 m?? [facility] LABORATORY Comment: This patient? s estimated glomerular filtration rate (eGFR) is between 80 mL/min/1.73 m2 (patients with less muscl e mass per kg body weight) and 92 mL/min/1.73 m2 (patients with more muscl e [...] (Source) Location / / Volume Laterality Blood 07/05/2021 6:41 PM 6:49 EDT PM EDT Resulting Agency Comment Spec In Lab Benita Leblanc MD CHEMISTRY ORDERABLES Performing Organization Address City/State/ZIP [place] [address] COVID-19 PCR (07/05/2021 1:22 PM EDT) [employer] Method Time Signature SARS-CoV-2 Not Detected Not Detected [place] RNA PCR [facility] LABORATORY [...] using the Simplexa COVID-19 Direct Assay by Spinal USAlary Edicy as authorized by the FDA issued Emergency [...] Department of Pathology and Laboratory Medicine at [facility], certified under the Clinical Laboratory Improvement Amendmen [...] clinical management guidance information are available at [facility] CDC Coronavirus Disease 2019 (COVID-19) webpage under Information fo r Healthcare Professionals (https://www.cdc.gov/coronavirus/2019-nc ov/hcp/index.html). Additional information about this and ot her EUA tests can be found in provider and patient fact sheets at the following FDA website: https://www.fda.gov/medical-devices/wyxjvhimzzn-zixeulm-5085-dzdbz-96-fqxunwgkw- iaw-ezbeddvntosafl-zxojbsz-devices/brqdw-gxaulibwvux-evbr SARS-CoV-2 Source SPACE TECHNOLOGIST Swab [facility] LABORATORY Specimen (Source) Anatomical Collection Method Collection Time Re ceived Time Location / / Volume Laterality Nasopharyngeal Swab 07/05/2021 1:22 07/05 PM EDT 2:27 PM EDT Comment: Symptoms->Surveillance Resulting Agency Comment Spec In Lab Benita Leblanc MD MICROBIOLOGY - GENERAL ORDER CHENG Performing Organization Address City/[facility]/ZIP Code Phon e Number [address] POCT Glucose (07/05/2021 7:27 AM EDT) P athologist Signature POC Glucose 106 65 - 199 [facility] mg/dL [facility] LABORATORY Comment: Supplemental ranges: <140 mg/dL before meals <180 mg/dL all other times of the day Specimen Anatomical Collection Method Collection Time Receive d Time (Source) Location / / Volume Laterality Blood 07/05/2021 7:27 AM 7:27 EDT AM EDT Benita Leblanc MD POINT OF CARE TEST ORDERABLE S Performing Organization Address City/State/ZIP Code Phon e Number [address] (ABNORMAL) Differential, Automated (07/05/2021 6:00 AM EDT) [facility] Method Time Signature Neutrophils % 75.8 % [facility] LABORATORY Neutr Abs (ANC) 10.55 (H) 1.70 - [facility] 6.10 [facility] x10(3)/[facility] L LABORATORY Lymphocytes % 15.2 % [facility] LABORATORY Lymphocytes Abs 2.1 0.9 - 3.2 [facility] x10(3)/[facility] LABORATORY Monocytes % 6.1 % [facility] LABORATORY Monocyte Abs 0.8 0.3 - 0.9 [facility] x10(3)/[facility] LABORATORY Eosinophils % 0.2 % [facility] LABORATORY Eosinophils Abs 0.0 0.0 - 0.4 [facility] x10(3)/[facility] LABORATORY Basophils % 0.3 % [facility] LABORATORY Basophils Abs 0.0 0.0 - 0.1 [facility] x10(3)/[facility] LABORATORY Immature Gran % 2.40 % [facility] LABORATORY Comment: Immature granulocytes(IG's)percentage an d absolute count will include metamyelocytes, myelocytes, and promyelo cytes. Blood smears from CBCs yielding IG's will be scanned manually for concor dance. If this scan disagrees with the automated IG or if promyelocytes are not ed, a manual differential will be performed. Beba Gran Abs 0.34 (H) 0.00 - 0.04 x10(3)/[facility] LABORATORY Specimen Anatomical Collection Method Collection Time Receive d Time (Source) Location / / Volume Laterality Blood 07/05/2021 6:00 AM 6:28 EDT AM EDT Resulting Agency Comment Spec In Lab Benita Leblanc MD HEMATOLOGY ORDERABLES Performing Organization Address City/State/[place] [address] (ABNORMAL) Hemogram (07/05/2021 6:00 AM EDT) Analysis Performed At Patho logist Time Signature WBC 13.9 (H) 4.0 - 9.5 [facility] x10(3)/[facility] LABORATORY RBC 4.44 (L) 4.58 - [facility] 5.54 [facility] x10(6)/[facility] LABORATORY Hemoglobin 13.1 (L) 13.7 - [facility] 16.5 g/dL [facility] LABORATORY Hematocrit 38.3 (L) 40.5 - [place] 48.5 % [facility] LABORATORY MCV 86.3 82.9 - [place] 93.1 [facility] LABORATORY MCH 29.5 27.5 - [place] 32.1 pg [facility] LABORATORY MCHC 34.2 32.0 - [place] 35.7 g/dL [facility] LABORATORY Platelets 344 145 - 357 [facility] LABORATORY RDWSD 38.4 36.0 - [place] 45.0 [facility] LABORATORY RDWCV 12.2 11.4 - [place] 13.8 % [facility] LABORATORY MPV 10.2 7.6 - 12.9 [place] TAMAYO [facility] LABORATORY nRBC % Auto 0.0 % [facility] LABORATORY nRBC Abs Auto 0.000 0.000 - [place] 0.000 [facility] x10(3)/[facility] LABORATORY Specimen Anatomical Collection Method Collection Time Receive d Time (Source) Location / / Volume Laterality Blood 07/05/2021 6:00 AM 2 6:28 EDT AM EDT Resulting Agency Comment Spec In Lab Benita Leblanc MD HEMATOLOGY ORDERABLES Performing Organization Address City/State/ZIP Code Phon e Number [address] Phosphorus (07/05/2021 6:00 AM EDT) P athologist Signature Phosphorus 3.3 2.5 - 4.5 [place] mg/dL [facility] LABORATORY Specimen Anatomical Collection Method Collection Time Receive d Time (Source) Location / / Volume Laterality Blood 07/05/2021 6:00 AM 2 6:28 EDT AM EDT Resulting Agency Comment Spec In Lab Benita Leblanc MD CHEMISTRY ORDERABLES Performing Organization Address City/[facility]/ZIP Code Phon e Number [address] Magnesium (07/05/2021 6:00 AM EDT) P athologist Signature Magnesium 0.89 0.69 - 1.07 [place] mmol/L [facility] LABORATORY Specimen Anatomical Collection Method Collection Time Receive d Time (Source) Location / / Volume Laterality Blood 07/05/2021 6:00 AM 6:28 EDT AM EDT Resulting Agency Comment Spec In Lab Benita Leblanc MD CHEMISTRY ORDERABLES Performing Organization Address City/State/[place] [address] (ABNORMAL) Basic Metabolic Panel (non-fasting) (07/05/2021 6:00 AM EDT) P athologist Signature Glucose Lvl 114 65 - 199 [facility] mg/dL [facility] LABORATORY Comment: Diabetes: >=200 mg/dL plus symp toms BUN 24 (H) 10 - 20 mg/dL [facility] LABORATORY Creatinine 0.76 (L) 0.80 - 1.50 mg/dL [facility] LABORATORY Sodium 130 (L) 135 - 145 mmol/L [facility] LABORATORY Potassium 4.7 3.5 - 5.0 mmol/L [facility] LABORATORY Comment: Please note: ??Patients with WBC >100,00 0 may have falsely elevated Potassium levels. ??For accurate Potassium quantif ication in these patients send serum separator tube (gold top) for subsequent determinations. ??Contact the Clinical Chemistry Laboratory if there are any qu estions. Chloride 96 (L) 98 - 107 mmol/L [facility] LABORATORY CO2 23 22 - 31 mmol/L [facility] LABORATORY Anion Gap 11 5 - 15 mmol/L [facility] LABORATORY Calcium 8.5 8.5 - 10.5 mg/dL [facility] LABORATORY Estimated GFR 90 >=60 mL/min/1.73 m?? [facility] LABORATORY Comment: This patient? s estimated [...] (Source) Location / / Volume Laterality Blood 07/05/2021 6:00 AM 2 6:28 EDT AM EDT Resulting Agency Comment Spec In Lab Benita Leblanc MD CHEMISTRY ORDERABLES Performing Organization Address City/State/ZIP Code Phon e Number [address] POCT Glucose (07/05/2021 3:56 AM EDT) athologist Signature POC Glucose 130 65 - 199 [place] mg/dL [facility] LABORATORY Comment: Supplemental ranges: <140 mg/dL before meals <180 mg/dL all other times of the day Specimen Anatomical Collection Method Collection Time Receive d Time (Source) Location / / Volume Laterality Blood 07/05/2021 3:56 AM 2 3:56 EDT AM EDT Benita Leblanc MD POINT OF CARE TEST ORDERABLE S Performing Organization Address City/[facility]/ZIP Code Phon e Number [address] POCT Glucose (07/04/2021 11:44 PM EDT) athologist Signature POC Glucose 139 65 - 199 [facility] [place] mg/dL [facility] LABORATORY Comment: Supplemental ranges: <140 mg/dL before meals <180 mg/dL all other times of the day Specimen Anatomical Collection Method Collection Time Receive d Time (Source) Location / / Volume Laterality Blood 07/04/2021 11:44 07/04/2021 PM EDT 11:44 PM EDT Benita Leblanc MD POINT OF CARE TEST ORDERABLE S Performing Organization Address City/State/ZIP Code Phon e Number [address] POCT Glucose (07/04/2021 7:31 PM EDT) athologist Signature POC Glucose 141 65 - 199 [facility] mg/dL [facility] LABORATORY Comment: Supplemental ranges: <140 mg/dL before meals <180 mg/dL all other times of the day Specimen Anatomical Collection Method Collection Time Receive d Time (Source) Location / / Volume Laterality Blood 07/04/2021 7:31 PM 2 7:31 EDT PM EDT Benita Leblanc MD POINT OF CARE TEST ORDERABLE S Performing Organization Address City/State/ZIP Code Phon e Number [address] POCT Glucose (07/04/2021 4:44 PM EDT) athologist Signature POC Glucose 121 65 - 199 [facility]/dL [facility] LABORATORY Comment: Supplemental ranges: <140 mg/dL before meals <180 mg/dL all other times of the day Specimen Anatomical Collection Method Collection Time Receive d Time (Source) Location / / Volume Laterality Blood 07/04/2021 4:44 PM 2 4:44 EDT PM EDT Benita Leblanc MD POINT OF CARE TEST ORDERABLE S Performing Organization Address City/State/[place] [address] (ABNORMAL) Basic Metabolic Panel (non-fasting) (07/04/2021 12:58 PM EDT) athologist Signature Glucose Lvl 144 65 - 199 [facility] LABORATORY Comment: Diabetes: >=200 mg/dL plus symp toms BUN 25 (H) 10 - 20 mg/dL [facility] LABORATORY Creatinine 1.08 0.80 - 1.50 mg/dL [facility] LABORATORY Sodium 136 135 - 145 mmol/L [facility] LABORATORY Potassium 4.6 3.5 - 5.0 mmol/L [facility] LABORATORY Comment: Please note: ??Patients with WBC >100,00 0 may have falsely elevated Potassium levels. ??For accurate Potassium quantif ication in these patients send serum separator tube (gold top) for subsequent determinations. ??Contact the Clinical Chemistry Laboratory if there are any qu estions. Chloride 98 98 - 107 mmol/L [facility] LABORATORY CO2 26 22 - 31 mmol/L [facility] LABORATORY Anion Gap 12 5 - 15 mmol/L [facility] LABORATORY Calcium 8.9 8.5 - 10.5 mg/dL [facility] LABORATORY Estimated GFR 67 >=60 mL/min/1.73 m?? [facility] LABORATORY Comment: This patient? s estimated glomerular filtration rate (eGFR) is between 67 mL/min/1.73 m2 (patients with less muscl e mass per kg body weight) and 78 mL/min/1.73 m2 (patients with more muscl e [...] (Source) Location / / Volume Laterality Blood 07/04/2021 12:58 07/04/2021 1:34 PM EDT PM EDT Resulting Agency Comment Spec In Lab Benita Leblanc MD CHEMISTRY ORDERABLES Performing Organization Address City/State/[place] [address] POCT Glucose (07/04/2021 11:47 AM EDT) P athologist Signature POC Glucose 121 65 - 199 [facility] mg/dL [facility] LABORATORY Comment: Supplemental ranges: <140 mg/dL before meals <180 mg/dL all other times of the day Specimen Anatomical Collection Method Collection Time Receive d Time (Source) Location / / Volume Laterality Blood 07/04/2021 11:47 07/04/2021 AM EDT 11:47 AM EDT Benita Leblanc MD POINT OF CARE TEST ORDERABLE S Performing Organization Address City/State/[place] [address] [facility] [address] POCT Glucose (07/04/2021 7:39 AM EDT) P athologist Signature POC Glucose 101 65 - 199 [facility] LABORATORY Comment: Supplemental ranges: <140 mg/dL before meals <180 mg/dL all other times of the day Specimen Anatomical Collection Method Collection Time Receive d Time (Source) Location / / Volume Laterality Blood 07/04/2021 7:39 AM 7:39 EDT AM EDT Benita Leblanc MD POINT OF CARE TEST ORDERABLE S Performing Organization Address City/State/ZIP Code Phon e Number [address] (ABNORMAL) Differential, Automated (07/04/2021 6:28 AM EDT) Patholo gist Method Time Signature Neutrophils % 75.3 % [facility] LABORATORY Neutr Abs (ANC) 9.56 (H) 1.70 - [facility] 6.10 [facility] x10(3)/[facility] LABORATORY Lymphocytes % 16.5 % [facility] LABORATORY Lymphocytes Abs 2.1 0.9 - 3.2 [facility] x10(3)/[facility] LABORATORY Monocytes % 6.2 % [facility] LABORATORY Monocyte Abs 0.8 0.3 - 0.9 [facility] x10(3)/[facility] LABORATORY Eosinophils % 0.1 % [facility] LABORATORY Eosinophils Abs 0.0 0.0 - 0.4 [facility] x10(3)/[facility] LABORATORY Basophils % 0.2 % [facility] LABORATORY Basophils Abs 0.0 0.0 - 0.1 [facility] x10(3)/[facility] LABORATORY Immature Gran % 1.70 % [facility] LABORATORY Comment: Immature granulocytes(IG's)percentage an d absolute count will include metamyelocytes, myelocytes, and promyelo cytes. Blood smears from CBCs yielding IG's will be scanned manually for conccliff richey. If this scan disagrees with the automated IG or if promyelocytes are not ed, a manual differential will be performed. Beba Gran Abs 0.21 (H) 0.00 - 0.04 x10(3)/[facility] LABORATORY Specimen Anatomical Collection Method Collection Time Receive d Time (Source) Location / / Volume Laterality Blood 07/04/2021 6:28 AM 6:52 EDT AM EDT Resulting Agency Comment Spec In Lab Benita Leblanc MD HEMATOLOGY ORDERABLES Performing Organization Address City/State/[place] [address] (ABNORMAL) Hemogram (07/04/2021 6:28 AM EDT) Analysis Performed At Patho logist Time Signature WBC 12.7 (H) 4.0 - 9.5 [facility] x10(3)/[facility] LABORATORY RBC 4.45 (L) 4.58 - [facility] 5.54 [facility] x10(6)/[facility] LABORATORY Hemoglobin 13.5 (L) 13.7 - [facility] 16.5 g/dL [facility] LABORATORY Hematocrit 39.4 (L) 40.5 - [facility] 48.5 % [facility] LABORATORY MCV 88.5 82.9 - [facility] 93.1 [facility] LABORATORY MCH 30.3 27.5 - [facility] 32.1 pg [facility] LABORATORY MCHC 34.3 32.0 - [facility] 35.7 g/dL [facility] LABORATORY Platelets 335 145 - 357 [facility] x10(3)/[facility] LABORATORY RDWSD 39.9 36.0 - [facility] [place] 45.0 [facility] LABORATORY RDWCV 12.3 11.4 - [facility] 13.8 % [facility] LABORATORY MPV 10.2 7.6 - 12.9 [facility] LABORATORY nRBC % Auto 0.0 % [facility] LABORATORY nRBC Abs Auto 0.000 0.000 - [facility] 0.000 [facility] x10(3)/[facility] LABORATORY Specimen Anatomical Collection Method Collection Time Receive d Time (Source) Location / / Volume Laterality Blood 07/04/2021 6:28 AM 2 6:52 EDT AM EDT Resulting Agency Comment Spec In Lab Benita Leblanc MD HEMATOLOGY ORDERABLES Performing Organization Address City/State/ZIP Code Phon e Number [address] Phosphorus (07/04/2021 6:28 AM EDT) athologist Signature Phosphorus 3.3 2.5 - 4.5 [facility] mg/dL [facility] LABORATORY Specimen Anatomical Collection Method Collection Time Receive d Time (Source) Location / / Volume Laterality Blood 07/04/2021 6:28 AM 2 6:52 EDT AM EDT Resulting Agency Comment Spec In Lab Benita Leblanc MD CHEMISTRY ORDERABLES Performing Organization Address City/[facility]/[place] [address] Magnesium (07/04/2021 6:28 AM EDT) athologist Signature Magnesium 0.92 0.69 - 1.07 [facility] mmol/L [facility] LABOR[facility] Specimen Anatomical Collection Method Collection Time Receive d Time (Source) Location / / Volume Laterality Blood 07/04/2021 6:28 AM 2 6:52 EDT AM EDT Resulting Agency Comment Spec In Lab Benita Leblanc MD CHEMISTRY ORDERABLES Performing Organization Address City/[facility]/[place] [address] (ABNORMAL) Basic Metabolic Panel (non-fasting) (07/04/2021 6:28 AM EDT) P athologist Signature Glucose Lvl 118 65 - 199 [facility] mg/dL [facility] Comment: Diabetes: >=200 mg/dL plus symp toms BUN 22 (H) 10 - 20 mg/dL [facility] Creatinine 0.85 0.80 - 1.50 mg/dL [facility] Sodium 135 135 - 145 mmol/L [facility] Potassium 5.0 3.5 - 5.0 mmol/L [facility] Comment: Please note: ??Patients with WBC >100,00 0 may have falsely elevated Potassium levels. ??For accurate Potassium quantif ication in these patients send serum separator tube (gold top) for subsequent determinations. ??Contact the Clinical Chemistry Laboratory if there are any qu estions. Chloride 99 98 - 107 mmol/L [facility] CO2 24 22 - 31 mmol/L [facility] Anion Gap 12 5 - 15 mmol/L [facility] Calcium 8.8 8.5 - 10.5 mg/dL [facility] Estimated GFR 86 >=60 mL/min/1.73 m?? [facility] Comment: This patient? s estimated [...] (Source) Location / / Volume Laterality Blood 07/04/2021 6:28 AM 2 6:52 EDT AM EDT Resulting Agency Comment Spec In Lab Benita Leblanc MD CHEMISTRY ORDERABLES Performing Organization Address City/State/[place] [address] POCT Glucose (07/04/2021 4:19 AM EDT) P athologist Signature POC Glucose 123 65 - 199 [facility] mg/dL [facility] Comment: Supplemental ranges: <140 mg/dL before meals <180 mg/dL all other times of the day Specimen Anatomical Collection Method Collection Time Receive d Time (Source) Location / / Volume Laterality Blood 07/04/2021 4:19 AM 2 4:19 EDT AM EDT Benita Leblanc MD POINT OF CARE TEST ORDERABLE S Performing Organization Address City/State/ZIP Code Phon e Number [address] POCT Glucose (07/03/2021 11:52 PM EDT) athologist Signature POC Glucose 128 65 - 199 [facility] Comment: Supplemental ranges: <140 mg/dL before meals <180 mg/dL all other times of the day Specimen Anatomical Collection Method Collection Time Receive d Time (Source) Location / / Volume Laterality Blood 07/03/2021 11:52 07/03/2021 PM EDT 11:52 PM EDT Benita Leblanc MD POINT OF CARE TEST ORDERABLE S Performing Organization Address City/State/ZIP Code Phon e Number [address] POCT Glucose (07/03/2021 8:33 PM EDT) athologist Signature POC Glucose 138 65 - 199 [facility] mg/dL [facility] Comment: Supplemental ranges: <140 mg/dL before meals <180 mg/dL all other times of the day Specimen Anatomical Collection Method Collection Time Receive d Time (Source) Location / / Volume Laterality Blood 07/03/2021 8:33 PM 2 8:33 EDT PM EDT Benita Leblanc MD POINT OF CARE TEST ORDERABLE S Performing Organization Address City/State/ZIP Code Phon e Number [address] Osmolality, urine, random (07/03/2021 4:17 PM EDT) athologist Signature U Osmolality 1,039 50 - 1,200 [facility] mOsm/kg [facility] Specimen Anatomical Collection Method Collection Time Receive d Time (Source) Location / / Volume Laterality Urine 07/03/2021 4:17 PM 2 4:29 EDT PM EDT Resulting Agency Comment Spec In Lab Benita Leblanc MD URINE ORDERABLES Performing Organization Address City/State/[place] [address] Sodium, urine, random (07/03/2021 4:17 PM EDT) athologist Signature U Sodium 98 mmol/L [facility] Specimen Anatomical Collection Method Collection Time Receive d Time (Source) Location / / Volume Laterality Urine 07/03/2021 4:17 PM 2 4:29 EDT PM EDT Resulting Agency Comment Spec In Lab Benita Leblanc MD URINE ORDERABLES Performing Organization Address City/[facility]/[place] [address] POCT Glucose (07/03/2021 3:23 PM EDT) athologist Signature POC Glucose 169 65 - 199 [facility] mg/dL [facility] Comment: Supplemental ranges: <140 mg/dL before meals <180 mg/dL all other times of the day Specimen Anatomical Collection Method Collection Time Receive d Time (Source) Location / / Volume Laterality Blood 07/03/2021 3:23 PM 2 3:23 EDT PM EDT Benita Leblanc MD POINT OF CARE TEST ORDERABLE S Performing Organization Address City/State/[place] [address] (ABNORMAL) Basic Metabolic Panel (non-fasting) (07/03/2021 11:58 AM EDT) athologist Signature Glucose Lvl 108 65 - 199 [facility] Comment: Diabetes: >=200 mg/dL plus symp toms BUN 24 (H) 10 - 20 mg/dL [facility] Creatinine 0.89 0.80 - 1.50 mg/dL [facility] Sodium 134 (L) 135 - 145 mmol/L [facility] Potassium 4.3 3.5 - 5.0 mmol/L [facility] Comment: Please note: ??Patients with WBC >100,00 0 may have falsely elevated Potassium levels. ??For accurate Potassium quantif ication in these patients send serum separator tube (gold top) for subsequent determinations. ??Contact the Clinical Chemistry Laboratory if there are any qu estions. Chloride 98 98 - 107 mmol/L [facility] CO2 25 22 - 31 mmol/L [facility] Anion Gap 11 5 - 15 mmol/L [facility] Calcium 8.5 8.5 - 10.5 mg/dL [facility] Estimated GFR 84 >=60 mL/min/1.73 m?? [facility] Comment: This patient? s estimated glomerular filtration rate (eGFR) is between 84 mL/min/1.73 m2 (patients with less muscl e mass per kg body weight) and 98 mL/min/1.73 m2 (patients with more muscl e [...] (Source) Location / / Volume Laterality Blood 07/03/2021 11:58 07/03/2021 AM EDT 12:55 PM EDT Resulting Agency Comment Spec In Lab Benita Leblanc MD CHEMISTRY ORDERABLES Performing Organization Address City/State/[place] [address] POCT Glucose (07/03/2021 7:35 AM EDT) P athologist Signature POC Glucose 115 65 - 199 [facility] mg/dL [facility] Comment: Supplemental ranges: <140 mg/dL before meals <180 mg/dL all other times of the day Specimen Anatomical Collection Method Collection Time Receive d Time (Source) Location / / Volume Laterality Blood 07/03/2021 7:35 AM 2 7:35 EDT AM EDT Benita Leblanc MD POINT OF CARE TEST ORDERABLE S Performing Organization Address City/State/[place] [address] POCT Glucose (07/03/2021 4:12 AM EDT) P athologist Signature POC Glucose 133 65 - 199 [facility] Comment: Supplemental ranges: <140 mg/dL before meals <180 mg/dL all other times of the day Specimen Anatomical Collection Method Collection Time Receive d Time (Source) Location / / Volume Laterality Blood 07/03/2021 4:12 AM 2 4:12 EDT AM EDT Benita Leblanc MD POINT OF CARE TEST ORDERABLE S Performing Organization Address City/State/[place] [address] (ABNORMAL) Differential, Automated (07/03/2021 12:42 AM EDT) Patholo gist Method Time Signature Neutrophils % 73.0 % [facility] Neutr Abs (ANC) 8.99 (H) 1.70 - [facility] 6.10 [facility] x10(3)/[facility] LABORATORY Lymphocytes % 15.3 % [facility] LABORATORY Lymphocytes Abs 1.9 0.9 - 3.2 [facility] x10(3)/[facility] LABORATORY Monocytes % 10.2 % [facility] LABORATORY Monocyte Abs 1.3 (H) 0.3 - 0.9 [facility] x10(3)/[facility] LABORATORY Eosinophils % 0.6 % [facility] LAB[facility]ORY Eosinophils Abs 0.1 0.0 - 0.4 [facility] x10(3)/[facility] LABORATORY Basophils % 0.1 % [facility] LABORATORY Basophils Abs 0.0 0.0 - 0.1 [facility] x[facility](3[facility] LABORATORY Immature Gran % 0.80 % [facility] Comment: Immature granulocytes(IG's)percentage an d absolute count will include metamyelocytes, myelocytes, and promyelo cytes. Blood smears from CBCs yielding IG's will be scanned manually for concor dance. If this scan disagrees with the automated IG or if promyelocytes are not ed, a manual differential will be performed. Beba Gran Abs 0.10 (H) 0.00 - 0.04 x10(3)/[facility] LABORATORY Specimen Anatomical Collection Method Collection Time Receive d Time (Source) Location / / Volume Laterality Blood 07/03/2021 12:42 07/03/2021 1:05 AM EDT AM EDT Resulting Agency Comment Spec In Lab Benita Leblanc MD HEMATOLOGY ORDERABLES Performing Organization Address City/State/[place] [address] (ABNORMAL) Hemogram (07/03/2021 12:42 AM EDT) Analysis Performed At Patho logist Time Signature WBC 12.3 (H) 4.0 - 9.5 [facility] x10(3)/[facility] LABORATORY RBC 4.22 (L) 4.58 - [facility] 5.54 [facility] x10(6)/[facility] LABORATORY Hemoglobin 12.7 (L) 13.7 - [facility] 16.5 g/dL [facility] LABORATORY Hematocrit 37.7 (L) 40.5 - [facility] [place] 48.5 % [facility] LABORATORY MCV 89.3 82.9 - [facility] 93.1 [facility] LABORATORY MCH 30.1 27.5 - [facility] [place] 32.1 pg [facility] LABORATORY MCHC 33.7 32.0 - [facility] 35.7 g/dL [facility] Platelets 292 145 - 357 [facility] x10(3)/[facility] LABORATORY RDWSD 40.2 36.0 - [facility] [place] 45.0 [facility] RDWCV 12.4 11.4 - [facility] [place] 13.8 % [facility] LABORATORY MPV 10.4 7.6 - 12.9 [facility] LABORATORY nRBC % Auto 0.0 % [facility] LABORATORY nRBC Abs Auto 0.000 0.000 - [facility] 0.000 [facility] x10(3)/[facility] LABORATORY Specimen Anatomical Collection Method Collection Time Receive d Time (Source) Location / / Volume Laterality Blood 07/03/2021 12:42 07/03/2021 1:05 AM EDT AM EDT Resulting Agency Comment Spec In Lab Benita Leblanc MD HEMATOLOGY ORDERABLES Performing Organization Address City/State/ZIP Code Phon e Number [address] Magnesium (07/03/2021 12:42 AM EDT) athologist Signature Magnesium 0.87 0.69 - 1.07 [facility] mmol/L [facility] LABORATORY Specimen Anatomical Collection Method Collection Time Receive d Time (Source) Location / / Volume Laterality Blood 07/03/2021 12:42 07/03/2021 1:05 AM EDT AM EDT Resulting Agency Comment Spec In Lab Benita Leblanc MD CHEMISTRY ORDERABLES Performing Organization Address City/[facility]/ZIP Code Phon e Number [address] (ABNORMAL) Basic Metabolic Panel (non-fasting) (07/03/2021 12:42 AM EDT) P athologist Signature Glucose Lvl 120 65 - 199 [facility] mg/dL [facility] Comment: Diabetes: >=200 mg/dL plus symp toms BUN 23 (H) 10 - 20 mg/dL [facility] LABORATORY Creatinine 0.83 0.80 - 1.50 mg/dL [facility] LABORATORY Sodium 132 (L) 135 - 145 mmol/L [facility] LABORATORY Potassium 4.0 3.5 - 5.0 mmol/L [facility] Comment: Please note: ??Patients with WBC >100,00 0 may have falsely elevated Potassium levels. ??For accurate Potassium quantif ication in these patients send serum separator tube (gold top) for subsequent determinations. ??Contact the Clinical Chemistry Laboratory if there are any qu estions. Chloride 98 98 - 107 mmol/L [facility] LABOR[facility]ORY CO2 24 22 - 31 mmol/L [facility] LAB[facility] Anion Gap 10 5 - 15 mmol/L [facility] Calcium 8.3 (L) 8.5 - 10.5 mg/dL [facility] LABORATORY Estimated GFR 87 >=60 mL/min/1.73 m?? [facility] Comment: This patient? s estimated glomerular filtration rate (eGFR) is between 87 mL/min/1.73 m2 (patients with less muscl e mass per kg body weight) and 100 mL/min/1.73 m2 (patients with more muscl e [...] (Source) Location / / Volume Laterality Blood 07/03/2021 12:42 07/03/2021 1:05 AM EDT AM EDT Resulting Agency Comment Spec In Lab Benita Leblanc MD CHEMISTRY ORDERABLES Performing Organization Address City/State/[place] [address] (ABNORMAL) Phosphorus (07/03/2021 12:42 AM EDT) P athologist Signature Phosphorus 2.3 (L) 2.5 - 4.5 [facility] mg/dL [facility] LABORATORY Specimen Anatomical Collection Method Collection Time Receive d Time (Source) Location / / Volume Laterality Blood 07/03/2021 12:42 07/03/2021 1:05 AM EDT AM EDT Resulting Agency Comment Spec In Lab Benita Leblanc MD CHEMISTRY ORDERABLES Performing Organization Address City/State/[place] [address] POCT Glucose (07/03/2021 12:02 AM EDT) athologist Signature POC Glucose 116 65 - 199 [place] [facility] mg/dL [facility] LAB[facility] Comment: Supplemental ranges: <140 mg/dL before meals <180 mg/dL all other times of the day Specimen Anatomical Collection Method Collection Time Receive d Time (Source) Location / / Volume Laterality Blood 07/03/2021 12:02 07/03/2021 AM EDT 12:02 AM EDT Benita Leblanc MD POINT OF CARE TEST ORDERABLE S Performing Organization Address City/State/[place] [address] [facility] [address] POCT Glucose (07/02/2021 7:26 PM EDT) athologist Signature POC Glucose 150 65 - 199 [place] mg/dL [facility] LABOR[facility] Comment: Supplemental ranges: <140 mg/dL before meals <180 mg/dL all other times of the day Specimen Anatomical Collection Method Collection Time Receive d Time (Source) Location / / Volume Laterality Blood 07/02/2021 7:26 PM 2 7:26 EDT PM EDT Benita Leblanc MD POINT OF CARE TEST ORDERABLE S Performing Organization Address City/State/[place] [address] POCT Glucose (07/02/2021 4:34 PM EDT) athologist Signature POC Glucose 125 65 - 199 [place] mg/dL [facility] Comment: Supplemental ranges: <140 mg/dL before meals <180 mg/dL all other times of the day Specimen Anatomical Collection Method Collection Time Receive d Time (Source) Location / / Volume Laterality Blood 07/02/2021 4:34 PM 2 4:34 EDT PM EDT Benita Leblanc MD POINT OF CARE TEST ORDERABLE S Performing Organization Address City/State/[place] [address] (ABNORMAL) Basic Metabolic Panel (non-fasting) (07/02/2021 11:52 AM EDT) P athologist Signature Glucose Lvl 147 65 - 199 [facility] mg/dL [facility] Comment: Diabetes: >=200 mg/dL plus symp toms BUN 19 10 - 20 mg/dL [facility] Creatinine 0.84 0.80 - 1.50 mg/dL [facility] LABOR[facility]ORY Sodium 133 (L) 135 - 145 mmol/L [facility]ORY Potassium 4.3 3.5 - 5.0 mmol/L [facility] Comment: Please note: ??Patients with WBC >100,00 0 may have falsely elevated Potassium levels. ??For accurate Potassium quantif ication in these patients send serum separator tube (gold top) for subsequent determinations. ??Contact the Clinical Chemistry Laboratory if there are any qu estions. Chloride 97 (L) 98 - 107 mmol/L [facility] CO2 24 22 - 31 mmol/L [facility] Anion Gap 12 5 - 15 mmol/L [facility] Calcium 8.6 8.5 - 10.5 mg/dL [facility] Estimated GFR 86 >=60 mL/min/1.73 m?? [facility] Comment: This patient? s estimated glomerular filtration rate (eGFR) is between 86 mL/min/1.73 m2 (patients with less muscl e mass per kg body weight) and 100 mL/min/1.73 m2 (patients with more muscl e [...] Location / / Volume Laterality Blood 07/02/2021 11:52 07/02/2021 AM EDT 12:13 PM EDT Resulting Agency Comment Spec In Lab Benita Leblanc MD CHEMISTRY ORDERABLES Performing Organization Address City/State/ZIP Code Phon e Number [address] POCT Glucose (07/02/2021 11:43 AM EDT) athologist Signature POC Glucose 168 65 - 199 [place] mg/dL [facility] LAB[facility] Comment: Supplemental ranges: <140 mg/dL before meals <180 mg/dL all other times of the day Specimen Anatomical Collection Method Collection Time Receive d Time (Source) Location / / Volume Laterality Blood 07/02/2021 11:43 07/02/2021 AM EDT 11:43 AM EDT Benita Leblanc MD POINT OF CARE TEST ORDERABLE S Performing Organization Address City/State/[place] [address] POCT Glucose (07/02/2021 7:34 AM EDT) athologist Signature POC Glucose 138 65 - 199 [place] mg/dL [facility] LAB[facility] Comment: Supplemental ranges: <140 mg/dL before meals <180 mg/dL all other times of the day Specimen Anatomical Collection Method Collection Time Receive d Time (Source) Location / / Volume Laterality Blood 07/02/2021 7:34 AM 2 7:34 EDT AM EDT Mary Lemus MD POINT OF CARE TEST ORDERABLE S Performing Organization Address City/State/ZIP Code Phon e Number [address] POCT Glucose (07/02/2021 3:53 AM EDT) athologist Signature POC Glucose 183 65 - 199 [place] mg/dL [facility] LAB[facility] Comment: Supplemental ranges: <140 mg/dL before meals <180 mg/dL all other times of the day Specimen Anatomical Collection Method Collection Time Receive d Time (Source) Location / / Volume Laterality Blood 07/02/2021 3:53 AM 2 3:53 EDT AM EDT Mary Lemus MD POINT OF CARE TEST ORDERABLE S Performing Organization Address City/State/[place] [address] (ABNORMAL) Differential, Automated (07/02/2021 2:10 AM EDT) [employer] Method Time Signature Neutrophils % 83.0 % [facility] LABORATORY Neutr Abs (ANC) 10.92 (H) 1.70 - [facility] 6.10 [facility] x10(3)/[facility] LABORATORY Lymphocytes % 8.4 % [facility] LABORATORY Lymphocytes Abs 1.1 0.9 - 3.2 [facility] x10(3)/[facility] LABORATORY Monocytes % 7.8 % [facility] LABORATORY Monocyte Abs 1.0 (H) 0.3 - 0.9 [facility] x10(3)/[facility] LABORATORY Eosinophils % 0.0 % [facility] LABORATORY Eosinophils Abs 0.0 0.0 - 0.4 [facility] x10(3)/[facility] LABORATORY Basophils % 0.1 % [facility] LABORATORY Basophils Abs 0.0 0.0 - 0.1 [facility] x10(3)/[facility] LABORATORY Immature Gran % 0.70 % [facility] LABORATORY Comment: Immature granulocytes(IG's)percentage an d absolute count will include metamyelocytes, myelocytes, and promyelo cytes. Blood smears from CBCs yielding IG's will be scanned manually for concor dance. If this scan disagrees with the automated IG or if promyelocytes are not ed, a manual differential will be performed. Beba Gran Abs 0.09 (H) 0.00 - 0.04 x10(3)/[facility] LABORATORY Specimen Anatomical Collection Method Collection Time Receive d Time (Source) Location / / Volume Laterality Blood 07/02/2021 2:10 AM 2 2:25 EDT AM EDT Resulting Agency Comment Spec In Lab Mary Lemus MD HEMATOLOGY ORDERABLES Performing Organization Address City/State/ZIP Code Phon e Number [place] [id number] (ABNORMAL) Hemogram (07/02/2021 2:10 AM EDT) Analysis Performed At Patho logist Time Signature WBC 13.2 (H) 4.0 - 9.5 [facility] LABORATORY RBC 4.14 (L) 4.58 - [place] 5.54 [facility] x10(6)/[facility] LABORATORY Hemoglobin 12.3 (L) 13.7 - [facility] 16.5 g/dL [facility] LABORATORY Hematocrit 36.5 (L) 40.5 - [facility] 48.5 % [facility] LABORATORY MCV 88.2 82.9 - [facility] 93.1 [facility] LABORATORY MCH 29.7 27.5 - [place] 32.1 pg [facility] LABORATORY MCHC 33.7 32.0 - [place] 35.7 g/dL [facility] LABORATORY Platelets 313 145 - 357 [facility] x10(3)/[facility] LABORATORY RDWSD 39.5 36.0 - [place] 45.0 [facility] LABORATORY RDWCV 12.3 11.4 - [facility] [place] 13.8 % [facility] LABORATORY MPV 10.6 7.6 - 12.9 [facility] LABORATORY nRBC % Auto 0.0 % [facility] LABORATORY nRBC Abs Auto 0.000 0.000 - [facility] [place] 0.000 [facility] x10(3)/[facility] LABORATORY Specimen Anatomical Collection Method Collection Time Receive d Time (Source) Location / / Volume Laterality Blood 07/02/2021 2:10 AM 2 2:25 EDT AM EDT Resulting Agency Comment Spec In Lab Mary Lemus MD HEMATOLOGY ORDERABLES Performing Organization Address City/State/[place] [address] (ABNORMAL) Basic Metabolic Panel (non-fasting) (07/02/2021 2:10 AM EDT) P athologist Signature Glucose Lvl 138 65 - 199 [facility] mg/dL [facility] Comment: Diabetes: >=200 mg/dL plus symp toms BUN 16 10 - 20 mg/dL [facility] Creatinine 0.88 0.80 - 1.50 mg/dL [facility] Sodium 132 (L) 135 - 145 mmol/L [facility] Potassium 4.2 3.5 - 5.0 mmol/L [facility] Comment: Please note: ??Patients with WBC >100,00 0 may have falsely elevated Potassium levels. ??For accurate Potassium quantif ication in these patients send serum separator tube (gold top) for subsequent determinations. ??Contact the Clinical Chemistry Laboratory if there are any qu estions. Chloride 98 98 - 107 mmol/L [facility] CO2 23 22 - 31 mmol/L [facility] Anion Gap 11 5 - 15 mmol/L [facility] Calcium 8.3 (L) 8.5 - 10.5 mg/dL [facility] Estimated GFR 85 >=60 mL/min/1.73 m?? [facility] Comment: This patient? s estimated glomerular filtration rate (eGFR) is between 85 mL/min/1.73 m2 (patients with less muscl e mass per kg body weight) and 98 mL/min/1.73 m2 (patients with more muscl e [...] Lemus MD CHEMISTRY ORDERABLES Performing Organization Address City/State/[place] [address] Hemoglobin A1c (07/02/2021 2:10 AM EDT) athologist Signature Hemoglobin A1C 5.5 4.3 - 5.6 [place] [facility] Comment: Reference Range: 4.3 - [...] [id number] Est Avg Gluc See note mg/dL [facility] Comment: Estimated Average Glucose not [...] with hemoglobinopathies. Additional resources are available on e ADA website. Estefania BERGERON, Carlos J, Tasha R, et al. ??Tr anslating the A1C assay into estimated average glucose values. ??Diabetes Care 2008:31(8):9346-5187. Specimen Anatomical Collection Method Collection Time Receive d Time (Source) Location / / Volume Laterality Blood 07/02/2021 2:10 AM 2 2:25 EDT AM EDT Resulting Agency Comment Spec In Lab Mary Lemus MD CHEMISTRY ORDERABLES Performing Organization Address City/[facility]/ZIP Code Phon e Number [address] Magnesium (07/02/2021 2:10 AM EDT) P athologist Signature Magnesium 0.87 0.69 - 1.07 [facility] mmol/L [facility] Specimen Anatomical Collection Method Collection Time Receive d Time (Source) Location / / Volume Laterality Blood 07/02/2021 2:10 AM 2 2:25 EDT AM EDT Resulting Agency Comment Spec In Lab Benita Leblanc MD CHEMISTRY ORDERABLES Performing Organization Address City/[facility]/ZIP Code Phon e Number [address] Phosphorus (07/02/2021 2:10 AM EDT) P athologist Signature Phosphorus 3.0 2.5 - 4.5 [place] mg/dL [facility] Specimen Anatomical Collection Method Collection Time Receive d Time (Source) Location / / Volume Laterality Blood 07/02/2021 2:10 AM 2 2:25 EDT AM EDT Resulting Agency Comment Spec In Lab Benita Leblanc MD CHEMISTRY ORDERABLES Performing Organization Address City/[facility]/ZIP Code Phon e Number [address] POCT Glucose (07/02/2021 12:05 AM EDT) P athologist Signature POC Glucose 147 65 - 199 [place] mg/dL [facility] Comment: Supplemental ranges: <140 mg/dL before meals <180 mg/dL all other times of the day Specimen Anatomical Collection Method Collection Time Receive d Time (Source) Location / / Volume Laterality Blood 07/02/2021 12:05 07/02/2021 AM EDT 12:05 AM EDT Mary Lemus MD POINT OF CARE TEST ORDERABLE S Performing Organization Address City/State/ZIP Code Phon e Number [address] POCT Glucose (07/01/2021 8:06 PM EDT) athologist Signature POC Glucose 162 65 - 199 [place] mg/dL [facility] Comment: Supplemental ranges: <140 mg/dL before meals <180 mg/dL all other times of the day Specimen Anatomical Collection Method Collection Time Receive d Time (Source) Location / / Volume Laterality Blood 07/01/2021 8:06 PM 2 8:06 EDT PM EDT Mary Lemus MD POINT OF CARE TEST ORDERABLE S Performing Organization Address City/State/ZIP Code Phon e Number [address] POCT Glucose (07/01/2021 4:28 PM EDT) athologist Signature POC Glucose 150 65 - 199 [place] mg/dL [facility] Comment: Supplemental ranges: <140 mg/dL before meals <180 mg/dL all other times of the day Specimen Anatomical Collection Method Collection Time Receive d Time (Source) Location / / Volume Laterality Blood 07/01/2021 4:28 PM 2 4:28 EDT PM EDT Mary Lemus MD POINT OF CARE TEST ORDERABLE S Performing Organization Address City/State/ZIP Code Phon e Number [address] POCT Glucose (07/01/2021 12:02 PM EDT) athologist Signature POC Glucose 196 65 - 199 [place] mg/dL [facility] Comment: Supplemental ranges: <140 mg/dL before meals <180 mg/dL all other times of the day Specimen Anatomical Collection Method Collection Time Receive d Time (Source) Location / / Volume Laterality Blood 07/01/2021 12:02 07/01/2021 PM EDT 12:02 PM EDT Mary Lemus MD POINT OF CARE TEST ORDERABLE S Performing Organization Address City/State/[place] [address] POCT Glucose (07/01/2021 7:48 AM EDT) athologist Signature POC Glucose 127 65 - 199 [place] mg/dL [facility] Comment: Supplemental ranges: <140 mg/dL before meals <180 mg/dL all other times of the day Specimen Anatomical Collection Method Collection Time Receive d Time (Source) Location / / Volume Laterality Blood 07/01/2021 7:48 AM 2 7:48 EDT AM EDT Mary Lemus MD POINT OF CARE TEST ORDERABLE S Performing Organization Address City/State/ZIP Code Phon e Number [address] POCT Glucose (07/01/2021 4:30 AM EDT) athologist Signature POC Glucose 145 65 - 199 [facility] mg/dL [facility] Comment: Supplemental ranges: <140 mg/dL before meals <180 mg/dL all other times of the day Specimen Anatomical Collection Method Collection Time Receive d Time (Source) Location / / Volume Laterality Blood 07/01/2021 4:30 AM 2 4:30 EDT AM EDT Mary Lemus MD POINT OF CARE TEST ORDERABLE S Performing Organization Address City/State/[place] [address] (ABNORMAL) Differential, Automated (07/01/2021 12:30 AM EDT) [facility] gist Method Time Signature Neutrophils % 84.1 % [facility] Neutr Abs (ANC) 13.53 (H) 1.70 - [facility] 6.10 [facility] x10(3)/[facility] LABORATORY Lymphocytes % 7.7 % [facility] LAB[facility] Lymphocytes Abs 1.2 0.9 - 3.2 [facility] x10(3)/[facility] LABORATORY Monocytes % 7.2 % [facility] LAB[facility] Monocyte Abs 1.2 (H) 0.3 - 0.9 [facility] x10(3)/[facility] LABORATORY Eosinophils % 0.0 % [facility] LAB[facility] Eosinophils Abs 0.0 0.0 - 0.4 [facility] x10(3)/[facility] LABORATORY Basophils % 0.1 % [facility] Basophils Abs 0.0 0.0 - 0.1 [facility] x10(3)/[facility] LABORATORY Immature Gran % 0.90 % [facility] Comment: Immature granulocytes(IG's)percentage an d absolute count will include metamyelocytes, myelocytes, and promyelo cytes. Blood smears from CBCs yielding IG's will be scanned manually for concor dance. If this scan disagrees with the automated IG or if promyelocytes are not ed, a manual differential will be performed. Beba Gran Abs 0.14 (H) 0.00 - 0.04 x10(3)/[facility] LABORATORY Specimen Anatomical Collection Method Collection Time Receive d Time (Source) Location / / Volume Laterality Blood 07/01/2021 12:30 07/01/2021 1:15 AM EDT AM EDT Resulting Agency Comment Spec In Lab Emmy Boyer MD HEMATOLOGY ORDERABLES Performing Organization Address City/State/[place] [address] (ABNORMAL) Hemogram (07/01/2021 12:30 AM EDT) Analysis Performed At Patho logist Time Signature WBC 16.1 (H) 4.0 - 9.5 [facility] x10(3)/[facility] LABORATORY RBC 4.11 (L) 4.58 - [facility] 5.54 [facility] x10(6)/[facility] LABORATORY Hemoglobin 12.1 (L) 13.7 - [facility] 16.5 g/dL [facility] LAB[facility] Hematocrit 35.9 (L) 40.5 - [facility] 48.5 % [facility] LAB[facility] MCV 87.3 82.9 - [facility] 93.1 fL [facility] LAB[facility]ATORY MCH 29.4 27.5 - [facility] 32.1 pg [facility] LABORATORY MCHC 33.7 32.0 - EVELIA TAMAYO 35.7 g/dL [facility] LABORATORY Platelets 319 145 - 357 [place] BELKIS x10(3)/[facility] LABORATORY RDWSD 39.3 36.0 - EVELIA TAMAYO 45.0 [facility] LABORATORY RDWCV 12.2 11.4 - [place] BELKIS 13.8 % [facility] LABORATORY MPV 10.5 7.6 - 12.9 [facility] nRBC % Auto 0.0 % [facility] LABORATORY nRBC Abs Auto 0.000 0.000 - [place] 0.000 [facility] x10(3)/[facility] LABORATORY Specimen Anatomical Collection Method Collection Time Receive d Time (Source) Location / / Volume Laterality Blood 07/01/2021 12:30 07/01/2021 1:15 AM EDT AM EDT Resulting Agency Comment Spec In Lab Emmy Boyer MD HEMATOLOGY ORDERABLES Performing Organization Address City/State/ZIP Code Phon e Number [address] Phosphorus (07/01/2021 12:30 AM EDT) P athologist Signature Phosphorus 3.4 2.5 - 4.5 [facility] mg/dL [facility] LABOR[facility] Specimen Anatomical Collection Method Collection Time Receive d Time (Source) Location / / Volume Laterality Blood 07/01/2021 12:30 07/01/2021 1:15 AM EDT AM EDT Resulting Agency Comment Spec In Lab Benita Leblanc MD CHEMISTRY ORDERABLES Performing Organization Address City/State/ZIP Code Phon e Number [address] Magnesium (07/01/2021 12:30 AM EDT) P athologist Signature Magnesium 0.90 0.69 - 1.07 [facility] mmol/L [facility] LABOR[facility] Specimen Anatomical Collection Method Collection Time Receive d Time (Source) Location / / Volume Laterality Blood 07/01/2021 12:30 07/01/2021 1:15 AM EDT AM EDT Resulting Agency Comment Spec In Lab Benita Leblanc MD CHEMISTRY ORDERABLES Performing Organization Address City/State/[place] [address] (ABNORMAL) Basic Metabolic Panel (non-fasting) (07/01/2021 12:30 AM EDT) P athologist Signature Glucose Lvl 121 65 - 199 [facility] mg/dL [facility] Comment: Diabetes: >=200 mg/dL plus symp toms BUN 18 10 - 20 mg/dL [facility] Creatinine 0.93 0.80 - 1.50 mg/dL [facility] LABORATORY Sodium 136 135 - 145 mmol/L [facility] Potassium 4.3 3.5 - 5.0 mmol/L [facility] Comment: Please note: ??Patients with WBC >100,00 0 may have falsely elevated Potassium levels. ??For accurate Potassium quantif ication in these patients send serum separator tube (gold top) for subsequent determinations. ??Contact the Clinical Chemistry Laboratory if there are any qu estions. Chloride 100 98 - 107 mmol/L [facility] CO2 24 22 - 31 mmol/L [facility] Anion Gap 12 5 - 15 mmol/L [facility] Calcium 8.4 (L) 8.5 - 10.5 mg/dL [facility] Comment: result rechecked-EWR Estimated GFR 81 >=60 mL/min/1.73 m?? [facility] Comment: This patient? s estimated [...] (Source) Location / / Volume Laterality Blood 07/01/2021 12:30 07/01/2021 1:15 AM EDT AM EDT Resulting Agency Comment Spec In Lab Mary Lemus MD CHEMISTRY ORDERABLES Performing Organization Address City/State/ZIP Code Phon e Number [place] [id number] MRI Brain wwo Contrast (Generic) (06/30/2021 10:41 PM EDT) Anatomical Region Laterality Modality Head Magnetic Resonance Specimen (Source) Anatomical Location Collection Method / Collectio n Time Received Time / Laterality Volume Impressions 07/01/2021 8:46 AM EDT Postsurgical changes after resection of left-sided metastatic lesions. Thank you for letting us participate in the care of this patient. ??If you are a health care provider and have any questi ons regarding this report, please contact the number below. ??For patients who have questions please contact the health acute care physical therapist that requested your imaging first. ? Electronically signed by: David Lala MD, 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 COMPARISON: CT 06/28/2021, MR 06/28/2021 FINDINGS: There has been interval left-sided crani otomies with left frontal and superior mesial posterior frontal/parietal resect ions. There is a rim of abnormal enhancement associated with the resectio n cavities, especially at the deep and anterolateral margin of the more posteri or lesion, and at the anterior mesial margin of the anterior lesion. Right sup erior posterior frontal, and precentral metastatic lesions are unchanged. The le ft-sided edema is similar in extent. Localized sulcal effacement is similar. There is no new infarct. Blood products are associated with areas of resection. Procedure Note David Lala MD - 07/01/2021Format ting of this note might be different from the original. 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 COMPARISON: CT 06/28/2021, MR 06/28/2021 FINDINGS: There has been interval left-sided crani otomies with left frontal and superior mesial posterior frontal/parietal resect ions. There is a rim of abnormal enhancement associated with the resectio n cavities, especially at the deep and anterolateral margin of the more posteri or lesion, and at the anterior mesial margin of the anterior lesion. Right sup erior posterior frontal, and precentral metastatic lesions are unchanged. The le ft-sided edema is similar in extent. Localized sulcal effacement is similar. There is no new infarct. Blood products are associated with areas of resection. IMPRESSION Postsurgical changes after resection of left-sided metastatic lesions. Thank you for letting us participate in the care of this patient. If you are a health care provider and have any questi ons regarding this report, please contact the number below. For patients w ho have questions please contact the health acute care physical therapist that requested your imaging first. Mary Lemus MD IMG MRI ORDERABLES POCT Glucose (06/30/2021 8:51 PM EDT) athologist Signature POC Glucose 126 65 - 199 [facility] mg/dL [facility] LABOR[facility] Comment: Supplemental ranges: <140 mg/dL before meals <180 mg/dL all other times of the day Specimen Anatomical Collection Method Collection Time Receive d Time (Source) Location / / Volume Laterality Blood 06/30/2021 8:51 PM 2 8:51 EDT PM EDT Mary Lemus MD POINT OF CARE TEST ORDERABLE S Performing Organization Address City/[facility]/ZIP Code Phon e Number [address] POCT Glucose (06/30/2021 2:25 PM EDT) P athologist Signature POC Glucose 156 65 - 199 [facility] mg/dL [facility] Comment: Supplemental ranges: <140 mg/dL before meals <180 mg/dL all other times of the day Specimen Anatomical Collection Method Collection Time Receive d Time (Source) Location / / Volume Laterality Blood 06/30/2021 2:25 PM 2 EDT 2:25 PM EDT Mary Lemus MD POINT OF CARE TEST ORDERABLE S Performing Organization Address City/[facility]/[place] [address] Solid Tumor NGS Panel (06/30/2021 12:51 PM EDT) Specimen Anatomical Collection Method Collection Time Receive d Time (Source) Location / / Volume Laterality Tissue 06/30/2021 12:51 07/11/2021 PM EDT 12:51 PM EDT Resulting Agency Comment Spec In Lab Estefania Justice MD PATHOLOGY/CYTOLOGY ORDERABLE S Performing Organization Address City/[facility]/ZIP Code Phon e Number [address] Surgical Pathology Report (06/30/2021 12:51 PM EDT) Component Value Ref Test Analysis Performed At Patholo gist Range Method Time Signature Surgical [id number] ? Location: 5WST; 0511; [facility] Report The signing pathologist has (i) examined the relevant preparation(s) for the [facility] specimen(s) and (ii) rendered or confirmed the [...] with Dr. Ferdinand Callahan. Electronically signed by: ?Katina ARTHUR, Wally Brown Verified: ??07/23/2021 12:07 ??Pathologist Performed at: ??-[facility] Dept. of Pathology, [place], [place] SYNOPTIC none DISCUSSION Hematoxylin and eosin-staine [...] The assay was performed according to the field technician's instructions using Anti-PD-L1 (22C3, pharmDX) antibody. Electronically signed by: ?Gerber ARTHUR PhD, Katrin Verified: ??07/13/2021 10:01 ??Pathologist Performed at: ??-[facility] Dept. of Pathology, [place], [place] ?Fro micaela Section FROZEN SECTION DIAGNOSIS A-FS1: Smear and frozen sect ion preparations on ?? Likely Lung Primary. ? Small Cell or Not???, excision : EPITHELIOID NEOPLASM, FAVOR METASTATIC CARCINOMA. (GJZ) . FROZEN SECTION DIAGNOSIS 06/30/21 13:25 Electronically signed by: ?Wally Ambriz MD Verified: ??06/30/2021 13:30 ??Pathologist Performed at: ??-[facility] Dept. of Pathology, [place], [place] This intraoperative consultation should be interpreted as a preliminary diagnosis pending review of the entire specimen and sp ecial studies, if any. A final Surgical Pathology report will follow th is preliminary Frozen Section report(s). Specimen (Source) Anatomical Collection Method Collection Time Re ceived Time Location / / Volume Laterality 06/30/2021 12:51 PM EDT Estefania Justice MD PATHOLOGY/CYTOLOGY ORDERABLE S Performing Organization Address City/State/[place] [address] Specimen to Pathology (06/30/2021 12:51 PM EDT) Specimen Anatomical Collection Method Collection Time Receive d Time (Source) Location / / Volume Laterality AP Specimen 06/30/2021 12:51 06/30/2021 PM EDT 12:51 PM EDT [facility] 12:51 PM EDT Specimen requisition ordered. ??Separate Pathology report to follow Mary Lemus MD PATHOLOGY/CYTOLOGY ORDERABLE S Performing Organization Address City/State/[place] [address] Specimen to Pathology (06/30/2021 12:51 PM EDT) Specimen Anatomical Collection Method Collection Time Receive d Time (Source) Location / / Volume Laterality AP Specimen 06/30/2021 12:51 06/30/2021 PM EDT 12:[address] [facility] - 06/30/2021 12:51 PM EDT Specimen requisition ordered. ??Separate Pathology report to follow Mary Lemus MD PATHOLOGY/CYTOLOGY ORDERABLE S Performing Organization Address City/[facility]/[place] [address] (ABNORMAL) Differential, Automated (06/30/2021 1:12 AM EDT) [facility] gist Method Time Signature Neutrophils % 89.3 % [facility] LABORATORY Neutr Abs (ANC) 15.13 (H) 1.70 - [facility] 6.10 [facility] x10(3)/[facility] LABORATORY Lymphocytes % 6.1 % [facility] LABORATORY Lymphocytes Abs 1.0 0.9 - 3.2 [facility] x10(3)/[facility] LABORATORY Monocytes % 4.0 % [facility] LABORATORY Monocyte Abs 0.7 0.3 - 0.9 [facility] x10(3)/[facility] LABORATORY Eosinophils % 0.0 % [facility] LABOR[facility]ORY Eosinophils Abs 0.0 0.0 - 0.4 [facility] x10(3)/[facility] LABORATORY Basophils % 0.1 % [facility] Basophils Abs 0.0 0.0 - 0.1 [facility] x10(3)/[facility] LABORATORY Immature Gran % 0.50 % [facility] Comment: Immature granulocytes(IG's)percentage an d absolute count will include metamyelocytes, myelocytes, and promyelo cytes. Blood smears from CBCs yielding IG's will be scanned manually for concor danrussell. If this scan disagrees with the automated IG or if promyelocytes are not ed, a manual differential will be performed. Beba Gran Abs 0.08 (H) 0.00 - 0.04 x10(3)/[facility] LABORATORY Specimen Anatomical Collection Method Collection Time Receive d Time (Source) Location / / Volume Laterality Blood 06/30/2021 1:12 AM 2 1:34 EDT AM EDT Resulting Agency Comment Spec In Lab Juan Gaytan DO HEMATOLOGY ORDERABLES Performing Organization Address City/State/[place] [address] (ABNORMAL) Hemogram (06/30/2021 1:12 AM EDT) Analysis Performed At Patho logist Time Signature WBC 16.9 (H) 4.0 - 9.5 [facility] x10(3)/[facility] LABORATORY RBC 4.48 (L) 4.58 - [facility] 5.[facility] x10(6)/[facility] LABORATORY Hemoglobin 13.1 (L) 13.7 - [facility] 16.5 g/dL [facility] LABORATORY Hematocrit 38.7 (L) 40.5 - [facility] 48.5 % [facility] LABORATORY MCV 86.4 82.9 - [facility] 93.1 [facility] LABORATORY MCH 29.2 27.5 - [facility] 32.1 pg [facility] LABORATORY MCHC 33.9 32.0 - [facility] 35.[facility] g/dL [facility] LABORATORY Platelets 374 (H) 145 - 357 [facility] x10(3)/[facility] LABORATORY RDWSD 38.6 36.0 - [facility] 45.0 [facility] RDWCV 12.1 11.4 - [facility] 13.8 % [facility] LABORATORY MPV 10.0 7.6 - 12.9 [facility] LABORATORY nRBC % Auto 0.0 % [facility] LABORATORY nRBC Abs Auto 0.000 0.000 - [facility] 0.000 [facility] x10(3)/[facility] LABORATORY Specimen Anatomical Collection Method Collection Time Receive d Time (Source) Location / / Volume Laterality Blood 06/30/2021 1:12 AM 2 1:34 EDT AM EDT Resulting Agency Comment Spec In Lab Juan Gaytan DO HEMATOLOGY ORDERABLES Performing Organization Address City/[facility]/ZIP Code Phon e Number [address] Magnesium (06/30/2021 1:12 AM EDT) P athologist Signature Magnesium 0.97 0.69 - 1.07 [facility] mmol/L [facility] LABORATORY Specimen Anatomical Collection Method Collection Time Receive d Time (Source) Location / / Volume Laterality Blood 06/30/2021 1:12 AM 2 1:34 EDT AM EDT Resulting Agency Comment Spec In Lab Benita Leblanc MD CHEMISTRY ORDERABLES Performing Organization Address City/State/[place] [address] (ABNORMAL) Basic Metabolic Panel (non-fasting) (06/30/2021 1:12 AM EDT) athologist Signature Glucose Lvl 180 65 - 199 [facility] mg/dL [facility] LABORATORY Comment: Diabetes: >=200 mg/dL plus symp toms BUN 23 (H) 10 - 20 mg/dL [facility] LABORATORY Creatinine 1.20 0.80 - 1.50 mg/dL [facility] LABORATORY Sodium 134 (L) 135 - 145 mmol/L [facility] LABORATORY Potassium 4.2 3.5 - 5.0 mmol/L [facility] LABORATORY Comment: Please note: ??Patients with WBC >100,00 0 may have falsely elevated Potassium levels. ??For accurate Potassium quantif ication in these patients send serum separator tube (gold top) for subsequent determinations. ??Contact the Clinical Chemistry Laboratory if there are any qu estions. Chloride 97 (L) 98 - 107 mmol/L [facility] LABORATORY CO2 25 22 - 31 mmol/L [facility] LABORATORY Anion Gap 12 5 - 15 mmol/L [facility] LABORATORY Calcium 9.4 8.5 - 10.5 mg/dL [facility] LABORATORY Estimated GFR 59 (L) >=60 mL/min/1.73 m?? [facility] LABORATORY Comment: This patient? s estimated glomerular filtration rate (eGFR) is between 59 mL/min/1.73 m2 (patients with less muscl e mass per kg body weight) and 69 mL/min/1.73 m2 (patients with more muscl e [...] (Source) Location / / Volume Laterality Blood 06/30/2021 1:12 AM 2 1:34 EDT AM EDT Resulting Agency Comment Spec In Lab Mary Lemus MD CHEMISTRY ORDERABLES Performing Organization Address City/State/ZIP Code Phon e Number [place] [id number]OSP[address] LAB[address]ORY [address] EEG awake, asleep, drowsy, routine (06/29/2021 2:20 AM EDT) Narrative Wally Lemon Jr., MD - 06/29/2021 2: 20 AM EDT Jessie Radford MD ? 06/29/2021 ??9:55 AM [facility] Department of Neurology Inpatient EEG Report Name of the Patient: ??Betsy Laird Date of : ?1945 Date of Service: ?06/29/2021 Referring physician: ?Juan Gaytan, DO BRIEF HISTORY: Betsy Laird is a 75 y.o. patient with s eizure. MEDICATIONS: Current Facility-Administered Medication s Medication Dose Route Frequency Provider Last Rate Last Admin ? ? metoprolol tartrate (Lopressor) tablet 12.5 mg ??12.5 mg Oral Q8H CORIN Lucila, Juan E, DO ? sodium chloride 0.9 % (flush) (BD PosiFlush Normal Saline 0.9) flush 5 mL ??5 mL Intravenous BID Segundoe, Juan E, DO ?? 5 mL at 06/29/21 0100 ? ? sodium chloride 0.9 % (flush) (BD PosiFlush Normal Saline 0.9) flush 5-20 mL ??5-20 mL Intravenous Q1 M in PRN Juan Gaytan E, DO ? lidocaine (Xylocaine) 1% (10 mg/mL) injection 3 mg ??0.3 mL Subcutaneous Once PRN Segundoe, Juan E, DO ? acetaminophen (Tylenol) tablet 975 mg ??975 mg Oral Q8H PRN Lucila Juan E, DO ? melatonin tablet 6 mg ??6 mg Oral Nightly Segundoe, Juan E, DO ? dexamethasone (Decadron) tablet 4 mg ??4 mg Oral Q6H CORIN Segundoe, Juan E, DO ?? 4 mg at 06/28/21 2344 ? ? atorvastatin (Lipitor) tablet 80 mg ??80 mg Oral QPM Segundoe, Juan E, DO ?? 80 mg at 06/28/212248 ? ? pantoprazole EC (Protonix) tablet 40 mg ??40 mg Oral Daily Gale, Juan E, DO ?? 40 mg at 06/28/212248 ? ? levETIRAcetam (Keppra) tablet 500 mg ??500 mg Oral BID Gale, Juan E, DO ? METHODS: A 21 channel digitized electroencephalog michael was performed in the [facility] Clinical Neurophysio logy Laboratory. The 10/20 international system of electrode placement was used and bipolar and referential electrode montag es were recorded. ??In addition to EEG the patient was monitore d for EKG and lateral/vertical eye movements. Video wa s recorded during the session. The duration of the recording w as 70 minutes. NET WPF DEVELOPER'S REPORT: Performed by: AT Patient was not sleep deprived. Sleep was attained. Photic stimulation was performed. Hyperventilation was not performed. Effo rt was not adequate. Movement and other artifact was not sign ificant. Comments: None. ELECTROENCEPHALOGRAPHER'S REPORT: Background During the awake state with the eyes ynaa sed the background consisted of a moderate [...] Jessie Radford MD Epilepsy fellow PGY-6 Pager #[phone] 06/29/2021 Juan Gaytan DO NEUROLOGY ORDERABLES CT [...] who have questions please contact the health acute care physical therapist that requested your imaging first. ? Electronically signed by: Keo Wong MD, [facility] ([phone]), at 06/29/2021 1:59 AM Narrative 06/29/2021 1:59 [...] ho have questions please contact the health acute care physical therapist that requested your imaging first. Jimena Christie BLACK TOP SPREADER MACHINE OPERATOR IMG CT ORDERABLES Prothrombin Time (06/28/2021 9:38 PM EDT) athologist Signature PT 12.3 9.4 - 12.5 [facility] LABORATORY INR 1.1 [facility] LABORATORY Comment: An INR <2.0 indicates adequate [...] / Volume Laterality Blood 06/28/2021 9:38 PM 2 9:50 EDT PM EDT Resulting Agency Comment Spec In Lab Juan Gaytan DO HEMATOLOGY ORDERABLES Performing Organization Address City/[facility]/[place] [address] APTT (06/28/2021 9:38 PM EDT) athologist Signature PTT 33 25 - 37 sec [facility] LABORATORY Comment: The PTT is NOT appropriate for heparin m onitoring. Use the Anti-Xa level for heparin monitoring (HEP UFH) or LMWH mon itoring (HEP LMW). A PTT less than 37 seconds generally indicates adequate hem ostasis. Specimen Anatomical Collection Method Collection Time Receive d Time (Source) Location / / Volume Laterality Blood 06/28/2021 9:38 PM 2 9:50 EDT PM EDT Resulting Agency Comment Spec In Lab Juan Gaytan DO HEMATOLOGY ORDERABLES Performing Organization Address City/State/ZIP [place] [address] COVID-19 PCR (06/28/2021 9:03 PM EDT) [employer] Method Time Signature SARS-CoV-2 Not Detected Not Detected [place] RNA PCR [facility] LABORATORY [...] of CO VID-19 is performed using the [place] COVID-19 Direct Assay by [employer] as authorized by the FDA issued Emergency [...] Department of Pathology and Laboratory Medicine at [facility], certified under the Clinical Laboratory Improvement Amendmen [...] fact sheets at the following FDA website: https://www.fda.gov/medical-devices/jaxpfrqixls-kkchsip-0776-kmmdy-64-fkfruecvc- vtl-jfqgrmnkeiaded-eiclxkx-devices/ehutq-qalyhxvvefe-vwuo SARS-CoV-2 Source SPACE TECHNOLOGIST Swab [facility] LABORATORY Specimen (Source) Anatomical Collection Method Collection Time Re ceived Time Location / / Volume Laterality Nasopharyngeal Swab 06/28/2021 9:03 06/28 PM EDT 9:12 PM EDT Comment: Symptoms->Surveillance Resulting Agency Comment Spec In Lab Jimena Christie BLACK TOP SPREADER MACHINE OPERATOR MICROBIOLOGY - GENERAL ORDER CHENG Performing Organization Address City/State/[place] [address] XR Chest PA & Lateral (Generic) (06/28/2021 8:51 PM EDT) Anatomical Region Laterality Modality Chest N/A Digital Radiography Specimen (Source) Anatomical Location Collection Method / Collectio n Time Received Time / Laterality Volume Impressions 06/28/2021 9:23 PM EDT Abnormal enlarged size of the right hilum concerning for adenopathy versus mass. Consider chest CT with contrast for ramont her characterization. Thank you for letting us participate in the care of this patient. ??If you are a health care provider and have any questi ons regarding this report, please contact the number below. ??For patients who have questions please contact the health acute care physical therapist that requested your imaging first. ? Electronically signed by: Derrick angel MD, [facility] ([phone]), at 06/28/2021 9:23 PM Narrative 06/28/2021 9:23 [...] original. EXAMINATION: XR CHEST PA AND LATERAL (GE NERIC) CLINICAL HISTORY: new brain mass, cough TECHNIQUE: [...] ho have questions please contact the health acute care physical therapist that requested your imaging first. Electronically signed by: Derrick angel MD, [facility] ([phone]), at 06/28/2021 9:23 PM Jimena Christie BLACK TOP SPREADER MACHINE OPERATOR IMG DX ORDERABLES CT Head wo Contrast (Generic) (06/28/2021 7:48 PM EDT) Anatomical Region Laterality Modality Head Computed Tomography Specimen (Source) Anatomical Collection Method Collection Time Re ceived Time Location / / Volume Laterality 06/28/2021 8:06 PM EDT Impressions 06/28/2021 8:03 PM EDT 1. ??Multiple large hyperdense masses within the superior left frontal lobe with extensive surrounding edema. There are a dditional small hyperdense masses in the superior right frontal lobe. Findings ar e most consistent with metastases. The degree of edema and mass effect is uncha nged. 2. ??Small right middle cranial fossa ar achnoid cyst. Thank you for letting us participate in the care of this patient. ??If you are a health care provider and have any questi ons regarding this report, please contact the number below. ??For patients who have questions please contact the health acute care physical therapist that requested your imaging first. ? Electronically signed by: Derrick angel MD, [facility] ([phone]), at 06/28/2021 8:03 PM Narrative 06/28/2021 8:03 PM EDT EXAMINATION: CT HEAD WO CONTRAST (GENERIC) CLINICAL HISTORY: COMBINATION WELDER metastatic lesions suspected, initial workup; progressive right sided weakness r/o mets/bleed TECHNIQUE: CT head performed without intravenous co ntrast administration. COMPARISON: Brain MRI 06/28/2021 FINDINGS: There is a large peripherally hyperdense mass within the superior left frontal lobe which measures 3 x 2.7 x 2.6 cm in size with central low attenuation. There is extensive surrounding vasogenic edema and local mass effect, with mild xxli-ez-divyp subfalcine herniation, and effacement of the anterior left lateral ventricle there is minimal 3 mm left-to- right midline shift measured at the foramen of Monro. There is an additional 3 cm hyperdense m ass at the superior left vertex, with surrounding vasogenic edema with sulcal effacement. There is an additional 1.5 cm mass in th e superior right frontal lobe (axial series 4 image 28) with additional small 5 mm lesion located more posteriorly (axial series 2 image 33). There is a right anterior middle cranial fossa arachnoid cyst which measures 3 x 2.4 cm in size with mild mass effect upo n the anterior right temporal lobe. No extra-axial collections. There is ext ensive vasogenic edema within the anterior and superior left frontal lobe. Global Cuellar matter white matter differentiation is otherwise well preser pasha. The orbits are unremarkable. The visualized paranasal sinuses are clear. The mastoid air cells are clear. No suspicious osseous lesions. No calvarial fracture. Normal extracalvarial soft tissues. Procedure Note Derrick Suresh MD - 06/28/2021Fo rmatting of this note might be different from the original. EXAMINATION: CT HEAD WO CONTRAST (GENERI C) CLINICAL HISTORY: COMBINATION WELDER metastatic lesions suspected, initial workup; progressive right sided weakness r/o mets/bleed TECHNIQUE: CT head performed without intravenous co ntrast administration. COMPARISON: Brain MRI 06/28/2021 FINDINGS: There is a large peripherally hyperdense mass within the superior left frontal lobe which measures 3 x 2.7 x 2.6 cm in size with central low attenuation. There is extensive surrounding vasogenic edema and local mass effect, with mild gyhc-mi-ephdg subfalcine herniation, and effacement of the anterior left lateral ventricle there is minimal 3 mm left-to- right midline shift measured at the foramen of Monro. There is an additional 3 cm hyperdense m ass at the superior left vertex, with surrounding vasogenic edema with sulcal effacement. There is an additional 1.5 cm mass in th e superior right frontal lobe (axial series 4 image 28) with additional small 5 mm lesion located more posteriorly (axial series 2 image 33). There is a right anterior middle cranial fossa arachnoid cyst which measures 3 x 2.4 cm in size with mild mass effect upo n the anterior right temporal lobe. No extra-axial collections. There is ext ensive vasogenic edema within the anterior and superior left frontal lobe. Global Cuellar matter white matter differentiation is otherwise well preser pasha. The orbits are unremarkable. The visualized paranasal sinuses are clear. The mastoid air cells are clear. No suspicious osseous lesions. No calvarial fracture. Normal extracalvarial soft tissues. IMPRESSION 1. Multiple large hyperdense masses with in the superior left frontal lobe with extensive surrounding edema. There are a dditional small hyperdense masses in the superior right frontal lobe. Findings ar e most consistent with metastases. The degree of edema and mass effect is uncha nged. 2. Small right middle cranial fossa arac hnoid cyst. Thank you for letting us participate in the care of this patient. If you are a health care provider and have any questi ons regarding this report, please contact the number below. For patients w ho have questions please contact the health acute care physical therapist that requested your imaging first. Falguni Chung MD IMG CT ORDERABLES (ABNORMAL) Differential, Automated (06/28/2021 7:22 PM EDT) [employer] Method Time Signature Neutrophils % 68.7 % [facility] LABORATORY Neutr Abs (ANC) 7.38 (H) 1.70 - [facility] 6.10 [facility] x10(3)/[facility] LABORATORY Lymphocytes % 21.1 % [facility] LABORATORY Lymphocytes Abs 2.3 0.9 - 3.2 [facility] x10(3)/[facility] LABORATORY Monocytes % 8.2 % [facility] LABORATORY Monocyte Abs 0.9 0.3 - 0.9 [facility] x10(3)/[facility] LABORATORY Eosinophils % 1.2 % [facility] LABORATORY Eosinophils Abs 0.1 0.0 - 0.4 [facility] x10(3)/[facility] LABORATORY Basophils % 0.6 % [facility] LABORATORY Basophils Abs 0.1 0.0 - 0.1 [facility] x10(3)/[facility] LABORATORY Immature Gran % 0.20 % [facility] LABORATORY Comment: Immature granulocytes(IG's)percentage an d absolute count will include metamyelocytes, myelocytes, and promyelo cytes. Blood smears from CBCs yielding IG's will be scanned manually for concor dance. If this scan disagrees with the automated IG or if promyelocytes are not ed, a manual differential will be performed. Beba Gran Abs 0.02 0.00 - 0.04 x10(3)/[facility] LABORATORY Specimen Anatomical Collection Method Collection Time Receive d Time (Source) Location / / Volume Laterality Blood 06/28/2021 7:22 PM 2 7:30 EDT PM EDT Resulting Agency Comment Spec In Lab Falguni Chung MD HEMATOLOGY ORDERABLES Performing Organization Address City/[facility]/[place] [address] (ABNORMAL) Hemogram (06/28/2021 7:22 PM EDT) Analysis Performed At Patho logist Time Signature WBC 10.7 (H) 4.0 - 9.5 [facility] LABORATORY RBC 4.88 4.58 - [place] 5.54 [facility] x10(6)/[facility] LABORATORY Hemoglobin 14.3 13.7 - [facility] 16.5 g/dL [facility] LABORATORY Hematocrit 42.1 40.5 - [facility] 48.5 % [facility] LABORATORY MCV 86.3 82.9 - [facility] 93.1 [facility] LABORATORY MCH 29.3 27.5 - [place] 32.1 pg [facility] LABORATORY MCHC 34.0 32.0 - [facility] 35.7 g/dL [facility] LABORATORY Platelets 376 (H) 145 - 357 [facility] x10(3)/[facility] LABORATORY RDWSD 38.6 36.0 - [facility] 45.0 [facility] LABORATORY RDWCV 12.2 11.4 - [facility] 13.8 % [facility] LABORATORY MPV 9.7 7.6 - 12.9 [facility] nRBC % Auto 0.0 % [facility] LABORATORY nRBC Abs Auto 0.000 0.000 - [facility] 0.000 [facility] x10(3)/[facility] LABORATORY Specimen Anatomical Collection Method Collection Time Receive d Time (Source) Location / / Volume Laterality Blood 06/28/2021 7:22 PM 2 7:30 EDT PM EDT Resulting Agency Comment Spec In Lab Falguni Chung MD HEMATOLOGY ORDERABLES Performing Organization Address City/State/[place] [address] Basic Metabolic Panel (non-fasting) (06/28/2021 7:22 PM EDT) P athologist Signature Glucose Lvl 118 65 - 199 [facility] mg/dL [facility] LABORAT[facility] Comment: Diabetes: >=200 mg/dL plus symp toms BUN 17 10 - 20 mg/dL [facility] LABORATORY Creatinine 0.91 0.80 - 1.50 mg/dL [facility] LABORATORY Sodium 138 135 - 145 mmol/L [facility] LABORATORY Potassium 4.0 3.5 - 5.0 mmol/L [facility] LABORATORY Comment: Please note: ??Patients with WBC >100,00 0 may have falsely elevated Potassium levels. ??For accurate Potassium quantif ication in these patients send serum separator tube (gold top) for subsequent determinations. ??Contact the Clinical Chemistry Laboratory if there are any qu estions. Chloride 102 98 - 107 mmol/L [facility] LABORATORY CO2 22 22 - 31 mmol/L [facility] LABORATORY Anion Gap 14 5 - 15 mmol/L [facility] LABORATORY Calcium 9.4 8.5 - 10.5 mg/dL [facility] LABORATORY Estimated GFR 83 >=60 mL/min/1.73 m?? [facility] LABOR[facility] Comment: This patient? s estimated glomerular filtration rate (eGFR) is between 83 mL/min/1.73 m2 (patients with less muscl e mass per kg body weight) and 96 mL/min/1.73 m2 (patients with more muscl e [...] Location / / Volume Laterality Blood 06/28/2021 7:22 PM 7:30 EDT PM EDT Resulting Agency Comment Spec In Lab Falguni Chung MD CHEMISTRY ORDERABLES Performing Organization Address City/State/[place] [address] Film Library- Storage Only MR Head and [...] is for storage only. Myriam Riggins MD IMMilly FILM LIBRARY ORDERABLES documented in this encounter Visit Diagnoses Not on filedocumented in this encounter Admitting Diagnoses Diagnosis Brain lesion Other conditions of brain documented in this encounter Administered Medications Inactive Administered Medications - up to 3 most recent administrations Medication Order MAR Action Action Date Dose Rate Site atorvastatin (Lipitor) tablet 80 mg Given 07/07/2021 4:40 PM EDT 80 mg 80 mg, Oral, EVERY EVENING, First dose on Sun06/28/21 at 2140, Until Discontinued, Routine Given 07/06/2021 4:11 PM EDT 80 mg Given 07/05/2021 4:26 PM EDT 80 mg bacitracin zinc-polymyxin B Given 06/30/2021 12:10 PM 1 Tube 19- Surgical Site (Polysporin) ointment EDT ONCE PRN, Starting on Helen 06/30/21 at 1210, Until Helen 06/30/21 at 1517, Intra-Operative (Intra-Procedure) BUpivacaine (pf) (Marcaine) Given 06/30/2021 12:33 PM 10 mLs 19- Surgical Site (2.5 mg/mL) 0.25% injection EDT ONCE PRN, Starting on Sun06/30/21 at 1233, Until Sun06/30/21 at 1517, Intra-Operative (Intra-Procedure), Routine calcium carbonate (Tums) chewable tablet 500 Given 12:38 PM EDT 500 mg mg 500 mg, Oral, 3 TIMES DAILY PRN, Starting on Sun06/29/21 at 1159, Until Sun07/08/21 at 1446, Heartburn, Routine dexamethasone (Decadron) tablet 1 mg Given 07/08/2021 8:23 AM EDT 1 mg 1 mg, Oral, EVERY 12 HOURS SCHEDULED (2 times per day), 6 doses, First dose on Sun07/08/21 at 0900, Last dose on Sun07/10/21 at 2100, Routine dexamethasone (Decadron) tablet 1 mg 1 mg, Oral, DAILY, 3 doses, First dose on Sun07/11/21 a t 0900, Last dose on Sun07/13/21 at 0900, Routine gelatin compressed (Gelfoam) Given 06/30/2021 12:35 PM 100 cm 19- Surgical Site sponge EDT ONCE PRN, Starting on Sun06/30/21 at 1235, Until Sun06/30/21 at 1517, Intra-Operative (Intra-Procedure) heparin (porcine) (5,000 units/1 mL) Given 07/08/2021 5:09 AM ED T 5,000 Units subcutaneous injection 5,000 Units 5,000 Units, Subcutaneous, EVERY 8 HOURS SCHEDULED, First dose on Sun07/02/21 at 1400, Until Discontinued, Routine Given 07/07/2021 9:23 PM EDT 5,000 Units Given 07/07/2021 2:35 PM EDT 5,000 Units labetaloL (Normodyne) (5 mg/mL) injectio n solution 10-20 mg 10-20 mg, Intravenous, EVERY 15 MIN PRN, Starting on Sun06/30/21 at 1427, Until Sun07/08/21 at 1446, High Blood Pressure, SBP goal < 160, Routine levETIRAcetam (Keppra) tablet 1,000 mg Given 07/08/2021 8:23 AM EDT 1,000 mg 1,000 mg, Oral, 2 TIMES DAILY, First dose (after last modification) on Sun06/29/21 at 0900, Until Discontinued, Routine Given 07/07/2021 8:50 PM EDT 1,000 mg Given 07/07/2021 8:17 AM EDT 1,000 mg metoprolol tartrate (Lopressor) tablet 12.5 Given 06/11 8:23 AM EDT 12.5 mg mg 12.5 mg, Oral, EVERY 12 HOURS SCHEDULED (2 times per day), First dose (after last modification) on Sun07/05/21 at 2100, Until Discontinued, Hold for HR less than 60 or systolic BP less than 100, Routine Given 07/07/2021 8:49 PM EDT 12.5 mg Given 07/07/2021 8:17 AM EDT 12.5 mg nicotine (Nicoderm CQ) Patch Applied 06/30/2021 8:11 AM 21 mg 10- Arm Upper 21 mg/24 hr patch 21 mg EDT (Right) 21 mg (1 patch), Transdermal, DAILY, First dose on Sun06/29/21 at 1445, Until Discontinued, Apply new patch to nonhairy, clean, dry skin on the upper body or upper outer arm; each patch should be applied to a different site , Routine Patch Applied 06/29/2021 3:06 PM EDT 21 mg 09- Arm Upper (Left) nicotine (NICODERM CQ) 21 mg/24 hr patch Patch Removal Transdermal, DAILY, First dose on Sun at 0900, Until Discontinued, Remove nicotine 21 mg/24 hr patch nicotine (NICODERM CQ) 21 mg/24 hr patch Patch Verification Transdermal, 2 TIMES DAILY, First dose o n Sun06/30/21 at 0200, Until Discontinued, Verify nicotine 21 mg/24 hr patch pantoprazole EC (Protonix) tablet 40 mg Given 07/08/2021 8:23 AM EDT 40 mg 40 mg, Oral, DAILY, First dose on Sun06/28/21 at 2241, Until Discontinued, DO NOT CRUSH OR OPEN, Routine Given 07/07/2021 8:17 AM EDT 40 mg Given 07/06/2021 8:35 AM EDT 40 mg polyethylene glycoL (Miralax) packet 17 g Given 07/03/2021 3:20 PM EDT 17 g 17 g, Oral, DAILY, First dose (after last modification) on 07/03/21 at 1600, Until Discontinued, Routine senna-docusate (Pericolace) 8.6-50 mg per Given 2021 10:08 PM EDT 2 tablets tablet 2 tablet 2 tablet, Oral, 2 TIMES DAILY PRN, Starting on Sun07/03/21 at 1509, Until Sun07/08/21 at 1446, Constipation, Routine sodium chloride 0.9 % (flush) (BD PosiFlush Given 07/08/2021 8:2 4 AM EDT 5 mLs Normal Saline 0.9) flush 5 mL 5 mL, Intravenous, 2 TIMES DAILY, First dose on Sun06/29/21 at 0100, Until Discontinued, Routine Given 07/07/2021 9:24 PM EDT 5 mLs Given 07/07/2021 8:18 AM EDT 5 mLs sodium chloride tablet 1 g Given 07/08/2021 8:23 AM EDT 1 g 1 g, Oral, 3 TIMES DAILY, First dose on 07/02/21 at 1545, Until Discontinued, Routine Given 07/07/2021 8:49 PM EDT 1 g Given 07/07/2021 2:34 PM EDT 1 g thrombin (Bovine) Given 06/30/2021 12:35 PM 20,000 Units 19- Surgical Site (Thrombinar) kit EDT ONCE PRN, Starting on Helen 06/30/21 at 1235, Until Helen 06/30/21 at 1517, Intra-Operative (Intra-Procedure) documented in this encounter Active and Recently Administered Medications Times are shown in EDT. Scheduled Medication Order 07/06/2021 07/07/2021 07/08/2021 atorvastatin (Lipitor) tablet 80 mg 1611 (Given - Prov ider: Brandi Romano RN) 1640 (Given - Provider: Nicole Basurto RN) 80 mg, Oral, EVERY EVENING, First dose o n 06/28/21 at 2140, Until Discontinued, Routine dexamethasone (Decadron) tablet 1 mg(Linked Group 1) 0823 (Given - Provider: Brandi Romano RN) 1 mg, Oral, EVERY 12 HOURS SCHEDULED (2 times per day), 6 doses, First dose on Sun07/08/21 at 0900, Last dose on Sun07/10/21 at 2100, Routine dexamethasone (Decadron) tablet 1 mg(Linked Group 1) 1 mg, Oral, DAILY, 3 doses, First dose o n 07/11/21 at 0900, Last dose on Sun07/13/21 at 0900, Routine dexamethasone (Decadron) tablet 2 mg (COMPLETED)(Linke d Group 1) 0834 (Given - Provider: Stephanie Carey RN)2104 (Given - Provider: Isela Knott RN) 816 (Given - Provider: Nicole Basurto , SHELBIE)2048 (Given - Provider: Isela Knott RN) 2 mg, Oral, EVERY 12 HOURS SCHEDULED (2 times per day), 6 doses, First dose on Sun07/05/21 at 0900, Last dose on Sun07/07/21 at 2100, Routine heparin (porcine) (5,000 units/1 mL) subcutaneous inje ction 5,000 Units 0513 (Given - Provider: Juan Garcia RN)141 (Given - Provider: Stephanie Carey RN)2107 (Given - Provider: Isela Knott RN) 0556 (Given - Provider: Isela Knott RN)143 (Given - Provider: Nicole Basurto, SHELBIE)2122 (Given - Provider: Isela Knott, SHELBIE) 0509 (Given - Provider: Isela Knott, SHELBIE) 5,000 Units, Subcutaneous, EVERY 8 HOURS SCHEDULED, First dose on 07/02/21 at 1400, Until Discontinued, Routine levETIRAcetam (Keppra) tablet 1,000 mg 0834 (Given - P rovider: Stephanie Carey RN)2104 (Given - Provider: Isela Knott RN) 08 (Given - Provider: Nicole Basurto, SHELBIE)2049 (Given - Provider: Isela Knott RN) 08 (Given - Provider: Brandi blackmon RN) 1,000 mg, Oral, 2 TIMES DAILY, First dos e (after last modification) on Sun06/29/21 at 0900, Until Discontinued, Routine metoprolol tartrate (Lopressor) tablet 12.5 mg 0834 (G iven - Provider: Stephanie Carey RN)2104 (Given - Provider: Isela Knott, SHELBIE) 08 (Given - Provider: Nicole Basurto, SHELBIE)2048 (Given - Provider: Isela Knott RN) 0823 (Given - Provider: Brandi blackmon RN) 12.5 mg, Oral, EVERY 12 HOURS SCHEDULED (2 times per day), First dose (after last modification) on Sun07/05/21 at 2100, Until Discontinued, Hold for HR less than 60 or systolic BP less than 100, Routine nicotine (Nicoderm CQ) 21 mg/24 hr patch 21 mg(Linked Group 2) 0900 (Not Given - Provider: Stephanie Carey RN - Reason: Patient/family refused) 09 (Not Given - Provider: Nicole Basurto RN - Reason: Patient/family refused) 0823 (Not Given - Provider: Brandi Romano RN - Reason: Patient/family refused) 21 mg (1 patch), Transdermal, DAILY, Fir st dose on Sun06/29/21 at 1445, Until Discontinued, Apply new patch to nonhairy, clean, dry skin on the upper body or upper outer arm; each patch should be applied to a different site , Routine nicotine (NICODERM CQ) 21 mg/24 hr patch Patch Removal (Linked Group 2) 09 (Patch Not Removed (add comment) - Provider: Stephanie Carey RN - Comment: not wearing patch) 0900 (Patch Not Removed (add comment) - Provider: Nicole Basurto RN - Comment: no patch) 0824 (Patch Not Removed (add comment) - Provider: Brandi Romano RN - Comment: none in place) Transdermal, DAILY, First dose on Sun at 0900, Until Discontinued, Remove nicotine 21 mg/24 hr patch nicotine (NICODERM CQ) 21 mg/24 hr patch Patch Verific ation(Linked Group 2) 0900 (Patch Not Verified (add comment) - Provider: Stephanie Carey RN - Comment: not wearing patch)2100 (Patch Not Verified (add comment) - Provider: Isela Knott, RN - Comment: pt doesn't want the patch) 0900 (Patch Not Verified (add comment) - Provider: Nicole Basurto, SHELBIE - Comment: no patch)2100 (Patch Not Verified (add comment) - Provider: Isela Knott, RN - Comment: no patch present) 0824 (Patch Not Verified (add comment) - Provider: Brandi Romano, SHELBIE - Comment: none in place) Transdermal, 2 TIMES DAILY, First dose o n Helen 06/30/21 at 0200, Until Discontinued, Verify nicotine 21 mg/24 hr patch pantoprazole EC (Protonix) tablet 40 mg 0835 (Given - Provider: Stephanie Carey RN) 0817 (Given - Provider: Nicole Basurto, SHELBIE) 0823 (Gi kory - Provider: Brandi Romano, SHELBIE) 40 mg, Oral, DAILY, First dose on Sun at 2241, Until Discontinued, DO NOT CRUSH OR OPEN, Routine polyethylene glycoL (Miralax) packet 17 g 0900 (Not Gi kory - Provider: Stephanie Carey RN - Reason: Patient/family refused) 0900 (Not Given - Provider: Nicole Basurto RN - Reason: Patient/family refused) 0823 (Not Given - Provider: Brandi Romano, SHELBIE - Reason: Patient/family refused) 17 g, Oral, DAILY, First dose (after las t modification) on Sun07/03/21 at 1600, Until Discontinued, Routine sodium chloride 0.9 % (flush) (BD PosiFlush Normal Rik ine 0.9) flush 5 mL 0835 (Given - Provider: Stephanie Carey RN)2108 (Given - Provider: Isela Knott, SHELBIE) 08 (Given - Provider: Nicole Basurto , SHELBIE)2123 (Given - Provider: Isela Knott, RN) 0824 (Given - Provider: Brandi Romano, SHELBIE) 5 mL, Intravenous, 2 TIMES DAILY, First dose on Sun06/29/21 at 0100, Until Discontinued, Routine sodium chloride tablet 1 g 0834 (Given - Provider: Christofer Carey, RN)1418 (Given - Provider: Stephanie Carey, RN)2105 (Given - Provider: Isela Knott, SHELBIE) 0817 (Given - Provider: Nicole Basurto , SHELBIE)1434 (Given - Provider: Nicole Basurto, RN)204 (Given - Provider: Isela Knott, SHELBIE) 0823 (Given - Provider: Brandi blackmon RN) 1 g, Oral, 3 TIMES DAILY, First dose on 07/02/21 at 1545, Until Discontinued, Routine PRN Medication Order 07/06/2021 07/07/2021 07/08/2021 acetaminophen (Tylenol) tablet 975 mg 975 mg, Oral, EVERY 8 HOURS PRN, Startin g on Sun06/29/21 at 0001, Until Sun07/08/21 at 1446, Pain, Fever, Administer for temperature greater than or equal to 38.2 degrees celsius. Maximum daily dose of acetaminophen from all sources not to ex ceed 4,000 mg. When ordered for pain, acetaminophen should be given even when other ordered pain medications are indicated., Routine calcium carbonate (Tums) chewable tablet 500 mg 500 mg, Oral, 3 TIMES DAILY PRN, Startin g on Sun06/29/21 at 1159, Until Sun07/08/21 at 1446, Heartburn, Routine labetaloL (Normodyne) (5 mg/mL) injection solution 10-20 mg 10-20 mg, Intravenous, EVERY 15 MIN PRN, Starting on Helen 06/30/21 at 1427, Until Sun07/08/21 at 1446, High Blood Pressure, SBP goal < 160, Routine senna-docusate (Pericolace) 8.6-50 mg per tablet 2 tablet 2 tablet, Oral, 2 TIMES DAILY PRN, Start ing on Sun07/03/21 at 1509, Until Sun07/08/21 at 1446, Constipation, Routine sodium chloride 0.9 % (flush) (BD PosiFlush Normal Saline 0.9) f lush 5-20 mL 5-20 mL, Intravenous, EVERY 1 MIN PRN, S tarting on Sun06/29/21 at 0001, Until Sun07/08/21 at 1446, flush, Flush pertains to all indwelling lines. Flush per protocol found in the job aid using the link provided on this medication record., Routine Linked Groups Order Group 1: dexamethasone (Decadron) tablet 4 mg (COMPLETED) 4 mg, Oral, EVERY 12 HOURS SCHEDULED (2 times per day), 5 doses, First dose on Sun07/02/21 at 2100, Last dose on Sun07/04/21 at 2100, Routine Followed by dexamethasone (Decadron) tablet 2 mg (COMPLETED)Jump to med 2 mg, Oral, EVERY 12 HOURS SCHEDULED (2 times per day), 6 doses, First dose on Sun07/05/21 at 0900, Last dose on Sun07/07/21 at 2100, Routine Followed by dexamethasone (Decadron) tablet 1 mgJump to med 1 mg, Oral, EVERY 12 HOURS SCHEDULED (2 times per day), 6 doses, First dose on Sun07/08/21 at 0900, Last dose on Sun07/10/21 at 2100, Routine Followed by dexamethasone (Decadron) tablet 1 mgJump to med 1 mg, Oral, DAILY, 3 doses, First dose o n Sun07/11/21 at 0900, Last dose on Sun07/13/21 at 0900, Routine Group 2: nicotine (Nicoderm CQ) 21 mg/24 hr patch 21 mgJump to med 21 mg (1 patch), Transdermal, DAILY, Fir st dose on Sun06/29/21 at 1445, Until Discontinued
Apply new patch to nonhairy, clean, dry skin on the upper body or upper outer arm; each patch should be applied to a different site
Routine And nicotine (NICODERM CQ) 21 mg/24 hr patch Patch VerificationJump to med Transdermal, 2 TIMES DAILY, First dose o n Sun06/30/21 at 0200, Until Discontinued
Verify nicotine 21 mg/24 hr patch
And nicotine (NICODERM CQ) 21 mg/24 hr patch Patch RemovalJump to med Transdermal, DAILY, First dose on Sun at 0900, Until Discontinued
Remove nicotine 21 mg/24 hr patch
documented in this encounter Care Teams Merchandise Manager Relationship Specialty Start Date End Date Myriam Riggins MD PCP - General Family Medicine 06/28/21 [address] [place] [address] documented as of this encounter
--- OUTSIDE RECORDS SUMMARY | 2021-09-07 15:37 | XMS_ITS | Encounter Summary ---
:1945 Author Organization [facility] [place] [address] Care Team Providers Name Role Phone Myriam Riggins MD Primary Care Provider Encounter Details Date Type Department Care Team Description 06/29/2021 Telephone Pulmonology at [facility] [place] [address] Social History Tobacco Use Types Packs/Day [...] this encounter Miscellaneous Notes Telephone Encounter - Shayy Hernandez - 06/29/2021 8:48 AM EDT want to know about a biopsy on this pt. pls call documented in this encounter Plan of Treatment Upcoming Encounters Date Type Specialty Care Team Description 09/13/2021 Hospital Encounter Radiology Curtis Laura MD [facility] [place] [address] (Wo rk) 10/07/2021 Office Visit Neurology Wally Chow MD [facility] ER NEUROLOGY [place], [place] [address] (Wo rk) documented as of this encounter Visit Diagnoses Not on filedocumented in this encounter Care Teams Offset Plate Maker Relationship Specialty Start Date End Date Myriam Riggins MD PCP - General Family Medicine 06/28/[address] [place] [address] documented as of this encounter
--- OUTSIDE RECORDS SUMMARY | 2021-09-07 15:37 | XMS_ITS | Encounter Summary ---
:1945 Author Organization [facility] [place] [address] Care Team Providers Name Role Phone Myriam Riggins MD Primary Care Provider Reason for Referral Consultation (Routine) - Authorized Specialty Diagnoses / Procedures Referred By Contact Refer red To Contact Diagnoses Metastatic cancer to brain [place] [address] Referral ID Status Reason Start Date Expiration Visits Visits Date Requested Authorized [id number] Authorized Consult, 07/08/2021 01/04/2022 1 1 Test & Treat onsultation (Routine) - Authorized Specialty Diagnoses / Procedures Referred By Contact Refer red To Contact Diagnoses Metastatic cancer to [place] [address] Referral ID Status Reason Start Date Expiration Visits Visits Date Requested Authorized [id number] Authorized Consult, 07/08/2021 01/04/2022 1 1 Test & Treat Reason for Visit Reason Comments Brain Tumor Auth/Cert Specialty Diagnoses / Procedures Referred By Contact Refer red To Contact Diagnoses Brain lesion Procedures emerg ipi Referral ID Status Reason Start Date Expiration Date Visits Requ ested Visits Authorized [id number] 1 1 Encounter Details Date Type Department Care Team Description 06/28/2021 - Hospital Encounter 5 Doug Dunn Marcus Jeffers MD [facility] [place] [address] Brain lesion (Primary Dx); 07/08/2021 [facility] [place] [address] Metastatic cancer to brain; [facility] Mary Lemus MD [facility] [place] [address] [facility] [place] [address] [place] [id number] Social History Tobacco Use Types Packs/Day Years [...] Sign Reading Time Taken Comments Blood Pressure 138/75 07/08/2021 7:25 AM EDT Pulse 50 07/08/2021 4:02 AM EDT Temperature 36.7 ??C (98.1 ??F) 07/08/2021 7:25 AM EDT Respiratory Rate 16 07/08/2021 7:25 AM EDT Oxygen Saturation 94% 07/08/2021 7:25 AM EDT Inhaled Oxygen Concentration - - Weight 75.8 kg (167 lb 1.7 oz) 07/04/2021 5:49 AM EDT Height 177.8 cm (5' 10) 07/04/2021 5:49 AM EDT Body Mass Index 23.98 07/04/2021 5:49 AM EDT documented in this encounter Discharge Summaries Benita Leblanc MD - 07/08/2021 9:18 AM EDT [facility] Discharge Summary Patient Name: Betsy Laird [...] to include CAD s/p 4vCABG ~2019 @ [facility], tobacco use disorder in recent remission 5 [...] showed multilevel degenerative disease. He presented to [facility] yesterday where he underwent an MRI brain and C-spine that showed multiple intracranial lesions concerning for metastasis. He then presented to [facility] ED this afternoon. Associated symptoms include intermittent [...] daughter. Retired 3 years ago, worked [employer] in many roles over the years [...] so never un derwent repeat. Saw a dynamotor repairer last 3 years ago but was stable s/p CABG so did not return and PCP has taken over cardiac care. [facility] ED: V/S: Afebrile, heart rate 70s, mildly [...] INTRADURAL (WRVU 3.75) MICROSCOPE USE (WRVU 3.46) MODIFIER,Uni2 3 W/O [employer],CRANI/SPINE ONLY Other Major Procedures: None Allergies: Allergies [...] CT HEAD WO CONTRAST (GENERIC) CLINICAL HISTORY: WELCOME CENTER AGENT metastatic lesions suspected, initial workup; progressive right sided weakness r/o mets/bleed TECHNIQUE: CT head performed without intravenous contrast administration. COMPARISON: Brain MRI 06/28/2021 FINDINGS: There is a large peripherally hyperdense mass within the superior left frontal lobe which measures 3 x 2.7 x 2.6 cm in size withcentral low attenuation. There is extensive surrounding vasogenic edema and local mass effect, with mild vzzw-ek-bjkor subfalcine herniation, and effacement of the anterior left lateral ventricle thereis minimal 3 mm zjxf-dm-dkpnx midline shift measured at the foramen of [...] who have questions please contact the health summer child caregiver that requested your imaging first. Electronically signed by: Derrick Suresh MD, [facility] ), at 06/28/2021 8:03 PM MRI Brain wwo Contrast (Generic) Result Date: 07/01/2021 EXAMINATION: MRI BRAIN WWO CONTRAST (GENERIC) CLINICAL HISTORY: Brain/WELCOME CENTER AGENT neoplasm, assess treatmentresponse F/u s/p crani for [...] who have questions please contact the health summer child caregiver that requested your imaging first. Chest PA [...] who have questions please contact the health summer child caregiver that requested your imaging first. Film Library- [...] who have questions please contact the health summer child caregiver that requested your imaging first. OBIOLOGY Microbiology Results (Last 30 days) Procedure Component Value Units Date/Time COVID-19 PCR [[id number]] Collected: 07/05/21 1322 Lab Status: Final result [...] using the Simplexa COVID-19 Direct Assay by [employer] as authorized by the FDA issued Emergency [...] Department of Pathology and Laboratory Medicine at [facility], certified under the Clinical Laboratory Improvement Amendments [...] fact sheets at the following FDA website: https://www.fda.gov/medical-devices/akmzuafwjtx-mowjjaf-8864-qswqm-24-chcmvzmwo- fjp-blwwfdnyjqkina-caemmtu-devices/zyxdd-opchvlzuybq-ahrs SARS-CoV-2 Source AUTOMOTIVE WINDOW TINTER Swab COVID-19 PCR [[id number]] Collected: 06/28/212102 Lab Status: Final result Specimen: Nasopharyngeal Swab Updated: 06/28/21 1120 SARS-CoV-2 RNA PCR Not Detected Comment: This [...] using the Simplexa COVID-19 Direct Assay by [employer] as authorized by the FDA issued Emergency [...] Department of Pathology and Laboratory Medicine at [facility], certified under the Clinical Laboratory Improvement Amendments [...] fact sheets at the following FDA website: https://www.fda.gov/medical-devices/opllhkptitg-wmplxux-2550-fkcwo-61-odckooosd- rla-croucdocumlblo-jifopss-devices/cnomw-cwaxplhekrs-fjau SARS-CoV-2 Source AUTOMOTIVE WINDOW TINTER Swab Condition on Discharge Discharge Conditions/Prognosis: Upon [...] to the brain lesions. This is called keppra. You will follow up with the neurology [...] Center 08/02/2021 11:00 AM Estefania Justice MD [facility] [id number] [facility] Your Inpatient Doctor: Benita Leblanc MD Your Primary Care Provider: Myriam Riggins MD [phone] For questions regarding this document or issues relating to this hospitalization on the Medical Service, please contact your inpatient physician through the [facility] Solid Waste Management Engineer . Issues after hours and on weekends will be handled by the Hospitalist staff on-call. General Instructions None Future Appointments and Orders Future Appointments and Orders Future Appointments Provider Department Dept Phone 08/02/2021 11:00 AM Estefania Justice MD Neurosurgery at [facility] Arrive at: Home [phone] Please do not come in for this [...] on keppra ppx Referral to Palliative Care [[id number] Custom] As directed Process Instructions: If no progress note charted, please enter Clinical details in comments. Scheduling Instructions: Questions: My question or request is: newly diagnosed metastatic cancer to the brain and a right hilar mass, s/p crani for brain biopsy, now awaiting results and treatment options Provider Contact Information: Myriam Riggins MD [address] [place] [address] [address] Discharge References/Attachments: Discharge References/Attachments None Time taking care of discharge including coordination and plan of care was more than 30 minutes. Signed: Benita Leblanc MD 07/08/2021 9:48 AM documented in this encounter Discharge Instructions Discharge InstructionsFlory Ambrosio [facility] - 07/08/2021 10:43 AM EDT YOU ARE [...] to the brain lesions. This is called keppra. You will follow up with the neurology [...] Center 08/02/2021 11:00 AM Estefania Justice MD [facility] [id number] [facility] Your Inpatient Doctor: Benita Leblanc MD Your Primary Care Provider: Myriam Riggins MD [phone] For questions regarding this document or issues relating to this hospitalization on the Medical Service, please contact your inpatient physician through the [facility] Solid Waste Management Engineer . Issues after hours and on weekends [...] 07/08/2021 11:55 AM EDT Office of Care Management(OCM)/Upsetter Helper(RS) Patient Name: Betsy Laird : 1945 Patient has been offered a Rehab bed at [facility]. Daughter will transport patient at 12:00 No MD to MD report necessary: Please call Nursing Report to [phone], ask for teacher nursery school. Info to accompany patient: Narcotic Prescriptions Copies of Medication Administration Records and IV sheets for past two weeks. Plan: Upsetter Helper will be available to the patient and Revenue Analyst for further assistance. Patient will be discharged to: [facility] [place] Upsetter Helper Benita Leblanc MD - 07/08/2021 9:16 AM [...] Plans ? Discharge to acute rehab at [facility]. ? Follow-up scheduled with PCP, Neurosurgery. Follow-up to be arranged with Oncology, Radiation Oncology, Palliative care, and Neurology. ? Please see the Discharge Summary for complete details of any medication changes and additional plans. Benita Leblanc MD - 07/07/2021 9:42 PM EDT [facility] Medicine Attending Daily Progress Note Patient Name: [...] BMP: Recent Labs 07/07/21 1820 07/07/21 0614 07/06/21 1827 NA 134* 130* 133* K 4.4 4.8 4.7 CL 98 97* 96* CO2 24 24 25 BUN 27* 24* 29* CREATININE 0.89 0.84 0.92 GLUCOSE 146 99 120 Calcium, Magnesium, Phosphate: Recent Labs 07/07/21 1820 07/07/21 0614 07/06/21 1827 07/06/21 0623 07/05/21 1841 07/05/21 0600 CALCIUM 8.6 [...] hours. ABG: No results for input(s): PHART, LDI3UMF, PO2ART, RJK5BNS in the last 168 hours. Coags: Recent Labs 06/28/21 2138 PT 12.3 PTT 33 INR 1.1 MICRO Microbiology Results (Last 30 days) Procedure Component Value Units Date/Time COVID-19 PCR [[id number]] Collected: 07/05/21 1322 Lab Status: Final result [...] using the Simplexa COVID-19 Direct Assay by [employer] as authorized by the FDA issued Emergency [...] Department of Pathology and Laboratory Medicine at [facility], certified under the Clinical Laboratory Improvement Amendments [...] fact sheets at the following FDA website: https://www.fda.gov/medical-devices/fekuuubqmie-ijnpfon-9199-flcio-19-ldegwhdwu- jez-lvrpqmphhlrboz-diiusun-devices/nuusx-soqjstvlcod-nxls SARS-CoV-2 Source AUTOMOTIVE WINDOW TINTER Swab COVID-19 PCR [[id number]] Collected: 06/28/212102 Lab Status: Final result Specimen: Nasopharyngeal Swab Updated: 06/28/21 2699 SARS-CoV-2 RNA PCR Not Detected Comment: This [...] using the Simplexa COVID-19 Direct Assay by [employer] as authorized by the FDA issued Emergency [...] Department of Pathology and Laboratory Medicine at [facility], certified under the Clinical Laboratory Improvement Amendments [...] fact sheets at the following FDA website: https://www.fda.gov/medical-devices/lyfqgvedihe-zzhdizr-8849-nnfov-62-sjhuzjwbb- sgn-qdzsptjvcezoyd-kqvhxwk-devices/draaq-jrkdqnokcri-kjae SARS-CoV-2 Source AUTOMOTIVE WINDOW TINTER Swab RECENT IMAGING None in past 24 hours. Signed: Benita Leblanc MD 07/07/2021 9:42 PM Hospital Medicine Team Pager: [phone] IPI Certification I certify that I am a D-H credentialed attending provider with admitting privileges and that the patient meets or has met medical necessity to require an inpatient IPI level of care meeting a minimum of two midnights or is on the [facility] inpatient only procedure list (status C) due to: Vasogenic edema with metastatic malignancy, seizure disorder, and neurological deficits requiring ongoing EEG monitoring, and surgical intervention of brain malignancy Benita Leblanc MD - 07/06/2021 9:34 PM EDT [facility] Medicine Attending Daily Progress Note Patient Name: [...] Behavior: Behavior normal. LABS CBC: Recent Labs 07/06/2162207/05/21 0600 07/04/21 0628 WBC 15.2* 13.9* 12.7* HGB 13.6* 13.1* 13.5* PLATELET 369* 344 335 BMP: Recent Labs 07/06/21182607/06/2123 07/05/21 1841 NA 133* 131* 131* K 4.7 4.6 4.5 CL 96* 94* 97* CO2 25 24 22 BUN 29* 24* 23* CREATININE 0.92 0.92 0.94 GLUCOSE 120 99 133 Calcium, Magnesium, Phosphate: Recent Labs 07/06/21182607/06/2123 07/05/21 1841 07/05/21 0600 07/04/21 1258 07/04/21 [...] hours. ABG: No results for input(s): PHART, ZYG6ACQ, PO2ART, EPD5MGA in the last 168 hours. Coags: Recent Labs 06/28/21 2138 PT 12.3 PTT 33 INR 1.1 MICRO Microbiology Results (Last 30 days) Procedure Component Value Units Date/Time COVID-19 PCR [[id number]] Collected: 07/05/21 1322 Lab Status: Final result Specimen: Nasopharyngeal Swab Updated: 07/05/21 161 SARS-CoV-2 RNA PCR Not Detected Comment: This [...] using the Simplexa COVID-19 Direct Assay by [employer] as authorized by the FDA issued Emergency [...] Department of Pathology and Laboratory Medicine at [facility], certified under the Clinical Laboratory Improvement Amendments [...] fact sheets at the following FDA website: https://www.fda.gov/medical-devices/dhlyakxmyeo-wozgllq-7627-ffmsb-00-zikpmjokr- xug-vejmxhyehqgujz-mnxkllc-devices/bupgp-qtynytomwuw-odkk SARS-CoV-2 Source AUTOMOTIVE WINDOW TINTER Swab COVID-19 PCR [[id number]] Collected: 06/28/212102 Lab Status: Final result Specimen: [...] using the Simplexa COVID-19 Direct Assay by [employer] as authorized by the FDA issued Emergency [...] Department of Pathology and Laboratory Medicine at [facility], certified under the Clinical Laboratory Improvement Amendments [...] fact sheets at the following FDA website: https://www.fda.gov/medical-devices/yafjjkoisrr-qhwapcx-1073-fklyt-79-hnemsffjv- ooq-axprkguehuntrd-aqvtvvi-devices/gvkiq-iiazcatalvf-qbll SARS-CoV-2 Source AUTOMOTIVE WINDOW TINTER Swab RECENT IMAGING None in past 24 hours. 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 Pt [...] for doffing socks ? Pt CGA for donning hospital pants at standing level; only on [...] dysarthria when speaking quickly ? Vision: Glasses full stack php developer ? Vitals: Within parameters ? Strength/ROM: ? RUE /; marked improvements with poultry raiser strength this date ? LUE 07/14 ?? [...] Minutes, Occupational Therapy: 40 (2 SC) Pager: [phone] Radha Gramajo OT Occupational Therapy Rehabilitation Department [...] admitted on 06/28/2021 by Teena Armas to [facility] ED with R sided weakness progressed over a month with R foot drop and MRI of brain c/w metastatic brain cancer and referred to [facility]. ??MRI of his lumbar spine which showed [...] cell PMH: CAD s/p 4vCABG ~2019 @ [facility], tobacco use disorder in recent remission 5 days ago (58 pk/yr history). Interval History: 07/01 Palliative consult to discuss Dx & care: He's enthusiastic about meeting with the oncology and palliaitve teams at the [facility] in [facility]. He has strong [...] in place. Social History: Lives alone in [place], [place] in a one level home with [...] DF and PF R foot: given ankle [place] ex in addition to tapping & pushing [...] Physical Therapy: 35 (TE-F x 2) DEXTER EMMANUEL, PT Pager: [phone] Physical Therapy Inpatient Rehabilitation Department Juan Garcia RN - 07/06/2021 12:55 AM EDT OUTCOME EVALUATION NOTE: OUTCOME SUMMARY: Pt A+Ox4. VSS on RA. Bradycardic overnight. No complaints of pain. 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 Neuro checks unchanged. Voiding in urinal overnight. [...] Leblanc MD - 07/05/2021 7:59 PM EDT [facility] Medicine Attending Daily Progress Note Patient Name: [...] hours. ABG: No results for input(s): PHART, CLD9EWG, PO2ART, BIJ5CZV in the last 168 hours. Coags: Recent Labs 06/28/21 2138 PT 12.3 PTT 33 INR 1.1 MICRO Microbiology Results (Last 30 days) Procedure Component Value Units Date/Time COVID-19 PCR [[id number]] Collected: 07/05/21 1322 Lab Status: Final result [...] using the Simplexa COVID-19 Direct Assay by [employer] as authorized by the FDA issued Emergency [...] Department of Pathology and Laboratory Medicine at [facility], certified under the Clinical Laboratory Improvement Amendments [...] fact sheets at the following FDA website: https://www.fda.gov/medical-devices/ymszagpkvbq-psmssnz-6653-rzfoe-00-xixykcphr- ffu-kddzhzbhvtcqnq-enwxnci-devices/cehor-emypdrpgojj-zjwv SARS-CoV-2 Source AUTOMOTIVE WINDOW TINTER Swab COVID-19 PCR [[id number]] Collected: 06/28/212102 Lab Status: Final result Specimen: [...] diagnosis of COVID-19 is performed using the [employer] COVID-19 Direct Assay by [employer] as authorized by the FDA issued Emergency [...] Department of Pathology and Laboratory Medicine at [facility], certified under the Clinical Laboratory Improvement Amendments [...] fact sheets at the following FDA website: https://www.fda.gov/medical-devices/rebhsnfcxbs-qrpqayf-3572-ivpmd-18-uhcvaokno- xxg-poydldcbhvkxnl-opbpalj-devices/bcuza-feihyfcmymf-qxku SARS-CoV-2 Source AUTOMOTIVE WINDOW TINTER Swab RECENT IMAGING None in past 24 hours. Signed: Benita Leblanc MD 07/05/2021 8:05 PM Hospital Medicine Team Pager: [phone] IPI Certification I certify that I am a D-H credentialed attending provider with admitting privileges and that the patient meets or has met medical necessity to require an inpatient IPI level of care meeting a minimum of two midnights or is on the [facility] inpatient only procedure list (status C) due [...] Leblanc MD - 07/04/2021 5:29 PM EDT [facility] Medicine Attending Daily Progress Note Patient Name: [...] Intake/Output Summary (Last 24 hours) at 07/04/2021 9184 Last data filed at 07/04/2021 1700 Gross [...] hours. ABG: No results for input(s): PHART, ITH5VBL, PO2ART, OPT5TNH in the last 168 hours. Coags: Recent Labs 06/28/212137 PT 12.3 PTT 33 INR 1.1 MICRO Microbiology Results (Last 30 days) Procedure Component Value Units Date/Time COVID-19 PCR [[id number]] Collected: 06/28/212102 Lab Status: Final result Specimen: [...] using the Simplexa COVID-19 Direct Assay by [employer] as authorized by the FDA issued Emergency [...] Department of Pathology and Laboratory Medicine at [facility], certified under the Clinical Laboratory Improvement Amendments [...] fact sheets at the following FDA website: https://www.fda.gov/medical-devices/zjshjlceorr-sqbtvml-3830-aixnl-08-uxuxjynbo- uyc-tnajekwfrnfwtd-ovvemfe-devices/edhcg-yfdrzwqcaia-rtpb SARS-CoV-2 Source AUTOMOTIVE WINDOW TINTER Swab RECENT IMAGING None in past 24 hours. Signed: Benita Leblanc MD 07/04/2021 5:37 PM Hospital Medicine Team Pager: [phone] IPI Certification I certify that I am a D-H credentialed attending provider with admitting privileges and that the patient meets or has met medical necessity to require an inpatient IPI level of care meeting a minimum of two midnights or is on the [facility] inpatient only procedure list (status C) due to: Vasogenic edema with metastatic malignancy, seizure disorder, and neurological deficits requiring ongoing EEG monitoring, and surgical intervention of brain malignancy Andrew Monroe MD - 07/04/2021 5:24 PM EDT [facility] Neurosurgery Brief Update Sodium stabilized now eunatremic x2. Recs: -Can resume home ASA 2 wks post op -Sterling due 2 wks post op -Cont salt tabs for now can wean over the next 1-2 wks -Can wean checking Na to daily or every other day -Follow up as schedule below with us Future Appointments Date Time Provider Department Center 08/02/2021 11:00 AM Estefania Justice MD [facility] [id number] [facility] Consult service will continue to follow patient. ??X We're signing off. Recommendations above, page if further consultation required. 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 Pt [...] dysarthria when speaking quickly ?? Vision: Glasses full stack php developer ?? Vitals: Within parameters ?? Strength/ROM: ?? RUE 4-/5; increased functional use, but continues with difficulty with poultry raiser at times ?? LUE 5/5 Pain: No [...] Minutes, Occupational Therapy: 32 (2 SC) Pager: [phone] Radha Gramajo, OT Occupational Therapy Rehabilitation Department Dexter Emmanuel, PT - 07/04/2021 4:24 PM EDT Physical Therapy Note Treatment Number PT: 3 Patient profile: Betsy Laird is a 75 y.o. male admitted on 06/28/2021 by Teena Armas to [facility] ED with R sided weakness progressed over a month with R foot drop and MRI of brain c/w metastatic brain cancer and referred to [facility]. ??MRI of his lumbar spine which showed [...] cell PMH: CAD s/p 4vCABG ~2018 @ [facility], tobacco use disorder in recent remission 5 days ago (58 pk/yr history). Interval History: 07/01 Palliative consult to discuss Dx & care: He's enthusiastic about meeting with the oncology and palliaitve teams at the [facility] in [facility]. He has strong social support, good coping skills, and an excellent understanding of his illness and prognosis. He's agreeable to acute rehab prior to return home for more return R side and independence. Social History: Lives alone in [place], [place] in a one level home with [...] Pain: denies Vital Signs: HR=68 SpO2=95% RA WA=221/75 ?? Patient up in recliner chair, daughter [...] Minutes, Physical Therapy: 35 (TE-F x 2) DETXER EMMANUEL, PT Pager: [phone] Physical Therapy Inpatient Rehabilitation Department Maranda Teresa RN - 07/04/2021 3:40 PM EDT Based on discussions with the multi-disciplinary healthcare team, the patient would benefit from acute rehab level of care at discharge. I have met with the patient to discuss discharge planning needs. I have provided the [facility], Office ofCare Management letter from the Work Measurement Engineer pertaining to rehab referrals. If patient chooses any or our affiliates, I will provide a letter describing our affiliations within the [facility]. I have provided information on the right to choose where referrals are placed. I reviewed the different levels of rehab including SNF, swing, acute and LTAC. I provided a list with quality rating from Medicare.gov of facilities from within the preferred geographic area. I have requested that the patient provide at least three choices for referral. The patient requested referrals to: 1. [address] [address] 2. [facility] PHONE: [phone] FAX: [phone] Nurse to Nurse report: [phone] [address] [place] [address] 3. [facility]) [address] [place] [address] PHONE: [phone] FAX: [phone] Expected date of discharge: TBD Note routed to [employer]per who will communicate referrals to facilities and [...] radiation oncology consults -PT/OT, mobilize, regular diet -Sterling due 2 wks post op -We will follow -Rest of care per primary team For question please call NSGY pager [phone] Andrew Monroe MD 07/04/2021 3:41 PM Clinical [...] Leblanc MD - 07/03/2021 3:19 PM EDT [facility] Medicine Attending Daily Progress Note Patient Name: [...] hours. ABG: No results for input(s): PHART, GGN3EXN, PO2ART, SFB2PQF in the last 168 hours. Coags: Recent Labs 06/28/212137 PT 12.3 PTT 33 INR 1.1 MICRO Microbiology Results (Last 30 days) Procedure Component Value Units Date/Time COVID-19 PCR [[id number]] Collected: 06/28/212102 Lab Status: Final result Specimen: [...] using the Simplexa COVID-19 Direct Assay by [employer] as authorized by the FDA issued Emergency [...] Department of Pathology and Laboratory Medicine at [facility], certified under the Clinical Laboratory Improvement Amendments [...] fact sheets at the following FDA website: https://www.fda.gov/medical-devices/dowsdjyskyp-lzafuwa-2742-zigbc-76-braumldis- ffx-oifgldsqgzuvmf-esmpldf-devices/yudch-uamxieszgok-yowr SARS-CoV-2 Source AUTOMOTIVE WINDOW TINTER Swab RECENT IMAGING None in past 24 hours. Signed: Benita Leblanc MD 07/03/2021 3:24 PM Hospital Medicine Team Pager: [phone] IPI Certification I certify that I am a D-H credentialed attending provider with admitting privileges and that the patient meets or has met medical necessity to require an inpatient IPI level of care meeting a minimum of two midnights or is on the [facility] inpatient only procedure list (status C) due to: Vasogenic edema with metastatic malignancy, seizure disorder, and neurological deficits requiring ongoing EEG monitoring, and surgical intervention of brain malignancy Andrew Monroe MD - 07/03/2021 8:00 AM EDT NEUROSURGERY [...] ??? insulin lispro 1-4 Units Subcutaneous Q4H COIRN ??? metoprolol tartrate 12.5 mg Oral Q8H [...] team For question please call NSGY pager [phone] Andrew Monroe MD 07/03/2021 9:49 AM Clinical [...] Leblanc MD - 07/02/2021 3:27 PM EDT [facility] Medicine Attending Daily Progress Note Patient Name: [...] hours. ABG: No results for input(s): PHART, PSQ5GRJ, PO2ART, TWS8FWD in the last 168 hours. Coags: Recent Labs 06/28/218 PT 12.3 PTT 33 INR 1.1 MICRO Microbiology Results (Last 30 days) Procedure Component Value Units Date/Time COVID-19 PCR [[id number]] Collected: 06/28/212102 Lab Status: Final result Specimen: [...] using the Simplexa COVID-19 Direct Assay by [employer] as authorized by the FDA issued Emergency [...] Department of Pathology and Laboratory Medicine at [facility], certified under the Clinical Laboratory Improvement Amendments [...] fact sheets at the following FDA website: https://www.fda.gov/medical-devices/ytdrrmonbga-uzkfkak-0450-yltvg-02-omrbicoph- wzz-hrknuefvrmtlzq-clmjygp-devices/vboed-wjutngmjekk-cdjl SARS-CoV-2 Source AUTOMOTIVE WINDOW TINTER Swab RECENT IMAGING None is past 24 hours. Signed: Benita Leblanc MD 07/02/2021 3:40 PM Hospital Medicine Team Pager: [phone] IPI Certification I certify that I am [...] nausea and no vomiting Last Bowel Movement: (DATABASE TECHNICIAN) Patient education / questions: all nutrition related questions answered at this time Nutrition services to follow weekly through hospital course unless consulted in the interim. Saba Vega Pager: [phone] Andrew Monroe MD - 07/02/2021 7:30 AM [...] radiation oncology consults -PT/OT, mobilize, regular diet -Sterling due 2 wks post op -We will follow -Rest of care per primary team For question please call NSGY pager [phone] Andrew Monroe MD 07/02/2021 9:21 AM Clinical [...] in NSCU, aox4, RA,SB, Neuro check intact.RUE 4 LUE 5/5, RLE 4/, LLE 5/ Merly Casiano RN Mary Lemus MD - 07/01/2021 3:07 PM EDT [facility] Medicine Attending Daily Progress Note Patient Name: [...] ??F) Intake/Output Summary (Last 24 hours) at 07/01/20211816 Last data filed at 07/01/2021 1600 Gross [...] 374* 376* BMP: Recent Labs 07/01/21 0030 06/30/2111106/28/211921 NA 136 134* 138 K 4.3 4.2 4.0 CL 100 97* 102 CO2 24 25 22 BUN 18 23* 17 CREATININE 0.93 1.20 0.91 GLUCOSE 121 180 118 Calcium, Magnesium, Phosphate: Recent Labs 07/01/21 0030 06/30/2111106/28/211921 CALCIUM 8.4* 9.4 9.4 MAGNESIUM 0.90 0.97 -- PHOS 3.4 -- -- LFTs: No results for input(s): AST, ALT, ALKPHOS, BILITOT, BILIDIR in the last 168 hours. Troponin: No results for input(s): TROPONINT, CK in the last 168 hours. ABG: No results for input(s): PHART, TJJ6TUP, PO2ART, CDS6CYA in the last 168 hours. Coags: Recent Labs 06/28/212137 PT 12.3 PTT 33 INR 1.1 MICRO Microbiology Results (Last 30 days) Procedure Component Value Units Date/Time COVID-19 PCR [[id number]] Collected: 06/28/212102 Lab Status: Final result Specimen: [...] using the Simplexa COVID-19 Direct Assay by [employer] as authorized by the FDA issued Emergency [...] Department of Pathology and Laboratory Medicine at [facility], certified under the Clinical Laboratory Improvement Amendments [...] fact sheets at the following FDA website: https://www.fda.gov/medical-devices/vwtlpdojihd-uqcuaxp-0656-jnrze-67-wlzstjrxg- umj-jtxnoflgwfsivf-jnonndb-devices/zhjfx-abiddslxnhm-erxu SARS-CoV-2 Source AUTOMOTIVE WINDOW TINTER Swab RECENT IMAGING None is past 24 hours. Signed: aMry Lemus MD 07/01/2021 6:17 PM Hospital Medicine Team Pager: [phone] IPI Certification I certify that I am a D-H credentialed attending provider with admitting privileges and that the patient meets or has met medical necessity to require an inpatient IPI level of care meeting a minimum of two midnights or is on the [facility] inpatient only procedure list (status C) due to: Vasogenic edema with metastatic malignancy, seizure disorder, and neurological deficits requiring ongoing EEG monitoring, and possible surgical intervention of brain malignancy Dexter Emmanuel, PT - 07/01/2021 11:53 AM EDT Physical Therapy Note Treatment Number PT: 2 Patient profile: Betsy Laird is a 75 y.o. male admitted on 06/28/[address] Mary Lemus MDwent to [facility] ED with R sided weakness progressed over a month with R foot drop and MRI of brain c/w metastatic brain cancer and referred to [facility]. ??MRI of his lumbar spine which showed multilevel degenerative disease. Vasogenic edema, continue decadron. Seizure-like activity so Neurology placed EEG monitor 06/29: No seizures or epileptiform discharges were observed.?? Imaging showing R hilar lung mass. Surgical consideration pending lung biopsy results PMH: CAD s/p 4vCABG ~2019 @ [facility], tobacco use disorder in recent remission 5 days ago (58 pk/yr history). Interval History: Surgery 06/30 :L frontal and L parietal craniotomy for resection of tumors. Neuro ICU post-op., frozen consistent with non-small cell Social History: Lives alone in [place], [place] in a one level home with [...] aches some Vital Signs: HR=59 SpO2=93% RA NT=211/65 ?? Seen in Neuro ICU post-op: agreeable [...] for staff assistance before moving. Assessment: Betsy Laird was seen today for [...] Physical Therapy: 32 (TE-F x 2) DEXTER EMMANUEL PT Pager: [phone] Physical Therapy Inpatient Rehabilitation Department Judith Duran [...] 30.83) performed by Estefania Justice MD at [facility] MAIN OR ??? PRO MICROSURG TECHNIQUES, REQ OPER MICROSCOPE N/A 06/30/2021 MICROSCOPE USE (WRVU 3.46) performed by Estefania Justice MD at [facility] MA[facility] OR ??? 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 Pt will demonstrate independence with RUE HEP to improve coordination Plan: OT: Therapy Frequency [...] instrument andmeasurable assessment of functional outcome. Pager: [phone] Judith Duran OTR/L Occupational Therapy Rehabilitation Department [...] Justice. For question please call NSGY pager [phone] MEDICATIONS: Scheduled Meds: ??? insulin lispro 1-4 [...] ml LABS: Recent Labs 07/01/21 0030 06/30/21 0112 06/28/211921 WBC 16.1* 16.9* 10.7* HGB 12.1* 13.1* 14.3 PLATELET 319 374* 376* Recent Labs 07/01/21 0030 06/30/21 0112 06/28/211921 NA 136 134* 138 K 4.3 4.2 4.0 CL 100 97* 102 CO2 24 25 22 BUN 18 23* 17 CREATININE 0.93 1.20 0.91 Recent Labs 06/28/21 2138 PT 12.3 INR 1.1 MARCUS Kelly 07/01/2021 7:06 AM Clinical Documentation Improvement: Active Hospital Problems Diagnosis ??? 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 Lung Cancer, metastatic stage IV, type not identified ??? Cigarette nicotine dependence with withdrawal ??? CAD (coronary artery disease), HLD Resolved Hospital Problems No resolved problems to display. CIT Glenis Dozier RN - 06/30/2021 7:31 PM [...] Lemus MD - 06/30/2021 12:07 PM EDT [facility] Medicine Attending Daily Progress Note Patient Name: [...] hours. ABG: No results for input(s): PHART, ALP1QMU, PO2ART, LBF9CBV in the last 168 hours. Coags: Recent Labs 06/28/212137 PT 12.3 PTT 33 INR 1.1 MICRO Microbiology Results (Last 30 days) Procedure Component Value Units Date/Time COVID-19 PCR [[id number]] Collected: 06/28/212102 Lab Status: Final result Specimen: [...] using the Simplexa COVID-19 Direct Assay by [employer] as authorized by the FDA issued Emergency [...] Department of Pathology and Laboratory Medicine at [facility], certified under the Clinical Laboratory Improvement Amendments [...] fact sheets at the following FDA website: https://www.fda.gov/medical-devices/ideapohqqol-eascknv-2154-omhlq-56-lhocqwuyc- gui-evzneipqbggbwh-cdshqbb-devices/tbudl-elcauhcgyii-aful SARS-CoV-2 Source AUTOMOTIVE WINDOW TINTER Swab RECENT IMAGING None is past 24 hours. Signed: Mary Lemus MD 06/30/2021 12:07 PM Hospital Medicine Team Pager: [phone] IPI Certification I certify that I am a D-H credentialed attending provider with admitting privileges and that the patient meets or has met medical necessity to require an inpatient IPI level of care meeting a minimum of two midnights or is on the [facility] inpatient only procedure list (status C) due [...] team For question please call NSGY pager [phone] Andrew Monroe MD 06/30/2021 8:27 AM Clinical Documentation Improvement: Active Hospital Problems Diagnosis ??? 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 Lung Cancer, metastatic stage IV, type not identified ??? Cigarette nicotine dependence with withdrawal ??? CAD (coronary artery disease), HLD Resolved Hospital Problems No resolved problems to display. 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 Pt [...] & Perception: ?? WNL/WFL ?? 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 Pt would benefit from [facility] inpatient OT interventions to address performance deficits [...] instrument andmeasurable assessment of functional outcome. Pager: [phone] Radha Gramajo OT 06/29/2021 Occupational Therapy Rehabilitation Department Mary Lemus MD - 06/29/2021 2:00 PM EDT [facility] Medicine Attending Daily Progress Note Patient Name: [...] hours. ABG: No results for input(s): PHART, WTJ1ZPO, PO2ART, EKC1YHN in the last 168 hours. Coags: Recent Labs 06/28/212137 PT 12.3 PTT 33 INR 1.1 MICRO Microbiology Results (Last 30 days) Procedure Component Value Units Date/Time COVID-19 PCR [[id number]] Collected: 06/28/212102 Lab Status: Final result Specimen: [...] using the Simplexa COVID-19 Direct Assay by [employer] as authorized by the FDA issued Emergency [...] Department of Pathology and Laboratory Medicine at [facility], certified under the Clinical Laboratory Improvement Amendments [...] fact sheets at the following FDA website: https://www.fda.gov/medical-devices/gdxhfdbgifj-mmvwekg-6738-vmozb-46-yeovyubks- kot-weztqrnnbsrbjw-pbzbgyp-devices/jlysf-tvjqhwtgmbm-gmdd SARS-CoV-2 Source AUTOMOTIVE WINDOW TINTER Swab RECENT IMAGING CT Head wo Contrast (Generic) Result Date: 06/28/2021 EXAMINATION: CT HEAD WO CONTRAST (GENERIC) CLINICAL HISTORY: WELCOME CENTER AGENT metastatic lesions suspected, initial workup; progressive right sided weakness r/o mets/bleed TECHNIQUE: CT head performed without intravenous contrast administration. COMPARISON: Brain MRI 06/28/2021 FINDINGS: There is a large peripherally hyperdense mass within the superior left frontal lobe which measures 3 x 2.7 x 2.6 cm in size withcentral low attenuation. There is extensive surrounding vasogenic edema and local mass effect, with mild qjuf-sv-tygwf subfalcine herniation, and effacement of the anterior left lateral ventricle thereis minimal 3 mm mxqo-oi-srxxp midline shift measured at the foramen of [...] who have questions please contact the health summer child caregiver that requested your imaging first. Electronically signed by: Derrick Suresh MD, [facility] ), at 06/28/2021 8:03 PM XR Chest PA & Lateral (Generic) Result [...] who have questions please contact the health summer child caregiver that requested your imaging first. Film Library- [...] who have questions please contact the health summer child caregiver that requested your imaging first. Signed: Mary Lemus MD 06/29/2021 2:32 PM Hospital Medicine Team Pager: [phone] IPI Certification I certify that I am a D-H credentialed attending provider with admitting privileges and that the patient meets or has met medical necessity to require an inpatient IPI level of care meeting a minimum of two midnights or is on the [facility] inpatient only procedure list (status C) due [...] to include CAD s/p 4vCABG ~2019 @ [facility], tobacco use disorder in recent remission 5 [...] ECG Leads Relevant medications:Decadron Last Bowel Movement: (DATABASE TECHNICIAN) Admit Weight: 77.11 kg Estimated body mass index is 24.55 kg/m?? as calculated from the following: Height as of this encounter: 177.8 cm (5' 10). Weight as of this encounter: 77.6 kg (171 lb 1.2 oz). [place] Body Weight: 75.5 kg Usual Body Weight: reported as stable Wt Readings from Last 10 Encounters: 06/29/21 77.6 kg (171 lb 1.2 oz) Assessment: Estimated needs: Calories: 1925 (25 kcal/kg) Protein: 100 grams (1.3 g/kg) Nutrition Focused Physical Exam (NFPE): Not performed Nutrition intake and intake history/Interview: Pt seen per MST. 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 before that with no change in wt or ill fitting clothes. He is currently hungry but NPO for tests. He is very agreeable to Ensure on trays once his diet advances. Protein-calorie Malnutrition: Not identified (LINDA Boles J Parenteral Enteral Nutr. 2011;36(3): 273-83) Nutrition to continue to follow up while inpatient [address] Pager #[phone] Dexter Emmanuel PT - 06/29/2021 11:45 AM EDT Physical Therapy Evaluation Patient profile: Betsy Laird is a 75 y.o. male admitted on 06/28/2021 by Teena Armas to [facility] ED with R sided weakness progressed over a month with R foot drop and MRI of brain c/w metastatic brain cancer and referred to [facility]. MRI of his lumbar spine which showed multilevel degenerative disease. Vasogenic edema, continue decadron. Seizure-like activity so Neurology placed EEG monitor 06/29: No seizures or epileptiform discharges were observed. Imaging showing R hilar lung mass. Surgical consideration pending lung biopsy results Patient with the following active problems: CAD s/p 4vCABG ~2019 @ [facility], tobacco use disorder in recent remission 5 days ago (58 pk/yrhistory). Social History: Lives alone in [place], [place] in a one level home with [...] and my other [place] and works full-time?? Objective: Pt seen [...] assist: minimum assist x 2 Gait mechanics: oilv-me-yomt with cues for sequence, having to push [...] @ home) Goals: To be achieved by 5-5-22: 1. Pt. to demonstrate knowledge of safety [...] for this consult. DEXTER EMMANUEL, PT Pager: [phone] Physical Therapy Inpatient Rehabilitation Department Time IN / OUT: 01-20:45 Total Minutes, Physical Therapy: 45 (EV) 2016 PT Evaluation Code Rationale: ?? 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 but unable to lift arm at shoulder [...] per primary team For question please call [facility] pager [phone] Andrew Monroe MD 06/29/2021 5:50 AM Clinical [...] to his continued weakness,he was taken to [facility] where MRI brain and c-spine revealed multiple [...] pain Neuro: as per HPI; denies weakness, PINEDA, paresthesias, seizures, tremors, vertigo, balance problems History [...] Lines/Drains/Airways: Peripheral IV Line - Single Lumen 06/28/21 192 basilic vein (medial side of arm), right 18 gauge (Active) Indication/Daily Review of Necessity fluid therapy continuous 06/30/21832 Site Preparation/Maintenance dressing: dry and intact 06/29/2122 Securement arm board, secured to;site guard in place 06/30/21832 Patency/Maintenance flushed without difficulty 06/30/21832 Phlebitis 0-->no symptoms 06/30/2145 Infiltration 0-->no symptoms 06/30/2145 Site Signs/Symptoms no redness;no swelling;no pain;no drainage;no streak formation 06/29/2122 Labs: Recent Results (from the past 24 [...] NCCU MARCUS Nguyen Neurocritical Care Team Pager [phone] Juan Gaytan DO - 06/28/2021 10:22 PM EDT Images from the original note were not included. Hospital Medicine History and Physical Patient info: Name: Betsy Laird : 1945 PCP: Myriam Riggins MD (Inactive) PCP phone number: [phone] Date of Admission: 06/28/2021 ( Hospital Day [...] include CAD s/p 4v CABG ~2019 @ [facility], tobacco use disorder in recent remission 5 [...] showed multilevel degenerative disease. He presented to [facility] yesterday where he underwent an MRI brain and C-spine that showed multiple intracranial lesions concerning for metastasis. He then presented to [facility] ED this afternoon. Associated symptoms include intermittent [...] daughter. Retired 3 years ago, worked [employer] in many roles over the years [...] so never un derwent repeat. Saw a dynamotor repairer last 3 years ago but was stable s/p CABG so did not return and PCP has taken over cardiac care. [facility] ED: V/S: Afebrile, heart rate 70s, mildly [...] Environmental. CIS - Allergic Rhinitis Medications: Medications 06/28/21 2630 Medication Sig Taking? metoprolol succinate XL (Toprol-XL) [...] output data in the 24 hours ending 06/28/212 Patient Vitals for the past 168 hrs: [...] L Elbow flexion 4/5 R, 5/5 L Cardiovascular Surgeon LE: 4/5 R, 5/5 L Hip flexion [...] in the last 7068 hours. Invalid input(s): UWPVHBDEQMU1D No results for input(s): HA1C in the last 7068 hours. Heme: No results for input(s): LDH, HAPTOGLOBIN, URICACID in the last 168 hours. ABG: ABG (Arterial Blood Gas) No results found for: PHART, PO2ART, TBQ1BRD, ZYD7LNR Microbiology: Covid pending Pertinent radiology/diagnostic studies: CXR: [...] care prior to discharge #Hx CAD s/p 4vCAB2018 -Continue atorvastatin 80 mg qd -Split dose [...] Juan Gaytan DO 06/28/2021 Hospital Medicine # [id number] -> redistributed to day team at 0800 06/29 documented in this encounter Procedure Notes Jessie Radford MD - 06/29/2021 2:20 AM EDTAssociated Order(s): EEG AWAKE, ASLEEP, DROWSY [facility] Department of Neurology Inpatient EEG Report Name of the Patient: Betsy Laird Date of : 1945 Date of Service: 06/29/2021 Referring physician: Juan Gaytan DO BRIEF HISTORY: Betsy Laird is a 75 y.o. patient with seizure. MEDICATIONS: Current Facility-Administered Medications Medication Dose Route Frequency Provider Last Rate Last Admin ??? metoprolol tartrate (Lopressor) tablet 12.5 mg 12.5 mg Oral Q8H [facility] Juan Gaytan, DO ??? sodium chloride 0.9 [...] tablet 4 mg 4 mg Oral Q6H CORIN Juan Gaytan, DO 4 mg at 06/28/21 2344 ??? atorvastatin (Lipitor) tablet 80 mg 80 mg Oral QPM Juan Gaytan, DO 80 mg at 06/28/212248 ??? pantoprazole EC (Protonix) tablet 40 mg 40 mg Oral Daily Juan Gaytan, DO 40 mg at 06/28/21 2249 ??? levETIRAcetam (Keppra) tablet 500 mg 500 mg Oral BID Juan Gaytan, DO METHODS: A 21 channel digitized electroencephalogram was performed in the [facility] Clinical Neurophysiology Laboratory. The 10/20 international system of electrode placement was used and bipolar and referential electrode montages were recorded. In addition to EEG the patient was monitored for EKG and lateral/vertical eye movements. Video was recorded during the session. The duration of the recording was 70 minutes. [employer] REPORT: Performed by: AT Patient was not [...] Jessie Radford MD Epilepsy fellow PGY-6 Pager #[phone] 06/29/2021 Associated attestation - Wally Lemon Jr., MD - 06/29/2021 5:06 PM EDT I have reviewed the EEG with the fellow and agree with the assessment above. Wally Lemon MD, PhD Diplomate, [place] [employer] Psychiatry and Neurology, with added qualification in Epilepsy head inspector and center marker Electroencephalography Co-Director of Intraoperative Neurophysiologic Monitoring [facility] [employer] [facility], Department of Neurology 06/29/2021 5:06 PM documented [...] who have questions please contact the health summer child caregiver that requested your imaging first. Head wo Contrast (Generic) Final Result 1. [...] who have questions please contact the health summer child caregiver that requested your imaging first. Film Library- Storage Only MR Head and [...] 06/28/2021 11:48 PM EDT Pt transported to [facility] via stretcher with all belongings in stable condition. Daughter Majo updated to new bed assignment. Darren Parra RN Misti Parra RN - 06/28/2021 11:30 PM EDT Pt transport to [facility] requested. Darren Parra RN Misti Parra RN - 06/28/2021 11:10 PM EDT Phone report provided to receiving Balbina MORFIN. Pt transported to CT via stretcher. Darren Parra RN Misti Parra RN - 06/28/2021 11:[address] Martinez notified of RUE focal seizure-like activity. Airway patent, tachycardic on monitor to 115. Patient AAO x 4. Darren Parra RN Misti Parra RN - 06/28/2021 9:46 PM EDT Majo Tobias (daughter) , Antonina Garcia (daughter) . Darren Parra RN Stephanie Osuna [...] to CT via stretcher in stable condition. Darren Parra RN Misti Parra RN - 06/28/2021 7:23 PM EDT 75 yo male presents with 1 month of progressive right-sided weakness and gait disturbance. Underwent MRI today and results suspicious for a brain tumor. Pt placed in stretcher, on continuous cafeteria monitor, peripheral IV access obtained, labs drawn/sent. ED provider at bedside for initial evaluation. Darren Parra RN Falguni Chung MD - 06/28/2021 4:39 PM EDT Telehealth Fekxzmma-bj-Pqzxsx Note: The following documentation is provided in my role as a TeleEmergency Physician and reflects a live audiovisual interaction. Brief HPI: 75y/o man presents due to brain cancer. He was seen at [facility] for right sided weakness. He had a brain MRI this morning that showed a mass. His PCP told him to drive to the [facility] ED. He was able to walk a [...] currently have access to the MRI from [facility]. We will also need records from [facility] in [place], [place]. Preliminary testing was ordered. The patient is awaiting a bed in the Emergency Department. Falguni Chung MD 06/28/21 1646 documented in this encounter Miscellaneous Notes Plan of Care - Brandi Romano RN - 07/08/2021 12:41 PM EDT Betsy Laird discharged to Rehab ([facility]) by private car with Family member (daughter). [...] all questions answered.Report called to Kylee at [facility]. Patient instructed to call with concerns. Plan [...] intermittently. No complaints of pain. 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 Neuro checks unchanged. Voiding in urinal. BM [...] through: Primary Insurance: [employer] Payor: [facility] MANAGED MEDICARE / Plan: [employer]ICARE [...] Anticipated Date of Discharge: 07/06/2021 Maranda Teresa [facility] [phone] Plan of Care - Anna Helm RN [...] admitted to on 06/28 after presenting to [facility] with prgressive right sided weakness. An MRI [...] life. He worries mostly about his dog, Max. His daughters are supportive and caring for his dog now. He intends to get treatment in [place] as he lives in [place], [place]. His PCP is Dr. Riggins, who is also a Shoe Ironer. He has no bothersome symptoms, just the [...] is a 75 year old man from [place], [place] with newly diagnosed metastatic cancer to the brain and a right hilar mass, s/p crani for brain biopsy, now awaiting results and treatment options. Supportive counseling re: coping with serious illness. He has excellent support in his daughters. Will need referral for Palliative Care in [facility] as that is where he will get [...] Laird is a 75 y.o. 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 He has two daughters, one who lives a few miles away from him, and one who lives in [place], [place]. 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 Following, he presented to [facility] where an MRI noted several brain mets. Patient was admitted to [facility] on 06/28/21. CT head on 06/28/21 showed [...] had radiation. No implantable device. Worked in [employer], retired 4 year ago. Rides motorcycles in [...] 30.83) performed by Estefania Justice MD at [facility] MAIN OR ??? PRO MICROSURG TECHNIQUES, REQ OPER MICROSCOPE N/A 06/30/2021 MICROSCOPE USE (WRVU 3.46) performed by Estefania Justice MD at [facility] MAIN OR ??? PRO STEREOTACTIC CPTR ASSTD PX CRANIAL, INTRADURAL N/A 06/30/2021 STEREOTACTIC COMPUTER-ASSTD NAVIGATIONAL CRANIAL INTRADURAL (WRVU 3.75) performed by Estefania Justice MD at [facility] MAIN OR Medications: ??? insulin lispro [...] excision : EPITHELIOID NEOPLASM, FAVOR METASTATIC CARCINOMA. (NEILZ) Assessment: Betsy Laird is a 75 y.o. [...] PW, Int J Radiat Oncol Biol Phys. 2008Feb 02). Betsy Laird is a candidate for hippocampal avoidance PINEDA-WBRT. Rationale for this approach was published in JCO 2020, which was a randomized trial ([facility] Oncology CC001) and found- Risk of cognitive [...] and that we could treat up in [facility] as an outpatient. We discussed we would [...] with survival and improved neurocognitive function. (Lay Brown, J Clin Oncol. 2007 Jun 10;25(10):1260-6.) Subset [...] an outpatient in rad onc clinic in [facility]. Recommendations: - Systemic therapy per medical oncology - F/u outpatient radiation oncology in [facility] - F/u final path - Likely recommend [...] 30.83) performed by Estefania Justice MD at [facility] MAIN OR ??? PRO MICROSURG TECHNIQUES, REQ OPER MICROSCOPE N/A 06/30/2021 MICROSCOPE USE (WRVU 3.46) performed by Estefania Justice MD at [facility] MAIN OR ??? PRO STEREOTACTIC CPTR ASSTD PX CRANIAL, INTRADURAL N/A 06/30/2021 STEREOTACTIC COMPUTER-ASSTD NAVIGATIONAL CRANIAL INTRADURAL (WRVU 3.75) performed by Estefania Justice MD at [facility] MA[facility] OR Physical Exam Constitutional: General: [...] control brain mets. Likely give xrt in [address] [place] [address] facility (closer to his home) as outpatient. Discussed possible side effects of xrt, w/acute/immediate side effects including skin pinkening/dryness w/in irrad'd area, hair loss which may be permanent & tiredness. Possible late/long term care phlebotomist side effects include adverse effect on short [...] was c/w degenerative disease. He went to [facility] as recommended by his neurologist/PCP to complete the work up with a MRI brain and C-spine that showed multiple intracranial lesions concerning for metastasis. He presented to [facility] on 06/[address] C/A/P was [...] [address] scan at [facility] last year showed some stable b/l lung lesions with plan to repeat imaging in 1 year as per patient No Hx of autoimmune disease Past Surgical History: Procedure Laterality Date ??? PRO EXCIS SUPRATENT BRAIN TUMOR Left 06/30/2021 @CRANI, FOR TUMOR, SUPRATENTORIAL, NOT MENINGIOMA (WRVU 30.83) performed by Estefania Justice MD at [facility] MAIN OR ??? PRO MICROSURG TECHNIQUES, REQ OPER MICROSCOPE N/A 06/30/2021 MICROSCOPE USE (WRVU 3.46) performed by Estefania Justice MD at [facility] MA[facility] OR ??? PRO STEREOTACTIC CPTR ASSTD PX CRANIAL, INTRADURAL N/A 06/30/2021 STEREOTACTIC COMPUTER-ASSTD NAVIGATIONAL CRANIAL INTRADURAL (WRVU 3.75) performed by Estefania Justice MD at [facility] MA[facility] OR History reviewed. No pertinent [...] -- -- 60 -- 95 % -- 06/30/21 2156 142/76 -- -- 57 -- 92 % -- 06/30/21 2104 112/72 -- -- 54 -- -- -- [...] Result Value Ref Range Surgical Pathology Report [id number] Location: OR; OR04; A The signing pathologist [...] MD Verified: 06/30/2021 13:30 Pathologist Performed at: [facility] Dept. of Pathology, [place], [place] This intraoperative consultation should be interpreted [...] was c/w degenerative disease. [facility] and [facility]-spine showed multiple intracranial lesions concerning for metastasis. He presented to [facility] on 06/[address] C/A/P showed [...] He would like to establish care at [facility], we will plan for him to f/u with one of our oncologists there. Thank you for the consult. Patient's case was discussed with my attending Dr. Ana Delvalle Hematology/Medical Oncology Fellow Page # [phone] 07/01/21, 9:57 AM Attestation: I saw this [...] Operative Note Patient Name: Betsy Laird : [id number] MR#: [id number] Case Date: 06/30/2021 Surgeon: Surgeon(s) and Role: [...] N/A Emmy Boyer MD 06/30/2021 2:05 PM [facility] Neurosurgery Inpatient Pager: #[phone] Personal Pager: #[phone] Op Note - Estefania Justice MD - 06/30/2021 12:35 PM EDT [facility] Operative Note Patient Name: Betsy Laird : [id number] MR#: [id number] Case Date: 06/30/2021 Surgeon: Surgeon(s) and Role: [...] COVID test: Lab Results Component Value Date [id number] Not Detected 06/28/2021 Past medical History: History reviewed. No pertinent past medical history. Hospitalizations Within the Past 30 Days: no previous admission in last 30 days Current Decision-Making Capacity: Self Advance Care Planning: Attempt Cardiopulmonary Resuscitation - Inpatient <no information> -Advanced Directive: No, need to discuss (Antonina GarciaDquojdudjy-geyde-azd surrogacy) If AD's have not been completed Antonina Way would be surrogate decision maker per [place] surrogatedecision making law. (Only good for 180 days) Any patient receiving care at [facility] must abide by [place] law. The hierarchy for surrogate decision making [...] (i) The agent with financial power of banking attorney or a conservator appointed in accordance [...] wheelchair - manual Home Address confirmed as: [address] [facility] [address] Social & Family Supports: All names listed below confirmed with patient as current and correct Extended Emergency Contact Information Primary Emergency Contact: Antonina Garcia Relation: Child Secondary Emergency Contact: JatinderSandro Relation: Child Current Care Provided by: self, child(annette) (Daughter Ana able to help occasionally) Provides Primary Care For: pet(s) Caregiver if needed: homecare agency (If patient needs assistance at home he would benefit from a homecare agency due to his daughter Ana working metal sprayer machined parts and has a daughter so is unable [...] able to help occasionally but 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 Patient has another daughter, Antonina, who lives farther away but is supportive. Patient was previously very independent however he has reported multiple falls recently and has started using assistive equipment (walker, wheelchair, and grab bars). Health/Prescription Coverage: Primary Insurance: [employer]ED [employer]ICARE Payor: [employer]ED MEDICARE / Plan: [employer]NAGED MEDICARE / Product Type: *No Product type* / Secondary Insurance: N/A Prescription Coverage: Yes Preferred Pharmacy: [id number] - [place], [place] - [address] [place] [address] AT [facility] [address] [address] Status: Patient is a : No Primary Care Provider: Myriam Riggins MD [phone] Patient/Caregiver Goals of Treatment: Unable to assess [...] SW need identified at this time but OFFICE MACHINE MECHANIC will remain available should any needs arise. A member of the Care Management team will continue to monitor progress, follow for continuity of care and assist with transition of care planning. JOSIANE Castro Control Room Technician [facility] Medicine/ Medical Specialties Pager- [phone] Assessment & Plan Note - Benita Leblanc MD - 06/29/2021 1:57 PM EDTAssociated Problem(s): CAD (coronary artery disease), HLD CAD s/p CABG in 2019. No acute issues. PLAN -Hold ASA per neurosurgery; okay to resume 2 weeks post op (07/14) -Continue Atorvastatin and BB Assessment & Plan Note - Benita Leblanc MD - 06/29/2021 1:56 PM EDTAssociated Problem(s): [...] ongoing management Consult Note - Amy Dillon RPH - 06/29/2021 12:00 PM EDT TelePharmacy Home [...] days] who presented to the ED at [facility] with 3-4 week history of RIGHT sided [...] daughters took him to the ED at [facility] where an MRI of his brain and cervical spine was done revealing multiple intracranial lesions concerning for metastases. He was discharged from the ED at [facility] and was told to drive to the [...] edema and local mass effect, with mild ibzk-qa-oibyn subfalcine herniation, and effacement of the anterior left lateral ventricle there is minimal 3 mm nwzz-rf-megzb midline shift measured at the foramen of [...] Curtis Laura MD [facility] RADIATION [place], [place] [address] (Wo rk) 10/07/2021 Office Visit Neurology Wally Chow MD [facility] NEUROLOGY [place], [place] 0[address] (Wo rk) Scheduled Referrals Name [...] Scan, Peripheral Blood (07/08/2021 5:07 AM EDT) [facility] [employer] Method Time Signature Plat Estimate Normal [facility] RBC Morphology Abnormal [facility] [place] Cells 1-5 /HPF [facility] Specimen Anatomical Collection Method Collection Time Receive d Time (Source) Location / / Volume Laterality Blood 07/08/2021 5:07 AM 5:26 EDT AM EDT Resulting Agency Comment Spec In Lab Benita Leblanc MD HEMATOLOGY ORDERABLES Performing Organization Address City/State/ZIP [place] [address] (ABNORMAL) Differential, Automated (07/08/2021 5:07 AM EDT) [facility] [employer] Method Time Signature Neutrophils % 73.1 % [facility] Neutr Abs (ANC) 10.85 (H) 1.70 - [facility] 6.10 [facility] x10(3)/[facility] LABORATORY Lymphocytes % 13.0 % [facility] Lymphocytes Abs 1.9 0.9 - 3.2 [facility] x10(3)/[facility] LABORATORY Monocytes % 7.3 % [facility] Monocyte Abs 1.1 (H) 0.3 - 0.9 [facility] x10(3)/[facility] LABORATORY Eosinophils % 0.3 % [facility] Eosinophils Abs 0.0 0.0 - 0.4 [facility] x10(3)/[facility] LABORATORY Basophils % 0.7 % [facility] Basophils Abs 0.1 0.0 - 0.1 [facility] x10(3)/[facility] LABORATORY Immature Gran % 5.60 % [facility] Comment: Immature granulocytes(IG's)percentage an d absolute count will include metamyelocytes, myelocytes, and promyelo cytes. Blood smears from CBCs yielding IG's will be scanned manually for concor dance. If this scan disagrees with the automated IG or if promyelocytes are not ed, a manual differential will be performed. Beba Gran Abs 0.84 (H) 0.00 - 0.04 x10(3)/[facility] LABORATORY Specimen Anatomical Collection Method Collection Time Receive d Time (Source) Location / / Volume Laterality Blood 07/08/2021 5:07 AM 5:26 EDT AM EDT Resulting Agency Comment Spec In Lab Benita Leblanc MD HEMATOLOGY ORDERABLES Performing Organization Address City/State/ZIP [place] [address] (ABNORMAL) Hemogram (07/08/2021 5:07 AM EDT) Analysis Performed At Patho logist Time Signature WBC 14.9 (H) 4.0 - 9.5 [facility] x10(3)/[facility] LABORATORY RBC 4.45 (L) 4.58 - [facility] 5.54 [facility] x10(6)/[facility] LABORATORY Hemoglobin 13.1 (L) 13.7 - [facility] 16.5 g/dL [facility] LABORATORY Hematocrit 39.8 (L) 40.5 - [facility] 48.5 % [facility] LABORATORY MCV 89.4 82.9 - [facility] 93.1 [facility] LABORATORY MCH 29.4 27.5 - [facility] 32.1 pg [facility] LABORATORY MCHC 32.9 32.0 - [facility] 35.7 g/dL [facility] LABORATORY Platelets 317 145 - 357 [facility] x10(3)/[facility] LABORATORY RDWSD 41.0 36.0 - [facility] 45.0 [facility] LABORATORY RDWCV 12.6 11.4 - [facility] 13.8 % [facility] LABORATORY MPV 10.3 7.6 - 12.9 [facility] LABORATORY nRBC % Auto 0.0 % [facility] nRBC Abs Auto 0.000 0.000 - [facility] 0.000 [facility] x10(3)/[facility] LABORATORY Specimen Anatomical Collection Method Collection Time Receive d Time (Source) Location / / Volume Laterality Blood 07/08/2021 5:07 AM 2 5:26 EDT AM EDT Resulting Agency Comment Spec In Lab Benita Leblanc MD HEMATOLOGY ORDERABLES Performing Organization Address City/[facility]/ZIP Code Phon e Number [address] Phosphorus (07/08/2021 5:07 AM EDT) P athologist Signature Phosphorus 3.2 2.5 - 4.5 [facility] mg/dL [facility] LABORATORY Specimen Anatomical Collection Method Collection Time Receive d Time (Source) Location / / Volume Laterality Blood 07/08/2021 5:07 AM 2 5:26 EDT AM EDT Resulting Agency Comment Spec In Lab Benita Leblanc MD CHEMISTRY ORDERABLES Performing Organization Address City/[facility]/ZIP Code Phon e Number [address] Magnesium (07/08/2021 5:07 AM EDT) athologist Signature Magnesium 0.81 0.69 - 1.07 [facility] mmol/L [facility] LABORATORY Specimen Anatomical Collection Method Collection Time Receive d Time (Source) Location / / Volume Laterality Blood 07/08/2021 5:07 AM 2 5:26 EDT AM EDT Resulting Agency Comment Spec In Lab Benita Leblanc MD CHEMISTRY ORDERABLES Performing Organization Address City/[facility]/[place] [address] (ABNORMAL) Basic Metabolic Panel (non-fasting) (07/08/2021 5:07 AM EDT) athologist Signature Glucose Lvl 115 65 - 199 [facility] mg/dL [facility]ATORY Comment: Diabetes: >=200 mg/dL plus symp toms BUN 25 (H) 10 - 20 mg/dL [facility] Creatinine 0.85 0.80 - 1.50 mg/dL [facility] Sodium 131 (L) 135 - 145 mmol/L [facility] Potassium 5.0 3.5 - 5.0 mmol/L [facility] Comment: Please note: ??Patients with WBC >100,00 0 may have falsely elevated Potassium levels. ??For accurate Potassium quantif ication in these patients send serum separator tube (gold top) for subsequent determinations. ??Contact the Clinical Chemistry Laboratory if there are any qu estions. Chloride 99 98 - 107 mmol/L [facility] CO2 23 22 - 31 mmol/L [facility] Anion Gap 9 5 - 15 mmol/L [facility] Calcium 8.5 8.5 - 10.5 mg/dL [facility] Estimated GFR 86 >=60 mL/min/1.73 m?? [facility] Comment: This patient? s estimated [...] Organization Address City/State/ZIP [place] [address] (ABNORMAL) Basic Metabolic Panel (non-fasting) (07/07/2021 6:20 PM EDT) P athologist Signature Glucose Lvl 146 65 - 199 [facility] mg/dL [facility] LABORATORY Comment: Diabetes: >=200 mg/dL plus symp toms BUN 27 (H) 10 - 20 mg/dL [facility] Creatinine 0.89 0.80 - 1.50 mg/dL [facility] Sodium 134 (L) 135 - 145 mmol/L [facility] Potassium 4.4 3.5 - 5.0 mmol/L [facility] Comment: Please note: ??Patients with WBC >100,00 0 may have falsely elevated Potassium levels. ??For accurate Potassium quantif ication in these patients send serum separator tube (gold top) for subsequent determinations. ??Contact the Clinical Chemistry Laboratory if there are any qu estions. Chloride 98 98 - 107 mmol/L [facility] CO2 24 22 - 31 mmol/L [facility] Anion Gap 12 5 - 15 mmol/L [facility] Calcium 8.6 8.5 - 10.5 mg/dL [facility] Estimated GFR 84 >=60 mL/min/1.73 m?? [facility] Comment: This patient? s estimated [...] Organization Address City/State/ZIP [place] [address] Osmolality, urine, random (07/07/2021 2:05 PM EDT) athologist Signature U Osmolality 1,058 50 - 1,200 [facility] mOsm/kg [facility]ORATORY Specimen Anatomical Collection Method Collection Time Receive d Time (Source) Location / / Volume Laterality Urine 07/07/2021 2:05 PM 2 2:15 EDT PM EDT Resulting Agency Comment Spec In Lab Benita Leblanc MD URINE ORDERABLES Performing Organization Address City/[facility]/ZIP Code Phon e Number [address] Sodium, urine, random (07/07/2021 2:05 PM EDT) athologist Signature U Sodium 91 mmol/L [facility] Specimen Anatomical Collection Method Collection Time Receive d Time (Source) Location / / Volume Laterality Urine 07/07/2021 2:05 PM 2 2:15 EDT PM EDT Resulting Agency Comment Spec In Lab Benita Leblanc MD URINE ORDERABLES Performing Organization Address City/[facility]/[place] [address] (ABNORMAL) Differential, Automated (07/07/2021 6:14 AM EDT) [facility] Method Time Signature Neutrophils % 71.1 % [facility] Neutr Abs (ANC) 11.32 (H) 1.70 - [facility] 6.10 [facility] x10(3)/[facility] LABORATORY Lymphocytes % 15.0 % [facility] Lymphocytes Abs 2.4 0.9 - 3.2 [facility] x10(3)/[facility] LABORATORY Monocytes % 8.2 % [facility] Monocyte Abs 1.3 (H) 0.3 - 0.9 [facility] x10(3)/[facility] LABORATORY Eosinophils % 0.6 % [facility] Eosinophils Abs 0.1 0.0 - 0.4 [facility] x10(3)/[facility] LABORATORY Basophils % 0.5 % [facility] Basophils Abs 0.1 0.0 - 0.1 [facility] x10(3)/[facility] LABORATORY Immature Gran % 4.60 % [facility] Comment: Immature granulocytes(IG's)percentage an d absolute count will include metamyelocytes, myelocytes, and promyelo cytes. Blood smears from CBCs yielding IG's will be scanned manually for concor dance. If this scan disagrees with the automated IG or if promyelocytes are not ed, a manual differential will be performed. Beba Gran Abs 0.73 (H) 0.00 - 0.04 x10(3)/[facility] LABORATORY Specimen Anatomical Collection Method Collection Time Receive d Time (Source) Location / / Volume Laterality Blood 07/07/2021 6:14 AM 6:53 EDT AM EDT Resulting Agency Comment Spec In Lab Benita Leblanc MD HEMATOLOGY ORDERABLES Performing Organization Address City/State/[place] [address] (ABNORMAL) Hemogram (07/07/2021 6:14 AM EDT) Analysis Performed At Patho logist Time Signature WBC 15.9 (H) 4.0 - 9.5 [facility] x10(3)/[facility] LABORATORY RBC 4.37 (L) 4.58 - [facility] 5.54 [facility] x10(6)/[facility] LABORATORY Hemoglobin 13.2 (L) 13.7 - [facility] 16.[facility] g/dL [facility]ORY Hematocrit 38.6 (L) 40.5 - [facility] 48.5 % [facility] LABORATORY MCV 88.3 82.9 - [facility] 93.1 [facility] LABORATORY MCH 30.2 27.5 - [facility] 32.1 pg [facility] LABORATORY MCHC 34.2 32.0 - [facility] 35.7 g/dL [facility] Platelets 358 (H) 145 - 357 [facility] HOSPITAL x10(3)/[facility] LABORATORY RDWSD 40.8 36.0 - [facility]0 [facility] LABORATORY RDWCV 12.7 11.4 - [place] TAMAYO 13.8 % [facility] LABORATORY MPV 10.1 7.6 - 12.9 [facility] LABORATORY nRBC % Auto 0.0 % [facility] LABORATORY nRBC Abs Auto 0.000 0.000 - [place] TAMAYO 0.000 [facility] x10(3)/[facility] LABORATORY Specimen Anatomical Collection Method Collection Time Receive d Time (Source) Location / / Volume Laterality Blood 07/07/2021 6:14 AM 2 6:53 EDT AM EDT Resulting Agency Comment Spec In Lab Benita Leblanc MD HEMATOLOGY ORDERABLES Performing Organization Address City/State/ZIP Code Phon e Number [address] Phosphorus (07/07/2021 6:14 AM EDT) athologist Signature Phosphorus 3.0 2.5 - 4.5 [facility] mg/dL [facility] LABORATORY Specimen Anatomical Collection Method Collection Time Receive d Time (Source) Location / / Volume Laterality Blood 07/07/2021 6:14 AM 2 6:54 EDT AM EDT Resulting Agency Comment Spec In Lab Benita Leblanc MD CHEMISTRY ORDERABLES Performing Organization Address City/[facility]/[place] [address] Magnesium (07/07/2021 6:14 AM EDT) athologist Signature Magnesium 0.87 0.69 - 1.07 [facility]/L [facility] LABORATORY Specimen Anatomical Collection Method Collection Time Receive d Time (Source) Location / / Volume Laterality Blood 07/07/2021 6:14 AM 2 6:54 EDT AM EDT Resulting Agency Comment Spec In Lab Benita Leblanc MD CHEMISTRY ORDERABLES Performing Organization Address City/[facility]/[place] [address] (ABNORMAL) Basic Metabolic Panel (non-fasting) (07/07/2021 6:14 AM EDT) athologist Signature Glucose Lvl 99 65 - 199 [facility] mg/dL [facility] LABORATORY Comment: Diabetes: >=200 mg/dL plus symp toms BUN 24 (H) 10 - 20 mg/dL [facility] LABORATORY Creatinine 0.84 0.80 - 1.50 mg/dL [facility] LABORATORY Sodium 130 (L) 135 - 145 mmol/L [facility] LABORATORY Potassium 4.8 3.5 - 5.0 mmol/L [facility] LABORATORY Comment: Please note: ??Patients with WBC >100,00 0 may have falsely elevated Potassium levels. ??For accurate Potassium quantif ication in these patients send serum separator tube (gold top) for subsequent determinations. ??Contact the Clinical Chemistry Laboratory if there are any qu estions. Chloride 97 (L) 98 - 107 mmol/L [facility] LABORATORY CO2 24 22 - 31 mmol/L [facility] LABORATORY Anion Gap 9 5 - 15 mmol/L [facility] LABORATORY Calcium 8.4 (L) 8.5 - 10.5 mg/dL [facility] LABORATORY Estimated GFR 86 >=60 mL/min/1.73 m?? [facility] LABORATORY Comment: This patient? s estimated [...] / Volume Laterality Blood 07/07/2021 6:14 AM 6:54 EDT AM EDT Resulting Agency Comment Spec In Lab Benita Leblanc MD CHEMISTRY ORDERABLES Performing Organization Address City/State/ZIP [place] [address] (ABNORMAL) Basic Metabolic Panel (non-fasting) (07/06/2021 6:27 PM EDT) P athologist Signature Glucose Lvl 120 65 - 199 [facility] mg/dL [facility] LABORATORY Comment: Diabetes: >=200 mg/dL plus symp toms BUN 29 (H) 10 - 20 mg/dL [facility] LABORATORY Creatinine 0.92 0.80 - 1.50 mg/dL [facility] LABORATORY Sodium 133 (L) 135 - 145 mmol/L [facility] LABORATORY Potassium 4.7 3.5 - 5.0 mmol/L [facility] LABORATORY Comment: Please note: ??Patients with WBC >100,00 0 may have falsely elevated Potassium levels. ??For accurate Potassium quantif ication in these patients send serum separator tube (gold top) for subsequent determinations. ??Contact the Clinical Chemistry Laboratory if there are any qu estions. Chloride 96 (L) 98 - 107 mmol/L [facility] LABORATORY CO2 25 22 - 31 mmol/L [facility] LABORATORY Anion Gap 12 5 - 15 mmol/L [facility] LABORATORY Calcium 8.7 8.5 - 10.5 mg/dL [facility] LABORATORY Estimated GFR 82 >=60 mL/min/1.73 m?? [facility] LABORATORY Comment: This patient? s estimated [...] Organization Address City/State/ZIP [place] [address] (ABNORMAL) Differential, Automated (07/06/2021 6:23 AM EDT) [facility] gist Method Time Signature Neutrophils % 67.6 % [facility] LABORATORY Neutr Abs (ANC) 10.25 (H) 1.70 - [facility] 6.10 [facility] x10(3)/[facility] LABORATORY Lymphocytes % 18.7 % [facility] LABORATORY Lymphocytes Abs 2.8 0.9 - 3.2 [facility] x10(3)/[facility] LABORATORY Monocytes % 7.9 % [facility] LABORATORY Monocyte Abs 1.2 (H) 0.3 - 0.9 [facility] x10(3)/[facility] LABORATORY Eosinophils % 0.9 % [facility] LABORATORY Eosinophils Abs 0.1 0.0 - 0.4 [facility] x10(3)/[facility] LABORATORY Basophils % 0.7 % [facility] LABORATORY Basophils Abs 0.1 0.0 - 0.1 [facility] x10(3)/[facility] LABORATORY Immature Gran % 4.20 % [facility] LABORATORY Comment: Immature granulocytes(IG's)percentage an d absolute count will include metamyelocytes, myelocytes, and promyelo cytes. Blood smears from CBCs yielding IG's will be scanned manually for concor dance. If this scan disagrees with the automated IG or if promyelocytes are not ed, a manual differential will be performed. Beba Gran Abs 0.64 (H) 0.00 - 0.04 x10(3)/[facility] LABORATORY Specimen Anatomical Collection Method Collection Time Receive d Time (Source) Location / / Volume Laterality Blood 07/06/2021 6:23 AM 2 6:55 EDT AM EDT Resulting Agency Comment Spec In Lab Benita Leblanc MD HEMATOLOGY ORDERABLES Performing Organization Address City/State/ZIP Code Phon e Number [place] [id number] HOSPITAL LAB[address]ATORY Drive (ABNORMAL) Hemogram (07/06/2021 6:23 AM EDT) Analysis Performed At Patho logist Time Signature WBC 15.2 (H) 4.0 - 9.5 [facility] x[facility](3[facility] LABORATORY RBC 4.58 4.58 - [place] 5.54 [facility] x10(6)/[facility] LABORATORY Hemoglobin 13.6 (L) 13.7 - [facility] 16.5 g/dL [facility] LABORATORY Hematocrit 40.4 (L) 40.5 - [facility] 48.5 % [facility] LABORATORY MCV 88.2 82.9 - [facility] 93.1 [facility] LABORATORY MCH 29.7 27.5 - [place] 32.1 pg [facility] LABORATORY MCHC 33.7 32.0 - [place] 35.7 g/dL [facility] LABORATORY Platelets 369 (H) 145 - 357 [facility] x10(3)/[facility] LABORATORY RDWSD 40.1 36.0 - [facility] [place] 45.0 [facility] LABORATORY RDWCV 12.4 11.4 - [facility] 13.8 % [facility] LABORATORY MPV 10.1 7.6 - 12.9 [facility] LABORATORY nRBC % Auto 0.0 % [facility] LABORATORY nRBC Abs Auto 0.000 0.000 - [place] 0.000 [facility] x10(3)/[facility] LABORATORY Specimen Anatomical Collection Method Collection Time Receive d Time (Source) Location / / Volume Laterality Blood 07/06/2021 6:23 AM 2 6:55 EDT AM EDT Resulting Agency Comment Spec In Lab Benita Leblanc MD HEMATOLOGY ORDERABLES Performing Organization Address City/State/ZIP [place] [address] Phosphorus (07/06/2021 6:23 AM EDT) athologist Signature Phosphorus 3.3 2.5 - 4.5 [facility] mg/dL [facility] LABORATORY Specimen Anatomical Collection Method Collection Time Receive d Time (Source) Location / / Volume Laterality Blood 07/06/2021 6:23 AM 2 6:55 EDT AM EDT Resulting Agency Comment Spec In Lab Benita Leblanc MD CHEMISTRY ORDERABLES Performing Organization Address City/[facility]/ZIP Code Phon e Number [address] Magnesium (07/06/2021 6:23 AM EDT) athologist Signature Magnesium 0.93 0.69 - 1.07 [facility] mmol/L [facility] LABORATORY Specimen Anatomical Collection Method Collection Time Receive d Time (Source) Location / / Volume Laterality Blood 07/06/2021 6:23 AM 2 6:55 EDT AM EDT Resulting Agency Comment Spec In Lab Benita Leblanc MD CHEMISTRY ORDERABLES Performing Organization Address City/[facility]/[place] [address] (ABNORMAL) Basic Metabolic Panel (non-fasting) (07/06/2021 6:23 AM EDT) athologist Signature Glucose Lvl 99 65 - 199 [facility] mg/dL [facility] LABORATORY Comment: Diabetes: >=200 mg/dL plus symp toms BUN 24 (H) 10 - 20 mg/dL [facility] LABORATORY Creatinine 0.92 0.80 - 1.50 mg/dL [facility] LABORATORY Sodium 131 (L) 135 - 145 mmol/L [facility] LABORATORY Potassium 4.6 3.5 - 5.0 mmol/L [facility] LABORATORY Comment: Please note: ??Patients with WBC >100,00 0 may have falsely elevated Potassium levels. ??For accurate Potassium quantif ication in these patients send serum separator tube (gold top) for subsequent determinations. ??Contact the Clinical Chemistry Laboratory if there are any qu estions. Chloride 94 (L) 98 - 107 mmol/L [facility] LABORATORY CO2 24 22 - 31 mmol/L [facility] LABORATORY Anion Gap 13 5 - 15 mmol/L [facility] LABORATORY Calcium 8.6 8.5 - 10.5 mg/dL [facility] LABORATORY Estimated GFR 82 >=60 mL/min/1.73 m?? [facility] LABORATORY Comment: This patient? s estimated [...] Organization Address City/State/[place] [address] (ABNORMAL) Basic Metabolic Panel (non-fasting) (07/05/2021 6:41 PM EDT) P athologist Signature Glucose Lvl 133 65 - 199 [facility] mg/dL [facility] LABORATORY Comment: Diabetes: >=200 mg/dL plus symp toms BUN 23 (H) 10 - 20 mg/dL [facility] LABORATORY Creatinine 0.94 0.80 - 1.50 mg/dL [facility] LABORATORY Sodium 131 (L) 135 - 145 mmol/L [facility] LABORATORY Potassium 4.5 3.5 - 5.0 mmol/L [facility] LABORATORY Comment: Please note: ??Patients with WBC >100,00 0 may have falsely elevated Potassium levels. ??For accurate Potassium quantif ication in these patients send serum separator tube (gold top) for subsequent determinations. ??Contact the Clinical Chemistry Laboratory if there are any qu estions. Chloride 97 (L) 98 - 107 mmol/L [facility] LABORATORY CO2 22 22 - 31 mmol/L [facility] LABORATORY Anion Gap 12 5 - 15 mmol/L [facility] LABORATORY Calcium 8.3 (L) 8.5 - 10.5 mg/dL [facility] LABORATORY Estimated GFR 80 >=60 mL/min/1.73 m?? [facility] LABORATORY Comment: This patient? s estimated [...] / Volume Laterality Blood 07/05/2021 6:41 PM 2 6:49 EDT PM EDT Resulting Agency Comment Spec In Lab Benita Leblanc MD CHEMISTRY ORDERABLES Performing Organization Address City/State/ZIP [place] [address] COVID-19 PCR (07/05/2021 1:22 PM EDT) [facility] Method Time Signature SARS-CoV-2 Not Detected Not Detected [facility]AB[facility] RNA PCR [facility] LABORATORY Comment: This result should [...] using the Simplexa COVID-19 Direct Assay by [employer] franks as authorized by the FDA issued Emergency Use Authorization (EUA). This assay is intended for In-vitro Diagnostic (IVD) use with nasopharyngeal swabs collected from individuals meeting the CDC criteria for testing. e assay is performed based on the instructions for use and additional guid ance provided by the FDA. Testing is performed in the Microbiology Laboratory within the Department of Pathology and Laboratory Medicine at [facility], certified under the Clinical Laboratory Improvement Amendmen [...] fact sheets at the following FDA website: https://www.fda.gov/medical-devices/wlommyoxdkv-feylyut-5310-krxfl-00-txqwtpxaa- kad-jqrqtckvrkqecc-oamfbrn-devices/olrmw-yelscmpwqme-casc SARS-CoV-2 Source [employer] Swab [facility] LABORATORY Specimen (Source) Anatomical Collection Method Collection Time Re ceived Time Location / / Volume Laterality Nasopharyngeal Swab 07/05/2021 1:22 07/05 PM EDT 2:27 PM EDT Comment: Symptoms->Surveillance Resulting Agency Comment Spec In Lab Benita Leblanc MD MICROBIOLOGY - GENERAL ORDER CHENG Performing Organization Address City/[facility]/[place] [address] POCT Glucose (07/05/2021 7:27 AM EDT) P athologist Signature POC Glucose 106 65 - 199 [facility] mg/dL [facility] LABORATORY Comment: Supplemental ranges: <140 mg/dL before meals <180 mg/dL all other times of the day Specimen Anatomical Collection Method Collection Time Receive d Time (Source) Location / / Volume Laterality Blood 07/05/2021 7:27 AM 7:27 EDT AM EDT Benita Leblanc MD POINT OF CARE TEST ORDERABLE S Performing Organization Address City/[facility]/ZIP Code Phon e Number [address] (ABNORMAL) Differential, Automated (07/05/2021 6:00 AM EDT) Patholo gist Method Time Signature Neutrophils % 75.8 % [facility] LABORATORY Neutr Abs (ANC) 10.55 (H) 1.70 - [facility] 6.10 [facility] x10(3)/[facility] LABORATORY Lymphocytes % 15.2 % [facility] LABORATORY Lymphocytes Abs 2.1 0.9 - 3.2 [facility] x10(3)/[facility] LABORATORY Monocytes % 6.1 % [facility] LABORATORY Monocyte Abs 0.8 0.3 - 0.9 [facility] x10(3)/[facility] LABORATORY Eosinophils % 0.2 % [facility] LABORATORY Eosinophils Abs 0.0 0.0 - 0.4 [facility] x10(3)/[facility] LABORATORY Basophils % 0.3 % [facility] LABORATORY Basophils Abs 0.0 0.0 - 0.1 [facility] x10(3)/[facility] LABORATORY Immature Gran % 2.40 % [facility] LABORATORY Comment: Immature granulocytes(IG's)percentage an d absolute count will include metamyelocytes, myelocytes, and promyelo cytes. Blood smears from CBCs yielding IG's will be scanned manually for concor danrussell. If this scan disagrees with the automated IG or if promyelocytes are not ed, a manual differential will be performed. Beba Gran Abs 0.34 (H) 0.00 - 0.04 x10(3)/[facility] LABORATORY Specimen Anatomical Collection Method Collection Time Receive d Time (Source) Location / / Volume Laterality Blood 07/05/2021 6:00 AM 6:28 EDT AM EDT Resulting Agency Comment Spec In Lab Benita Leblanc MD HEMATOLOGY ORDERABLES Performing Organization Address City/State/[place] [address] (ABNORMAL) Hemogram (07/05/2021 6:00 AM EDT) Analysis Performed At Patho logist Time Signature WBC 13.9 (H) 4.0 - 9.5 [facility] x10(3)/[facility] LABORATORY RBC 4.44 (L) 4.58 - [facility] 5.54 [facility] x10(6)/[facility] LABORATORY Hemoglobin 13.1 (L) 13.7 - [facility] 16.5 g/dL [facility] LABORATORY Hematocrit 38.3 (L) 40.5 - [facility] 48.5 % [facility] LABORATORY MCV 86.3 82.9 - [facility] 93.1 [facility] LABORATORY MCH 29.5 27.5 - [facility] 32.1 pg [facility] LABORATORY MCHC 34.2 32.0 - [facility] 35.7 g/dL [facility] LABORATORY Platelets 344 145 - 357 [facility] x10(3)/[facility] LABORATORY RDWSD 38.4 36.0 - [facility] 45.0 [facility] LABORATORY RDWCV 12.2 11.4 - [place] TAMAYO 13.8 % [facility] LABORATORY MPV 10.2 7.6 - 12.9 [facility] [facility] LABORATORY nRBC % Auto 0.0 % [facility] LABORATORY nRBC Abs Auto 0.000 0.000 - [place] TAMAYO 0.000 [facility] x10(3)/[facility] LABORATORY Specimen Anatomical Collection Method Collection Time Receive d Time (Source) Location / / Volume Laterality Blood 07/05/2021 6:00 AM 2 6:28 EDT AM EDT Resulting Agency Comment Spec In Lab Benita Leblanc MD HEMATOLOGY ORDERABLES Performing Organization Address City/State/ZIP Code Phon e Number [address] Phosphorus (07/05/2021 6:00 AM EDT) P athologist Signature Phosphorus 3.3 2.5 - 4.5 [facility] mg/dL [facility] LABORATORY Specimen Anatomical Collection Method Collection Time Receive d Time (Source) Location / / Volume Laterality Blood 07/05/2021 6:00 AM 2 6:28 EDT AM EDT Resulting Agency Comment Spec In Lab Benita Leblanc MD CHEMISTRY ORDERABLES Performing Organization Address City/State/ZIP Code Phon e Number [address] Magnesium (07/05/2021 6:00 AM EDT) P athologist Signature Magnesium 0.89 0.69 - 1.07 [facility] [place] mmol/L [facility] LABORATORY Specimen Anatomical Collection Method Collection Time Receive d Time (Source) Location / / Volume Laterality Blood 07/05/2021 6:00 AM 2 6:28 EDT AM EDT Resulting Agency Comment Spec In Lab Benita Leblanc MD CHEMISTRY ORDERABLES Performing Organization Address City/State/[place] [address] (ABNORMAL) Basic Metabolic Panel (non-fasting) (07/05/2021 6:00 AM EDT) athologist Signature Glucose Lvl 114 65 - 199 [facility] mg/dL [facility] LABORATORY Comment: Diabetes: >=200 mg/dL plus symp toms BUN 24 (H) 10 - 20 mg/dL [facility] LABORATORY Creatinine 0.76 (L) 0.80 - 1.50 mg/dL [facility] LABORATORY Sodium 130 (L) 135 - 145 mmol/L [facility] LABORATORY Potassium 4.7 3.5 - 5.0 mmol/L [facility] LABORATORY Comment: Please note: ??Patients with WBC >100,00 0 may have falsely elevated Potassium levels. ??For accurate Potassium quantif ication in these patients send serum separator tube (gold top) for subsequent determinations. ??Contact the Clinical Chemistry Laboratory if there are any qu estions. Chloride 96 (L) 98 - 107 mmol/L [facility] LABORATORY CO2 23 22 - 31 mmol/L [facility] LABORATORY Anion Gap 11 5 - 15 mmol/L [facility] LABORATORY Calcium 8.5 8.5 - 10.5 mg/dL [facility] LABORATORY Estimated GFR 90 >=60 mL/min/1.73 m?? [facility] LABORATORY Comment: This patient? s estimated [...] Organization Address City/State/[place] [address] POCT Glucose (07/05/2021 3:56 AM EDT) athologist Signature POC Glucose 130 65 - 199 [place] mg/dL [facility] LABORATORY Comment: Supplemental ranges: <140 mg/dL before meals <180 mg/dL all other times of the day Specimen Anatomical Collection Method Collection Time Receive d Time (Source) Location / / Volume Laterality Blood 07/05/2021 3:56 AM 3:56 EDT AM EDT Benita Leblanc MD POINT OF CARE TEST ORDERABLE S Performing Organization Address City/[facility]/ZIP Code Phon e Number [address] POCT Glucose (07/04/2021 11:44 PM EDT) athologist Signature POC Glucose 139 65 - 199 [place] mg/dL [facility] LABORATORY Comment: Supplemental ranges: <140 mg/dL before meals <180 mg/dL all other times of the day Specimen Anatomical Collection Method Collection Time Receive d Time (Source) Location / / Volume Laterality Blood 07/04/2021 11:44 07/04/2021 PM EDT 11:44 PM EDT Benita Leblanc MD POINT OF CARE TEST ORDERABLE S Performing Organization Address City/[facility]/[place] [address] POCT Glucose (07/04/2021 7:31 PM EDT) athologist Signature POC Glucose 141 65 - 199 [place] mg/dL [facility] LABORATORY Comment: Supplemental ranges: <140 mg/dL before meals <180 mg/dL all other times of the day Specimen Anatomical Collection Method Collection Time Receive d Time (Source) Location / / Volume Laterality Blood 07/04/2021 7:31 PM 7:31 EDT PM EDT Benita Leblanc MD POINT OF CARE TEST ORDERABLE S Performing Organization Address City/State/[place] [address] POCT Glucose (07/04/2021 4:44 PM EDT) athologist Signature POC Glucose 121 65 - 199 [facility]/dL [facility] LABORATORY Comment: Supplemental ranges: <140 mg/dL before meals <180 mg/dL all other times of the day Specimen Anatomical Collection Method Collection Time Receive d Time (Source) Location / / Volume Laterality Blood 07/04/2021 4:44 PM 4:44 EDT PM EDT Benita Leblanc MD POINT OF CARE TEST ORDERABLE S Performing Organization Address City/State/[place] [address] (ABNORMAL) Basic Metabolic Panel (non-fasting) (07/04/2021 12:58 PM EDT) athologist Signature Glucose Lvl 144 65 - 199 [facility] mg/dL [facility] LABORATORY Comment: Diabetes: >=200 mg/dL plus symp toms BUN 25 (H) 10 - 20 mg/dL [facility] LABORATORY Creatinine 1.08 0.80 - 1.50 mg/dL [facility] LABORATORY Sodium 136 135 - 145 mmol/L [facility] LABORATORY Potassium 4.6 3.5 - 5.0 mmol/L [facility] LABORATORY Comment: Please note: ??Patients with WBC >100,00 0 may have falsely elevated Potassium levels. ??For accurate Potassium quantif ication in these patients send serum separator tube (gold top) for subsequent determinations. ??Contact the Clinical Chemistry Laboratory if there are any qu estions. Chloride 98 98 - 107 mmol/L [facility] LABORATORY CO2 26 22 - 31 mmol/L [facility] LABORATORY Anion Gap 12 5 - 15 mmol/L [facility] LABORATORY Calcium 8.9 8.5 - 10.5 mg/dL [facility] LABORATORY Estimated GFR 67 >=60 mL/min/1.73 m?? [facility] LABORATORY Comment: This patient? s estimated [...] Organization Address City/State/ZIP Code Phon e Number [address] POCT Glucose (07/04/2021 11:47 AM EDT) athologist Signature POC Glucose 121 65 - 199 [facility]/dL [facility] LABORATORY Comment: Supplemental ranges: <140 mg/dL before meals <180 mg/dL all other times of the day Specimen Anatomical Collection Method Collection Time Receive d Time (Source) Location / / Volume Laterality Blood 07/04/2021 11:47 07/04/2021 AM EDT 11:47 AM EDT Benita Leblanc MD POINT OF CARE TEST ORDERABLE S Performing Organization Address City/State/ZIP Code Phon e Number [address] POCT Glucose (07/04/2021 7:39 AM EDT) P athologist Signature POC Glucose 101 65 - 199 [facility] LABORATORY Comment: Supplemental ranges: <140 mg/dL before meals <180 mg/dL all other times of the day Specimen Anatomical Collection Method Collection Time Receive d Time (Source) Location / / Volume Laterality Blood 07/04/2021 7:39 AM 2 7:39 EDT AM EDT Benita Leblanc MD POINT OF CARE TEST ORDERABLE S Performing Organization Address City/State/ZIP [place] [address] (ABNORMAL) Differential, Automated (07/04/2021 6:28 AM EDT) [facility] Method Time Signature Neutrophils % 75.3 % [facility] LABORATORY Neutr Abs (ANC) 9.56 (H) 1.70 - [facility] 6.10 [facility] x10(3)/[facility] LABORATORY Lymphocytes % 16.5 % [facility] LABORATORY Lymphocytes Abs 2.1 0.9 - 3.2 [facility] x10(3)/[facility] LABORATORY Monocytes % 6.2 % [facility] LABORATORY Monocyte Abs 0.8 0.3 - 0.9 [facility] x10(3)/[facility] LABORATORY Eosinophils % 0.1 % [facility] LABORATORY Eosinophils Abs 0.0 0.0 - 0.4 [facility] x10(3)/[facility] LABORATORY Basophils % 0.2 % [facility] LABORATORY Basophils Abs 0.0 0.0 - 0.1 [facility] x10(3)/[facility] LABORATORY Immature Gran % 1.70 % [facility] LABORATORY Comment: Immature granulocytes(IG's)percentage an d absolute count will include metamyelocytes, myelocytes, and promyelo cytes. Blood smears from CBCs yielding IG's will be scanned manually for concor dance. If this scan disagrees with the automated IG or if promyelocytes are not ed, a manual differential will be performed. Beba Gran Abs 0.21 (H) 0.00 - 0.04 x10(3)/[facility] LABORATORY Specimen Anatomical Collection Method Collection Time Receive d Time (Source) Location / / Volume Laterality Blood 07/04/2021 6:28 AM 2 6:52 EDT AM EDT Resulting Agency Comment Spec In Lab Benita Leblanc MD HEMATOLOGY ORDERABLES Performing Organization Address City/State/ZIP [place] [address] (ABNORMAL) Hemogram (07/04/2021 6:28 AM EDT) Analysis Performed At Patho logist Time Signature WBC 12.7 (H) 4.0 - 9.5 [facility] x[facility](3[facility] LABORATORY RBC 4.45 (L) 4.58 - [facility] 5.54 [facility] x10(6)/[facility] LABORATORY Hemoglobin 13.5 (L) 13.7 - [facility] 16.5 g/dL [facility] LABORATORY Hematocrit 39.4 (L) 40.5 - [facility] 48.5 % [facility] LABORATORY MCV 88.5 82.9 - [facility] 93.1 [facility] LABORATORY MCH 30.3 27.5 - [facility] 32.1 pg [facility] LABORATORY MCHC 34.3 32.0 - [facility] 35.7 g/dL [facility] LABORATORY Platelets 335 145 - 357 [facility] x10(3)/[facility] LABORATORY RDWSD 39.9 36.0 - [facility] [place] 45.0 [facility] LABORATORY RDWCV 12.3 11.4 - [facility] [place] 13.8 % [facility] LABORATORY MPV 10.2 7.6 - 12.9 [facility] LABORATORY nRBC % Auto 0.0 % [facility] LABORATORY nRBC Abs Auto 0.000 0.000 - [facility] [place] 0.000 [facility] x10(3)/[facility] LABORATORY Specimen Anatomical Collection Method Collection Time Receive d Time (Source) Location / / Volume Laterality Blood 07/04/2021 6:28 AM 6:52 EDT AM EDT Resulting Agency Comment Spec In Lab Benita Leblanc MD HEMATOLOGY ORDERABLES Performing Organization Address City/State/ZIP [place] [address] Phosphorus (07/04/2021 6:28 AM EDT) P athologist Signature Phosphorus 3.3 2.5 - 4.5 [facility] mg/dL [facility] LABORATORY Specimen Anatomical Collection Method Collection Time Receive d Time (Source) Location / / Volume Laterality Blood 07/04/2021 6:28 AM 2 6:52 EDT AM EDT Resulting Agency Comment Spec In Lab Benita Leblanc MD CHEMISTRY ORDERABLES Performing Organization Address City/[facility]/ZIP Code Phon e Number [address] Magnesium (07/04/2021 6:28 AM EDT) athologist Signature Magnesium 0.92 0.69 - 1.07 [facility] mmol/L [facility] LABORATORY Specimen Anatomical Collection Method Collection Time Receive d Time (Source) Location / / Volume Laterality Blood 07/04/2021 6:28 AM 2 6:52 EDT AM EDT Resulting Agency Comment Spec In Lab Benita Leblanc MD CHEMISTRY ORDERABLES Performing Organization Address City/[facility]/[place] [address] (ABNORMAL) Basic Metabolic Panel (non-fasting) (07/04/2021 6:28 AM EDT) athologist Signature Glucose Lvl 118 65 - 199 [facility] mg/dL [facility] LABORATORY Comment: Diabetes: >=200 mg/dL plus symp toms BUN 22 (H) 10 - 20 mg/dL [facility] LABORATORY Creatinine 0.85 0.80 - 1.50 mg/dL [facility] LABORATORY Sodium 135 135 - 145 mmol/L [facility] LABORATORY Potassium 5.0 3.5 - 5.0 mmol/L [facility] LABORATORY Comment: Please note: ??Patients with WBC >100,00 0 may have falsely elevated Potassium levels. ??For accurate Potassium quantif ication in these patients send serum separator tube (gold top) for subsequent determinations. ??Contact the Clinical Chemistry Laboratory if there are any qu estions. Chloride 99 98 - 107 mmol/L [facility] LABORATORY CO2 24 22 - 31 mmol/L [facility] LABORATORY Anion Gap 12 5 - 15 mmol/L [facility] LABORATORY Calcium 8.8 8.5 - 10.5 mg/dL [facility] LABORATORY Estimated GFR 86 >=60 mL/min/1.73 m?? [facility] LABORATORY Comment: This patient? s estimated [...] Organization Address City/State/ZIP Code Phon e Number [address] POCT Glucose (07/04/2021 4:19 AM EDT) P athologist Signature POC Glucose 123 65 - 199 [facility] mg/dL [facility] LABORATORY Comment: Supplemental ranges: <140 mg/dL before meals <180 mg/dL all other times of the day Specimen Anatomical Collection Method Collection Time Receive d Time (Source) Location / / Volume Laterality Blood 07/04/2021 4:19 AM 2 4:19 EDT AM EDT Benita Leblanc MD POINT OF CARE TEST ORDERABLE S Performing Organization Address City/State/[place] [address] POCT Glucose (07/03/2021 11:52 PM EDT) athologist Signature POC Glucose 128 65 - 199 [facility] mg/dL [facility] LABORATORY Comment: Supplemental ranges: <140 mg/dL before meals <180 mg/dL all other times of the day Specimen Anatomical Collection Method Collection Time Receive d Time (Source) Location / / Volume Laterality Blood 07/03/2021 11:52 07/03/2021 PM EDT 11:52 PM EDT Benita Leblanc MD POINT OF CARE TEST ORDERABLE S Performing Organization Address City/State/ZIP Code Phon e Number [address] POCT Glucose (07/03/2021 8:33 PM EDT) athologist Signature POC Glucose 138 65 - 199 [facility]dL [facility] LABORATORY Comment: Supplemental ranges: <140 mg/dL before meals <180 mg/dL all other times of the day Specimen Anatomical Collection Method Collection Time Receive d Time (Source) Location / / Volume Laterality Blood 07/03/2021 8:33 PM 2 8:33 EDT PM EDT Benita Leblanc MD POINT OF CARE TEST ORDERABLE S Performing Organization Address City/State/ZIP Code Phon e Number [address] Osmolality, urine, random (07/03/2021 4:17 PM EDT) athologist Signature U Osmolality 1,039 50 - 1,200 [facility] mOsm/kg [facility] LABORATORY Specimen Anatomical Collection Method Collection Time Receive d Time (Source) Location / / Volume Laterality Urine 07/03/2021 4:17 PM 2 4:29 EDT PM EDT Resulting Agency Comment Spec In Lab Benita Leblanc MD URINE ORDERABLES Performing Organization Address City/[facility]/ZIP Code Phon e Number [address] Sodium, urine, random (07/03/2021 4:17 PM EDT) athologist Signature U Sodium 98 mmol/L [facility] LABORATORY Specimen Anatomical Collection Method Collection Time Receive d Time (Source) Location / / Volume Laterality Urine 07/03/2021 4:17 PM 2 4:29 EDT PM EDT Resulting Agency Comment Spec In Lab Benita Leblanc MD URINE ORDERABLES Performing Organization Address City/State/[place] [address] POCT Glucose (07/03/2021 3:23 PM EDT) athologist Signature POC Glucose 169 65 - 199 [facility]/dL [facility] LABORATORY Comment: Supplemental ranges: <140 mg/dL before meals <180 mg/dL all other times of the day Specimen Anatomical Collection Method Collection Time Receive d Time (Source) Location / / Volume Laterality Blood 07/03/2021 3:23 PM 2 3:23 EDT PM EDT Benita Leblanc MD POINT OF CARE TEST ORDERABLE S Performing Organization Address City/State/[place] [address] (ABNORMAL) Basic Metabolic Panel (non-fasting) (07/03/2021 11:58 AM EDT) P athologist Signature Glucose Lvl 108 65 - 199 [facility] mg/dL [facility] LABORATORY Comment: Diabetes: >=200 mg/dL plus symp toms BUN 24 (H) 10 - 20 mg/dL [facility] LABORATORY Creatinine 0.89 0.80 - 1.50 mg/dL [facility] LABORATORY Sodium 134 (L) 135 - 145 mmol/L [facility] LABORATORY Potassium 4.3 3.5 - 5.0 mmol/L [facility] LABORATORY Comment: Please note: ??Patients with WBC >100,00 0 may have falsely elevated Potassium levels. ??For accurate Potassium quantif ication in these patients send serum separator tube (gold top) for subsequent determinations. ??Contact the Clinical Chemistry Laboratory if there are any qu estions. Chloride 98 98 - 107 mmol/L [facility] LABORATORY CO2 25 22 - 31 mmol/L [facility] LABORATORY Anion Gap 11 5 - 15 mmol/L [facility] LABORATORY Calcium 8.5 8.5 - 10.5 mg/dL [facility] LABORATORY Estimated GFR 84 >=60 mL/min/1.73 m?? [facility] LABORATORY Comment: This patient? s estimated [...] Organization Address City/State/ZIP Code Phon e Number [address] POCT Glucose (07/03/2021 7:35 AM EDT) P athologist Signature POC Glucose 115 65 - 199 [facility] mg/dL [facility] LABORATORY Comment: Supplemental ranges: <140 mg/dL before meals <180 mg/dL all other times of the day Specimen Anatomical Collection Method Collection Time Receive d Time (Source) Location / / Volume Laterality Blood 07/03/2021 7:35 AM 7:35 EDT AM EDT Benita Leblanc MD POINT OF CARE TEST ORDERABLE S Performing Organization Address City/State/[place] [address] POCT Glucose (07/03/2021 4:12 AM EDT) P athologist Signature POC Glucose 133 65 - 199 [facility] mg/dL [facility] LABORATORY Comment: Supplemental ranges: <140 mg/dL before meals <180 mg/dL all other times of the day Specimen Anatomical Collection Method Collection Time Receive d Time (Source) Location / / Volume Laterality Blood 07/03/2021 4:12 AM 4:12 EDT AM EDT Benita Leblanc MD POINT OF CARE TEST ORDERABLE S Performing Organization Address City/State/ZIP [place] [address] (ABNORMAL) Differential, Automated (07/03/2021 12:42 AM EDT) Patholo gist Method Time Signature Neutrophils % 73.0 % [facility] LABORATORY Neutr Abs (ANC) 8.99 (H) 1.70 - [facility] 6.10 [facility] x10(3)/[facility] LABORATORY Lymphocytes % 15.3 % [facility] LABORATORY Lymphocytes Abs 1.9 0.9 - 3.2 [facility] x10(3)/[facility] LABORATORY Monocytes % 10.2 % [facility] LABORATORY Monocyte Abs 1.3 (H) 0.3 - 0.9 [facility] x10(3)/[facility] LABORATORY Eosinophils % 0.6 % [facility] LABORATORY Eosinophils Abs 0.1 0.0 - 0.4 [facility] x10(3)/[facility] LABORATORY Basophils % 0.1 % [facility] LABORATORY Basophils Abs 0.0 0.0 - 0.1 [facility] x10(3)/[facility] LABORATORY Immature Gran % 0.80 % [facility] LABORATORY Comment: Immature granulocytes(IG's)percentage an d absolute count will include metamyelocytes, myelocytes, and promyelo cytes. Blood smears from CBCs yielding IG's will be scanned manually for concor dance. If this scan disagrees with the automated IG or if promyelocytes are not ed, a manual differential will be performed. Beba Gran Abs 0.10 (H) 0.00 - 0.04 x10(3)/[facility] LABORATORY Specimen Anatomical Collection Method Collection Time Receive d Time (Source) Location / / Volume Laterality Blood 07/03/2021 12:42 07/03/2021 1:05 AM EDT AM EDT Resulting Agency Comment Spec In Lab Benita Leblanc MD HEMATOLOGY ORDERABLES Performing Organization Address City/State/ZIP [place] [address] (ABNORMAL) Hemogram (07/03/2021 12:42 AM EDT) Analysis Performed At Patho logist Time Signature WBC 12.3 (H) 4.0 - 9.5 [facility] x10(3)/[facility] LABORATORY RBC 4.22 (L) 4.58 - [facility] 5.54 [facility] x10(6)/[facility] LABORATORY Hemoglobin 12.7 (L) 13.7 - [facility] 16.[facility] g/dL [facility] LABORATORY Hematocrit 37.7 (L) 40.5 - [facility] 48.5 % [facility] LABORATORY MCV 89.3 82.9 - [facility] 93.1 [facility] LABORATORY MCH 30.1 27.5 - [facility] 32.1 pg [facility] LABORATORY MCHC 33.7 32.0 - [facility] 35.7 g/dL [facility] LABORATORY Platelets 292 145 - 357 [facility] x10(3)/[facility] LABORATORY RDWSD 40.2 36.0 - [facility] 45.0 [facility] LABORATORY RDWCV 12.4 11.4 - [facility] 13.8 % [facility] LABORATORY MPV 10.4 7.6 - 12.9 [facility] LABORATORY nRBC % Auto 0.0 % [facility] LABORATORY nRBC Abs Auto 0.000 0.000 - [facility] 0.000 [facility] x10(3)/[facility] LABORATORY Specimen Anatomical Collection Method Collection Time Receive d Time (Source) Location / / Volume Laterality Blood 07/03/2021 12:42 07/03/2021 1:05 AM EDT AM EDT Resulting Agency Comment Spec In Lab Benita Leblanc MD HEMATOLOGY ORDERABLES Performing Organization Address City/State/ZIP Code Phon e Number [address] Magnesium (07/03/2021 12:42 AM EDT) athologist Signature Magnesium 0.87 0.69 - 1.07 [facility] mmol/L [facility] LABORATORY Specimen Anatomical Collection Method Collection Time Receive d Time (Source) Location / / Volume Laterality Blood 07/03/2021 12:42 07/03/2021 1:05 AM EDT AM EDT Resulting Agency Comment Spec In Lab Benita Leblanc MD CHEMISTRY ORDERABLES Performing Organization Address City/[facility]/ZIP Code Phon e Number [address] (ABNORMAL) Basic Metabolic Panel (non-fasting) (07/03/2021 12:42 AM EDT) athologist Signature Glucose Lvl 120 65 - 199 [facility] mg/dL [facility] LABORATORY Comment: Diabetes: >=200 mg/dL plus symp toms BUN 23 (H) 10 - 20 mg/dL [facility] LABORATORY Creatinine 0.83 0.80 - 1.50 mg/dL [facility] LABORATORY Sodium 132 (L) 135 - 145 mmol/L [facility] LABORATORY Potassium 4.0 3.5 - 5.0 mmol/L [facility] LABORATORY Comment: Please note: ??Patients with WBC >100,00 0 may have falsely elevated Potassium levels. ??For accurate Potassium quantif ication in these patients send serum separator tube (gold top) for subsequent determinations. ??Contact the Clinical Chemistry Laboratory if there are any qu estions. Chloride 98 98 - 107 mmol/L [facility] LABORATORY CO2 24 22 - 31 mmol/L [facility] LABORATORY Anion Gap 10 5 - 15 mmol/L [facility] LABORATORY Calcium 8.3 (L) 8.5 - 10.5 mg/dL [facility] LABORATORY Estimated GFR 87 >=60 mL/min/1.73 m?? [facility] LABORATORY Comment: This patient? s estimated [...] Organization Address City/State/[place] [address] (ABNORMAL) Phosphorus (07/03/2021 12:42 AM EDT) P athologist Signature Phosphorus 2.3 (L) 2.5 - 4.5 [facility] mg/dL [facility] LABORATORY Specimen Anatomical Collection Method Collection Time Receive d Time (Source) Location / / Volume Laterality Blood 07/03/2021 12:42 07/03/2021 1:05 AM EDT AM EDT Resulting Agency Comment Spec In Lab Benita Leblanc MD CHEMISTRY ORDERABLES Performing Organization Address City/State/[place] [address] POCT Glucose (07/03/2021 12:02 AM EDT) P athologist Signature POC Glucose 116 65 - 199 [facility] mg/dL [facility] LABORATORY Comment: Supplemental ranges: <140 mg/dL before meals <180 mg/dL all other times of the day Specimen Anatomical Collection Method Collection Time Receive d Time (Source) Location / / Volume Laterality Blood 07/03/2021 12:02 07/03/2021 AM EDT 12:02 AM EDT Benita Leblanc MD POINT OF CARE TEST ORDERABLE S Performing Organization Address City/State/ZIP Code Phon e Number [address] POCT Glucose (07/02/2021 7:26 PM EDT) athologist Signature POC Glucose 150 65 - 199 [facility] LABORATORY Comment: Supplemental ranges: <140 mg/dL before meals <180 mg/dL all other times of the day Specimen Anatomical Collection Method Collection Time Receive d Time (Source) Location / / Volume Laterality Blood 07/02/2021 7:26 PM 2 7:26 EDT PM EDT Benita Leblanc MD POINT OF CARE TEST ORDERABLE S Performing Organization Address City/[facility]/ZIP Code Phon e Number [address] POCT Glucose (07/02/2021 4:34 PM EDT) athologist Signature POC Glucose 125 65 - 199 [facility] mg/dL [facility] LABORATORY Comment: Supplemental ranges: <140 mg/dL before meals <180 mg/dL all other times of the day Specimen Anatomical Collection Method Collection Time Receive d Time (Source) Location / / Volume Laterality Blood 07/02/2021 4:34 PM 2 4:34 EDT PM EDT Benita Leblanc MD POINT OF CARE TEST ORDERABLE S Performing Organization Address City/State/[place] [address] (ABNORMAL) Basic Metabolic Panel (non-fasting) (07/02/2021 11:52 AM EDT) athologist Signature Glucose Lvl 147 65 - 199 [facility] mg/dL [facility] LABORATORY Comment: Diabetes: >=200 mg/dL plus symp toms BUN 19 10 - 20 mg/dL [facility] LABORATORY Creatinine 0.84 0.80 - 1.50 mg/dL [facility] LABORATORY Sodium 133 (L) 135 - 145 mmol/L [facility] LABORATORY Potassium 4.3 3.5 - 5.0 mmol/L [facility] LABORATORY Comment: Please note: ??Patients with WBC >100,00 0 may have falsely elevated Potassium levels. ??For accurate Potassium quantif ication in these patients send serum separator tube (gold top) for subsequent determinations. ??Contact the Clinical Chemistry Laboratory if there are any qu estions. Chloride 97 (L) 98 - 107 mmol/L [facility] LABORATORY CO2 24 22 - 31 mmol/L [facility] LABORATORY Anion Gap 12 5 - 15 mmol/L [facility] LABORATORY Calcium 8.6 8.5 - 10.5 mg/dL [facility] LABORATORY Estimated GFR 86 >=60 mL/min/1.73 m?? [facility] LABORATORY Comment: This patient? s estimated [...] Organization Address City/State/ZIP [place] [address] POCT Glucose (07/02/2021 11:43 AM EDT) athologist Signature POC Glucose 168 65 - 199 [facility] mg/dL [facility] LABORATORY Comment: Supplemental ranges: <140 mg/dL before meals <180 mg/dL all other times of the day Specimen Anatomical Collection Method Collection Time Receive d Time (Source) Location / / Volume Laterality Blood 07/02/2021 11:43 07/02/2021 AM EDT 11:43 AM EDT Benita Leblanc MD POINT OF CARE TEST ORDERABLE S Performing Organization Address City/State/ZIP Code Phon e Number [address] POCT Glucose (07/02/2021 7:34 AM EDT) athologist Signature POC Glucose 138 65 - 199 [facility] mg/dL [facility] LABORATORY Comment: Supplemental ranges: <140 mg/dL before meals <180 mg/dL all other times of the day Specimen Anatomical Collection Method Collection Time Receive d Time (Source) Location / / Volume Laterality Blood 07/02/2021 7:34 AM 2 7:34 EDT AM EDT Mary Lemus MD POINT OF CARE TEST ORDERABLE S Performing Organization Address City/State/ZIP Code Phon e Number [address] POCT Glucose (07/02/2021 3:53 AM EDT) athologist Signature POC Glucose 183 65 - 199 [facility] mg/dL [facility] LABORATORY Comment: Supplemental ranges: <140 mg/dL before meals <180 mg/dL all other times of the day Specimen Anatomical Collection Method Collection Time Receive d Time (Source) Location / / Volume Laterality Blood 07/02/2021 3:53 AM 2 3:53 EDT AM EDT Mary Lemus MD POINT OF CARE TEST ORDERABLE S Performing Organization Address City/State/ZIP Code Phon e Number [address] (ABNORMAL) Differential, Automated (07/02/2021 2:10 AM EDT) [facility] gist Method Time Signature Neutrophils % 83.0 % [facility] LABORATORY Neutr Abs (ANC) 10.92 (H) 1.70 - [facility] 6.10 [facility] x10(3)/[facility] LABORATORY Lymphocytes % 8.4 % [facility] LABORATORY Lymphocytes Abs 1.1 0.9 - 3.2 [facility] x10(3)/[facility] LABORATORY Monocytes % 7.8 % [facility] LABORATORY Monocyte Abs 1.0 (H) 0.3 - 0.9 [facility] x10(3)/[facility] LABORATORY Eosinophils % 0.0 % [facility] LABORATORY Eosinophils Abs 0.0 0.0 - 0.4 [facility] x10(3)/[facility] LABORATORY Basophils % 0.1 % [facility] LABORATORY Basophils Abs 0.0 0.0 - 0.1 [facility] x10(3)/[facility] LABORATORY Immature Gran % 0.70 % [facility] LABORATORY Comment: Immature granulocytes(IG's)percentage an d absolute count will include metamyelocytes, myelocytes, and promyelo cytes. Blood smears from CBCs yielding IG's will be scanned manually for concor dance. If this scan disagrees with the automated IG or if promyelocytes are not ed, a manual differential will be performed. Beba Gran Abs 0.09 (H) 0.00 - 0.04 x10(3)/[facility] LABORATORY Specimen Anatomical Collection Method Collection Time Receive d Time (Source) Location / / Volume Laterality Blood 07/02/2021 2:10 AM 2 2:25 EDT AM EDT Resulting Agency Comment Spec In Lab Mary Lemus MD HEMATOLOGY ORDERABLES Performing Organization Address City/State/ZIP [place] [address] (ABNORMAL) Hemogram (07/02/2021 2:10 AM EDT) Analysis Performed At Patho logist Time Signature WBC 13.2 (H) 4.0 - 9.5 [facility] x10(3)/[facility] LABORATORY RBC 4.14 (L) 4.58 - [facility] 5.54 [facility] x10(6)/[facility] LABORATORY Hemoglobin 12.3 (L) 13.7 - [place] 16.5 g/dL [facility] LABORATORY Hematocrit 36.5 (L) 40.5 - [place] 48.5 % [facility] LABORATORY MCV 88.2 82.9 - [place] 93.1 [facility] LABORATORY MCH 29.7 27.5 - [place] 32.1 pg [facility] LABORATORY MCHC 33.7 32.0 - [place] 35.7 g/dL [facility] LABORATORY Platelets 313 145 - 357 [facility] x10(3)/[facility] LABORATORY RDWSD 39.5 36.0 - [place] 45.0 [facility] LABORATORY RDWCV 12.3 11.4 - [facility] 13.8 % [facility] LABORATORY MPV 10.6 7.6 - 12.9 [facility] LABORATORY nRBC % Auto 0.0 % [facility] LABORATORY nRBC Abs Auto 0.000 0.000 - [facility] 0.000 [facility] x10(3)/[facility] LABORATORY Specimen Anatomical Collection Method Collection Time Receive d Time (Source) Location / / Volume Laterality Blood 07/02/2021 2:10 AM 2 2:25 EDT AM EDT Resulting Agency Comment Spec In Lab Mary Lemus MD HEMATOLOGY ORDERABLES Performing Organization Address City/State/ZIP [place] [address] (ABNORMAL) Basic Metabolic Panel (non-fasting) (07/02/2021 2:10 AM EDT) P athologist Signature Glucose Lvl 138 65 - 199 [facility] mg/dL [facility] LABORATORY Comment: Diabetes: >=200 mg/dL plus symp toms BUN 16 10 - 20 mg/dL [facility] LABORATORY Creatinine 0.88 0.80 - 1.50 mg/dL [facility] LABORATORY Sodium 132 (L) 135 - 145 mmol/L [facility] LABORATORY Potassium 4.2 3.5 - 5.0 mmol/L [facility] LABORATORY Comment: Please note: ??Patients with WBC >100,00 0 may have falsely elevated Potassium levels. ??For accurate Potassium quantif ication in these patients send serum separator tube (gold top) for subsequent determinations. ??Contact the Clinical Chemistry Laboratory if there are any qu estions. Chloride 98 98 - 107 mmol/L [facility] LABORATORY CO2 23 22 - 31 mmol/L [facility] LABORATORY Anion Gap 11 5 - 15 mmol/L [facility] LABORATORY Calcium 8.3 (L) 8.5 - 10.5 mg/dL [facility] LABORATORY Estimated GFR 85 >=60 mL/min/1.73 m?? [facility] LABORATORY Comment: This patient? s estimated [...] Organization Address City/State/ZIP [place] [address] Hemoglobin A1c (07/02/2021 2:10 AM EDT) athologist Signature Hemoglobin A1C 5.5 4.3 - 5.6 [facility] LABORATORY Comment: Reference Range: 4.3 - [...] Avg Gluc See note mg/dL [place] [facility] LABORATORY Comment: Estimated Average Glucose not appropriat [...] with hemoglobinopathies. Additional resources are available on [facility] ADA website. Estefania BERGERON, Carlos J, Tasha R, et al. ??Tr anslating the A1C assay into estimated average glucose values. ??Diabetes Care 2008:31(8):5485-2663. Specimen Anatomical Collection Method Collection Time Receive d Time (Source) Location / / Volume Laterality Blood 07/02/2021 2:10 AM 2 2:25 EDT AM EDT Resulting Agency Comment Spec In Lab Mary Lemus MD CHEMISTRY ORDERABLES Performing Organization Address City/State/ZIP [place] [address] Magnesium (07/02/2021 2:10 AM EDT) athologist Signature Magnesium 0.87 0.69 - 1.07 [place] mmol/L [facility] LABORATORY Specimen Anatomical Collection Method Collection Time Receive d Time (Source) Location / / Volume Laterality Blood 07/02/2021 2:10 AM 2 2:25 EDT AM EDT Resulting Agency Comment Spec In Lab Benita Leblanc MD CHEMISTRY ORDERABLES Performing Organization Address City/[facility]/[place] [address] Phosphorus (07/02/2021 2:10 AM EDT) athologist Signature Phosphorus 3.0 2.5 - 4.5 [place] mg/dL [facility] LABORATORY Specimen Anatomical Collection Method Collection Time Receive d Time (Source) Location / / Volume Laterality Blood 07/02/2021 2:10 AM 2 2:25 EDT AM EDT Resulting Agency Comment Spec In Lab Benita Leblanc MD CHEMISTRY ORDERABLES Performing Organization Address City/[facility]/[place] [address] POCT Glucose (07/02/2021 12:05 AM EDT) athologist Signature POC Glucose 147 65 - 199 [facility] LABORATORY Comment: Supplemental ranges: <140 mg/dL before meals <180 mg/dL all other times of the day Specimen Anatomical Collection Method Collection Time Receive d Time (Source) Location / / Volume Laterality Blood 07/02/2021 12:05 07/02/2021 AM EDT 12:05 AM EDT Mary Lemus MD POINT OF CARE TEST ORDERABLE S Performing Organization Address City/State/[place] [address] POCT Glucose (07/01/2021 8:06 PM EDT) athologist Signature POC Glucose 162 65 - 199 [place] mg/dL [facility] LABORATORY Comment: Supplemental ranges: <140 mg/dL before meals <180 mg/dL all other times of the day Specimen Anatomical Collection Method Collection Time Receive d Time (Source) Location / / Volume Laterality Blood 07/01/2021 8:06 PM 2 8:06 EDT PM EDT Mary Lemus MD POINT OF CARE TEST ORDERABLE S Performing Organization Address City/State/[place] [address] POCT Glucose (07/01/2021 4:28 PM EDT) athologist Signature POC Glucose 150 65 - 199 [place] mg/dL [facility] LABORATORY Comment: Supplemental ranges: <140 mg/dL before meals <180 mg/dL all other times of the day Specimen Anatomical Collection Method Collection Time Receive d Time (Source) Location / / Volume Laterality Blood 07/01/2021 4:28 PM 2 4:28 EDT PM EDT Mary Lemus MD POINT OF CARE TEST ORDERABLE S Performing Organization Address City/State/[place] [address] POCT Glucose (07/01/2021 12:02 PM EDT) athologist Signature POC Glucose 196 65 - 199 [place] mg/dL [facility] LABORATORY Comment: Supplemental ranges: <140 mg/dL before meals <180 mg/dL all other times of the day Specimen Anatomical Collection Method Collection Time Receive d Time (Source) Location / / Volume Laterality Blood 07/01/2021 12:02 07/01/2021 PM EDT 12:02 PM EDT Mary Lemus MD POINT OF CARE TEST ORDERABLE S Performing Organization Address City/State/ZIP Code Phon e Number [address] POCT Glucose (07/01/2021 7:48 AM EDT) athologist Signature POC Glucose 127 65 - 199 [place] mg/dL [facility] LABORATORY Comment: Supplemental ranges: <140 mg/dL before meals <180 mg/dL all other times of the day Specimen Anatomical Collection Method Collection Time Receive d Time (Source) Location / / Volume Laterality Blood 07/01/2021 7:48 AM 2 7:48 EDT AM EDT Mary Lemus MD POINT OF CARE TEST ORDERABLE S Performing Organization Address City/State/ZIP Code Phon e Number [address] POCT Glucose (07/01/2021 4:30 AM EDT) P athologist Signature POC Glucose 145 65 - 199 [facility]/dL [facility] LABORATORY Comment: Supplemental ranges: <140 mg/dL before meals <180 mg/dL all other times of the day Specimen Anatomical Collection Method Collection Time Receive d Time (Source) Location / / Volume Laterality Blood 07/01/2021 4:30 AM 2 4:30 EDT AM EDT Mary Lemus MD POINT OF CARE TEST ORDERABLE S Performing Organization Address City/State/[place] [phone] (ABNORMAL) Differential, Automated (07/01/2021 12:30 AM EDT) Patholo gist Method Time Signature Neutrophils % 84.1 % [facility] LABORATORY Neutr Abs (ANC) 13.53 (H) 1.70 - [facility] 6.10 [facility] x10(3)/[facility] LABORATORY Lymphocytes % 7.7 % [facility] LABORATORY Lymphocytes Abs 1.2 0.9 - 3.2 [facility] x10(3)/[facility] LABORATORY Monocytes % 7.2 % [facility] LABORATORY Monocyte Abs 1.2 (H) 0.3 - 0.9 [facility] x10(3)/[facility] LABORATORY Eosinophils % 0.0 % [facility] LABORATORY Eosinophils Abs 0.0 0.0 - 0.4 [facility] x10(3)/[facility] LABORATORY Basophils % 0.1 % [facility] LABORATORY Basophils Abs 0.0 0.0 - 0.1 [facility] x10(3)/[facility] LABORATORY Immature Gran % 0.90 % [facility] LABORATORY Comment: Immature granulocytes(IG's)percentage an d absolute count will include metamyelocytes, myelocytes, and promyelo cytes. Blood smears from CBCs yielding IG's will be scanned manually for concor dance. If this scan disagrees with the automated IG or if promyelocytes are not ed, a manual differential will be performed. Beba Gran Abs 0.14 (H) 0.00 - 0.04 x10(3)/[facility] LABORATORY Specimen Anatomical Collection Method Collection Time Receive d Time (Source) Location / / Volume Laterality Blood 07/01/2021 12:30 07/01/2021 1:15 AM EDT AM EDT Resulting Agency Comment Spec In Lab Emmy Boyer MD HEMATOLOGY ORDERABLES Performing Organization Address City/State/ZIP [place] [address] (ABNORMAL) Hemogram (07/01/2021 12:30 AM EDT) Analysis Performed At Patho logist Time Signature WBC 16.1 (H) 4.0 - 9.5 [facility] x10(3)/[facility] LABORATORY RBC 4.11 (L) 4.58 - [facility] 5.54 [facility] x10(6)/[facility] LABORATORY Hemoglobin 12.1 (L) 13.7 - [facility] 16.5 g/dL [facility] LABORATORY Hematocrit 35.9 (L) 40.5 - [facility] 48.5 % [facility] LABORATORY MCV 87.3 82.9 - [facility] 93.1 [facility] LABORATORY MCH 29.4 27.5 - [facility] 32.1 pg [facility] LABORATORY MCHC 33.7 32.0 - [facility] 35.7 g/dL [facility] LABORATORY Platelets 319 145 - 357 [facility] x10(3)/[facility] LABORATORY RDWSD 39.3 36.0 - [facility] 45.0 [facility] RDWCV 12.2 11.4 - [facility] 13.8 % [facility] LABORATORY MPV 10.5 7.6 - 12.9 [facility] LABORATORY nRBC % Auto 0.0 % [facility] LABORATORY nRBC Abs Auto 0.000 0.000 - [place] 0.000 [facility] x10(3)/[facility] LABORATORY Specimen Anatomical Collection Method Collection Time Receive d Time (Source) Location / / Volume Laterality Blood 07/01/2021 12:30 07/01/2021 1:15 AM EDT AM EDT Resulting Agency Comment Spec In Lab Emmy Boyer MD HEMATOLOGY ORDERABLES Performing Organization Address City/State/ZIP Code Phon e Number [address] Phosphorus (07/01/2021 12:30 AM EDT) athologist Signature Phosphorus 3.4 2.5 - 4.5 [facility] LABORATORY Specimen Anatomical Collection Method Collection Time Receive d Time (Source) Location / / Volume Laterality Blood 07/01/2021 12:30 07/01/2021 1:15 AM EDT AM EDT Resulting Agency Comment Spec In Lab Benita Leblanc MD CHEMISTRY ORDERABLES Performing Organization Address City/State/ZIP Code Phon e Number [address] Magnesium (07/01/2021 12:30 AM EDT) athologist Signature Magnesium 0.90 0.69 - 1.07 [facility] [place] mmol/L [facility] LABORATORY Specimen Anatomical Collection Method Collection Time Receive d Time (Source) Location / / Volume Laterality Blood 07/01/2021 12:30 07/01/2021 1:15 AM EDT AM EDT Resulting Agency Comment Spec In Lab Benita Leblanc MD CHEMISTRY ORDERABLES Performing Organization Address City/[facility]/ZIP Code Phon e Number [address] (ABNORMAL) Basic Metabolic Panel (non-fasting) (07/01/2021 12:30 AM EDT) athologist Signature Glucose Lvl 121 65 - 199 [facility]/dL [facility] LABORATORY Comment: Diabetes: >=200 mg/dL plus symp toms BUN 18 10 - 20 mg/dL [facility] LABORATORY Creatinine 0.93 0.80 - 1.50 mg/dL [facility] LABORATORY Sodium 136 135 - 145 mmol/L [facility] LABORATORY Potassium 4.3 3.5 - 5.0 mmol/L [facility] LABORATORY Comment: Please note: ??Patients with WBC >100,00 0 may have falsely elevated Potassium levels. ??For accurate Potassium quantif ication in these patients send serum separator tube (gold top) for subsequent determinations. ??Contact the Clinical Chemistry Laboratory if there are any qu estions. Chloride 100 98 - 107 mmol/L [facility] LABORATORY CO2 24 22 - 31 mmol/L [facility] LABORATORY Anion Gap 12 5 - 15 mmol/L [facility] LABORATORY Calcium 8.4 (L) 8.5 - 10.5 mg/dL [facility] LABORATORY Comment: result rechecked-EWR Estimated GFR 81 >=60 mL/min/1.73 m?? [facility] LABORATORY Comment: This patient? s estimated [...] Organization Address City/State/ZIP [place] [address] MRI Brain wwo Contrast [...] who have questions please contact the health summer child caregiver that requested your imaging first. ? Narrative 07/01/2021 8:46 AM EDT EXAMINATION: MRI BRAIN WWO CONTRAST (GENERIC) CLINICAL HISTORY: Brain/WELCOME CENTER AGENT neoplasm, as sess treatment response F/u s/p [...] BRAIN WWO CONTRAST (GEN GILL) CLINICAL HISTORY: Brain/WELCOME CENTER AGENT neoplasm, as sess treatment response F/u s/p [...] ho have questions please contact the health summer child caregiver that requested your imaging first. Mary Lemus MD IMG MRI ORDERABLES POCT Glucose (06/30/2021 8:51 PM EDT) athologist Signature POC Glucose 126 65 - 199 [facility] mg/dL [facility] LABORATORY Comment: Supplemental ranges: <140 mg/dL before meals <180 mg/dL all other times of the day Specimen Anatomical Collection Method Collection Time Receive d Time (Source) Location / / Volume Laterality Blood 06/30/2021 8:51 PM 2 8:51 EDT PM EDT Mary Lemus MD POINT OF CARE TEST ORDERABLE S Performing Organization Address City/State/ZIP [place] [address] POCT Glucose (06/30/2021 2:25 PM EDT) athologist Signature POC Glucose 156 65 - 199 [facility] mg/dL [facility] LABORATORY Comment: Supplemental ranges: <140 mg/dL before meals <180 mg/dL all other times of the day Specimen Anatomical Collection Method Collection Time Receive d Time (Source) Location / / Volume Laterality Blood 06/30/2021 2:25 PM 2:25 EDT PM EDT Mary Lemus MD POINT OF CARE TEST ORDERABLE S Performing Organization Address City/[facility]/ZIP [facility] Phon e Number [address] Solid Tumor NGS Panel (06/30/2021 12:51 PM EDT) Specimen Anatomical Collection Method Collection Time Receive d Time (Source) Location / / Volume Laterality Tissue 06/30/2021 12:51 07/11/2021 PM EDT 12:51 PM EDT Resulting Agency Comment Spec In Lab Estefania Justice MD PATHOLOGY/CYTOLOGY ORDERABLE S Performing Organization Address City/[facility]/ZIP Code Phon e Number [address] Surgical Pathology Report (06/30/2021 12:51 PM EDT) Component Value Ref Test Analysis Performed At [facility] gist Range Method Time Signature Surgical [id number] ? Location: [facility]; [facility]; [facility] Report The signing pathologist has (i) examined the relevant preparation(s) for the [facility] specimen(s) and (ii) rendered or confirmed the [...] MD Verified: ??07/23/2021 12:07 ??Pathologist Performed at: ??-[facility] Dept. of Pathology, [place], [place] SYNOPTIC none DISCUSSION Hematoxylin and eosin-staine [...] The assay was performed according to the threshing machine operator's instructions using Anti-PD-L1 (22C3, pharmDX) antibody. Electronically signed by: ?Gerber ARTHUR PhD, Katrin Verified: ??07/13/2021 10:01 ??Pathologist Performed at: ??-[facility] Dept. of Pathology, [place], [place] ?Fro micaela Section FROZEN SECTION DIAGNOSIS A-FS1: Smear and frozen sect ion preparations on ?? Likely Lung Primary. ? Small Cell or Not???, excision : EPITHELIOID NEOPLASM, FAVOR METASTATIC CARCINOMA. (GJZ) . FROZEN SECTION DIAGNOSIS 06/30/21 13:25 Electronically signed by: ?Wally Ambriz MD Verified: ??06/30/2021 13:30 ??Pathologist Performed at: ??-[facility] Dept. of Pathology, [place], [place] This intraoperative consultation should be interpreted [...] Organization Address City/State/[place] [address] Specimen to Pathology (06/30/2021 12:51 PM EDT) Specimen Anatomical Collection Method Collection Time Receive d Time (Source) Location / / Volume Laterality AP Specimen 06/30/2021 12:51 06/30/2021 PM EDT 12:51 PM EDT Narrative [facility] LABORAT ORY - 06/30/2021 12:51 PM EDT Specimen requisition ordered. ??Separate Pathology report to follow Mary Lemus MD PATHOLOGY/CYTOLOGY ORDERABLE S Performing Organization Address City/[facility]/[place] [address] Specimen to Pathology (06/30/2021 12:51 PM EDT) Specimen Anatomical Collection Method Collection Time Receive d Time (Source) Location / / Volume Laterality AP Specimen 06/30/2021 12:51 06/30/2021 PM EDT 12:51 PM EDT Narrative [facility] LABORAT ORY - 06/30/2021 12:51 PM EDT Specimen requisition ordered. ??Separate Pathology report to follow Mary Lemus MD PATHOLOGY/CYTOLOGY ORDERABLE S Performing Organization Address City/State/ZIP [place] [address] (ABNORMAL) Differential, Automated (06/30/2021 1:12 AM EDT) [facility] gist Method Time Signature Neutrophils % 89.3 % [facility] LABORATORY Neutr Abs (ANC) 15.13 (H) 1.70 - [facility] 6.10 [facility] x10(3)/[facility] LABORATORY Lymphocytes % 6.1 % [facility] LABORATORY Lymphocytes Abs 1.0 0.9 - 3.2 [facility] x10(3)/[facility] LABORATORY Monocytes % 4.0 % [facility] LABORATORY Monocyte Abs 0.7 0.3 - 0.9 [facility] x10(3)/[facility] LABORATORY Eosinophils % 0.0 % [facility] LABORATORY Eosinophils Abs 0.0 0.0 - 0.4 [facility] x10(3)/[facility] LABORATORY Basophils % 0.1 % [facility] LABORATORY Basophils Abs 0.0 0.0 - 0.1 [facility] x10(3)/[facility] LABORATORY Immature Gran % 0.50 % [facility] LABORATORY Comment: Immature granulocytes(IG's)percentage an d absolute count will include metamyelocytes, myelocytes, and promyelo cytes. Blood smears from CBCs yielding IG's will be scanned manually for concor dance. If this scan disagrees with the automated IG or if promyelocytes are not ed, a manual differential will be performed. Beba Gran Abs 0.08 (H) 0.00 - 0.04 x10(3)/[facility] LABORATORY Specimen Anatomical Collection Method Collection Time Receive d Time (Source) Location / / Volume Laterality Blood 06/30/2021 1:12 AM 2 1:34 EDT AM EDT Resulting Agency Comment Spec In Lab Juan Gaytan DO HEMATOLOGY ORDERABLES Performing Organization Address City/[facility]/ZIP [place] [address] (ABNORMAL) Hemogram (06/30/2021 1:12 AM EDT) Analysis Performed At Patho logist Time Signature WBC 16.9 (H) 4.0 - 9.5 [facility] x10(3)/[facility] LABORATORY RBC 4.48 (L) 4.58 - [place] 5.54 [facility] x10(6)/[facility] LABORATORY Hemoglobin 13.1 (L) 13.7 - [facility] 16.5 g/dL [facility] LABORATORY Hematocrit 38.7 (L) 40.5 - [facility] 48.5 % [facility] LABORATORY MCV 86.4 82.9 - [facility] [place] 93.1 [facility] LABORATORY MCH 29.2 27.5 - [place] 32.1 pg [facility] LABORATORY MCHC 33.9 32.0 - [facility] [place] 35.7 g/dL [facility] LABORATORY Platelets 374 (H) 145 - 357 [facility] x10(3)/[facility] LABORATORY RDWSD 38.6 36.0 - [facility] [place] 45.0 [facility] LABORATORY RDWCV 12.1 11.4 - [facility] [place] 13.8 % [facility] LABORATORY MPV 10.0 7.6 - 12.9 [facility] nRBC % Auto 0.0 % [facility] LABORATORY nRBC Abs Auto 0.000 0.000 - [facility] 0.000 [facility] x10(3)/[facility] LABORATORY Specimen Anatomical Collection Method Collection Time Receive d Time (Source) Location / / Volume Laterality Blood 06/30/2021 1:12 AM 2 1:34 EDT AM EDT Resulting Agency Comment Spec In Lab Juan Gaytan DO HEMATOLOGY ORDERABLES Performing Organization Address City/State/ZIP Code Phon e Number [place] [address] Magnesium (06/30/2021 1:12 AM EDT) athologist Signature Magnesium 0.97 0.69 - 1.07 [facility] mmol/L [facility] LABORATORY Specimen Anatomical Collection Method Collection Time Receive d Time (Source) Location / / Volume Laterality Blood 06/30/2021 1:12 AM 2 1:34 EDT AM EDT Resulting Agency Comment Spec In Lab Benita Leblanc MD CHEMISTRY ORDERABLES Performing Organization Address City/State/ZIP Code Phon e Number [address] (ABNORMAL) Basic Metabolic Panel (non-fasting) (06/30/2021 1:12 AM EDT) athologist Signature Glucose Lvl 180 65 - 199 [facility] mg/dL [facility] Comment: Diabetes: >=200 mg/dL plus symp toms BUN 23 (H) 10 - 20 mg/dL [facility] Creatinine 1.20 0.80 - 1.50 mg/dL [facility] Sodium 134 (L) 135 - 145 mmol/L [facility] Potassium 4.2 3.5 - 5.0 mmol/L [facility] Comment: Please note: ??Patients with WBC >100,00 0 may have falsely elevated Potassium levels. ??For accurate Potassium quantif ication in these patients send serum separator tube (gold top) for subsequent determinations. ??Contact the Clinical Chemistry Laboratory if there are any qu estions. Chloride 97 (L) 98 - 107 mmol/L [facility] CO2 25 22 - 31 mmol/L [facility] Anion Gap 12 5 - 15 mmol/L [facility] Calcium 9.4 8.5 - 10.5 mg/dL [facility] Estimated GFR 59 (L) >=60 mL/min/1.73 m?? [facility] Comment: This patient? s estimated [...] Organization Address City/State/[place] [address] EEG awake, asleep, drowsy, routine (06/29/2021 2:20 AM EDT) Narrative Wlaly Lemon Jr., MD - 06/29/2021 2: 20 AM EDT Jessie Radford MD ? 06/29/2021 ??9:55 AM [facility] Department of Neurology Inpatient EEG Report Name of the Patient: ??Betsy Laird Date of : ?1945 Date of Service: ?06/29/2021 Referring physician: ?Juan Gaytan DO BRIEF HISTORY: Betsy Laird is a 75 y.o. patient with s eizure. MEDICATIONS: Current Facility-Administered Medication s Medication Dose Route Frequency Provider Last Rate Last Admin ? ? metoprolol tartrate (Lopressor) tablet 12.5 mg ??12.5 mg Oral Q8H CORIN Juan Gaytan, DO ? sodium chloride 0.9 % (flush) (BD PosiFlush Normal Saline 0.9) flush 5 mL ??5 mL Intravenous BID Juan Gaytan E, DO ?? 5 mL at 06/29/21 0100 ? ? sodium chloride 0.9 % (flush) (BD PosiFlush Normal Saline 0.9) flush 5-20 mL ??5-20 mL Intravenous Q1 M in PRN Juan Gaytan E, DO ? lidocaine (Xylocaine) 1% (10 mg/mL) injection 3 mg ??0.3 mL Subcutaneous Once PRN Lucila, Juan E, DO ? acetaminophen (Tylenol) tablet 975 mg ??975 mg Oral Q8H PRN Juan Gaytan E, DO ? melatonin tablet 6 mg ??6 mg Oral Nightly Juan Gaytan E, DO ? dexamethasone (Decadron) tablet 4 mg ??4 mg Oral Q6H CORIN Juan Gaytan E, DO ?? 4 mg at 06/28/21 2344 ? ? atorvastatin (Lipitor) tablet 80 mg ??80 mg Oral QPM Juan Gaytan E, DO ?? 80 mg at 06/28/212248 ? ? pantoprazole EC (Protonix) tablet 40 mg ??40 mg Oral Daily Juan Gaytan E, DO ?? 40 mg at 06/28/212248 ? ? levETIRAcetam (Keppra) tablet 500 mg ??500 mg Oral BID Juan Gaytan E, DO ? METHODS: A 21 channel digitized electroencephalog michael was performed in the [facility] Clinical Neurophysio logy Laboratory. The 10/20 international system of electrode placement was used and bipolar and referential electrode montag es were recorded. ??In addition to EEG the patient was monitore d for EKG and lateral/vertical eye movements. Video wa s recorded during the session. The duration of the recording w as 70 minutes. [employer] REPORT: Performed by: AT Patient was not [...] Jessie Radford MD Epilepsy fellow PGY-6 Pager #[phone] 06/29/2021 Juan Zeyad Lucila DO NEUROLOGY ORDERABLES CT Chest Abdomen Pelvis [...] who have questions please contact the health summer child caregiver that requested your imaging first. ? Narrative 06/29/2021 1:59 AM EDT EXAMINATION: CT [...] C ONTRAST (GENERIC) CLINICAL HISTORY: Metastatic disease lxei luation new brain masses concerning for metastat [...] ho have questions please contact the health summer child caregiver that requested your imaging first. Jimena Christie CORN GRINDER IMG CT ORDERABLES Prothrombin Time (06/28/2021 9:38 PM EDT) P athologist Signature PT 12.3 9.4 - 12.5 [facility] LABORATORY INR 1.1 [facility] Comment: An INR <2.0 indicates [...] Gaytan DO HEMATOLOGY ORDERABLES Performing Organization Address City/[facility]/ZIP Code Phon e Number [address] APTT (06/28/2021 9:38 PM EDT) P athologist Signature PTT 33 25 - 37 sec [facility] Comment: The PTT is NOT [...] Gaytan DO HEMATOLOGY ORDERABLES Performing Organization Address City/[facility]/[place] [id number] COVID-19 PCR (06/28/2021 9:03 PM EDT) Patholo gist Method Time Signature SARS-CoV-2 Not Detected Not Detected [facility] RNA PCR [facility] Comment: This result should [...] using the Simplexa COVID-19 Direct Assay by [employer] Steff franks as authorized by the FDA issued Emergency Use Authorization (EUA). This assay is intended for In-vitro Diagnostic (IVD) use with nasopharyngeal swabs collected from individuals meeting the CDC criteria for testing. assay is performed based on the instructions for use and additional guid tatum provided by the FDA. Testing is performed in the Microbiology Laboratory within the Department of Pathology and Laboratory Medicine at [facility], certified under the Clinical Laboratory Improvement Amendmen [...] fact sheets at the following FDA website: https://www.fda.gov/medical-devices/gmnpcppyrfy-deqejpg-6029-ufkvb-64-dfahexnxa- bjh-oeeekkiulmfhlj-ptagqgb-devices/dmkbm-pqcykwwldwb-xduh SARS-CoV-2 Source AUTOMOTIVE W[employer]OW TINTER Swab [facility] Specimen (Source) Anatomical Collection Method Collection Time Re ceived Time Location / / Volume Laterality Nasopharyngeal Swab 06/28/2021 9:03 06/28 PM EDT 9:12 PM EDT Comment: Symptoms->Surveillance Resulting Agency Comment Spec In Lab Jimena Christie [facility] MICROBIOLOGY - GENERAL ORDER CHENG Performing Organization Address City/State/ZIP Code [place] [address] XR Chest PA & [...] who have questions please contact the health summer child caregiver that requested your imaging first. ? Narrative 06/28/2021 9:23 PM EDT EXAMINATION: XR [...] original. EXAMINATION: XR CHEST PA AND LATERAL (b-datum NERIC) CLINICAL HISTORY: new brain mass, cough [...] ho have questions please contact the health summer child caregiver that requested your imaging first. Jimena Christie COR[facility] GR[facility]ER IMG DX ORDERABLES CT Head wo Contrast [...] who have questions please contact the health summer child caregiver that requested your imaging first. ? Narrative 06/28/2021 8:03 PM EDT EXAMINATION: CT HEAD WO CONTRAST (GENERIC) CLINICAL HISTORY: W[employer]COME C[employer] AGENT metastatic lesions suspected, initial workup; progressive right [...] edema and local mass effect, with mild jjty-mb-stpuq subfalcine herniation, and effacement of the anterior [...] HEAD WO CONTRAST (GENERI C) CLINICAL HISTORY: [employer] C[employer] AGENT metastatic lesions suspected, initial workup; progressive right [...] edema and local mass effect, with mild lbjw-zw-aaooq subfalcine herniation, and effacement of the anterior [...] ho have questions please contact the health summer child caregiver that requested your imaging first. Falguni Chung MD IMG CT ORDERABLES (ABNORMAL) Differential, Automated (06/28/2021 7:22 PM EDT) [facility] gist Method Time Signature Neutrophils % 68.7 % [facility] Neutr Abs (ANC) 7.38 (H) 1.70 - [facility] 6.10 [facility] x10(3)/[facility] LABORATORY Lymphocytes % 21.1 % [facility] Lymphocytes Abs 2.3 0.9 - 3.2 [facility] x10(3)/[facility] LABORATORY Monocytes % 8.2 % [facility] Monocyte Abs 0.9 0.3 - 0.9 [facility] x10(3)/[facility] LABORATORY Eosinophils % 1.2 % [facility] Eosinophils Abs 0.1 0.0 - 0.4 [facility] x10(3)/[facility] LABORATORY Basophils % 0.6 % [facility] Basophils Abs 0.1 0.0 - 0.1 [facility] x10(3)/[facility] LABORATORY Immature Gran % 0.20 % [facility] Comment: Immature granulocytes(IG's)percentage an d absolute count will include metamyelocytes, myelocytes, and promyelo cytes. Blood smears from CBCs yielding IG's will be scanned manually for concor dance. If this scan disagrees with the automated IG or if promyelocytes are not ed, a manual differential will be performed. Beba Gran Abs 0.02 0.00 - 0.04 x10(3)/[facility] MAR Y [facility] Specimen Anatomical Collection Method Collection Time Receive d Time (Source) Location / / Volume Laterality Blood 06/28/2021 7:22 PM 7:30 EDT PM EDT Resulting Agency Comment Spec In Lab Falguni Chung MD HEMATOLOGY ORDERABLES Performing Organization Address City/State/ZIP [place] [address] (ABNORMAL) Hemogram (06/28/2021 7:22 PM EDT) Analysis Performed At Patho logist Time Signature WBC 10.7 (H) 4.0 - 9.5 [facility] x10(3)/[facility] LABORATORY RBC 4.88 4.58 - [place] 5.54 [facility] x10(6)/[facility] LABORATORY Hemoglobin 14.3 13.7 - [facility] 16.5 g/dL [facility] Hematocrit 42.1 40.5 - [facility] 48.5 % [facility] MCV 86.3 82.9 - [facility] 93.1 [facility] LABORATORY MCH 29.3 27.5 - [facility] 32.1 pg [facility] MCHC 34.0 32.0 - [facility] 35.7 g/dL [facility] Platelets 376 (H) 145 - 357 [facility] x10(3)/[facility] LABORATORY RDWSD 38.6 36.0 - [facility] 45.0 [facility] LABORATORY RDWCV 12.2 11.4 - [facility] 13.8 % [facility] MPV 9.7 7.6 - 12.9 [facility] LABORATORY nRBC % Auto 0.0 % [facility] nRBC Abs Auto 0.000 0.000 - [facility] 0.000 [facility] x10(3)/[facility] LABORATORY Specimen Anatomical Collection Method Collection Time Receive d Time (Source) Location / / Volume Laterality Blood 06/28/2021 7:22 PM 7:30 EDT PM EDT Resulting Agency Comment Spec In Lab Falguni Chung MD HEMATOLOGY ORDERABLES Performing Organization Address City/State/ZIP [place] [address] Basic Metabolic Panel (non-fasting) (06/28/2021 7:22 PM EDT) athologist Signature Glucose Lvl 118 65 - 199 [facility] mg/dL [facility] Comment: Diabetes: >=200 mg/dL plus symp toms BUN 17 10 - 20 mg/dL [facility] Creatinine 0.91 0.80 - 1.50 mg/dL [facility] Sodium 138 135 - 145 mmol/L [facility] Potassium 4.0 3.5 - 5.0 mmol/L [facility] Comment: Please note: ??Patients with WBC >100,00 0 may have falsely elevated Potassium levels. ??For accurate Potassium quantif ication in these patients send serum separator tube (gold top) for subsequent determinations. ??Contact the Clinical Chemistry Laboratory if there are any qu estions. Chloride 102 98 - 107 mmol/L [facility] CO2 22 22 - 31 mmol/L [facility] Anion Gap 14 5 - 15 mmol/L [facility] Calcium 9.4 8.5 - 10.5 mg/dL [facility] Estimated GFR 83 >=60 mL/min/1.73 m?? [facility] Comment: This patient? s estimated [...] Organization Address City/State/ZIP [place] [address] Film Library- Storage Only MR Head and Spine (06/28/2021 6:09 PM EDT) Specimen (Source) Anatomical Location Collection Method / Collectio n Time Received Time / Laterality Volume Narrative Dicom, Auditing User - 06/28/2021 6:09 P M EDT This exam is auto-finalizing. It's purpo se is for storage only. Myriam SNYDER FILM LIBRARY ORDERABLES Film Library- Storage Only MR Spine (06/24/2021 12:00 AM EDT) Specimen (Source) Anatomical Location Collection Method / Collectio n Time Received Time / Laterality Volume Narrative Dicom, Auditing User - 06/28/2021 6:10 P M EDT This exam is auto-finalizing. It's purpo se is for storage only. 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 Seizure Other convulsions Non-small cell carcinoma of lung Malignant neoplasm of bronchus and lung, unspecified site Cigarette nicotine dependence with withd matthieu Drug withdrawal CAD (coronary artery disease), HLD Coronary atherosclerosis of unspecified type of vessel, yuhaaviatam or graft Hyperglycemia Other abnormal glucose Hyponatremia Hyposmolality and/or hyponatremia documented in this encounter Admitting Diagnoses Diagnosis Brain lesion Other conditions of brain documented in this encounter Administered Medications Inactive Administered Medications - up to 3 most recent administrations Medication Order MAR Action Action Date Dose Rate Site acetaminophen (Ofirmev) (1000 Given 06/30/2021 2:40 PM 1,000 mg 400 mL/hr mg/100 mL) infusion 1,000 mg EDT 1,000 mg, Intravenous, at 400 mL/hr, ONCE, 1 dose, On Helen 06/30/21 at 1515, Maximum dose of acetaminophen is 4000 mg from all sources in 24 hours. When ordered for pain, acetaminophen should be given even when other ordered pain medications are indicated. , Routine atorvastatin (Lipitor) tablet 80 mg Given 07/07/2021 4:40 PM EDT 80 mg 80 mg, Oral, EVERY EVENING, First dose on Sun06/28/21 at 2140, Until Discontinued, Routine Given 07/06/2021 4:11 PM EDT 80 mg Given 07/05/2021 4:26 PM EDT 80 mg calcium carbonate (Tums) chewable tablet 500 Given 12:38 PM EDT 500 mg mg 500 mg, Oral, 3 TIMES DAILY PRN, Starting on Sun06/29/21 at 1159, Until Sun07/08/21 at 1446, Heartburn, Routine dexamethasone (Decadron) injection 10 mg Given 06/28/2021 8:57 PM EDT 10 mg 10 mg, Intravenous, ONCE, 1 dose, On Sun06/28/21 at 2036 dexamethasone (Decadron) tablet 1 mg Given 07/08/2021 [...] 0900, Routine dexamethasone (Decadron) tablet 2 mg Given 07/07/2021 8:49 PM EDT 2 mg 2 mg, Oral, EVERY 12 HOURS SCHEDULED (2 times per day), 6 doses, First dose on Sun07/05/21 at 0900, Last dose on Sun07/07/21 at 2100, Routine Given 07/07/2021 8:17 AM EDT 2 mg Given 07/06/2021 9:05 PM EDT 2 mg dexamethasone (Decadron) tablet 4 mg Given 07/02/2021 5:42 AM EDT 4 mg 4 mg, Oral, EVERY 6 HOURS SCHEDULED, First dose on Sun06/29/21 at 0000, Until Discontinued, Routine Given 07/02/2021 12:08 AM EDT 4 mg Given 07/01/2021 5:28 PM EDT 4 mg dexamethasone (Decadron) tablet 4 mg Given 07/04/2021 9:01 PM EDT 4 mg 4 mg, Oral, EVERY 12 HOURS SCHEDULED (2 times per day), 5 doses, First dose on Sun07/02/21 at 2100, Last dose on Sun07/04/21 at 2100, Routine Given 07/04/2021 9:08 AM EDT 4 mg Given 07/03/2021 7:53 PM EDT 4 mg gadoterate meglumine (Dotarem) (0.5 mMol/mL) Given 10:42 PM EDT 15 mLs injection solution 0-100 mL 0-100 mL, Intravenous, ONCE PRN, 1 dose, Starting on Sun06/30/21 at 2242, Until Sun06/30/21 at 2242, Per Protocol, Radiology Contrast, Routine heparin (porcine) (5,000 units/1 mL) Given 07/08/2021 5:09 AM ED T 5,000 Units subcutaneous injection 5,000 Units 5,000 Units, Subcutaneous, EVERY 8 HOURS SCHEDULED, First dose on Sun07/02/21 at 1400, Until Discontinued, Routine Given 07/07/2021 9:23 PM EDT 5,000 Units Given 07/07/2021 2:35 PM EDT 5,000 Units insulin lispro (HumaLOG;Admelog) (100 Given 07/03/2021 3:26 PM E DT 1 Units unit/mL) subcutaneous injection vial 1-4 Units 1-4 Units, Subcutaneous, EVERY 4 HOURS SCHEDULED, First dose on Sun06/30/21 at 1600, Until Discontinued, CORRECTION BOLUS [1-4 Units] Sensitive Sliding Scale (BG in mg/dL): Correction factor 40 (1 unit of insulin is expected to drop the glucose 40 mg/dL) BG 160 - 200 Give 1 unit BG 201 - 240 Give 2 units BG 241 - 280 Give 3 units BG greater than 280, give 4 units and recheck BG in 2 hours. - If recheck BG is LESS than 280, give no insulin and resume schedule - If recheck BG is GREATER than 280, give 4 units and repeat BG in 2 hours (no more than 3 times) & call for new insulin orders. DO NOT hold if NPO, unless specifically directed to do so by written order. Per Blood Glucose Monitoring Policy, re-check a BG of > 240 mg/dL in 2 hours., Routine Given 07/02/2021 12:10 PM EDT 1 Units Given 07/02/2021 4:36 AM EDT 1 Units iohexoL (Omnipaque) (350 mg/mL) solution Given 06/28/2021 11:22 PM EDT 88 mLs 0-200 mL 0-200 mL, Intravenous, ONCE PRN, 1 dose, Starting on Sun06/28/21 at 2322, Until Sun06/28/21 at 2322, Per Protocol, Warning Vesicant/Irritant Medication , Radiology Contrast, Routine iohexoL (Omnipaque) (350 mg/mL) solution Given 06/28/2021 11:22 PM EDT 50 mLs 0-50 mL 0-50 mL, Oral, ONCE PRN, 1 dose, Starting on Sun06/28/21 at 2322, Until Sun06/28/21 at 2322, Per Protocol, Warning Vesicant/Irritant Medication , Radiology Contrast, Routine iohexoL (Omnipaque) radiology oral prep (50 Given 06/10 9:00 PM EDT 240 mLs mL of oral contrast) 240 mL, Oral, ONCE, 1 dose, On Sun06/28/21 at 2101, 8 ounce cup = 240 mL of contrast 2 hours before scan as tolerated. The patient should not eat food or drink any other liquids during the entire period in which they are drinking the contrast. Mix 1 bottle (50 mL) of Omnipaque 350 with 1 liter (1,000 mL) non-carbonated beverage (preferably water). Close cover and shake vigorously and then refrigerate, if desired. Dispose of any excess preparation in a sink. Properly dispose of container., Routine iohexoL (Omnipaque) radiology oral prep (50 Given 06/10 10:00 PM EDT 240 mLs mL of oral contrast) 240 mL, Oral, ONCE, 1 dose, On Sun06/28/21 at 2201, 8 ounce cup = 240 mL of contrast 1 hour before scan as tolerated. The patient should not eat food or drink any other liquids during the entire period in which they are drinking the contrast. Mix 1 bottle (50 mL) of Omnipaque 350 with 1 liter (1,000 mL) non-carbonated beverage (preferably water). Close cover and shake vigorously and then refrigerate, if desired. Dispose of any excess preparation in a sink. Properly dispose of container., Routine iohexoL (Omnipaque) radiology oral prep (50 Given 06/10 10:30 PM EDT 240 mLs mL of oral contrast) 240 mL, Oral, ONCE, 1 dose, On Sun06/28/21 at 2231, 8 ounce cup = 240 mL of contrast 30 minutes before scan as tolerated. The patient should not eat food or drink any other liquids during the entire period in which they are drinking the contrast. Mix 1 bottle (50 mL) of Omnipaque 350 with 1 liter (1,000 mL) non-carbonated beverage (preferably water). Close cover and shake vigorously and then refrigerate, if desired. Dispose of any excess preparation in a sink. Properly dispose of container., Routine iohexoL (Omnipaque) radiology oral prep (50 Given 06/10 10:45 PM EDT 240 mLs mL of oral contrast) 240 mL, Oral, ONCE, 1 dose, On Sun06/28/21 at 2246, 8 ounce cup = 240 mL of contrast 15 minutes before scan as tolerated. The patient should not eat food or drink any other liquids during the entire period in which they are drinking the contrast. Mix 1 bottle (50 mL) of Omnipaque 350 with 1 liter (1,000 mL) non-carbonated beverage (preferably water). Close cover and shake vigorously and then refrigerate, if desired. Dispose of any excess preparation in a sink. Properly dispose of container., Routine labetaloL (Normodyne) (5 mg/mL) injectio n solution [...] Given 07/07/2021 8:17 AM EDT 1,000 mg levETIRAcetam (Keppra) tablet 2,000 mg Given 06/28/2021 11:44 PM EDT 2,000 mg 2,000 mg, Oral, ONCE, 1 dose, On Sun06/28/21 at 2324, Routine metoprolol succinate XL (Toprol-XL) tablet Given 06/28 10:49 PM EDT 37.5 mg 37.5 mg 37.5 mg, Oral, NIGHTLY, First dose on Sun06/28/21 at 2139, Until Discontinued, DO NOT CRUSH OR OPEN Hold for HR <55, SBP <100, Routine metoprolol tartrate (Lopressor) tablet 12.5 Given 06/11 9:04 PM EDT 12.5 mg mg 12.5 mg, Oral, EVERY 8 HOURS SCHEDULED, First dose on Sun06/29/21 at 0600, Until Discontinued, Hold for HR less than 60 or systolic BP less than 100, Routine Given 07/04/2021 2:30 PM EDT 12.5 mg Given 07/03/2021 6:52 AM EDT 12.5 mg metoprolol tartrate (Lopressor) tablet 12.5 Given [...] Discontinued, Verify nicotine 21 mg/24 hr patch ondansetron (pf) (Zofran) (2 mg/mL) injection 4 Given 06/28/2021 9:43 PM EDT 4 mg mg 4 mg, Intravenous, ONCE, 1 dose, On Sun06/28/21 at 2137, STAT ondansetron (pf) (Zofran) (2 mg/mL) injection 4 Given 06/30/2021 8:07 AM EDT 4 mg mg 4 mg, Intravenous, EVERY 8 HOURS PRN, Starting on Sun06/29/21 at 1544, Until Sun07/04/21 at 0839, Nausea, Vomiting Given 06/29/2021 3:47 PM EDT 4 mg ondansetron (Zofran) 4 mg/2 mL injection 1 dose, Starting on Sun06/29/21 at 1546, Until 06/11 at 1547, Merly Casiano: cabinet override pantoprazole EC (Protonix) tablet 40 mg Given [...] DAILY, First dose (after last modification) on Sun07/03/21 at 1600, Until Discontinued, Routine senna-docusate (Pericolace) [...] 8:18 AM EDT 5 mLs sodium chloride 0.9% Rate/Dose Verify 07/01/2021 12:00 PM 100 mL/hr 100 mL/hr infusion EDT 100 mL/hr, Intravenous, CONTINUOUS, Starting on Helen 06/30/21 at 0700, Until Sun07/01/21 at 1835 Rate/Dose Verify 07/01/2021 10:00 AM EDT 100 mL/hr 100 mL/hr Rate/Dose Verify 07/01/2021 8:00 AM EDT 100 mL/hr 100 mL/hr sodium chloride tablet 1 g Given 07/08/2021 8:23 AM EDT 1 g 1 g, Oral, 3 TIMES DAILY, First dose on 07/02/21 at 1545, Until Discontinued, Routine Given 07/07/2021 8:49 PM EDT 1 g Given 07/07/2021 2:34 PM EDT 1 g documented in this encounter Active and Recently [...] 1) 0834 (Given - Provider: Stephanie Carey RN)210 (Given - Provider: Isela Knott RN) 0817 (Given - Provider: Nicole Basurto , SHELBIE)2048 [...] Stephanie Carey RN)2107 (Given - Provider: Isela Knott, SHELBIE) 0556 (Given - Provider: Isela Knott RN)143 (Given - Provider: Nicole Basurto RN)2122 (Given - Provider: Isela Knott, SHELBIE) 050 (Given - Provider: Isela Knott RN) 5,000 Units, Subcutaneous, EVERY 8 HOURS SCHEDULED, First dose on Sun07/02/21 at 1400, Until Discontinued, Routine levETIRAcetam (Keppra) tablet 1,000 mg 0834 (Given - P rovider: Stephanie Carey RN)2104 (Given - Provider: Isela Knott RN) 08 (Given - Provider: Nicole Basurto RN)2049 (Given - Provider: Isela Knott RN) 0823 (Given - Provider: Brandi jeffers, SHELBIE) 1,000 mg, Oral, 2 TIMES DAILY, First dos e (after last modification) on Sun06/29/21 at 0900, Until Discontinued, Routine metoprolol tartrate (Lopressor) tablet 12.5 mg 0834 (G iven - Provider: Stephanie Carey RN)2104 (Given - Provider: Isela Knott RN) 0817 (Given - Provider: Nicole Basurto, SHELBIE)2048 (Given - Provider: Isela Knott RN) 0823 (Given - Provider: Brandi jeffers RN) 12.5 mg, Oral, EVERY 12 HOURS [...] hr patch Patch Removal (Linked Group 2) 0900 (Patch Not Removed (add comment) - [...] Not Verified (add comment) - Provider: Isela Knott RN - Comment: pt doesn't want the patch) 0900 (Patch Not Verified (add comment) - Provider: Nicole Basurto RN - Comment: no patch)2100 (Patch Not Verified (add comment) - Provider: Isela Knott RN - Comment: no patch present) 0824 (Patch Not Verified (add comment) - Provider: Brandi Romano RN - Comment: none in place) Transdermal, 2 TIMES DAILY, First dose o n Helen 06/30/21 at 0200, Until Discontinued, Verify nicotine 21 mg/24 hr patch pantoprazole EC (Protonix) tablet 40 mg 0835 (Given - Provider: Stephanie Carey RN) 08 (Given - Provider: Nicole Basurto RN) 0823 (Gi kory - Provider: Brandi Romano RN) 40 mg, Oral, DAILY, First dose on Sun at 2241, Until Discontinued, DO NOT CRUSH OR OPEN, Routine polyethylene glycoL (Miralax) packet 17 g 0900 (Not Gi kory - Provider: Stephanie Carey RN - Reason: Patient/family refused) 09 (Not Given - Provider: Nicole Basurto RN - Reason: Patient/family refused) 08 (Not Given - Provider: Brandi Romano RN - Reason: Patient/family refused) 17 g, Oral, DAILY, First dose (after las t modification) on Sun07/03/21 at 1600, Until Discontinued, Routine sodium chloride 0.9 % (flush) (BD PosiFlush Normal Rik ine 0.9) flush 5 mL 0835 (Given - Provider: Stephanie Carey RN)2108 (Given - Provider: Isela Knott RN) 08 (Given - Provider: Nicole Basurto RN)2123 (Given - Provider: Isela Knott, SHELBIE) 0824 (Given - Provider: Brandi Romano RN) 5 mL, Intravenous, 2 TIMES DAILY, First dose on Sun06/29/21 at 0100, Until Discontinued, Routine sodium chloride tablet 1 g 0834 (Given - Provider: Christofer Carey RN)1418 (Given - Provider: Stephanie Carey RN)210 (Given - Provider: Isela Knott, SHELBIE) 08 (Given - Provider: Nicole Basurto RN)143 (Given - Provider: Nicole Basurto, SHELBIE)2048 (Given - Provider: Isela nKott RN) 0823 (Given - Provider: Brandi jeffers RN) 1 g, Oral, 3 TIMES DAILY, [...] 2 TIMES DAILY PRN, Start ing on 07/03/21 at 1509, Until Sun07/08/21 at 1446, Constipation, [...] patch
documented in this encounter Care Teams Zoology Teacher Relationship Specialty Start Date End Date Myriam Riggins MD PCP - General Family Medicine 06/28/21 [address] [place] [address] documented as of this encounter
--- OUTSIDE RECORDS SUMMARY | 2021-09-07 15:38 | XMS_ITS | Encounter Summary ---
:1945 Author Organization [facility] Address [address] [place] [address] Care Team Providers Name Role Phone Unavailable Primary Care Provider Unavailable Encounter Details Date Type Department Care Team Description 10/17/2014 Hospital Encounter [facility] - Unknown, Elizabeth bucio [facility] [phone] [place] [address] (Work) [place] [address] Social History Tobacco Use Types Packs/Day Years Used Date Never Assessed Sex Assigned at Date Recorded Not on file documented as of this encounter Discharge Disposition Disposition Code Departure Means Destination Home or Self Jail documented in this encounter Plan of Treatment Not on filedocumented as of this encounter Visit Diagnoses Not on filedocumented in this encounter
--- OUTSIDE RECORDS SUMMARY | 2021-09-07 15:38 | XMS_ITS | Clinical Summary ---
:1945 Author Organization [facility] Address [address] [place] [address] Care Team Providers Name Role Phone Myriam Riggins MD Primary Care Provider Social History Tobacco Use Types Packs/Day Years Used Date Never Assessed Sex Assigned at Date Recorded Not on file Plan of Treatment Health Maintenance Due Date Last Done Comments Hepatitis C Screen 1945 COVID-19 Vaccine (1) 11/09/1950 Fall Risk Screening 11/09/2011 Insurance Payer Benefit Plan Subscriber ID Effective Phone Address Typ e / Group Dates MEDICARE MEDICARE A/B [id number] 2012-Prese [address] Medicare [address] [place] [address] MUTUAL OF MUTUAL OF [id number] 2019-Prese [id number] M[employer]UAL [facility] [place] [address] Care Teams Cover Remover Relationship Specialty Start Date End Date Myriam Riggins MD PCP - General 10/24/[address] [place] [id number]
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
--- NOTE | 2021-09-07 15:54 | NUR.NOTE ---
Nursing Note: pt admitted from ER needs oxygen for breathing. oxygen 92% on 2LPNm NC. pt comfortably in bed no distress noted. Room and controls reviewed with pt. callbell within reach.
[2021-09-07 16:30] LABS: Procalcitonin 0.1 ng/mL
[2021-09-07] MEDS: Enoxaparin 40 MG/0.4 ML SYR SC (17:05)
[2021-09-07] MEDS: predniSONE 20 MG TAB 40 MG PO (17:05)
[2021-09-07] MEDS: Normal Saline Flush 10 ML SYR IVP (17:05)
[2021-09-07] MEDS: Normal Saline 1,000 ML 150 ML IV ×2 (17:05→22:50)
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
[2021-09-07] MEDS: Divalproex 500 MG TABEC PO (21:05)
[2021-09-07] MEDS: Metoprolol 12.5 MG TAB PO (21:05)
[2021-09-07] MEDS: Memantine 5 MG TAB 10 MG PO (21:05)
[2021-09-07 21:07] VITALS: BP 122/79; PULSE 84; RESP 14; TEMP 36.3; O2SAT 90
[2021-09-07] MEDS: Dexamethasone 1 MG TAB 2 MG PO (22:50)
[2021-09-07] MEDS: levETIRAcetam 500 MG TAB 1500 MG PO (22:50)
[2021-09-08] MEDS: Normal Saline 1,000 ML 150 ML IV (05:51)
[2021-09-08 05:54] VITALS: BP 112/73; PULSE 74; RESP 16; TEMP 35.9; O2SAT 92
[2021-09-08 07:46] LABS: Anion Gap 6.6 mmol/L (3-11); BUN 19 mg/dL (7-18); CO2 25.4 mmol/L (21.0-32.0); CREATININE 0.5 mg/dL (0.70-1.30); Calcium 7.5 mg/dL (8.5-10.1); Chloride 104 mmol/L (98-107); Glucose 102 mg/dL (74-106); Potassium 3.6 mmol/L (3.5-5.1); Sodium 136 mmol/L (136-145)
[2021-09-08] MEDS: Memantine 5 MG TAB 10 MG PO (08:19)
[2021-09-08] MEDS: predniSONE 20 MG TAB 40 MG PO (08:19)
[2021-09-08] MEDS: levETIRAcetam 500 MG TAB 1500 MG PO ×2 (08:20→21:00)
[2021-09-08] MEDS: Aspirin E.C. 81 MG TABEC PO (08:20)
[2021-09-08] MEDS: Pantoprazole 40 MG TABCR PO (08:20)
[2021-09-08] MEDS: Salt Supplement (BUFFERED) TAB 1 TAB PO ×2 (08:21→21:00)
[2021-09-08] MEDS: Metoprolol 12.5 MG TAB PO ×2 (08:21→21:00)
[2021-09-08] MEDS: Dexamethasone 1 MG TAB 2 MG PO ×3 (08:21→21:00)
[2021-09-08] MEDS: Divalproex 500 MG TABEC PO ×2 (08:21→21:00)
[2021-09-08] MEDS: Furosemide 20 MG TAB PO (08:21)
[2021-09-08 08:30] VITALS: BP 120/67; PULSE 70; RESP 19; TEMP 36.1; O2SAT 93
--- NOTE | 2021-09-08 14:33 | PDOC.CMIN ---
- If Service Date Differs Date of service: 09/08/21 Time of Service: 14:33 Care Management Initial Assess REASON FOR HOSPITALIZATION:: Pneumonia, Metastatic lung cancer PAST MEDICAL HISTORY/PAST SURGICAL HISTORY:: Medical History . Elevated blood pressure reading (03/16/15). Surgical History . Colonoscopy - MAC (~2001) PREVIOUS FUNCTIONAL STATUS/SOCIAL/FAMILY SUPPORTS:: Resides in [place] with his beloved dog, his daughters and nieces are providing two person at a time care at this time. CURRENT FUNCTIONAL STATUS:: Ilir is on COVID precautions, per MD he is advocating for returning home on Hospice; CM coordinates with Ana sawyer, Tito Walter, RN and Brandy of [facility]. ADVANCE DIRECTIVES:: Ana as agent. Has patient been provided with info about the portal/API?: No Did the patient sign up for the portal?: No CODE STATUS:: Full Code INSURANCE COVERAGE / FINANCIAL ISSUES:: Medicare. [place]. P CURRENT HOME/COMMUNITY SERVICES/EQUIPMENT:: [employer], W/C, Electric W/C, lift recliner. PRIMARY CARE PHYSICIAN:: Myriam Riggins POTENTIAL DISCHARGE NEEDS:: Home O2 through Hospice (John), bedside table, hosptial bed. PATIENT/FAMILY EDUCATION NEEDS:: Hospice admission information, patient visitation limitations. ANTICIPATED BARRIERS TO DISCHARGE:: None identified. TRANSPORTATION:: [facility]; notified. PLAN:: Ilir will return home to be admitted to Hospice with [facility], anticipated for tomorrow. CM advised hospice team of need for hosptial bed, bedside table and O2. AROLDO spoke with Brandy, who advised once [facility] oxygen delivery timing is known, CM will be updated. AROLDO notified digna Kaufman-CM will call Ana to update on discharge timing.
[2021-09-08 15:07] VITALS: BP 112/68; PULSE 78; RESP 16; TEMP 35.8; O2SAT 93
[2021-09-08] MEDS: Enoxaparin 40 MG/0.4 ML SYR SC (17:14)
[2021-09-08 21:03] VITALS: BP 123/81; PULSE 88; RESP 16; TEMP 36.4; O2SAT 94
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
[2021-09-09] MEDS: Metoprolol 12.5 MG TAB PO (08:13)
[2021-09-09] MEDS: Salt Supplement (BUFFERED) TAB 1 TAB PO (08:13)
[2021-09-09] MEDS: Dexamethasone 1 MG TAB 2 MG PO (08:13)
[2021-09-09] MEDS: Furosemide 20 MG TAB PO (08:13)
[2021-09-09] MEDS: Divalproex 500 MG TABEC PO (08:14)
[2021-09-09] MEDS: Pantoprazole 40 MG TABCR PO (08:14)
[2021-09-09] MEDS: Normal Saline Flush 10 ML SYR IVP (08:14)
[2021-09-09 08:19] VITALS: BP 126/76; PULSE 71; RESP 13; TEMP 36.1; O2SAT 92
[2021-09-09] MEDS: levETIRAcetam 500 MG TAB 1500 MG PO (09:05)
--- NOTE | 2021-09-09 10:57 | DSE_ITS ---
Date of service: 09/09/21 Time of Service: 10:58 DS: Diagnosis Discharge Diagnosis (1) Diastolic heart failure: Status: Acute (2) CAD (coronary artery disease): Status: Chronic (3) Lung cancer metastatic to brain: Status: Acute (4) Discharge planning issues: Status: Acute (5) COVID-19: Status: Acute Discharge Plan Disposition Patient Disposition: Hospice; Home Condition: Poor Discharge Details Reason For Visit: Pneumonia,Metastatic Lung Cancer Admit Date/Time: 09/07/21 13:42 Admit Provider: David Matt Attending Provider: David Matt Primary Care Provider: Myriam Riggins [facility] Hospital Course: This is a 75 yo male with lung CA metastatic to brain [place]p [place] [facility] [place],? HTN, CHF, NSTEMI, CAD, GERD.? He presented via EMS with 3 day h/o progressive cough/congestion.? He was mildly hypoxic and placed on 2L supplemental O2 by EMS. He has had no F/C, N/V/diarrhea.? WBC count normal.? Procalcitonin 0.1.? Hgb 10.? Na 135. K 3.8.? Creatinine 0.7. Albumin 1.8.? CXR w/o acute process.? CTA chest w/o pulmonary embolism or consolidation/infiltrate. ED physician spoke with family, including daughter who is his DPOA for health care matters.? He is a DNR/DNI.? He would like to pursue hospice option; preferably at home to with his dog. There was a question of an infiltrate per ED physician but no mention of one in radiology reports.? Zosyn stopped.? Palliative care consulted and patient voice to them also that his wish was to at home with his dog with him. Arrangements made for a hospital bed and home O2 to be delivered to his home. Medications will be determined by Hospice service. Home Meds and New Rx's Prescriptions: No Action acetaminophen-codeine 300 mg-30 mg /12.5 mL solution 12.5 ml PO TID PRN (Reason: cough) Qty: 200 2RF divalproex 500 mg tablet,delayed release (DR/EC) 500 mg PO BID Label Comments: TAKE 1 TABLET BY MOUTH EVERY 12 HOURS dexamethasone 2 mg tablet 2 mg PO 3XD Label Comments: TAKE 1 TABLET BY MOUTH EVERY 8 HOURS pantoprazole 40 mg tablet,delayed release (DR/EC) 40 mg PO DAILY Label Comments: TAKE 1 TABLET BY MOUTH BEFORE BREAKFAST sodium chloride 1,000 mg tablet,soluble 1,000 mg PO Q8H Label Comments: TAKE 1 TABLET BY MOUTH EVERY 8 HOURS levetiracetam 1,000 mg tablet 1,500 mg PO Q12H Label Comments: TAKE 1.5 TABLETS BY MOUTH EVERY 12 HOURS Discharge Instructions Instructions: Hospice Care (GEN) Stand Alone Forms: Nursing Discharge Form Diet:: As Tolerated DS: Summary Time Spent with Patient providing and/or coordinating discharge services: Less than 30 minutes Status at Discharge Functional status at discharge: bed bound Overall status at discharge: patient is not back to baseline Mental Status: mental status grossly normal Speech and Movement: speech clear Mood: congruent mood Affect: blunted Exam Narrative Exam Narrative: Pt in Covny isolation room Resting comfortably. No agitation. Desires to d/c for home hospice. VSS Psych Mental Status: mental status grossly normal Speech and Movement: speech clear Mood: congruent mood Affect: blunted DS: Data Vitals/I&O Vitals and I&O: Vital Signs Temperature 36.1 C L 09/09/21 08:19 Temperature Source Tympanic 09/09/21 08:19 Pulse 71 09/09/21 08:19 Pulse Rhythm Regular 09/09/21 07:45 Respiratory Rate 13 09/09/21 08:19 Respiratory Effort 09/09/21 07:45 Respiratory Depth Normal 09/09/21 07:45 Respiratory Pattern Normal 09/09/21 07:45 Blood Pressure 126/76 09/09/21 08:19 Pulse Oximetry 92 09/09/21 08:19 Oxygen Delivery Method Nasal Cannula 09/09/21 08:19 Oxygen Flow Rate 3 09/09/21 08:19 Pain Level 0 09/09/21 08:19 Comment 09/07/21 21:07 Intake & Output 09/08/21 09/08/21 09/09/21 11:59 23:59 11:59 Intake Total 1000 / 2400 1400 / 2400 Output Total 300 / 825 525 / 825 Balance 700 / 1575 875 / 1575 Intake: IV 1000 / 2000 1000 / 2000 Oral 400 / 400 Output: Urine 300 / 825 525 / 825 Other: Urine Color Dark Mandi Dark Mandi Urine Appearance Clear Clear Clear Urine Odor None Voiding Methods Urinal Urinal PFSH All Active Problems COVID-19 (Acute) Discharge planning issues (Acute) Lung cancer metastatic to brain (Acute) Lung cancer, primary, with metastasis from lung to other site (Acute) Pneumonia (Acute) Right arm weakness (Acute) Right leg weakness (Acute) Screening for colon cancer (Acute) Hypertension (Chronic) Incidental lung nodule, greater than or equal to 8mm (Acute) Heartburn (Acute) Weight loss (Acute) Diastolic heart failure (Acute) Cholelithiasis without obstruction (Chronic) Annual physical exam (Acute) CHF (congestive heart failure) (Chronic) CAD (coronary artery disease) (Chronic ~12/2017) SD 2018; quadruple bypass with pneumothorax Weight loss (Chronic 03/16/14) Vitiligo (Chronic) Tobacco use disorder (Chronic) HX of quitting at different times Testicular hypofunction (Chronic) Hearing loss (Chronic) left Gastroesophageal reflux disease with esophagitis (Chronic) Ankle pain (Chronic 10/19/14) Medical History Elevated blood pressure reading (03/16/15) Surgical History Colonoscopy - MAC (~2001) Family History Mother , SD at age 92. Essential hypertension Heart disease Hyperlipidemia Myocardial infarction Father , 90 Essential hypertension Hyperlipidemia Stroke Social History Smoking/Tobacco Use Status: Former Tobacco Use tobacco type: cigarettes Quit Date: 06/10/21 Pack-years: 54 Tobacco: How many years used: 54 Second Hand Exposure: Yes Smoking risk assessment performed?: Yes Alcohol Intake: current Alcohol Intake frequency: holidays/special occasions only Drug use: Never Substance use type: does not use Household members: none Housing: house Communication Needs: None Do you need help understanding health information?: Never Pets and animals: Yes Pets and animals: dog(s) Sexually active: Yes Do you think of yourself as: straight/heterosexual Current gender identity: male What is your relationship status?: How often do you talk on the phone with friends or family?: three or more times per week How often do you get together with friends or relatives?: three or more times per week How often do you attend jehovah's witness or druze services?: 1-3 times per year Do you belong to any clubs or organized social groups?: no Panel score (0-1 are the most socially isolated patients): 1 Tiana/Moravian: No preference Special tiana needs: No Seatbelt use: sometimes Helmet use: Yes Helmet use: sometimes Drive intox or ride w/intox cross country truck driver: No Do you feel safe at home: Yes Do you feel safe in your relationship?: Yes
--- NOTE | 2021-09-09 11:03 | CMDISCH_ITS ---
- If Service Date Differs Date of service: 09/09/21 Time of Service: 11:03 LACE Index Scoring Tool - Questions: Length of Stay (in days): 2 Acuity (Admit via E.D.?): Yes Comorbidities: Previous M.I., Congestive Heart Failure, Metastatic Solid Tumor E.D. Visits: 1 - Answers: Total Score: 11 Risk of Readmission: High Risk Care Management Discharge Reason for Hospitalization: Pneumonia, Metastatic lung cancer Discharge Plan: Ilir will return home today with support from Hospice, who will admit him today. He will transport via [employer], coordinated by CM. He had all DME that was requested delivered today prior to him returning home. He is happy to be going home. Patient/Family Education Needs: Review discharge instructions and limitations, discussion of self care needs and goals of care. Services Needed at Discharge: Home Health Care Services (Hospice), Transportation ([facility])
== END 2021-09-09 12:27 ==
LOC: ER 13:46 → MS 15:33
PROVIDERS: Admitting Provider Family Medicine; Emergency Provider Emergency Medicine; PCP Family Medicine; Visit Provider Family Medicine
DX: I11.0 Hypertensive heart disease with heart failure (principal); I50.33 Acute on chronic diastolic (congestive) heart failure; I25.10 Atherosclerotic heart disease of native coronary artery without angina pectoris; C79.31 Secondary malignant neoplasm of brain; C34.90 Malignant neoplasm of unspecified part of unspecified bronchus or lung; Z86.16 Personal history of COVID-19; I25.2 Old myocardial infarction; K21.9 Gastro-esophageal reflux disease without esophagitis; R09.02 Hypoxemia; Z66 Do not resuscitate; R79.1 Abnormal coagulation profile; R59.0 Localized enlarged lymph nodes; R05.9 Cough, unspecified
CPT/HCPCS: 36415; 71275; 80048; 80053; 84145; 87637; 93005; 96360; 96361; 96365; 96372; 99285; J1650; 71045; 83735; 83880; 84484; 85025; 85379; 93010; 99219; 99238; G0378; J2543; J3490; J7512; J8540